=== PATIENT | male | born 1935 | race Caucasian/White ===

== ENCOUNTER 2016-06-25 08:41 | Emergency (ER) | payer MEDICARE, MEDICAID ==
[~2016-06-25 08:41] MED LIST: /ADVA50050 INH; /ALEN70TA OR; /ALEN7SOL; /AMIO20TA; /NITR4TASL SL; /PANT40TA; /PANT40TA OR; /TAMS4CA; /TAMS4CA OR; /WARF25TA; /WARF2TA; /WARF2TA OR; /WARF2TA PO; /WARF3TA; /WARF3TA OR; ACET50TAOT PO; ACETAMIN; ALLO100T; ALLO100T OR; ALLO100T PO; AMBI5TAB; AMBI5TAB OR; ANEXIA; ANEXSIA PO; ANTI25TA; AVOD0.5C; AVOD0.5C OR; BACIOIN20 TOP; BACT800T5 PO; CALC600T53 PO; CALC600T7 PO; CALCCHW12; CALCCHW12 OR; CALCIUM PO; CALCTAB68 PO; CARDIZEM CD; CEFT500T PO; CIAL20TA; COLA100C2; COLA100C2 OR; COLC0.6T; COLC0.6T OR; COLC0.6T34 PO; COLCHICINE PO; COUM1TAB; DIGO0.12 PO; DIGO0.126; DIGO25TA PO; DOCQ100C PO; DRON40TA PO; ELIQ5TAB PO; FISH1000; FISH1000 OR; FISH1000 PO; GLUC500T PO; GUAISYP5 PO; HYDR-3716 PO; HYDR-3719 PO; HYDROCODONE; K-TA10TA OR; K-TA10TA2 PO; KETO2CR TOP; LASI20TA; LASI20TA OR; LASI20TA PO; LASI40TA PO; LEVA250T OR; LEVO125T3 PO; LOPR50TA; LOPR50TA OR; LOVA10TA; LOVA10TA OR; LOVA10TA PO; LOVAZA PO; MAPA325T2 PO; MECL-68 PO; MELA10CA PO; MELA1CAP PO; MELA1CAP2 PO; METF-414 PO; METF500T PO; METO5TAB2; METOPROLOL TARTRATE; METROPROLOL; MILKSUS OR; MILKSUS PO; MIRA33504 PO; MIRALAX; MIRALEX; MIRALEX PO; MORP10SU PO; MORP15TA2 PO; MORP15TASA PO; MULTAG; MULTAQ PO; MULTIVIT PO; NEUR300C PO; NITR3TA SL; NITR4TASL SL; OMEP20CA3 PO; OMEP20TA7 OR; OXYC10TA97; OXYC15TA50; OXYC15TA50 OR; OXYC40TA19; PAIN325T OR; PENNSAID TOP; PERCOCET PO; POLYETHYLENE GLYCOL; POTA10CA2; POTA10CA2 OR; ROBA500T PO; SENN8.6T14; SENO8.6T5; SIMV10TA2 OR; SITA50TAB PO; SPIR25TA2 PO; SYNT100T; SYNT100T OR; THERGRAN; TOPR50TA; TOPR50TA OR; TRAM100T13 PO; TRAM50TA2 OR; TRAM50TA2 PO; TUMS500C PO; TYL; TYL325 PO; VICO5TAB; VICO5TAB OR; VITAMIN D50000 UNT; VITMTA PO; [UNRECOGNIZED DRUG - OTHER] PO; [UNRECOGNIZED DRUG - OTHER] PO; fleet enema PR; pennsaid; qpap PO; voltaren gel EXT
[2016-06-25] MEDS ORDERED: ANEXSIA, NORCO 7.5MG/325MG TABLET(HYDROCODONE/APAP) As Ordered ONE (09:24)
--- NOTE | 2016-06-25 10:35 | REP ---
RIGHT ANKLE, FOUR VIEWS: HISTORY: Trauma. There is no acute fracture or dislocation. The joint space is normal in appearance. The bony structure is osteopenic. IMPRESSION: There is no acute fracture or dislocation. Signed by Suleman Moore MD 06/25/2016 10:37 A
--- NOTE | 2016-06-25 10:37 | REP ---
RIGHT FOOT, FOUR VIEWS: HISTORY: Trauma. COMPARISON: 10/20/2014 There is no acute fracture or dislocation. There are old fractures of the 4th and 5th metatarsals. There is narrowing of the 1st metatarsophalangeal joint space with associated osteophyte formation. The bony structure is osteopenic. An osteophyte is present on the inferior calcaneus. IMPRESSION: There is no acute fracture or dislocation. Signed by Suleman Moore MD 06/25/2016 10:37 A
--- NOTE | 2016-06-25 10:38 | EDDOCDS ---
Physician Documentation [facility] Name: Ari Fish Age: 80 yrs Sex: Male : 1935 Arrival Date: 06/25/2016 Time: 08:41 Bed 11 Private MD: Meenu Bernardo Disposition: 06/25 09:40 I have independently interviewed and examined the patient, and I agree with the sd1 investigation, diagnosis and treatment plan as documented by the Resident. Disposition: 06/25/16 09:49 Discharged to Home/Self Care. Impression: Sprain of ankle. - Condition is Stable. - Discharge Instructions: Ankle Sprain, [id number]. - Medication Reconciliation, Local Pharmacy Hours form. - Follow up: Dr. Meenu Bernardo; When: Call to arrange an appointment; Reason: Recheck today's complaints. - Problem is new. - Symptoms have improved. - Notes: You were evaluated in the emergency department for an ankle sprain. Imaging of your ankle and foot reported no fracture. You were given pain medication while in the ED. Please follow-up with Dr. Bernardo at your soonest convenience. Historical: - Allergies: BETA-ADRENERGIC BLOCKING AGENTS; Coumadin; Indocin; Spironolactone; - Home Meds: 1. allopurinol 100 mg Oral tab 2 tabs once daily (Last dose: 06/25/2016 07:00) 2. Calcarb 600 With Vitamin D 600 mg(1,500mg) -400 unit Oral tab twice a day (Last dose: 06/25/2016 07:00) 3. Colace 100 mg oral cap 1 cap 2 times per day (Last dose: 06/25/2016 07:00) 4. digoxin 125 mcg Oral tab 1 tab once daily (Last dose: 06/25/2016 07:00) 5. Eliquis 5 mg oral tab 1 tab 2 times per day (Last dose: 06/25/2016 07:00) 6. Fish Oil 1,000 mg Oral cap twice a day (Last dose: 06/25/2016 07:00) 7. furosemide 20 mg Oral tab once daily at 1400 (Last dose: 06/24/2016 14:00) 8. furosemide 40 mg Oral tab 1 tab once daily at 0900 (Last dose: 06/25/2016 07:00) 9. Guaifenesin-DM 10-100 mg/5 mL oral liqd every 4 hours (Last dose: 06/25/2016 07:00) 10. hydrocodone-acetaminophen 7.5-325 mg Oral tab 1 tab every 6 hours (Last dose: 06/25/2016 07:00) 11. Januvia 50 mg oral tab 1 tabs once daily (Last dose: 06/25/2016 07:00) 12. levothyroxine 125 mcg Oral cap 1 cap once daily (Last dose: 06/25/2016 07:00) 13. lovastatin 10 mg Oral tab 1 tab once daily (Last dose: 06/25/2016 07:00) 14. melatonin 5 mg Oral tab 2 tab as needed (Last dose: 06/24/2016 20:00) 15. metformin 1,000 mg Oral tab 1 tab 2 times per day (Last dose: 06/25/2016 07:00) 16. morphine 15 mg Oral TbER 1 tab twice a day (Last dose: 06/25/2016 07:00) 17. Multaq 400 mg oral tab 1 tab 2 times per day (Last dose: 06/25/2016 07:00) 18. Multivitamin Oral daily (Last dose: 06/25/2016 07:00) 19. Nitrostat 0.4 mg SL subl 1 tab as needed (Last dose: Unknown) 20. omeprazole 20 mg Oral cpDR 1 cap once daily (Last dose: 06/25/2016 07:00) 21. polyethylene glycol 3350 17 gram oral pwpk 1 packet every other day (Last dose: 06/25/2016 07:00) 22. 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 No barriers to communication noted, Speaks appropriately for age. - Family history: Not pertinent. - : The pt / caregiver states he / she is not on anticoagulants. Home medication list is obtained from the patient. - Exposure Risk Screening:: None identified. Vital Signs: 08:50 BP 144 / 65; Pulse 78; Resp 18; Temp 96.8(O); Pulse Ox 94% on R/A; Weight 86.82 kg / nb2 191.41 lbs (R); Height 6 ft. 2 in. (187.96 cm) (R); Pain 9/10; 08:50 Body Mass Index 24.57 (86.82 kg, 187.96 cm) nb2 MDM: 08:56 Ankle, Complete Ordered. EDMS 08:56 Foot, Complete Ordered. EDMS 09:17 HYDROcodone-acetaminophen 7.5 mg-325 mg 1 tabs PO once; With sips only, please ordered. jo4 09:23 ED course: patient seen and examined foot drop chronic caught foot hyperextension sd1 injury no ankle pain or tenderness neuro vasc intact sluice tender plantar surface plan xray. 09:35 Financial registration complete. mm15 09:36 [facility] Payment Agreement was scanned into [employer] and attached to record. mm15 Administered Medications: 09:29 Drug: HYDROcodone-acetaminophen 1 tabs [hydrocodone 7.5 mg-acetaminophen 325 mg tablet ml6 (1 tabs)] Route: PO; Signatures: Dispatcher [employer] EDPeggy Chang MD MD sd1 Angel Reynolds, RN RN ml6 Gail Ramirez mm15 Jenny Godoy DO DO jo4 The chart was reviewed and I authenticate all verbal orders and agree with the evaluation and treatment provided.Attachments: 09:36 [facility] Payment Agreement mm15 MTDD
--- NOTE | 2016-06-25 10:38 | EDDOCDS ---
Nurse's Notes [facility] Name: Ari Fish Age: 80 yrs Sex: Male : 1935 Arrival Date: 06/25/2016 Time: 08:41 Bed 11 Private MD: Meenu Bernardo Diagnosis: Sprain of ankle Presentation: 06/25 08:50 Presenting complaint: Patient states: states that he tripped and bent right foot back ml6 around 0300, denies fall, c/o pain over dorsum of right foot. Adult Sepsis Screening: The patient does not have new or worsening altered mentation. Patient's respiratory rate is less than 22. Systolic blood pressure is greater than 100. Patient has a qSOFA score of 0- Negative Sepsis Screen. Suicide/Homicide risk assessment- the patient denies having any suicidal and/or homicidal ideations and does not present with any other emotional, behavioral or mental health complaints. Status: Patient is not a client service consultant or dependent. Transition of care: patient was not received from another setting of care. 08:50 Acuity: YAMEL Level 4 ml6 08:50 Method Of Arrival: Ambulance ml6 Triage Assessment: 08:50 General: Appears in no apparent distress, Behavior is appropriate for age, cooperative. ml6 Pain: Location: right lateral malleolus, right medial malleolus and dorsum of right foot Pain currently is 9 out of 10 on a pain scale. Pain does not radiate. Quality of pain is described as aching, Pain began 4 hours ago Is continuous. Neurological: No deficits noted. Level of Consciousness is awake, alert, Oriented to person, place, time. Cardiovascular: No deficits noted. Capillary refill < 3 seconds is brisk in bilateral fingers toes. Respiratory: No deficits noted. Airway is patent Respiratory effort is even, unlabored, Respiratory pattern is regular, symmetrical, Breath sounds are clear bilaterally. GI: No deficits noted. Musculoskeletal: Circulation, motion, and sensation intact Capillary refill < 3 seconds is brisk in bilateral fingers toes Range of motion intact in all extremities. No deformity noted Swelling absent Signs and Symptoms of Compartment Syndrome: no signs of compartment syndrome. Historical: - Allergies: BETA-ADRENERGIC BLOCKING AGENTS; Coumadin; Indocin; Spironolactone; - Home Meds: 1. allopurinol 100 mg Oral tab 2 tabs once daily (Last dose: 06/25/2016 07:00) 2. Calcarb 600 With Vitamin D 600 mg(1,500mg) -400 unit Oral tab twice a day (Last dose: 06/25/2016 07:00) 3. Colace 100 mg oral cap 1 cap 2 times per day (Last dose: 06/25/2016 07:00) 4. digoxin 125 mcg Oral tab 1 tab once daily (Last dose: 06/25/2016 07:00) 5. Eliquis 5 mg oral tab 1 tab 2 times per day (Last dose: 06/25/2016 07:00) 6. Fish Oil 1,000 mg Oral cap twice a day (Last dose: 06/25/2016 07:00) 7. furosemide 20 mg Oral tab once daily at 1400 (Last dose: 06/24/2016 14:00) 8. furosemide 40 mg Oral tab 1 tab once daily at 0900 (Last dose: 06/25/2016 07:00) 9. Guaifenesin-DM 10-100 mg/5 mL oral liqd every 4 hours (Last dose: 06/25/2016 07:00) 10. hydrocodone-acetaminophen 7.5-325 mg Oral tab 1 tab every 6 hours (Last dose: 06/25/2016 07:00) 11. Januvia 50 mg oral tab 1 tabs once daily (Last dose: 06/25/2016 07:00) 12. levothyroxine 125 mcg Oral cap 1 cap once daily (Last dose: 06/25/2016 07:00) 13. lovastatin 10 mg Oral tab 1 tab once daily (Last dose: 06/25/2016 07:00) 14. melatonin 5 mg Oral tab 2 tab as needed (Last dose: 06/24/2016 20:00) 15. metformin 1,000 mg Oral tab 1 tab 2 times per day (Last dose: 06/25/2016 07:00) 16. morphine 15 mg Oral TbER 1 tab twice a day (Last dose: 06/25/2016 07:00) 17. Multaq 400 mg oral tab 1 tab 2 times per day (Last dose: 06/25/2016 07:00) 18. Multivitamin Oral daily (Last dose: 06/25/2016 07:00) 19. Nitrostat 0.4 mg SL subl 1 tab as needed (Last dose: Unknown) 20. omeprazole 20 mg Oral cpDR 1 cap once daily (Last dose: 06/25/2016 07:00) 21. polyethylene glycol 3350 17 gram oral pwpk 1 packet every other day (Last dose: 06/25/2016 07:00) 22. 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 No barriers to communication noted, Speaks appropriately for age. - Family history: Not pertinent. - : The pt / caregiver states he / she is not on anticoagulants. Home medication list is obtained from the patient. - Exposure Risk Screening:: None identified. Screenin:34 Screening information is obtained from the patient. Fall risk: At risk due to age, gait ml6 disturbance. Assistance ADL's: requires no assistance with activities of daily living. Abuse/DV Screen: The patient / caregiver reports he/she is: not in a situation that causes fear, pain or injury. Nutritional screening: No deficits noted. Advance Directives: Currently, there is. home support is adequate. Assessment: 08:50 General: see triage assessment. Musculoskeletal: Circulation, motion, and sensation ml6 intact Capillary refill < 3 seconds is brisk in bilateral fingers toes Range of motion intact in all extremities. No deformity noted Swelling absent Signs and Symptoms of Compartment Syndrome: no signs of compartment syndrome. 09:50 Reassessment: Patient appears in no apparent distress at this time. Patient denies pain ml6 at this time. Patient states feeling better. Patient states symptoms have improved. 10:35 General: Appears in no apparent distress, comfortable. Pain: Location: right foot Pain ml6 currently is 3 out of 10 on a pain scale. Pain does not radiate. Quality of pain is described as aching, Pain began 4 hours ago Is continuous Alleviated by nothing. Aggravated by increased activity. Neurological: No deficits noted. Cardiovascular: No deficits noted. Capillary refill < 3 seconds is brisk in bilateral fingers toes. Respiratory: No deficits noted. GI: No deficits noted. Vital Signs: 08:50 BP 144 / 65; Pulse 78; Resp 18; Temp 96.8(O); Pulse Ox 94% on R/A; Weight 86.82 kg (R); nb2 Height 6 ft. 2 in. (187.96 cm) (R); Pain 9/10; 08:50 Body Mass Index 24.57 (86.82 kg, 187.96 cm) nb2 Vitals: 08:50 Log In Time N/A - ambulance arrival. nb2 ED Course: 08:43 Patient visited by Kelsey Vega, Investigations Manager. lbd 08:43 Meenu Bernardo DO is Private Physician. lbd 08:43 Patient moved to Waiting lbd 08:43 Patient moved to 11 lbd 08:44 [facility] jo4 08:44 Peggy Alvarez MD is Attending Physician. jo4 08:50 Bed in low position. Call light in reach. Side rails up X2. nb2 08:51 Patient visited by Erna Null. nb2 08:51 Triage Initiated ml6 09:00 Patient visited by Jenny Godoy DO. jo4 09:00 Patient visited by Jenny Godoy DO. jo4 09:21 Patient visited by Angel Reynolds RN. ml6 09:36 [facility] Payment Agreement was scanned into [employer] and attached to record. mm15 09:49 Meenu Bernardo DO is Referral Physician. jo4 10:35 The patient / caregiver is instructed regarding the plan of care and ED course. ml6 10:36 No IV's were initiated during this patient's visit. No procedures done that require ml6 assistance. Administered Medications: 09:29 Drug: HYDROcodone-acetaminophen 1 tabs [hydrocodone 7.5 mg-acetaminophen 325 mg tablet ml6 (1 tabs)] Route: PO; Order Results: There are currently no results for this order. Outcome: 09:49 Discharge ordered by Provider. jo4 10:36 Discharge Assessment: patient administered narcotics - yes. Pt provided with safe ml6 discharge. The following High Risk Discharge criteria are identified: None. Discharged to fpc. Report called to [facility]. Condition: stable. Discharge instructions given to patient, Instructed on discharge instructions, follow up and referral plans. medication usage, Demonstrated understanding of instructions, medications, Pt was receptive of discharge instructions/ teaching. No special radiology studies were completed. Property :Personal belongings accompany Pt. 10:36 Patient left the ED. ml6 Signatures: Kelsey Vega, Investigations Manager Unit lbd Angel Reynolds RN RN ml6 Gail Ramirez mm15 Jenny Godoy DO DO jo4 Erna Null nb2 MTDD
--- NOTE | 2016-06-27 11:37 | EDDOCDS ---
Physician Documentation [facility] Name: Ari Fish Age: 80 yrs Sex: Male : 1935 Arrival Date: 06/25/2016 Time: 08:41 Bed 11 Private MD: Meenu Bernardo Disposition: 06/25 09:40 I have independently interviewed and examined the patient, and I agree with the sd1 investigation, diagnosis and treatment plan as documented by the Resident. Disposition: 06/25/16 09:49 Discharged to Home/Self Care. Impression: Sprain of ankle. - Condition is Stable. - Discharge Instructions: Ankle Sprain, [id number]. - Medication Reconciliation, Local Pharmacy Hours form. - Follow up: Dr. Meenu Bernardo; When: Call to arrange an appointment; Reason: Recheck today's complaints. - Problem is new. - Symptoms have improved. - Notes: You were evaluated in the emergency department for an ankle sprain. Imaging of your ankle and foot reported no fracture. You were given pain medication while in the ED. Please follow-up with Dr. Bernardo at your soonest convenience. Historical: - Allergies: BETA-ADRENERGIC BLOCKING AGENTS; Coumadin; Indocin; Spironolactone; - Home Meds: 1. allopurinol 100 mg Oral tab 2 tabs once daily (Last dose: 06/25/2016 07:00) 2. Calcarb 600 With Vitamin D 600 mg(1,500mg) -400 unit Oral tab twice a day (Last dose: 06/25/2016 07:00) 3. Colace 100 mg oral cap 1 cap 2 times per day (Last dose: 06/25/2016 07:00) 4. digoxin 125 mcg Oral tab 1 tab once daily (Last dose: 06/25/2016 07:00) 5. Eliquis 5 mg oral tab 1 tab 2 times per day (Last dose: 06/25/2016 07:00) 6. Fish Oil 1,000 mg Oral cap twice a day (Last dose: 06/25/2016 07:00) 7. furosemide 20 mg Oral tab once daily at 1400 (Last dose: 06/24/2016 14:00) 8. furosemide 40 mg Oral tab 1 tab once daily at 0900 (Last dose: 06/25/2016 07:00) 9. Guaifenesin-DM 10-100 mg/5 mL oral liqd every 4 hours (Last dose: 06/25/2016 07:00) 10. hydrocodone-acetaminophen 7.5-325 mg Oral tab 1 tab every 6 hours (Last dose: 06/25/2016 07:00) 11. Januvia 50 mg oral tab 1 tabs once daily (Last dose: 06/25/2016 07:00) 12. levothyroxine 125 mcg Oral cap 1 cap once daily (Last dose: 06/25/2016 07:00) 13. lovastatin 10 mg Oral tab 1 tab once daily (Last dose: 06/25/2016 07:00) 14. melatonin 5 mg Oral tab 2 tab as needed (Last dose: 06/24/2016 20:00) 15. metformin 1,000 mg Oral tab 1 tab 2 times per day (Last dose: 06/25/2016 07:00) 16. morphine 15 mg Oral TbER 1 tab twice a day (Last dose: 06/25/2016 07:00) 17. Multaq 400 mg oral tab 1 tab 2 times per day (Last dose: 06/25/2016 07:00) 18. Multivitamin Oral daily (Last dose: 06/25/2016 07:00) 19. Nitrostat 0.4 mg SL subl 1 tab as needed (Last dose: Unknown) 20. omeprazole 20 mg Oral cpDR 1 cap once daily (Last dose: 06/25/2016 07:00) 21. polyethylene glycol 3350 17 gram oral pwpk 1 packet every other day (Last dose: 06/25/2016 07:00) 22. 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 No barriers to communication noted, Speaks appropriately for age. - Family history: Not pertinent. - : The pt / caregiver states he / she is not on anticoagulants. Home medication list is obtained from the patient. - Exposure Risk Screening:: None identified. Vital Signs: 08:50 BP 144 / 65; Pulse 78; Resp 18; Temp 96.8(O); Pulse Ox 94% on R/A; Weight 86.82 kg / nb2 191.41 lbs (R); Height 6 ft. 2 in. (187.96 cm) (R); Pain 9/10; 08:50 Body Mass Index 24.57 (86.82 kg, 187.96 cm) nb2 MDM: 08:56 Ankle, Complete Ordered. EDMS 08:56 Foot, Complete Ordered. EDMS 09:17 HYDROcodone-acetaminophen 7.5 mg-325 mg 1 tabs PO once; With sips only, please ordered. jo4 09:23 ED course: patient seen and examined foot drop chronic caught foot hyperextension sd1 injury no ankle pain or tenderness neuro vasc intact picker tender helper plantar surface plan xray. 09:35 Financial registration complete. mm15 09:36 [facility] Payment Agreement was scanned into [employer] and attached to record. mm15 13:23 T-Sheet-- Draft Copy was scanned into [employer] and attached to record. gb 13:24 PCR was scanned into [employer] and attached to record. gb Administered Medications: 09:29 Drug: HYDROcodone-acetaminophen 1 tabs [hydrocodone 7.5 mg-acetaminophen 325 mg tablet ml6 (1 tabs)] Route: PO; Signatures: Dispatcher [employer] EDIA Peggy Alvarez MD MD sd1 Amarilis Degroot, Reg Reg gb Angel Reynolds RN RN ml6 Gail Ramirez mm15 Jenny Godoy DO DO jo4 The chart was reviewed and I authenticate all verbal orders and agree with the evaluation and treatment provided.Attachments: 09:36 [facility] Payment Agreement mm15 13:23 T-Sheet-- Draft Copy Chart Complete MTDD
--- NOTE | 2016-06-27 11:37 | EDDOCDS ---
Physician Documentation [facility] Name: Ari Fish Age: 80 yrs Sex: Male : 1935 Arrival Date: 06/25/2016 Time: 08:41 Bed 11 Private MD: Meenu Bernardo Disposition: 06/25 09:40 I have independently interviewed and examined the patient, and I agree with the sd1 investigation, diagnosis and treatment plan as documented by the Resident. Disposition: 06/25/16 09:49 Discharged to Home/Self Care. Impression: Sprain of ankle. - Condition is Stable. - Discharge Instructions: Ankle Sprain, [id number]. - Medication Reconciliation, Local Pharmacy Hours form. - Follow up: Dr. Meenu Bernardo; When: Call to arrange an appointment; Reason: Recheck today's complaints. - Problem is new. - Symptoms have improved. - Notes: You were evaluated in the emergency department for an ankle sprain. Imaging of your ankle and foot reported no fracture. You were given pain medication while in the ED. Please follow-up with Dr. Bernardo at your soonest convenience. Historical: - Allergies: BETA-ADRENERGIC BLOCKING AGENTS; Coumadin; Indocin; Spironolactone; - Home Meds: 1. allopurinol 100 mg Oral tab 2 tabs once daily (Last dose: 06/25/2016 07:00) 2. Calcarb 600 With Vitamin D 600 mg(1,500mg) -400 unit Oral tab twice a day (Last dose: 06/25/2016 07:00) 3. Colace 100 mg oral cap 1 cap 2 times per day (Last dose: 06/25/2016 07:00) 4. digoxin 125 mcg Oral tab 1 tab once daily (Last dose: 06/25/2016 07:00) 5. Eliquis 5 mg oral tab 1 tab 2 times per day (Last dose: 06/25/2016 07:00) 6. Fish Oil 1,000 mg Oral cap twice a day (Last dose: 06/25/2016 07:00) 7. furosemide 20 mg Oral tab once daily at 1400 (Last dose: 06/24/2016 14:00) 8. furosemide 40 mg Oral tab 1 tab once daily at 0900 (Last dose: 06/25/2016 07:00) 9. Guaifenesin-DM 10-100 mg/5 mL oral liqd every 4 hours (Last dose: 06/25/2016 07:00) 10. hydrocodone-acetaminophen 7.5-325 mg Oral tab 1 tab every 6 hours (Last dose: 06/25/2016 07:00) 11. Januvia 50 mg oral tab 1 tabs once daily (Last dose: 06/25/2016 07:00) 12. levothyroxine 125 mcg Oral cap 1 cap once daily (Last dose: 06/25/2016 07:00) 13. lovastatin 10 mg Oral tab 1 tab once daily (Last dose: 06/25/2016 07:00) 14. melatonin 5 mg Oral tab 2 tab as needed (Last dose: 06/24/2016 20:00) 15. metformin 1,000 mg Oral tab 1 tab 2 times per day (Last dose: 06/25/2016 07:00) 16. morphine 15 mg Oral TbER 1 tab twice a day (Last dose: 06/25/2016 07:00) 17. Multaq 400 mg oral tab 1 tab 2 times per day (Last dose: 06/25/2016 07:00) 18. Multivitamin Oral daily (Last dose: 06/25/2016 07:00) 19. Nitrostat 0.4 mg SL subl 1 tab as needed (Last dose: Unknown) 20. omeprazole 20 mg Oral cpDR 1 cap once daily (Last dose: 06/25/2016 07:00) 21. polyethylene glycol 3350 17 gram oral pwpk 1 packet every other day (Last dose: 06/25/2016 07:00) 22. 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 No barriers to communication noted, Speaks appropriately for age. - Family history: Not pertinent. - : The pt / caregiver states he / she is not on anticoagulants. Home medication list is obtained from the patient. - Exposure Risk Screening:: None identified. Vital Signs: 08:50 BP 144 / 65; Pulse 78; Resp 18; Temp 96.8(O); Pulse Ox 94% on R/A; Weight 86.82 kg / nb2 191.41 lbs (R); Height 6 ft. 2 in. (187.96 cm) (R); Pain 9/10; 08:50 Body Mass Index 24.57 (86.82 kg, 187.96 cm) nb2 MDM: 08:56 Ankle, Complete Ordered. EDMS 08:56 Foot, Complete Ordered. EDMS 09:17 HYDROcodone-acetaminophen 7.5 mg-325 mg 1 tabs PO once; With sips only, please ordered. 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 09:35 Financial registration complete. mm15 09:36 [facility] Payment Agreement was scanned into [employer] and attached to record. mm15 13:23 T-Sheet-- Draft Copy was scanned into [employer] and attached to record. gb 13:24 PCR was scanned into [employer] and attached to record. gb Administered Medications: 09:29 Drug: HYDROcodone-acetaminophen 1 tabs [hydrocodone 7.5 mg-acetaminophen 325 mg tablet ml6 (1 tabs)] Route: PO; Signatures: Dispatcher [employer] EDSD Peggy Alvarez MD MD sd1 Amarilis Degroot, Reg Reg gb Angel Reynolds RN RN ml6 Gail Ramirez mm15 Jenny Godoy DO DO jo4 The chart was reviewed and I authenticate all verbal orders and agree with the evaluation and treatment provided.Attachments: 09:36 [facility] Payment Agreement mm15 13:23 T-Sheet-- Draft Copy Chart Complete MTDD
--- NOTE | 2016-06-27 11:37 | EDDOCDS ---
Nurse's Notes [facility] Name: Ari Fish Age: 80 yrs Sex: Male : 1935 Arrival Date: 06/25/2016 Time: 08:41 Bed 11 Private MD: Meenu Bernardo Diagnosis: Sprain of ankle Presentation: 06/25 08:50 Presenting complaint: Patient states: states that he tripped and bent right foot back ml6 around 0300, denies fall, c/o pain over dorsum of right foot. Adult Sepsis Screening: The patient does not have new or worsening altered mentation. Patient's respiratory rate is less than 22. Systolic blood pressure is greater than 100. Patient has a qSOFA score of 0- Negative Sepsis Screen. Suicide/Homicide risk assessment- the patient denies having any suicidal and/or homicidal ideations and does not present with any other emotional, behavioral or mental health complaints. Status: Patient is not a patient service associate or dependent. Transition of care: patient was not received from another setting of care. 08:50 Acuity: YAMEL Level 4 ml6 08:50 Method Of Arrival: Ambulance ml6 Triage Assessment: 08:50 General: Appears in no apparent distress, Behavior is appropriate for age, cooperative. ml6 Pain: Location: right lateral malleolus, right medial malleolus and dorsum of right foot Pain currently is 9 out of 10 on a pain scale. Pain does not radiate. Quality of pain is described as aching, Pain began 4 hours ago Is continuous. Neurological: No deficits noted. Level of Consciousness is awake, alert, Oriented to person, place, time. Cardiovascular: No deficits noted. Capillary refill < 3 seconds is brisk in bilateral fingers toes. Respiratory: No deficits noted. Airway is patent Respiratory effort is even, unlabored, Respiratory pattern is regular, symmetrical, Breath sounds are clear bilaterally. GI: No deficits noted. Musculoskeletal: Circulation, motion, and sensation intact Capillary refill < 3 seconds is brisk in bilateral fingers toes Range of motion intact in all extremities. No deformity noted Swelling absent Signs and Symptoms of Compartment Syndrome: no signs of compartment syndrome. Historical: - Allergies: BETA-ADRENERGIC BLOCKING AGENTS; Coumadin; Indocin; Spironolactone; - Home Meds: 1. allopurinol 100 mg Oral tab 2 tabs once daily (Last dose: 06/25/2016 07:00) 2. Calcarb 600 With Vitamin D 600 mg(1,500mg) -400 unit Oral tab twice a day (Last dose: 06/25/2016 07:00) 3. Colace 100 mg oral cap 1 cap 2 times per day (Last dose: 06/25/2016 07:00) 4. digoxin 125 mcg Oral tab 1 tab once daily (Last dose: 06/25/2016 07:00) 5. Eliquis 5 mg oral tab 1 tab 2 times per day (Last dose: 06/25/2016 07:00) 6. Fish Oil 1,000 mg Oral cap twice a day (Last dose: 06/25/2016 07:00) 7. furosemide 20 mg Oral tab once daily at 1400 (Last dose: 06/24/2016 14:00) 8. furosemide 40 mg Oral tab 1 tab once daily at 0900 (Last dose: 06/25/2016 07:00) 9. Guaifenesin-DM 10-100 mg/5 mL oral liqd every 4 hours (Last dose: 06/25/2016 07:00) 10. hydrocodone-acetaminophen 7.5-325 mg Oral tab 1 tab every 6 hours (Last dose: 06/25/2016 07:00) 11. Januvia 50 mg oral tab 1 tabs once daily (Last dose: 06/25/2016 07:00) 12. levothyroxine 125 mcg Oral cap 1 cap once daily (Last dose: 06/25/2016 07:00) 13. lovastatin 10 mg Oral tab 1 tab once daily (Last dose: 06/25/2016 07:00) 14. melatonin 5 mg Oral tab 2 tab as needed (Last dose: 06/24/2016 20:00) 15. metformin 1,000 mg Oral tab 1 tab 2 times per day (Last dose: 06/25/2016 07:00) 16. morphine 15 mg Oral TbER 1 tab twice a day (Last dose: 06/25/2016 07:00) 17. Multaq 400 mg oral tab 1 tab 2 times per day (Last dose: 06/25/2016 07:00) 18. Multivitamin Oral daily (Last dose: 06/25/2016 07:00) 19. Nitrostat 0.4 mg SL subl 1 tab as needed (Last dose: Unknown) 20. omeprazole 20 mg Oral cpDR 1 cap once daily (Last dose: 06/25/2016 07:00) 21. polyethylene glycol 3350 17 gram oral pwpk 1 packet every other day (Last dose: 06/25/2016 07:00) 22. 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 No barriers to communication noted, Speaks appropriately for age. - Family history: Not pertinent. - : The pt / caregiver states he / she is not on anticoagulants. Home medication list is obtained from the patient. - Exposure Risk Screening:: None identified. Screenin:34 Screening information is obtained from the patient. Fall risk: At risk due to age, gait ml6 disturbance. Assistance ADL's: requires no assistance with activities of daily living. Abuse/DV Screen: The patient / caregiver reports he/she is: not in a situation that causes fear, pain or injury. Nutritional screening: No deficits noted. Advance Directives: Currently, there is. home support is adequate. Assessment: 08:50 General: see triage assessment. Musculoskeletal: Circulation, motion, and sensation ml6 intact Capillary refill < 3 seconds is brisk in bilateral fingers toes Range of motion intact in all extremities. No deformity noted Swelling absent Signs and Symptoms of Compartment Syndrome: no signs of compartment syndrome. 09:50 Reassessment: Patient appears in no apparent distress at this time. Patient denies pain ml6 at this time. Patient states feeling better. Patient states symptoms have improved. 10:35 General: Appears in no apparent distress, comfortable. Pain: Location: right foot Pain ml6 currently is 3 out of 10 on a pain scale. Pain does not radiate. Quality of pain is described as aching, Pain began 4 hours ago Is continuous Alleviated by nothing. Aggravated by increased activity. Neurological: No deficits noted. Cardiovascular: No deficits noted. Capillary refill < 3 seconds is brisk in bilateral fingers toes. Respiratory: No deficits noted. GI: No deficits noted. Vital Signs: 08:50 BP 144 / 65; Pulse 78; Resp 18; Temp 96.8(O); Pulse Ox 94% on R/A; Weight 86.82 kg (R); nb2 Height 6 ft. 2 in. (187.96 cm) (R); Pain 9/10; 08:50 Body Mass Index 24.57 (86.82 kg, 187.96 cm) nb2 Vitals: 08:50 Log In Time N/A - ambulance arrival. nb2 ED Course: 08:43 Patient visited by Kelsey Vega, Furniture Packer. lbd 08:43 Meenu Bernardo DO is Private Physician. lbd 08:43 Patient moved to Waiting lbd 08:43 Patient moved to 11 lbd 08:44 [facility] jo[facility] 08:44 Peggy Alvarez MD is Attending Physician. jo4 08:50 Bed in low position. Call light in reach. Side rails up X2. nb2 08:51 Patient visited by Erna Null. nb2 08:51 Triage Initiated ml6 09:00 Patient visited by Jenny Godoy DO. jo4 09:00 Patient visited by Jenny Godoy DO. jo4 09:21 Patient visited by Angel Reynolds RN. ml6 09:36 [facility] Payment Agreement was scanned into [employer] and attached to record. mm15 09:49 Meenu Bernardo DO is Referral Physician. jo4 10:35 The patient / caregiver is instructed regarding the plan of care and ED course. ml6 10:36 No IV's were initiated during this patient's visit. No procedures done that require ml6 assistance. 10:46 Ankle, Complete Returned. EDMS 10:46 Foot, Complete Returned. EDMS 13:23 T-Sheet-- Draft Copy was scanned into [employer] and attached to record. gb 13:24 PCR was scanned into [employer] and attached to record. gb Administered Medications: 09:29 Drug: HYDROcodone-acetaminophen 1 tabs [hydrocodone 7.5 mg-acetaminophen 325 mg tablet ml6 (1 tabs)] Route: PO; Order Results: Radiology Order: Ankle, Complete Test: Ankle, Complete REASON FOR EXAMINATION: Trauma; RIGHT ANKLE, FOUR VIEWS:; ; HISTORY: Trauma.; ; There is no acute fracture or dislocation. The joint space is normal in; appearance. The bony structure is osteopenic.; ; IMPRESSION:; ; There is no acute fracture or dislocation.; ; ; Signed by; Suleman Moore MD 06/25/2016 10:37 A; Radiology Order: Foot, Complete Test: Foot, Complete REASON FOR EXAMINATION: Trauma; RIGHT FOOT, FOUR VIEWS:; ; HISTORY: Trauma.; ; COMPARISON: 10/20/2014; ; There is no acute fracture or dislocation. There are old fractures of the 4th; and 5th metatarsals. There is narrowing of the 1st metatarsophalangeal joint; space with associated osteophyte formation. The bony structure is osteopenic.; An osteophyte is present on the inferior calcaneus.; ; IMPRESSION:; ; There is no acute fracture or dislocation.; ; ; Signed by; Suleman Moore MD 06/25/2016 10:37 A; Outcome: 09:49 Discharge ordered by Provider. [email or web address] 10:36 Discharge Assessment: patient administered narcotics - yes. Pt provided with safe ml6 discharge. The following High Risk Discharge criteria are identified: None. Discharged to long-term. Report called to [facility]. Condition: stable. Discharge instructions given to patient, Instructed on discharge instructions, follow up and referral plans. medication usage, Demonstrated understanding of instructions, medications, Pt was receptive of discharge instructions/ teaching. No special radiology studies were completed. Property :Personal belongings accompany Pt. 10:36 Patient left the ED. ml6 Signatures: Dispatcher [employer] EDMS Kelsey Vega, Furniture Packer Unit lbd Amarilis Degroot, Reg Reg Angel Craig, RN RN ml6 Gail Ramirez mm15 Jenny Godoy DO DO jo4 Baart, Nicole nb2 Chart Complete MTDD
== END 2016-06-25 10:36 | disposition home or self-care (01) ==
LOC: M ED 08:41
DX: S93.601A Unspecified sprain of right foot, initial encounter (principal); X58.XXXA Exposure to other specified factors, initial encounter; Y92.129 Unspecified place in nursing home as the place of occurrence of the external cause; Y93.01 Activity, walking, marching and hiking; Y99.9 Unspecified external cause status; M19.90 Unspecified osteoarthritis, unspecified site; I48.91 Unspecified atrial fibrillation; I50.9 Heart failure, unspecified; J44.9 Chronic obstructive pulmonary disease, unspecified; E11.9 Type 2 diabetes mellitus without complications; I10 Essential (primary) hypertension; E03.9 Hypothyroidism, unspecified; M81.0 Age-related osteoporosis without current pathological fracture; G47.30 Sleep apnea, unspecified; Z95.5 Presence of coronary angioplasty implant and graft; Z87.891 Personal history of nicotine dependence; Z79.891 Long term (current) use of opiate analgesic; Z79.899 Other long term (current) drug therapy; Z88.8 Allergy status to other drugs, medicaments and biological substances

== ENCOUNTER → 2016-07-07 | Outpatient (REF) | payer MEDICARE, MEDICAID ==
[2016-07-07 11:20] LABS: MEAN CORPUSCULAR HEMOGLOBIN 26.5 pg (27.0-33.0); MEAN CORPUSCULAR HGB CONC 31.6 g/dl (32.0-36.5); MEAN CORPUSCULAR VOLUME 83.8 fl (80.0-96.0); WHITE BLOOD COUNT 11.9 K/mm3 (4.0-10.0)
[2016-07-07 12:11] LABS: ALBUMIN 3.4 GM/DL (3.2-5.2); ALBUMIN/GLOBULIN RATIO 0.94 (1.00-1.93); ALKALINE PHOSPHATASE 65 U/L (45-117); ALT/SGPT 33 U/L (12-78); ANION GAP 13 MEQ/L (8-16); AST/SGOT 40 U/L (15-37); BILIRUBIN,TOTAL 0.4 MG/DL (0.2-1.0); BLOOD UREA NITROGEN 20 MG/DL (7-18); CALCIUM LEVEL 9.2 MG/DL (8.8-10.2); CARBON DIOXIDE LEVEL 28 MEQ/L (21-32); CHLORIDE LEVEL 97 MEQ/L (98-107); CREATININE FOR GFR 1.09 MG/DL (0.70-1.30); GLOMERULAR FILTRATION RATE > 60.0 (>35); GLUCOSE, FASTING 224 MG/DL (83-110); POTASSIUM SERUM 3.9 MEQ/L (3.5-5.1); SODIUM LEVEL 138 MEQ/L (136-145)
== END | disposition home or self-care (01) ==
PROVIDERS: ATTEND Physician Assistant
DX: I50.32 Chronic diastolic (congestive) heart failure (principal)

== ENCOUNTER → 2016-07-08 | Outpatient (CLI) | payer MEDICARE ==
--- NOTE | 2016-07-22 02:25 | ECWPNPC ---
PATIENT NAME: TY MARIE : 1935 GENDER: MALE VISIT DATE: 07/08/2016 DISCHARGE DATE: 07/08/16 1152 VISIT LOCKED DATE TIME: PHYSICIAN: MARIELOS CHAVEZ RESOURCE: MARIELOS CHAVEZ REASON FOR APPOINTMENT 1. FOLLOWUP HISTORY OF PRESENT ILLNESS HISTORY OF PRESENT ILLNESS: PAIN THE PATIENT DESCRIBES THE PAIN... FALL RISK SCREENING: SCREENING :NO FALLS IN THE PAST YEAR TODAY'S VISIT: NOTES: RATES PAIN TODAY 12/06. PAIN IS CENTERED IN MID AND LOW BACK. PAINMEDS ARE HELPFUL. IS HAVING MORE PROBLEMS WITH FOOT DROP AND HAS BRACES FOR BOTH FEET. 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 . CURRENT MEDICATIONS TAKING ALLOPURINOL 100 MG TABLET 1 TABLET ORALLY TWICE A DAY TAKING CALCIUM 600 MG TABLET 1TAB ORALLY BID TAKING FUROSEMIDE 40 MG TABLET 1 TABLET ORALLY DAILY IN THE AM, NOTES: IN AM TAKING LOVASTATIN 10 MG TABLET 1 TABLET WITH A MEAL ORALLY ONCE A DAY TAKING DOCUSATE SODIUM 100 MG CAPSULE 1 CAPSULE ORALLY BID TAKING MULTIVITAMINS TABLET 1TAB ORALLY DAILY TAKING POTASSIUM CHLORIDE 10 MEQ CAPSULE EXTENDED RELEASE 2 CAPSULE ORALLY TWICE A DAY TAKING ELIQUIS 5MG TABLET 1TAB ORAL TWICE DAILY TAKING DIGOXIN 125 MCG TABLET 1 TABLET ORALLY ONCE A DAY TAKING FISH OIL 1000 MG CAPSULE 1 CAPSULE ORALLY BID TAKING LEVOTHYROXINE SODIUM 125 MCG TABLET 1 TABLET ON AN EMPTY STOMACH IN THE MORNING ORALLY ONCE A DAY TAKING MULTAQ 400 MG TABLET 1 TABLET WITH MEALS ORALLY TWICE A DAY TAKING POLYETHYLENE GLYCOL POWDER 17MG Q OTHER DAY TAKING OMEPRAZOLE 20MG 20MG TABLET 1CAP ORAL DAILY TAKING HYDROCODONE-ACETAMINOPHEN 10-325 MG TABLET 1 TAB ORALLY EVERY 4- 6 HRSMDD4 TAKING COLACE 200 CAPSULE 1 CAPSULE NEEDED ORALLY TWICE DAILY TAKING LASIX 20 MG TABLET 1 TABLET ORALLY ONCE A DAY IN THE AFTERNOON, NOTES: IN AFTERNOON TAKING MELATONIN 10 MG TABLET 1 TAB ORALLY ONCE DAILY TAKING NITROSTAT 0.4 MG TABLET SUBLINGUAL SUBLINGUAL DIRECTED TAKING JANUVIA 50 MG TABLET 1 TAB ORALLY ONCE A DAY TAKING METFORMIN HCL 1000 MG TABLET 1 TABLET WITH MEALS ORALLY TWICE A DAY TAKING ACETAMINOPHEN 500 MG TABLET 1 TABLET NEEDED ORALLY EVERY 6 HRS PRN PAIN OR FEVER MDD=4 TAKE WITH TRAMADOL TAKING NORCO 7.5-325 MG TABLET 1 TABLET ORALLY EVERY 6 HRS PRN PAIN MDD=4 TAKING MORPHINE SULFATE ER 15 MG TABLET EXTENDED RELEASE 1 TABLET ORALLY TAKE 1 TAB Q 12 HOURS MDD=2 NOT-TAKING MECLIZINE HCL 25 MG TABLET CHEWABLE 1 TABLET ORALLY THREE TIMES A DAY PRN NOT-TAKING ZOLPIDEM TARTRATE 12.5 MG TABLET EXTENDED RELEASE 2 TABLET AT BEDTIME NEEDED ORALLY ONCE A DAY NOT-TAKING CHELSEA ALLERGY 180 MG TABLET 1 TABLET ORALLY ONCE A DAY NOT-TAKING TAMSULOSIN HCL 0.4 MG CAPSULE 1 CAPSULE 30 MINUTES AFTER THE SAME MEAL EACH DAY ORALLY ONCE A DAY NOT-TAKING SPIRONOLACTONE 25 MG TABLET 1 TABLET ORALLY ONCE A DAY MEDICATION LIST REVIEWED AND RECONCILED WITH THE PATIENT PAST MEDICAL HISTORY BPH HYPERLIPIDEMIA DVT GOUT KIDNEY STONES PNEUMONIA HYPERTENSION CHF ? TB ALLERGIES INDOCIN: HALLUCINATION: SIDE EFFECTS SOCIAL HISTORY GENERAL: TOBACCO USE ARE YOU A:NONSMOKER LEARNING BARRIERS / SPECIAL NEEDS ORIENTED TO PLAN OF CARE: PATIENT, PAIN MANAGEMENT PATIENT, ORIENTED TO PLAN OF CARE: PATIENT, PAIN MANAGEMENT PATIENT. NEW PATIENT PAIN DIARY TODAY'S VISITNOTES FROM 0-10, WHAT LEVEL IS YOUR PAIN TODAY?0 PAIN CLINIC PFS, CLERGY, PUBLIC HEALTH REFERRALS PFS REFERRAL NEEDED?NO CLERGY REFERRAL NEEDED?NO PUBLIC HEALTH REFERRAL NEEDED?NO WAS THE PROVIDER NOTIFIED OF ANY PERTINENT INFO?NO PFS REFERRAL NEEDED?NO CLERGY REFERRAL NEEDED?NO PUBLIC HEALTH REFERRAL NEEDED?NO WAS THE PROVIDER NOTIFIED OF ANY PERTINENT INFO?NO REVIEW OF SYSTEMS CONSTITUTIONAL: ANY CHANGE IN YOUR MEDICAL CONDITION? NO . CHILLS NO . FEVER NO . INFECTION: DO YOU HAVE NEW INFECTIONS? NO . DO YOU HAVE HISTORY OF MRSA? NO . MUSCULOSKELETAL: ANY NEW PATTERNS OF PAIN OR NUMBNESS? NO . GASTROENTEROLOGY: ANY NEW CHANGE IN BOWEL CONTROL? NO . GENITOURINARY: ANY NEW CHANGE IN BLADDER CONTROL? NO . IS THERE A CHANCE YOU COULD BE ? NO . HEMATOLOGY/LYMPH: DO YOU TAKE ANY BLOOD THINNERS? (FOR EXAMPLE- COUMADIN, PLAVIX, AGGRENOX, PLATEL, PRADAXA, OR XARELTO) NO . WHEN WAS YOUR LAST DOSE? DATE: TIME: . NEUROLOGY: HAVE YOU FALLEN IN THE PAST 6 MONTHS? IN FX PELVIS . ANY NEW EXTREMITY NUMBNESS OR WEAKNESS? NO . CARDIOLOGY: DO YOU HAVE A PACEMAKER OR DEFIBRILLATOR? NO . RESPIRATORY: HAVE YOU BEEN SICK IN THE PAST WEEK? NO . FEVER NO . FLU LIKE SYMPTOMS? NO . COUGH NO . INTEGUMENTARY: DO YOU HAVE ANY RASHES OR OPEN SORES? NO . ALLERGIC/IMMUNO: ARE YOU ALLERGIC TO SHELLFISH OR IV DYE? NO . ANY NEW ALLERGIES? NO . PSYCHIATRIC: DO YOU HAVE THOUGHTS OF HURTING YOURSELF OR SOMEONE ELSE? NO . ARE YOU ABUSED, NEGLECTED, OR IN AN UNSAFE ENVIRONMENT? NO . ENDOCRINOLOGY: ARE YOU DIABETIC? YES - BLOOD SUGARS ABOUT 140 . OTHER: DO YOU NEED ANY PRESCRIPTIONS? NO . IF YES, PLEASE LIST: ____ . ANY NEW PROBLEMS WITH YOUR MEDICATIONS? NO . WHEN DID YOU LAST EAT? ____ . WHEN DID YOU LAST DRINK? ____ . WHAT DID YOU LAST DRINK? ____ . NAME OF PERSON DRIVING YOU HOME? ____ . DO YOU HAVE ANY OTHER QUESTIONS OR CONCERNS NO . REVIEWED BY: PROVIDER: MARIELOS MATTSON . VITAL SIGNS WT 191.8 LBS, HT 74 IN, BMI 24.62 INDEX, BP 133/65 MM HG, REPEAT BP 131/69 MM HG, HR 80 /MIN, RR 18 /MIN, TEMP 99.2 F, OXYGEN SAT % 93%, NA INITIALS SC 10:46. EXAMINATION GENERAL EXAMINATION: GENERAL APPEARANCE:POWER CHAIR USED FOR MOBILITY. PSYCHALERT , ORIENTED X 3 , APPROPRIATE MOOD AND AFFECT . HEENT:HARD OF HEARING. LUNGS:CLEAR TO AUSCULTATION BILATERALLY. HEART:HEART RATE REGULAR, 2/6 MURMUR WITH RADIATION TO BILATERAL CAROTIDS. MUSCULOSKELETAL:PALPATION: POSITIVE FOR PAIN OVER L/S SPINE. POSITIVE FOR PAIN OVER L/S PARSPINALS LEFT SIDE WORSE THAN RIGHT. AFO SPLINT TO BOTH LOWER EXTREMITIES. LEFT UPPER EXTREMITY ATRROPHY. . 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 WALK WITH WALKER ABLE. WILL TALK TO DOUG AT [facility] ABOUT OIC ME4DS AND NEED FOR MEDS. PROCEDURE CODES FA211 ESTABILISHED PATIENT [facility] FACILITY CHARGE G8730 PAIN ASSESS POS TOOL F/U PLAN DOC G8427 DOC MEDS VERIFIED W/PT OR RE DISPOSITION & COMMUNICATION FOLLOW UP 3 MONTHS ELECTRONICALLY SIGNED BY JESUS BARTNO ON 07/21/2016 AT 02:55 PM EST DISCLAIMER : THIS IS A VISIT SUMMARY EXTRACTED FROM THE [employer] CHART. IT IS NOT A COPY OF THE [employer] PROGRESS NOTE. HERNANDO
== END ==
LOC: M PAIN 10:40
PROVIDERS: ATTEND Nurse Practitioner Family
DX: Z09 Encounter for follow-up examination after completed treatment for conditions other than malignant neoplasm (principal); G89.29 Other chronic pain; M46.96 Unspecified inflammatory spondylopathy, lumbar region; M54.6 Pain in thoracic spine; M25.50 Pain in unspecified joint; R76.11 Nonspecific reaction to tuberculin skin test without active tuberculosis; E11.9 Type 2 diabetes mellitus without complications; E03.9 Hypothyroidism, unspecified; E78.5 Hyperlipidemia, unspecified; I10 Essential (primary) hypertension; Z86.79 Personal history of other diseases of the circulatory system; Z86.718 Personal history of other venous thrombosis and embolism; Z87.39 Personal history of other diseases of the musculoskeletal system and connective tissue; Z88.8 Allergy status to other drugs, medicaments and biological substances; Z79.1 Long term (current) use of non-steroidal anti-inflammatories (NSAID); Z79.899 Other long term (current) drug therapy; Z79.01 Long term (current) use of anticoagulants; Z79.891 Long term (current) use of opiate analgesic; Z79.84 Long term (current) use of oral hypoglycemic drugs

== ENCOUNTER → 2016-07-13 | Outpatient (REF) | payer MEDICARE ==
[2016-07-13 10:53] LABS: MEAN CORPUSCULAR HEMOGLOBIN 26.7 pg (27.0-33.0); MEAN CORPUSCULAR HGB CONC 32.1 g/dl (32.0-36.5); MEAN CORPUSCULAR VOLUME 83.1 fl (80.0-96.0); RED CELL DISTRIBUTION WIDTH 14.4 % (11.5-14.5); WHITE BLOOD COUNT 12.8 K/mm3 (4.0-10.0)
[2016-07-13 11:51] LABS: ALBUMIN 3.6 GM/DL (3.2-5.2); ALBUMIN/GLOBULIN RATIO 0.84 (1.00-1.93); ALKALINE PHOSPHATASE 75 U/L (45-117); ALT/SGPT 38 U/L (12-78); ANION GAP 13 MEQ/L (8-16); AST/SGOT 45 U/L (15-37); BILIRUBIN,TOTAL 0.7 MG/DL (0.2-1.0); BLOOD UREA NITROGEN 19 MG/DL (7-18); CALCIUM LEVEL 9.2 MG/DL (8.8-10.2); CARBON DIOXIDE LEVEL 27 MEQ/L (21-32); CHLORIDE LEVEL 97 MEQ/L (98-107); CREATININE FOR GFR 1.08 MG/DL (0.70-1.30); GLOMERULAR FILTRATION RATE > 60.0 (>35); GLUCOSE, FASTING 136 MG/DL (83-110); POTASSIUM SERUM 4.1 MEQ/L (3.5-5.1); SODIUM LEVEL 137 MEQ/L (136-145); TOTAL PROTEIN 7.9 GM/DL (6.4-8.2)
== END ==
PROVIDERS: ATTEND Physician Assistant
DX: I50.32 Chronic diastolic (congestive) heart failure (principal)

== ENCOUNTER → 2016-09-30 | Outpatient (REF) | payer MEDICARE ==
[2016-10-01 14:06] LABS: PERCENT SATURATION 12.2 % (19.7-37.4)
== END ==
LOC: M LAB REF 13:04
PROVIDERS: ATTEND Internal Medicine
DX: D64.9 Anemia, unspecified (principal)

== ENCOUNTER → 2016-10-05 | Outpatient (CLI) | payer MEDICARE ==
--- NOTE | 2016-10-26 00:22 | ECWPNPC ---
PATIENT NAME: TY MARIE : 1935 GENDER: MALE VISIT DATE: 10/05/2016 DISCHARGE DATE: 10/05/16 1145 VISIT LOCKED DATE TIME: PHYSICIAN: MARIELOS CHAVEZ RESOURCE: MARIELOS CHAVEZ REASON FOR APPOINTMENT 1. BACK HISTORY OF PRESENT ILLNESS HISTORY OF PRESENT ILLNESS: PAIN THE PATIENT DESCRIBES THE PAIN... FALL RISK SCREENING: SCREENING :NO FALLS IN THE PAST YEAR TODAY'S VISIT: NOTES: RATES PAIN TODAY 8/10. DESCRIBES PAIN CONSTANT, ACHING AND THROBBING. HAS BEEN NOTING DISCOMFORT IN LOW BACK AND NEW BURNING IN RIGHT GREAT TOE. WALKS DAILY AT [employer] AND HAS PHYSICAL THERAPIST COMING TO WORK WITH HIM. . CURRENT MEDICATIONS TAKING ALLOPURINOL 100 MG TABLET 1 TABLET ORALLY TWICE A DAY TAKING FUROSEMIDE 40 MG TABLET 1 TABLET ORALLY DAILY IN THE AM, NOTES: IN AM TAKING CALCIUM 600 MG TABLET 1TAB ORALLY BID TAKING LOVASTATIN 10 MG TABLET 1 TABLET WITH A MEAL ORALLY ONCE A DAY TAKING MULTIVITAMINS TABLET 1TAB ORALLY DAILY TAKING POTASSIUM CHLORIDE 10 MEQ CAPSULE EXTENDED RELEASE 2 CAPSULE ORALLY TWICE A DAY TAKING ELIQUIS 5MG TABLET 1TAB ORAL TWICE DAILY TAKING DIGOXIN 125 MCG TABLET 1 TABLET ORALLY ONCE A DAY TAKING FISH OIL 1000 MG CAPSULE 1 CAPSULE ORALLY BID TAKING LEVOTHYROXINE SODIUM 125 MCG TABLET 1 TABLET ON AN EMPTY STOMACH IN THE MORNING ORALLY ONCE A DAY TAKING MULTAQ 400 MG TABLET 1 TABLET WITH MEALS ORALLY TWICE A DAY TAKING POLYETHYLENE GLYCOL POWDER 17MG Q OTHER DAY TAKING OMEPRAZOLE 20MG 20MG TABLET 1CAP ORAL DAILY TAKING HYDROCODONE-ACETAMINOPHEN 10-325 MG TABLET 1 TAB ORALLY EVERY 4- 6 HRSMDD4 TAKING COLACE 200 CAPSULE 1 CAPSULE NEEDED ORALLY TWICE DAILY TAKING LASIX 20 MG TABLET 1 TABLET ORALLY ONCE A DAY IN THE AFTERNOON, NOTES: IN AFTERNOON TAKING NITROSTAT 0.4 MG TABLET SUBLINGUAL SUBLINGUAL DIRECTED TAKING JANUVIA 50 MG TABLET 1 TAB ORALLY ONCE A DAY TAKING METFORMIN HCL 1000 MG TABLET 1 TABLET WITH MEALS ORALLY TWICE A DAY TAKING ACETAMINOPHEN 500 MG TABLET 1 TABLET NEEDED ORALLY EVERY 6 HRS PRN PAIN OR FEVER MDD=4 TAKE WITH TRAMADOL TAKING DOCUSATE SODIUM 100 MG CAPSULE 1 CAPSULE ORALLY BID TAKING MORPHINE SULFATE ER 15 MG TABLET EXTENDED RELEASE 1 TABLET ORALLY TAKE 1 TAB TWICE A DAY MDD=2 *RESIDENT MAY REFUSE AM DOSE* TAKING NORCO 10-325 MG TABLET 1 TABLET NEEDED ORALLY EVERY 6 HRS NOT-TAKING NORCO 7.5-325 MG TABLET 1 TABLET ORALLY EVERY 6 HRS PRN PAIN MDD=4 NOT-TAKING MELATONIN 10 MG TABLET 1 TAB ORALLY ONCE DAILY NOT-TAKING MECLIZINE HCL 25 MG TABLET CHEWABLE 1 TABLET ORALLY THREE TIMES A DAY PRN NOT-TAKING ZOLPIDEM TARTRATE 12.5 MG TABLET EXTENDED RELEASE 2 TABLET AT BEDTIME NEEDED ORALLY ONCE A DAY NOT-TAKING CHELSEA ALLERGY 180 MG TABLET 1 TABLET ORALLY ONCE A DAY NOT-TAKING TAMSULOSIN HCL 0.4 MG CAPSULE 1 CAPSULE 30 MINUTES AFTER THE SAME MEAL EACH DAY ORALLY ONCE A DAY NOT-TAKING SPIRONOLACTONE 25 MG TABLET 1 TABLET ORALLY ONCE A DAY MEDICATION LIST REVIEWED AND RECONCILED WITH THE PATIENT PAST MEDICAL HISTORY BPH HYPERLIPIDEMIA DVT GOUT KIDNEY STONES PNEUMONIA HYPERTENSION CHF ? TB ALLERGIES INDOCIN: HALLUCINATION: SIDE EFFECTS SURGICAL HISTORY TURP CATARACT CYSTOSCOPY SEVERAL LEFT ARM SURG AND TONSILLECTOMY DISTANT PAST LITHOTRIPSY HOSPITALIZATION/MAJOR DIAGNOSTIC PROCEDURE SURGERY RELATED REVIEW OF SYSTEMS CONSTITUTIONAL: ANY CHANGE IN YOUR MEDICAL CONDITION? NO . CHILLS NO . FEVER NO . INFECTION: DO YOU HAVE NEW INFECTIONS? NO . DO YOU HAVE HISTORY OF MRSA? NO . MUSCULOSKELETAL: ANY NEW PATTERNS OF PAIN OR NUMBNESS? NO . GASTROENTEROLOGY: ANY NEW CHANGE IN BOWEL CONTROL? NO . GENITOURINARY: ANY NEW CHANGE IN BLADDER CONTROL? NO . IS THERE A CHANCE YOU COULD BE ? NO . HEMATOLOGY/LYMPH: DO YOU TAKE ANY BLOOD THINNERS? (FOR EXAMPLE- COUMADIN, PLAVIX, AGGRENOX, PLATEL, PRADAXA, OR XARELTO) YES . WHEN WAS YOUR LAST DOSE? DATE: TIME: . NEUROLOGY: HAVE YOU FALLEN IN THE PAST 6 MONTHS? NO . ANY NEW EXTREMITY NUMBNESS OR WEAKNESS? NO . CARDIOLOGY: DO YOU HAVE A PACEMAKER OR DEFIBRILLATOR? NO . RESPIRATORY: HAVE YOU BEEN SICK IN THE PAST WEEK? NO . FEVER NO . FLU LIKE SYMPTOMS? NO . COUGH NO . INTEGUMENTARY: DO YOU HAVE ANY RASHES OR OPEN SORES? NO . ALLERGIC/IMMUNO: ARE YOU ALLERGIC TO SHELLFISH OR IV DYE? NO . ANY NEW ALLERGIES? NO . PSYCHIATRIC: DO YOU HAVE THOUGHTS OF HURTING YOURSELF OR SOMEONE ELSE? NO . ARE YOU ABUSED, NEGLECTED, OR IN AN UNSAFE ENVIRONMENT? NO . ENDOCRINOLOGY: ARE YOU DIABETIC? YES . OTHER: DO YOU NEED ANY PRESCRIPTIONS? NO . IF YES, PLEASE LIST: ____ . ANY NEW PROBLEMS WITH YOUR MEDICATIONS? NO . WHEN DID YOU LAST EAT? ____ . WHEN DID YOU LAST DRINK? ____ . WHAT DID YOU LAST DRINK? ____ . NAME OF PERSON DRIVING YOU HOME? ____ . DO YOU HAVE ANY OTHER QUESTIONS OR CONCERNS NO . REVIEWED BY: PROVIDER: MARIELOS MATTSON . VITAL SIGNS WT 193.8 LBS, HT 74", BMI 24.88 INDEX, BP 128/66 MM HG, HR 66 /MIN, RR 16 /MIN, TEMP 97.7 F, OXYGEN SAT % 94%, NA INITIALS TL 1105. EXAMINATION GENERAL EXAMINATION: GENERAL APPEARANCE:POWER CHAIR USED FOR MOBILITY. PSYCHALERT , ORIENTED X 3 , APPROPRIATE MOOD AND AFFECT . HEENT:HARD OF HEARING. LUNGS:CLEAR TO AUSCULTATION BILATERALLY. HEART:HEART RATE REGULAR, 2/6 MURMUR WITH RADIATION TO BILATERAL CAROTIDS. MUSCULOSKELETAL:PALPATION: POSITIVE FOR PAIN OVER L/S SPINE. POSITIVE FOR PAIN OVER L/S PARSPINALS LEFT SIDE WORSE THAN RIGHT. AFO SPLINT TO BOTH LOWER EXTREMITIES. LEFT UPPER EXTREMITY ATRROPHY. . 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 CONTINUE CURRENT MEDS, FALLS CARE PLAN: 1. RECOMMEND REMOVING ALL THROW RUGS. 2. RECOMMEND NIGHT LIGHTS 3. RECOMMEND WEARING RUBBER SOLED SHOES AND TO NOT GO BAREFOOT. 4.. ADVISED TO CHANGE POSITION SLOWLY FROM SUPINE TO STANDING TO AVOID DIZZINESS. 5. ADVISED TO USE ASSISTIVE DEVICE SUCH WALKER OR POWER CHAIR. PROCEDURE CODES FA211 ESTABILISHED PATIENT [facility] FACILITY CHARGE B5977 BP SCR PRFRM RCMDD DEFIND SCR INTVL G7630 PAIN ASSESS POS TOOL F/U PLAN DOC 3016F PT SCRND UNHLTHY [place] USE 1123F ACP DISCUSS/DSCN MKR DOCD 1036F TOBACCO NON-USER 0518F FALL PLAN OF CARE DOCD G8427 DOC MEDS VERIFIED W/PT OR RE G8420 BMI<30 AND >=22 CALC & DOCU 3288F FALL RISK ASSESSMENT DOCD DISPOSITION & COMMUNICATION FOLLOW UP 2 MONTHS ELECTRONICALLY SIGNED BY JESUS BARTON ON 10/25/2016 AT 03:26 PM EDT DISCLAIMER : THIS IS A VISIT SUMMARY EXTRACTED FROM THE [employer] CHART. IT IS NOT A COPY OF THE [employer] PROGRESS NOTE. MTDD
== END ==
LOC: M PAIN 11:00
PROVIDERS: ATTEND Nurse Practitioner Family
DX: G89.29 Other chronic pain (principal); M46.96 Unspecified inflammatory spondylopathy, lumbar region; M54.6 Pain in thoracic spine; E78.5 Hyperlipidemia, unspecified; M10.00 Idiopathic gout, unspecified site; I10 Essential (primary) hypertension; Z88.8 Allergy status to other drugs, medicaments and biological substances; Z79.01 Long term (current) use of anticoagulants; Z79.84 Long term (current) use of oral hypoglycemic drugs; Z79.891 Long term (current) use of opiate analgesic; Z79.899 Other long term (current) drug therapy

== ENCOUNTER → 2016-10-05 | Outpatient (CLI) | payer MEDICARE ==
--- NOTE | 2016-10-05 17:08 | REP ---
LUMBAR SPINE: REASON: Inflammatory spondylopathy. COMPARISON: 02/11/2009. Flexion and extension bending views were obtained There is universal L5-S1 disc space narrowing increased from the prior exam. There is more mild appearing posterior disc space narrowing at all other levels. Vertebral body height and alignment is within normal limits and unchanged. Flexion and bending views show no instability. Degenerative facet joint changes are seen, mildly to moderately at every level particularly L5-S1 increased from the prior exam. The pedicles are again seen to be intact bilaterally. There is no spondylolysis or spondylolisthesis. IMPRESSION: Chronic changes as described above. Signed by Babatunde Bagley DO 10/06/2016 10:20 A
== END ==
LOC: M RAD 12:15
PROVIDERS: ATTEND Nurse Practitioner Family
DX: M46.96 Unspecified inflammatory spondylopathy, lumbar region (principal); M51.37 Other intervertebral disc degeneration, lumbosacral region
CPT/HCPCS: 72114; G0463

== ENCOUNTER → 2016-10-12 | Outpatient (REF) | payer MEDICARE ==
[2016-10-12 11:22] LABS: ALBUMIN 3.1 GM/DL (3.2-5.2); ANION GAP 11 MEQ/L (8-16); BLOOD UREA NITROGEN 19 MG/DL (7-18); CALCIUM LEVEL 8.9 MG/DL (8.8-10.2); CARBON DIOXIDE LEVEL 29 MEQ/L (21-32); CHLORIDE LEVEL 95 MEQ/L (98-107); CREATININE FOR GFR 1.09 MG/DL (0.70-1.30); GLOMERULAR FILTRATION RATE > 60.0 (>35); GLUCOSE, FASTING 267 MG/DL (83-110); MAGNESIUM LEVEL 1.8 MG/DL (1.8-2.4); PHOSPHORUS LEVEL 3.2 MG/DL (2.5-4.9); POTASSIUM SERUM 3.7 MEQ/L (3.5-5.1); SODIUM LEVEL 135 MEQ/L (136-145)
== END ==
PROVIDERS: ATTEND Physician Assistant
DX: I50.32 Chronic diastolic (congestive) heart failure (principal); I48.0 Paroxysmal atrial fibrillation

== ENCOUNTER → 2016-12-03 | Outpatient (CLI) | payer MEDICARE ==
[~2016-12-03] MED LIST changes: +CALC1TAB74 PO; -CALC600T53 PO; -LEVO125T3 PO; +LEVO125T4 PO; +METF500T13 PO
--- NOTE | 2016-12-31 02:03 | ECWPNPC ---
PATIENT NAME: TY MARIE : 1935 GENDER: MALE VISIT DATE: 12/03/2016 DISCHARGE DATE: 12/03/16 1117 VISIT LOCKED DATE TIME: PHYSICIAN: MARIELOS CHAVEZ RESOURCE: MARIELOS CHAVEZ HISTORY OF PRESENT ILLNESS HISTORY OF PRESENT ILLNESS: PAIN THE PATIENT DESCRIBES THE PAIN... FALL RISK SCREENING: SCREENING :NO FALLS IN THE PAST YEAR TODAY'S VISIT: NOTES: RATES PAIN 12/06. STTES HAS BEEN HAVING MORE MUSCLE PAIN IN RIGHT SHOULDER REGION. STATES HAS BEEN WALKING DAILY AND IS USING BRACES OFR FOOT DROP. USES ICYHOT FOR MUSCLES WHICH HELPS. NOTES POOR NIGHTTIME SLEEP BUT IS DROWSY IN DAYTIME. . CURRENT MEDICATIONS TAKING NORCO 10-325 MG TABLET 1 TABLET NEEDED ORALLY EVERY 6 HRS PRN PAIN MDD=4 TAKING ALLOPURINOL 100 MG TABLET 1 TABLET ORALLY TWICE A DAY TAKING FUROSEMIDE 40 MG TABLET 1 TABLET ORALLY DAILY IN THE AM, NOTES: IN AM TAKING CALCIUM 600 MG TABLET 1TAB ORALLY BID TAKING LOVASTATIN 10 MG TABLET 1 TABLET WITH A MEAL ORALLY ONCE A DAY TAKING MULTIVITAMINS TABLET 1TAB ORALLY DAILY TAKING POTASSIUM CHLORIDE 10 MEQ CAPSULE EXTENDED RELEASE 2 CAPSULE ORALLY TWICE A DAY TAKING ELIQUIS 5MG TABLET 1TAB ORAL TWICE DAILY TAKING DIGOXIN 125 MCG TABLET 1 TABLET ORALLY ONCE A DAY TAKING FISH OIL 1000 MG CAPSULE 1 CAPSULE ORALLY BID TAKING LEVOTHYROXINE SODIUM 125 MCG TABLET 1 TABLET ON AN EMPTY STOMACH IN THE MORNING ORALLY ONCE A DAY TAKING MULTAQ 400 MG TABLET 1 TABLET WITH MEALS ORALLY TWICE A DAY TAKING POLYETHYLENE GLYCOL POWDER 17MG Q OTHER DAY TAKING OMEPRAZOLE 20MG 20MG TABLET 1CAP ORAL DAILY TAKING COLACE 200 CAPSULE 1 CAPSULE NEEDED ORALLY TWICE DAILY TAKING NITROSTAT 0.4 MG TABLET SUBLINGUAL SUBLINGUAL DIRECTED TAKING JANUVIA 50 MG TABLET 1 TAB ORALLY ONCE A DAY TAKING METFORMIN HCL 1000 MG TABLET 1 TABLET WITH MEALS ORALLY TWICE A DAY TAKING ACETAMINOPHEN 500 MG TABLET 1 TABLET NEEDED ORALLY EVERY 6 HRS PRN PAIN OR FEVER MDD=4 TAKE WITH TRAMADOL TAKING DOCUSATE SODIUM 100 MG CAPSULE 1 CAPSULE ORALLY BID TAKING MORPHINE SULFATE ER 15 MG TABLET EXTENDED RELEASE 1 TABLET ORALLY TAKE 1 TAB TWICE A DAY MDD=2 *RESIDENT MAY REFUSE AM DOSE* TAKING TRULICITY 0.75 MG/0.5ML SOLUTION PEN-INJECTOR 0.5 ML SUBCUTANEOUS TAKING FERROUS GLUCONATE 324 (38 FE) MG TABLET ORALLY TAKING MELATONIN 10 MG TABLET 1 TAB ORALLY ONCE DAILY NOT-TAKING HYDROCODONE-ACETAMINOPHEN 10-325 MG TABLET 1 TAB ORALLY EVERY 4- 6 HRSMDD4 NOT-TAKING NORCO 10-325 MG TABLET 1 TABLET NEEDED ORALLY EVERY 6 HRS NOT-TAKING LASIX 20 MG TABLET 1 TABLET ORALLY ONCE A DAY IN THE AFTERNOON, NOTES: IN AFTERNOON NOT-TAKING MECLIZINE HCL 25 MG TABLET CHEWABLE 1 TABLET ORALLY THREE TIMES A DAY PRN NOT-TAKING ZOLPIDEM TARTRATE 12.5 MG TABLET EXTENDED RELEASE 2 TABLET AT BEDTIME NEEDED ORALLY ONCE A DAY NOT-TAKING CHELSEA ALLERGY 180 MG TABLET 1 TABLET ORALLY ONCE A DAY NOT-TAKING TAMSULOSIN HCL 0.4 MG CAPSULE 1 CAPSULE 30 MINUTES AFTER THE SAME MEAL EACH DAY ORALLY ONCE A DAY NOT-TAKING SPIRONOLACTONE 25 MG TABLET 1 TABLET ORALLY ONCE A DAY MEDICATION LIST REVIEWED AND RECONCILED WITH THE PATIENT PAST MEDICAL HISTORY BPH HYPERLIPIDEMIA DVT GOUT KIDNEY STONES PNEUMONIA HYPERTENSION CHF ? TB ALLERGIES INDOCIN: HALLUCINATION: SIDE EFFECTS REVIEW OF SYSTEMS REVIEWED BY: PROVIDER: MARIELOS MATTSON . CONSTITUTIONAL: ANY CHANGE IN YOUR MEDICAL CONDITION? NO . CHILLS NO . FEVER NO . INFECTION: DO YOU HAVE NEW INFECTIONS? NO . DO YOU HAVE HISTORY OF MRSA? NO . MUSCULOSKELETAL: ANY NEW PATTERNS OF PAIN OR NUMBNESS? YES, RIGHT SHOULDER AND TWO KNUCKLES . GASTROENTEROLOGY: ANY NEW CHANGE IN BOWEL CONTROL? NO . GENITOURINARY: ANY NEW CHANGE IN BLADDER CONTROL? NO . IS THERE A CHANCE YOU COULD BE ? NO . HEMATOLOGY/LYMPH: DO YOU TAKE ANY BLOOD THINNERS? (FOR EXAMPLE- COUMADIN, PLAVIX, AGGRENOX, PLATEL, PRADAXA, OR XARELTO) ELEQUIS . WHEN WAS YOUR LAST DOSE? DATE: TIME: . NEUROLOGY: HAVE YOU FALLEN IN THE PAST 6 MONTHS? NO . ANY NEW EXTREMITY NUMBNESS OR WEAKNESS? NO . CARDIOLOGY: DO YOU HAVE A PACEMAKER OR DEFIBRILLATOR? NO . RESPIRATORY: HAVE YOU BEEN SICK IN THE PAST WEEK? NO . FEVER NO . FLU LIKE SYMPTOMS? NO . COUGH NO . INTEGUMENTARY: DO YOU HAVE ANY RASHES OR OPEN SORES? NO . ALLERGIC/IMMUNO: ARE YOU ALLERGIC TO SHELLFISH OR IV DYE? NO . ANY NEW ALLERGIES? NO . PSYCHIATRIC: DO YOU HAVE THOUGHTS OF HURTING YOURSELF OR SOMEONE ELSE? NO . ARE YOU ABUSED, NEGLECTED, OR IN AN UNSAFE ENVIRONMENT? NO . ENDOCRINOLOGY: ARE YOU DIABETIC? YES . OTHER: DO YOU NEED ANY PRESCRIPTIONS? UNSURE . IF YES, PLEASE LIST: ____ . ANY NEW PROBLEMS WITH YOUR MEDICATIONS? NO . WHEN DID YOU LAST EAT? ____ . WHEN DID YOU LAST DRINK? ____ . WHAT DID YOU LAST DRINK? ____ . NAME OF PERSON DRIVING YOU HOME? ____ . DO YOU HAVE ANY OTHER QUESTIONS OR CONCERNS NO . VITAL SIGNS WT 188.3 LBS, HT 74", BMI 24.17 INDEX, BP 116/65 MM HG, HR 82 /MIN, RR 18 /MIN, TEMP 98.2 F, OXYGEN SAT % 95%, NA INITIALS SC 10:25, REVIEWED BY: NL. EXAMINATION GENERAL EXAMINATION: PSYCHALERT , ORIENTED X 3 , APPROPRIATE MOOD AND AFFECT , HARD OF HEARING - HEARING AIDS IN PLACE. LUNGS:CLEAR TO AUSCULTATION BILATERALLY. HEART:2/6 MURMUR, HEART RATE IRREGULAR. MUSCULOSKELETAL:TRIGGER POINTS AND TIGHT FIBROUS BANDS OVER RIGHT SHOULDER. TENDER WITH PALPATION OVER LUMBOSACRAL AXIS. POWER CHARIR USED FOR MOBILITY. AFO SPINTS IN PLACE FOR FOOT DROP. 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 CONTINUE WALKING ABLE. CONTINUE CURRENT MEDS. PROCEDURE CODES FA211 ESTABILISHED PATIENT [facility] FACILITY CHARGE G8730 PAIN ASSESS POS TOOL F/U PLAN DOC G8427 DOC MEDS VERIFIED W/PT OR RE DISPOSITION & COMMUNICATION FOLLOW UP 3 MONTHS (REASON: BACK PAIN) ELECTRONICALLY SIGNED BY JESUS BARTON ON 12/30/2016 AT 08:12 AM EDT DISCLAIMER : THIS IS A VISIT SUMMARY EXTRACTED FROM THE [employer] CHART. IT IS NOT A COPY OF THE [employer] PROGRESS NOTE. HERNANDO
== END ==
LOC: M PAIN 10:00
PROVIDERS: ATTEND Nurse Practitioner Family
DX: M46.96 Unspecified inflammatory spondylopathy, lumbar region (principal); M54.6 Pain in thoracic spine; G89.29 Other chronic pain; E11.9 Type 2 diabetes mellitus without complications; E03.9 Hypothyroidism, unspecified; I50.9 Heart failure, unspecified; E78.5 Hyperlipidemia, unspecified; R76.11 Nonspecific reaction to tuberculin skin test without active tuberculosis; Z79.899 Other long term (current) drug therapy; Z79.84 Long term (current) use of oral hypoglycemic drugs; Z88.8 Allergy status to other drugs, medicaments and biological substances

== ENCOUNTER 2016-12-23 22:29 | Emergency (ER) | payer MEDICARE ==
[~2016-12-23] VITALS: Ht 188 cm; Wt 85.0 kg
[2016-12-24 00:18] VITALS: BP 130/62
== END 2016-12-24 00:21 | disposition home or self-care (01) ==
LOC: EDBD 22:29 → M ED 22:29
DX: S91.111A Laceration without foreign body of right great toe without damage to nail, initial encounter (principal); E11.9 Type 2 diabetes mellitus without complications; I10 Essential (primary) hypertension; J44.9 Chronic obstructive pulmonary disease, unspecified; I50.9 Heart failure, unspecified; E03.9 Hypothyroidism, unspecified; Z79.01 Long term (current) use of anticoagulants; W23.1XXA Caught, crushed, jammed, or pinched between stationary objects, initial encounter; Y92.129 Unspecified place in nursing home as the place of occurrence of the external cause; Y93.01 Activity, walking, marching and hiking; Y99.9 Unspecified external cause status

== ENCOUNTER 2017-01-19 11:39 | Emergency (ER) | payer MEDICARE ==
[~2017-01-19] VITALS: Ht 188 cm; Wt 83.3 kg
--- NOTE | 2017-01-19 15:18 | REP ---
PORTABLE CHEST: AP portable view of the chest is performed and compared to a prior study of 04/28/2016. There is interstitial fibrosis which appears stable. There is no acute infiltrate. The cardiomediastinal silhouette is unchanged. IMPRESSION: Stable chronic changes without evidence of acute infiltrate. Signed by Mikhail Pugh MD 01/19/2017 05:25 P
[2017-01-19 15:36] LABS: BASO # 0.1 K/mm3 (0.0-0.2); BASO % 0.6 % (0.0-1.0); EOS # 0.4 K/mm3 (0.0-0.50); EOS % 2.7 % (0.0-3.0); LARGE UNSTAINED CELL # 0.1 K/mm3 (0.0-0.4); LYMPH # 2.7 K/mm3 (1.5-4.5); LYMPH % 19.5 % (24.0-44.0); MEAN CORPUSCULAR HEMOGLOBIN 32.3 pg (27.0-33.0); MEAN CORPUSCULAR HGB CONC 34.3 g/dl (32.0-36.5); MONO # 0.8 K/mm3 (0.0-0.8); NEUTROPHILS # 9.1 K/mm3 (1.8-7.7); NEUTROPHILS % 70.3 % (36.0-66.0); PLATELET COUNT, AUTOMATED 184 k/mm3 (150-450); RED CELL DISTRIBUTION WIDTH 15.2 % (11.5-14.5)
[2017-01-19 15:41] LABS: INR 1.29
[2017-01-19] MEDS ORDERED: MORPHINE 2 MG/ML 1ML SYRINGE IV ONE (15:45)
[2017-01-19] MEDS ORDERED: ONDANSETRON 4MG/2ML VIAL (J2405) IV ONE (15:45)
[2017-01-19 15:47] LABS: ANION GAP 10 MEQ/L (8-16); BLOOD UREA NITROGEN 17 MG/DL (7-18); CALCIUM LEVEL 9.2 MG/DL (8.8-10.2); CARBON DIOXIDE LEVEL 30 MEQ/L (21-32); CHLORIDE LEVEL 99 MEQ/L (98-107); CREATININE FOR GFR 1.07 MG/DL (0.70-1.30); GLOMERULAR FILTRATION RATE > 60.0 (>35); GLUCOSE, FASTING 112 MG/DL (83-110); POTASSIUM SERUM 3.8 MEQ/L (3.5-5.1); SODIUM LEVEL 139 MEQ/L (136-145)
[2017-01-19] MEDS ORDERED: ISOVUE-370 76% 100ML VIAL (Q9967) As Ordered ONE (16:02)
--- NOTE | 2017-01-19 18:39 | ECGEPIP ---
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
--- NOTE | 2017-01-19 19:16 | REP ---
CT abdomen pelvis with IV but without oral contrast: History: Abdominal pain. History of abdominal aortic aneurysm. Comparison CT study 06/11/2013. CT contrast dose: [address] findings: Preliminary digital nurse coordinator radiograph is unremarkable. There is advanced COPD with some interstitial fibrosis in the lung bases bilaterally. The liver and the spleen are normal in size homogeneous in texture. Numerous tiny gallstones are seen in the dependent portion the gallbladder. No adrenal lesion is seen. The kidneys enhance symmetrically. There are multiple small renal cysts bilaterally. There is an intrarenal calculus in each kidney. The largest of these is in the lower pole on the right. This calculus measures 4 mm in greatest diameter. There is a small cyst in the tail of the pancreas measuring 1.6 cm in greatest diameter. This is unchanged from the comparison CT study 06/29/2013. There is an infrarenal abdominal aortic aneurysm again seen measuring 3.1 cm in anteroposterior dimension. This is unchanged from prior study and there is no evidence to suggest rupture or dissection. Urinary bladder is unremarkable. No bony destructive lesion. Impression: 1. 3.1 cm stable infrarenal abdominal aortic aneurysm. No evidence of rupture. 2. Cholelithiasis. 3. There is an intrarenal calculus in each kidney, one on each side. The largest is a 4 mm calculus in the lower pole right kidney. No hydronephrosis. 4. 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 Signed by Barak Perkins MD 01/20/2017 08:53 A
[2017-01-19 23:18] VITALS: BP 135/63
--- NOTE | 2017-01-24 16:38 | REPUSA ---
CLINICAL HISTORY: Back pain. TECHNIQUE: Fast spin echo T2 and spin echo T1 sequences were obtained in axial and sagittal planes. FINDINGS: The visualized osseous elements are intact and in normal alignment with no evidence of fracture or di slocation. The marrow signals are within normal limits. The visualized posterior elements are normal and the thoracic curvature is well maintained. The thoracic cord is of uniform signal intensity witho ut evidence of focal expansion. There is mild multilevel spondylosis. This is demonstrated by disc dehydration and desiccation. Smal l Schmorl's nodes are present at several midthoracic levels. At T1-T2 level, no evidence of significant disk herniation or bulge. Canal and foramina are patent. At T2-T3 level, no evidence of significant disk herniation or bulge. Canal and foramina are patent. At T3-T4 level, no evidence of significant disk herniation or bulge. Canal and foramina are patent. At T4-T5 level, no evidence of significant disk herniation or bulge. Canal and foramina are patent. At T5-T6 level, no evidence of significant disk herniation or bulge. Canal and foramina are patent. At T6-T7 level, no evidence of significant disk herniation or bulge. Canal and foramina are patent. At T7-T8 level, there is evidence of a small central disc protrusion which is in contract with the ve ntral cord. There is no significant mass-effect. Canal and foramina are patent. At T8-T9 level, no evidence of significant disk herniation or bulge. Canal and foramina are patent. At T9-T10 level, no evidence of significant disk herniation or bulge. Canal and foramina are patent. At T10-T11 level, no evidence of significant disk herniation or bulge. Canal and foramina are patent. At T11-T12 level, no evidence of significant disk herniation or bulge. Canal and foramina are patent. Diffuse atherosclerotic changes involving the visualized aorta with mural thrombus. IMPRESSION: 1. Mild multilevel spondylosis. 2. At T7-8 level, small central disc protrusion which is in contract with the ventral cord. There is no significant mass-effect. Canal and foramina are patent. 3. No evidence for central canal or foraminal stenosis at any level. Thank you for your kind referral of this patient.
--- NOTE | 2017-01-24 16:38 | REPUSA ---
CLINICAL HISTORY: Increasing back pain. TECHNIQUE: MRI of the lumbar spine was performed utilizing multiple sequences in axial and sagittal planes without IV contrast material. COMMENTS: The visualized osseous elements are intact with no evidence of fracture or spondylolisthesis. The ma rrow signals are within normal limits. The conus medullaris and cauda equina are within normal limit s. There is straightening of the lumbar lordosis compatible with muscle spasm. There are atheroscleroti c changes seen throughout the aorta. The distal abdominal aorta at the bifurcation is aneurysmal maximo suring up to 2.9 cm in cross section. There are multiple bilateral renal cysts present measuring up to 3 cm. Evaluation of individual levels present the following: L5-S1, diffuse bulge is seen measuring up to 3 mm. Both foramina are narrowed. The canal is patent. Bilateral hypertrophic facet disease is seen. L4-L5, 3 mm bulging is seen. Both foramina are narrowed. The canal is patent. Bilateral hypertroph ic facet disease is seen. L3-L4, there is no disc herniation or bulge. The canal and foramina are patent. L2-L3, there is no disc herniation or bulge. The canal and foramina are patent. L1-L2, there is no disc herniation or bulge. The canal and foramina are patent. IMPRESSION: 1. Straightening of the lumbar lordosis compatible with muscle spasm. 2. Atherosclerotic changes seen throughout the aorta. The distal abdominal aorta at the bifurcation is aneurysmal measuring up to 2.9 cm in cross section. 3. Multiple bilateral renal cysts present measuring up to 3 cm. 4. L5-S1 shows diffuse bulge measuring up to 3 mm. Both foramina are narrowed. The canal is patent . Bilateral hypertrophic facet disease is seen. 5. L4-L5 shows 3 mm bulging. Both foramina are narrowed. The canal is patent. Bilateral hypertrop hic facet disease is seen.
== END 2017-01-20 00:29 | disposition home or self-care (01) ==
LOC: M ED 11:39
DX: M51.26 Other intervertebral disc displacement, lumbar region (principal); E11.9 Type 2 diabetes mellitus without complications; E03.9 Hypothyroidism, unspecified; E78.4 Other hyperlipidemia; Z79.01 Long term (current) use of anticoagulants
CPT/HCPCS: 36415; 71010; 72146; 72148; 74177; 80048; 82550; 82553; 84484; 85025; 85610; 85730; 86850; 86900; 86901; 93005; 93041; 96374; 96375; 99284; J2405; Q9967

== ENCOUNTER → 2017-01-19 | Outpatient (CLI) | payer MEDICARE ==
--- NOTE | 2017-01-30 23:20 | ECWPNPC ---
PATIENT NAME: TY MARIE : 1935 GENDER: MALE VISIT DATE: 01/19/2017 DISCHARGE DATE: 01/19/17 1133 VISIT LOCKED DATE TIME: PHYSICIAN: MARIELOS CHAVEZ RESOURCE: MARIELOS CHAVEZ REASON FOR APPOINTMENT 1. INCREASED LUMBAR PAIN HISTORY OF PRESENT ILLNESS HISTORY OF PRESENT ILLNESS: PAIN THE PATIENT DESCRIBES THE PAIN... FALL RISK SCREENING: SCREENING :NO FALLS IN THE PAST YEAR TODAY'S VISIT: NOTES: RATES PAIN TODAY 9/10. DESCRIBES PAIN CONSTANT AND SHARP AND TENDER, HAS HAD INCREASED PAIN IN LOW BACK WHICH ESCALATED 3 DAYS AGO. RECALLS NO FALL OR OTHER AGGRAVATING FACTOR. NO RADIATION OF PAIN TO LEGS. NO BOWEL CHANGES - HAS NO ISSUES WITH BOWEL OR BLADDER. NO HEMATURIA. STATES HE IS NOT ABLE TO FUNCTION WITH THIS LEVEL OF PAIN. CURRENT MEDICATIONS TAKING ALLOPURINOL 100 MG TABLET 1 TABLET ORALLY TWICE A DAY TAKING FUROSEMIDE 40 MG TABLET 1 TABLET ORALLY DAILY IN THE AM, NOTES: IN AM TAKING CALCIUM 600 MG TABLET 1TAB ORALLY BID TAKING LOVASTATIN 10 MG TABLET 1 TABLET WITH A MEAL ORALLY ONCE A DAY TAKING MULTIVITAMINS TABLET 1TAB ORALLY DAILY TAKING POTASSIUM CHLORIDE 10 MEQ CAPSULE EXTENDED RELEASE 2 CAPSULE ORALLY TWICE A DAY TAKING ELIQUIS 5MG TABLET 1TAB ORAL TWICE DAILY TAKING DIGOXIN 125 MCG TABLET 1 TABLET ORALLY ONCE A DAY TAKING FISH OIL 1000 MG CAPSULE 1 CAPSULE ORALLY BID TAKING LEVOTHYROXINE SODIUM 125 MCG TABLET 1 TABLET ON AN EMPTY STOMACH IN THE MORNING ORALLY ONCE A DAY TAKING MULTAQ 400 MG TABLET 1 TABLET WITH MEALS ORALLY TWICE A DAY TAKING POLYETHYLENE GLYCOL POWDER 17MG Q OTHER DAY TAKING OMEPRAZOLE 20MG 20MG TABLET 1CAP ORAL DAILY TAKING COLACE 200 CAPSULE 1 CAPSULE NEEDED ORALLY TWICE DAILY TAKING NITROSTAT 0.4 MG TABLET SUBLINGUAL SUBLINGUAL DIRECTED TAKING JANUVIA 50 MG TABLET 1 TAB ORALLY ONCE A DAY TAKING METFORMIN HCL 1000 MG TABLET 1 TABLET WITH MEALS ORALLY TWICE A DAY TAKING ACETAMINOPHEN 500 MG TABLET 1 TABLET NEEDED ORALLY EVERY 6 HRS PRN PAIN OR FEVER MDD=4 TAKE WITH TRAMADOL TAKING DOCUSATE SODIUM 100 MG CAPSULE 1 CAPSULE ORALLY BID TAKING TRULICITY 0.75 MG/0.5ML SOLUTION PEN-INJECTOR 0.5 ML SUBCUTANEOUS TAKING FERROUS GLUCONATE 324 (38 FE) MG TABLET ORALLY TAKING MELATONIN 10 MG TABLET 1 TAB ORALLY ONCE DAILY TAKING NORCO 10-325 MG TABLET 1 TABLET NEEDED ORALLY EVERY 6 HRS PRN PAIN MDD=4 TAKING MORPHINE SULFATE ER 15 MG TABLET EXTENDED RELEASE 1 TABLET ORALLY TAKE 1 TAB TWICE A DAY MDD=2 *RESIDENT MAY REFUSE AM DOSE* NOT-TAKING HYDROCODONE-ACETAMINOPHEN 10-325 MG TABLET 1 TAB ORALLY EVERY 4- 6 HRSMDD4 NOT-TAKING NORCO 10-325 MG TABLET 1 TABLET NEEDED ORALLY EVERY 6 HRS NOT-TAKING LASIX 20 MG TABLET 1 TABLET ORALLY ONCE A DAY IN THE AFTERNOON, NOTES: IN AFTERNOON NOT-TAKING MECLIZINE HCL 25 MG TABLET CHEWABLE 1 TABLET ORALLY THREE TIMES A DAY PRN NOT-TAKING ZOLPIDEM TARTRATE 12.5 MG TABLET EXTENDED RELEASE 2 TABLET AT BEDTIME NEEDED ORALLY ONCE A DAY NOT-TAKING CHELSEA ALLERGY 180 MG TABLET 1 TABLET ORALLY ONCE A DAY NOT-TAKING TAMSULOSIN HCL 0.4 MG CAPSULE 1 CAPSULE 30 MINUTES AFTER THE SAME MEAL EACH DAY ORALLY ONCE A DAY NOT-TAKING SPIRONOLACTONE 25 MG TABLET 1 TABLET ORALLY ONCE A DAY MEDICATION LIST REVIEWED AND RECONCILED WITH THE PATIENT PAST MEDICAL HISTORY BPH HYPERLIPIDEMIA DVT GOUT KIDNEY STONES PNEUMONIA HYPERTENSION CHF ? TB COPD HTN AFIB REBEKAH DM TYPE 2 HYPOTHYROID ALLERGIES INDOCIN: HALLUCINATION: SIDE EFFECTS SURGICAL HISTORY TURP CATARACT CYSTOSCOPY SEVERAL LEFT ARM SURG AND TONSILLECTOMY DISTANT PAST LITHOTRIPSY HOSPITALIZATION/MAJOR DIAGNOSTIC PROCEDURE SURGERY RELATED REVIEW OF SYSTEMS REVIEWED BY: PROVIDER: MARIELOS MATTSON . CONSTITUTIONAL: ANY CHANGE IN YOUR MEDICAL CONDITION? NO . CHILLS NO . FEVER NO . INFECTION: DO YOU HAVE NEW INFECTIONS? NO . DO YOU HAVE HISTORY OF MRSA? NO . MUSCULOSKELETAL: ANY NEW PATTERNS OF PAIN OR NUMBNESS? PAIN IS SO MUCH WORSE . GASTROENTEROLOGY: ANY NEW CHANGE IN BOWEL CONTROL? NO . GENITOURINARY: ANY NEW CHANGE IN BLADDER CONTROL? NO . IS THERE A CHANCE YOU COULD BE ? NO . HEMATOLOGY/LYMPH: DO YOU TAKE ANY BLOOD THINNERS? (FOR EXAMPLE- COUMADIN, PLAVIX, AGGRENOX, PLATEL, PRADAXA, OR XARELTO) NO . WHEN WAS YOUR LAST DOSE? DATE: TIME: . NEUROLOGY: HAVE YOU FALLEN IN THE PAST 6 MONTHS? NO . ANY NEW EXTREMITY NUMBNESS OR WEAKNESS? NO . CARDIOLOGY: DO YOU HAVE A PACEMAKER OR DEFIBRILLATOR? NO . RESPIRATORY: HAVE YOU BEEN SICK IN THE PAST WEEK? NO . FEVER NO . FLU LIKE SYMPTOMS? NO . COUGH NO . INTEGUMENTARY: DO YOU HAVE ANY RASHES OR OPEN SORES? NO . ALLERGIC/IMMUNO: ARE YOU ALLERGIC TO SHELLFISH OR IV DYE? NO . ANY NEW ALLERGIES? NO . PSYCHIATRIC: DO YOU HAVE THOUGHTS OF HURTING YOURSELF OR SOMEONE ELSE? NO . ARE YOU ABUSED, NEGLECTED, OR IN AN UNSAFE ENVIRONMENT? NO . ENDOCRINOLOGY: ARE YOU DIABETIC? YES . OTHER: DO YOU NEED ANY PRESCRIPTIONS? UNSURE . IF YES, PLEASE LIST: ____ . ANY NEW PROBLEMS WITH YOUR MEDICATIONS? NO . WHEN DID YOU LAST EAT? ____ . WHEN DID YOU LAST DRINK? ____ . WHAT DID YOU LAST DRINK? ____ . NAME OF PERSON DRIVING YOU HOME? ____ . DO YOU HAVE ANY OTHER QUESTIONS OR CONCERNS NO . VITAL SIGNS WT 183.4 LBS, HT 74", BMI 23.54 INDEX, BP 127/69 MM HG, HR 71 /MIN, RR 18 /MIN, TEMP 97.4 F, OXYGEN SAT % 93%, NA INITIALS SC 10:47. EXAMINATION GENERAL EXAMINATION: PSYCHCOLOR PALE, APPEARS VERY UNCOMFORTABLE. , ALERT , ORIENTED X 3 , APPROPRIATE MOOD AND AFFECT . HEENT:HARD OF HEARING - HEARING AIDES IN PLACE. LUNGS:AUDIBLE WEHEEZING BUT BREATH SOUNDS ARE CLEAR. HEART:HEART RATE REGULAR, INTERMITTANT IRREGULAR BEATS. MUSCULOSKELETAL:EXQUISITE TENDERNESS OVER LOW THORACIC THROUGH LUMBAR PARAVERTEBRAL MUSCULATURE. MUSLES OVER FLANK ARE STIFF AND TENSE. CANNOT TOLERATE EVEL LIGHT TOUCH IN THE AREA, BOTH SIDES OF THE BACK. DIFFICULTY WITH MOVING AND CHANGING POSITIONS. 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 CHRONIC PAIN MDD=3, 30 DAY(S), 90, REFILLS 0 NOTES: INCREASE MORPHINE 15 MG ER TO Q 8 HOURS. WILL SEND TO EMERGENCY ROOM FOR FURTHER EVALUATION OF PAIN AND BACK TIGHTNESS. CLINICAL NOTES: ISTOP REGISTRY REVIEWED AND DEMNOSTRATES COMPLLIANCE. BRINGS IN MEDICATIONS WHICH IS APPROPRIATE FOR WHAT WAS DISPENSED. RECENT URINE TOXICOLOGY REVIEWED. NO UNAUTHORIZED MEDICATIONS. NO ILLICIT SUBSTANCES AND PRESCRIBED MEDICATIONS WERE PRESENT. PROCEDURE CODES FA211 ESTABILISHED PATIENT [facility] FACILITY CHARGE G8730 PAIN ASSESS POS TOOL F/U PLAN DOC G8427 DOC MEDS VERIFIED W/PT OR RE DISPOSITION & COMMUNICATION FOLLOW UP 1 MONTH (REASON: INCREASED BACK PAIN) ELECTRONICALLY SIGNED BY JESUS BARTON ON 01/30/2017 AT 03:58 PM EDT DISCLAIMER : THIS IS A VISIT SUMMARY EXTRACTED FROM THE [employer] CHART. IT IS NOT A COPY OF THE [employer] PROGRESS NOTE. HERNANDO
== END ==
LOC: M PAIN 10:15
PROVIDERS: ATTEND Nurse Practitioner Family
DX: M46.96 Unspecified inflammatory spondylopathy, lumbar region (principal); M54.6 Pain in thoracic spine; G89.29 Other chronic pain; E03.9 Hypothyroidism, unspecified; E11.9 Type 2 diabetes mellitus without complications; Z79.84 Long term (current) use of oral hypoglycemic drugs; Z79.4 Long term (current) use of insulin; Z79.891 Long term (current) use of opiate analgesic; Z79.899 Other long term (current) drug therapy; Z88.8 Allergy status to other drugs, medicaments and biological substances; I50.9 Heart failure, unspecified; Z86.72 Personal history of thrombophlebitis; Z95.9 Presence of cardiac and vascular implant and graft, unspecified
CPT/HCPCS: 36415; 71010; 72146; 72148; 74177; 80048; 82550; 82553; 84484; 85025; 85610; 85730; 86850; 86900; 86901; 93005; 93041; 99284; G0463; J2405; Q9967

== ENCOUNTER → 2017-02-11 | Outpatient (REF) | payer MEDICARE ==
[2017-02-11 13:02] LABS: PERCENT SATURATION 12.3 % (19.7-50.0)
== END ==
LOC: M LAB REF 11:59
PROVIDERS: ATTEND Internal Medicine
DX: D50.9 Iron deficiency anemia, unspecified (principal)

== ENCOUNTER → 2017-02-15 | Outpatient (REF) | payer MEDICARE ==
[2017-02-15 10:48] LABS: ALBUMIN 3.5 GM/DL (3.2-5.2); ANION GAP 12 MEQ/L (8-16); BLOOD UREA NITROGEN 19 MG/DL (7-18); CALCIUM LEVEL 9.5 MG/DL (8.8-10.2); CARBON DIOXIDE LEVEL 30 MEQ/L (21-32); CHLORIDE LEVEL 98 MEQ/L (98-107); CHOLESTEROL LEVEL 133 MG/DL (<200); CREATININE FOR GFR 0.94 MG/DL (0.70-1.30); GLOMERULAR FILTRATION RATE > 60.0 (>35); GLUCOSE, FASTING 144 MG/DL (83-110); PHOSPHORUS LEVEL 3.1 MG/DL (2.5-4.9); POTASSIUM SERUM 3.4 MEQ/L (3.5-5.1); SODIUM LEVEL 140 MEQ/L (136-145); TRIGLYCERIDES LEVEL 163 MG/DL (<150)
== END ==
PROVIDERS: ATTEND Physician Assistant
DX: I50.32 Chronic diastolic (congestive) heart failure (principal); I25.10 Atherosclerotic heart disease of native coronary artery without angina pectoris; E78.00 Pure hypercholesterolemia, unspecified

== ENCOUNTER → 2017-02-16 | Outpatient (CLI) | payer MEDICARE ==
--- NOTE | 2017-03-16 02:07 | ECWPNPC ---
PATIENT NAME: TY MARIE : 1935 GENDER: MALE VISIT DATE: 02/16/2017 DISCHARGE DATE: 02/16/17 1018 VISIT LOCKED DATE TIME: PHYSICIAN: MARIELOS CHAVEZ RESOURCE: MARIELOS CHAVEZ REASON FOR APPOINTMENT 1. INCREASED BACK PAIN HISTORY OF PRESENT ILLNESS HISTORY OF PRESENT ILLNESS: PAIN THE PATIENT DESCRIBES THE PAIN... FALL RISK SCREENING: SCREENING :NO FALLS IN THE PAST YEAR TODAY'S VISIT: NOTES: RATES PAIN LEVEL TODAY 4-5/10. MUCH IMPROVED SINCE LAST VISIT. AT THAT VISIT WAS IN EXTREME PAIN AND WAS SENT TO ER FOR FURTHER EVAL. NO ACUTE PROCESSES FOUND. PAIN MEDS INCREASED AND REPORTS HE IS DOING BETTER. NO RECENT FALLS. STATES HAS BEEN ABLE TO WALK TO THE DINING ROOM. RECENTLY IS NOTING INCREASED PAIN OVER THE TOP TO THE RIGHT FOOT. . CURRENT MEDICATIONS TAKING ALLOPURINOL 100 MG TABLET 1 TABLET ORALLY TWICE A DAY TAKING FUROSEMIDE 40 MG TABLET 1 TABLET ORALLY DAILY IN THE AM, NOTES: IN AM TAKING CALCIUM 600 MG TABLET 1TAB ORALLY BID TAKING LOVASTATIN 10 MG TABLET 1 TABLET WITH A MEAL ORALLY ONCE A DAY TAKING MULTIVITAMINS TABLET 1TAB ORALLY DAILY TAKING POTASSIUM CHLORIDE 10 MEQ CAPSULE EXTENDED RELEASE 2 CAPSULE ORALLY TWICE A DAY TAKING ELIQUIS 5MG TABLET 1TAB ORAL TWICE DAILY TAKING DIGOXIN 125 MCG TABLET 1 TABLET ORALLY ONCE A DAY TAKING FISH OIL 1000 MG CAPSULE 1 CAPSULE ORALLY BID TAKING LEVOTHYROXINE SODIUM 125 MCG TABLET 1 TABLET ON AN EMPTY STOMACH IN THE MORNING ORALLY ONCE A DAY TAKING MULTAQ 400 MG TABLET 1 TABLET WITH MEALS ORALLY TWICE A DAY TAKING POLYETHYLENE GLYCOL POWDER 17MG Q OTHER DAY TAKING OMEPRAZOLE 20MG 20MG TABLET 1CAP ORAL DAILY TAKING COLACE 200 CAPSULE 1 CAPSULE NEEDED ORALLY TWICE DAILY TAKING NITROSTAT 0.4 MG TABLET SUBLINGUAL SUBLINGUAL DIRECTED TAKING JANUVIA 50 MG TABLET 1 TAB ORALLY ONCE A DAY TAKING METFORMIN HCL 1000 MG TABLET 1 TABLET WITH MEALS ORALLY TWICE A DAY TAKING ACETAMINOPHEN 500 MG TABLET 1 TABLET NEEDED ORALLY EVERY 6 HRS PRN PAIN OR FEVER MDD=4 TAKE WITH TRAMADOL TAKING DOCUSATE SODIUM 100 MG CAPSULE 1 CAPSULE ORALLY BID TAKING TRULICITY 0.75 MG/0.5ML SOLUTION PEN-INJECTOR 0.5 ML SUBCUTANEOUS TAKING FERROUS GLUCONATE 324 (38 FE) MG TABLET ORALLY TAKING MELATONIN 10 MG TABLET 1 TAB ORALLY ONCE DAILY TAKING MORPHINE SULFATE ER 15 MG TABLET EXTENDED RELEASE 1 TABLET ORALLY TAKE 1 TAB AT 06 AM, ONE TAB AT 2 PM AND 1 TAB AT HS. CHRONIC PAIN MDD=3 TAKING NORCO 10-325 MG TABLET 1 TABLET NEEDED ORALLY EVERY 6 HRS PRN PAIN MDD=4 TAKING KETOCONAZOLE 2 % CREAM 1 APPLICATION TO AFFECTED AREA EXTERNALLY ONCE A DAY NOT-TAKING HYDROCODONE-ACETAMINOPHEN 10-325 MG TABLET 1 TAB ORALLY EVERY 4- 6 HRSMDD4 NOT-TAKING NORCO 10-325 MG TABLET 1 TABLET NEEDED ORALLY EVERY 6 HRS NOT-TAKING LASIX 20 MG TABLET 1 TABLET ORALLY ONCE A DAY IN THE AFTERNOON, NOTES: IN AFTERNOON NOT-TAKING MECLIZINE HCL 25 MG TABLET CHEWABLE 1 TABLET ORALLY THREE TIMES A DAY PRN NOT-TAKING ZOLPIDEM TARTRATE 12.5 MG TABLET EXTENDED RELEASE 2 TABLET AT BEDTIME NEEDED ORALLY ONCE A DAY NOT-TAKING CHELSEA ALLERGY 180 MG TABLET 1 TABLET ORALLY ONCE A DAY NOT-TAKING TAMSULOSIN HCL 0.4 MG CAPSULE 1 CAPSULE 30 MINUTES AFTER THE SAME MEAL EACH DAY ORALLY ONCE A DAY NOT-TAKING SPIRONOLACTONE 25 MG TABLET 1 TABLET ORALLY ONCE A DAY MEDICATION LIST REVIEWED AND RECONCILED WITH THE PATIENT PAST MEDICAL HISTORY BPH HYPERLIPIDEMIA DVT GOUT KIDNEY STONES PNEUMONIA HYPERTENSION CHF ? TB COPD HTN AFIB REBEKAH DM TYPE 2 HYPOTHYROID ALLERGIES INDOCIN: HALLUCINATION: SIDE EFFECTS REVIEW OF SYSTEMS REVIEWED BY: PROVIDER: MARIELOS MATTSON . CONSTITUTIONAL: ANY CHANGE IN YOUR MEDICAL CONDITION? NO . CHILLS NO . FEVER NO . INFECTION: DO YOU HAVE NEW INFECTIONS? NO . DO YOU HAVE HISTORY OF MRSA? NO . MUSCULOSKELETAL: ANY NEW PATTERNS OF PAIN OR NUMBNESS? NO . GASTROENTEROLOGY: ANY NEW CHANGE IN BOWEL CONTROL? NO . GENITOURINARY: ANY NEW CHANGE IN BLADDER CONTROL? NO . IS THERE A CHANCE YOU COULD BE ? NO . HEMATOLOGY/LYMPH: DO YOU TAKE ANY BLOOD THINNERS? (FOR EXAMPLE- COUMADIN, PLAVIX, AGGRENOX, PLATEL, PRADAXA, OR XARELTO) YES . WHEN WAS YOUR LAST DOSE? DATE: TIME: . NEUROLOGY: HAVE YOU FALLEN IN THE PAST 6 MONTHS? NO . ANY NEW EXTREMITY NUMBNESS OR WEAKNESS? NO . CARDIOLOGY: DO YOU HAVE A PACEMAKER OR DEFIBRILLATOR? NO . RESPIRATORY: HAVE YOU BEEN SICK IN THE PAST WEEK? NO . FEVER NO . FLU LIKE SYMPTOMS? NO . COUGH NO . INTEGUMENTARY: DO YOU HAVE ANY RASHES OR OPEN SORES? NO . ALLERGIC/IMMUNO: ARE YOU ALLERGIC TO SHELLFISH OR IV DYE? NO . ANY NEW ALLERGIES? NO . PSYCHIATRIC: DO YOU HAVE THOUGHTS OF HURTING YOURSELF OR SOMEONE ELSE? NO . ARE YOU ABUSED, NEGLECTED, OR IN AN UNSAFE ENVIRONMENT? NO . ENDOCRINOLOGY: ARE YOU DIABETIC? YES . OTHER: DO YOU NEED ANY PRESCRIPTIONS? UNSURE . IF YES, PLEASE LIST: ____ . ANY NEW PROBLEMS WITH YOUR MEDICATIONS? NO . WHEN DID YOU LAST EAT? ____ . WHEN DID YOU LAST DRINK? ____ . WHAT DID YOU LAST DRINK? ____ . NAME OF PERSON DRIVING YOU HOME? ____ . DO YOU HAVE ANY OTHER QUESTIONS OR CONCERNS NO . VITAL SIGNS WT 185 LBS, HT 74", BMI 23.75 INDEX, BP 124/65 MM HG, HR 68 /MIN, RR 18 /MIN, TEMP 98.1 F, OXYGEN SAT % 93%, NA INITIALS AW 0954, REVIEWED BY: NL. EXAMINATION GENERAL EXAMINATION: PSYCH. , ALERT , ORIENTED X 3 , APPROPRIATE MOOD AND AFFECT , SMILING AND TALKATIVE. HEENT:HARD OF HEARING - HEARING AIDES IN PLACE. LUNGS:BREATH SOUNDS ARE CLEAR, NO WHEEZES, RALES OR RHONCHI. HEART:HEART RATE REGULAR, INTERMITTANT IRREGULAR BEATS. MUSCULOSKELETAL:MILD TENDERNESS OVER LOW THORACIC THROUGH LUMBAR PARAVERTEBRAL MUSCULATURE TODAY CAN FLEX, EXTEND AND RISE TO STANDING POSITION. 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 CHRONIC PAIN MDD=3, 30 DAY(S), 90, REFILLS 0 REFILL NORCO TABLET, 10-325 MG, 1 TABLET NEEDED, ORALLY, EVERY 6 HRS PRN PAIN MDD=4, 30 DAY(S), 120, REFILLS 0 NOTES: CONTINUE CURRENT MEDS. WALK EVERY DAY AND TOLERATED. CLINICAL NOTES: ISTOP REGISTRY REVIEWED AND DEMNOSTRATES COMPLLIANCE. (REFERENCE #[id number]) IS NOT ABLE TO BRING IN MEDICATIONS THESE ARE ALL CONTROLLED BY THE [facility] STAFF.RECENT TOXICOLOGY REVIEWED. NO UNAUTHORIZED MEDICATIONS. NO ILLICIT SUBSTANCES AND PRESCRIBED MEDICATIONS WERE PRESENT. PROCEDURE CODES FA211 ESTABILISHED PATIENT [facility] FACILITY CHARGE G8730 PAIN ASSESS POS TOOL F/U PLAN DOC G8427 DOC MEDS VERIFIED W/PT OR RE DISPOSITION & COMMUNICATION FOLLOW UP CANCEL OCT APPT - SCHED FOR 2 MONTHS (REASON: BACK PAIN) ELECTRONICALLY SIGNED BY JESUS BARTON ON 03/15/2017 AT 01:50 PM EDT DISCLAIMER : THIS IS A VISIT SUMMARY EXTRACTED FROM THE [employer] CHART. IT IS NOT A COPY OF THE [employer] PROGRESS NOTE. MTDD
== END ==
LOC: M PAIN 10:00
PROVIDERS: ATTEND Nurse Practitioner Family
DX: M46.96 Unspecified inflammatory spondylopathy, lumbar region (principal); M54.6 Pain in thoracic spine; G89.29 Other chronic pain; E11.9 Type 2 diabetes mellitus without complications; E03.9 Hypothyroidism, unspecified; Z79.891 Long term (current) use of opiate analgesic; Z79.84 Long term (current) use of oral hypoglycemic drugs; Z79.899 Other long term (current) drug therapy; Z88.8 Allergy status to other drugs, medicaments and biological substances

== ENCOUNTER → 2017-04-06 | Outpatient (CLI) | payer MEDICARE | LOC: M PAIN 10:30 | PROVIDERS: ATTEND Nurse Practitioner Family | DX: M46.96 Unspecified inflammatory spondylopathy, lumbar region (principal); M54.6 Pain in thoracic spine; G89.29 Other chronic pain; I10 Essential (primary) hypertension; I48.91 Unspecified atrial fibrillation; E03.9 Hypothyroidism, unspecified; E78.5 Hyperlipidemia, unspecified; E11.9 Type 2 diabetes mellitus without complications; Z79.01 Long term (current) use of anticoagulants; Z79.891 Long term (current) use of opiate analgesic; Z79.84 Long term (current) use of oral hypoglycemic drugs; Z79.899 Other long term (current) drug therapy; Z88.8 Allergy status to other drugs, medicaments and biological substances ==

== ENCOUNTER → 2017-04-12 | Outpatient (REF) | payer MEDICARE ==
[2017-04-12 18:55] LABS: PERCENT SATURATION 19.6 % (19.7-50.0)
== END ==
LOC: M LAB REF 17:38
PROVIDERS: ATTEND Internal Medicine
DX: D50.9 Iron deficiency anemia, unspecified (principal)

== ENCOUNTER → 2017-06-06 | Outpatient (CLI) | payer MEDICARE | LOC: M PAIN 10:15 | DX: M46.96 Unspecified inflammatory spondylopathy, lumbar region (principal); M54.6 Pain in thoracic spine; G89.29 Other chronic pain; I11.0 Hypertensive heart disease with heart failure; E11.9 Type 2 diabetes mellitus without complications; E78.5 Hyperlipidemia, unspecified; E03.9 Hypothyroidism, unspecified; J44.9 Chronic obstructive pulmonary disease, unspecified; I50.9 Heart failure, unspecified; N40.0 Benign prostatic hyperplasia without lower urinary tract symptoms; Z79.891 Long term (current) use of opiate analgesic; Z79.899 Other long term (current) drug therapy; Z79.84 Long term (current) use of oral hypoglycemic drugs; Z88.8 Allergy status to other drugs, medicaments and biological substances | CPT/HCPCS: G0463 ==

== ENCOUNTER → 2017-06-19 | Outpatient (REF) | payer MEDICARE ==
[2017-06-19 13:44] LABS: APPEARANCE, URINE CLEAR (CLEAR); BACTERIA, URINE AUTO NEGATIVE (NEGATIVE); BILIRUBIN, URINE AUTO NEGATIVE (NEGATIVE); BLOOD, URINE BLOOD NEGATIVE (NEGATIVE); GLUCOSE, URINE (UA) AUTO NEGATIVE (NEGATIVE); KETONE, URINE AUTO NEGATIVE (NEGATIVE); LEUKOCYTE ESTERASE, URINE AUTO NEGATIVE (NEGATIVE); NITRITE, URINE AUTO NEGATIVE (NEGATIVE); PROTEIN, URINE AUTO NEGATIVE (NEGATIVE); RBC, URINE AUTO 0 /HPF (0-3); SPECIFIC GRAVITY URINE AUTO 1.012 (1.002-1.035); SQUAMOUS EPITHELIAL CELL UR AU 0 /HPF (0-6); WBC, URINE AUTO 1 /HPF (0-3)
[2017-06-19 13:46] LABS: COLOR, URINE YELLOW (YELLOW)
== END ==
LOC: M LAB REF 10:08
DX: R10.9 Unspecified abdominal pain (principal)
CPT/HCPCS: 81001

== ENCOUNTER → 2017-06-22 | Outpatient (CLI) | payer MEDICARE | LOC: M RAD 12:59 | DX: R10.9 Unspecified abdominal pain (principal); N28.1 Cyst of kidney, acquired | CPT/HCPCS: 76775 ==

== ENCOUNTER → 2017-06-27 | Outpatient (REF) | payer MEDICARE ==
[2017-06-28 10:03] LABS: APPEARANCE, URINE MANUAL HAZY (CLEAR); COLOR, URINE MANUAL YELLOW (YELLOW)
[2017-06-28 10:04] LABS: BACTERIA, URINE NONE SEEN; BILIRUBIN, URINE MANUAL NEGATIVE (NEGATIVE); BLOOD URINE MANUAL NEGATIVE (NEGATIVE); CALCIUM OXALATE CRYSTALS,URINE MOD AMOUNT /hpf; GLUCOSE, URINE (UA) MANUAL NEGATIVE (NEGATIVE); HYALINE CAST, URINE NONE SEEN /lpf (0-1); KETONE, URINE MANUAL NEGATIVE (NEGATIVE); LEUKOCYTE ESTERASE, URINE MAN NEGATIVE (NEGATIVE); MICROSCOPIC EXAM PERFORMED; MICROSCOPIC INDICATED? MAN YES (NO); NITRITE, URINE MANUAL NEGATIVE (NEGATIVE); PROTEIN, URINE MANUAL NEGATIVE (NEGATIVE); RBC, URINE 0-1 /hpf (0-3); SQUAMOUS EPITHELIAL CELL URINE SMALL AMOUNT /hpf (SMALL AMT); UROBILINOGEN, URINE MANUAL NORMAL (NORMAL); WBC, URINE 0-1 /hpf (0-3)
== END ==
LOC: M LAB REF 09:31
DX: N39.0 Urinary tract infection, site not specified (principal)
CPT/HCPCS: 81000

== ENCOUNTER → 2017-06-28 | Outpatient (REF) | payer MEDICARE ==
[2017-06-28 12:18] LABS: ALBUMIN 3.3 GM/DL (3.2-5.2); ANION GAP 10 MEQ/L (8-16); BLOOD UREA NITROGEN 20 MG/DL (7-18); CALCIUM LEVEL 9.5 MG/DL (8.8-10.2); CARBON DIOXIDE LEVEL 31 MEQ/L (21-32); CHLORIDE LEVEL 96 MEQ/L (98-107); CREATININE FOR GFR 1.11 MG/DL (0.70-1.30); GLOMERULAR FILTRATION RATE > 60.0 (>35); GLUCOSE, FASTING 164 MG/DL (70-100); PHOSPHORUS LEVEL 2.6 MG/DL (2.5-4.9); POTASSIUM SERUM 3.6 MEQ/L (3.5-5.1); SODIUM LEVEL 137 MEQ/L (136-145)
== END ==
DX: I50.32 Chronic diastolic (congestive) heart failure (principal)
CPT/HCPCS: 80069

== ENCOUNTER → 2017-07-27 | Outpatient (REF) | payer MEDICARE | LOC: M LAB REF 13:39 | DX: S91.101A Unspecified open wound of right great toe without damage to nail, initial encounter (principal); X58.XXXA Exposure to other specified factors, initial encounter; Y92.89 Other specified places as the place of occurrence of the external cause | CPT/HCPCS: 87186 ==

== ENCOUNTER → 2017-08-31 | Outpatient (CLI) | payer MEDICARE | LOC: M PAIN 10:00 | DX: M46.96 Unspecified inflammatory spondylopathy, lumbar region (principal); M54.6 Pain in thoracic spine; I10 Essential (primary) hypertension; E11.9 Type 2 diabetes mellitus without complications; E03.9 Hypothyroidism, unspecified; J44.9 Chronic obstructive pulmonary disease, unspecified; E78.5 Hyperlipidemia, unspecified; G47.33 Obstructive sleep apnea (adult) (pediatric); Z79.891 Long term (current) use of opiate analgesic; Z79.01 Long term (current) use of anticoagulants; Z79.84 Long term (current) use of oral hypoglycemic drugs; Z79.899 Other long term (current) drug therapy; Z88.8 Allergy status to other drugs, medicaments and biological substances; Z87.39 Personal history of other diseases of the musculoskeletal system and connective tissue; Z87.891 Personal history of nicotine dependence | CPT/HCPCS: G0463 ==

== ENCOUNTER → 2017-09-06 | Outpatient (REF) | payer MEDICARE ==
[2017-09-06 10:50] LABS: ALBUMIN 3.5 GM/DL (3.2-5.2); ANION GAP 11 MEQ/L (8-16); BLOOD UREA NITROGEN 19 MG/DL (7-18); CALCIUM LEVEL 9.3 MG/DL (8.8-10.2); CARBON DIOXIDE LEVEL 31 MEQ/L (21-32); CHLORIDE LEVEL 99 MEQ/L (98-107); CREATININE FOR GFR 1.23 MG/DL (0.70-1.30); GLUCOSE, FASTING 165 MG/DL (70-100); PHOSPHORUS LEVEL 2.6 MG/DL (2.5-4.9); POTASSIUM SERUM 3.5 MEQ/L (3.5-5.1); SODIUM LEVEL 141 MEQ/L (136-145)
== END ==
DX: I50.32 Chronic diastolic (congestive) heart failure (principal)
CPT/HCPCS: 80069

== ENCOUNTER → 2017-09-23 | Outpatient (REF) | payer MEDICARE ==
[2017-09-23 10:18] LABS: ALBUMIN 3.7 GM/DL (3.2-5.2); ALKALINE PHOSPHATASE 68 U/L (45-117); ALT/SGPT 43 U/L (12-78); ANION GAP 10 MEQ/L (8-16); AST/SGOT 57 U/L (7-37); BILIRUBIN,TOTAL 0.6 MG/DL (0.2-1.0); BLOOD UREA NITROGEN 19 MG/DL (7-18); CALCIUM LEVEL 9.4 MG/DL (8.8-10.2); CARBON DIOXIDE LEVEL 30 MEQ/L (21-32); CHLORIDE LEVEL 98 MEQ/L (98-107); CREATININE FOR GFR 1.22 MG/DL (0.70-1.30); GLOMERULAR FILTRATION RATE > 60.0 (>35); GLUCOSE, FASTING 180 MG/DL (70-100); POTASSIUM SERUM 4.1 MEQ/L (3.5-5.1); SODIUM LEVEL 138 MEQ/L (136-145); TOTAL PROTEIN 7.8 GM/DL (6.4-8.2)
== END ==
DX: Z51.81 Encounter for therapeutic drug level monitoring (principal)
CPT/HCPCS: 80053

== ENCOUNTER → 2017-10-04 | Outpatient (REF) | payer MEDICARE ==
[2017-10-04 17:45] LABS: RHEUMATOID FACTOR QUANT < 10.0 IU/ML (<15.0)
[2017-10-07 00:09] LABS: CYCLIC CITRULLINATED PEPTIDE 7 units (0-19)
== END ==
LOC: M LAB REF 16:42
DX: L89.300 Pressure ulcer of unspecified buttock, unstageable (principal)
CPT/HCPCS: 86200

== ENCOUNTER → 2017-10-11 | Outpatient (REF) | payer MEDICARE ==
[2017-10-11 10:13] LABS: ALBUMIN 3.6 GM/DL (3.2-5.2); ANION GAP 10 MEQ/L (8-16); BLOOD UREA NITROGEN 19 MG/DL (7-18); CARBON DIOXIDE LEVEL 30 MEQ/L (21-32); CHLORIDE LEVEL 98 MEQ/L (98-107); CREATININE FOR GFR 1.18 MG/DL (0.70-1.30); GLOMERULAR FILTRATION RATE > 60.0 (>35); GLUCOSE, FASTING 172 MG/DL (70-100); PHOSPHORUS LEVEL 2.7 MG/DL (2.5-4.9); POTASSIUM SERUM 3.6 MEQ/L (3.5-5.1); SODIUM LEVEL 138 MEQ/L (136-145)
== END ==
DX: I48.0 Paroxysmal atrial fibrillation (principal); I50.32 Chronic diastolic (congestive) heart failure
CPT/HCPCS: 83735

== ENCOUNTER → 2017-10-21 | Outpatient (REF) | payer MEDICARE ==
[2017-10-21 09:53] LABS: ALBUMIN 3.9 GM/DL (3.2-5.2); ALBUMIN/GLOBULIN RATIO 0.95 (1.00-1.93); ALKALINE PHOSPHATASE 72 U/L (45-117); ALT/SGPT 43 U/L (12-78); ANION GAP 11 MEQ/L (8-16); AST/SGOT 50 U/L (7-37); BILIRUBIN,TOTAL 0.8 MG/DL (0.2-1.0); BLOOD UREA NITROGEN 23 MG/DL (7-18); CALCIUM LEVEL 9.4 MG/DL (8.8-10.2); CARBON DIOXIDE LEVEL 30 MEQ/L (21-32); CHLORIDE LEVEL 95 MEQ/L (98-107); CREATININE FOR GFR 1.39 MG/DL (0.70-1.30); GLOMERULAR FILTRATION RATE 52.1 (>35); GLUCOSE, FASTING 199 MG/DL (70-100); POTASSIUM SERUM 3.7 MEQ/L (3.5-5.1); SODIUM LEVEL 136 MEQ/L (136-145)
== END ==
DX: L40.9 Psoriasis, unspecified (principal)
CPT/HCPCS: 80053

== ENCOUNTER → 2017-10-28 | Outpatient (REF) | payer MEDICARE ==
[2017-10-28 11:14] LABS: ANION GAP 12 MEQ/L (8-16); BLOOD UREA NITROGEN 32 MG/DL (7-18); CALCIUM LEVEL 9.3 MG/DL (8.8-10.2); CARBON DIOXIDE LEVEL 31 MEQ/L (21-32); CHLORIDE LEVEL 94 MEQ/L (98-107); CREATININE FOR GFR 1.61 MG/DL (0.70-1.30); GLUCOSE, FASTING 237 MG/DL (70-100); POTASSIUM SERUM 3.4 MEQ/L (3.5-5.1); SODIUM LEVEL 137 MEQ/L (136-145)
== END ==
DX: N39.0 Urinary tract infection, site not specified (principal)
CPT/HCPCS: 80048

== ENCOUNTER → 2017-11-08 | Outpatient (REF) | payer MEDICARE ==
[2017-11-08 10:17] LABS: ANION GAP 12 MEQ/L (8-16); BLOOD UREA NITROGEN 25 MG/DL (7-18); CALCIUM LEVEL 9.2 MG/DL (8.8-10.2); CARBON DIOXIDE LEVEL 28 MEQ/L (21-32); CHLORIDE LEVEL 97 MEQ/L (98-107); GLOMERULAR FILTRATION RATE 47.6 (>35); GLUCOSE, FASTING 235 MG/DL (70-100); POTASSIUM SERUM 3.6 MEQ/L (3.5-5.1); SODIUM LEVEL 137 MEQ/L (136-145)
== END ==
DX: Z79.899 Other long term (current) drug therapy (principal)
CPT/HCPCS: 80048

== ENCOUNTER 2017-11-18 17:18 | Emergency (ER) | payer MEDICARE ==
[2017-11-18] MEDS: ACETAMINOPH W/CODEINE #3 TAB UD PO (19:45)
[2017-11-18 20:02] LABS: BASO % 0.1 % (0.0-1.0); EOS # 0.2 10^3/uL (0.0-0.50); EOS % 2.1 % (0.0-3.0); HEMATOCRIT 26.2 % (42.0-52.0); HEMOGLOBIN 9.1 g/dl (13.5-17.5); IMMATURE GRANULOCYTE % 0.9 % (0-3.0); LYMPH # 1.9 10^3/uL (1.5-4.5); LYMPH % 21.4 % (24.0-44.0); MEAN CORPUSCULAR HEMOGLOBIN 34.5 pg (27.0-33.0); MEAN CORPUSCULAR HGB CONC 34.7 g/dl (32.0-36.5); MEAN CORPUSCULAR VOLUME 99.2 fl (80.0-96.0); MONO # 0.2 10^3/uL (0.0-0.8); MONO % 2.2 % (0.0-5.0); NEUTROPHILS # 6.4 10^3/uL (1.8-7.7); NEUTROPHILS % 73.3 % (36.0-66.0); PLATELET COUNT, AUTOMATED 133 10^3/uL (150-450); RED BLOOD COUNT 2.64 10^6/uL (4.30-6.10); RED CELL DISTRIBUTION WIDTH 16.2 % (11.5-14.5); WHITE BLOOD COUNT 8.7 10^3/uL (4.0-10.0)
[2017-11-18 20:20] LABS: INR 1.22; PROTHROMBIN TIME 15.6 SECONDS (12.4-14.5)
[2017-11-18 20:42] LABS: ANION GAP 11 MEQ/L (8-16); BLOOD UREA NITROGEN 28 MG/DL (7-18); CALCIUM LEVEL 9.3 MG/DL (8.8-10.2); CARBON DIOXIDE LEVEL 29 MEQ/L (21-32); CHLORIDE LEVEL 97 MEQ/L (98-107); CREATININE FOR GFR 1.81 MG/DL (0.70-1.30); DIGOXIN LEVEL 1.4 NG/ML (0.5-2.0); GLOMERULAR FILTRATION RATE 38.3 (>35); GLUCOSE, FASTING 207 MG/DL (70-100); POTASSIUM SERUM 4.2 MEQ/L (3.5-5.1); SODIUM LEVEL 137 MEQ/L (136-145)
== END 2017-11-19 00:53 | disposition home or self-care (01) ==
LOC: M ED 11-19 00:53
DX: S70.01XA Contusion of right hip, initial encounter (principal); W18.11XA Fall from or off toilet without subsequent striking against object, initial encounter; Y92.121 Bathroom in nursing home as the place of occurrence of the external cause; Y93.89 Activity, other specified; Y99.9 Unspecified external cause status; E11.9 Type 2 diabetes mellitus without complications; I10 Essential (primary) hypertension; E03.9 Hypothyroidism, unspecified; Z86.711 Personal history of pulmonary embolism; Z86.718 Personal history of other venous thrombosis and embolism; Z87.442 Personal history of urinary calculi; Z79.84 Long term (current) use of oral hypoglycemic drugs; Z79.899 Other long term (current) drug therapy; Z88.8 Allergy status to other drugs, medicaments and biological substances
CPT/HCPCS: 72072

== ENCOUNTER → 2017-11-18 | Outpatient (REF) | payer MEDICARE ==
[2017-11-18 09:49] LABS: APPEARANCE, URINE CLEAR (CLEAR); BACTERIA, URINE AUTO NEGATIVE (NEGATIVE); BILIRUBIN, URINE AUTO NEGATIVE (NEGATIVE); BLOOD, URINE BLOOD 1+ (NEGATIVE); COLOR, URINE YELLOW (YELLOW); GLUCOSE, URINE (UA) AUTO NEGATIVE (NEGATIVE); KETONE, URINE AUTO NEGATIVE (NEGATIVE); LEUKOCYTE ESTERASE, URINE AUTO NEGATIVE (NEGATIVE); MUCUS, URINE SMALL (NEGATIVE); NITRITE, URINE AUTO NEGATIVE (NEGATIVE); PROTEIN, URINE AUTO NEGATIVE (NEGATIVE); RBC, URINE AUTO 0 /HPF (0-3); SPECIFIC GRAVITY URINE AUTO 1.008 (1.002-1.035); SQUAMOUS EPITHELIAL CELL UR AU 0 /HPF (0-6); UROBILINOGEN, URINE AUTO 0.2 mg/dL (0.0-2.0); WBC, URINE AUTO 0 /HPF (0-3)
[2017-11-18 10:32] LABS: BASO % 0.4 % (0.0-1.0); EOS # 0.2 10^3/uL (0.0-0.50); HEMATOCRIT 28.2 % (42.0-52.0); HEMOGLOBIN 9.4 g/dl (13.5-17.5); IMMATURE GRANULOCYTE % 1.4 % (0-3.0); LYMPH # 1.5 10^3/uL (1.5-4.5); LYMPH % 18.6 % (24.0-44.0); MEAN CORPUSCULAR HEMOGLOBIN 33.6 pg (27.0-33.0); MEAN CORPUSCULAR HGB CONC 33.3 g/dl (32.0-36.5); MEAN CORPUSCULAR VOLUME 100.7 fl (80.0-96.0); MONO # 0.3 10^3/uL (0.0-0.8); MONO % 3.3 % (0.0-5.0); NEUTROPHILS % 74.3 % (36.0-66.0); PLATELET COUNT, AUTOMATED 137 10^3/uL (150-450); RED CELL DISTRIBUTION WIDTH 16.2 % (11.5-14.5)
[2017-11-18 10:54] LABS: ALBUMIN 3.3 GM/DL (3.2-5.2); ALBUMIN/GLOBULIN RATIO 0.83 (1.00-1.93); ALKALINE PHOSPHATASE 90 U/L (45-117); ALT/SGPT 73 U/L (12-78); ANION GAP 13 MEQ/L (8-16); AST/SGOT 76 U/L (7-37); BLOOD UREA NITROGEN 27 MG/DL (7-18); CALCIUM LEVEL 8.6 MG/DL (8.8-10.2); CARBON DIOXIDE LEVEL 29 MEQ/L (21-32); CHLORIDE LEVEL 97 MEQ/L (98-107); CREATININE FOR GFR 1.69 MG/DL (0.70-1.30); GLOMERULAR FILTRATION RATE 41.5 (>35); GLUCOSE, FASTING 236 MG/DL (70-100); POTASSIUM SERUM 3.7 MEQ/L (3.5-5.1); SODIUM LEVEL 139 MEQ/L (136-145); TOTAL PROTEIN 7.3 GM/DL (6.4-8.2)
== END ==
DX: D50.9 Iron deficiency anemia, unspecified (principal); E11.9 Type 2 diabetes mellitus without complications; M54.5 Low back pain; R35.1 Nocturia; N39.0 Urinary tract infection, site not specified
CPT/HCPCS: 80053

== ENCOUNTER → 2017-11-22 | Outpatient (REF) | payer MEDICARE ==
[2017-11-22 12:02] LABS: HEMOGLOBIN 9.2 g/dl (13.5-17.5); MEAN CORPUSCULAR HEMOGLOBIN 34.5 pg (27.0-33.0); MEAN CORPUSCULAR HGB CONC 34.1 g/dl (32.0-36.5); MEAN CORPUSCULAR VOLUME 101.1 fl (80.0-96.0); PLATELET COUNT, AUTOMATED 131 10^3/uL (150-450); RED BLOOD COUNT 2.67 10^6/uL (4.30-6.10); RED CELL DISTRIBUTION WIDTH 16.3 % (11.5-14.5); WHITE BLOOD COUNT 8.4 10^3/uL (4.0-10.0)
== END ==
DX: D64.9 Anemia, unspecified (principal)
CPT/HCPCS: 85027

== ENCOUNTER → 2017-12-02 | Outpatient (REF) | payer MEDICARE ==
[2017-12-02 09:25] LABS: HEMATOCRIT 26.8 % (42.0-52.0); HEMOGLOBIN 9.1 g/dl (13.5-17.5); MEAN CORPUSCULAR HEMOGLOBIN 34.7 pg (27.0-33.0); MEAN CORPUSCULAR VOLUME 102.3 fl (80.0-96.0); PLATELET COUNT, AUTOMATED 129 10^3/uL (150-450); RED BLOOD COUNT 2.62 10^6/uL (4.30-6.10); RED CELL DISTRIBUTION WIDTH 17.1 % (11.5-14.5); WHITE BLOOD COUNT 8.8 10^3/uL (4.0-10.0)
[2017-12-02 10:26] LABS: ALBUMIN 3.3 GM/DL (3.2-5.2); ANION GAP 10 MEQ/L (8-16); BLOOD UREA NITROGEN 22 MG/DL (7-18); CALCIUM LEVEL 9.3 MG/DL (8.8-10.2); CARBON DIOXIDE LEVEL 31 MEQ/L (21-32); CHLORIDE LEVEL 96 MEQ/L (98-107); GLOMERULAR FILTRATION RATE 47.6 (>35); GLUCOSE, FASTING 167 MG/DL (70-100); PHOSPHORUS LEVEL 3.2 MG/DL (2.5-4.9); POTASSIUM SERUM 3.7 MEQ/L (3.5-5.1); SODIUM LEVEL 137 MEQ/L (136-145)
== END ==
DX: I50.32 Chronic diastolic (congestive) heart failure (principal)
CPT/HCPCS: 80069

== ENCOUNTER → 2017-12-05 | Outpatient (CLI) | payer MEDICARE | LOC: M PAIN 11:00 | DX: M46.96 Unspecified inflammatory spondylopathy, lumbar region (principal); M54.6 Pain in thoracic spine; E78.5 Hyperlipidemia, unspecified; I10 Essential (primary) hypertension; E11.9 Type 2 diabetes mellitus without complications; E03.9 Hypothyroidism, unspecified; J44.9 Chronic obstructive pulmonary disease, unspecified; G47.33 Obstructive sleep apnea (adult) (pediatric); Z79.84 Long term (current) use of oral hypoglycemic drugs; Z79.891 Long term (current) use of opiate analgesic; Z79.899 Other long term (current) drug therapy; Z88.8 Allergy status to other drugs, medicaments and biological substances; Z86.718 Personal history of other venous thrombosis and embolism; Z87.39 Personal history of other diseases of the musculoskeletal system and connective tissue; Z86.79 Personal history of other diseases of the circulatory system; Z87.891 Personal history of nicotine dependence | CPT/HCPCS: G0463 ==

== ENCOUNTER → 2017-12-06 | Outpatient (REF) | payer MEDICARE ==
[2017-12-06 10:11] LABS: HEMATOCRIT 27.3 % (42.0-52.0); HEMOGLOBIN 9.2 g/dl (13.5-17.5); MEAN CORPUSCULAR HEMOGLOBIN 34.7 pg (27.0-33.0); MEAN CORPUSCULAR HGB CONC 33.7 g/dl (32.0-36.5); PLATELET COUNT, AUTOMATED 130 10^3/uL (150-450); RED BLOOD COUNT 2.65 10^6/uL (4.30-6.10); WHITE BLOOD COUNT 6.5 10^3/uL (4.0-10.0)
[2017-12-06 10:43] LABS: ALBUMIN 3.4 GM/DL (3.2-5.2); ALBUMIN/GLOBULIN RATIO 0.94 (1.00-1.93); ALKALINE PHOSPHATASE 72 U/L (45-117); ALT/SGPT 30 U/L (12-78); ANION GAP 8 MEQ/L (8-16); AST/SGOT 41 U/L (7-37); BILIRUBIN,TOTAL 1.1 MG/DL (0.2-1.0); BLOOD UREA NITROGEN 19 MG/DL (7-18); CALCIUM LEVEL 8.9 MG/DL (8.8-10.2); CARBON DIOXIDE LEVEL 34 MEQ/L (21-32); CHLORIDE LEVEL 96 MEQ/L (98-107); CREATININE FOR GFR 1.42 MG/DL (0.70-1.30); GLOMERULAR FILTRATION RATE 50.7 (>35); GLUCOSE, FASTING 143 MG/DL (70-100); POTASSIUM SERUM 3.7 MEQ/L (3.5-5.1); SODIUM LEVEL 138 MEQ/L (136-145)
== END ==
DX: I50.9 Heart failure, unspecified (principal)
CPT/HCPCS: 80053

== ENCOUNTER → 2017-12-30 | Outpatient (REF) | payer MEDICARE ==
[2017-12-30 10:36] LABS: ALBUMIN 3.7 GM/DL (3.2-5.2); ALBUMIN/GLOBULIN RATIO 0.95 (1.00-1.93); ALKALINE PHOSPHATASE 74 U/L (45-117); ALT/SGPT 43 U/L (12-78); ANION GAP 15 MEQ/L (8-16); AST/SGOT 57 U/L (7-37); BILIRUBIN,TOTAL 0.9 MG/DL (0.2-1.0); BLOOD UREA NITROGEN 31 MG/DL (7-18); CALCIUM LEVEL 9.7 MG/DL (8.8-10.2); CARBON DIOXIDE LEVEL 26 MEQ/L (21-32); CHLORIDE LEVEL 98 MEQ/L (98-107); CREATININE FOR GFR 1.58 MG/DL (0.70-1.30); GLOMERULAR FILTRATION RATE 44.8 (>35); GLUCOSE, FASTING 205 MG/DL (70-100); POTASSIUM SERUM 3.9 MEQ/L (3.5-5.1); SODIUM LEVEL 139 MEQ/L (136-145); TOTAL PROTEIN 7.6 GM/DL (6.4-8.2)
== END ==
DX: L40.9 Psoriasis, unspecified (principal)
CPT/HCPCS: 80053

== ENCOUNTER → 2018-01-20 | Outpatient (CLI) | payer MEDICARE | LOC: M RAD 11:21 | DX: M79.604 Pain in right leg (principal) | CPT/HCPCS: 93971 ==

== ENCOUNTER → 2018-02-23 | Outpatient (CLI) | payer MEDICARE | LOC: M PAIN 10:30 | DX: M46.96 Unspecified inflammatory spondylopathy, lumbar region (principal); M54.6 Pain in thoracic spine; N40.0 Benign prostatic hyperplasia without lower urinary tract symptoms; E78.5 Hyperlipidemia, unspecified; M10.9 Gout, unspecified; I11.0 Hypertensive heart disease with heart failure; I50.9 Heart failure, unspecified; J44.9 Chronic obstructive pulmonary disease, unspecified; I48.91 Unspecified atrial fibrillation; G47.33 Obstructive sleep apnea (adult) (pediatric); E11.9 Type 2 diabetes mellitus without complications; E03.9 Hypothyroidism, unspecified; Z79.891 Long term (current) use of opiate analgesic; Z87.442 Personal history of urinary calculi; Z86.718 Personal history of other venous thrombosis and embolism; Z79.84 Long term (current) use of oral hypoglycemic drugs; Z79.899 Other long term (current) drug therapy; Z87.891 Personal history of nicotine dependence; Z88.6 Allergy status to analgesic agent | CPT/HCPCS: G0463 ==

== ENCOUNTER → 2018-03-02 | Outpatient (REF) | payer MEDICARE ==
[2018-03-02 18:55] LABS: DIGOXIN LEVEL 1.8 NG/ML (0.5-2.0); FERRITIN 42 NG/ML (26-388); IRON (FE) 65 UG/DL (65-175); PERCENT SATURATION 16.4 % (19.7-50.0); TOTAL IRON BINDING CAPACITY 397 UG/DL (250-450)
== END ==
LOC: M LAB REF 17:05
DX: I48.2 Chronic atrial fibrillation (principal); D50.9 Iron deficiency anemia, unspecified
CPT/HCPCS: 80162

== ENCOUNTER 2018-03-04 09:31 | Emergency (ER) | payer MEDICARE ==
[2018-03-04] MEDS: NORCO, ANEXSIA 5/325MG TABLET (HYDROcodone/ACETAMINOPHEN) PO (10:09)
== END 2018-03-04 10:59 | disposition home or self-care (01) ==
LOC: M ED 09:31
DX: S20.212A Contusion of left front wall of thorax, initial encounter (principal); W18.30XA Fall on same level, unspecified, initial encounter; Y92.128 Other place in nursing home as the place of occurrence of the external cause; I11.0 Hypertensive heart disease with heart failure; J44.9 Chronic obstructive pulmonary disease, unspecified; E11.9 Type 2 diabetes mellitus without complications; I50.9 Heart failure, unspecified; E07.9 Disorder of thyroid, unspecified; G47.33 Obstructive sleep apnea (adult) (pediatric); N40.0 Benign prostatic hyperplasia without lower urinary tract symptoms; I48.91 Unspecified atrial fibrillation; Z79.899 Other long term (current) drug therapy; Z79.84 Long term (current) use of oral hypoglycemic drugs; Z79.890 Hormone replacement therapy; Z79.82 Long term (current) use of aspirin; Z88.8 Allergy status to other drugs, medicaments and biological substances
CPT/HCPCS: 71101

== ENCOUNTER 2018-03-06 17:05 | Emergency (ER) | payer MEDICARE ==
[2018-03-06] MEDS: OXYCODONE/APAP 5MG/325MG(BULK FOR ED) 1 TABLET PO (20:15)
== END 2018-03-06 20:39 | disposition home or self-care (01) ==
LOC: M ED 17:05
DX: S22.42XA Multiple fractures of ribs, left side, initial encounter for closed fracture (principal); W19.XXXA Unspecified fall, initial encounter; Y92.89 Other specified places as the place of occurrence of the external cause; I10 Essential (primary) hypertension; J44.9 Chronic obstructive pulmonary disease, unspecified; E07.9 Disorder of thyroid, unspecified; K21.9 Gastro-esophageal reflux disease without esophagitis; Z87.442 Personal history of urinary calculi; Z87.891 Personal history of nicotine dependence; Z88.8 Allergy status to other drugs, medicaments and biological substances; Z79.899 Other long term (current) drug therapy; Z79.84 Long term (current) use of oral hypoglycemic drugs
CPT/HCPCS: 71101

== ENCOUNTER → 2018-03-07 | Outpatient (REF) | payer MEDICARE ==
[2018-03-07 10:01] LABS: ANION GAP 10 MEQ/L (8-16); BLOOD UREA NITROGEN 22 MG/DL (7-18); CALCIUM LEVEL 9.4 MG/DL (8.8-10.2); CARBON DIOXIDE LEVEL 29 MEQ/L (21-32); CHLORIDE LEVEL 98 MEQ/L (98-107); CREATININE FOR GFR 1.38 MG/DL (0.70-1.30); GLOMERULAR FILTRATION RATE 52.4 (>35); GLUCOSE, FASTING 193 MG/DL (70-100); MAGNESIUM LEVEL 1.8 MG/DL (1.8-2.4); POTASSIUM SERUM 3.9 MEQ/L (3.5-5.1); SODIUM LEVEL 137 MEQ/L (136-145)
== END ==
DX: I50.32 Chronic diastolic (congestive) heart failure (principal); I48.0 Paroxysmal atrial fibrillation
CPT/HCPCS: 83735

== ENCOUNTER → 2018-05-25 | Outpatient (CLI) | payer MEDICARE ==
[~2018-05-25] MED LIST changes: +ACET1TAB16 PO; +ACET300T52 PO; +ACET30TAB PO; +ACET500T15 PO; -ACET50TAOT PO; +ALLE180T33 PO; +ASPI81TA24 PO; -DOCQ100C PO; +DOCQ100C5 PO; +FERR32TA PO; +FISH7.5C PO; +FOLI1TAB11 PO; -LASI20TA PO; +LASI20TA3 PO; -LASI40TA PO; +LASI40TA9 PO; +METF500T4 PO; +METH2.5T48 PO; +MILK120011 PO; -MILKSUS PO; +NITR0.3S SL; -NITR3TA SL; +NYST10CR TOP; +ONDA4TAB6 PO; +PERC5TAB12 PO; +SYST1SOL OU; +TORS20TA2 PO; +TRIA1OI TOP; +TRUL10IN SC; +ZOFR4TAB14 PO
--- NOTE | 2018-06-19 00:27 | ECWPNPC ---
PATIENT NAME: TY MARIE : 1935 GENDER: MALE VISIT DATE: 05/25/2018 DISCHARGE DATE: 05/25/18 1205 VISIT LOCKED DATE TIME: PHYSICIAN: ALCON KAUR RESOURCE: ALCON KAUR REASON FOR APPOINTMENT 1. BACK PAIN HISTORY OF PRESENT ILLNESS HISTORY OF PRESENT ILLNESS: HERE FOR F/U OF CHRONIC LOW BACK PAIN.RATING PAIN VAS 7/10.DESCRIBES PAIN CONSTANT ACHING PAIN.FINDS CURRENT CHRONIC PAIN MEDICATION EFFECTIVE AT REDUCING PAIN AND KEEPING HIM FUNCTIONAL.HE IS A RESIDENT AT [employer] HERE IN [place].HE IS MAINLY WHEELCHAIR DEPENDENT. PAIN THE PATIENT DESCRIBES THE PAIN... FALL RISK SCREENING: SCREENING :NO FALLS IN THE PAST YEAR CURRENT MEDICATIONS TAKING ALLOPURINOL 100 MG TABLET 1 TABLET ORALLY TWICE A DAY TAKING CALCIUM 600 MG TABLET 1TAB ORALLY BID TAKING LOVASTATIN 10 MG TABLET 1 TABLET WITH A MEAL ORALLY ONCE A DAY TAKING MULTIVITAMINS TABLET 1TAB ORALLY DAILY TAKING POTASSIUM CHLORIDE 10 MEQ CAPSULE EXTENDED RELEASE 2 CAPSULE ORALLY TWICE A DAY TAKING DIGOXIN 125 MCG TABLET 1 TABLET ORALLY ONCE A DAY TAKING FISH OIL 1000 MG CAPSULE 1 CAPSULE ORALLY BID TAKING LEVOTHYROXINE SODIUM 125 MCG TABLET 1 TABLET ON AN EMPTY STOMACH IN THE MORNING ORALLY ONCE A DAY TAKING MULTAQ 400 MG TABLET 1 TABLET WITH MEALS ORALLY TWICE A DAY TAKING POLYETHYLENE GLYCOL POWDER 17MG Q OTHER DAY TAKING OMEPRAZOLE 20MG 20MG TABLET 1CAP ORAL DAILY TAKING NITROSTAT 0.4 MG TABLET SUBLINGUAL SUBLINGUAL DIRECTED TAKING JANUVIA 50 MG TABLET 1 TAB ORALLY ONCE A DAY TAKING METFORMIN HCL 1000 MG TABLET 1 TABLET WITH MEALS ORALLY TWICE A DAY TAKING ACETAMINOPHEN 500 MG TABLET 1 TABLET NEEDED ORALLY EVERY 6 HRS PRN PAIN OR FEVER MDD=4 TAKE WITH TRAMADOL TAKING TRULICITY 0.75 MG/0.5ML SOLUTION PEN-INJECTOR 0.5 ML SUBCUTANEOUS WEEKLY TAKING FERROUS GLUCONATE 324 (38 FE) MG TABLET ORALLY TAKING MELATONIN 10 MG TABLET 1 TAB ORALLY ONCE DAILY TAKING CHELSEA ALLERGY 180 MG TABLET 1 TABLET ORALLY ONCE A DAY TAKING METHOTREXATE 2.5 MG TABLET 7 TABS ORALLY EVERY TUE TAKING FOLIC ACID 1 MG TABLET 1 TABLET ORALLY ONCE A DAY TAKING SYSTANE 0.4-0.3 % SOLUTION 1 DROP INTO AFFECTED EYE NEEDED OPHTHALMIC 24 TIME(S) A DAY TAKING ONDANSETRON 4 MGS 1 TAB ORAL NEEDED FOR NAUSEA TAKING MILK OF MAGNESIA 400 MG/5ML SUSPENSION 5 ML NEEDED ORALLY FOUR TIMES A DAY TAKING TORSEMIDE 20 MG TABLET 2 TABS ORALLY DAILY TAKING TORSEMIDE 20 MG TABLET 1 ORALLY AT 1400 DAILY TAKING TRIAMCINOLONE ACETONIDE 0.025 % CREAM 1 APPLICATION TO AFFECTED AREA EXTERNALLY NEEDED TAKING NYSTATIN 434406 UNIT/GM CREAM 1 APPLICATION TO AFFECTED AREA EXTERNALLY TWICE A DAY TAKING GUAIFENESIN-DM 100-10 MG/5ML SYRUP 10 ML NEEDED ORALLY EVERY 4 HRS TAKING MORPHINE SULFATE ER 15 MG TABLET EXTENDED RELEASE 1 TABLET ORALLY TAKE 1 TAB AT 06 AM, AND 1 TAB AT HS. CHRONIC PAIN MDD=2 TAKING ASPIRIN EC 81 MG TABLET DELAYED RELEASE 1 TABLET ORALLY ONCE A DAY TAKING ACETAMINOPHEN-CODEINE #4 300-60 MG TABLET 1 TABLET NEEDED ORALLY EVERY 6 HRS NOT-TAKING DOCUSATE SODIUM 100 MG CAPSULE 1 CAPSULE ORALLY BID NOT-TAKING CALCIPOTRIENE 0.005 % OINTMENT 1 APPLICATION TO AFFECTED AREA EXTERNALLY BID FOR PSORASIS NOT-TAKING OXYCODONE-ACETAMINOPHEN 5-325 MG TABLET 1 TABLET NEEDED ORALLY EVERY 6 HRS PRN PAIN MDD=4 NOT-TAKING COLACE 200 CAPSULE 1 CAPSULE NEEDED ORALLY TWICE DAILY, NOTES: DUPLICATE NOT-TAKING KETOCONAZOLE 2 % CREAM 1 APPLICATION TO AFFECTED AREA EXTERNALLY ONCE A DAY NOT-TAKING NORCO 10-325 MG TABLET 1 TABLET NEEDED ORALLY EVERY 6 HRS PRN PAIN MDD=4 NOT-TAKING FUROSEMIDE 40 MG TABLET 1 TABLET ORALLY DAILY IN THE AM, NOTES: IN AM NOT-TAKING ELIQUIS 5MG TABLET 1TAB ORAL TWICE DAILY NOT-TAKING HYDROCODONE-ACETAMINOPHEN 10-325 MG TABLET 1 TAB ORALLY EVERY 4- 6 HRSMDD4 NOT-TAKING LASIX 20 MG TABLET 1 TABLET ORALLY ONCE A DAY IN THE AFTERNOON, NOTES: IN AFTERNOON NOT-TAKING MECLIZINE HCL 25 MG TABLET CHEWABLE 1 TABLET ORALLY THREE TIMES A DAY PRN NOT-TAKING ZOLPIDEM TARTRATE 12.5 MG TABLET EXTENDED RELEASE 2 TABLET AT BEDTIME NEEDED ORALLY ONCE A DAY NOT-TAKING TAMSULOSIN HCL 0.4 MG CAPSULE 1 CAPSULE 30 MINUTES AFTER THE SAME MEAL EACH DAY ORALLY ONCE A DAY NOT-TAKING SPIRONOLACTONE 25 MG TABLET 1 TABLET ORALLY ONCE A DAY MEDICATION LIST REVIEWED AND RECONCILED WITH THE PATIENT PAST MEDICAL HISTORY BPH HYPERLIPIDEMIA DVT GOUT KIDNEY STONES PNEUMONIA HYPERTENSION CHF ? TB COPD HTN AFIB DM TYPE 2 HYPOTHYROID DRY EYES PSORIASIS INSOMNIA CHRONIC PAIN SYNDROME CONSTIPATION REBEKAH HEART FAILURE UNSPECIFIED ALLERGIES INDOCIN: HALLUCINATION: SIDE EFFECTS SURGICAL HISTORY TURP CATARACT CYSTOSCOPY SEVERAL LEFT ARM SURG AND TONSILLECTOMY DISTANT PAST LITHOTRIPSY FAMILY HISTORY FATHER: MOTHER: 2 BROTHER(S) , 2 SISTER(S) . 2 SON(S) , 4 DAUGHTER(S) . SOCIAL HISTORY GENERAL: TOBACCO USE ARE YOU A:FORMER SMOKER HOW LONG HAS IT BEEN SINCE YOU LAST SMOKED?> 10 YEARS BMI CARE GOAL FOLLOW-UP BELOW NORMAL BMI FOLLOW-UPDIETARY EDUCATION FOR WEIGHT GAIN ALCOHOL SCREENING DID YOU HAVE A DRINK CONTAINING ALCOHOL IN THE PAST YEAR?NO POINTS0 INTERPRETATIONNEGATIVE RECREATIONAL DRUG USE DRUG USE?NO PATIENT DENIES ABUSE OR MISSUSED OF ANY MEDICATION. PATIENT DENIES USE OF ANY ILLEGAL SUBSTANCE INCLUDING MARIJUANA OR COCAINE. YARSANI [id number] DRUZE NO DENOMINATIONAL BELIEFS THAT WOULD IMPACT HEALTH CARE. LANGUAGE LANGUAGES SPOKEN:WELSH LEARNING BARRIERS / SPECIAL NEEDS HEARING IMPAIRED?YES :HEARING AIDES VISION IMPAIRED?YES :CORRECTIVE LENSES COGNITIVELY IMPAIRED?NO SPECIAL DEVICES?YES :WHEELCHAIR OTHERS AT HOME: LIVES [facility]. NEW PATIENT PAIN DIARY FROM 0-10, WHAT LEVEL IS YOUR PAIN TODAY?7 PAIN CLINIC PFS, CLERGY, PUBLIC HEALTH REFERRALS PFS REFERRAL NEEDED?NO CLERGY REFERRAL NEEDED?NO PUBLIC HEALTH REFERRAL NEEDED?NO HAS THE PATIENT BEEN EDUCATED REGARDING HIS/HER PLAN OF CARE?YES HAS THE PATIENT BEEN EDUCATED REGARDING PAIN, THE RISK FOR PAIN, THE IMPORTANCE OF EFFECTIVE PAIN MANAGEMENT, AND THE PAIN ASSESSMENT PROCESS?YES ADVANCE DIRECTIVE ADVANCE DIRECTIVE DISCUSSED WITH PATIENT:YES HCP - MARITZA MARIE (DAUGHTER) [phone] PATIENT IS NOT A CURRENT SMOKER OR DOES NOT ABUSE ALCOHOL.REVIEWED WITH PATIENT 02/23/18 1118 JS05/25/18 REVIEWED WITH PT. AD. HOSPITALIZATION/MAJOR DIAGNOSTIC PROCEDURE SURGERY RELATED REVIEW OF SYSTEMS REVIEWED BY: PROVIDER: ALCON MATTSON . CONSTITUTIONAL: ANY CHANGE IN YOUR MEDICAL CONDITION? NO . CHILLS NO . FEVER NO . INFECTION: DO YOU HAVE NEW INFECTIONS? NO . DO YOU HAVE HISTORY OF MRSA? NO . MUSCULOSKELETAL: ANY NEW PATTERNS OF PAIN OR NUMBNESS? NO . GASTROENTEROLOGY: ANY NEW CHANGE IN BOWEL CONTROL? NO . GENITOURINARY: ANY NEW CHANGE IN BLADDER CONTROL? NO . IS THERE A CHANCE YOU COULD BE ? NO . HEMATOLOGY/LYMPH: DO YOU TAKE ANY BLOOD THINNERS? (FOR EXAMPLE- COUMADIN, PLAVIX, AGGRENOX, PLATEL, PRADAXA, OR XARELTO) YES . WHEN WAS YOUR LAST DOSE? DATE: TIME: 05/25/18 0830 . NEUROLOGY: HAVE YOU FALLEN IN THE PAST 6 MONTHS? NO . ANY NEW EXTREMITY NUMBNESS OR WEAKNESS? NO . CARDIOLOGY: DO YOU HAVE A PACEMAKER OR DEFIBRILLATOR? NO . RESPIRATORY: HAVE YOU BEEN SICK IN THE PAST WEEK? NO . FEVER NO . FLU LIKE SYMPTOMS? NO . COUGH NO . INTEGUMENTARY: DO YOU HAVE ANY RASHES OR OPEN SORES? YES OPEN SORE RIGHT 2ND AND 3RD TOE . ALLERGIC/IMMUNO: ARE YOU ALLERGIC TO SHELLFISH OR IV DYE? NO . ANY NEW ALLERGIES? NO . PSYCHIATRIC: DO YOU HAVE THOUGHTS OF HURTING YOURSELF OR SOMEONE ELSE? NO . ARE YOU ABUSED, NEGLECTED, OR IN AN UNSAFE ENVIRONMENT? NO . ENDOCRINOLOGY: ARE YOU DIABETIC? YES, NO FSBS THIS A.M. 175 . OTHER: DO YOU NEED ANY PRESCRIPTIONS? NO . IF YES, PLEASE LIST: ____ . ANY NEW PROBLEMS WITH YOUR MEDICATIONS? NO . WHEN DID YOU LAST EAT? ____ . WHEN DID YOU LAST DRINK? ____ . WHAT DID YOU LAST DRINK? ____ . NAME OF PERSON DRIVING YOU HOME? ____ . DO YOU HAVE ANY OTHER QUESTIONS OR CONCERNS NO . VITAL SIGNS WT 186 LBS, HT 74", BMI 23.88 INDEX, BP 122/63 MM HG, HR 82 /MIN, RR 16 /MIN, TEMP 98.6 F, OXYGEN SAT % 96%, SAFE IN ENV? (Y/N) Y, NA INITIALS OR, REVIEWED BY: SUE. EXAMINATION GENERAL EXAMINATION: PSYCHALERT , ORIENTED X 3 , APPROPRIATE MOOD AND AFFECT . LUNGS:CLEAR TO AUSCULTATION BILATERALLY. HEART:II/ SYSTOLIC MURMUR. MUSCULOSKELETAL:ABLE TO RISE SLOWLY TO STANDING POSITION WITH ASSISTANCE. AFO SPLINTS IN PLACE TO LOWER EXTREMITIES. TENDER WITH PALPATION OVER THORACIC AND LUMBAR SPINOUS PROCESSES. EXTREMITIES:TRACE EDEMA LOWER EXTREMITIES. SKIN:2 CM IN DIAMETER OPEN LESION NOTED OVER THE BASE OF THE SACRUM AT THE TOP OF THE GLUTEAL FOLD. NO EXUDATE. NO OPEN AREA NOTED OVER THE ISHIUM BILATERALLY. . 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 CHRONIC PAIN MDD=2 CONTINUE ACETAMINOPHEN-CODEINE #4 TABLET, 300-60 MG, 1 TABLET NEEDED, ORALLY, EVERY 6 HRS NOTES: ISTOP REGISTRY REVIEWED AND DEMONSTRATES COMPLLIANCE. (REF # [id number] ) BRINGS IN MEDICATIONS WHICH IS APPROPRIATE FOR WHAT WAS DISPENSED. RECENT URINE TOXICOLOGY REVIEWED. NO UNAUTHORIZED MEDICATIONS. NO ILLICIT SUBSTANCES AND PRESCRIBED MEDICATIONS WERE PRESENT. URINE TOX TODAY. PROCEDURE CODES FA211 ESTABILISHED PATIENT [facility] CHARGE DISPOSITION & COMMUNICATION FOLLOW UP 3 MONTHS ELECTRONICALLY SIGNED BY SRINIVASAN PILLAI ON 06/18/2018 AT 05:47 PM EST DISCLAIMER : THIS IS A VISIT SUMMARY EXTRACTED FROM THE [employer] CHART. IT IS NOT A COPY OF THE [employer] PROGRESS NOTE. HERNANDO
== END ==
LOC: M PAIN 11:00
PROVIDERS: ATTEND Nurse Practitioner Family
DX: M46.96 Unspecified inflammatory spondylopathy, lumbar region (principal); G89.29 Other chronic pain; E78.5 Hyperlipidemia, unspecified; E11.9 Type 2 diabetes mellitus without complications; I11.0 Hypertensive heart disease with heart failure; I50.9 Heart failure, unspecified; E03.9 Hypothyroidism, unspecified; J44.9 Chronic obstructive pulmonary disease, unspecified; G47.33 Obstructive sleep apnea (adult) (pediatric); Z79.01 Long term (current) use of anticoagulants; Z79.84 Long term (current) use of oral hypoglycemic drugs; Z79.82 Long term (current) use of aspirin; Z79.891 Long term (current) use of opiate analgesic; Z79.899 Other long term (current) drug therapy; Z88.8 Allergy status to other drugs, medicaments and biological substances; Z87.891 Personal history of nicotine dependence; Z87.39 Personal history of other diseases of the musculoskeletal system and connective tissue; Z86.79 Personal history of other diseases of the circulatory system

== ENCOUNTER 2018-05-28 17:49 | Emergency (ER) | payer MEDICARE ==
[~2018-05-28] VITALS: Ht 188 cm; Wt 81.4 kg
[~2018-05-28 17:49] MED LIST changes: -ACET300T52 PO; -ZOFR4TAB14 PO
[2018-05-28] MEDS ORDERED: ZOFR4TAB14 PO (18:27)
[2018-05-28] MEDS ORDERED: ACET300T52 PO (18:27)
--- NOTE | 2018-05-28 18:52 | REP ---
Clinical: Pain with recent fall. Technique: AP and frog lateral views of the right femur. Findings: In conjunction with right hip series, the femur is intact and there is no evidence for acute fracture or dislocation. Impression: No acute femur fracture identified. Electronically Signed by Thomas Landaverde MD 05/28/2018 06:44 P
--- NOTE | 2018-05-28 18:53 | REP ---
Clinical: Pain with recent fall. Technique: AP view of the pelvis with neutral and frog lateral views of the right hip. Findings: Generalized age-related degenerative changes are appreciated. The bilateral hip joints are symmetric on frontal pelvic radiograph. No acute fracture or dislocation identified. Impression: No obvious acute fracture or dislocation identified. Electronically Signed by Thomas Landaverde MD 05/28/2018 06:45 P
[2018-05-28 19:15] LABS: HEMOGLOBIN 9.6 g/dl (13.5-17.5); MEAN CORPUSCULAR HEMOGLOBIN 33.7 pg (27.0-33.0); MEAN CORPUSCULAR HGB CONC 33.1 g/dl (32.0-36.5); MEAN CORPUSCULAR VOLUME 101.8 fl (80.0-96.0); PLATELET COUNT, AUTOMATED 171 10^3/uL (150-450); RED BLOOD COUNT 2.85 10^6/uL (4.30-6.10); WHITE BLOOD COUNT 8.4 10^3/uL (4.0-10.0)
[2018-05-28] MEDS ORDERED: ACETAMINOPHEN TAB 650MG DOSE (2X325MG) PO ONE (19:30)
[2018-05-28 19:33] LABS: INR 1.02; PROTHROMBIN TIME 13.5 SECONDS (12.1-14.4)
[2018-05-28 19:36] LABS: CALCIUM LEVEL 9.2 MG/DL (8.8-10.2); CREATININE FOR GFR 1.53 MG/DL (0.70-1.30); GLOMERULAR FILTRATION RATE 46.5 (>35); POTASSIUM SERUM 4.1 MEQ/L (3.5-5.1)
[2018-05-28 20:15] VITALS: BP 114/56
== END 2018-05-28 21:43 | disposition home or self-care (01) ==
LOC: M ED 17:49 → EDBD 17:49 → M ED 21:43
DX: S70.11XA Contusion of right thigh, initial encounter (principal); W19.XXXA Unspecified fall, initial encounter; Y92.129 Unspecified place in nursing home as the place of occurrence of the external cause; M21.371 Foot drop, right foot; M21.372 Foot drop, left foot; I48.91 Unspecified atrial fibrillation; I50.9 Heart failure, unspecified; I11.0 Hypertensive heart disease with heart failure; E11.9 Type 2 diabetes mellitus without complications; J44.9 Chronic obstructive pulmonary disease, unspecified; G47.33 Obstructive sleep apnea (adult) (pediatric); N40.0 Benign prostatic hyperplasia without lower urinary tract symptoms; K21.9 Gastro-esophageal reflux disease without esophagitis; Z87.891 Personal history of nicotine dependence; Z87.81 Personal history of (healed) traumatic fracture; Z88.8 Allergy status to other drugs, medicaments and biological substances; Z79.899 Other long term (current) drug therapy; Z79.84 Long term (current) use of oral hypoglycemic drugs; Z79.891 Long term (current) use of opiate analgesic; Z79.82 Long term (current) use of aspirin

== ENCOUNTER → 2018-06-07 | Outpatient (REF) | payer MEDICARE ==
[~2018-06-07] MED LIST changes: +ACET300T52 PO; +CIPR-249 PO; +FLOM0.4C39 PO; +ZOFR4TAB14 PO
[2018-06-07 11:50] LABS: HEMOGLOBIN 9.9 g/dl (13.5-17.5); MEAN CORPUSCULAR HEMOGLOBIN 34.5 pg (27.0-33.0); MEAN CORPUSCULAR VOLUME 104.5 fl (80.0-96.0); PLATELET COUNT, AUTOMATED 171 10^3/uL (150-450); RED BLOOD COUNT 2.87 10^6/uL (4.30-6.10); WHITE BLOOD COUNT 9.6 10^3/uL (4.0-10.0)
[2018-06-07 12:10] LABS: ALBUMIN 3.2 GM/DL (3.2-5.2); BILIRUBIN,TOTAL 0.7 MG/DL (0.2-1.0); CALCIUM LEVEL 9.4 MG/DL (8.8-10.2); CHOLESTEROL RISK RATIO 3.657 (<5); CREATININE FOR GFR 1.36 MG/DL (0.70-1.30); GLOMERULAR FILTRATION RATE 53.3 (>35); MAGNESIUM LEVEL 1.8 MG/DL (1.8-2.4); TOTAL PROTEIN 6.8 GM/DL (6.4-8.2)
== END ==
PROVIDERS: ATTEND Physician Assistant
DX: I50.9 Heart failure, unspecified (principal); E78.5 Hyperlipidemia, unspecified; I48.91 Unspecified atrial fibrillation

== ENCOUNTER 2018-06-17 21:16 | Inpatient (IN) | payer MEDICARE ==
[~2018-06-17] VITALS: Ht 188 cm; Wt 78.0 kg
[~2018-06-17 21:16] MED LIST changes: -CIPR-249 PO; -FLOM0.4C39 PO
[2018-06-17] MEDS ORDERED: ACETAMINOPHEN 325 MG TAB PO ONE (21:45)
[2018-06-17] MEDS ORDERED: NS 1,000 ML IV ONE (21:45)
[2018-06-17 22:10] LABS: BASO # 0.1 10^3/uL (0.0-0.2); BASO % 0.5 % (0.0-1.0); HEMATOCRIT 34.1 % (42.0-52.0); HEMOGLOBIN 11.3 g/dl (13.5-17.5); LYMPH # 0.7 10^3/uL (1.5-4.5); LYMPH % 5.6 % (24.0-44.0); MEAN CORPUSCULAR HEMOGLOBIN 33.9 pg (27.0-33.0); MEAN CORPUSCULAR HGB CONC 33.1 g/dl (32.0-36.5); MEAN CORPUSCULAR VOLUME 102.4 fl (80.0-96.0); MONO # 0.3 10^3/uL (0.0-0.8); NEUTROPHILS # 11.9 10^3/uL (1.8-7.7); NEUTROPHILS % 91.1 % (36.0-66.0); PLATELET COUNT, AUTOMATED 164 10^3/uL (150-450); RED BLOOD COUNT 3.33 10^6/uL (4.30-6.10); WHITE BLOOD COUNT 13.1 10^3/uL (4.0-10.0)
[2018-06-17 22:19] LABS: INFLUENZA A AMPLIFICATION NEGATIVE (NEGATIVE); INFLUENZA B AMPLIFICATION NEGATIVE (NEGATIVE)
[2018-06-17 22:28] LABS: CALCIUM LEVEL 9.3 MG/DL (8.8-10.2); CREATININE FOR GFR 1.64 MG/DL (0.70-1.30); GLOMERULAR FILTRATION RATE 42.9 (>35); POTASSIUM SERUM 4.1 MEQ/L (3.5-5.1)
[2018-06-17] MEDS ORDERED: ONDA4TAB6 PO (23:03)
[2018-06-17] MEDS ORDERED: PIPERACILLIN/TAZOBACTAM SOD 3.375 GM in D5W MINI-BAG PLUS 50 ML IV ONE (23:15)
[2018-06-17] MEDS ORDERED: VANCOMYCIN HCL 750 MG, VIAL MATE ADAPTER 1 EACH in D5W 250 ML IV ONE (23:15)
[2018-06-18] MEDS ORDERED: guaiFENesin DM LIQ 10ML UD PO PRN (00:45)
[2018-06-18] MEDS ORDERED: ONDANSETRON 4 MG ORAL DISINTEGRATING TAB (Q0162 PER 1MG) PO PRN (00:45)
[2018-06-18] MEDS ORDERED: POLYVINYL ALCOHOL OPHTH SOLN 15 ML(LIQUITEARS) OU PRN (00:45)
[2018-06-18] MEDS ORDERED: GLUCAGON FOR INJ 1 MG VIAL (J1610) SC PRN (01:00)
[2018-06-18] MEDS ORDERED: NITROGLYCERIN 0.4 MG SUBL TABLET SL PRN (01:00)
[2018-06-18] MEDS ORDERED: GLUCOSE 4 GM CHEW TABLET PO PRN (01:00)
[2018-06-18] MEDS ORDERED: DEXTROSE 50% 50 ML SYRINGE IV PRN (01:00)
[2018-06-18 01:33] LABS: ERYTHROCYTE SEDIMENTATION RATE 86 mm/hr (0-20)
[2018-06-18 01:35] LABS: APPEARANCE, URINE CLEAR (CLEAR); BACTERIA, URINE AUTO NEGATIVE (NEGATIVE); BILIRUBIN, URINE AUTO NEGATIVE (NEGATIVE); BLOOD, URINE BLOOD NEGATIVE (NEGATIVE); COLOR, URINE YELLOW (YELLOW); GLUCOSE, URINE (UA) AUTO NEGATIVE (NEGATIVE); KETONE, URINE AUTO NEGATIVE (NEGATIVE); LEUKOCYTE ESTERASE, URINE AUTO NEGATIVE (NEGATIVE); MUCUS, URINE SMALL (NEGATIVE); NITRITE, URINE AUTO NEGATIVE (NEGATIVE); PROTEIN, URINE AUTO NEGATIVE (NEGATIVE); RBC, URINE AUTO 1 /HPF (0-3); SPECIFIC GRAVITY URINE AUTO 1.009 (1.002-1.035); SQUAMOUS EPITHELIAL CELL UR AU 0 /HPF (0-6); UROBILINOGEN, URINE AUTO 0.2 mg/dL (0.0-2.0); WBC, URINE AUTO 0 /HPF (0-3)
--- NOTE | 2018-06-18 01:44 | REPVR ---
EXAM: CT Chest Without Contrast EXAM DATE/TIME: 06/18/18 (1:15am) CLINICAL HISTORY: 82 year old male with SOB. Assess for pneumonia. TECHNIQUE: Axial computed tomography images of the chest without intravenous contrast. All CT scans at this facility use at least one of these dose optimization techniques: automated exposure control; mA and/or kV adjustment per patient size (includes targeted exams where dose is matched to clinical indication); or iterative reconstruction. Coronal and sagittal reformatted images were created and reviewed. MIP reconstructed images were created and reviewed. COMPARISON: Frontal CXR of 06/17/18 FINDINGS: Lungs: Extensive diffuse bilateral coarse interstitial disease, most prominently seen at the lung bases. No focal infiltrates. Pleural space: Normal. No pneumothorax. No pleural effusions. Heart: Cardiomegaly. No pericardial effusion. Aorta: Normal. No aortic aneurysm. Lymph nodes: Unremarkable. No enlarged lymph nodes. Bones/joints: Unremarkable. No acute fracture. Soft tissues: Unremarkable. Vasculature: Dilated main pulmonary artery segments. Upper abdomen: Distended gallbladder (partially imaged), containing calcified stones. Small cyst (11 mm size) posterolaterally at the midpole of the left kidney (the kidneys are partially imaged). IMPRESSION: Diffuse coarse interstitial lung disease, most likely chronic in nature. However, it is difficult to exclude an acute pneumonitis. Clinical correlation is needed. No consolidation. No significant pleural effusions. Cardiomegaly. Dilated pulmonary artery segments, which may indicate pulmonary arterial hypertension. Electronically signed by: Nora Brito On 06/18/2018 01:43:42 AM
[2018-06-18 02:02] LABS: C REACTIVE PROTEIN QUANTITATIV 5.89 MG/DL (0.00-0.30); THYROID STIMULATING HORMONE 1.16 uIU/ML (0.358-3.740); TROPONIN I 0.03 NG/ML (< 0.10)
[2018-06-18 02:15] VITALS: BP 104/55
[2018-06-18] MEDS: OMEGA-3 1000MG CAPSULE PO SCH ×3 (02:44→20:21)
[2018-06-18] MEDS: DOCUSATE SODIUM 100 MG CAP PO SCH ×3 (02:45→20:19)
[2018-06-18] MEDS: DRONEDARONE 400 MG TAB (MULTAQ) PO SCH ×3 (02:45→20:20)
[2018-06-18] MEDS: POTASSIUM CHLORIDE 10 MEQ SR TABLET PO SCH ×3 (02:46→20:21)
[2018-06-18] MEDS: SIMVASTATIN 10 MG TAB PO SCH ×2 (02:46→20:22)
[2018-06-18] MEDS: AZITHROMYCIN INJ 500 MG, VIAL MATE ADAPTER 1 EACH in D5W 250 ML IV SCH (02:50)
[2018-06-18 04:00] VITALS: BP 102/59
[2018-06-18] MEDS: cefTRIAXone SOD 1 GM in D5W MINI-BAG PLUS 50 ML IV SCH (05:32)
[2018-06-18] MEDS: MORPHINE 15 MG SA TAB PO SCH ×2 (05:38→20:22)
[2018-06-18] MEDS: LEVOTHYROXINE 125MCG TABLET (0.125MG) PO SCH (05:38)
[2018-06-18] MEDS: HEPARIN SOD (PORCINE) 5000 UNITS/ML VIAL SC SCH ×3 (05:42→22:00)
[2018-06-18] MEDS ORDERED: CEFEPIME HCL 1 GM in D5W MINI-BAG PLUS 50 ML IV SCH (06:00)
[2018-06-18 08:00] VITALS: BP 105/53
[2018-06-18] MEDS: HumaLOG INSULIN (NovoLOG) PER UNIT SC SCH ×3 (08:49→17:05)
[2018-06-18] MEDS: TORSEMIDE 20 MG TAB PO SCH ×2 (08:49→13:51)
[2018-06-18] MEDS: ALLOPURINOL 100 MG TAB PO SCH (08:50)
[2018-06-18] MEDS: FOLIC ACID 1 MG TAB PO SCH (08:50)
[2018-06-18] MEDS: OMEPRAZOLE 20 MG CAP PO SCH (08:50)
[2018-06-18] MEDS: DIGOXIN 0.125 MG TAB PO SCH (08:50)
[2018-06-18] MEDS: ASPIRIN 81 MG ENTERIC TAB PO SCH (08:50)
[2018-06-18] MEDS: MULTIVITAMINS/MINERALS THERAP 1 TAB PO SCH (08:50)
[2018-06-18 09:06] LABS: BASO % 0.3 % (0.0-1.0); EOS % 0.2 % (0.0-3.0); HEMATOCRIT 28.3 % (42.0-52.0); HEMOGLOBIN 9.4 g/dl (13.5-17.5); LYMPH # 1.2 10^3/uL (1.5-4.5); LYMPH % 10.5 % (24.0-44.0); MEAN CORPUSCULAR HEMOGLOBIN 34.1 pg (27.0-33.0); MEAN CORPUSCULAR HGB CONC 33.2 g/dl (32.0-36.5); MEAN CORPUSCULAR VOLUME 102.5 fl (80.0-96.0); MONO # 0.4 10^3/uL (0.0-0.8); MONO % 3.4 % (0.0-5.0); NEUTROPHILS # 9.5 10^3/uL (1.8-7.7); NEUTROPHILS % 84.7 % (36.0-66.0); PLATELET COUNT, AUTOMATED 132 10^3/uL (150-450); RED BLOOD COUNT 2.76 10^6/uL (4.30-6.10); WHITE BLOOD COUNT 11.2 10^3/uL (4.0-10.0)
--- NOTE | 2018-06-18 09:29 | ECGEPIP ---
Stationary ECG Study [facility] - ED Test Date: 2018-06-18 Pat Name: TY MARIE Department: Room: [place] [address] Gender: M [employer]: gay : 1935 Requested By: RAJAT SANDERSON Order Number: [id number] Reading MD: Campbell Rothman Measurements Intervals [place] Rate: 91 P: 82 WY: 195 QRS: -29 QRSD: 105 T: 88 QT: 370 QTc: 457 Interpretive Statements SINUS RHYTHM BORDERLINE LEFT AXIS DEVIATION NONSPECIFIC ST & T-WAVE ABNORMALITY IVCD DELAYED R WAVE PROGRESSION CW 01/19/[address] T WAVE CHANGES LATERAL LEADS VS ISCHEMIA CLINICALLY CORRELATE Electronically Signed On 06-18-2018 9:29:00 EST by Campbell Rothman
[2018-06-18 09:33] LABS: ALBUMIN 2.3 GM/DL (3.2-5.2); BILIRUBIN,TOTAL 0.6 MG/DL (0.2-1.0); CALCIUM LEVEL 7.1 MG/DL (8.8-10.2); CREATININE FOR GFR 1.33 MG/DL (0.70-1.30); GLOMERULAR FILTRATION RATE 54.7 (>35); MAGNESIUM LEVEL 1.6 MG/DL (1.8-2.4); POTASSIUM SERUM 2.9 MEQ/L (3.5-5.1); TOTAL PROTEIN 6.9 GM/DL (6.4-8.2)
[2018-06-18] MEDS ORDERED: POTASSIUM CHLORIDE 10 MEQ SR TABLET PO ONE (10:00)
[2018-06-18] MEDS: KCL 40MEQ in NS 1000ML 1,000 ML IV SCH ×2 (10:31→20:19)
--- NOTE | 2018-06-18 10:32 | REP ---
AP PORTABLE CHEST: 06/17/2018. Comparison: PA chest 03/06/2018, portable chest 01/19/2017. Clinical history: Dyspnea. Findings: Lungs are hyperinflated with flattened diaphragms. There is diffuse coarsening of interstitial markings representing significant fibrosis. Apical scarring noted and heavier fibrotic changes in the bases. Heart has left ventricular configuration with some left atrial enlargement. There is some venous engorgement suggesting pulmonary venous hypertension and the pulmonary arteries are prominent centrally suggesting pulmonary artery hypertension. I see no lynda edema or gross pleural effusion. Heavier fibrotic changes at the bases. Difficult to exclude superimposed atelectasis or infiltrate on the left but it may all be heavier fibrotic change there. Calcified tortuous aorta unchanged. No gross aneurysm. Impression: 1. Advanced COPD with interstitial fibrotic changes, pulmonary artery hypertension and heavier fibrosis in the bases. 2. Bones with some degenerative changes in the spine and demineralization. Minor degenerative changes in the shoulders. Electronically Signed by Dwight Louis MD 06/18/2018 02:23 P
[2018-06-18 16:57] LABS: CALCIUM LEVEL 8.4 MG/DL (8.8-10.2); CREATININE FOR GFR 1.43 MG/DL (0.70-1.30); GLOMERULAR FILTRATION RATE 50.3 (>35); MAGNESIUM LEVEL 1.7 MG/DL (1.8-2.4)
[2018-06-18] MEDS: FERROUS GLUCONATE 324 MG TAB PO SCH (17:05)
[2018-06-18 17:25] VITALS: BP 110/58
[2018-06-18] MEDS: ACETAMINOPHEN TAB 650MG DOSE (2X325MG) PO PRN (17:36)
[2018-06-18] MEDS ORDERED: MAG SULF 1GM/100ML (MAG RUN) 1 GM in APPROPRIATE DILUENT 1 EA IV ONE (20:45)
[2018-06-18 22:00] VITALS: BP 104/53
[2018-06-19] MEDS: AZITHROMYCIN INJ 500 MG, VIAL MATE ADAPTER 1 EACH in D5W 250 ML IV SCH (02:07)
[2018-06-19] MEDS: LEVOTHYROXINE 125MCG TABLET (0.125MG) PO SCH (05:23)
[2018-06-19] MEDS: HEPARIN SOD (PORCINE) 5000 UNITS/ML VIAL SC SCH ×3 (05:24→20:18)
[2018-06-19] MEDS: MORPHINE 15 MG SA TAB PO SCH ×2 (05:24→22:39)
[2018-06-19] MEDS: cefTRIAXone SOD 1 GM in D5W MINI-BAG PLUS 50 ML IV SCH (05:25)
[2018-06-19 06:00] VITALS: BP 101/52
--- NOTE | 2018-06-19 06:00 | HPE ---
DATE OF ADMISSION: CHIEF COMPLAINT: Cough, mechanical fall.. HISTORY OF PRESENT ILLNESS (HPI). The patient is an 82-year-old male who resides at the assisted living facility at [facility]. He presents to the emergency room with complaints of nonproductive cough for the past three days. He also states that he was trying to use the bathroom when he slipped and fell. He denies any trauma to the head, says he fell on his buttocks area. He denies any fever or chills though his fever went up to 101.2 in the emergency room, as well as tachycardic up to the 120s. He denies any chest pain. He denies any shortness of breath, denies any orthopnea. He is febrile and tachycardic also, noted to have a lactate of 4.3 in the emergency room. He denies any abdominal pain, constipation. He states had a loose stool this morning. He denies any burning on urination or frequency. PAST MEDICAL HISTORY: See HPI. 1. Benign prostatic hypertrophy (BPH). 2. Gout. 3. Gastroesophageal reflux disease (GERD). 4. Congestive heart failure (CHF). 5. Congestive heart failure (CHF). 6. Paroxysmal atrial fibrillation (A-fib), he is on Multaq and digoxin. 7. Hyperlipidemia. 8. Diabetes. 9. Hypothyroidism. 10. Chronic pulmonary obstructive disease (COPD), not on oxygen. 11. Obstructive sleep apnea on C-PAP. 12. Psoriasis. HOME MEDICATIONS: - aspirin - Multaq - digoxin - torsemide - levothyroxine - folic acid - ferrous sulfate - Colace - allopurinol - metformin - methotrexate weekly - nitroglycerin - Januvia - Trulicity ALLERGIES: BETA-BLOCKERS, COUMADIN, INDOMETHACIN, SPIRONOLACTONE, REACTIONS ARE UNKNOWN. SOCIAL HISTORY: He resides at the assisted living facility at [facility]. He is a former smoker. FAMILY HISTORY: Noncontributory. REVIEW OF SYSTEMS: A 12-point review of systems was completed, all of which were negative except those listed in the HPI. VITAL SIGNS ON ADMISSION: T max 101.2, pulse 110, respirations 18, blood pressure 136/77, satting at 97% on room air. PHYSICAL EXAMINATION: GENERAL: This is an elderly male in no apparent distress. HEAD: Normocephalic atraumatic. EYES: Extraocular muscles intact, pupils equal, round, and reactive to light. NECK: Supple, no jugular venous pulse (JVP). LUNGS: He has diffuse crackles primarily at the bases with bronchial breath sounds, no wheezing. CARDIOVASCULAR: Regular rate and rhythm. He has a 2-3/6 murmur best heard at the lower left sternal border. ABDOMEN: Soft, nontender, nondistended. Positive bowel sounds, no rebound or guarding. EXTREMITIES: No pitting edema or calf tendernes.s SKIN: Appears to be intact. No rashes, lesions, or breakdowns. NEUROLOGIC: He is awake, alert and oriented times three, no focal deficits appreciated on the exam. LABORATORY DATA AND IMAGING COMPLETED IN THE EMERGENCY ROOM: White count of 13, hemoglobin 11, hematocrit 34, platelet count 164. Chemistries show BUN of 21, creatinine 1.64. Baseline creatinine of 1.3-1.4. Sodium 135, chloride 94, lactate 4.3. IMAGING: Chest x-ray was reviewed. He has diffuse interstitial markings/ the same when compared to previous, possible small left pleural effusion, possible blooming infiltrate in the left middle to left lower lobe. ASSESSMENT AND PLAN: 1. Sepsis likely secondary to pneumonia. Will get a CT of the chest to assess. Will place this patient on cefepime and azithromycin. Urine legionella, urine pneumococcal antigen. Sputum culture. Oxygen as needed to keep oxygen saturation greater than 94%, Tylenol as needed fevers. Given a small fluid challenge in the emergency room, will trend lactate until it normalizes. 2. Congestive heart failure. Systolic congestive heart failure. Possible mild exacerbation secondary to what appears to be a pneumonia. Will restrict in and out (I and O), daily weights, elevated the head of the bed, will send a basic metabolic profile (BMP). Will do two sets of troponins and two EKGs. Will keep the patient on telemetry. Will continue his home dose of Demadex 20 and 40. 3. Psoriasis. The patient is on methotrexate every weekly. This medication will be held for now. I am not certain of the last dates he received methotrexate. 4. Chronic pulmonary obstructive disease (COPD). Appears to be stable. DuoNebs as needed. Oxygen as needed. 5. Paroxysmal atrial fibrillation. Appears to be in sinus. The patient is not on anticoagulation, the reason is unclear. Will continue his Multaq and digoxin. 6. Diabetes. Will hold Trulicity, as well as metformin and Januvia. Will place the patient on insulin sliding scale in the morning and in the evening. 7. Hypothyroidism. Will continue his Synthroid. Will also check TSH. 8. For obstructive sleep apnea on C-PAP. Will continue C-PAP, settings are 9 mL of water. 9. History of coronary artery disease status post percutaneous coronary insertion. The patient is apparently allergic to beta-blockers. Continue aspirin, nitroglycerin as needed . 10. Hyperlipidemia. Continue statin. 11. Benign prostatic hypertrophy. The patient is not on any medication. 12. Gout. Continue allopurinol. 13. Deep venous thrombosis prophylaxis (DVT). Heparin subcutaneous. 14. Gastrointestinal (GI) prophylaxis. Not indicated. 15. Diet. Cardiac diabetic fluid restriction to less than 2 liters per day. The patient is to be admitted to the floor with telemetry. The patient is DO NOT RESUSCITATE, DO NOT INTUBATE, (DNR/DNI) limited medical intervention. Trial of antibiotics. PAST SURGICAL HISTORY: 1. 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 2. Cataract surgery. 3. He has also had Percutaneous coronary intervention (PCI). 4. Transurethral resection of prostate (TURP).
[2018-06-19 06:14] LABS: HEMATOCRIT 26.6 % (42.0-52.0); HEMOGLOBIN 8.7 g/dl (13.5-17.5); MEAN CORPUSCULAR HEMOGLOBIN 33.6 pg (27.0-33.0); MEAN CORPUSCULAR HGB CONC 32.7 g/dl (32.0-36.5); MEAN CORPUSCULAR VOLUME 102.7 fl (80.0-96.0); PLATELET COUNT, AUTOMATED 108 10^3/uL (150-450); RED BLOOD COUNT 2.59 10^6/uL (4.30-6.10); WHITE BLOOD COUNT 9.2 10^3/uL (4.0-10.0)
[2018-06-19 06:47] LABS: CALCIUM LEVEL 8.1 MG/DL (8.8-10.2); CREATININE FOR GFR 1.37 MG/DL (0.70-1.30); GLOMERULAR FILTRATION RATE 52.8 (>35); POTASSIUM SERUM 4.5 MEQ/L (3.5-5.1)
[2018-06-19] MEDS: FOLIC ACID 1 MG TAB PO SCH (08:48)
[2018-06-19] MEDS: OMEPRAZOLE 20 MG CAP PO SCH (08:48)
[2018-06-19] MEDS: POTASSIUM CHLORIDE 10 MEQ SR TABLET PO SCH ×2 (08:49→20:18)
[2018-06-19] MEDS: TORSEMIDE 20 MG TAB PO SCH ×2 (08:50→13:16)
[2018-06-19] MEDS: DOCUSATE SODIUM 100 MG CAP PO SCH ×2 (08:51→20:17)
[2018-06-19] MEDS: ALLOPURINOL 100 MG TAB PO SCH (08:51)
[2018-06-19] MEDS: DIGOXIN 0.125 MG TAB PO SCH (08:51)
[2018-06-19] MEDS: DRONEDARONE 400 MG TAB (MULTAQ) PO SCH ×2 (08:52→20:18)
[2018-06-19] MEDS: OMEGA-3 1000MG CAPSULE PO SCH ×2 (08:52→20:17)
[2018-06-19] MEDS: MULTIVITAMINS/MINERALS THERAP 1 TAB PO SCH (08:52)
[2018-06-19] MEDS: ASPIRIN 81 MG ENTERIC TAB PO SCH (08:52)
[2018-06-19] MEDS: HumaLOG INSULIN (NovoLOG) PER UNIT SC SCH ×4 (08:57→21:22)
[2018-06-19 10:45] VITALS: BP 107/55
[2018-06-19] MEDS: ACETAMINOPHEN TAB 650MG DOSE (2X325MG) PO PRN ×2 (10:45→22:38)
[2018-06-19] MEDS: IPRATROPIUM 0.5MG/ALBUTEROL 2.5MG INH SOL UD 3ML (DUONEB)(J7620) NEB PRN ×2 (11:24→20:33)
[2018-06-19 14:00] VITALS: BP 98/42
--- NOTE | 2018-06-19 14:15 | REP ---
PORTABLE CHEST, ONE VIEW: HISTORY: Shortness of breath. COMPARISON: 06/17/2018 A diffuse increase in interstitial markings is present in the lungs consistent with chronic interstitial fibrosis. Patchy density is present in the left lower lobe consistent with an infiltrate. The heart is normal in size. The pulmonary vasculature is normal in appearance. IMPRESSION: 1. Chronic interstitial fibrosis. 2. Left lower lobe infiltrate. Electronically Signed by Suleman Moore MD 06/19/2018 02:20 P
--- NOTE | 2018-06-19 15:53 | IPNPDOC ---
Text Note Date of Service The patient was seen on 06/19/18. NOTE Subjective: Patient is an 82-year-old male with a PMHx of Systolic CHF (EF: 45%), Paroxysmal A. fib (on Digoxin), COPD, REBEKAH on CPAP, DLP, DM2, Hypothyroidism, BPH, Gout, Psoriasis, GERD who presented to the ER with complaints of shortness of breath and cough. In the emergency room, patient was found to have a pneumonia and was admitted to hospitalist service for further evaluation and treatment. Patient was seen and examined at the bedside. Patient notes that they're feeling relatively fine this morning. They deny any chest pain or palpitations. They note that her breathing is doing better. He reported significant cough. He denies any nausea, vomiting, abdominal pain, constipation, diarrhea or discomfort with urination. Objective: Vitals (See below) General: Lying in bed, no acute distress, comfortable, Awake / Alert HEENT: NC, AT CVS: RRR, +S1S2 Lungs: Fair air entry b/l, left lower lobe rhonchi appreciated, mild crackles at right lung base. No appreciable wheezing Abdomen: Soft, ND, NT Extremities: - Edema, - Calf tenderness Assessment and plan: Sepsis - likely 2/2 CAP - Presented to the ER with complaint of short of breath and productive cough - Auscultation. Does appear to have rhonchi at left lung base - s/p Leukocytosis; s/p Lactic acidosis - Blood cultures 06/17: No growth at 24 hours - CT chest 06/18: Diffuse coarse interstitial lung disease, most likely chronic in nature. However, it is difficult to exclude an acute pneumonitis. Clinical correlation is needed. No consolidation. No significant pleural effusions. Cardiomegaly. Dilated pulmonary artery segments, which may indicate pulmonary arterial hypertension. - CXR 06/19: 1. Chronic interstitial fibrosis. 2. Left lower lobe infiltrate. - c/w Ceftriaxone and Azithromycin (Day #2) Shortness of breath - possibly 2/2 above; possibly 2/2 fluid overload - possibly 2/2 CHF - s/p IV fluid hydration - Imaging does show increasing interstitial infiltrates - possibly could be from fluids - s/p IV fluid hydration - Will get ECHO - Diuretics have been restarted at home dose; c/w Torsemide Psoriasis - Hold Methotrexate Paroxysmal A. fib - c/w rate / rhythm control with Digoxin - Currently not on full anticoagulation - c/w ASA COPD - no evidence of exacerbation - c/w inhaled therapy as ordered REBEKAH on CPAP - may use own CPAP DLP - c/w Simvastatin DM2 - c/w ISS Hypothyroidism - c/w Levothyroxine BPH - Currently not on medications Gout / Psoriasis - Methotrexate on hold GERD - c/w Omeprazole DVT prophylaxis - c/w Heparin Code status: - DNR / DNI VS,Fishbone, I+O VS, Fishbone, I+O Laboratory Tests 06/18/18 16:14 Calcium Level 8.4 #L 06/19/18 05:27 Calcium Level 8.1 L, Red Blood Count 2.59 L, Mean Corpuscular Volume 102.7 H, Mean Corpuscular Hemoglobin 33.6 H, Mean Corpuscular Hemoglobin Concent 32.7, Red Cell Distribution Width 15.7 H Vital Signs Date Time Temp Pulse Resp B/P (MAP) Pulse Ox O2 Delivery O2 Flow Rate FiO2 06/19/18 14:00 98.6 72 18 98/42 (60) 91 Nasal Cannula 3.0 I&O- Last 24 Hours up to 6 AM 06/19/18 06:00 Intake Total 2265 ml Output Total 1400 ml Balance 865 ml MAYRA MUSA MD Jun 19, 2018 15:53
[2018-06-19] MEDS: FERROUS GLUCONATE 324 MG TAB PO SCH (18:25)
[2018-06-19] MEDS: SIMVASTATIN 10 MG TAB PO SCH (20:18)
[2018-06-19 21:27] VITALS: BP 106/52
[2018-06-19 22:00] VITALS: BP 116/58
[2018-06-19 23:20] VITALS: BP 96/54
[2018-06-19] MEDS ORDERED: NS 500 ML IV ONE (23:45)
--- NOTE | 2018-06-19 23:47 | IPNPDOC ---
Text Note Date of Service The patient was seen on 06/19/18. NOTE Paged by nurse at 11:40 pm on 06/19/18. Pt had 1 episode of hemoptysis, fever spike trending up. pt seen and examined at bedside on his CPAP with 4 L of oxygen bled in. will broaden coverage after 48 hrs of atbx, fever spikes going up, also now w/ hemoptysis and increase oxygen demands, will assess for PE 1. acute hypoxic resp failure: possibly 2/2 worsening sepsis from PNA ( already 48 hrs atbx), r/o PE: CTA chest, ceftriaxone and azithromycin d/c. will start Cefepime and doxy ( [facility] coverage) VS,Fishbone, I+O VS, Fishbone, I+O Laboratory Tests 06/19/18 05:27 Red Blood Count 2.59 L, Mean Corpuscular Volume 102.7 H, Mean Corpuscular Hemoglobin 33.6 H, Mean Corpuscular Hemoglobin Concent 32.7, Red Cell Distribution Width 15.7 H, Calcium Level 8.1 L Vital Signs Date Time Temp Pulse Resp B/P (MAP) Pulse Ox O2 Delivery O2 Flow Rate FiO2 06/19/18 23:28 101.3 06/19/18 22:39 19 Nasal Cannula 4.0 06/19/18 22:00 81 116/58 (97) 90 I&O- Last 24 Hours up to 6 AM 06/19/18 06:00 Intake Total 2265 ml Output Total 1400 ml Balance 865 ml TUESDAY,DAVID DELUNA Jun 19, 2018 23:47
[2018-06-20] MEDS ORDERED: DOXYCYCLINE HYCLATE 100 MG in D5W MINI-BAG PLUS 100 ML IV SCH ×2
[2018-06-20] MEDS ORDERED: ISOVUE-370 76% 100ML VIAL (Q9967) As Ordered ONE (00:04)
[2018-06-20 01:11] VITALS: BP 96/54
--- NOTE | 2018-06-20 01:16 | REPVR ---
EXAM: CT Angiography Chest With Contrast EXAM DATE/TIME: 06/19/2018 11:42 PM CLINICAL HISTORY: 82 years old, male; Pain; Chest pain; Additional info: Assess for pe TECHNIQUE: Axial computed tomographic angiography images of the chest with intravenous contrast using CT angiography protocol. All CT scans at this facility use at least one of these dose optimization techniques: automated exposure control; mA and/or kV adjustment per patient size (includes targeted exams where dose is matched to clinical indication); or iterative reconstruction. Coronal and sagittal reformatted images were created and reviewed. MIP reconstructed images were created and reviewed. CONTRAST: 75 ml of iso administered intravenously. COMPARISON: CT Chest without contrast 06/18/2018 12:58 AM FINDINGS: Pulmonary arteries: The main pulmonary artery measures 33 mm. No pulmonary embolism is identified. Aorta: The ascending thoracic aorta measures 39 mm. Lungs: Bilateral pulmonary infiltrates with interstitial prominence and cystic changes. Pleural space: Trace right pleural effusion and minimal left pleural effusion. Heart: Coronary artery calcifications are present. Lymph nodes: Small mediastinal nodes which are upper normal. Bones/joints: Unremarkable. No acute fracture. Soft tissues: Unremarkable. IMPRESSION: 1. Bilateral pulmonary infiltrates which are increased since 06/18/2018 with some interstitial prominence and bilateral cystic changes which may reflect pulmonary fibrosis. Findings may reflect overlying fluid overload or congestive failure. 2. Minimal left and trace right pleural effusions which are increased. 3. Otherwise negative CTA chest. No pulmonary embolism is identified. Electronically signed by: Dayo Spencer On 06/20/2018 01:15:19 AM
[2018-06-20] MEDS: CEFEPIME HCL 1 GM in D5W MINI-BAG PLUS 50 ML IV SCH ×3 (01:18→23:05)
--- NOTE | 2018-06-20 01:40 | IPNPDOC ---
Text Note Date of Service The patient was seen on 06/20/18. NOTE CTA: no PE, worsening PNA with some fluid overload. will give 1 X dose of lasix for now. will change from doxy/cefepime to Vanco/cefepime. VS,Fishbone, I+O VS, Fishbone, I+O Laboratory Tests 06/19/18 05:27 Red Blood Count 2.59 L, Mean Corpuscular Volume 102.7 H, Mean Corpuscular Hemoglobin 33.6 H, Mean Corpuscular Hemoglobin Concent 32.7, Red Cell Distribution Width 15.7 H, Calcium Level 8.1 L Vital Signs Date Time Temp Pulse Resp B/P (MAP) Pulse Ox O2 Delivery O2 Flow Rate FiO2 06/20/18 01:11 100.0 83 16 96/54 (68) 90 NIPPV (BIPAP/CPAP) 4.0 I&O- Last 24 Hours up to 6 AM 06/20/18 06:00 Intake Total 1550 ml Output Total 2475 ml Balance -925 ml TUESDAY,DAVID DELUNA Jun 20, 2018 01:40
[2018-06-20] MEDS ORDERED: FUROSEMIDE 40 MG/4 ML VIAL (J1940) IV ONE (01:45)
[2018-06-20 02:00] VITALS: BP_SYST 81; BP_SYST 91; BP_DIAS 54
[2018-06-20] MEDS ORDERED: VANCOMYCIN HCL 1,000 MG, VIAL MATE ADAPTER 1 EACH in D5W 250 ML IV ONE (02:00)
[2018-06-20 02:23] VITALS: BP 91/54
--- NOTE | 2018-06-20 05:29 | PHACANCOPD ---
PHARMACY VANCOMYCIN DOSING Pt Demographics Demographics Patient Age:82 , Weight:80.000 , Gender: male Adjusted Body Weight Date: 06/20/18, Adjusted Body Weight: [80] KG.ACTUAL WT Vancomycin Vancomycin indication: PNEUMONIA Vancomycin Target Ranges: 15-20 mcg/ml Vancomycin Load Y/N: No Load Dose Date Time Vancomycin Load Dose: Date: Time: Vancomycin Dose Date: 06/20/18. Current Vancomycin Dose: [1 GM q24h] Intermittent Dosing?: No Labs Labs Laboratory Tests 06/19/18 05:27 Red Blood Count 2.59 L, Mean Corpuscular Volume 102.7 H, Mean Corpuscular Hemoglobin 33.6 H, Mean Corpuscular Hemoglobin Concent 32.7, Red Cell Distribution Width 15.7 H, Calcium Level 8.1 L Micro Microbiology 06/17/18 Blood Culture - Preliminary, Resulted No Growth after 48 hours. All Specime... 06/18/18 Urine Culture, Received Pending Creatinine Clearance Date:06/20/18. Creatinine Clearance: [46.2]. Pending Labs Vancomycin trough due 06/21@1300 Assessment and Plan Maintaining Current Dose?: Yes Reason for dose change: No Dose Change Pharmacist Note Pharmacist Note Date: 06/20/18. Pharmacist note:Worsening pneumonia SX-Prescriber d/c azithromycin/ceftriaxone and ordered cefepime 1 gm Q12h and Vancomycin per Pharmacy consult. Patient SCR= 1,37, Calculated CRCl=46.2.Vancomycin 1 gm given 06/20@0200, then will continue with a D74dlrg regimen(d/t patient age)to begin 06/20@1400.First trough is scheduled for 06/21@1300-prior to the third dose-will continue to follow labs and will make Vancomycin adjustments as needed RADHA [facility]EE[facility]ES [facility] Jun 20, 2018 05:28
[2018-06-20 06:00] VITALS: BP 95/53
[2018-06-20 06:33] LABS: HEMATOCRIT 26.5 % (42.0-52.0); HEMOGLOBIN 8.6 g/dl (13.5-17.5); MEAN CORPUSCULAR HEMOGLOBIN 33.3 pg (27.0-33.0); MEAN CORPUSCULAR HGB CONC 32.5 g/dl (32.0-36.5); MEAN CORPUSCULAR VOLUME 102.7 fl (80.0-96.0); RED BLOOD COUNT 2.58 10^6/uL (4.30-6.10); WHITE BLOOD COUNT 7.4 10^3/uL (4.0-10.0)
[2018-06-20 06:38] LABS: PLATELET COUNT, AUTOMATED 94 10^3/uL (150-450)
[2018-06-20] MEDS: LEVOTHYROXINE 125MCG TABLET (0.125MG) PO SCH (06:42)
[2018-06-20] MEDS: MORPHINE 15 MG SA TAB PO SCH ×2 (06:43→21:44)
[2018-06-20 06:49] LABS: CALCIUM LEVEL 8.3 MG/DL (8.8-10.2); CREATININE FOR GFR 1.49 MG/DL (0.70-1.30); GLOMERULAR FILTRATION RATE 47.9 (>35); POTASSIUM SERUM 3.9 MEQ/L (3.5-5.1)
[2018-06-20 08:09] LABS: ABG BASE EXCESS 4.1 (-2.0-2.0); ABG HCO3 27.3 MEQ/L (22.0-26.0); ABG O2 SATURATION 96.4 % (95.0-99.0); ABG PARTIAL PRESSURE CO2 35.7 mmHg (35.0-45.0); ABG PARTIAL PRESSURE O2 84.6 mmHg (75.0-100.0); ABG STANDARD HCO3 28.2 MEQ/L (22.0-26.0); ABG TOTAL CO2 28.4 MEQ/L (23.0-31.0); ABG pH (ARTERIAL) 7.502 UNITS (7.350-7.450)
[2018-06-20] MEDS: HumaLOG INSULIN (NovoLOG) PER UNIT SC SCH ×4 (08:17→21:45)
[2018-06-20] MEDS: TORSEMIDE 20 MG TAB PO SCH ×2 (08:18→13:44)
[2018-06-20] MEDS: OMEGA-3 1000MG CAPSULE PO SCH ×2 (08:18→21:44)
[2018-06-20] MEDS: POTASSIUM CHLORIDE 10 MEQ SR TABLET PO SCH ×2 (08:18→21:44)
[2018-06-20] MEDS: FOLIC ACID 1 MG TAB PO SCH (08:18)
[2018-06-20] MEDS: ALLOPURINOL 100 MG TAB PO SCH (08:18)
[2018-06-20] MEDS: ASPIRIN 81 MG ENTERIC TAB PO SCH (08:18)
[2018-06-20] MEDS: MULTIVITAMINS/MINERALS THERAP 1 TAB PO SCH (08:19)
[2018-06-20] MEDS: DRONEDARONE 400 MG TAB (MULTAQ) PO SCH ×2 (08:19→21:44)
[2018-06-20] MEDS: DIGOXIN 0.125 MG TAB PO SCH (08:19)
[2018-06-20] MEDS: DOCUSATE SODIUM 100 MG CAP PO SCH ×2 (08:19→21:44)
[2018-06-20] MEDS: OMEPRAZOLE 20 MG CAP PO SCH (08:19)
--- NOTE | 2018-06-20 10:58 | IPNPDOC ---
Text Note Date of Service The patient was seen on 06/20/18. NOTE Subjective: Patient seen and examined at bedside. Overnight events significant for worsening SOB with hemoptysis. CTA obtained, ABx escalated. This morning patient endorses productive cough, no other medical complaints. Objective: Vitals (See below) General: Lying in bed, no acute distress, comfortable, Awake / Alert HEENT: NC, AT, edentulous CVS: irregular, +S1S2, systolic murmur Lungs: Fair air entry b/l, left lower lobe rhonchi appreciated, b/l crackles Abdomen: Soft, ND, NT Extremities: - Edema, - Calf tenderness A/P: Patient is an 82-year-old male with a PMHx of Systolic CHF (EF: 45%), Paroxysmal A. fib (on Digoxin), COPD, REBEKAH on CPAP, DLP, DM2, Hypothyroidism, BPH, Gout, Psoriasis, GERD who presented to the ER with complaints of shortness of breath and cough. In the emergency room, patient was found to have a pneumonia and was admitted to hospitalist service for further evaluation and treatment. #Sepsis - likely 2/2 CAP - antibiotics escalated to vanc/cefepime - MRSA screen pending - SCx pending #Shortness of breath - possibly 2/2 above; possibly 2/2 fluid overload - possibly 2/2 CHF - Imaging does show increasing interstitial infiltrates - possibly could be from fluids - s/p IV fluid hydration - TTE pending - Diuretics have been restarted at home dose; c/w Torsemide - received one dose IV lasix overnight #Psoriasis - MTX on hold #Paroxysmal A. fib - c/w rate / rhythm control with Digoxin - check dig level - Currently not on full anticoagulation - c/w ASA #COPD - no evidence of exacerbation - c/w inhaled therapy as ordered #REBEKAH on CPAP - may use own CPAP #DLP - c/w Simvastatin #DM2 - c/w ISS #Hypothyroidism - c/w Levothyroxine #BPH - Currently not on medications #Gout / Psoriasis - Methotrexate on hold #GERD - c/w Omeprazole #DVT prophylaxis - c/w Heparin Code status: - DNR / DNI VS,Fishbone, I+O VS, Fishbone, I+O Laboratory Tests 06/20/18 05:44 Red Blood Count 2.58 L, Mean Corpuscular Volume 102.7 H, Mean Corpuscular Hemoglobin 33.3 H, Mean Corpuscular Hemoglobin Concent 32.5, Red Cell Distribution Width 15.9 H, Calcium Level 8.3 L Vital Signs Date Time Temp Pulse Resp B/P (MAP) Pulse Ox O2 Delivery O2 Flow Rate FiO2 06/20/18 08:19 95 06/20/18 06:43 12 93 Nasal Cannula 4.0 06/20/18 06:00 96.6 95/53 (67) I&O- Last 24 Hours up to 6 AM 06/20/18 06:00 Intake Total 2120 ml Output Total 2600 ml Balance -480 ml ALEX HENDRICKS MD Jun 20, 2018 10:58
[2018-06-20 11:26] LABS: DIGOXIN LEVEL 1.4 NG/ML (0.5-2.0); MAGNESIUM LEVEL 2.1 MG/DL (1.8-2.4)
[2018-06-20] MEDS: VANCOMYCIN HCL 1,000 MG, VIAL MATE ADAPTER 1 EACH in D5W 250 ML IV SCH (13:45)
[2018-06-20 14:00] VITALS: BP 115/55
[2018-06-20] MEDS: FERROUS GLUCONATE 324 MG TAB PO SCH (18:15)
--- NOTE | 2018-06-20 19:21 | ECHO ---
DATE OF PROCEDURE: 06/20/2018 REFERRING PHYSICIAN: Dr. Terrence Castillo INDICATION: Dyspnea. Height 188 cm, weight 80 kg. DIMENSIONS: IVS: 1.1 LV: 5.4 LVPW: 1.0 LA: 3.5 Aorta: 3.5 IVC: 2.3 Ascending aorta: 3.9 FINDINGS: The study is of acceptable technical quality. There are good parasternal views but very limited apical views and decent subcostal views. The patient is in atrial fibrillation with controlled rate. Left ventricle is normal size and normal systolic function with estimated left ventricular ejection fraction (LVEF) 60-65%. Based on limitation of the study, subtle wall motion abnormalities can easily be missed. Right ventricle also appears to be of grossly normal size and systolic function. Left atrium is severely enlarged. Right atrium was poorly seen but probably is at least mildly enlarged. Aortic valve has three leaflets. It is heavily calcified, and there is restriction of leaflet mobility. By 2D imaging, I estimate approximately moderate aortic stenosis. There are also degenerative abnormalities of mitral valve with mitral annular calcifications but mobility of leaflets is preserved. Tricuspid valve appears normal. Pulmonic valve also appears normal. No pericardial effusion is noted. Inferior vena cava is dilated, and there is only minimal collapse with respiration indicative of high central venous pressure. Aortic root is normal. Visualized segment of ascending aorta measures 3.9 cm, which is mildly enlarged. Aortic arch was not well seen. Abdominal aorta appears normal. Doppler interrogation of aortic valve reveals no insufficiency and approximately moderate stenosis. Peak gradient across the valve was 47 and mean gradient 24. Calculated aortic valve area is 0.7 which is certainly inaccurate. Overall I do estimate approximately moderate aortic stenosis. There is mild mitral insufficiency and mild tricuspid insufficiency. Calculated pulmonary artery pressure is probably in 40s corresponding to moderate pulmonary hypertension. Pulmonic valve is functionally competent. Evaluation of diastolic function is inconclusive due to underlying atrial fibrillation. CONCLUSIONS: 1. Study is of acceptable technical quality. 2. Normal left ventricular (LV) size with grossly preserved LV systolic function. 3. Moderate aortic stenosis (mean gradient 24). 4. Mild mitral and tricuspid insufficiency. 5. Elevated central venous pressure and likely moderate pulmonary hypertension. COMMENT: Subacute bacterial endocarditis (SBE) prophylaxis is not recommended.
[2018-06-20] MEDS: SIMVASTATIN 10 MG TAB PO SCH (21:44)
[2018-06-20 22:00] VITALS: BP 115/59
[2018-06-20] MEDS: ACETAMINOPHEN TAB 650MG DOSE (2X325MG) PO PRN (22:02)
[2018-06-21] MEDS: LEVOTHYROXINE 125MCG TABLET (0.125MG) PO SCH (05:58)
[2018-06-21] MEDS: MORPHINE 15 MG SA TAB PO SCH ×2 (05:59→21:04)
[2018-06-21 06:00] VITALS: BP 107/62
[2018-06-21 06:34] LABS: HEMATOCRIT 28.6 % (42.0-52.0); HEMOGLOBIN 9.5 g/dl (13.5-17.5); MEAN CORPUSCULAR HEMOGLOBIN 34.1 pg (27.0-33.0); MEAN CORPUSCULAR HGB CONC 33.2 g/dl (32.0-36.5); MEAN CORPUSCULAR VOLUME 102.5 fl (80.0-96.0); RED BLOOD COUNT 2.79 10^6/uL (4.30-6.10); WHITE BLOOD COUNT 10.3 10^3/uL (4.0-10.0)
[2018-06-21 06:36] LABS: PLATELET COUNT, AUTOMATED 96 10^3/uL (150-450)
[2018-06-21 06:42] LABS: CALCIUM LEVEL 8.6 MG/DL (8.8-10.2); CREATININE FOR GFR 1.54 MG/DL (0.70-1.30); GLOMERULAR FILTRATION RATE 46.2 (>35); POTASSIUM SERUM 3.8 MEQ/L (3.5-5.1)
[2018-06-21] MEDS: HumaLOG INSULIN (NovoLOG) PER UNIT SC SCH ×4 (08:09→20:37)
[2018-06-21] MEDS: TORSEMIDE 20 MG TAB PO SCH (08:10)
[2018-06-21] MEDS: DOCUSATE SODIUM 100 MG CAP PO SCH ×2 (08:10→21:02)
[2018-06-21] MEDS: TAMSULOSIN 0.4 MG CAP PO SCH (08:10)
[2018-06-21] MEDS: ALLOPURINOL 100 MG TAB PO SCH (08:10)
[2018-06-21] MEDS: FOLIC ACID 1 MG TAB PO SCH (08:10)
[2018-06-21] MEDS: OMEPRAZOLE 20 MG CAP PO SCH (08:10)
[2018-06-21] MEDS: POTASSIUM CHLORIDE 10 MEQ SR TABLET PO SCH ×2 (08:10→21:02)
[2018-06-21] MEDS: ASPIRIN 81 MG ENTERIC TAB PO SCH (08:10)
[2018-06-21] MEDS: MULTIVITAMINS/MINERALS THERAP 1 TAB PO SCH (08:10)
[2018-06-21] MEDS: DRONEDARONE 400 MG TAB (MULTAQ) PO SCH ×2 (08:11→21:03)
[2018-06-21] MEDS: DIGOXIN 0.125 MG TAB PO SCH (08:11)
[2018-06-21] MEDS: OMEGA-3 1000MG CAPSULE PO SCH ×2 (08:11→21:02)
--- NOTE | 2018-06-21 10:20 | IPNPDOC ---
Text Note Date of Service The patient was seen on 06/21/18. NOTE Subjective: Patient seen and examined at bedside. No new medical complaints. Still complains of cough, occasionally productive of clear sputum Objective: Vitals (See below) General: Lying in bed, no acute distress, comfortable, Awake / Alert HEENT: NC, AT, edentulous CVS: irregular, +S1S2, systolic murmur Lungs: Fair air entry b/l, left lower lobe rhonchi appreciated, b/l crackles Abdomen: Soft, ND, NT Extremities: - Edema, - Calf tenderness A/P: Patient is an 82-year-old male with a PMHx of Systolic CHF (EF: 45%), Paroxysmal A. fib (on Digoxin), COPD, REBEKAH on CPAP, DLP, DM2, Hypothyroidism, BPH, Gout, Psoriasis, GERD who presented to the ER with complaints of shortness of breath and cough. In the emergency room, patient was found to have a pneumonia and was admitted to hospitalist service for further evaluation and treatment. #Sepsis - antibiotics escalated to vanc/cefepime - MRSA screen pending - SCx pending #Shortness of breath - possibly 2/2 above; possibly 2/2 fluid overload - possibly 2/2 CHF - Imaging does show increasing interstitial infiltrates - possibly could be from fluids - s/p IV fluid hydration - TTE noted - started on IV lasix - alegria catheter to monitor I/O's, daily weights, transfer to PCU #Mod - d/w cardiology - not candidate for valve replacement at this time, unlikely etiology for his SOB #Psoriasis - MTX on hold #Paroxysmal A. fib - c/w rate / rhythm control with Digoxin - check dig level - Currently not on full anticoagulation - c/w ASA #COPD - no evidence of exacerbation - c/w inhaled therapy as ordered #REBEKAH on CPAP - may use own CPAP #DLP - c/w Simvastatin #DM2 - c/w ISS #Hypothyroidism - c/w Levothyroxine #BPH - Currently not on medications #Gout / Psoriasis - MTX on hold #GERD - c/w Omeprazole #DVT prophylaxis - c/w Heparin #Code Status - DNR / DNI Dispo: transfer to PCU, IV lasix, I/O's, daily weight, repeat CXR pending, guarded prognosis VS,Fishbone, I+O VS, Fishbone, I+O Laboratory Tests 06/20/18 16:02 06/21/18 06:06 Red Blood Count 2.79 L, Mean Corpuscular Volume 102.5 H, Mean Corpuscular Hemoglobin 34.1 H, Mean Corpuscular Hemoglobin Concent 33.2, Red Cell Distribution Width 15.9 H, Calcium Level 8.6 L Vital Signs Date Time Temp Pulse Resp B/P (MAP) Pulse Ox O2 Delivery O2 Flow Rate FiO2 06/21/18 08:11 92 06/21/18 06:00 98.0 15 107/62 (77) 96 Nasal Cannula 4.0 I&O- Last 24 Hours up to 6 AM 06/21/18 06:00 Intake Total 1750 ml Output Total 3055 ml Balance -1305 ml ALEX HENDRICKS MD Jun 21, 2018 10:20
--- NOTE | 2018-06-21 11:08 | REP ---
Chest two views HISTORY: Shortness of breath Comparison: 06/19/2018 A diffuse increase in interstitial markings is present in the lungs consistent with chronic interstitial fibrosis. Patchy density is present in the lower lobes consistent with infiltrates that are new on the right and unchanged on the left. The heart is normal in size. The pulmonary vasculature is normal in appearance. The bony structure is intact. IMPRESSION: 1. Chronic interstitial fibrosis. 2. Bilateral lower lobe infiltrates new on the right and unchanged on the left. Electronically Signed by Suleman Moore MD 06/21/2018 10:59 A
[2018-06-21 12:00] VITALS: BP 125/67
[2018-06-21] MEDS: FUROSEMIDE 20 MG/2 ML VIAL (J1940) IV SCH ×2 (12:34→18:44)
[2018-06-21] MEDS: ACETAMINOPHEN TAB 650MG DOSE (2X325MG) PO PRN ×2 (12:38→19:39)
[2018-06-21] MEDS: CEFEPIME HCL 1 GM in D5W MINI-BAG PLUS 50 ML IV SCH ×2 (12:55→23:54)
--- NOTE | 2018-06-21 15:01 | PHACANCOPD ---
PHARMACY VANCOMYCIN DOSING Pt Demographics Demographics Patient Age:82 , Weight:79.800 , Gender: male Adjusted Body Weight Date: 06/20/18, Adjusted Body Weight: [80] KG.ACTUAL WT Vancomycin Vancomycin indication: PNEUMONIA Vancomycin Target Ranges: 15-20 mcg/ml Vancomycin Load Y/N: No Load Dose Date Time Vancomycin Load Dose: Date: Time: Vancomycin Dose Date: 06/20/18. Current Vancomycin Dose: [1 GM q24h] Intermittent Dosing?: No Labs Micro Microbiology 06/20/18 Blood Culture - Preliminary, Resulted No growth after 24 hours . All specim... 06/20/18 Blood Culture - Preliminary, Resulted No growth after 24 hours . All specim... 06/17/18 Blood Culture - Preliminary, Resulted No Growth after 72 hours. All specime... 06/20/18 Gram Stain - Final, Resulted 06/20/18 Sputum Culture, Resulted Pending 06/20/18 MRSA Screen - Final, Complete 06/18/18 Urine Culture - Final, Complete Creatinine Clearance Date:06/20/18. Creatinine Clearance: [46.2]. Pending Labs Vancomycin trough due 06/21@1300 Assessment and Plan Maintaining Current Dose?: No Reason for dose change: No Dose Change Pharmacist Note Pharmacist Note 06/21/18: Day #2 IV vancomycin therapy for the treatment of pneumonia. Trough level today resulted at 10.4mcg/ml. We will increase the frequency of the patients' regimen from 1g IV Q24H to 1g IV Q18H, and draw a follow-up trough level 06/23/18 @1900. Scr remains stable at 1.54 today from 1.49 yesterday, and it is noted that the patient is on diuretics. We will continue to monitor the patients' renal function and adjust dosing further if needed. Date: 06/20/18. Pharmacist note:Worsening pneumonia SX-Prescriber d/c azithromycin/ceftriaxone and ordered cefepime 1 gm Q12h and Vancomycin per Pharmacy consult. Patient SCR= 1,37, Calculated CRCl=46.2.Vancomycin 1 gm given 06/20@0200, then will continue with a [id number] regimen(d/t patient age)to begin 06/20@1400.First trough is scheduled for 06/21@1300-prior to the third dose-will continue to follow labs and will make Vancomycin adjustments as needed [facility] Jun 21, 2018 15:01
[2018-06-21] MEDS: VANCOMYCIN HCL 1,000 MG, VIAL MATE ADAPTER 1 EACH in D5W 250 ML IV SCH (15:06)
[2018-06-21 15:56] VITALS: BP 101/56
[2018-06-21] MEDS: FERROUS GLUCONATE 324 MG TAB PO SCH (17:27)
[2018-06-21 20:00] VITALS: BP 122/50
[2018-06-21] MEDS: SIMVASTATIN 10 MG TAB PO SCH (21:03)
[2018-06-22] VITALS: BP 130/70
[2018-06-22 00:07] LABS: BODY FLUID CULTURE Not Indicated (.); LEGIONELLA ANTIGEN URINE Negative (Negative); ORGANISM ID Not indicated. (.); SPECIMEN SOURCE Urine (.); URINE STREP PNEUMONIAE ANTIGEN Negative (Negative)
[2018-06-22] MEDS: FUROSEMIDE 20 MG/2 ML VIAL (J1940) IV SCH ×3 (03:46→18:11)
[2018-06-22] MEDS: ACETAMINOPHEN TAB 650MG DOSE (2X325MG) PO PRN ×2 (03:53→13:08)
[2018-06-22 04:00] VITALS: BP 124/70
[2018-06-22 05:54] LABS: HEMATOCRIT 27.1 % (42.0-52.0); HEMOGLOBIN 9.2 g/dl (13.5-17.5); MEAN CORPUSCULAR HEMOGLOBIN 33.6 pg (27.0-33.0); MEAN CORPUSCULAR HGB CONC 33.9 g/dl (32.0-36.5); MEAN CORPUSCULAR VOLUME 98.9 fl (80.0-96.0); PLATELET COUNT, AUTOMATED 108 10^3/uL (150-450); RED BLOOD COUNT 2.74 10^6/uL (4.30-6.10); WHITE BLOOD COUNT 11.9 10^3/uL (4.0-10.0)
[2018-06-22] MEDS: LEVOTHYROXINE 125MCG TABLET (0.125MG) PO SCH (05:58)
[2018-06-22] MEDS: MORPHINE 15 MG SA TAB PO SCH ×2 (06:00→21:09)
[2018-06-22 06:20] LABS: CALCIUM LEVEL 8.6 MG/DL (8.8-10.2); CREATININE FOR GFR 1.33 MG/DL (0.70-1.30); GLOMERULAR FILTRATION RATE 54.7 (>35); POTASSIUM SERUM 3.6 MEQ/L (3.5-5.1)
--- NOTE | 2018-06-22 07:56 | IPNPDOC ---
Text Note Date of Service The patient was seen on 06/22/18. NOTE Subjective: Patient seen and examined at bedside. No new medical complaints. No acute overnight events reported Objective: Vitals (See below) General: Lying in bed, no acute distress, comfortable, elderly, frail HEENT: NC, AT, edentulous CVS: irregular, +S1S2, systolic murmur Lungs: b/l basilar crackles Abdomen: Soft, ND, NT Extremities: no edema A/P: Patient is an 82-year-old male with a PMHx of Systolic CHF (EF: 45%), Paroxysmal A. fib (on Digoxin), COPD, REBEKAH on CPAP, DLP, DM2, Hypothyroidism, BPH, Gout, Psoriasis, GERD who presented to the ER with complaints of shortness of breath and cough. In the emergency room, patient was found to have a pneumonia and was admitted to hospitalist service for further evaluation and treatment. #Sepsis - resolved #lactic acidosis/hypotension - secondary to sepsis - resolved #Shortness of breath - likely secondary to fluid overload complicated with pneumonia - continue with cefepime - vanco discontinued given negative MRSA screen - SCx pending, respiratory panel pending - repeat CXR bilateral pleural effusion - right sided is new - TTE noted - moderate - discussed with cardiology - not due to valvulopathy - I/O's, daily weights #acute congestive heart failure with preserved ejection fraction - continue with IV lasix as above - daily i/o's, daily weights #Moderate - d/w cardiology - not candidate for valve replacement at this time, unlikely etiology for his SOB #Psoriasis - MTX on hold #Paroxysmal A. fib - c/w rate / rhythm control with Digoxin - currently not on full anticoagulation - c/w ASA #COPD - no evidence of exacerbation - c/w inhaled therapy as ordered #REBEKAH on CPAP - may use own CPAP #DLP - c/w Simvastatin #DM2 - c/w ISS #Hypothyroidism - c/w Levothyroxine #BPH - Currently not on medications #Gout / Psoriasis - MTX on hold #GERD - c/w Omeprazole #DVT prophylaxis - c/w Heparin #Code Status - DNR / DNI Dispo: IV lasix, I/O's, daily weights, guarded prognosis VS,Fishbone, I+O VS, Fishbone, I+O Laboratory Tests 06/22/18 05:43 Red Blood Count 2.74 L, Mean Corpuscular Volume 98.9 H, Mean Corpuscular Hemoglobin 33.6 H, Mean Corpuscular Hemoglobin Concent 33.9, Red Cell Distribution Width 15.4 H, Calcium Level 8.6 L Vital Signs Date Time Temp Pulse Resp B/P (MAP) Pulse Ox O2 Delivery O2 Flow Rate FiO2 06/22/18 06:00 18 06/22/18 04:00 97.6 83 124/70 (88) 93 NIPPV (BIPAP/CPAP) 06/21/18 20:00 4.0 I&O- Last 24 Hours up to 6 AM 06/22/18 06:00 Intake Total 1410 ml Output Total 2600 ml Balance -1190 ml ALEX HENDRICKS MD Jun 22, 2018 07:56
[2018-06-22 08:00] VITALS: BP 98/55
[2018-06-22] MEDS ORDERED: VANCOMYCIN HCL 1,000 MG, VIAL MATE ADAPTER 1 EACH in D5W 250 ML IV SCH (08:00)
[2018-06-22] MEDS: DOCUSATE SODIUM 100 MG CAP PO SCH ×2 (08:48→21:09)
[2018-06-22] MEDS: TAMSULOSIN 0.4 MG CAP PO SCH (08:48)
[2018-06-22] MEDS: HumaLOG INSULIN (NovoLOG) PER UNIT SC SCH ×4 (08:48→21:00)
[2018-06-22] MEDS: MULTIVITAMINS/MINERALS THERAP 1 TAB PO SCH (08:48)
[2018-06-22] MEDS: DIGOXIN 0.125 MG TAB PO SCH (08:49)
[2018-06-22] MEDS: ALLOPURINOL 100 MG TAB PO SCH (08:49)
[2018-06-22] MEDS: OMEGA-3 1000MG CAPSULE PO SCH ×2 (08:49→21:08)
[2018-06-22] MEDS: DRONEDARONE 400 MG TAB (MULTAQ) PO SCH ×2 (08:49→21:00)
[2018-06-22] MEDS: POTASSIUM CHLORIDE 10 MEQ SR TABLET PO SCH ×2 (08:49→21:08)
[2018-06-22] MEDS: OMEPRAZOLE 20 MG CAP PO SCH (08:50)
[2018-06-22] MEDS: ASPIRIN 81 MG ENTERIC TAB PO SCH (08:50)
[2018-06-22] MEDS: FOLIC ACID 1 MG TAB PO SCH (08:50)
[2018-06-22 11:45] VITALS: BP 113/61
[2018-06-22] MEDS: CEFEPIME HCL 1 GM in D5W MINI-BAG PLUS 50 ML IV SCH ×2 (12:02→22:07)
[2018-06-22 15:47] VITALS: BP 105/57
[2018-06-22] MEDS: FERROUS GLUCONATE 324 MG TAB PO SCH (18:11)
[2018-06-22 19:36] VITALS: BP 112/65
[2018-06-22] MEDS: SIMVASTATIN 10 MG TAB PO SCH (21:09)
[2018-06-23] VITALS (8 sets, daily range): BP systolic 77–118; BP diastolic 52–69
[2018-06-23] MEDS: FUROSEMIDE 20 MG/2 ML VIAL (J1940) IV SCH ×3 (02:40→18:31)
[2018-06-23] MEDS: LEVOTHYROXINE 125MCG TABLET (0.125MG) PO SCH (05:07)
[2018-06-23] MEDS: MORPHINE 15 MG SA TAB PO SCH ×2 (05:08→22:07)
[2018-06-23 05:15] LABS: HEMOGLOBIN 9.1 g/dl (13.5-17.5); MEAN CORPUSCULAR HEMOGLOBIN 33.2 pg (27.0-33.0); MEAN CORPUSCULAR HGB CONC 32.5 g/dl (32.0-36.5); MEAN CORPUSCULAR VOLUME 102.2 fl (80.0-96.0); PLATELET COUNT, AUTOMATED 131 10^3/uL (150-450); RED BLOOD COUNT 2.74 10^6/uL (4.30-6.10)
[2018-06-23 05:30] LABS: CALCIUM LEVEL 8.5 MG/DL (8.8-10.2); CREATININE FOR GFR 1.38 MG/DL (0.70-1.30); GLOMERULAR FILTRATION RATE 52.4 (>35); POTASSIUM SERUM 3.8 MEQ/L (3.5-5.1)
--- NOTE | 2018-06-23 08:58 | IPNPDOC ---
Text Note Date of Service The patient was seen on 06/23/18. NOTE Subjective: Patient seen and examined at bedside. No new medical complaints. No acute overnight events reported Objective: Vitals (See below) General: Lying in bed, no acute distress, comfortable, elderly, frail HEENT: NC, AT, edentulous CVS: irregular, +S1S2, systolic murmur Lungs: b/l basilar crackles Abdomen: Soft, ND, mild tenderness Extremities: no edema A/P: Patient is an 82-year-old male with a PMHx of Systolic CHF (EF: 45%), Paroxysmal A. fib (on Digoxin), COPD, REBEKAH on CPAP, DLP, DM2, Hypothyroidism, BPH, Gout, Psoriasis, GERD who presented to the ER with complaints of shortness of breath and cough. In the emergency room, patient was found to have a pneumonia and was admitted to hospitalist service for further evaluation and treatment. #Sepsis - resolved #lactic acidosis/hypotension - secondary to sepsis - resolved #Shortness of breath - likely secondary to fluid overload complicated with pseudomonas pneumonia - continue with cefepime - vanco discontinued given negative MRSA screen - SCx = pseudo, sensitivities pending - repeat CXR bilateral pleural effusion - right sided is new - TTE noted - moderate - discussed with cardiology - not due to valvulopathy - I/O's, daily weights #acute congestive heart failure with preserved ejection fraction - continue with IV lasix as above - daily i/o's, daily weights #RSV infection - further complicating factor to respiratory symptoms #Moderate - d/w cardiology - not candidate for valve replacement at this time, unlikely etiology for his SOB #Psoriasis - MTX on hold #Paroxysmal A. fib - c/w rate / rhythm control with Digoxin - currently not on full anticoagulation - c/w ASA #COPD - no evidence of exacerbation - c/w inhaled therapy as ordered #REBEKAH on CPAP - may use own CPAP #DLP - c/w Simvastatin #DM2 - c/w ISS #Hypothyroidism - c/w Levothyroxine #BPH - Currently not on medications #Gout / Psoriasis - MTX on hold #GERD - c/w Omeprazole #DVT prophylaxis - c/w Heparin #Code Status - DNR / DNI Dispo: IV lasix, IV Abx, wean O2, I/O's, daily weights, guarded prognosis VS,Fishbone, I+O VS, Fishbone, I+O Laboratory Tests 06/23/18 04:31 Red Blood Count 2.74 L, Mean Corpuscular Volume 102.2 H, Mean Corpuscular Hemoglobin 33.2 H, Mean Corpuscular Hemoglobin Concent 32.5, Red Cell Distribut ion Width 15.4 H, Calcium Level 8.5 L Vital Signs Date Time Temp Pulse Resp B/P (MAP) Pulse Ox O2 Delivery O2 Flow Rate FiO2 06/23/18 05:08 18 06/23/18 04:00 98.7 87 118/60 (79) 94 Nasal Cannula 2.0 I&O- Last 24 Hours up to 6 AM 06/23/18 06:00 Intake Total 1060 ml Output Total 1850 ml Balance -790 ml ALEX HENDRICKS MD Jun 23, 2018 08:58
[2018-06-23] MEDS: OMEPRAZOLE 20 MG CAP PO SCH (09:34)
[2018-06-23] MEDS: TAMSULOSIN 0.4 MG CAP PO SCH (09:34)
[2018-06-23] MEDS: HumaLOG INSULIN (NovoLOG) PER UNIT SC SCH ×4 (09:34→20:25)
[2018-06-23] MEDS: MULTIVITAMINS/MINERALS THERAP 1 TAB PO SCH (09:34)
[2018-06-23] MEDS: POTASSIUM CHLORIDE 10 MEQ SR TABLET PO SCH ×2 (09:35→20:32)
[2018-06-23] MEDS: FOLIC ACID 1 MG TAB PO SCH (09:35)
[2018-06-23] MEDS: DOCUSATE SODIUM 100 MG CAP PO SCH ×2 (09:35→20:35)
[2018-06-23] MEDS: ALLOPURINOL 100 MG TAB PO SCH (09:36)
[2018-06-23] MEDS: ASPIRIN 81 MG ENTERIC TAB PO SCH (09:36)
[2018-06-23] MEDS: DRONEDARONE 400 MG TAB (MULTAQ) PO SCH ×2 (09:36→20:34)
[2018-06-23] MEDS: DIGOXIN 0.125 MG TAB PO SCH (09:36)
[2018-06-23] MEDS: OMEGA-3 1000MG CAPSULE PO SCH ×2 (09:36→20:31)
[2018-06-23] MEDS: CEFEPIME HCL 1 GM in D5W MINI-BAG PLUS 50 ML IV SCH ×2 (11:37→22:07)
[2018-06-23] MEDS: IPRATROPIUM 0.5MG/ALBUTEROL 2.5MG INH SOL UD 3ML (DUONEB)(J7620) NEB PRN (11:43)
--- NOTE | 2018-06-23 13:33 | REP ---
CT abdomen and pelvis without IV or oral contrast: History: Abdomen pain and tenderness. Comparison CT study is from January 19, 2017. 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 The lung base images show fairly advanced pulmonary fibrosis with honeycombing in the lower lobes bilaterally, left more so than right. No pleural effusion is seen. Vascular calcification is noted. No focal hepatic or splenic lesion is seen. Cholelithiasis is noted. No adrenal lesion is observed. There are to pancreatic cysts including a 2.2 cm cyst in the pancreatic body and to a 2.0 cm cyst along the posterior aspect of the head of the pancreas. These are slightly larger when compared to the January 19, 2017 prior study but not new. There is subtle streakiness in the fat around the pancreas consistent with pancreatitis or previous pancreatitis. Some streakiness is seen in the small bowel mesenteric fat as well. There is minimal ascitic fluid in the pelvic reflections on today's CT study. A Brantley catheter is seen in the urinary bladder. Urinary bladder edouard are markedly thickened diffusely. There is no evidence of hydronephrosis. There are bilateral intrarenal calculi. There are cysts at the lower pole of the left kidney unchanged. No ureteral calculus is seen. There is an infrarenal abdominal aortic aneurysm which measures 3.3 cm in greatest anteroposterior dimension. Previously this measured 3.1 cm. No bony destructive lesion is seen. Impression: Cholelithiasis. Two small pancreatic cysts. Peripancreatic and small bowel mesenteric fat streakiness question pancreatitis. Minimal ascitic fluid in the pelvic reflections. Diffuse marked urinary bladder wall thickening consistent with cystitis. Bilateral intrarenal calculi no hydronephrosis. Left renal cysts. Advanced COPD. Electronically Signed by Barak Perkins MD 06/23/2018 04:41 P
[2018-06-23] MEDS: ACETAMINOPHEN TAB 650MG DOSE (2X325MG) PO PRN (17:02)
[2018-06-23] MEDS: FERROUS GLUCONATE 324 MG TAB PO SCH (18:30)
[2018-06-23] MEDS: SIMVASTATIN 10 MG TAB PO SCH (20:33)
[2018-06-24] MEDS: FUROSEMIDE 20 MG/2 ML VIAL (J1940) IV SCH (03:00)
[2018-06-24 04:00] VITALS: BP 105/57
[2018-06-24 05:25] LABS: HEMATOCRIT 28.6 % (42.0-52.0); HEMOGLOBIN 9.3 g/dl (13.5-17.5); MEAN CORPUSCULAR HEMOGLOBIN 33.2 pg (27.0-33.0); MEAN CORPUSCULAR HGB CONC 32.5 g/dl (32.0-36.5); MEAN CORPUSCULAR VOLUME 102.1 fl (80.0-96.0); PLATELET COUNT, AUTOMATED 161 10^3/uL (150-450); WHITE BLOOD COUNT 10.3 10^3/uL (4.0-10.0)
[2018-06-24 05:47] LABS: CALCIUM LEVEL 8.8 MG/DL (8.8-10.2); CREATININE FOR GFR 1.42 MG/DL (0.70-1.30); GLOMERULAR FILTRATION RATE 50.7 (>35); POTASSIUM SERUM 3.8 MEQ/L (3.5-5.1)
[2018-06-24] MEDS: LEVOTHYROXINE 125MCG TABLET (0.125MG) PO SCH (06:13)
[2018-06-24] MEDS: MORPHINE 15 MG SA TAB PO SCH ×2 (06:14→22:12)
[2018-06-24] MEDS: HumaLOG INSULIN (NovoLOG) PER UNIT SC SCH ×4 (07:49→21:00)
[2018-06-24 08:00] VITALS: BP 124/70
--- NOTE | 2018-06-24 08:41 | IPNPDOC ---
Text Note Date of Service The patient was seen on 06/24/18. NOTE Subjective: Patient seen and examined at bedside. No new medical complaints. No acute overnight events reported Objective: Vitals (See below) General: Lying in bed, no acute distress, comfortable, elderly, frail HEENT: NC, AT, edentulous, hard of hearing CVS: irregular, +S1S2, systolic murmur Lungs: b/l crackles L>R Abdomen: Soft, ND, mild tenderness Extremities: pedal edema A/P: Patient is an 82-year-old male with a PMHx of CHF, A. fib (on Digoxin), moderate , COPD, REBEKAH on CPAP, DLP, DM2, Hypothyroidism, BPH, Gout, Psoriasis, GERD who presented to the ER with complaints of shortness of breath and cough. In the emergency room, patient was found to have a pneumonia and was admitted to hospitalist service for further evaluation and treatment. #Sepsis - resolved #lactic acidosis/hypotension - secondary to sepsis - resolved #pseudomonas pneumonia - day #5 cefepime - sputum + pseudo #RSV infection #decompensated heart failure - diastolic dysfunction - lasix on hold - creatinine increasing - repeat CXR for interim eval - I/O's, daily weights #moderate aortic stenosis - d/w cardiology - not candidate for repair/replacement #Shortness of breath - multifactorial as above #Psoriasis - MTX on hold #Paroxysmal A. fib - c/w rate / rhythm control with Digoxin - currently not on full anticoagulation - c/w ASA #COPD - no evidence of exacerbation - c/w inhaled therapy as ordered - respiratory treatments #REBEKAH on CPAP - may use own CPAP #DLP - c/w Simvastatin #DM2 - c/w ISS #Hypothyroidism - c/w Levothyroxine #BPH - Currently not on medications #Gout / Psoriasis - MTX on hold #GERD - c/w Omeprazole #DVT prophylaxis - c/w Heparin #Code Status - DNR / DNI Dispo: IV lasix, IV Abx, wean O2, I/O's, daily weights, repeat CXR, PT/OT VS,Fishbone, I+O VS, Fishbone, I+O Laboratory Tests 06/24/18 04:56 Red Blood Count 2.80 L, Mean Corpuscular Volume 102.1 H, Mean Corpuscular Hemoglobin 33.2 H, Mean Corpuscular Hemoglobin Concent 32.5, Red Cell Distribution Width 15.1 H, Calcium Level 8.8 Vital Signs Date Time Temp Pulse Resp B/P (MAP) Pulse Ox O2 Delivery O2 Flow Rate FiO2 06/24/18 06:14 18 NIPPV (BIPAP/CPAP) 06/24/18 04:00 98.2 84 105/57 (73) 06/24/18 00:00 06/23/18 23:59 97 I&O- Last 24 Hours up to 6 AM 06/24/18 06:00 Intake Total 460 ml Output Total 1550 ml Balance -1090 ml ALEX HENDRICKS MD Jun 24, 2018 08:41
--- NOTE | 2018-06-24 09:37 | REP ---
Clinical: Shortness of breath. Technique: AP and lateral. Comparison: 06/21/2018. Findings: Diffuse chronic interstitial changes and fibrosis noted bilaterally. Previously suggested areas of bibasilar atelectasis (left greater than right) have improved. No obvious acute consolidation, effusion, or pneumothorax. Mediastinum and cardiac silhouette stable. Skeletal structures demonstrate age-related osteopenia and degenerative change. Impression: Diffuse fibrosis and chronic interstitial changes similar to prior examination. Decreased basilar atelectasis. Electronically Signed by Thomas Landaverde MD 06/24/2018 09:28 A
[2018-06-24] MEDS: DIGOXIN 0.125 MG TAB PO SCH (10:07)
[2018-06-24] MEDS: POTASSIUM CHLORIDE 10 MEQ SR TABLET PO SCH ×2 (10:07→21:00)
[2018-06-24] MEDS: OMEGA-3 1000MG CAPSULE PO SCH ×2 (10:07→21:00)
[2018-06-24] MEDS: MULTIVITAMINS/MINERALS THERAP 1 TAB PO SCH (10:07)
[2018-06-24] MEDS: DOCUSATE SODIUM 100 MG CAP PO SCH ×2 (10:08→21:02)
[2018-06-24] MEDS: ASPIRIN 81 MG ENTERIC TAB PO SCH (10:08)
[2018-06-24] MEDS: FOLIC ACID 1 MG TAB PO SCH (10:08)
[2018-06-24] MEDS: OMEPRAZOLE 20 MG CAP PO SCH (10:08)
[2018-06-24] MEDS: ALLOPURINOL 100 MG TAB PO SCH (10:08)
[2018-06-24] MEDS: TAMSULOSIN 0.4 MG CAP PO SCH (10:08)
[2018-06-24] MEDS: DRONEDARONE 400 MG TAB (MULTAQ) PO SCH ×2 (10:09→21:02)
[2018-06-24] MEDS: ACETAMINOPHEN TAB 650MG DOSE (2X325MG) PO PRN (10:40)
[2018-06-24] MEDS: CEFEPIME HCL 1 GM in D5W MINI-BAG PLUS 50 ML IV SCH ×2 (10:40→22:11)
[2018-06-24 12:00] VITALS: BP 95/51
[2018-06-24 16:00] VITALS: BP 108/70
[2018-06-24] MEDS: FERROUS GLUCONATE 324 MG TAB PO SCH (19:06)
[2018-06-24 20:00] VITALS: BP 101/52
[2018-06-24] MEDS: SIMVASTATIN 10 MG TAB PO SCH (21:01)
[2018-06-24 23:59] VITALS: BP 106/55
[2018-06-25 04:00] VITALS: BP 96/54
[2018-06-25 05:46] LABS: HEMATOCRIT 28.8 % (42.0-52.0); HEMOGLOBIN 9.3 g/dl (13.5-17.5); MEAN CORPUSCULAR HEMOGLOBIN 33.1 pg (27.0-33.0); MEAN CORPUSCULAR HGB CONC 32.3 g/dl (32.0-36.5); MEAN CORPUSCULAR VOLUME 102.5 fl (80.0-96.0); PLATELET COUNT, AUTOMATED 181 10^3/uL (150-450); RED BLOOD COUNT 2.81 10^6/uL (4.30-6.10); WHITE BLOOD COUNT 11.3 10^3/uL (4.0-10.0)
[2018-06-25] MEDS: LEVOTHYROXINE 125MCG TABLET (0.125MG) PO SCH (05:51)
[2018-06-25] MEDS: MORPHINE 15 MG SA TAB PO SCH ×2 (05:52→21:06)
[2018-06-25 06:00] LABS: CALCIUM LEVEL 8.8 MG/DL (8.8-10.2); CREATININE FOR GFR 1.36 MG/DL (0.70-1.30); GLOMERULAR FILTRATION RATE 53.3 (>35); POTASSIUM SERUM 4.2 MEQ/L (3.5-5.1)
[2018-06-25 08:00] VITALS: BP 116/58
[2018-06-25] MEDS: MULTIVITAMINS/MINERALS THERAP 1 TAB PO SCH (09:36)
[2018-06-25] MEDS: HumaLOG INSULIN (NovoLOG) PER UNIT SC SCH ×4 (09:36→21:00)
[2018-06-25] MEDS: OMEGA-3 1000MG CAPSULE PO SCH ×2 (09:37→21:04)
[2018-06-25] MEDS: DOCUSATE SODIUM 100 MG CAP PO SCH ×2 (09:37→21:04)
[2018-06-25] MEDS: TAMSULOSIN 0.4 MG CAP PO SCH (09:37)
[2018-06-25] MEDS: OMEPRAZOLE 20 MG CAP PO SCH (09:37)
[2018-06-25] MEDS: DIGOXIN 0.125 MG TAB PO SCH (09:37)
[2018-06-25] MEDS: FOLIC ACID 1 MG TAB PO SCH (09:38)
[2018-06-25] MEDS: ASPIRIN 81 MG ENTERIC TAB PO SCH (09:38)
[2018-06-25] MEDS: ALLOPURINOL 100 MG TAB PO SCH (09:38)
[2018-06-25] MEDS: DRONEDARONE 400 MG TAB (MULTAQ) PO SCH ×2 (09:38→21:00)
[2018-06-25] MEDS: POTASSIUM CHLORIDE 10 MEQ SR TABLET PO SCH ×2 (09:38→21:05)
--- NOTE | 2018-06-25 10:46 | IPNPDOC ---
Text Note Date of Service The patient was seen on 06/25/18. NOTE Subjective: Patient seen and examined at bedside. No new medical complaints. He is anxious to get out of bed. No acute overnight events reported Objective: Vitals (See below) General: Lying in bed, no acute distress, comfortable, elderly, frail HEENT: NC, AT, edentulous, hard of hearing CVS: irregular, +S1S2, systolic murmur Lungs: b/l crackles L>R Abdomen: Soft, ND, mild tenderness Extremities: pedal edema A/P: Patient is an 82-year-old male with a PMHx of CHF, A. fib (on Digoxin), moderate , COPD, REBEKAH on CPAP, DLP, DM2, Hypothyroidism, BPH, Gout, Psoriasis, GERD who presented to the ER with complaints of shortness of breath and cough. In the emergency room, patient was found to have a pneumonia and was admitted to hospitalist service for further evaluation and treatment. #Sepsis - resolved #lactic acidosis/hypotension - secondary to sepsis - resolved #pseudomonas pneumonia - day #6 cefepime - sputum + pseudo; will d/c cefepime today - transition to oral cipro #RSV infection - further complicating factor to his respiratory distress #decompensated heart failure - diastolic dysfunction - lasix on hold - creatinine increasing - repeat CXR for interim eval - I/O's, daily weights - resume demadex today #moderate aortic stenosis - d/w cardiology - not candidate for repair/replacement #Shortness of breath - multifactorial as above #Psoriasis - MTX on hold #Paroxysmal A. fib - c/w rate / rhythm control with Digoxin - currently not on full anticoagulation - c/w ASA #COPD - no evidence of exacerbation - c/w inhaled therapy as ordered - respiratory treatments #REBEKAH on CPAP - may use own CPAP #DLP - c/w Simvastatin #DM2 - c/w ISS #Hypothyroidism - c/w Levothyroxine #BPH - Currently not on medications #Gout / Psoriasis - MTX on hold #GERD - c/w Omeprazole #DVT prophylaxis - c/w Heparin #Code Status - DNR / DNI Dispo: wean O2, I/O's, daily weights, PT/OT VS,Fishbone, I+O VS, Fishbone, I+O Laboratory Tests 06/25/18 04:59 Red Blood Count 2.81 L, Mean Corpuscular Volume 102.5 H, Mean Corpuscular Hemoglobin 33.1 H, Mean Corpuscular Hemoglobin Concent 32.3, Red Cell Distribution Width 15.0 H, Calcium Level 8.8 Vital Signs Date Time Temp Pulse Resp B/P (MAP) Pulse Ox O2 Delivery O2 Flow Rate FiO2 06/25/18 09:37 77 06/25/18 08:00 97.4 20 116/58 (77) 100 Nasal Cannula 2.0 I&O- Last 24 Hours up to 6 AM 06/25/18 06:00 Intake Total 760 ml Output Total 875 ml Balance -115 ml ALEX HENDRICKS MD Jun 25, 2018 10:46
[2018-06-25] MEDS: ACETAMINOPHEN TAB 650MG DOSE (2X325MG) PO PRN ×2 (10:49→20:03)
[2018-06-25 12:00] VITALS: BP 118/76
[2018-06-25 16:00] VITALS: BP 108/56
[2018-06-25] MEDS: FERROUS GLUCONATE 324 MG TAB PO SCH (18:20)
[2018-06-25 20:00] VITALS: BP_SYST 106; BP_SYST 117; BP_DIAS 57; BP_DIAS 65
[2018-06-25] MEDS: SIMVASTATIN 10 MG TAB PO SCH (21:04)
[2018-06-26] VITALS: BP 108/54
[2018-06-26 04:00] VITALS: BP 126/59
[2018-06-26] MEDS: ACETAMINOPHEN TAB 650MG DOSE (2X325MG) PO PRN ×2 (04:26→15:07)
[2018-06-26] MEDS: MORPHINE 15 MG SA TAB PO SCH ×2 (06:45→21:22)
[2018-06-26] MEDS: LEVOTHYROXINE 125MCG TABLET (0.125MG) PO SCH (06:45)
[2018-06-26 08:00] VITALS: BP 106/58
[2018-06-26] MEDS: HumaLOG INSULIN (NovoLOG) PER UNIT SC SCH ×4 (08:46→21:00)
[2018-06-26] MEDS: OMEGA-3 1000MG CAPSULE PO SCH ×2 (08:47→21:23)
[2018-06-26] MEDS: FOLIC ACID 1 MG TAB PO SCH (08:47)
[2018-06-26] MEDS: POTASSIUM CHLORIDE 10 MEQ SR TABLET PO SCH ×2 (08:47→21:21)
[2018-06-26] MEDS: TAMSULOSIN 0.4 MG CAP PO SCH (08:47)
[2018-06-26] MEDS: ALLOPURINOL 100 MG TAB PO SCH (08:47)
[2018-06-26] MEDS: TORSEMIDE 20 MG TAB PO SCH (08:48)
[2018-06-26] MEDS: DIGOXIN 0.125 MG TAB PO SCH (08:48)
[2018-06-26] MEDS: DRONEDARONE 400 MG TAB (MULTAQ) PO SCH ×2 (08:49→21:22)
[2018-06-26] MEDS: DOCUSATE SODIUM 100 MG CAP PO SCH ×2 (08:49→21:22)
[2018-06-26] MEDS: OMEPRAZOLE 20 MG CAP PO SCH (08:49)
[2018-06-26] MEDS: MULTIVITAMINS/MINERALS THERAP 1 TAB PO SCH (08:49)
[2018-06-26] MEDS: ASPIRIN 81 MG ENTERIC TAB PO SCH (08:49)
[2018-06-26 09:08] LABS: BASO # 0.1 10^3/uL (0.0-0.2); BASO % 0.8 % (0.0-1.0); EOS # 0.4 10^3/uL (0.0-0.50); EOS % 3.8 % (0.0-3.0); HEMATOCRIT 30.8 % (42.0-52.0); LYMPH # 2.1 10^3/uL (1.5-4.5); LYMPH % 19.6 % (24.0-44.0); MEAN CORPUSCULAR HEMOGLOBIN 33.2 pg (27.0-33.0); MEAN CORPUSCULAR HGB CONC 32.5 g/dl (32.0-36.5); MEAN CORPUSCULAR VOLUME 102.3 fl (80.0-96.0); MONO # 0.9 10^3/uL (0.0-0.8); MONO % 8.5 % (0.0-5.0); NEUTROPHILS # 6.9 10^3/uL (1.8-7.7); NEUTROPHILS % 63.6 % (36.0-66.0); PLATELET COUNT, AUTOMATED 215 10^3/uL (150-450); RED BLOOD COUNT 3.01 10^6/uL (4.30-6.10); WHITE BLOOD COUNT 10.9 10^3/uL (4.0-10.0)
[2018-06-26 09:26] LABS: FOLATE 23.2 NG/ML
[2018-06-26 09:31] LABS: CREATININE FOR GFR 1.33 MG/DL (0.70-1.30); GLOMERULAR FILTRATION RATE 54.7 (>35); POTASSIUM SERUM 4.4 MEQ/L (3.5-5.1)
--- NOTE | 2018-06-26 11:15 | IPNPDOC ---
Text Note Date of Service The patient was seen on 06/26/18. NOTE Subjective: Patient seen and examined at bedside. No new medical complaints. No acute overnight events reported. Oxygen removed this morning. Denies shortness of breath. Objective: Vitals (See below) General: Lying in bed, no acute distress, comfortable, elderly, frail HEENT: NC, AT, edentulous, hard of hearing CVS: irregular, +S1S2, systolic murmur Lungs: b/l basilar crackles L>R Abdomen: Soft, ND, mild tenderness Extremities: pedal edema A/P: Patient is an 82-year-old male with a PMHx of CHF, A. fib (on Digoxin), moderate , COPD, REBEKAH on CPAP, DLP, DM2, Hypothyroidism, BPH, Gout, Psoriasis, GERD who presented to the ER with complaints of shortness of breath and cough. In the emergency room, patient was found to have a pneumonia and was admitted to hospitalist service for further evaluation and treatment. #Sepsis - resolved #lactic acidosis/hypotension - secondary to sepsis - resolved #pseudomonas pneumonia - day #7 cefepime - sputum + pseudo; will d/c cefepime today #RSV infection - further complicating factor to his respiratory distress #decompensated heart failure - diastolic dysfunction - repeat CXR for interim eval - I/O's, daily weights - resumed demadex today - BID dosing at home, will resume only am dose for now #moderate aortic stenosis - d/w cardiology - not candidate for repair/replacement #Shortness of breath - multifactorial as above #Psoriasis - MTX on hold #Paroxysmal A. fib - c/w rate / rhythm control with Digoxin - currently not on full anticoagulation - c/w ASA #COPD - no evidence of exacerbation - c/w inhaled therapy as ordered - respiratory treatments #REBEKAH on CPAP - may use own CPAP #DLP - c/w Simvastatin #DM2 - c/w ISS #Hypothyroidism - c/w Levothyroxine #BPH - Currently not on medications #Gout / Psoriasis - MTX on hold #GERD - c/w Omeprazole #DVT prophylaxis - c/w Heparin #Code Status - DNR / DNI Dispo: wean O2, I/O's, daily weights, PT/OT; likely rehab on d/c VS,Fishbone, I+O VS, Fishbone, I+O Laboratory Tests 06/26/18 08:51 Red Blood Count 3.01 L, Mean Corpuscular Volume 102.3 H, Mean Corpuscular Hemoglobin 33.2 H, Mean Corpuscular Hemoglobin Concent 32.5, Red Cell Distribution Width 15.0 H, Neutrophils (%) (Auto) 63.6, Lymphocytes (%) (Auto) 19.6 L, Monocytes (%) (Auto) 8.5 H, Eosinophils (%) (Auto) 3.8 H, Basophils (%) (Auto) 0.8, Neutrophils # (Auto) 6.9, Lymphocytes # (Auto) 2.1, Monocytes # (A uto) 0.9 H, Eosinophils # (Auto) 0.4, Basophils # (Auto) 0.1, Calcium Level 10.0 Vital Signs Date Time Temp Pulse Resp B/P (MAP) Pulse Ox O2 Delivery O2 Flow Rate FiO2 06/26/18 08:48 112 06/26/18 08:00 96.6 16 106/58 (74) 92 Room Air 06/26/18 04:00 2.0 I&O- Last 24 Hours up to 6 AM 06/26/18 06:00 Intake Total 800 ml Output Total 500 ml Balance 300 ml ALEX HENDRICKS MD Jun 26, 2018 11:14
[2018-06-26 12:00] VITALS: BP 118/62
[2018-06-26 16:00] VITALS: BP 118/52
[2018-06-26] MEDS: FERROUS GLUCONATE 324 MG TAB PO SCH (18:56)
[2018-06-26] MEDS: CIPROFLOXACIN 500 MG TAB PO SCH (18:56)
[2018-06-26 20:00] VITALS: BP 127/60
[2018-06-26] MEDS: SIMVASTATIN 10 MG TAB PO SCH (21:22)
[2018-06-27 00:16] VITALS: BP 109/57
[2018-06-27 04:13] VITALS: BP 102/63
[2018-06-27 05:36] LABS: HEMATOCRIT 28.8 % (42.0-52.0); HEMOGLOBIN 9.3 g/dl (13.5-17.5); MEAN CORPUSCULAR HEMOGLOBIN 32.7 pg (27.0-33.0); MEAN CORPUSCULAR HGB CONC 32.3 g/dl (32.0-36.5); MEAN CORPUSCULAR VOLUME 101.4 fl (80.0-96.0); PLATELET COUNT, AUTOMATED 215 10^3/uL (150-450); RED BLOOD COUNT 2.84 10^6/uL (4.30-6.10); WHITE BLOOD COUNT 9.3 10^3/uL (4.0-10.0)
[2018-06-27] MEDS: LEVOTHYROXINE 125MCG TABLET (0.125MG) PO SCH (05:44)
[2018-06-27] MEDS: CIPROFLOXACIN 500 MG TAB PO SCH ×2 (05:44→18:27)
[2018-06-27] MEDS: MORPHINE 15 MG SA TAB PO SCH ×2 (05:44→21:39)
[2018-06-27 05:58] LABS: CALCIUM LEVEL 8.8 MG/DL (8.8-10.2); CREATININE FOR GFR 1.48 MG/DL (0.70-1.30); GLOMERULAR FILTRATION RATE 48.3 (>35); POTASSIUM SERUM 4.5 MEQ/L (3.5-5.1)
[2018-06-27 08:00] VITALS: BP 106/52
[2018-06-27] MEDS: HumaLOG INSULIN (NovoLOG) PER UNIT SC SCH ×4 (09:18→21:00)
[2018-06-27] MEDS: TORSEMIDE 20 MG TAB PO SCH (09:19)
[2018-06-27] MEDS: OMEGA-3 1000MG CAPSULE PO SCH ×2 (09:20→21:38)
[2018-06-27] MEDS: FOLIC ACID 1 MG TAB PO SCH (09:20)
[2018-06-27] MEDS: POTASSIUM CHLORIDE 10 MEQ SR TABLET PO SCH ×2 (09:20→21:38)
[2018-06-27] MEDS: ALLOPURINOL 100 MG TAB PO SCH (09:20)
[2018-06-27] MEDS: ASPIRIN 81 MG ENTERIC TAB PO SCH (09:20)
[2018-06-27] MEDS: MULTIVITAMINS/MINERALS THERAP 1 TAB PO SCH (09:20)
[2018-06-27] MEDS: OMEPRAZOLE 20 MG CAP PO SCH (09:20)
[2018-06-27] MEDS: TAMSULOSIN 0.4 MG CAP PO SCH (09:20)
[2018-06-27] MEDS: DOCUSATE SODIUM 100 MG CAP PO SCH ×2 (09:21→21:40)
[2018-06-27] MEDS: DIGOXIN 0.125 MG TAB PO SCH (09:22)
[2018-06-27] MEDS: ACETAMINOPHEN TAB 650MG DOSE (2X325MG) PO PRN ×2 (09:22→18:28)
[2018-06-27] MEDS: DRONEDARONE 400 MG TAB (MULTAQ) PO SCH ×2 (09:23→21:00)
[2018-06-27 12:00] VITALS: BP 100/62
--- NOTE | 2018-06-27 14:18 | IPNPDOC ---
Text Note Date of Service The patient was seen on 06/27/18. NOTE Subjective: Patient is an 82-year-old male with a PMHx of Systolic CHF (EF: 45%), Paroxysmal A. fib (on Digoxin), COPD, REBEKAH on CPAP, DLP, DM2, Hypothyroidism, BPH, Gout, Psoriasis, GERD who presented to the ER with complaints of shortness of breath and cough. In the emergency room, patient was found to have a pneumonia and was admitted to hospitalist service for further evaluation and treatment. Patient was seen and examined at the bedside. Patient has no new complaints this morning. Denies any chest pain, shortness of breath or palpitations. Denies nausea, vomiting, abdominal pain, constipation, diarrhea or discomfort with urination. Objective: Vitals (See below) General: Lying in bed, no acute distress, comfortable, Awake / Alert HEENT: NC, AT CVS: RRR, +S1S2 Lungs: Fair air entry b/l, appears to have bilateral crackles at lung bases. No appreciable wheezing or rhonchi Abdomen: Soft, nondistended, without any tenderness Extremities: - Edema bilaterally, - Calf tenderness Assessment and plan: Sepsis - likely 2/2 CAP - Presented to the ER with complaint of short of breath and productive cough - Auscultation. Does appear to have rhonchi at left lung base - s/p Leukocytosis; s/p Lactic acidosis - Blood cultures 06/17: No growth at 5 days; Sputum culture 06/20: Pseudomonas Aeruginosa; Respiratory panel 06/22: RSV - CT chest 06/18: Diffuse coarse interstitial lung disease, most likely chronic in nature. However, it is difficult to exclude an acute pneumonitis. Clinical correlation is needed. No consolidation. No significant pleural effusions. Cardiomegaly. Dilated pulmonary artery segments, which may indicate pulmonary arterial hypertension. - CXR 06/19: 1. Chronic interstitial fibrosis. 2. Left lower lobe infiltrate. - CXR 06/26: Diffuse fibrosis and chronic interstitial changes similar to prior examination. Decreased basilar atelectasis. - c/w Ciprofloxacin (Antibiotic day #8) Shortness of breath - possibly 2/2 above; possibly 2/2 fluid overload - possibly 2/2 CHF - s/p IV fluid hydration - Imaging does show increasing interstitial infiltrates - possibly could be from fluids - s/p IV fluid hydration - ECHO 06/20: Moderate , Mild MR, Mild TR, Moderate pulmonary HTN - c/w Torsemide Moderate - Case was discussed between Dr. Lehman and Dr. Mcmahon; not candidate for repair/replacement Psoriasis - Hold Methotrexate Paroxysmal A. fib - c/w rate / rhythm control with Digoxin - Currently not on full anticoagulation - c/w ASA COPD - no evidence of exacerbation - c/w inhaled therapy as ordered REBEKAH on CPAP - may use own CPAP DLP - c/w Simvastatin DM2 - c/w ISS Hypothyroidism - c/w Levothyroxine BPH - Currently not on medications Gout / Psoriasis - Methotrexate on hold GERD - c/w Omeprazole DVT prophylaxis - c/w Heparin Code status: - DNR / DNI Disposition: - c/w PT; transition to SSV tomorrow VS,Tish, I+O VS, Tish, I+O Laboratory Tests 06/27/18 05:24 Red Blood Count 2.84 L, Mean Corpuscular Volume 101.4 H, Mean Corpuscular Hemoglobin 32.7, Mean Corpuscular Hemoglobin Concent 32.3, Red Cell Distribution Width 15.0 H, Calcium Level 8.8 Vital Signs Date Time Temp Pulse Resp B/P (MAP) Pulse Ox O2 Delivery O2 Flow Rate FiO2 06/27/18 09:22 90 06/27/18 08:00 99.2 22 106/52 (70) 91 Room Air 06/26/18 04:00 2.0 I&O- Last 24 Hours up to 6 AM 06/27/18 06:00 Intake Total 1215 ml Output Total 1725 ml Balance -510 ml MAYRA MUSA MD Jun 27, 2018 14:18
[2018-06-27] MEDS: FERROUS GLUCONATE 324 MG TAB PO SCH (18:27)
[2018-06-27 20:00] VITALS: BP 98/59
[2018-06-27] MEDS: SIMVASTATIN 10 MG TAB PO SCH (21:40)
[2018-06-28 06:00] VITALS: BP 125/58
[2018-06-28] MEDS: MORPHINE 15 MG SA TAB PO SCH (06:44)
[2018-06-28] MEDS: LEVOTHYROXINE 125MCG TABLET (0.125MG) PO SCH (06:44)
[2018-06-28] MEDS: CIPROFLOXACIN 500 MG TAB PO SCH (06:44)
[2018-06-28 07:45] LABS: BASO # 0.1 10^3/uL (0.0-0.2); BASO % 0.7 % (0.0-1.0); EOS # 0.3 10^3/uL (0.0-0.50); EOS % 3.1 % (0.0-3.0); HEMATOCRIT 31.2 % (42.0-52.0); HEMOGLOBIN 10.2 g/dl (13.5-17.5); LYMPH # 2.3 10^3/uL (1.5-4.5); LYMPH % 22.8 % (24.0-44.0); MEAN CORPUSCULAR HEMOGLOBIN 33.3 pg (27.0-33.0); MEAN CORPUSCULAR HGB CONC 32.7 g/dl (32.0-36.5); MONO # 1.1 10^3/uL (0.0-0.8); MONO % 10.2 % (0.0-5.0); NEUTROPHILS # 6.2 10^3/uL (1.8-7.7); NEUTROPHILS % 60.4 % (36.0-66.0); PLATELET COUNT, AUTOMATED 208 10^3/uL (150-450); RED BLOOD COUNT 3.06 10^6/uL (4.30-6.10); WHITE BLOOD COUNT 10.3 10^3/uL (4.0-10.0)
[2018-06-28 08:00] VITALS: BP 118/60
[2018-06-28 08:12] LABS: CALCIUM LEVEL 9.1 MG/DL (8.8-10.2); CREATININE FOR GFR 1.41 MG/DL (0.70-1.30); GLOMERULAR FILTRATION RATE 51.1 (>35); POTASSIUM SERUM 4.1 MEQ/L (3.5-5.1)
[2018-06-28] MEDS ORDERED: CIPR-249 PO (08:55)
[2018-06-28] MEDS ORDERED: FLOM0.4C39 PO (08:55)
[2018-06-28] MEDS: ALLOPURINOL 100 MG TAB PO SCH (08:56)
[2018-06-28] MEDS: HumaLOG INSULIN (NovoLOG) PER UNIT SC SCH (08:56)
[2018-06-28] MEDS: POTASSIUM CHLORIDE 10 MEQ SR TABLET PO SCH (08:57)
[2018-06-28] MEDS: FOLIC ACID 1 MG TAB PO SCH (08:57)
[2018-06-28] MEDS: TORSEMIDE 20 MG TAB PO SCH (08:57)
[2018-06-28] MEDS: DOCUSATE SODIUM 100 MG CAP PO SCH (08:58)
[2018-06-28] MEDS: OMEPRAZOLE 20 MG CAP PO SCH (08:58)
[2018-06-28] MEDS: OMEGA-3 1000MG CAPSULE PO SCH (08:58)
[2018-06-28] MEDS: ASPIRIN 81 MG ENTERIC TAB PO SCH (08:58)
[2018-06-28] MEDS: TAMSULOSIN 0.4 MG CAP PO SCH (08:58)
[2018-06-28] MEDS: MULTIVITAMINS/MINERALS THERAP 1 TAB PO SCH (08:58)
[2018-06-28] MEDS: DRONEDARONE 400 MG TAB (MULTAQ) PO SCH (08:58)
[2018-06-28] MEDS: DIGOXIN 0.125 MG TAB PO SCH (09:00)
--- NOTE | 2018-06-28 13:15 | DS.PDOC ---
Discharge Summary General Date of Admission Jun 18, 2018 at 00:36 Date of Discharge 06/28/2018 Discharge Summary PROCEDURES PERFORMED DURING STAY: [None]. ADMITTING DIAGNOSES / DISCHARGE DIAGNOSES: Sepsis - likely 2/2 CAP Shortness of breath - possibly 2/2 above; possibly 2/2 fluid overload - possibly 2/2 CHF Moderate Psoriasis Paroxysmal A. fib COPD REBEKAH on CPAP DLP DM2 Hypothyroidism BPH Gout / Psoriasis GERD DVT prophylaxis COMPLICATIONS/CHIEF COMPLAINT: Shortness of breath / Cough HISTORY OF PRESENT ILLNESS: Patient is an 82-year-old male with a PMHx of Systolic CHF (EF: 45%), Paroxysmal A. fib (on Digoxin), COPD, REBEKAH on CPAP, DLP, DM2, Hypothyroidism, BPH, Gout, Psoriasis, GERD who presented to the ER with complaints of shortness of breath and cough. In the emergency room, patient was found to have a pneumonia and was admitted to hospitalist service for further evaluation and treatment. HOSPITAL COURSE: Sepsis - likely 2/2 CAP - Presented to the ER with complaint of short of breath and productive cough; clinically has had significant improvement - s/p Leukocytosis; s/p Lactic acidosis - Blood cultures 06/17: No growth at 5 days; Sputum culture 06/20: Pseudomonas Ae ruginosa; Respiratory panel 06/22: RSV - CT chest 06/18: Diffuse coarse interstitial lung disease, most likely chronic in nature. However, it is difficult to exclude an acute pneumonitis. Clinical correlation is needed. No consolidation. No significant pleural effusions. Cardiomegaly. Dilated pulmonary artery segments, which may indicate pulmonary arterial hypertension. - CXR 06/19: 1. Chronic interstitial fibrosis. 2. Left lower lobe infiltrate. - CXR 06/26: Diffuse fibrosis and chronic interstitial changes similar to prior examination. Decreased basilar atelectasis. - c/w Ciprofloxacin (Antibiotic day #9); will complete course of intravenous the patient Shortness of breath - possibly 2/2 above; possibly 2/2 fluid overload - possibly 2/2 CHF - s/p IV fluid hydration - Imaging does show increasing interstitial infiltrates - possibly could be from fluids - s/p IV fluid hydration - ECHO 06/20: Moderate , Mild MR, Mild TR, Moderate pulmonary HTN - c/w Torsemide at outpatient dose Moderate - Case was discussed between Dr. Lehman and Dr. Mcmahon; not candidate for repair/replacement Psoriasis - Hold Methotrexate Paroxysmal A. fib - c/w rate / rhythm control with Digoxin - Currently not on full anticoagulation - c/w ASA COPD - no evidence of exacerbation - c/w inhaled therapy as ordered REBEKAH on CPAP - may use own CPAP DLP - c/w Simvastatin DM2 - c/w ISS Hypothyroidism - c/w Levothyroxine BPH - Currently not on medications Gout / Psoriasis - Methotrexate on hold GERD - c/w Omeprazole DVT prophylaxis - c/w Heparin DISCHARGE MEDICATIONS: Please see below. ALLERGIES: Please see below. PHYSICAL EXAMINATION ON DISCHARGE: Vitals (See below) General: Lying in bed, no acute distress, comfortable, Awake / Alert HEENT: NC, AT CVS: RRR, +S1S2 Lungs: Fair air entry b/l, mild crackles appreciated bilaterally. No evidence of rhonchi or wheezing Abdomen: Soft, nondistended, without any tenderness Extremities: No evidence of lower extremity edema, - Calf tenderness LABORATORY DATA: Please see below. ACTIVITY: [As tolerated]. DISCHARGE PLAN: Follow up with Dr. Bernardo within 7 days Remain compliant with treatment plan and medications Return to the ER if you experience any problems. DISPOSITION: [facility]; Skilled DISCHARGE CONDITION: [Stable]. TIME SPENT ON DISCHARGE: Greater than [35] minutes. Vital Signs/I&Os Vital Signs Date Time Temp Pulse Resp B/P (MAP) Pulse Ox O2 Delivery O2 Flow Rate FiO2 06/28/18 09:00 80 06/28/18 08:00 98.6 18 118/60 (79) 95 Nasal Cannula 2.0 I&O- Last 24 Hours up to 6 AM 06/28/18 06:00 Intake Total 720 ml Output Total 925 ml Balance -205 ml Laboratory Data Labs 24H Laboratory Tests 2 06/27/18 16:52: Bedside Glucose (Misc Panel) 173H 06/27/18 21:44: Bedside Glucose (Misc Panel) 177H 06/28/18 06:49: Bedside Glucose (Misc Panel) 151H 06/28/18 07:35: Immature Granulocyte % (Auto) 2.8, White Blood Count 10.3H, Red Blood Count 3.06L, Hemoglobin 10.2L, Hematocrit 31.2L, Mean Corpuscular Volume 102.0H, Mean Corpuscular Hemoglobin 33.3H, Mean Corpuscular Hemoglobin Concent 32.7, Red Cell Distribution Width 15.3H, Platelet Count 208, Neutrophils (%) (Auto) 60.4, Lymphocytes (%) (Auto) 22.8L, Monocytes (%) (Auto) 10.2H, Eosinophils (%) (Auto) 3.1H, Basophils (%) (Auto) 0.7, Neutrophils # (Auto) 6.2, Lymphocytes # (Auto) 2.3, Monocytes # (Auto) 1.1H, Eosinophils # (Auto) 0.3, Basophils # (Auto) 0.1, Nucleated Red Blood Cells % (auto) 0.0, Anion Gap 8, Glomerular Filtration Rate 51.1, Blood Urea Nitrogen 17, Creatinine 1.41H, Sodium Level 133L, Potassium Level 4.1, Chloride Level 101, Carbon Dioxide Level 24, Calcium Level 9.1, Magnesium Level 2.0 CBC/BMP Laboratory Tests 06/28/18 07:35 Red Blood Count 3.06 L, Mean Corpuscular Volume 102.0 H, Mean Corpuscular Hemoglobin 33.3 H, Mean Corpuscular Hemoglobin Concent 32.7, Red Cell Distribution Width 15.3 H, Neutrophils (%) (Auto) 60.4, Lymphocytes (%) (Auto) 22.8 L, Monocytes (%) (Auto) 10.2 H, Eosinophils (%) (Auto) 3.1 H, Basophils (%) (Auto) 0.7, Neutrophils # (Auto) 6.2, Lymphocytes # (Auto) 2.3, Monocytes # (Auto) 1.1 H, Eosinophils # (Auto) 0.3, Basophils # (Auto) 0.1, Calcium Level 9.1 FSBS Laboratory Tests Test 06/27/18 16:52 06/27/18 21:44 06/28/18 06:49 Range/Units Bedside Glucose (Misc Panel) 173 177 151 83-110 MG/DL Microbiology Microbiology 06/20/18 Blood Culture - Final, Complete NO GROWTH AFTER 5 DAYS 06/20/18 Blood Culture - Final, Complete NO GROWTH AFTER 5 DAYS 06/22/18 Respiratory Virus Panel (PCR) ([facility]) - Final, Complete Respiratory Syncytial Virus 06/20/18 Gram Stain - Final, Complete 06/20/18 Sputum Culture - Final, Complete Pseudomonas Aeruginosa 06/20/18 MRSA Screen - Final, Complete 06/18/18 Urine Culture - Final, Complete Discharge Medications Scheduled (Docqlace) 100 Mg Cap, 200 MG PO TID, (Reported) (Trulicity) 0.75 Mg/0.5 Ml Inj, 0.75 MG SC QWEEK, (Reported) WEDNESDAYS @ 1999 (Digoxin) 125 Mcg Tab, 125 MCG PO DAILY, (Reported) Allopurinol (Allopurinol) 100 Mg Tab, 200 MG PO DAILY, (Reported) Aspirin (Aspirin EC) 81 Mg Tab, 81 MG PO DAILY, (Reported) Calcium/Vitamin D (Calcium/Vitamin D 600-400 mg-Unit) 1 Tab Tab, 1 TAB PO BID, (Reported) Ciprofloxacin HCl (Cipro) 500 Mg Tab, 500 MG PO BID@ Dronedarone (Multaq) 400 Mg Tab, 400 MG PO BID, (Reported) Ferrous Gluconate (Ferrous Gluconate) 324 Mg Tab, 324 MG PO QPM, (Reported) TAKES AT 1700 Fexofenadine Hydrochloride (Melinda Allergy) 180 Mg Tab, 180 MG PO DAILY, (Reported) Folic Acid (Folic Acid) 1 Mg Tab, 1 MG PO DAILY, (Reported) Levothyroxine Sodium (Synthroid) 125 Mcg Tab, 125 MCG PO DAILY, (Reported) Lovastatin (Lovastatin) 10 Mg Tab, 10 MG PO QHS, (Reported) Morphine Sulfate (Morphine Sulfate ER) 15 Mg Tabcr, 15 MG PO BID, (Reported) TAKES AT 0600 and 2200 Multivitamins *[facility] STOCKED* (Thera M Plus *[facility] STOCKED*) 1 Tab Tab, 1 TAB PO DAILY, (Reported) [place] 3 Polyunsat Fatty Acids (Fish Oil 1000 mg) 1 Cap Cap, 1 CAP PO BID, (Reported) Omeprazole (Omeprazole) 20 Mg Cap, 20 MG PO DAILY, (Reported) Potassium Chloride (K-Tab) 10 Meq Tab, 20 MEQ PO BID, (Reported) Sitagliptin (Januvia) 50 Mg Tab, 50 MG PO DAILY, (Reported) Tamsulosin Hydrochloride (Flomax) 0.4 Mg Cap, 0.4 MG PO DAILY Torsemide (Torsemide) 20 Mg Tab, 40 MG PO DAILY, (Reported) Scheduled PRN (Acetaminophen/Codeine #4 300-60 mg) 1 Tab Tab, 1 TAB PO Q6H PRN for PAIN, (Reported) Acetaminophen (Acetaminophen) 500 Mg Tab, 500 MG PO Q6H PRN for PAIN / FEVER, (Reported) Guaifenesin/Dextromethorphan (Guaifenesin Dm 100-10 mg/5Ml) 1 Syp Syp, 10 ML PO Q4H PRN for COUGH, (Reported) Melatonin (Melatonin) 10 Mg Cap, 10 MG PO QHS PRN for INSOMNIA, (Reported) Milk Of Magnesia (Milk of Magnesia) 1,200 Mg/15 Ml Heather, 30 ML PO DAILY PRN for CONSTIPATION, (Reported) Nitroglycerin (Nitrostat) 0.4 Mg Subl, 0.4 MG SL NITRO PRN for CHEST PAIN, (R eported) Nystatin (Nystatin) 100,000 Unit/Gm Cre, 1 APLCT TOP BID PRN for RASH, (Reported) APPLY TO BUTTOCKS Ondansetron (Ondansetron Odt) 4 Mg Tab, 4 MG PO Q8H PRN for NAUSEA, (Reported) Polyethylene Glycol (Miralax) 1 Pow Pow, 17 GM PO DAILY PRN for CONSTIPATION, (Reported) Polyethylene Glycol (Systane 0.4-0.3 %) 15 Ml Maria Teresa, 1 DROP OU BID PRN for DRY EYES, (Reported) Triamcinolone Acet (Triamcinolone Acetonide 0.1% Oint) 1 Dose/15 Gm Oint, 1 APLCT TOP PRN PRN for PSORIASIS, (Reported) Allergies Coded Allergies: Beta Adrenergic Blockers (Verified Allergy, Unknown, 06/19/18) Coumarin (Verified Allergy, Unknown, 05/28/18) Spironolactone (Verified Allergy, Unknown, 05/28/18) Indomethacin (Verified Adverse Reaction, Mild, HALLUCINATION, 08/30/12) MAYRA MUSA MD Jun 28, 2018 13:15
== END 2018-06-28 11:40 | DRG 871 ==
LOC: M ED 21:16 → M ED INP 06-18 00:36 → M PCU 06-18 02:17 → M MSPAV 06-18 17:24 → M PCU 06-21 11:51
PROVIDERS: ADMIT Internal Medicine; ATTEND Internal Medicine
DX: A41.9 Sepsis, unspecified organism (principal); J15.1 Pneumonia due to Pseudomonas; I50.23 Acute on chronic systolic (congestive) heart failure; E87.2 Acidosis; R04.2 Hemoptysis; J44.9 Chronic obstructive pulmonary disease, unspecified; I48.0 Paroxysmal atrial fibrillation; E11.9 Type 2 diabetes mellitus without complications; E03.9 Hypothyroidism, unspecified; I35.0 Nonrheumatic aortic (valve) stenosis; Z66 Do not resuscitate; K21.9 Gastro-esophageal reflux disease without esophagitis; B97.4 Respiratory syncytial virus as the cause of diseases classified elsewhere; G47.33 Obstructive sleep apnea (adult) (pediatric); I25.10 Atherosclerotic heart disease of native coronary artery without angina pectoris; E78.5 Hyperlipidemia, unspecified; N40.0 Benign prostatic hyperplasia without lower urinary tract symptoms; M10.9 Gout, unspecified; Z79.82 Long term (current) use of aspirin; Z79.84 Long term (current) use of oral hypoglycemic drugs; Z79.899 Other long term (current) drug therapy; Z87.891 Personal history of nicotine dependence; Z88.8 Allergy status to other drugs, medicaments and biological substances

== ENCOUNTER → 2018-06-29 | Outpatient (REF) ==
[~2018-06-29] MED LIST changes: +CIPR-249 PO; +FLOM0.4C39 PO
[2018-06-29 13:27] LABS: HEMOGLOBIN A1c 7.1 %
[2018-06-29 14:25] LABS: CREATININE, URINE 75.3 MG/DL; MALB URINE SIEMENS 93.3 MG/L; MAU/CREAT RATIO 123.9 MCG/MG (0.0-30.0)
== END ==
LOC: SKLAB5 11:01
PROVIDERS: ATTEND Internal Medicine
DX: E11.9 Type 2 diabetes mellitus without complications (principal)

== ENCOUNTER → 2018-07-04 | Outpatient (REF) | LOC: SKLAB5 13:11 | PROVIDERS: ATTEND Internal Medicine | DX: Z22.322 Carrier or suspected carrier of Methicillin resistant Staphylococcus aureus (principal) ==

== ENCOUNTER → 2018-07-06 | Outpatient (REF) ==
[2018-07-04 08:12] LABS: HEMATOCRIT 30.7 % (42.0-52.0); MEAN CORPUSCULAR HEMOGLOBIN 32.5 pg (27.0-33.0); MEAN CORPUSCULAR HGB CONC 32.6 g/dl (32.0-36.5); MEAN CORPUSCULAR VOLUME 99.7 fl (80.0-96.0); PLATELET COUNT, AUTOMATED 182 10^3/uL (150-450); RED BLOOD COUNT 3.08 10^6/uL (4.30-6.10); WHITE BLOOD COUNT 9.3 10^3/uL (4.0-10.0)
[2018-07-04 08:40] LABS: HEMOGLOBIN A1c 6.9 %
[2018-07-04 08:49] LABS: CALCIUM LEVEL 9.5 MG/DL (8.8-10.2); CREATININE FOR GFR 1.51 MG/DL (0.70-1.30); GLOMERULAR FILTRATION RATE 47.2 (>35); POTASSIUM SERUM 4.2 MEQ/L (3.5-5.1)
== END ==
LOC: SKLAB5 09:13
PROVIDERS: ATTEND Internal Medicine
DX: I50.9 Heart failure, unspecified (principal); E11.9 Type 2 diabetes mellitus without complications; I48.91 Unspecified atrial fibrillation

== ENCOUNTER → 2018-07-11 | Outpatient (REF) | LOC: SKLAB5 12:49 | PROVIDERS: ATTEND Internal Medicine | DX: Z22.322 Carrier or suspected carrier of Methicillin resistant Staphylococcus aureus (principal) ==

== ENCOUNTER → 2018-07-13 | Outpatient (REF) ==
[2018-07-13 08:28] LABS: HEMOGLOBIN 9.5 g/dl (13.5-17.5); MEAN CORPUSCULAR HEMOGLOBIN 32.6 pg (27.0-33.0); MEAN CORPUSCULAR HGB CONC 32.8 g/dl (32.0-36.5); MEAN CORPUSCULAR VOLUME 99.7 fl (80.0-96.0); PLATELET COUNT, AUTOMATED 145 10^3/uL (150-450); RED BLOOD COUNT 2.91 10^6/uL (4.30-6.10); WHITE BLOOD COUNT 10.1 10^3/uL (4.0-10.0)
== END ==
LOC: SKLAB5 08:04
PROVIDERS: ATTEND Internal Medicine
DX: D64.9 Anemia, unspecified (principal)

== ENCOUNTER → 2018-07-20 | Outpatient (REF) ==
[2018-07-20 09:59] LABS: CREATININE FOR GFR 1.37 MG/DL (0.70-1.30); GLOMERULAR FILTRATION RATE 52.8 (>35); POTASSIUM SERUM 4.2 MEQ/L (3.5-5.1)
== END ==
LOC: SKLAB5 08:20
PROVIDERS: ATTEND Internal Medicine
DX: I50.9 Heart failure, unspecified (principal)

== ENCOUNTER → 2018-07-30 | Outpatient (REF) | payer MEDICARE, MEDICAID ==
[2018-07-30 11:49] LABS: HEMATOCRIT 29.5 % (42.0-52.0); HEMOGLOBIN 9.7 g/dl (13.5-17.5); MEAN CORPUSCULAR HEMOGLOBIN 32.3 pg (27.0-33.0); MEAN CORPUSCULAR HGB CONC 32.9 g/dl (32.0-36.5); MEAN CORPUSCULAR VOLUME 98.3 fl (80.0-96.0); PLATELET COUNT, AUTOMATED 125 10^3/uL (150-450); WHITE BLOOD COUNT 11.1 10^3/uL (4.0-10.0)
[2018-07-30 12:25] LABS: CALCIUM LEVEL 8.5 MG/DL (8.8-10.2); CREATININE FOR GFR 1.44 MG/DL (0.70-1.30); GLOMERULAR FILTRATION RATE 49.9 (>35); PERCENT SATURATION 4.9 % (19.7-50.0); POTASSIUM SERUM 3.6 MEQ/L (3.5-5.1)
[2018-07-30 22:32] LABS: APPEARANCE, URINE CLEAR (CLEAR); BACTERIA, URINE AUTO NEGATIVE (NEGATIVE); BILIRUBIN, URINE AUTO NEGATIVE (NEGATIVE); BLOOD, URINE BLOOD NEGATIVE (NEGATIVE); COLOR, URINE YELLOW (YELLOW); GLUCOSE, URINE (UA) AUTO NEGATIVE (NEGATIVE); KETONE, URINE AUTO NEGATIVE (NEGATIVE); LEUKOCYTE ESTERASE, URINE AUTO TRACE (NEGATIVE); MUCUS, URINE SMALL (NEGATIVE); NITRITE, URINE AUTO NEGATIVE (NEGATIVE); PROTEIN, URINE AUTO NEGATIVE (NEGATIVE); RBC, URINE AUTO 2 /HPF (0-3); SPECIFIC GRAVITY URINE AUTO 1.011 (1.002-1.035); SQUAMOUS EPITHELIAL CELL UR AU 0 /HPF (0-6); TRANSITIONAL EPITHELIAL AUTO <1 /HPF; UROBILINOGEN, URINE AUTO 0.2 mg/dL (0.0-2.0); WBC, URINE AUTO 4 /HPF (0-3)
== END ==
LOC: SKLAB5 11:18
PROVIDERS: ATTEND Internal Medicine
DX: D64.9 Anemia, unspecified (principal); Z79.899 Other long term (current) drug therapy

== ENCOUNTER → 2018-07-31 | Outpatient (REF) | payer MEDICARE, MEDICAID ==
[2018-07-31 15:21] LABS: HEMATOCRIT 29.6 % (42.0-52.0); HEMOGLOBIN 9.7 g/dl (13.5-17.5); MEAN CORPUSCULAR HEMOGLOBIN 32.3 pg (27.0-33.0); MEAN CORPUSCULAR HGB CONC 32.8 g/dl (32.0-36.5); MEAN CORPUSCULAR VOLUME 98.7 fl (80.0-96.0); PLATELET COUNT, AUTOMATED 133 10^3/uL (150-450); WHITE BLOOD COUNT 13.4 10^3/uL (4.0-10.0)
--- NOTE | 2018-07-31 16:48 | REP ---
Portable chest x-ray: Sitting two views: History: Shortness of breath. Comparison study June 24, 2018. Findings: There is a diffuse interstitial fibrosis pattern again noted in the lung wilson. No acute infiltrate is seen. Heart is not enlarged. Oxygen delivery tubing is seen. There is an intramedullary naomi in the left humerus. Diffuse osteopenia. There are two or three left lower lateral rib fractures noted incidentally. These are just visible at the edge of the field of view of the chest CT from June 20, 2018. Impression: Diffuse interstitial fibrosis pattern in the lung wislon. No acute infiltrate is seen. Electronically Signed by Barak Perkins MD 07/31/2018 04:52 P
--- NOTE | 2018-08-01 07:30 | ECGEPIP ---
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
== END ==
LOC: SKLAB5 14:18
PROVIDERS: ATTEND Internal Medicine
DX: R06.02 Shortness of breath (principal); R29.6 Repeated falls; R50.9 Fever, unspecified; D72.829 Elevated white blood cell count, unspecified; Z79.899 Other long term (current) drug therapy

== ENCOUNTER → 2018-07-31 | Outpatient (REF) | payer MEDICARE, MEDICAID | LOC: SKLAB5 18:40 | PROVIDERS: ATTEND Internal Medicine | DX: R06.02 Shortness of breath (principal); R50.9 Fever, unspecified; D72.829 Elevated white blood cell count, unspecified ==

== ENCOUNTER → 2018-08-01 | Outpatient (REF) | payer MEDICARE, MEDICAID ==
[2018-08-01 08:05] LABS: HEMATOCRIT 27.7 % (42.0-52.0); MEAN CORPUSCULAR HGB CONC 32.5 g/dl (32.0-36.5); MEAN CORPUSCULAR VOLUME 98.6 fl (80.0-96.0); PLATELET COUNT, AUTOMATED 117 10^3/uL (150-450); RED BLOOD COUNT 2.81 10^6/uL (4.30-6.10); WHITE BLOOD COUNT 9.6 10^3/uL (4.0-10.0)
[2018-08-01 10:27] LABS: CALCIUM LEVEL 8.3 MG/DL (8.8-10.2); CREATININE FOR GFR 1.24 MG/DL (0.70-1.30); GLOMERULAR FILTRATION RATE 59.3 (>35)
== END ==
LOC: SKLAB5 07:10
PROVIDERS: ATTEND Internal Medicine
DX: A41.9 Sepsis, unspecified organism (principal)

== ENCOUNTER → 2018-08-02 | Outpatient (REF) | payer MEDICARE, MEDICAID ==
[2018-08-02 08:00] LABS: HEMATOCRIT 26.8 % (42.0-52.0); HEMOGLOBIN 8.6 g/dl (13.5-17.5); MEAN CORPUSCULAR HEMOGLOBIN 31.7 pg (27.0-33.0); MEAN CORPUSCULAR HGB CONC 32.1 g/dl (32.0-36.5); MEAN CORPUSCULAR VOLUME 98.9 fl (80.0-96.0); PLATELET COUNT, AUTOMATED 113 10^3/uL (150-450); RED BLOOD COUNT 2.71 10^6/uL (4.30-6.10); WHITE BLOOD COUNT 7.3 10^3/uL (4.0-10.0)
[2018-08-02 08:28] LABS: CALCIUM LEVEL 8.6 MG/DL (8.8-10.2); CREATININE FOR GFR 1.27 MG/DL (0.70-1.30); GLOMERULAR FILTRATION RATE 57.7 (>35)
== END ==
LOC: SKLAB5 07:43
PROVIDERS: ATTEND Internal Medicine
DX: A41.9 Sepsis, unspecified organism (principal); I95.9 Hypotension, unspecified

== ENCOUNTER → 2018-08-04 | Outpatient (REF) ==
[2018-08-04 14:49] LABS: CALCIUM LEVEL 9.6 MG/DL (8.8-10.2); CREATININE FOR GFR 1.35 MG/DL (0.70-1.30); GLOMERULAR FILTRATION RATE 53.7 (>35); POTASSIUM SERUM 4.1 MEQ/L (3.5-5.1)
== END ==
LOC: SKLAB5 11:59
PROVIDERS: ATTEND Internal Medicine
DX: J18.9 Pneumonia, unspecified organism (principal)

== ENCOUNTER → 2018-08-17 | Outpatient (REF) ==
[2018-08-17 11:33] LABS: CALCIUM LEVEL 9.5 MG/DL (8.8-10.2); CREATININE FOR GFR 1.34 MG/DL (0.70-1.30); GLOMERULAR FILTRATION RATE 54.2 (>35); POTASSIUM SERUM 4.1 MEQ/L (3.5-5.1)
== END ==
LOC: SKLAB5 08:48
PROVIDERS: ATTEND Internal Medicine
DX: I50.9 Heart failure, unspecified (principal)

== ENCOUNTER → 2018-08-25 | Outpatient (REF) | LOC: SKLAB5 18:22 | PROVIDERS: ATTEND Internal Medicine | DX: R73.01 Impaired fasting glucose (principal) ==

== ENCOUNTER → 2018-08-27 | Outpatient (REF) | payer MEDICARE, MEDICAID | LOC: SKLAB5 16:40 | PROVIDERS: ATTEND Internal Medicine | DX: R73.01 Impaired fasting glucose (principal) ==

== ENCOUNTER → 2018-08-29 | Outpatient (REF) ==
[2018-08-29 13:45] LABS: HEMATOCRIT 31.3 % (42.0-52.0); HEMOGLOBIN 10.5 g/dl (13.5-17.5); MEAN CORPUSCULAR HEMOGLOBIN 31.3 pg (27.0-33.0); MEAN CORPUSCULAR HGB CONC 33.5 g/dl (32.0-36.5); MEAN CORPUSCULAR VOLUME 93.4 fl (80.0-96.0); PLATELET COUNT, AUTOMATED 157 10^3/uL (150-450); RED BLOOD COUNT 3.35 10^6/uL (4.30-6.10); WHITE BLOOD COUNT 12.3 10^3/uL (4.0-10.0)
--- NOTE | 2018-08-29 15:00 | REP ---
Clinical: Right foot wound. Evaluate for possible osteomyelitis. Technique: AP, lateral, bilateral oblique views of the right foot. Findings: Osseous structures demonstrate advanced osteopenia and generalized age-related arthritic changes. No acute fracture dislocation. No significant periosteal reaction or osseous abnormalities appreciated to suspect osteomyelitis by radiographic evaluation. Overlying soft tissues are grossly unremarkable and without obvious subcutaneous emphysema or radiodense foreign body. Lateral view demonstrates small calcaneal heal spur. Evidence for peripheral vascular disease. Impression: Osteopenia and generalized degenerative changes. No obvious radiographic evidence to suggest osteomyelitis. Electronically Signed by Thomas Landaverde MD 08/29/2018 02:51 P
[2018-08-29 15:12] LABS: ERYTHROCYTE SEDIMENTATION RATE 107 mm/hr (0-20)
== END ==
LOC: SKLAB5 11:59
PROVIDERS: ATTEND Internal Medicine
DX: E11.9 Type 2 diabetes mellitus without complications (principal); M86.9 Osteomyelitis, unspecified

== ENCOUNTER → 2018-08-31 | Outpatient (REF) ==
[~2018-08-31] MED LIST changes: -/ADVA50050 INH; -/AMIO20TA; -/NITR4TASL SL; -/PANT40TA; -/PANT40TA OR; -/TAMS4CA; -/TAMS4CA OR; -/WARF25TA; -/WARF2TA; -/WARF2TA OR; -/WARF2TA PO; -/WARF3TA; -/WARF3TA OR; +ACET-716 PO; -ACET30TAB PO; +ADVA1AER2 INH; +AMIO1TAB; +COUM1TAB16; +COUM1TAB16 OR; +COUM1TAB16 PO; +COUM1TAB18; +COUM1TAB19; +COUM1TAB19 OR; +FLOM0.4C39; +FLOM0.4C39 OR; +METO-743; +METO-743 OR; +NITR0.4S SL; +PROT1TAB2; +PROT1TAB2 OR; -TOPR50TA; -TOPR50TA OR
[2018-08-31 09:02] LABS: HEMATOCRIT 31.8 % (42.0-52.0); HEMOGLOBIN 10.6 g/dl (13.5-17.5); MEAN CORPUSCULAR HEMOGLOBIN 31.5 pg (27.0-33.0); MEAN CORPUSCULAR HGB CONC 33.3 g/dl (32.0-36.5); MEAN CORPUSCULAR VOLUME 94.4 fl (80.0-96.0); PLATELET COUNT, AUTOMATED 175 10^3/uL (150-450); RED BLOOD COUNT 3.37 10^6/uL (4.30-6.10); WHITE BLOOD COUNT 10.6 10^3/uL (4.0-10.0)
[2018-08-31 10:39] LABS: DIGOXIN LEVEL 1.4 NG/ML (0.5-2.0)
== END ==
LOC: SKLAB5 08:06
PROVIDERS: ATTEND Internal Medicine
DX: N18.9 Chronic kidney disease, unspecified (principal); I48.91 Unspecified atrial fibrillation

== ENCOUNTER 2018-09-13 13:13 | Emergency (ER) | payer MEDICARE, MEDICAID ==
[2018-09-13] MEDS ORDERED: CALCCHW4 PO (14:30)
[2018-09-13] MEDS ORDERED: DOCU100C17 PO (14:30)
[2018-09-13] MEDS ORDERED: ELIQ2.5T PO (14:30)
[2018-09-13] MEDS ORDERED: ASPI81CH48 PO (14:30)
[2018-09-13] MEDS ORDERED: TRAD5TAB PO (14:30)
[2018-09-13] MEDS ORDERED: MIRA3350 PO (14:30)
[2018-09-13] MEDS ORDERED: SENN1TAB36 PO (14:30)
[2018-09-13] MEDS ORDERED: ENSU1LIQ36 PO (14:30)
[2018-09-13] MEDS ORDERED: BASA100I SC (14:30)
[2018-09-13] MEDS ORDERED: ACET-716 PO (14:50)
[2018-09-13] MEDS ORDERED: ACET1TAB55 PO (14:50)
[2018-09-13] MEDS ORDERED: MOM30SS PO (14:50)
--- NOTE | 2018-09-13 15:18 | REP ---
CT Head without contrast HISTORY: Fall COMPARISON: 01/03/2013 Areas of decreased attenuation are present in the periventricular white matter. This represents small-vessel ischemic disease. There is no intraparenchymal hemorrhage, acute infarct, mass or midline shift. The ventricular system and cortical sulci as well as subarachnoid space in the posterior fossa are dilated consistent with mild volume loss. There is no extra cerebral collection. There is no fracture. Mucosal thickening is present in the left sphenoid sinus. IMPRESSION: 1. Small-vessel ischemic disease. 2. Mild volume loss. Electronically Signed by Suleman Moore MD 09/13/2018 03:10 P
--- NOTE | 2018-09-13 15:24 | REP ---
CT cervical spine without contrast HISTORY: Fall COMPARISON: None There is no acute fracture or subluxation. Disc bulges with associated osteophyte formation are present at the C2-3 and C4-5 levels. Disc bulges are present at the C3-4, C5-6 and C6-7 levels. There is minimal narrowing of the spinal canal. Uncinate process and/or facet hypertrophy are present at the C3-4 through C7-T1 levels. These findings produce minimal to mild narrowing of the neural foramina. The C4-5 through C7-T1 intervertebral discs are decreased in height consistent with disc degeneration. There are 2 mm of anterior subluxation of C7 on T1. IMPRESSION: 1. There is no acute fracture or subluxation. 2. There is cervical spondylosis at the C2-3 through C7-T1 levels. Electronically Signed by Suleman Moore MD 09/13/2018 03:16 P
[2018-09-13] MEDS ORDERED: LIDOCAINE 1% MDV 20ML VIAL SC ONE (17:00)
[2018-09-13] MEDS ORDERED: ADACEL/BOOSTRIX VACCINE (DIPHTH/PERTUSS/ACELL/TETANUS)0.5ML SYR (90715) IM ONE (17:30)
[2018-09-13 17:47] VITALS: BP 113/58
== END 2018-09-13 18:35 | disposition home or self-care (01) ==
LOC: M ED 13:13 → EDBD 13:13 → M ED 18:35
DX: S01.81XA Laceration without foreign body of other part of head, initial encounter (principal); W22.8XXA Striking against or struck by other objects, initial encounter; Y92.122 Bedroom in nursing home as the place of occurrence of the external cause; Y93.89 Activity, other specified; Y99.9 Unspecified external cause status; E11.9 Type 2 diabetes mellitus without complications; I50.9 Heart failure, unspecified; G47.30 Sleep apnea, unspecified; N40.0 Benign prostatic hyperplasia without lower urinary tract symptoms; M10.9 Gout, unspecified; K21.9 Gastro-esophageal reflux disease without esophagitis; J44.9 Chronic obstructive pulmonary disease, unspecified; L40.9 Psoriasis, unspecified; M47.812 Spondylosis without myelopathy or radiculopathy, cervical region; M47.813 Spondylosis without myelopathy or radiculopathy, cervicothoracic region; Z79.82 Long term (current) use of aspirin; Z79.4 Long term (current) use of insulin; Z79.899 Other long term (current) drug therapy; Z88.8 Allergy status to other drugs, medicaments and biological substances

== ENCOUNTER → 2018-09-21 | Outpatient (REF) | payer MEDICARE, MEDICAID ==
[~2018-09-21] MED LIST changes: +ACET1TAB55 PO; +ASPI81CH48 PO; +BASA100I SC; +CALCCHW4 PO; +DOCU100C17 PO; +ELIQ2.5T PO; +ENSU1LIQ36 PO; +MIRA3350 PO; +MOM30SS PO; +SENN1TAB36 PO; +TRAD5TAB PO
[2018-09-21 18:49] LABS: PERCENT SATURATION 14.7 % (19.7-50.0)
== END ==
LOC: M LAB REF 17:36
PROVIDERS: ATTEND Internal Medicine
DX: D50.9 Iron deficiency anemia, unspecified (principal)

== ENCOUNTER → 2018-09-29 | Outpatient (CLI) | payer MEDICARE, MEDICAID ==
--- NOTE | 2018-09-29 23:50 | ECWPNPC ---
PATIENT NAME: TY MARIE : 1935 GENDER: MALE VISIT DATE: 09/29/2018 DISCHARGE DATE: 09/29/18 1232 VISIT LOCKED DATE TIME: PHYSICIAN: ALCON KAUR RESOURCE: ALCON KAUR REASON FOR APPOINTMENT 1. BACK PAIN HISTORY OF PRESENT ILLNESS HISTORY OF PRESENT ILLNESS: PAIN THE PATIENT DESCRIBES THE PAIN... FALL RISK SCREENING: SCREENING :NO FALLS REPORTED IN THE LAST YEAR CURRENT MEDICATIONS TAKING ALLOPURINOL 100 MG TABLET 1 TABLET ORALLY TWICE A DAY TAKING CALCIUM 600 MG TABLET 1TAB ORALLY BID TAKING LOVASTATIN 10 MG TABLET 1 TABLET WITH A MEAL ORALLY ONCE A DAY TAKING MULTIVITAMINS TABLET 1TAB ORALLY DAILY TAKING POTASSIUM CHLORIDE 10 MEQ CAPSULE EXTENDED RELEASE 2 CAPSULE ORALLY TWICE A DAY TAKING DIGOXIN 125 MCG TABLET 1 TABLET ORALLY ONCE A DAY TAKING FISH OIL 1000 MG CAPSULE 1 CAPSULE ORALLY BID TAKING LEVOTHYROXINE SODIUM 125 MCG TABLET 1 TABLET ON AN EMPTY STOMACH IN THE MORNING ORALLY ONCE A DAY TAKING MULTAQ 400 MG TABLET 1 TABLET WITH MEALS ORALLY TWICE A DAY TAKING POLYETHYLENE GLYCOL POWDER 17MG Q OTHER DAY TAKING OMEPRAZOLE 20MG 20MG TABLET 1CAP ORAL DAILY TAKING NITROSTAT 0.4 MG TABLET SUBLINGUAL SUBLINGUAL DIRECTED TAKING JANUVIA 50 MG TABLET 1 TAB ORALLY ONCE A DAY TAKING METFORMIN HCL 1000 MG TABLET 1 TABLET WITH MEALS ORALLY TWICE A DAY TAKING ACETAMINOPHEN 500 MG TABLET 1 TABLET NEEDED ORALLY EVERY 6 HRS PRN PAIN OR FEVER MDD=4 TAKE WITH TRAMADOL TAKING TRULICITY 0.75 MG/0.5ML SOLUTION PEN-INJECTOR 0.5 ML SUBCUTANEOUS WEEKLY TAKING FERROUS GLUCONATE 324 (38 FE) MG TABLET ORALLY TAKING MELATONIN 10 MG TABLET 1 TAB ORALLY ONCE DAILY TAKING CHELSEA ALLERGY 180 MG TABLET 1 TABLET ORALLY ONCE A DAY TAKING METHOTREXATE 2.5 MG TABLET 7 TABS ORALLY EVERY TUE TAKING FOLIC ACID 1 MG TABLET 1 TABLET ORALLY ONCE A DAY TAKING SYSTANE 0.4-0.3 % SOLUTION 1 DROP INTO AFFECTED EYE NEEDED OPHTHALMIC 24 TIME(S) A DAY TAKING ONDANSETRON 4 MGS 1 TAB ORAL NEEDED FOR NAUSEA TAKING MILK OF MAGNESIA 400 MG/5ML SUSPENSION 5 ML NEEDED ORALLY FOUR TIMES A DAY TAKING TORSEMIDE 20 MG TABLET 2 TABS ORALLY DAILY TAKING TORSEMIDE 20 MG TABLET 1 ORALLY AT 1400 DAILY TAKING TRIAMCINOLONE ACETONIDE 0.025 % CREAM 1 APPLICATION TO AFFECTED AREA EXTERNALLY NEEDED TAKING NYSTATIN 083202 UNIT/GM CREAM 1 APPLICATION TO AFFECTED AREA EXTERNALLY TWICE A DAY TAKING GUAIFENESIN-DM 100-10 MG/5ML SYRUP 10 ML NEEDED ORALLY EVERY 4 HRS TAKING ASPIRIN EC 81 MG TABLET DELAYED RELEASE 1 TABLET ORALLY ONCE A DAY TAKING MORPHINE SULFATE ER 15 MG TABLET EXTENDED RELEASE 1 TABLET ORALLY TAKE 1 TAB AT 06 AM, AND 1 TAB AT HS. CHRONIC PAIN MDD=2 TAKING TYLENOL WITH CODEINE #3 300-30 MG TABLET 1 TABLET NEEDED ORALLY EVERY 6 HRS NOT-TAKING ACETAMINOPHEN-CODEINE #4 300-60 MG TABLET 1 TABLET NEEDED ORALLY Q8H PRN MDD3 NOT-TAKING DOCUSATE SODIUM 100 MG CAPSULE 1 CAPSULE ORALLY BID NOT-TAKING CALCIPOTRIENE 0.005 % OINTMENT 1 APPLICATION TO AFFECTED AREA EXTERNALLY BID FOR PSORASIS NOT-TAKING OXYCODONE-ACETAMINOPHEN 5-325 MG TABLET 1 TABLET NEEDED ORALLY EVERY 6 HRS PRN PAIN MDD=4 NOT-TAKING COLACE 200 CAPSULE 1 CAPSULE NEEDED ORALLY TWICE DAILY, NOTES: DUPLICATE NOT-TAKING KETOCONAZOLE 2 % CREAM 1 APPLICATION TO AFFECTED AREA EXTERNALLY ONCE A DAY NOT-TAKING NORCO 10-325 MG TABLET 1 TABLET NEEDED ORALLY EVERY 6 HRS PRN PAIN MDD=4 NOT-TAKING FUROSEMIDE 40 MG TABLET 1 TABLET ORALLY DAILY IN THE AM, NOTES: IN AM NOT-TAKING ELIQUIS 5MG TABLET 1TAB ORAL TWICE DAILY NOT-TAKING HYDROCODONE-ACETAMINOPHEN 10-325 MG TABLET 1 TAB ORALLY EVERY 4- 6 HRSMDD4 NOT-TAKING LASIX 20 MG TABLET 1 TABLET ORALLY ONCE A DAY IN THE AFTERNOON, NOTES: IN AFTERNOON NOT-TAKING MECLIZINE HCL 25 MG TABLET CHEWABLE 1 TABLET ORALLY THREE TIMES A DAY PRN NOT-TAKING ZOLPIDEM TARTRATE 12.5 MG TABLET EXTENDED RELEASE 2 TABLET AT BEDTIME NEEDED ORALLY ONCE A DAY NOT-TAKING TAMSULOSIN HCL 0.4 MG CAPSULE 1 CAPSULE 30 MINUTES AFTER THE SAME MEAL EACH DAY ORALLY ONCE A DAY NOT-TAKING SPIRONOLACTONE 25 MG TABLET 1 TABLET ORALLY ONCE A DAY MEDICATION LIST REVIEWED AND RECONCILED WITH THE PATIENT PAST MEDICAL HISTORY BPH HYPERLIPIDEMIA DVT GOUT KIDNEY STONES PNEUMONIA HYPERTENSION CHF ? TB COPD HTN AFIB DM TYPE 2 HYPOTHYROID DRY EYES PSORIASIS INSOMNIA CHRONIC PAIN SYNDROME CONSTIPATION REBEKAH HEART FAILURE UNSPECIFIED ALLERGIES INDOCIN: HALLUCINATION - SIDE EFFECTS SURGICAL HISTORY TURP CATARACT CYSTOSCOPY SEVERAL LEFT ARM SURG AND TONSILLECTOMY DISTANT PAST LITHOTRIPSY FAMILY HISTORY FATHER: MOTHER: 2 BROTHER(S) , 2 SISTER(S) . 2 SON(S) , 4 DAUGHTER(S) . SOCIAL HISTORY GENERAL: TOBACCO USE ARE YOU A:FORMER SMOKER HOW LONG HAS IT BEEN SINCE YOU LAST SMOKED?> 10 YEARS LATEX QUESTIONNAIRE LATEX ALLERGY : HAVE YOU EVER DEVELOPED ANY TYPE OF REACTION AFTER HANDLING LATEX PRODUCTS SUCH RUBBER GLOVES, CONDOMS, DIAPHRAGMS, BALLOONS, SOCKS, OR UNDERWEAR?NO LATEX ALLERGY : HAVE YOU EVER DEVELOPED ANY TYPE OF REACTION DURING OR AFTER DENTAL APPOINTMENT, VAGINAL/RECTAL EXAMINATION, SURGICAL PROCEDURE, OR ANY OTHER EXPOSURE?NO LATEX RISK : HAVE YOU EVER HAD ANY DIFFICULTY BREATHING OR HIVES AFTER EATING OR HANDLING ANY FRUITS, OR VEGETABLES; SUCH KIWI, BANANAS, STONE FRUITS, OR CHESTNUTSNO LATEX RISK : DO YOU HAVE A PREVIOUS PERSONAL HISTORY OF MORE THAN NINE SURGERIES, SPINA BIFIDA, OR REPEATED CATHERTIZATIONS? NO LATEX RISK : ARE YOU FREQUENTLY EXPOSED TO LATEX PRODUCTS IN YOUR OCCUPATION?NO DATE ASKED : 09/29/2018 BMI CARE GOAL FOLLOW-UP BELOW NORMAL BMI FOLLOW-UPDIETARY EDUCATION FOR WEIGHT GAIN ALCOHOL SCREENING DID YOU HAVE A DRINK CONTAINING ALCOHOL IN THE PAST YEAR?NO POINTS0 INTERPRETATIONNEGATIVE RECREATIONAL DRUG USE DRUG USE?NO PATIENT DENIES ABUSE OR MISSUSED OF ANY MEDICATION. PATIENT DENIES USE OF ANY ILLEGAL SUBSTANCE INCLUDING MARIJUANA OR COCAINE. TAOIST [id number] [place] NO SPIRITISM BELIEFS THAT WOULD IMPACT HEALTH CARE. LANGUAGE LANGUAGES SPOKEN:[place] ISLANDER LEARNING BARRIERS / SPECIAL NEEDS HEARING IMPAIRED?YES :HEARING AIDES VISION IMPAIRED?YES :CORRECTIVE LENSES COGNITIVELY IMPAIRED?NO SPECIAL DEVICES?YES :WHEELCHAIR OTHERS AT HOME: LIVES AT THE [place]. NEW PATIENT PAIN DIARY FROM 0-10, WHAT LEVEL IS YOUR PAIN TODAY?7 PAIN CLINIC PFS, CLERGY, PUBLIC HEALTH REFERRALS PFS REFERRAL NEEDED?NO CLERGY REFERRAL NEEDED?NO PUBLIC HEALTH REFERRAL NEEDED?NO WAS THE PROVIDER NOTIFIED OF ANY PERTINENT INFO?YES HAS THE PATIENT BEEN EDUCATED REGARDING HIS/HER PLAN OF CARE?YES HAS THE PATIENT BEEN EDUCATED REGARDING PAIN, THE RISK FOR PAIN, THE IMPORTANCE OF EFFECTIVE PAIN MANAGEMENT, AND THE PAIN ASSESSMENT PROCESS?YES ADVANCE DIRECTIVE ADVANCE DIRECTIVE DISCUSSED WITH PATIENT:YES HCP - MARITZA MARIE (DAUGHTER) [phone] PATIENT IS NOT A CURRENT SMOKER OR DOES NOT ABUSE ALCOHOL.REVIEWED WITH PATIENT 02/23/18 1118 05/25/18 REVIEWED WITH PT. AD. HOSPITALIZATION/MAJOR DIAGNOSTIC PROCEDURE SURGERY RELATED REVIEW OF SYSTEMS REVIEWED BY: PROVIDER: ALCON MATTSON . CONSTITUTIONAL: ANY CHANGE IN YOUR MEDICAL CONDITION? NO . CHILLS NO . FEVER NO . INFECTION: DO YOU HAVE NEW INFECTIONS? NO . DO YOU HAVE HISTORY OF MRSA? NO . MUSCULOSKELETAL: ANY NEW PATTERNS OF PAIN OR NUMBNESS? NO . GASTROENTEROLOGY: ANY NEW CHANGE IN BOWEL CONTROL? YES, PT STATES THAT HE IS LACKING CONTROL . GENITOURINARY: ANY NEW CHANGE IN BLADDER CONTROL? YES, PT STATES THAT HE IS INCONTINENT . IS THERE A CHANCE YOU COULD BE ? NO . HEMATOLOGY/LYMPH: DO YOU TAKE ANY BLOOD THINNERS? (FOR EXAMPLE- COUMADIN, PLAVIX, AGGRENOX, PLATEL, PRADAXA, OR XARELTO) YES . WHEN WAS YOUR LAST DOSE? DATE: TIME: . NEUROLOGY: HAVE YOU FALLEN IN THE PAST 12 MONTHS? NO . ANY NEW EXTREMITY NUMBNESS OR WEAKNESS? NO . CARDIOLOGY: DO YOU HAVE A PACEMAKER OR DEFIBRILLATOR? NO . RESPIRATORY: HAVE YOU BEEN SICK IN THE PAST WEEK? NO . FEVER NO . FLU LIKE SYMPTOMS? NO . COUGH NO . INTEGUMENTARY: DO YOU HAVE ANY RASHES OR OPEN SORES? YES, MULTIPLE SORES ON UPPER EXTREMITIES, IN VARIOUS STAGES OF HEALING. . ALLERGIC/IMMUNO: ARE YOU ALLERGIC TO IV DYE? NO . ANY NEW ALLERGIES? NO . PSYCHIATRIC: DO YOU HAVE THOUGHTS OF HURTING YOURSELF OR SOMEONE ELSE? NO . ARE YOU ABUSED, NEGLECTED, OR IN AN UNSAFE ENVIRONMENT? NO . ENDOCRINOLOGY: ARE YOU DIABETIC? YES, MANAGED WITH DIET AND INSULIN . OTHER: DO YOU NEED ANY PRESCRIPTIONS? NO . IF YES, PLEASE LIST: ____ . ANY NEW PROBLEMS WITH YOUR MEDICATIONS? YES . WHEN DID YOU LAST EAT? ____ . WHEN DID YOU LAST DRINK? ____ . WHAT DID YOU LAST DRINK? ____ . NAME OF PERSON DRIVING YOU HOME? ____ . DO YOU HAVE ANY OTHER QUESTIONS OR CONCERNS PT STATES THAT HE IS HAVING INCREASED PAIN IN LOWER BACK AND BUTTOCKS . VITAL SIGNS WT 186 LBS, HT 74", BMI 23.88 INDEX, BP 133/65 MM HG, HR 80 /MIN, RR 18 /MIN, TEMP 98.0 F, OXYGEN SAT % 98%, SAFE IN ENV? (Y/N) Y, NA INITIALS MS 11:38, REVIEWED BY: MARIO. EXAMINATION GENERAL EXAMINATION: GENERAL APPEARANCE: AWAKE,ALERT ,PLEAASANT . PSYCH AFFECT NORMAL . LUNGS: LUNG RAE ARE CLEAR TO AUSCULTATION BILATERALLY. GOOD MOVEMENT OF AIR . HEART:GR 2/6 SYSTOLIC MURMUR.REGULAR RATE/RHYTHM. 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 CHRONIC PAIN MDD=2 CONTINUE TYLENOL WITH CODEINE #3 TABLET, 300-30 MG, 1 TABLET NEEDED, ORALLY, EVERY 6 HRS START MOVANTIK TABLET, 25 MG, 1 TABLET IN THE MORNING, ORALLY, ONCE A DAY, 30 DAY(S), 30, REFILLS 5 PROCEDURE CODES FA211 ESTABILISHED PATIENT [facility] CHARGE DISPOSITION & COMMUNICATION FOLLOW UP 2 MONTHS ELECTRONICALLY SIGNED BY SRINIVASAN PILLAI ON 09/29/2018 AT 01:53 PM EDT DISCLAIMER : THIS IS A VISIT SUMMARY EXTRACTED FROM THE [email or web address] CHART. IT IS NOT A COPY OF THE [employer] PROGRESS NOTE. JADED
== END ==
LOC: M PAIN 11:15
PROVIDERS: ATTEND Nurse Practitioner Family
DX: M46.96 Unspecified inflammatory spondylopathy, lumbar region (principal); E11.9 Type 2 diabetes mellitus without complications; E03.9 Hypothyroidism, unspecified; E78.5 Hyperlipidemia, unspecified; I11.0 Hypertensive heart disease with heart failure; L40.9 Psoriasis, unspecified; I50.9 Heart failure, unspecified; J44.9 Chronic obstructive pulmonary disease, unspecified; G47.33 Obstructive sleep apnea (adult) (pediatric); Z79.01 Long term (current) use of anticoagulants; Z79.4 Long term (current) use of insulin; Z79.899 Other long term (current) drug therapy; Z88.8 Allergy status to other drugs, medicaments and biological substances; Z87.891 Personal history of nicotine dependence; Z86.79 Personal history of other diseases of the circulatory system; Z87.39 Personal history of other diseases of the musculoskeletal system and connective tissue

== ENCOUNTER → 2018-10-02 | Outpatient (CLI) | payer MEDICARE, MEDICAID ==
--- NOTE | 2018-10-02 16:17 | REP ---
Left ankle series: Four views: History: Contusion. Comparison ankle radiographs are from September 24, 2011. Findings: There is diffuse osteopenia. Ankle mortise is intact. Mild medial and anterior soft tissue swelling is seen. There is mild plantar calcaneal spurring. Vascular calcification is noted. There is an old benign appearing periosteal reaction in the distal fibula unchanged from the 2012 study. Mild old is post traumatic deformity is seen in the proximal end of the fifth metatarsal consistent with a healed fracture in this location. Impression: No acute fracture noted. Chronic changes as above. Medial and anterior soft tissue swelling. Electronically Signed by Barak Perkins MD 10/02/2018 05:12 P
== END ==
LOC: M WUC 14:44
PROVIDERS: ATTEND Physician Assistant
DX: S90.02XA Contusion of left ankle, initial encounter (principal); X58.XXXA Exposure to other specified factors, initial encounter; Y92.89 Other specified places as the place of occurrence of the external cause; M85.89 Other specified disorders of bone density and structure, multiple sites

== ENCOUNTER → 2018-10-11 | Outpatient (CLI) | payer MEDICARE, MEDICAID ==
[~2018-10-11] MED LIST changes: +MORP30TASA PO; +MOVA1TAB2 PO
--- NOTE | 2018-10-11 14:50 | REP ---
Right lower extremity arterial Doppler ultrasound: Brachial artery peak systole: 140 mmHg. Dorsalis pedis peak systole: 120 mmHg FARM [employer]ER peak systole: 150 mmHg. DIPAK: 1.1 Peak Systolic Phasicity Velocity NIGHT ORDER SELECTOR 111 biphasic Profunda 108 biphasic SFA prox 112 biphasic SFA mid 190 biphasic SFA dist 105 biphasic Pop 64 biphasic CARLOTA prox 48 biphasic Tib/P tr 78 biphasic FARM [employer]ER pr 80 biphasic FARM [employer]ER dst 120 biphasic CARLOTA dst 125 biphasic There is minimal atheromatous plaque, especially for patient age. No stenoses are identified. Electronically Signed by Mikhail Figueroa MD 10/11/2018 02:42 P
== END ==
LOC: M RAD 12:47
PROVIDERS: ATTEND Surgery
DX: L89.619 Pressure ulcer of right heel, unspecified stage (principal)

== ENCOUNTER 2018-10-13 09:48 | Inpatient (IN) | payer MEDICARE, MEDICAID ==
[2018-10-13] VITALS (7 sets, daily range): BP systolic 100–118; BP diastolic 50–60
[~2018-10-13] VITALS: Ht 188 cm; Wt 81.7 kg
[2018-10-13] MEDS: NS 1,000 ML IV SCH ×2 (09:45→11:35)
[~2018-10-13 09:48] MED LIST changes: -MORP30TASA PO; -MOVA1TAB2 PO
[2018-10-13] MEDS ORDERED: MORP30TASA PO (10:17)
[2018-10-13] MEDS ORDERED: MOVA1TAB2 PO (10:17)
[2018-10-13 11:08] LABS: BASO # 0.1 10^3/uL (0.0-0.2); BASO % 0.3 % (0.0-1.0); EOS # 0.1 10^3/uL (0.0-0.50); EOS % 0.5 % (0.0-3.0); HEMATOCRIT 18.2 % (42.0-52.0); LYMPH # 1.9 10^3/uL (1.5-4.5); LYMPH % 10.7 % (24.0-44.0); MEAN CORPUSCULAR HGB CONC 31.9 g/dl (32.0-36.5); MEAN CORPUSCULAR VOLUME 97.3 fl (80.0-96.0); MONO % 5.3 % (0.0-5.0); NEUTROPHILS # 14.3 10^3/uL (1.8-7.7); NEUTROPHILS % 79.2 % (36.0-66.0); PLATELET COUNT, AUTOMATED 199 10^3/uL (150-450); RED BLOOD COUNT 1.87 10^6/uL (4.30-6.10); WHITE BLOOD COUNT 18.1 10^3/uL (4.0-10.0)
[2018-10-13 11:11] LABS: HEMOGLOBIN 5.8 g/dl (13.5-17.5)
[2018-10-13 11:17] LABS: INR 1.45; PROTHROMBIN TIME 17.9 SECONDS (12.1-14.4)
[2018-10-13 11:33] LABS: ALBUMIN 2.7 GM/DL (3.2-5.2); BILIRUBIN,DIRECT 0.2 MG/DL (0.0-0.2); BILIRUBIN,TOTAL 0.4 MG/DL (0.2-1.0); CALCIUM LEVEL 8.7 MG/DL (8.8-10.2); CREATININE FOR GFR 1.77 MG/DL (0.70-1.30); GLOMERULAR FILTRATION RATE 39.3 (>35); POTASSIUM SERUM 4.3 MEQ/L (3.5-5.1); TOTAL PROTEIN 7.4 GM/DL (6.4-8.2)
[2018-10-13] MEDS ORDERED: NS 500 ML IV ONE (11:45)
[2018-10-13] MEDS: GASTROGRAFIN SOLUTION 30ML PO SCH (12:13)
--- NOTE | 2018-10-13 13:09 | REP ---
AP PORTABLE CHEST: 10/13/2018. Comparison: 07/31/2018, 06/17/2018. Clinical history: GI bleeding. Interstitial fibrosis noted throughout, heaviest in the bases and periphery with apical pleuroparenchymal scarring. No gross effusion, dense consolidation or parenchymal mass. The heart size unchanged. Aorta is calcified at the arch but unchanged. Airway intact. No gross aneurysm. No widening of the mediastinum. No lynda edema. Bones demineralized. Impression: 1. Diffuse interstitial fibrotic changes in the lung wilson, heaviest in the bases and periphery left slightly greater than right. All of this stable. No dense consolidation, effusion, gross cardiomegaly or edema. Electronically Signed by Dwight Louis MD 10/13/2018 05:11 P
[2018-10-13] MEDS ORDERED: GLUCOSE 4 GM CHEW TABLET PO PRN (14:15)
[2018-10-13] MEDS ORDERED: GLUCAGON FOR INJ 1 MG VIAL (J1610) SC PRN (14:15)
[2018-10-13] MEDS ORDERED: DEXTROSE 50% 50 ML SYRINGE IV PRN (14:15)
[2018-10-13 15:15] LABS: DIGOXIN LEVEL 1.7 NG/ML (0.5-2.0)
--- NOTE | 2018-10-13 16:44 | REP ---
CT ABDOMEN AND PELVIS WITH ORAL CONTRAST ONLY: 10/13/2018. Comparison 06/23/2018. Clinical history: Abdominal pain, GI bleed. Technique: Oral Gastrografin mixture per protocol. Scanning through the abdomen pelvis without IV contrast with coronal and sagittal reconstructions provided. Findings: CT abdomen: Fibrotic changes in the bases with peripheral basilar honeycombing as on previous CT. Heart enlarged with left atrial and ventricular enlargement. There is some calcifications in the aortic and mitral valve plane and some coronary calcifications visible. No hiatal hernia. Oral contrast in the stomach and small bowel loops. Liver not enlarged but does show some lobulated margins. No splenomegaly, focal hepatic or splenic lesion nor biliary dilatation. Gallbladder shows numerous calcified small stones with largest up to 7 mm in short axis. These are layering in the dependent portion of the gallbladder. No common duct stone or dilatation suggested. Pancreas without ductal dilatation, stone or mass. There is some mild pancreatic atrophy. No stone or adenopathy. There is a cyst abutting the tail of the pancreas lesser sac unchanged from May and about 2 cm, this is the same as seen on a CT in 2013 with contrast just a few millimeters larger. Small bowel loops are grossly intact. The colon likewise shows stool and gas scattered without dilatation and no inflammatory changes of the abdominal portion of the colon or small bowel loops. No mesenteric infiltration or edema nor adenopathy. Aorta has atherosclerotic calcifications. There is mild aneurysmal dilatation of the distal abdominal aorta about 3.2 cm, unchanged from May. No periaortic or retroperitoneal pathologic adenopathy left renal cyst. Right lower pole renal stone about 7 mm, unchanged. No hydronephrosis, hydroureter or ureteral stone on either side. Review of all CT slices shows no perforation, abscess or free air. Bone windows show spondylosis and vacuum phenomena at L5-S1 without compression deformity or destructive lesion. There is no spondylolysis. Visualized ribs unremarkable. CT pelvis: The lower lumbar facets, sacrum, iliac bones and hip show some degenerative changes. There is no fracture, destructive lesion. Distal ureters without dilatation or stone. The bladder is distended and has a vertical length of up to 20 cm, extending upward above the umbilicus. The maximum transverse diameter is 12.4 cm and AP diameter 10.9 cm. Distal left colon and sigmoid and rectum show no sign of colitis, diverticulitis, stricture or mass. Small bowel loops in the pelvis are unremarkable. There are no inflammatory changes about the cecum. No ventral or inguinal hernia nor pathologic inguinal adenopathy or pelvic adenopathy. Impression: 1. Cholelithiasis with multiple layering calcified stones in the gallbladder 7 mm. 2. Approximate 2 cm cyst abutting the pancreas at the pancreatic tail near the body within in the lesser sac region unchanged and only a few millimeters larger than the prior CT in 2014. This previously been evaluated and shown to be cyst by MRI at that time. No sign of colitis, diverticulitis, stricture, mass or inflammatory changes and small bowel. 7 mm lower pole stone of the right kidney. No hydronephrosis or hydroureter. Lower pole cyst left kidney. All of this stable. 3. Evidence for bladder outlet obstruction with an enlarged bladder 20 x 10.9 x 12.4 cm with the bladder extending at least 4 cm above the level of the umbilicus. I do not see abnormal wall thickening, stone or mass. 4. Mild aneurysmal dilatation distal abdominal aorta 3.1 cm AP diameter, unchanged. 5. Degenerative changes spine and pelvis. No fracture, destructive lesion. Electronically Signed by Dwight Louis MD 10/13/2018 05:18 P
[2018-10-13] MEDS ORDERED: HumaLOG INSULIN (NovoLOG) PER UNIT SC SCH ×2 (17:30→21:00)
[2018-10-13] MEDS: DRONEDARONE 400 MG TAB (MULTAQ) PO SCH (17:58)
--- NOTE | 2018-10-13 17:58 | HPEPDOC ---
[facility] Medical History & Physical Date of Admission October 13, 2018 Attending Physician: BRIAN VALENTE MD History and Physical CHIEF COMPLAINT: Bloody stool HISTORY OF PRESENT ILLNESS: Patient is an 82 year old white male resident of [facility] with a past medical history significant for HFpEF (Echo in 05/2018 w/ LVEF 60-65%), paroxysmal atrial fibrillation, IDDM, COPD, REBEKAH on CPAP, and gout who presented to the [facility] Emergency Department with complaint of numerous episodes of bloody stool. The patient states that yesterday he had noticed a significant amount of blood in his stool. He denied any abdominal pain at the time. He stated that since yesterday he has had multiple episodes of bright red blood. He is unable to quantify how many bowel movements or amount of blood but states "a lot of blood". He currently denied any shortness of breath or chest pain. He denies any lightheadedness. He denies any recent or long term care pharmacist NSAID use. The patient states that he is in the ER because he has blood in his stool. He otherwise denies any other symptoms. In the ER the patients laboratory studies demonstrated a Hbg of 5.8. Additionally, he was found to have a BUN of 44 and Cr of 1.77. He received an CT abdomen and pelvis which demonstrated no sign of colitis, diverticulitis, stricture, mass, or inflammatory changes. Given the patients acute blood loss anemia, he was admitted to hospitalist service for further evaluation and management PAST MEDICAL HISTORY: 1. HFpEF (LVEF 60-65%) 05/2018 2. COPD 3. REBEKAH on CPAP 4. GERD 5. Gout 6. Paroxysmal Atrial Fibrillation PAST SURGICAL HISTORY: NONE SOCIAL HISTORY: Patient is a current resident of the [facility]. He is a former smoker. He denies any other tobacco use. He denies alcohol use. He denies illicit drug use FAMILY HISTORY: Noncontributory ALLERGIES: Please see below. REVIEW OF SYSTEMS: CONSTITUTIONAL: Denies fevers, chills, nightsweats, unintentional weightloss or weightgain HEENT: Denies changes in vision. Denies dysphagia. Denies hematemesis. CARDIOVASCULAR: Denies chest pain or pressure. Denies palpitations or feelings of the heart racing RESPIRATORY: Denies shortness of breath. Denies cough. Denies hemoptysis. GASTROINTESTINAL: Denies abdominal pain. Admits to bright red blood in his stool for 2 days duration GENITOURINARY: Denies increased frequency. Denies dysuria SKIN: Denies any rashes or lesions MUSCULOSKELETAL: Admits to chronic low back pain NEUROLOGICAL: Denies changes in gait or speech. PSYCHIATRIC: Denies depression or anxiety ENDOCRINE: Denies heat intolerance or cold intolerance HEMATOLOGIC/LYMPHATIC: Denies easy bruising or bleeding. Denies history of blood clots in legs or lungs HOME MEDICATIONS: Please see below. PHYSICAL EXAMINATION: VITAL SIGNS: Temperature 97.3, pulse 100, respiratory rate 18 , blood pressure 94/50, pulse oximetry 100% on 2L NC GENERAL APPEARANCE: Patient is awake, alert and oriented. He does not appear to be in acute distress. He is lying comfortably in bed. He appears well nourished and well kept. HEENT: Atrumatic, normocephalic. Eyes are nonicteric. Trachea is midline. Dentition is fair. Mucous membranes are slightly dry. CARDIOVASCULAR: Irregularly irregular rhythm. Tachycardic rate. 2/6 systolic ejection murmur. No clicks or rubs. LUNGS: Fine crackles in the bases bilaterally. Good respiratory effort with prolonged expiratory phase. No wheezing. No rhonci ABDOMEN: Soft, slightly distended. Nontender to palpation. No rebound tenderness or guarding. Positive bowel sounds throughout. EXTREMITIES: 5 mm x 5 mm ulcer with an erythematous base present on the right great toe. No signs of cellulitis. No edema in lower extremities bilaterally. 2+ posterior tibial pulses bilaterally. 2+ radial pulses bilaterally NEUROLOGICAL: No focal neurological deficits PSYCHIATRIC: Mood and affect appear appropriate LABORATORY DATA: See below. IMAGING: AP PORTABLE CHEST: 10/13/2018. Comparison: 07/31/2018, 06/17/2018. Clinical history: GI bleeding. Interstitial fibrosis noted throughout, heaviest in the bases and periphery with apical pleuroparenchymal scarring. No gross effusion, dense consolidation or parenchymal mass. The heart size unchanged. Aorta is calcified at the arch but unchanged. Airway intact. No gross aneurysm. No widening of the mediastinum. No lynda edema. Bones demineralized. Impression: 1. Diffuse interstitial fibrotic changes in the lung wilson, heaviest in the bases and periphery left slightly greater than right. All of this stable. No dense consolidation, effusion, gross cardiomegaly or edema. Unreviewed DD: Dwight Louis MD 10/13/18 1208 DT: GILMA 10/13/18 1307 DS: CT ABDOMEN AND PELVIS WITH ORAL CONTRAST ONLY: 10/13/2018. Comparison 06/23/2018. Clinical history: Abdominal pain, GI bleed. Technique: Oral Gastrografin mixture per protocol. Scanning through the abdomen pelvis without IV contrast with coronal and sagittal reconstructions provided. Findings: CT abdomen: Fibrotic changes in the bases with peripheral basilar honeycombing as on previous CT. Heart enlarged with left atrial and ventricular enlargement. There is some calcifications in the aortic and mitral valve plane and some coronary calcifications visible. No hiatal hernia. Oral contrast in the stomach and small bowel loops. Liver not enlarged but does show some lobulated margins. No splenomegaly, focal hepatic or splenic lesion nor biliary dilatation. Gallbladder shows numerous calcified small stones with largest up to 7 mm in short axis. These are layering in the dependent portion of the gallbladder. No common duct stone or dilatation suggested. Pancreas without ductal dilatation, stone or mass. There is some mild pancreatic atrophy. No stone or adenopathy. There is a cyst abutting the tail of the pancreas lesser sac unchanged from May and about 2 cm, this is the same as seen on a CT in 2013 with contrast just a few millimeters larger. Small bowel loops are grossly intact. The colon likewise shows stool and gas scattered without dilatation and no inflammatory changes of the abdominal portion of the colon or small bowel loops. No mesenteric infiltration or edema nor adenopathy. Aorta has atherosclerotic calcifications. There is mild aneurysmal dilatation of the distal abdominal aorta about 3.2 cm, unchanged from May. No periaortic or retroperitoneal pathologic adenopathy left renal cyst. Right lower pole renal stone about 7 mm, unchanged. No hydronephrosis, hydroureter or ureteral stone on either side. Review of all CT slices shows no perforation, abscess or free air. Bone windows show spondylosis and vacuum phenomena at L5-S1 without compression deformity or destructive lesion. There is no spondylolysis. Visualized ribs unremarkable. CT pelvis: The lower lumbar facets, sacrum, iliac bones and hip show some degenerative changes. There is no fracture, destructive lesion. Distal ureters without dilatation or stone. The bladder is distended and has a vertical length of up to 20 cm, extending upward above the umbilicus. The maximum transverse diameter is 12.4 cm and AP diameter 10.9 cm. Distal left colon and sigmoid and rectum show no sign of colitis, diverticulitis, stricture or mass. Small bowel loops in the pelvis are unremarkable. There are no inflammatory changes about the cecum. No ventral or inguinal hernia nor pathologic inguinal adenopathy or pelvic adenopathy. Impression: 1. Cholelithiasis with multiple layering calcified stones in the gallbladder 7 mm. 2. Approximate 2 cm cyst abutting the pancreas at the pancreatic tail near the body within in the lesser sac region unchanged and only a few millimeters larger than the prior CT in 2014. This previously been evaluated and shown to be cyst by MRI at that time. No sign of colitis, diverticulitis, stricture, mass or inflammatory changes and small bowel. 7 mm lower pole stone of the right ki dney. No hydronephrosis or hydroureter. Lower pole cyst left kidney. All of this stable. 3. Evidence for bladder outlet obstruction with an enlarged bladder 20 x 10.9 x 12.4 cm with the bladder extending at least 4 cm above the level of the umbilicus. I do not see abnormal wall thickening, stone or mass. 4. Mild aneurysmal dilatation distal abdominal aorta 3.1 cm AP diameter, unchanged. 5. Degenerative changes spine and pelvis. No fracture, destructive lesion. Unreviewed DD: Dwight Louis MD 10/13/18 1356 DT: KELLEY 10/13/18 1639 DS: MICROBIOLOGY: Please see below. ASSESSMENT: Patient is an 82 year old male with a past medical history significa nt for HFpEF, COPD, REBEKAH, and atrial fibrillation who presented to the [facility] ER after 2 days of hematochezia. Patient was found to be rather asymptomatic however was hypotensive with a hemoglobin of 5.8. Patient was admitted to hospitalist service for suspected acute blood loss anemia secondary to a GI bleed. . PLAN: 1. Acute Blood Loss Anemia 2/2 Upper vs lower GI bleed -Patient has presented with a history of numerous episodes of bright red blood per rectum. He has been found to be hypotensive and with a hemoglobin of 5.8. The patient has denied any symptoms of lightheadedness, shortness of breath, or chest pain. His BUN is elevated which may suggest a possible upper GI etiology for his bleed however, he complaining of bright red blood which would suggest a lower GI source. Since arriving in the ER he has not had any additional bloody bowel movements. Will continue to monitor. -Patient was on Eliquis as an outpatient for his atrial fibrillation. This has been discontinued due to his acute blood loss. -Transfused 1 unit. Patient will be transfused an additional unit. Will trend H&H and transfuse as necessary. Goal of Hgb >7.0. -Patient has been fairly hypotensive despite his transfusion. If he continues to bleed and drop in Hgb and remain hypotensive we can consider Kcentra as a possible use to provide some reversal to his Eliquis. If patient does become unstable consider Emergent Upper endoscopy -NPO w/ exception to medication -Protonix 40mg IV BID -Case has been discussed with Screw Machine Operator jojo who will see the patient. Recommendations and assistance is greatly appreciated 2. Atrial Fibrillation -Patient has a history of atrial fibrillation. -Continue Digoxin and Multaq. He remains rate controlled -Holding Eliquis due to current acute blood loss anemia 3. IDDM -Patient is currently NPO. -Sliding Scale insulin Q6H fingersticks -Will resume home basal coverage 35 units of levemir once patient begins diet 4. Chronic Lower Back Pain -MS Cotin 30mg daily PO and 15mg QHS 5. Hypothyroidism -Continue Synthroid 6. Seasonal Allergies -Continue Melinda 7. DVT prophylaxis -Mechanical prophylaxis with TEDs and Sequentials Vital Signs Vital Signs Date Time Temp Pulse Resp B/P (MAP) Pulse Ox O2 Delivery O2 Flow Rate FiO2 10/13/18 15:40 99.1 95 14 118/60 (79) 99 2.0 10/13/18 15:23 Nasal Cannula Laboratory Data Labs 24H Laboratory Tests 2 10/13/18 10:43: Immature Granulocyte % (Auto) 4.0H, White Blood Count 18.1H, Red Blood Count 1.87L, Hemoglobin 5.8*L, Hematocrit 18.2L, Mean Corpuscular Volume 97.3H, Mean Corpuscular Hemoglobin 31.0, Mean Corpuscular Hemoglobin Concent 31.9L, Red Cell Distribution Width 15.1H, Platelet Count 199, Neutrophils (%) (Auto) 79.2H, Lymphocytes (%) (Auto) 10.7L, Monocytes (%) (Auto) 5.3H, Eosinophils (%) (Auto) 0.5, Basophils (%) (Auto) 0.3, Neutrophils # (Auto) 14.3H, Lymphocytes # (Auto) 1.9, Monocytes # (Auto) 1.0H, Eosinophils # (Auto) 0.1, Basophils # (Auto) 0.1, Nucleated Red Blood Cells % (auto) 0.2H, Prothrombin Time 17.9H, Prothromb Time International Ratio 1.45, Anion Gap 9, Glomerular Filtration Rate 39.3, Calcium Level 8.7L, Aspartate Amino Transf (AST/SGOT) 18, Alanine Aminotransferase (ALT/SGPT) 19, Alkaline Phosphatase 71, Total Bilirubin 0.4, Direct Bilirubin 0.2, Total Protein 7.4, Albumin 2.7L, Albumin/Globulin Ratio 0.57L, Lipase 89, Digoxin Level 1.7 CBC/BMP Laboratory Tests 10/13/18 10:43 Red Blood Count 1.87 L, Mean Corpuscular Volume 97.3 H, Mean Corpuscular Hemoglobin 31.0, Mean Corpuscular Hemoglobin Concent 31.9 L, Red Cell Distribution Width 15.1 H, Neutrophils (%) (Auto) 79.2 H, Lymphocytes (%) (Auto) 10.7 L, Monocytes (%) (Auto) 5.3 H, Eosinophils (%) (Auto) 0.5, Basophils (%) (Auto) 0.3, Neutrophils # (Auto) 14.3 H, Lymphocytes # (Auto) 1.9, Monocytes # (Auto) 1.0 H, Eosinophils # (Auto) 0.1, Basophils # (Auto) 0.1 Home Medications Scheduled Allopurinol (Allopurinol) 100 Mg Tab, 200 MG PO DAILY Apixaban (Eliquis) 2.5 Mg Tablet, 2.5 MG PO BID Aspirin (Aspirin) 81 Mg Tab.chew, 81 MG PO DAILY Calcium Carbonate/Vitamin D3 (Calcium 600 with Vit D Chew Tb) 1 Each Tab.chew, 1 CHW PO BID Digoxin (Digoxin) 125 Mcg Tab, 125 MCG PO DAILY Docusate Sodium (Docusate Sodium) 100 Mg Capsule, 200 MG PO QHS Dronedarone (Multaq) 400 Mg Tab, 400 MG PO BID Ferrous Gluconate (Ferrous Gluconate) 324 Mg Tab, 324 MG PO BID Fexofenadine HCl (Melinda Allergy) 180 Mg Tab, 180 MG PO DAILY Folic Acid (Folic Acid) 1 Mg Tab, 1 MG PO DAILY Insulin Glargine,Hum.rec.anlog (Basaglar Kwikpen U-100) 100 Unit/1 Ml Insuln.pen, 36 UNIT SC DAILY AT 0600 Levothyroxine Sodium (Levothyroxine Sodium) 125 Mcg Tab, 125 MCG PO DAILY AT 0600 Linagliptin (Tradjenta) 5 Mg Tablet, 5 MG PO DAILY Lovastatin (Lovastatin) 10 Mg Tab, 10 MG PO QHS Morphine Sulfate (Morphine Sulfate ER) 15 Mg Tabcr, 15 MG PO QHS Morphine Sulfate (Morphine Sulfate ER) 30 Mg Tablet.er, 30 MG PO DAILY Naloxegol Oxalate (Movantik) 25 Mg Tablet, 25 MG PO DAILY Dorothy-3/Dha/Epa/Fish Oil (Fish Oil EC 1,000 mg Softgel) 1 Cap Cap, 1 CAP PO BID Omeprazole (Omeprazole) 20 Mg Cap, 20 MG PO DAILY Potassium Chloride (K-Tab ER) 10 Meq Tab, 20 MEQ PO BID Sennosides/Docusate Sodium (Docusate Sodium-Senna Tablet) 1 Each Tablet, 2 TAB PO DAILY Torsemide (Torsemide) 20 Mg Tab, 40 MG PO DAILY Scheduled PRN Acetaminophen (Acetaminophen) 325 Mg Tablet, 650 MG PO Q4H PRN for PAIN Acetaminophen with Codeine (Acetaminophen-Cod #3 Tablet) 1 Each Tablet, 1 TAB PO QID PRN for PAIN Melatonin (Melatonin) 10 Mg Cap, 10 MG PO QHS PRN for INSOMNIA Milk Of Magnesia (Milk of Magnesia) 2,400 Mg/10 Ml Oral.susp, 30 ML PO DAILY PRN for CONSTIPATION Nitroglycerin (Nitrostat) 0.4 Mg Subl, 0.4 MG SL NITRO PRN for CHEST PAIN Polyethylene Glycol 3350 (Miralax) 119 Gm Powder, 17 GM PO DAILY PRN for CONSTIPATION Allergies Coded Allergies: Beta-Blockers (Beta-Adrenergic Bloc (Verified Allergy, Unknown, 09/13/18) spironolactone (Verified Allergy, Unknown, 09/13/18) warfarin (Verified Allergy, Unknown, 09/13/18) indomethacin (Verified Adverse Reaction, Intermediate, HALLUCINATIONS, 09/13/18) A-FIB/CHADSVASC A-FIB History Current/History of A-Fib/PAF?: Yes Current Oral Anticoagulant The: No Age/Risk Factor Scoring CHADSVASC: CHADSVASC Response (Comments) Value Age Risk Factor Age >/= 75 years old 2 Total 2 Treatment Treatment ordered: NONE Reason Anticoagulant not given: Current bleeding GME ATTESTATION GME ATTESTATION My faculty preceptor for this patient encounter was physically present during the encounter and was fully available. All aspects of the patient interview, examination, medical decision making process, and medical care plan development were reviewed and approved by the faculty preceptor. The faculty preceptor is aware and concurs with the plan as stated in the body of this note and will attest to such by his/her cosignature. ATTENDING NOTE I performed a history and physical examination of the patient and discussed their management with the resident. I reviewed the resident's note and agree with the documented findings and plan of care. MONIK AMBROSE DO October 13, 2018 17:57 BRIAN VALENTE MD October 15, 2018 09:11
[2018-10-13] MEDS: HumaLOG INSULIN (NovoLOG) PER UNIT SC SCH (18:01)
[2018-10-13] MEDS: PANTOPRAZOLE 40MG INJ (PROTONIX) (C9113) IV SCH (20:32)
[2018-10-13] MEDS: SIMVASTATIN 10 MG TAB PO SCH (20:32)
[2018-10-13] MEDS: MORPHINE 15 MG SA TAB PO SCH (20:56)
[2018-10-13] MEDS ORDERED: FERROUS GLUCONATE 324 MG TAB PO SCH (21:00)
[2018-10-13 21:07] LABS: HEMATOCRIT 19.6 % (42.0-52.0)
[2018-10-13 21:10] LABS: HEMOGLOBIN 6.6 g/dl (13.5-17.5)
[2018-10-14] VITALS (9 sets, daily range): BP systolic 96–115; BP diastolic 46–64
[2018-10-14] MEDS: HumaLOG INSULIN (NovoLOG) PER UNIT SC SCH ×4 (00:11→17:15)
[2018-10-14 03:09] LABS: HEMATOCRIT 20.6 % (42.0-52.0)
[2018-10-14 03:11] LABS: HEMOGLOBIN 6.8 g/dl (13.5-17.5)
[2018-10-14] MEDS: LEVOTHYROXINE 125MCG TABLET (0.125MG) PO SCH (05:39)
[2018-10-14] MEDS ORDERED: LEVEMIR (INSULIN DETEMIR) 1 UNITS/0.01ML SC SCH (09:00)
[2018-10-14] MEDS ORDERED: MAGNESIUM CITRATE 300 ML BTL PO ONE (09:00)
[2018-10-14] MEDS ORDERED: GOLYTELY SOLN 4000 ML BTL PO ONE (09:00)
[2018-10-14] MEDS ORDERED: LR 1,000 ML IV SCH (09:15)
[2018-10-14] MEDS ORDERED: ONDANSETRON 4MG/2ML VIAL (J2405) IV PRN (09:15)
--- NOTE | 2018-10-14 09:26 | ROOR ---
Patient Name: Ari Fish Procedure Date: 10/14/2018 9:19 AM Date of : 1935 Age: 82 Gender: Male Note Status: Finalized Procedure: Upper GI endoscopy Indications: Acute post hemorrhagic anemia, Active gastrointestinal bleeding, Recent gastrointestinal bleeding, Gastrointestinal bleeding of unknown origin Providers: Ryan VALLECILLO MD Referring MD: 2. Inpatient 2. Inpatient Requesting Provider: Medicines: Monitored Anesthesia Care Complications: No immediate complications. Procedure: Pre-Anesthesia Assessment: - The heart rate, respiratory rate, oxygen saturations, blood pressure, adequacy of pulmonary ventilation, and response to care were monitored throughout the procedure. The Endoscope was introduced through the mouth, and advanced to the third part of duodenum. The upper GI endoscopy was accomplished without difficulty. The patient tolerated the procedure well. Findings: The esophagus was normal. The stomach was normal. The examined duodenum was normal. Clear fluid was found in the esophagus, stomach and duodenum. Impression: - Normal esophagus. - Normal stomach. - Normal examined duodenum. (- No blood seen, only clear fluid throughout-no source for bleeding in upper gi tract) - No specimens collected. Recommendation: - Perform a colonoscopy later today after rapid prep today. - Mag citrate/golytely now--colonoscopy this afternoon/evening Ryan Vallecillo MD Ryan VALLECILLO MD 10/14/2018 9:25:57 AM Electronically signed by Ryan VALLECILLO MD Number of Addenda: 0 Note Initiated On: 10/14/2018 9:19 AM Estimated Blood Loss: Estimated blood loss: none.
--- NOTE | 2018-10-14 10:24 | IPNPDOC ---
Date Seen The patient was seen on 10/14/18. Progress Note SUBJECTIVE: Patient was seen and examined this morning. He currently has no new complaints. He denies any shortness of breath. He denies chest pain. Patient has received 4 units of blood since admission. His Hbg has mildly improved. There have been no adverse events reported overnight. He has not had any additional bloody bowel movements since admission. OBJECTIVE PHYSICAL EXAMINATION: VITAL SIGNS: Please see below. GENERAL: Awake, alert, and oriented. He is frail appearing. He is in no acute distress. Lying comfortably in bed. HEENT: Atrumatic normocephalic. Eyes are nonicteric. Trachea is midline. Mucous membranes are pink and moist. Dentition is fair CARDIOVASCULAR: Normal S1, S2. Regular and rhythm. 2/6 systolic ejection murmur. No clicks or rubs RESPIRATORY: Bibasilar crackles bilaterally. No wheezes or rhonci. Good respiratory effort . ABDOMINAL: Soft, nondistended. Nontender to palpation throughout. Positive bowel sounds EXTREMITIES: No edema. Full and equal pulses in bilateral upper and lower extremities. 5 mm x 5mm ulcer with erythematous base on right great toe NEUROLOGICAL: No focal neurological deficits PSYCHOLOGICAL: Mood and affect appear appropriate LABORATORY DATA, IMAGING STUDIES, MICROBIOLOGY: Please see below. DVT prophylaxis ordered?: Mechanical Prophylaxis ASSESSMENT AND PLAN: Patient is an 82 year old male with a past medical history significant for HFpEF, COPD, REBEKAH, and atrial fibrillation who presented to the [facility] ER after 2 days of hematochezia. Patient was found to be rather asymptomatic however was hypotensive with a hemoglobin of 5.8. Patient was admitted to hospitalist service for suspected acute blood loss anemia secondary to a GI bleed. PROBLEMS: 1.Acute Blood Loss Anemia 2/2 Upper vs lower GI bleed -Patient has received a total of 4 units of blood since admission. He has remained vitally stable although his blood pressure has been on the soft side. His Hgb has only mildly improved to 6.8 today. He will likely need at least an additional 2 units of blood today. -Patient has received an upper endoscopy which demonstrated a normal esophagus, stomach, and duodenum. Plan is set for him to receive a lower endoscopy today. -GI consultation is greatly appreciated 2. Atrial Fibrillation -Patient has a history of atrial fibrillation. -Continue Digoxin and Multaq. He remains rate controlled -Holding Eliquis due to current acute blood loss anemia 3. IDDM -Patient is currently NPO. -Sliding Scale insulin Q6H fingersticks -Will resume home basal coverage 35 units of levemir once patient begins diet 4. Chronic Lower Back Pain -MS Cotin 30mg daily PO and 15mg QHS 5. Hypothyroidism -Continue Synthroid 6. Seasonal Allergies -Continue Melinda 7. DVT prophylaxis -Mechanical prophylaxis with TEDs and Sequentials Attending Note I saw and evaluated the patient. I agree with the findings and plan of care as documented in the resident's note A-FIB/CHADSVASC A-FIB History Current/History of A-Fib/PAF?: Yes Current Oral Anticoagulant The: No Age/Risk Factor Scoring CHADSVASC: CHADSVASC Response (Comments) Value Age Risk Factor Age >/= 75 years old 2 Total 2 Treatment Treatment ordered: NONE Reason Anticoagulant not given: Current bleeding VS, I&O, 24H, Fishbone Vital Signs/I&O Vital Signs Date Time Temp Pulse Resp B/P (MAP) Pulse Ox O2 Delivery O2 Flow Rate FiO2 10/14/18 09:15 97.2 80 14 93/49 (64) 92 10/14/18 08:00 2.0 10/13/18 15:23 Nasal Cannula I&O- Last 24 Hours up to 6 AM 10/14/18 05:59 Intake Total 1465 ml Output Total 1100 ml Balance 365 ml Laboratory Data 24H LABS Laboratory Tests 2 10/13/18 10:43: Immature Granulocyte % (Auto) 4.0H, White Blood Count 18.1H, Red Blood Count 1.87L, Hemoglobin 5.8*L, Hematocrit 18.2L, Mean Corpuscular Volume 97.3H, Mean Corpuscular Hemoglobin 31.0, Mean Corpuscular Hemoglobin Concent 31.9L, Red Cell Distribution Width 15.1H, Platelet Count 199, Neutrophils (%) (Auto) 79.2H, Lymphocytes (%) (Auto) 10.7L, Monocytes (%) (Auto) 5.3H, Eosinophils (%) (Auto) 0.5, Basophils (%) (Auto) 0.3, Neutrophils # (Auto) 14.3H, Lymphocytes # (Auto) 1.9, Monocytes # (Auto) 1.0H, Eosinophils # (Auto) 0.1, Basophils # (Auto) 0.1, Nucleated Red Blood Cells % (auto) 0.2H, Prothrombin Time 17.9H, Prothromb Time International Ratio 1.45, Anion Gap 9, Glomerular Filtration Rate 39.3, Calcium Level 8.7L, Aspartate Amino Transf (AST/SGOT) 18, Alanine Aminotransferase (ALT/SGPT) 19, Alkaline Phosphatase 71, Total Bilirubin 0.4, Direct Bilirubin 0.2, Total Protein 7.4, Albumin 2.7L, Albumin/Globulin Ratio 0.57L, Lipase 89, Digoxin Level 1.7 10/13/18 17:57: Bedside Glucose (Misc Panel) 202H 10/13/18 23:58: Bedside Glucose (Misc Panel) 155H 10/14/18 05:33: Bedside Glucose (Misc Panel) 143H CBC/BMP Laboratory Tests 10/13/18 10:43 Red Blood Count 1.87 L, Mean Corpuscular Volume 97.3 H, Mean Corpuscular Hemoglobin 31.0, Mean Corpuscular Hemoglobin Concent 31.9 L, Red Cell Distri bution Width 15.1 H, Neutrophils (%) (Auto) 79.2 H, Lymphocytes (%) (Auto) 10.7 L, Monocytes (%) (Auto) 5.3 H, Eosinophils (%) (Auto) 0.5, Basophils (%) (Auto) 0.3, Neutrophils # (Auto) 14.3 H, Lymphocytes # (Auto) 1.9, Monocytes # (Auto) 1.0 H, Eosinophils # (Auto) 0.1, Basophils # (Auto) 0.1 10/13/18 20:56 10/14/18 03:03 MONIK AMBROSE DO October 14, 2018 10:00 BRIAN VALENTE MD October 15, 2018 09:12
[2018-10-14] MEDS: PANTOPRAZOLE 40MG INJ (PROTONIX) (C9113) IV SCH ×2 (10:25→20:29)
[2018-10-14] MEDS: FEXOFENADINE 60 MG TAB PO SCH (10:26)
[2018-10-14] MEDS: FOLIC ACID 1 MG TAB PO SCH (10:26)
[2018-10-14] MEDS: DIGOXIN 0.125 MG TAB PO SCH (10:26)
[2018-10-14 10:27] LABS: HEMATOCRIT 23.1 % (42.0-52.0); HEMOGLOBIN 7.7 g/dl (13.5-17.5); MEAN CORPUSCULAR HEMOGLOBIN 30.8 pg (27.0-33.0); MEAN CORPUSCULAR HGB CONC 33.3 g/dl (32.0-36.5); MEAN CORPUSCULAR VOLUME 92.4 fl (80.0-96.0); PLATELET COUNT, AUTOMATED 154 10^3/uL (150-450); WHITE BLOOD COUNT 13.9 10^3/uL (4.0-10.0)
[2018-10-14] MEDS: MORPHINE 30 MG SA TAB PO SCH (10:28)
[2018-10-14 10:59] LABS: CALCIUM LEVEL 7.6 MG/DL (8.8-10.2); CREATININE FOR GFR 1.36 MG/DL (0.70-1.30); GLOMERULAR FILTRATION RATE 53.3 (>35); POTASSIUM SERUM 3.8 MEQ/L (3.5-5.1)
[2018-10-14] MEDS: DRONEDARONE 400 MG TAB (MULTAQ) PO SCH ×2 (11:16→17:15)
[2018-10-14] MEDS: NS 1,000 ML IV SCH ×2 (15:55→20:28)
--- NOTE | 2018-10-14 17:34 | ECGEPIP ---
Stationary ECG Study [facility] - ED Test Date: 2018-10-13 Pat Name: TY MARIE Department: Room: - Gender: M [employer]: ROWAN : 1935 Requested By: Peggy Alvarez Order Number: [id number] Reading MD: Peggy Alvarez Measurements Intervals [place] Rate: 96 P: NE: 0 QRS: -23 QRSD: 103 T: 151 QT: 392 QTc: 496 Interpretive Statements ATRIAL FIBRILLATION BORDERLINE LEFT AXIS DEVIATION ST DEVIATION AND MODERATE T-WAVE ABNORMALITY, CONSIDER ANTEROLATERAL ISCHEMIA, CLINICAL CORRELATION, NEW 07/31/18 07/31/18 SINUS RHYTHM Electronically Signed On 10-14-2018 17:34:37 EDT by Peggy Alvarez
[2018-10-14] MEDS: ACETAMINOPHEN TAB 650MG DOSE (2X325MG) PO PRN (18:02)
[2018-10-14] MEDS: SIMVASTATIN 10 MG TAB PO SCH (20:28)
[2018-10-14] MEDS: MORPHINE 15 MG SA TAB PO SCH (20:29)
[2018-10-14 21:05] LABS: HEMATOCRIT 24.9 % (42.0-52.0); HEMOGLOBIN 8.4 g/dl (13.5-17.5)
[2018-10-15] VITALS (8 sets, daily range): BP systolic 97–118; BP diastolic 54–93
[2018-10-15 00:59] LABS: HEMATOCRIT 24.2 % (42.0-52.0); HEMOGLOBIN 8.1 g/dl (13.5-17.5)
[2018-10-15] MEDS: NS 1,000 ML IV SCH ×2 (01:55→12:47)
[2018-10-15] MEDS: HumaLOG INSULIN (NovoLOG) PER UNIT SC SCH ×5 (06:00→23:57)
[2018-10-15] MEDS: LEVOTHYROXINE 125MCG TABLET (0.125MG) PO SCH (06:52)
[2018-10-15 07:10] LABS: HEMATOCRIT 26.2 % (42.0-52.0); HEMOGLOBIN 8.7 g/dl (13.5-17.5); MEAN CORPUSCULAR HGB CONC 33.2 g/dl (32.0-36.5); MEAN CORPUSCULAR VOLUME 93.2 fl (80.0-96.0); PLATELET COUNT, AUTOMATED 140 10^3/uL (150-450); RED BLOOD COUNT 2.81 10^6/uL (4.30-6.10); WHITE BLOOD COUNT 10.4 10^3/uL (4.0-10.0)
[2018-10-15 07:32] LABS: BLOOD UREA NITROGEN 19 MG/DL (7-18); CALCIUM LEVEL 7.5 MG/DL (8.8-10.2); CARBON DIOXIDE LEVEL 30 MEQ/L (21-32); CHLORIDE LEVEL 107 MEQ/L (98-107); CREATININE FOR GFR 1.13 MG/DL (0.70-1.30); GLOMERULAR FILTRATION RATE > 60.0 (>35); GLUCOSE, FASTING 148 MG/DL (70-100); POTASSIUM SERUM 3.8 MEQ/L (3.5-5.1); SODIUM LEVEL 141 MEQ/L (136-145)
[2018-10-15] MEDS ORDERED: LIDOCAINE 2% INJ 100 MG/5 ML SDV (FOR ANES.) As Ordered ONE (08:44)
[2018-10-15] MEDS ORDERED: PROPOFOL 200 MG/20 ML VIAL As Ordered ONE ×3 (08:44→10:18)
[2018-10-15] MEDS ORDERED: ePHEDrine SULFATE 25 MG/5 ML(5MG/ML) SYRINGE As Ordered ONE (08:45)
[2018-10-15] MEDS ORDERED: PHENYLephrine HCL 500 MCG/5 ML (100MCG/ML) SYRINGE (J2370) As Ordered ONE (08:45)
[2018-10-15] MEDS ORDERED: ONDANSETRON 4MG/2ML VIAL (J2405) IV PRN (10:30)
[2018-10-15] MEDS ORDERED: LR 1,000 ML IV SCH (10:30)
--- NOTE | 2018-10-15 10:32 | ROOR ---
Patient Name: Ari Fish Procedure Date: 10/15/2018 10:01 AM Date of : 1935 Age: 82 Gender: Male Note Status: Finalized Procedure: Colonoscopy Indications: Hematochezia, Gastrointestinal bleeding Providers: Ryan VALLECILLO MD Referring MD: 2. Inpatient 2. Inpatient Requesting Provider: Medicines: Monitored Anesthesia Care Complications: No immediate complications. Procedure: Pre-Anesthesia Assessment: - The heart rate, respiratory rate, oxygen saturations, blood pressure, adequacy of pulmonary ventilation, and response to care were monitored throughout the procedure. The Colonoscope was introduced through the anus and advanced to 5 cm into the ileum. The colonoscopy was somewhat difficult due to excessive bleeding. Successful completion of the procedure was aided by lavage. Findings: The perianal and digital rectal examinations were normal. Red blood was found in the entire colon. The terminal ileum appeared normal. A few medium-mouthed diverticula were found in the sigmoid colon. Internal hemorrhoids were found during retroflexion. The hemorrhoids were medium-sized. A localized area of erythematous mucosa was found at the splenic flexure. For hemostasis, two hemostatic clips were successfully placed. Impression: - The examined portion of the ileum was normal with yellow/bilious fluid - Blood fresh and clots from rectum to cecum. This was extensively washed- vis is suboptimal - 5 mm mucosal red spot (dubious significance) at the splenic flexure. Clips were placed. - Long redundant colon. - Mild diverticulosis in the sigmoid colon. - Moderate Internal hemorrhoids. - (This exam was done emergently to localize, find and treat active hemorrhage. It cannot substitute for a routine surveillance colonoscopy). - (This exam likely localizes the site of very recent bleeding to somewhere in the right colon, as the TI is free of blood.) Recommendation: - Clear liquid diet. - I think the most recent rebleeding has stopped for now, but he will need continued observation for another 1-2 days for recurrent bleeding. - For recurrent bleeding would recommend consultation with Dr Morales/Vascular surgery. Ryan Vallecillo MD Ryan VALLECILLO MD 10/15/2018 10:32:45 AM Electronically signed by Ryan VALLECILLO MD Number of Addenda: 0 Note Initiated On: 10/15/2018 10:01 AM Estimated Blood Loss: Estimated blood loss: none.
[2018-10-15] MEDS: FEXOFENADINE 60 MG TAB PO SCH (11:04)
[2018-10-15] MEDS: DIGOXIN 0.125 MG TAB PO SCH (11:05)
[2018-10-15] MEDS: FOLIC ACID 1 MG TAB PO SCH (11:05)
[2018-10-15] MEDS: DRONEDARONE 400 MG TAB (MULTAQ) PO SCH ×2 (11:05→18:16)
[2018-10-15] MEDS: MORPHINE 30 MG SA TAB PO SCH (11:07)
[2018-10-15 12:59] LABS: HEMATOCRIT 24.2 % (42.0-52.0); HEMOGLOBIN 7.9 g/dl (13.5-17.5)
--- NOTE | 2018-10-15 15:05 | IPNPDOC ---
Date Seen The patient was seen on 10/15/18. Progress Note SUBJECTIVE: Patient reports feeling well, he tells me he did not have any bowel movements this morning. He denies chest pressure shortness of breath lightheadedness dizziness palpitations nausea or vomiting. He denies any abdominal pain or discomfort OBJECTIVE PHYSICAL EXAMINATION: VITAL SIGNS: Please see below. GENERAL: Awake, alert, and oriented. He is frail appearing. Very hard of hearing HEENT: normocephalic. Eyes are nonicteric. Trachea is midline. Bitemporal wasting CARDIOVASCULAR: Normal S1, S2. Regular and rhythm. 2/6 systolic ejection murmur. No clicks or rubs RESPIRATORY: Bibasilar crackles bilaterally. No wheezes or rhonci. Good respiratory effort . ABDOMINAL: Soft, nondistended. Nontender to palpation throughout. Positive bowel sounds EXTREMITIES: No edema. Full and equal pulses in bilateral upper and lower extremities. Lower extremity dressing clean dry and intact NEUROLOGICAL: No focal neurological deficits PSYCHOLOGICAL: Mood and affect appear appropriate LABORATORY DATA, IMAGING STUDIES, MICROBIOLOGY: Please see below. DVT prophylaxis ordered?: Mechanical Prophylaxis no pharmacological agents in the setting of recent bleeding ASSESSMENT AND PLAN: Patient is an 82 year old male with acute blood loss anemia secondary to lower GI bleed PROBLEMS: 1.Acute Blood Loss Anemia secondary to lower GI bleed : Hemoglobin appears relatively stable at this time no further episodes of bloody bowel movements since yesterday afternoon her noon undergoing his bowel prep for colonoscopy today. GI help greatly appreciated will follow-up colonoscopy results today we'll continue to monitor him for another 24-48 hours to ensure stabilization of hemoglobin. His antiplatelet medication has been held at time of admission strongly has decreased restarting it at least in the near future. Diet as per GI following colonoscopy 2. Atrial Fibrillation : Anticoagulation held as outlined above he is rate controlled with digoxin and multaq 3. IDDM: Currently nothing by mouth sliding scale every 6 fingersticks well controlled 4. Chronic Lower Back Pain : Continue with his home MS Cotin 30mg daily PO and 15mg QHS 5. Hypothyroidism : Continue with Synthroid 6. Seasonal Allergies :Continue Melinda 7. Acute kidney injury: Improving with blood transfusions likely was prerenal, will discontinue IV fluids today 8. Gastroesophageal reflux disease: Continue with omeprazole 9. Gout resume home allopurinol Disposition: Pending resolution of bleeding and stabilization of hemoglobin VS, I&O, 24H, Fishbone Vital Signs/I&O Vital Signs Date Time Temp Pulse Resp B/P (MAP) Pulse Ox O2 Delivery O2 Flow Rate FiO2 10/15/18 13:17 95 10/15/18 12:30 97.9 79 18 117/93 (101) 10/15/18 11:07 2.0 10/13/18 15:23 Nasal Cannula I&O- Last 24 Hours up to 6 AM 10/15/18 06:00 Intake Total 3330 ml Output Total 450 ml Balance 2880 ml Laboratory Data 24H LABS Laboratory Tests 2 10/14/18 16:38: Bedside Glucose (Misc Panel) 185H 10/15/18 00:53: Bedside Glucose (Misc Panel) 141H 10/15/18 06:19: Bedside Glucose (Misc Panel) 145H 10/15/18 06:52: Nucleated Red Blood Cells % (auto) 0.0, Anion Gap 4L, Glomerular Filtration Rate > 60.0, Blood Urea Nitrogen 19H, Creatinine 1.13, Sodium Level 141, Potassium Level 3.8, Chloride Level 107, Carbon Dioxide Level 30, Calcium Level 7.5L 10/15/18 12:01: Bedside Glucose (Misc Panel) 165H CBC/BMP Laboratory Tests 10/14/18 20:58 10/15/18 00:54 10/15/18 06:52 Red Blood Count 2.81 L, Mean Corpuscular Volume 93.2, Mean Corpuscular Hemoglobin 31.0, Mean Corpuscular Hemoglobin Concent 33.2, Red Cell Distribution Width 16.4 H, Calcium Level 7.5 L 10/15/18 12:52 BRIAN VALENTE MD October 15, 2018 15:05
[2018-10-15 19:32] LABS: HEMATOCRIT 22.8 % (42.0-52.0); HEMOGLOBIN 7.3 g/dl (13.5-17.5)
[2018-10-15] MEDS: SIMVASTATIN 10 MG TAB PO SCH (20:49)
[2018-10-15] MEDS: MORPHINE 15 MG SA TAB PO SCH (20:51)
[2018-10-16 04:00] VITALS: BP 108/59
[2018-10-16 04:56] LABS: HEMATOCRIT 21.7 % (42.0-52.0); MEAN CORPUSCULAR HEMOGLOBIN 30.2 pg (27.0-33.0); MEAN CORPUSCULAR HGB CONC 32.3 g/dl (32.0-36.5); MEAN CORPUSCULAR VOLUME 93.5 fl (80.0-96.0); PLATELET COUNT, AUTOMATED 137 10^3/uL (150-450); RED BLOOD COUNT 2.32 10^6/uL (4.30-6.10); WHITE BLOOD COUNT 11.4 10^3/uL (4.0-10.0)
[2018-10-16 05:12] LABS: BLOOD UREA NITROGEN 12 MG/DL (7-18); CALCIUM LEVEL 7.3 MG/DL (8.8-10.2); CARBON DIOXIDE LEVEL 25 MEQ/L (21-32); CHLORIDE LEVEL 110 MEQ/L (98-107); CREATININE FOR GFR 1.03 MG/DL (0.70-1.30); GLOMERULAR FILTRATION RATE > 60.0 (>35); GLUCOSE, FASTING 107 MG/DL (70-100); SODIUM LEVEL 140 MEQ/L (136-145)
[2018-10-16] MEDS: LEVOTHYROXINE 125MCG TABLET (0.125MG) PO SCH (06:19)
[2018-10-16] MEDS: HumaLOG INSULIN (NovoLOG) PER UNIT SC SCH ×4 (06:24→23:39)
[2018-10-16] MEDS: DIGOXIN 0.125 MG TAB PO SCH (07:30)
[2018-10-16] MEDS: DRONEDARONE 400 MG TAB (MULTAQ) PO SCH ×2 (07:30→17:51)
[2018-10-16] MEDS: OMEPRAZOLE 20 MG CAP PO SCH (07:30)
[2018-10-16] MEDS: FEXOFENADINE 60 MG TAB PO SCH (07:30)
[2018-10-16 07:31] VITALS: BP 117/62
[2018-10-16] MEDS: MORPHINE 30 MG SA TAB PO SCH (07:31)
[2018-10-16] MEDS: FOLIC ACID 1 MG TAB PO SCH (07:32)
[2018-10-16] MEDS ORDERED: SLF 3 ML SYR IV PRN (08:45)
[2018-10-16 11:45] VITALS: BP 103/58
[2018-10-16] MEDS: SLF 3 ML SYR IV SCH ×2 (12:48→21:24)
--- NOTE | 2018-10-16 13:15 | IPNPDOC ---
Date Seen The patient was seen on 10/16/18. Progress Note SUBJECTIVE: Patient was seen and examined this morning. He currently has no complaints. He received his colonoscopy yesterday. There were no adverse events reported. He had one bowel movement with what appeared to be more melanotic stool. However, he has had no overt bleeding reported. He currently denies any symptoms and states that he would just like a diet OBJECTIVE PHYSICAL EXAMINATION: VITAL SIGNS: Please see below. GENERAL: Awake, alert, and oriented. He is frail appearing. He is in no acute distress, lying comfortably in bed. HEENT: Atrumatic normocephalic. Eyes are nonicteric. Trachea is midline. Mucous membranes are pink and moist. Dentition is fair CARDIOVASCULAR: Normal S1, S2. Regular rate and rhythm. 2/6 systolic ejection murmur. No clicks or rubs RESPIRATORY: Diminished breath sounds bilaterally. Crackles in the bases bilaterally. No wheezes or rhonchi. Good respiratory effort ABDOMINAL: Soft, nondistended. Nontender to palpation throughout. Positive bowel sounds EXTREMITIES: No edema. Full and equal pulses in bilateral upper and lower extremities. Continued chronic nonhealing ulcer on patients right great toe currently bandaged NEUROLOGICAL: No focal neurological deficits PSYCHOLOGICAL: Mood and affect appear appropriate LABORATORY DATA, IMAGING STUDIES, MICROBIOLOGY: Please see below. DVT prophylaxis ordered?: Mechanical 2/2 GI bleeding ASSESSMENT AND PLAN: Patient is an 82 year old male with a past medical history significant for HFpEF, COPD, REBEKAH, and atrial fibrillation who presented to the [facility] ER after 2 days of hematochezia. Patient was found to be rather asymptomatic however was hypotensive with a hemoglobin of 5.8. Patient was admitted to hospitalist service for suspected acute blood loss anemia secondary to a GI bleed. PROBLEMS: PROBLEMS: 1.Acute Blood Loss Anemia 2/2 Upper vs lower GI bleed -Patient was seen by Gastroenterology, their help is greatly appreciated --Patient received an upper and lower endoscopy. His upper endoscopy was negative for any upper GI source of bleeding. The patients lower endoscopy revealed fresh blood and lots in the rectum to cecum. He had a 5 mm mucosal red spot at the splenic flexure. Clips were placed here. -Patients Hbg was 7.0 this morning. Will transfuse another 2 units and monit or Hgb. If he remains stable patient could possibly be discharged in 24-48 hours. In total he will have received 8 units since admission. -Will continue to monitor for bleeding. If he rebleeds will consider possible consultation with vascular surgery for additional management of bleed given findings at the splenic flexure on colonoscopy 2. Atrial Fibrillation -Patient has a history of atrial fibrillation. -Continue Digoxin and Multaq. He remains rate controlled -Currently holding Eliquis due to GI bleed. Will likely not resume anticoagulation upon discharge as patient has a significant GI bleed with ongoing blood loss. 3. IDDM -Patient is currently NPO. -Sliding Scale insulin Q6H fingersticks -Will resume home basal coverage 35 units of levemir once patient begins diet 4. Chronic Lower Back Pain -MS Cotin 30mg daily PO and 15mg QHS 5. Hypothyroidism -Continue Synthroid 6. Seasonal Allergies -Continue Melinda 7. DVT prophylaxis -Mechanical prophylaxis with TEDs and Sequentials DISPOSITION: Likely discharge in 24-48 hours pending patient does not develop any further bleeding A-FIB/CHADSVASC A-FIB History Current/History of A-Fib/PAF?: Yes Current Oral Anticoagulant The: No Age/Risk Factor Scoring CHADSVASC: CHADSVASC Response (Comments) Value Age Risk Factor Age >/= 75 years old 2 Total 2 Treatment Treatment ordered: NONE Reason Anticoagulant not given: Current bleeding VS, I&O, 24H, Fishbone Vital Signs/I&O Vital Signs Date Time Temp Pulse Resp B/P (MAP) Pulse Ox O2 Delivery O2 Flow Rate FiO2 10/16/18 11:45 97.3 74 18 103/58 (73) 98 10/16/18 07:31 1.0 10/13/18 15:23 Nasal Cannula I&O- Last 24 Hours up to 6 AM 10/16/18 06:00 Intake Total 2500 ml Output Total 300 ml Balance 2200 ml Laboratory Data 24H LABS Laboratory Tests 2 10/15/18 16:40: Bedside Glucose (Misc Panel) 156H 10/15/18 23:51: Bedside Glucose (Misc Panel) 206H 10/16/18 04:26: Nucleated Red Blood Cells % (auto) 0.2H, Anion Gap 5L, Glomerular Filtration Rate > 60.0, Blood Urea Nitrogen 12, Creatinine 1.03, Sodium Level 140, Potassium Level 4.0, Chloride Level 110H, Carbon Dioxide Level 25, Calcium Level 7.3L 10/16/18 06:13: Bedside Glucose (Misc Panel) 476H 10/16/18 06:22: Bedside Glucose (Misc Panel) 128H 10/16/18 11:25: Bedside Glucose (Misc Panel) 147H CBC/BMP Laboratory Tests 10/15/18 12:52 10/15/18 19:10 10/16/18 04:26 Red Blood Count 2.32 L, Mean Corpuscular Volume 93.5, Mean Corpuscular Hemoglobin 30.2, Mean Corpuscular Hemoglobin Concent 32.3, Red Cell Distribution Width 16.8 H, Calcium Level 7.3 L GME ATTESTATION GME ATTESTATION My faculty preceptor for this patient encounter was physically present during the encounter and was fully available. All aspects of the patient interview, examination, medical decision making process, and medical care plan development were reviewed and approved by the faculty preceptor. The faculty preceptor is aware and concurs with the plan as stated in the body of this note and will attest to such by his/her cosignature. ATTENDING NOTE I saw and evaluated the patient. I agree with the findings and plan of care as documented in the resident's note MONIK AMBROSE DO October 16, 2018 13:15 ELDON ELMORE MD October 17, 2018 11:29 BRIAN VALENTE MD October 21, 2018 17:09
[2018-10-16 15:50] VITALS: BP 109/58
[2018-10-16 20:00] VITALS: BP 108/68
[2018-10-16] MEDS: SIMVASTATIN 10 MG TAB PO SCH (21:23)
[2018-10-16] MEDS: MORPHINE 15 MG SA TAB PO SCH (21:23)
[2018-10-16 23:59] VITALS: BP 104/52
[2018-10-17 04:00] VITALS: BP 111/55
[2018-10-17] MEDS: LEVOTHYROXINE 125MCG TABLET (0.125MG) PO SCH (05:54)
[2018-10-17] MEDS: HumaLOG INSULIN (NovoLOG) PER UNIT SC SCH ×3 (05:54→17:16)
[2018-10-17] MEDS: SLF 3 ML SYR IV SCH ×3 (05:56→20:32)
[2018-10-17 06:08] LABS: HEMATOCRIT 21.3 % (42.0-52.0); HEMOGLOBIN 7.1 g/dl (13.5-17.5); MEAN CORPUSCULAR HEMOGLOBIN 30.6 pg (27.0-33.0); MEAN CORPUSCULAR HGB CONC 33.3 g/dl (32.0-36.5); MEAN CORPUSCULAR VOLUME 91.8 fl (80.0-96.0); PLATELET COUNT, AUTOMATED 131 10^3/uL (150-450); RED BLOOD COUNT 2.32 10^6/uL (4.30-6.10); WHITE BLOOD COUNT 11.5 10^3/uL (4.0-10.0)
[2018-10-17 06:34] LABS: BLOOD UREA NITROGEN 10 MG/DL (7-18); CALCIUM LEVEL 7.5 MG/DL (8.8-10.2); CARBON DIOXIDE LEVEL 26 MEQ/L (21-32); CHLORIDE LEVEL 106 MEQ/L (98-107); GLOMERULAR FILTRATION RATE > 60.0 (>35); GLUCOSE, FASTING 134 MG/DL (70-100); POTASSIUM SERUM 4.3 MEQ/L (3.5-5.1); SODIUM LEVEL 139 MEQ/L (136-145)
[2018-10-17 08:00] VITALS: BP 113/62
[2018-10-17] MEDS: FEXOFENADINE 60 MG TAB PO SCH (08:03)
[2018-10-17] MEDS: DRONEDARONE 400 MG TAB (MULTAQ) PO SCH ×2 (08:03→17:16)
[2018-10-17] MEDS: OMEPRAZOLE 20 MG CAP PO SCH (08:04)
[2018-10-17] MEDS: DIGOXIN 0.125 MG TAB PO SCH (08:05)
[2018-10-17] MEDS: FOLIC ACID 1 MG TAB PO SCH (08:05)
[2018-10-17] MEDS: MORPHINE 30 MG SA TAB PO SCH (08:06)
[2018-10-17 11:55] VITALS: BP 116/58
[2018-10-17 16:00] VITALS: BP 100/56
[2018-10-17 19:16] LABS: HEMATOCRIT 24.4 % (42.0-52.0); HEMOGLOBIN 8.1 g/dl (13.5-17.5); MEAN CORPUSCULAR HEMOGLOBIN 30.8 pg (27.0-33.0); MEAN CORPUSCULAR HGB CONC 33.2 g/dl (32.0-36.5); MEAN CORPUSCULAR VOLUME 92.8 fl (80.0-96.0); PLATELET COUNT, AUTOMATED 120 10^3/uL (150-450); RED BLOOD COUNT 2.63 10^6/uL (4.30-6.10); WHITE BLOOD COUNT 12.3 10^3/uL (4.0-10.0)
[2018-10-17 20:00] VITALS: BP 105/51
[2018-10-17] MEDS: SIMVASTATIN 10 MG TAB PO SCH (20:28)
[2018-10-17] MEDS: MORPHINE 15 MG SA TAB PO SCH (20:31)
[2018-10-17 23:59] VITALS: BP 98/52
[2018-10-18] VITALS (10 sets, daily range): BP systolic 85–126; BP diastolic 48–56
[2018-10-18] MEDS: HumaLOG INSULIN (NovoLOG) PER UNIT SC SCH ×4 (00:22→18:22)
[2018-10-18 05:42] LABS: HEMATOCRIT 20.9 % (42.0-52.0); MEAN CORPUSCULAR HEMOGLOBIN 29.9 pg (27.0-33.0); MEAN CORPUSCULAR VOLUME 90.5 fl (80.0-96.0); PLATELET COUNT, AUTOMATED 122 10^3/uL (150-450); RED BLOOD COUNT 2.31 10^6/uL (4.30-6.10); WHITE BLOOD COUNT 11.2 10^3/uL (4.0-10.0)
[2018-10-18 05:43] LABS: HEMOGLOBIN 6.9 g/dl (13.5-17.5)
[2018-10-18] MEDS: LEVOTHYROXINE 125MCG TABLET (0.125MG) PO SCH (05:45)
[2018-10-18] MEDS: SLF 3 ML SYR IV SCH ×3 (05:54→21:57)
[2018-10-18 05:59] LABS: BLOOD UREA NITROGEN 11 MG/DL (7-18); CALCIUM LEVEL 7.3 MG/DL (8.8-10.2); CARBON DIOXIDE LEVEL 28 MEQ/L (21-32); CHLORIDE LEVEL 106 MEQ/L (98-107); GLOMERULAR FILTRATION RATE > 60.0 (>35); GLUCOSE, FASTING 138 MG/DL (70-100); POTASSIUM SERUM 4.3 MEQ/L (3.5-5.1); SODIUM LEVEL 138 MEQ/L (136-145)
[2018-10-18] MEDS: FEXOFENADINE 60 MG TAB PO SCH (08:37)
[2018-10-18] MEDS: DIGOXIN 0.125 MG TAB PO SCH (08:38)
[2018-10-18] MEDS: FOLIC ACID 1 MG TAB PO SCH (08:38)
[2018-10-18] MEDS: DRONEDARONE 400 MG TAB (MULTAQ) PO SCH ×2 (08:38→17:31)
[2018-10-18] MEDS: MORPHINE 30 MG SA TAB PO SCH (08:38)
[2018-10-18] MEDS: OMEPRAZOLE 20 MG CAP PO SCH (08:38)
--- NOTE | 2018-10-18 13:57 | CR.PDOC ---
General Date of Consultation: October 18, 2018 Consultation CONSULTATION REPORT REASON FOR CONSULTATION: GI Bleeding Vascular Surgery: Dr. Morales HPI: 82year oldM who presented to the [facility] Emergency Department with complaint of numerous episodes of bloody stool. This AM Hgb noted to be 6.9. Vascular surgery is consulted regarding GI Bleeding. Denies any fevers, chills, weakness, fatigue, Headache, Chest Pain, Shortness of breath, cough, palpitations, abdominal pain, N/V/D or changes in bowel or bladder habits. PAST MEDICAL HISTORY: HFpEF (LVEF 60-65%) 05/2018 COPD REBEKAH on CPAP GERD Gout Paroxysmal Atrial Fibrillation BPH PAST SURGICAL HISTORY: TURP ESWL left arm SOCIAL HISTORY: current resident of the [facility]. He is a former smoker. He denies any other tobacco use. He denies alcohol use. FAMILY HISTORY: Noncontributory ROS: As noted in HPI, otherwise 11pt ROS of systems reviewed and unremarkable. PE: GEN: 82yoM, appears pale. Alert and oriented x 3. HEENT: Normocephalic, atraumatic.Sclera are nonicteric. Conjunctiva without injection. No facial asymmetry. Moist mucous membranes. CHEST: Regular rate and rhythm, +S1, +S2 LUNGS: Clear to auscultation bilaterally. ABD: Round, soft, non-tender, non-distended. +Bowel sounds throughout. No rebound or guarding. No costovertebral angle tenderness. EXT: Pulses palpable bilaterally LEs. No lower extremity edema appreciated. SKIN: [place], dry, warm. No rashes. NEURO: Alert and oriented x 3. Cranial nerves III-XII are intact. No focal deficits appreciated. A&P: 82year oldM who presented to the [facility] Emergency Department with complaint of numerous episodes of bloody stool. This AM Hgb noted to be 6.9. Vascular surgery is consulted regarding GI Bleeding. 1. Acute Blood Loss Anemia 2/2 Upper vs lower GI bleed Patient was seen by Gastroenterology S/P upper and lower endoscopy. His upper endoscopy was negative for any upper GI source of bleeding. The patients lower endoscopy revealed fresh blood and lots in the rectum to cecum. He had a 5 mm mucosal red spot at the splenic flexure. Clips were placed. Hgb was 6.9 this morning. 10 units PRBC since admission. Hgb 1335 hrs pending. D/W Dr Morales, Possibly consider mesenteric angiogram. Pt is NPO. ASA/Eliquis on Hold. 2. PAF. Eliquis/ASA 81mg on Hold DVT prophylaxis. Eliquis on hold. SCD/TEDS. Thank you for your consultation. We will continue to follow along with you. Vital Signs/I&O Vital Signs Date Time Temp Pulse Resp B/P (MAP) Pulse Ox O2 Delivery O2 Flow Rate FiO2 10/18/18 12:00 98.6 72 20 106/52 (70) 95 10/16/18 07:31 1.0 10/13/18 15:23 Nasal Cannula I&O- Last 24 Hours up to 6 AM 10/18/18 06:00 Intake Total 2150 ml Output Total 2600 ml Balance -450 ml Laboratory Data Labs 24H Laboratory Tests 2 10/17/18 16:30: Bedside Glucose (Misc Panel) 147H 10/17/18 19:05: Nucleated Red Blood Cells % (auto) 0.0 10/18/18 00:13: Bedside Glucose (Misc Panel) 162H 10/18/18 05:20: Nucleated Red Blood Cells % (auto) 0.0, Anion Gap 4L, Glomerular Filtration Rate > 60.0, Blood Urea Nitrogen 11, Creatinine 1.00, Sodium Level 138, Potassium Level 4.3, Chloride Level 106, Carbon Dioxide Level 28, Calcium Level 7.3L 10/18/18 05:47: Bedside Glucose (Misc Panel) 146H 10/18/18 11:48: Bedside Glucose (Misc Panel) 163H CBC/BMP Laboratory Tests 10/17/18 19:05 Red Blood Count 2.63 L, Mean Corpuscular Volume 92.8, Mean Corpuscular Hemoglobin 30.8, Mean Corpuscular Hemoglobin Concent 33.2, Red Cell Distribution Width 16.2 H 10/18/18 05:20 Red Blood Count 2.31 L, Mean Corpuscular Volume 90.5, Mean Corpuscular Hemoglobin 29.9, Mean Corpuscular Hemoglobin Concent 33.0, Red Cell Distribution Width 16.3 H, Calcium Level 7.3 L Allergies Coded Allergies: Beta-Blockers (Beta-Adrenergic Bloc (Verified Allergy, Unknown, 09/13/18) spironolactone (Verified Allergy, Unknown, 09/13/18) warfarin (Verified Allergy, Unknown, 09/13/18) indomethacin (Verified Adverse Reaction, Intermediate, HALLUCINATIONS, 09/13/18) Home Medications Scheduled Allopurinol (Allopurinol) 100 Mg Tab, 200 MG PO DAILY, (Reported) Apixaban (Eliquis) 2.5 Mg Tablet, 2.5 MG PO BID, (Reported) Aspirin (Aspirin) 81 Mg Tab.chew, 81 MG PO DAILY, (Reported) Calcium Carbonate/Vitamin D3 (Calcium 600 with Vit D Chew Tb) 1 Each Tab.chew, 1 CHW PO BID, (Reported) Digoxin (Digoxin) 125 Mcg Tab, 125 MCG PO DAILY, (Reported) Docusate Sodium (Docusate Sodium) 100 Mg Capsule, 200 MG PO QHS, (Reported) Dronedarone (Multaq) 400 Mg Tab, 400 MG PO BID, (Reported) Ferrous Gluconate (Ferrous Gluconate) 324 Mg Tab, 324 MG PO BID, (Reported) Fexofenadine HCl (Melinda Allergy) 180 Mg Tab, 180 MG PO DAILY, (Reported) Folic Acid (Folic Acid) 1 Mg Tab, 1 MG PO DAILY, (Reported) Insulin Glargine,Hum.rec.anlog (Basaglar Kwikpen U-100) 100 Unit/1 Ml Insuln.pen, 36 UNIT SC DAILY, (Reported) AT 0600 Levothyroxine Sodium (Levothyroxine Sodium) 125 Mcg Tab, 125 MCG PO DAILY, (Reported) AT 0600 Linagliptin (Tradjenta) 5 Mg Tablet, 5 MG PO DAILY, (Reported) Lovastatin (Lovastatin) 10 Mg Tab, 10 MG PO QHS, (Reported) Morphine Sulfate (Morphine Sulfate ER) 15 Mg Tabcr, 15 MG PO QHS, (Reported) Morphine Sulfate (Morphine Sulfate ER) 30 Mg Tablet.er, 30 MG PO DAILY, (Reported) Naloxegol Oxalate (Movantik) 25 Mg Tablet, 25 MG PO DAILY, (Reported) Hendrix-3/Dha/Epa/Fish Oil (Fish Oil EC 1,000 mg Softgel) 1 Cap Cap, 1 CAP PO BID, (Reported) Omeprazole (Omeprazole) 20 Mg Cap, 20 MG PO DAILY, (Reported) Potassium Chloride (K-Tab ER) 10 Meq Tab, 20 MEQ PO BID, (Reported) Sennosides/Docusate Sodium (Docusate Sodium-Senna Tablet) 1 Each Tablet, 2 TAB PO DAILY, (Reported) Torsemide (Torsemide) 20 Mg Tab, 40 MG PO DAILY, (Reported) Scheduled PRN Acetaminophen (Acetaminophen) 325 Mg Tablet, 650 MG PO Q4H PRN for PAIN, (Report ed) Acetaminophen with Codeine (Acetaminophen-Cod #3 Tablet) 1 Each Tablet, 1 TAB PO QID PRN for PAIN, (Reported) Melatonin (Melatonin) 10 Mg Cap, 10 MG PO QHS PRN for INSOMNIA, (Reported) Milk Of Magnesia (Milk of Magnesia) 2,400 Mg/10 Ml Oral.susp, 30 ML PO DAILY PRN for CONSTIPATION, (Reported) Nitroglycerin (Nitrostat) 0.4 Mg Subl, 0.4 MG SL NITRO PRN for CHEST PAIN, (Reported) Polyethylene Glycol 3350 (Miralax) 119 Gm Powder, 17 GM PO DAILY PRN for CONSTIPATION, (Reported) Giovanna Batista October 18, 2018 13:57
[2018-10-18] MEDS ORDERED: MIDAZOLAM INJ 2 MG/2 ML VIAL (J2250) As Ordered ONE (14:48)
[2018-10-18] MEDS ORDERED: BUPIVACAINE HCL 0.5% 10 ML VIAL As Ordered ONE (14:48)
[2018-10-18] MEDS ORDERED: fentaNYL 100 MCG/2 ML INJECTION (J3010) As Ordered ONE (14:48)
[2018-10-18] MEDS ORDERED: ISOVUE-300 61% 100ML VIAL (Q9967) As Ordered ONE (14:49)
[2018-10-18] MEDS ORDERED: LIDOCAINE 2% MDV 20 ML VIAL As Ordered ONE (14:49)
--- NOTE | 2018-10-18 15:24 | IPNPDOC ---
Date Seen The patient was seen on 10/18/18. Progress Note SUBJECTIVE: Patient was seen and examined this morning. He continues to have bloody bowel movements despite his colonoscopy. This morning his hemoglobin was 6.9 despite 2 units that he was transfused last night. The patient currently makes no complaints. He denies any abdominal pain or cramping. He denies shortness of breath, chest pain, or lightheadedness. OBJECTIVE PHYSICAL EXAMINATION: VITAL SIGNS: Please see below. GENERAL: Awake, alert, and oriented. Appears in no acute distress. Sitting comfortably on edge of bed. HEENT: Atruamatic normocephalic. Trachea is midline. Dentition is fair. CARDIOVASCULAR: Regular rate and rhythm. 2/6 pansystolic murmur present. No clicks or rubs RESPIRATORY: Diminished breath sounds bilaterally. Good respiratory effort. No wheezes, rhonchi, or rales ABDOMINAL: Soft. Nondistended. Nontender to palpation throughout. No rebound tenderness or guarding EXTREMITIES: No edema. Full and equal pulses in upper and lower extremities bilaterally. Continued chronic nonhealing ulcer on patients right great toe currently bandaged NEUROLOGICAL: No focal neurological deficits PSYCHOLOGICAL: Mood and affect appear appropriate LABORATORY DATA, IMAGING STUDIES, MICROBIOLOGY: Please see below. DVT prophylaxis ordered?: Mechanical 2/2 GI bleed ASSESSMENT AND PLAN: Patient is an 82 year old male with a past medical history significant for HFpEF, COPD, REBEKAH, and atrial fibrillation who presented to the [facility] ER after 2 days of hematochezia. Patient was found to be rather asymptomatic however was hypotensive with a hemoglobin of 5.8. Patient was admitted to hospitalist service for suspected acute blood loss anemia secondary to a GI bleed. PROBLEMS: 1.Acute Blood Loss Anemia 2/2 Upper vs lower GI bleed -Patient was seen by Gastroenterology, their help is greatly appreciated --Patient received an upper and lower endoscopy. His upper endoscopy was negative for any upper GI source of bleeding. The patients lower endoscopy revealed fresh blood and lots in the rectum to cecum. He had a 5 mm mucosal red spot at the splenic flexure. Clips were placed here. -Patients Hgb this morning was 6.9. He had received 2 units yesterday. He is to received an additional 2 units today. He will receive a total of 11 units since admission. -Patient is continuing to bleed. Vascular surgery has been consulted for possible angiogram as a source of bleeding has yet to be identified. Their assistance is much appreciated. -Will continue to monitor H&H q8h and transfuse PRN. If patient continues to bleed despite angiography he may need a colectomy. -NPO 2. Atrial Fibrillation -Patient has a history of atrial fibrillation. -Continue Digoxin and Multaq. He remains rate controlled -Currently holding Eliquis due to GI bleed. Will likely not resume anticoagulation upon discharge as patient has a significant GI bleed with ongoing blood loss. 3. IDDM -Patient is currently NPO. -Sliding Scale insulin Q6H fingersticks -Will resume home basal coverage 35 units of levemir once patient begins diet 4. Chronic Lower Back Pain -MS Cotin 30mg daily PO and 15mg QHS 5. Hypothyroidism -Continue Synthroid 6. Seasonal Allergies -Continue Melinda 7. DVT prophylaxis -Mechanical prophylaxis with TEDs and Sequentials A-FIB/CHADSVASC A-FIB History Current/History of A-Fib/PAF?: Yes Current PO Anticoag Therapy: No Age/Risk Factor Scoring CHADSVASC: CHADSVASC Response (Comments) Value Age Risk Factor Age >/= 75 years old 2 Total 2 Treatment Treatment ordered: NONE Reason Anticoagulant not given: Current bleeding VS, I&O, 24H, Fishbone Vital Signs/I&O Vital Signs Date Time Temp Pulse Resp B/P (MAP) Pulse Ox O2 Delivery O2 Flow Rate FiO2 10/18/18 12:00 98.6 72 20 106/52 (70) 95 10/16/18 07:31 1.0 10/13/18 15:23 Nasal Cannula I&O- Last 24 Hours up to 6 AM 10/18/18 06:00 Intake Total 2150 ml Output Total 2600 ml Balance -450 ml Laboratory Data 24H LABS Laboratory Tests 2 10/17/18 16:30: Bedside Glucose (Misc Panel) 147H 10/17/18 19:05: Nucleated Red Blood Cells % (auto) 0.0 10/18/18 00:13: Bedside Glucose (Misc Panel) 162H 10/18/18 05:20: Nucleated Red Blood Cells % (auto) 0.0, Anion Gap 4L, Glomerular Filtration Rate > 60.0, Blood Urea Nitrogen 11, Creatinine 1.00, Sodium Level 138, Potassium Level 4.3, Chloride Level 106, Carbon Dioxide Level 28, Calcium Level 7.3L 10/18/18 05:47: Bedside Glucose (Misc Panel) 146H 10/18/18 11:48: Bedside Glucose (Misc Panel) 163H CBC/BMP Laboratory Tests 10/17/18 19:05 Red Blood Count 2.63 L, Mean Corpuscular Volume 92.8, Mean Corpuscular Hemoglobin 30.8, Mean Corpuscular Hemoglobin Concent 33.2, Red Cell Distribution Width 16.2 H 10/18/18 05:20 Red Blood Count 2.31 L, Mean Corpuscular Volume 90.5, Mean Corpuscular Hemoglobin 29.9, Mean Corpuscular Hemoglobin Concent 33.0, Red Cell Distribution Width 16.3 H, Calcium Level 7.3 L MONIK AMBROSE DO October 18, 2018 15:24
[2018-10-18] MEDS: ACETAMINOPHEN TAB 650MG DOSE (2X325MG) PO PRN (17:31)
[2018-10-18 19:02] LABS: HEMATOCRIT 27.8 % (42.0-52.0)
[2018-10-18 19:08] LABS: HEMOGLOBIN 9.4 g/dl (13.5-17.5)
[2018-10-18] MEDS: MORPHINE 15 MG SA TAB PO SCH (21:57)
[2018-10-18] MEDS: SIMVASTATIN 10 MG TAB PO SCH (21:57)
[2018-10-18 23:32] LABS: HEMATOCRIT 24.3 % (42.0-52.0); HEMOGLOBIN 8.2 g/dl (13.5-17.5)
[2018-10-19] MEDS: HumaLOG INSULIN (NovoLOG) PER UNIT SC SCH ×4 (01:01→18:48)
[2018-10-19 04:00] VITALS: BP 108/56
[2018-10-19] MEDS: SLF 3 ML SYR IV SCH ×3 (05:03→21:37)
[2018-10-19 05:19] LABS: HEMATOCRIT 23.7 % (42.0-52.0); HEMOGLOBIN 7.8 g/dl (13.5-17.5); MEAN CORPUSCULAR HGB CONC 32.9 g/dl (32.0-36.5); MEAN CORPUSCULAR VOLUME 91.2 fl (80.0-96.0); PLATELET COUNT, AUTOMATED 129 10^3/uL (150-450)
[2018-10-19] MEDS: LEVOTHYROXINE 125MCG TABLET (0.125MG) PO SCH (05:30)
[2018-10-19 05:38] LABS: BLOOD UREA NITROGEN 14 MG/DL (7-18); CALCIUM LEVEL 7.4 MG/DL (8.8-10.2); CARBON DIOXIDE LEVEL 25 MEQ/L (21-32); CHLORIDE LEVEL 108 MEQ/L (98-107); CREATININE FOR GFR 1.03 MG/DL (0.70-1.30); GLOMERULAR FILTRATION RATE > 60.0 (>35); GLUCOSE, FASTING 107 MG/DL (70-100); POTASSIUM SERUM 4.1 MEQ/L (3.5-5.1); SODIUM LEVEL 138 MEQ/L (136-145)
[2018-10-19 08:00] VITALS: BP 120/58
[2018-10-19] MEDS: DRONEDARONE 400 MG TAB (MULTAQ) PO SCH ×2 (08:59→18:48)
[2018-10-19] MEDS: OMEPRAZOLE 20 MG CAP PO SCH (08:59)
[2018-10-19] MEDS: FOLIC ACID 1 MG TAB PO SCH (08:59)
[2018-10-19] MEDS: DIGOXIN 0.125 MG TAB PO SCH (09:00)
[2018-10-19] MEDS: FEXOFENADINE 60 MG TAB PO SCH (09:00)
[2018-10-19] MEDS: MORPHINE 30 MG SA TAB PO SCH (09:01)
--- NOTE | 2018-10-19 09:40 | IPNPDOC ---
Date Seen The patient was seen on 10/19/18. Progress Note Vascular Surgery: Dr. Morales HPI: 82year oldM who presented to the [facility] Emergency Department with complaint of numerous episodes of bloody stool. 10/18/18 AM Hgb noted to be 6.9. Vascular surgery was consulted regarding GI Bleeding. PAST MEDICAL HISTORY: HFpEF (LVEF 60-65%) 05/2018 COPD REBEKAH on CPAP GERD Gout Paroxysmal Atrial Fibrillation BPH PAST SURGICAL HISTORY: TURP ESWL left arm PE: GEN: 82yoM, appears pale. Alert and oriented x 3. HEENT: Normocephalic, atraumatic. Moist mucous membranes. CHEST: Regular rate and rhythm, +S1, +S2 LUNGS: Clear to auscultation bilaterally. ABD: Round, soft, non-tender, non-distended. +Bowel sounds throughout. EXT: No lower extremity edema appreciated. SKIN:No rashes. NEURO: Alert and oriented x 3. No focal deficits appreciated. A&P: 82year oldM who presented to the [facility] Emergency Department with complaint of numerous episodes of bloody stool. 10/18/18 Hgb noted to be 6.9. Vascular surgery was consulted regarding GI Bleeding. 1. Acute Blood Loss Anemia 2/2 Upper vs lower GI bleed Patient was seen by Gastroenterology S/P upper and lower endoscopy. His upper endoscopy was negative for any upper GI source of bleeding. The patients lower endoscopy revealed fresh blood and lots in the rectum to cecum. He had a 5 mm mucosal red spot at the splenic flexure. Clips were placed. Hgb was 7.8 this morning. 11 units PRBC since admission. D/W Dr Morales, mesenteric angiogram 10/18/18 with no source of bleeding identified. ASA/Eliquis on Hold. 2. PAF. Eliquis/ASA 81mg on Hold DVT prophylaxis. Eliquis on hold. SCD/TEDS. A-FIB/CHADSVASC A-FIB History Current/History of A-Fib/PAF?: Yes Current PO Anticoag Therapy: Yes Age/Risk Factor Scoring CHADSVASC: CHADSVASC Response (Comments) Value Age Risk Factor Age >/= 75 years old 2 Total 2 VS, I&O, 24H, Fishbone Vital Signs/I&O Vital Signs Date Time Temp Pulse Resp B/P (MAP) Pulse Ox O2 Delivery O2 Flow Rate FiO2 10/19/18 09:01 16 10/19/18 09:00 85 10/19/18 08:00 98.1 120/58 (78) 96 10/16/18 07:31 1.0 10/13/18 15:23 Nasal Cannula I&O- Last 24 Hours up to 6 AM 10/19/18 06:00 Intake Total 1120 ml Output Total 1100 ml Balance 20 ml Laboratory Data 24H LABS Laboratory Tests 2 10/18/18 11:48: Bedside Glucose (Misc Panel) 163H 10/18/18 18:09: Bedside Glucose (Misc Panel) 131H 10/19/18 00:44: Bedside Glucose (Misc Panel) 165H 10/19/18 04:57: Nucleated Red Blood Cells % (auto) 0.0, Anion Gap 5L, Glomerular Filtration Rate > 60.0, Blood Urea Nitrogen 14, Creatinine 1.03, Sodium Level 138, Potassium Level 4.1, Chloride Level 108H, Carbon Dioxide Level 25, Calcium Level 7.4L 10/19/18 05:29: Bedside Glucose (Misc Panel) 121H CBC/BMP Laboratory Tests 10/18/18 18:45 10/18/18 23:19 10/19/18 04:57 Red Blood Count 2.60 L, Mean Corpuscular Volume 91.2, Mean Corpuscular Hemoglobin 30.0, Mean Corpuscular Hemoglobin Concent 32.9, Red Cell Distribution Width 15.5 H, Calcium Level 7.4 L Giovanna Batista October 19, 2018 09:40
--- NOTE | 2018-10-19 11:25 | IPNPDOC ---
Date Seen The patient was seen on 10/19/18. Progress Note SUBJECTIVE: Patient was seen and examined this morning. He had received a mesenteric angiogram per Dr. Morales yesterday. Unfortunately no source of bleeding was identified. The patient continues to have bloodt bowel movements and has had at least 2 overnight. His hemoglobin appears to be dropping 1.5-2 per day. He denies any shortness of breath or chest pain. He does get lightheaded with ambulation however, his baseline is fairly sedentary. OBJECTIVE PHYSICAL EXAMINATION: VITAL SIGNS: Please see below. GENERAL: Awake, alert, and oriented. He appears in no acute distress. lying comfortably in bed HEENT: Atraumatic, normocephalic. Eyes are nonicteric. trachea is midline. Mucous membranes are pink and moist CARDIOVASCULAR: Regular rate and rhythm. 2/6 pansystolic murmur present. No cli cks or rubs RESPIRATORY: Diminished breath sounds bilaterally. Good respiratory effort. No wheezes, rhonchi, or rales ABDOMINAL: Soft, nondistended. Nontender to palpation throughout entire abdomen. No rebound tenderness or guarding. Positive bowel sounds EXTREMITIES: No edema. Full and equal pulses in bilateral upper and lower extremities. Continued chronic nonhealing ulcer on patients right great toe currently bandaged NEUROLOGICAL: No focal neurological deficits PSYCHOLOGICAL: Mood and affect appear appropriate LABORATORY DATA, IMAGING STUDIES, MICROBIOLOGY: Please see below. DVT prophylaxis ordered?: Mechanical 2/2 GI bleed ASSESSMENT AND PLAN: Patient is an 82 year old male with a past medical history significant for HFpEF, COPD, REBEKAH, and atrial fibrillation who presented to the [facility] ER after 2 days of hematochezia. Patient was found to be rather asymptomatic however was hypotensive with a hemoglobin of 5.8. Patient was admitted to hospitalist service for suspected acute blood loss anemia secondary to a GI bleed. PROBLEMS: 1.Acute Blood Loss Anemia 2/2 Upper vs lower GI bleed -Patient was seen by Gastroenterology, their help is greatly appreciated -Patient received an upper and lower endoscopy. His upper endoscopy was negative for any upper GI source of bleeding. The patients lower endoscopy revealed fresh blood and lots in the rectum to cecum. He had a 5 mm mucosal red spot at the splenic flexure. Clips were placed here. -Patient was seen by Vascular Surgery. Their help is greatly appreciated. Dr. Morales had taken the patient for a mesenteric angiogram yesterday. Unfortunately he was unable to locate a source of bleeding. The patient has continued to bleed overnight night and has received a total of 11 units since admission. General surgery has been consulted as the patient may need a partial or subtotal colectomy given his continuous bleed. Patient may benefit from a second colonoscopy. -General Surgery Consultation placed. Help greatly appreciated -Vascular Surgery consult placed and following. Help greatly appreciated. -Gastroenterology Consult has been placed. Help greatly appreciated -Will continue to monitor H&H q8h and transfuse PRN. 2. Atrial Fibrillation -Patient has a history of atrial fibrillation. -Continue Digoxin and Multaq. He remains rate controlled -Currently holding Eliquis due to GI bleed. Will likely not resume anticoagulation upon discharge as patient has a significant GI bleed with ongoing blood loss. 3. IDDM -Patient is currently NPO. -Sliding Scale insulin Q6H fingersticks -Will resume home basal coverage 35 units of levemir once patient begins diet 4. Chronic Lower Back Pain -MS Cotin 30mg daily PO and 15mg QHS 5. Hypothyroidism -Continue Synthroid 6. Seasonal Allergies -Continue Melinda 7. DVT prophylaxis -Mechanical prophylaxis with TEDs and Sequentials A-FIB/CHADSVASC A-FIB History Current/History of A-Fib/PAF?: Yes Current PO Anticoag Therapy: No Age/Risk Factor Scoring CHADSVASC: CHADSVASC Response (Comments) Value Age Risk Factor Age >/= 75 years old 2 Total 2 Treatment Treatment ordered: NONE Reason Anticoagulant not given: Current bleeding VS, I&O, 24H, Fishbone Vital Signs/I&O Vital Signs Date Time Temp Pulse Resp B/P (MAP) Pulse Ox O2 Delivery O2 Flow Rate FiO2 10/19/18 09:01 16 10/19/18 09:00 85 10/19/18 08:00 98.1 120/58 (78) 96 10/16/18 07:31 1.0 10/13/18 15:23 Nasal Cannula I&O- Last 24 Hours up to 6 AM 10/19/18 06:00 Intake Total 1120 ml Output Total 1100 ml Balance 20 ml Laboratory Data 24H LABS Laboratory Tests 2 10/18/18 11:48: Bedside Glucose (Misc Panel) 163H 10/18/18 18:09: Bedside Glucose (Misc Panel) 131H 10/19/18 00:44: Bedside Glucose (Misc Panel) 165H 10/19/18 04:57: Nucleated Red Blood Cells % (auto) 0.0, Anion Gap 5L, Glomerular Filtration Rate > 60.0, Blood Urea Nitrogen 14, Creatinine 1.03, Sodium Level 138, Potassium Level 4.1, Chloride Level 108H, Carbon Dioxide Level 25, Calcium Level 7.4L 10/19/18 05:29: Bedside Glucose (Misc Panel) 121H CBC/BMP Laboratory Tests 10/18/18 18:45 10/18/18 23:19 10/19/18 04:57 Red Blood Count 2.60 L, Mean Corpuscular Volume 91.2, Mean Corpuscular Hemoglobin 30.0, Mean Corpuscular Hemoglobin Concent 32.9, Red Cell Distribution Width 15.5 H, Calcium Level 7.4 L GME ATTESTATION GME ATTESTATION My faculty preceptor for this patient encounter was physically present during the encounter and was fully available. All aspects of the patient interview, examination, medical decision making process, and medical care plan development were reviewed and approved by the faculty preceptor. The faculty preceptor is aware and concurs with the plan as stated in the body of this note and will attest to such by his/her cosignature. ATTENDING NOTE Patient was seen and examined at bedside. Discussed discussed with resident physician Case also discussed with And he advised to call GI for repeat colonoscopy GI will be called today and depending on the recommendation would involve surgery as well MONIK AMBROSE DO October 19, 2018 11:25 ELDON ELMORE MD October 19, 2018 13:58
[2018-10-19 12:00] VITALS: BP 110/56
[2018-10-19] MEDS ORDERED: POLYETHYLENE GLYCOL (MIRALAX) 238GM BOTTLE PO ONE ×2 (13:00→17:00)
[2018-10-19 13:53] LABS: HEMATOCRIT 26.8 % (42.0-52.0)
[2018-10-19 16:00] VITALS: BP 121/65
[2018-10-19 20:00] VITALS: BP 109/55
[2018-10-19] MEDS: SIMVASTATIN 10 MG TAB PO SCH (21:35)
[2018-10-19] MEDS: MORPHINE 15 MG SA TAB PO SCH (21:36)
[2018-10-19 21:45] LABS: HEMATOCRIT 23.3 % (42.0-52.0); HEMOGLOBIN 7.8 g/dl (13.5-17.5)
[2018-10-19 23:59] VITALS: BP 109/50
[2018-10-20] VITALS (7 sets, daily range): BP systolic 106–148; BP diastolic 49–87
[2018-10-20] MEDS ORDERED: MIRALAX *UNIT DOSE* 17GM PACKET PO ONE (05:00)
[2018-10-20 05:46] LABS: HEMATOCRIT 22.7 % (42.0-52.0); HEMOGLOBIN 7.6 g/dl (13.5-17.5); MEAN CORPUSCULAR HEMOGLOBIN 30.5 pg (27.0-33.0); MEAN CORPUSCULAR HGB CONC 33.5 g/dl (32.0-36.5); MEAN CORPUSCULAR VOLUME 91.2 fl (80.0-96.0); PLATELET COUNT, AUTOMATED 129 10^3/uL (150-450); RED BLOOD COUNT 2.49 10^6/uL (4.30-6.10)
[2018-10-20] MEDS: HumaLOG INSULIN (NovoLOG) PER UNIT SC SCH ×4 (06:00→18:00)
[2018-10-20 06:15] LABS: BLOOD UREA NITROGEN 13 MG/DL (7-18); CALCIUM LEVEL 7.6 MG/DL (8.8-10.2); CARBON DIOXIDE LEVEL 25 MEQ/L (21-32); CHLORIDE LEVEL 108 MEQ/L (98-107); CREATININE FOR GFR 1.05 MG/DL (0.70-1.30); GLOMERULAR FILTRATION RATE > 60.0 (>35); GLUCOSE, FASTING 151 MG/DL (70-100); POTASSIUM SERUM 4.2 MEQ/L (3.5-5.1); SODIUM LEVEL 138 MEQ/L (136-145)
[2018-10-20] MEDS: LEVOTHYROXINE 125MCG TABLET (0.125MG) PO SCH (06:43)
[2018-10-20] MEDS: SLF 3 ML SYR IV SCH ×3 (06:43→22:04)
[2018-10-20] MEDS: DIGOXIN 0.125 MG TAB PO SCH (08:30)
[2018-10-20] MEDS: OMEPRAZOLE 20 MG CAP PO SCH (08:30)
[2018-10-20] MEDS: FOLIC ACID 1 MG TAB PO SCH (08:30)
[2018-10-20] MEDS: FEXOFENADINE 60 MG TAB PO SCH (08:30)
[2018-10-20] MEDS: DRONEDARONE 400 MG TAB (MULTAQ) PO SCH ×2 (08:30→20:40)
[2018-10-20] MEDS: MORPHINE 30 MG SA TAB PO SCH (09:00)
--- NOTE | 2018-10-20 10:08 | IPNPDOC ---
Date Seen The patient was seen on 10/20/18. Progress Note SUBJECTIVE: Patient was seen and examined this morning. He continues to have bloody bowel movements which are bright red. He denies shortness of breath or chest pain. He denies lightheadedness. Although when he sits up he does experience lightheadedness. His blood pressure has remained adequate. He is planned for a colonoscopy this afternoon. OBJECTIVE PHYSICAL EXAMINATION: VITAL SIGNS: Please see below. GENERAL: Awake, alert, and oriented. He appears in no acute distress. lying comfortably in bed HEENT: Atraumatic, normocephalic. Eyes are nonicteric. trachea is midline. Mucous membranes are pink and moist CARDIOVASCULAR: Regular rate and rhythm. 2/6 pansystolic murmur present. No cl icks or rubs RESPIRATORY: Diminished breath sounds bilaterally. Good respiratory effort. No wheezes, rhonchi, or rales ABDOMINAL: Soft, nondistended. Nontender to palpation throughout entire abdomen. No rebound tenderness or guarding. Positive bowel sounds EXTREMITIES: No edema. Full and equal pulses in bilateral upper and lower extremities. Continued chronic nonhealing ulcer on patients right great toe currently bandaged NEUROLOGICAL: No focal neurological deficits PSYCHOLOGICAL: Mood and affect appear appropriate LABORATORY DATA, IMAGING STUDIES, MICROBIOLOGY: Please see below. DVT prophylaxis ordered?: Mechanical 2/2 GI bleed ASSESSMENT AND PLAN: This is a -year-old [RACE] [GENDER] with . PROBLEMS: 1.Acute Blood Loss Anemia 2/2 Upper vs lower GI bleed -Patient was seen by Gastroenterology, their help is greatly appreciated -Patient received an upper and lower endoscopy. His upper endoscopy was negative for any upper GI source of bleeding. The patients lower endoscopy re vealed fresh blood and lots in the rectum to cecum. He had a 5 mm mucosal red spot at the splenic flexure. Clips were placed here. -Patient was seen by Vascular Surgery. Their help is greatly appreciated. Dr. Morales had taken the patient for a mesenteric angiogram. Unfortunately he was unable to locate a source of bleeding. General surgery has been consulted as the patient may need a partial or subtotal colectomy given his continuous bleed. -General Surgery Consultation placed. Help greatly appreciated -Vascular Surgery consult placed and following. Help greatly appreciated. -Gastroenterology Consult has been placed. Help greatly appreciated -Patient has bleed more overnight and received addition units of blood. We will check a PT/PTT/INR. Having received a large quantity of RBC transfusions, he may need FFP as his clotting factors may have been diluted. -Patient is planned to receive a colonoscopy this afternoon. At which point a source of bleeding may be identified. Given the patients continuous bleed it is likely that he will need surgical intervention at some point. 2. Atrial Fibrillation -Patient has a history of atrial fibrillation. -Continue Digoxin and Multaq. He remains rate controlled -Currently holding Eliquis due to GI bleed. Will likely not resume anticoagulation upon discharge as patient has a significant GI bleed with ongoing blood loss. 3. IDDM -Patient is currently NPO. -Sliding Scale insulin Q6H fingersticks -Will resume home basal coverage 35 units of levemir once patient begins diet 4. Chronic Lower Back Pain -MS Cotin 30mg daily PO and 15mg QHS 5. Hypothyroidism -Continue Synthroid 6. Seasonal Allergies -Continue Melinda 7. DVT prophylaxis -Mechanical prophylaxis with TEDs and Sequentials DISPOSITION: Patient has received 13 units of blood in total. He has a continuous bleed with no identifiable source. Plan is for repeat colonoscopy in hopes to localize the bleed. If hemostasis can be achieved in best case scenario, however, it is likely that patient will need surgical intervention once an area is localized. A-FIB/CHADSVASC A-FIB History Current/History of A-Fib/PAF?: Yes Current PO Anticoag Therapy: No Age/Risk Factor Scoring CHADSVASC: CHADSVASC Response (Comments) Value Age Risk Factor Age >/= 75 years old 2 Total 2 Treatment Treatment ordered: NONE Reason Anticoagulant not given: Current bleeding VS, I&O, 24H, Fishbone Vital Signs/I&O Vital Signs Date Time Temp Pulse Resp B/P (MAP) Pulse Ox O2 Delivery O2 Flow Rate FiO2 10/20/18 08:00 98.4 73 18 112/72 (85) 95 10/16/18 07:31 1.0 I&O- Last 24 Hours up to 6 AM 10/20/18 06:00 Intake Total 2980 ml Output Total 1145 ml Balance 1835 ml Laboratory Data 24H LABS Laboratory Tests 2 10/19/18 12:23: Bedside Glucose (Misc Panel) 187H 10/19/18 18:42: Bedside Glucose (Misc Panel) 170H 10/20/18 00:04: Bedside Glucose (Misc Panel) 165H 10/20/18 05:16: Nucleated Red Blood Cells % (auto) 0.0, Anion Gap 5L, Glomerular Filtration Rate > 60.0, Blood Urea Nitrogen 13, Creatinine 1.05, Sodium Level 138, Potassium Level 4.2, Chloride Level 108H, Carbon Dioxide Level 25, Calcium Level 7.6L CBC/BMP Laboratory Tests 10/19/18 13:42 10/19/18 21:41 10/20/18 05:16 Red Blood Count 2.49 L, Mean Corpuscular Volume 91.2, Mean Corpuscular Hemoglobin 30.5, Mean Corpuscular Hemoglobin Concent 33.5, Red Cell Distribution Width 15.9 H, Calcium Level 7.6 L GME ATTESTATION GME ATTESTATION My faculty preceptor for this patient encounter was physically present during the encounter and was fully available. All aspects of the patient interview, examination, medical decision making process, and medical care plan development were reviewed and approved by the faculty preceptor. The faculty preceptor is aware and concurs with the plan as stated in the body of this note and will atte st to such by his/her cosignature. ATTENDING NOTE Patient seen and examined at the bedside Guest discussed with resident physician Scheduled for repeat colonoscopy today to localize source of bleeding Possible surgical intervention was a localization is done Dr. walls on the case already , Transfuse as needed to keep hemoglobin more than 7 Received 2 units of PRBC last night. H&H is stable, H&H every 8 hours MONIK AMBROSE DO October 20, 2018 10:07 ELDON ELMORE MD October 20, 2018 12:44
--- NOTE | 2018-10-20 12:13 | CR.PDOC ---
General Surgery Consultation Date of Consultation 10/19/18 History and Physical CONSULT REPORT FOR: Dr. Castle (hospitalist service) REASON FOR CONSULTATION: persistent/recurrent gastrointestinal bleeding HISTORY OF PRESENT ILLNESS: Patient is currently admitted in the hospital for lower gastrointestinal bleeding., Which seems to be either persistent or recurrent bloody bowel movements. He was admitted 10/13/2018 with reports of bloody-appearing stools. His hemoglobin at that time was found to be markedly low at 5.8. He subsequently received blood transfusion of 3 units packed red cells. He also underwent upper endoscopy and colonoscopy. Upper endoscopy was negative for any evidence of bleeding. Colonoscopy shows presence of blood throughout the whole colon but the exact site of bleeding was not found. This was determined most likely to be in the right colon given presence of blood throughout the whole colon and absence of it and the small intestine. Throughout his stay he continues to need blood transfusion as well as having intermittent passage of bloody bowel movements. So far it seems he has received 11 units of packed RBCs. He is a mesenteric angiogram performed by Dr. Morales which also failed to localize sites of bleeding. I was subsequently asked to evaluate the patient with regards to his persistent bleeding and need for blood transfusion. PAST MEDICAL HISTORY: PAST MEDICAL HISTORY: 1. HFpEF (LVEF 60-65%) 05/2018 2. COPD 3. REBEKAH on CPAP 4. GERD 5. Gout 6. Paroxysmal Atrial Fibrillation PAST SURGICAL HISTORY: NONE SOCIAL HISTORY: Patient is a current resident of the [facility]. He is a former smoker. He denies any other tobacco use. He denies alcohol use. He denies illicit drug use FAMILY HISTORY: Noncontributory ALLERGIES: Please see below. REVIEW OF SYSTEMS: CONSTITUTIONAL: Denies fevers, chills, nightsweats, unintentional weightloss or weight gain. He ambulates with a walker with need some assistance. He is on the custody assistant's side of [facility] HEENT: Denies changes in vision. Denies dysphagia. Denies hematemesis. CARDIOVASCULAR: Denies chest pain or pressure. Denies palpitations or feelings of the heart racing RESPIRATORY: Denies shortness of breath. Denies cough. Denies hemoptysis. GASTROINTESTINAL: Denies abdominal pain. Admits to bright red blood in his stool for 10 days duration GENITOURINARY: Denies increased frequency. Denies dysuria SKIN: Denies any rashes or lesions MUSCULOSKELETAL: Admits to chronic low back pain NEUROLOGICAL: Denies changes in gait or speech. PSYCHIATRIC: Denies depression or anxiety ENDOCRINE: Denies heat intolerance or cold intolerance HEMATOLOGIC/LYMPHATIC: Denies easy bruising or bleeding. Denies history of blood clots in legs or lungs ALLERGIES: Please see below. FAMILY HISTORY: Noncontributory. HOME MEDICATIONS: Please see below. ANCILLARIES: . LABORATORY DATA: Please see below. IMAGING STUDIES: [ He had a A CT scan of the abdomen and pelvis on 10/13/2018 Had a mesenteric angiogram performed by Dr. Morales on 10/18/2018 which was negative for any active bleeding IMPRESSION AND PLAN: Persistent/Recurrent Lower GI bleeding with multiple transfusions (12 so far) I have spoken to Dr. Vallecillo with regards the patient. He will schedule him for a repeat colonoscopy on Tuesday.. Performed a colonoscopy in his presentation and those the exact site or cause of the bleeding was not identified he suspects this is from the right colon as he found clear areas of the small bowel without any blood a few centimeters past the terminal ileum. He continues to bleed intermittently and required blood transfusion. So far the time I saw the patient he has had 12 units of packed RBCs. He has undergone mesenteric angiogram by Dr. Souza per reports did not find any bleeding. Hopefully this gives as a better idea on the location of the bleeding likewise the nature of it. Other options will be a bleeding scan at the time that he is actively bleeding though logistics porras, this is difficult to set up (especially if and when this happens in the middle of the night). Will await the result of the colonoscopy, possibly may need subtotal colectomy if bleeding does not stop by itself or not fully localized. Vital Signs Vital Signs Date Time Temp Pulse Resp B/P (MAP) Pulse Ox O2 Delivery O2 Flow Rate FiO2 10/19/18 12:00 98.2 70 16 110/56 (74) 96 10/16/18 07:31 1.0 10/13/18 15:23 Nasal Cannula I&Os I&O- Last 24 Hours up to 6 AM 10/19/18 06:00 Intake Total 1120 ml Output Total 1100 ml Balance 20 ml Laboratory Data Labs 24H Laboratory Tests 2 10/18/18 18:09: Bedside Glucose (Misc Panel) 131H 10/19/18 00:44: Bedside Glucose (Misc Panel) 165H 10/19/18 04:57: Nucleated Red Blood Cells % (auto) 0.0, Anion Gap 5L, Glomerular Filtration Rate > 60.0, Blood Urea Nitrogen 14, Creatinine 1.03, Sodium Level 138, Potassium Level 4.1, Chloride Level 108H, Carbon Dioxide Level 25, Calcium Level 7.4L 10/19/18 05:29: Bedside Glucose (Misc Panel) 121H CBC/BMP Laboratory Tests 10/18/18 18:45 10/18/18 23:19 10/19/18 04:57 Red Blood Count 2.60 L, Mean Corpuscular Volume 91.2, Mean Corpuscular Hemoglobin 30.0, Mean Corpuscular Hemoglobin Concent 32.9, Red Cell Distribution Width 15.5 H, Calcium Level 7.4 L Home Medications Scheduled Allopurinol (Allopurinol) 100 Mg Tab, 200 MG PO DAILY, (Reported) Apixaban (Eliquis) 2.5 Mg Tablet, 2.5 MG PO BID, (Reported) Aspirin (Aspirin) 81 Mg Tab.chew, 81 MG PO DAILY, (Reported) Calcium Carbonate/Vitamin D3 (Calcium 600 with Vit D Chew Tb) 1 Each Tab.chew, 1 CHW PO BID, (Reported) Digoxin (Digoxin) 125 Mcg Tab, 125 MCG PO DAILY, (Reported) Docusate Sodium (Docusate Sodium) 100 Mg Capsule, 200 MG PO QHS, (Reported) Dronedarone (Multaq) 400 Mg Tab, 400 MG PO BID, (Reported) Ferrous Gluconate (Ferrous Gluconate) 324 Mg Tab, 324 MG PO BID, (Reported) Fexofenadine HCl (Melinda Allergy) 180 Mg Tab, 180 MG PO DAILY, (Reported) Folic Acid (Folic Acid) 1 Mg Tab, 1 MG PO DAILY, (Reported) Insulin Glargine,Hum.rec.anlog (Basaglar Kwikpen U-100) 100 Unit/1 Ml Insuln.pen, 36 UNIT SC DAILY, (Reported) AT 0600 Levothyroxine Sodium (Levothyroxine Sodium) 125 Mcg Tab, 125 MCG PO DAILY, (Reported) AT 0600 Linagliptin (Tradjenta) 5 Mg Tablet, 5 MG PO DAILY, (Reported) Lovastatin (Lovastatin) 10 Mg Tab, 10 MG PO QHS, (Reported) Morphine Sulfate (Morphine Sulfate ER) 15 Mg Tabcr, 15 MG PO QHS, (Reported) Morphine Sulfate (Morphine Sulfate ER) 30 Mg Tablet.er, 30 MG PO DAILY, (Reported) Naloxegol Oxalate (Movantik) 25 Mg Tablet, 25 MG PO DAILY, (Reported) Buffalo-3/Dha/Epa/Fish Oil (Fish Oil EC 1,000 mg Softgel) 1 Cap Cap, 1 CAP PO BID, (Reported) Omeprazole (Omeprazole) 20 Mg Cap, 20 MG PO DAILY, (Reported) Potassium Chloride (K-Tab ER) 10 Meq Tab, 20 MEQ PO BID, (Reported) Sennosides/Docusate Sodium (Docusate Sodium-Senna Tablet) 1 Each Tablet, 2 TAB PO DAILY, (Reported) Torsemide (Torsemide) 20 Mg Tab, 40 MG PO DAILY, (Reported) Scheduled PRN Acetaminophen (Acetaminophen) 325 Mg Tablet, 650 MG PO Q4H PRN for PAIN, (Reported) Acetaminophen with Codeine (Acetaminophen-Cod #3 Tablet) 1 Each Tablet, 1 TAB PO QID PRN for PAIN, (Reported) Melatonin (Melatonin) 10 Mg Cap, 10 MG PO QHS PRN for INSOMNIA, (Reported) Milk Of Magnesia (Milk of Magnesia) 2,400 Mg/10 Ml Oral.susp, 30 ML PO DAILY PRN for CONSTIPATION, (Reported) Nitroglycerin (Nitrostat) 0.4 Mg Subl, 0.4 MG SL NITRO PRN for CHEST PAIN, (Reported) Polyethylene Glycol 3350 (Miralax) 119 Gm Powder, 17 GM PO DAILY PRN for CONSTIPATION, (Reported) Allergies Coded Allergies: Beta-Blockers (Beta-Adrenergic Bloc (Verified Allergy, Unknown, 09/13/18) spironolactone (Verified Allergy, Unknown, 09/13/18) warfarin (Verified Allergy, Unknown, 09/13/18) indomethacin (Verified Adverse Reaction, Intermediate, HALLUCINATIONS, 09/13/18) DENI NAILS MD October 19, 2018 13:00
[2018-10-20 13:24] LABS: HEMATOCRIT 27.3 % (42.0-52.0); HEMOGLOBIN 9.2 g/dl (13.5-17.5)
[2018-10-20 13:33] LABS: INR 1.11; PROTHROMBIN TIME 14.4 SECONDS (12.1-14.4)
[2018-10-20 13:34] LABS: PARTIAL THROMBOPLASTIN TIME 31.8 SECONDS (25.4-37.6)
[2018-10-20] MEDS ORDERED: PROPOFOL 200 MG/20 ML VIAL As Ordered ONE ×2 (17:12→19:08)
[2018-10-20] MEDS ORDERED: LIDOCAINE 2% INJ 100 MG/5 ML SDV (FOR ANES.) As Ordered ONE (17:12)
[2018-10-20] MEDS ORDERED: PHENYLephrine HCL 500 MCG/5 ML (100MCG/ML) SYRINGE (J2370) As Ordered ONE (17:56)
[2018-10-20] MEDS ORDERED: LR 1,000 ML IV SCH (19:45)
--- NOTE | 2018-10-20 20:08 | ROOR ---
Patient Name: Ari Fish Procedure Date: 10/20/2018 5:28 PM Date of : 1935 Age: 82 Room: Main OR Gender: Male Note Status: Finalized Procedure: Colonoscopy Indications: Hematochezia Providers: Ryan VALLECILLO MD Referring MD: 1. No Referring Physician 1. No Referring Physician, Admin. Requesting Provider: Medicines: Monitored Anesthesia Care Complications: No immediate complications. Procedure: Pre-Anesthesia Assessment: - The heart rate, respiratory rate, oxygen saturations, blood pressure, adequacy of pulmonary ventilation, and response to care were monitored throughout the procedure. The Colonoscope was introduced through the anus and advanced to 5 cm into the ileum. The colonoscopy was performed without difficulty. The patient tolerated the procedure well. The quality of the bowel preparation was adequate. Findings: Clotted blood was found from anus to cecum. Lavage of the area was performed using copious amounts, resulting in clearance with adequate visualization. Red blood was found from anus to cecum. Lavage of the area was performed using copious amounts, resulting in clearance with adequate visualization. The terminal ileum appeared normal. There is no endoscopic evidence of active bleeding in the entire colon. - Endoclips remain attached ~ hepatic fx. from previous procedure. Mild sigmoid diverticulosis. Small internal hemorrhoids. Impression: - Blood (clots and fresh) from anus to cecum. Source of bleeding was not found. - The examined portion of the ileum was normal (no blood is seen in Ileum). - Incidental: - Endoclips remain attached from previous procedure. - Mild sigmoid diverticulosis. - Small internal hemorrhoids. Recommendation: - Clear liquid diet. - Monitor for repeat bleeding, transfuse for repeat bleeding. - Surgical consult for repeated severe bleeding. - (I cleared his colon of most of blood/clots. Stools should remain clear unless actively rebleeding). Ryan Vallecillo MD Ryan VALLECILLO MD 10/20/2018 8:07:54 PM Electronically signed by Ryan VALLECILLO MD Number of Addenda: 0 Note Initiated On: 10/20/2018 5:28 PM Estimated Blood Loss: Estimated blood loss: none.
[2018-10-20] MEDS: SIMVASTATIN 10 MG TAB PO SCH (20:37)
[2018-10-20] MEDS: MORPHINE 15 MG SA TAB PO SCH (20:38)
[2018-10-20 22:07] LABS: HEMOGLOBIN 9.8 g/dl (13.5-17.5)
[2018-10-21 04:00] VITALS: BP 106/47
[2018-10-21 05:30] LABS: HEMATOCRIT 21.9 % (42.0-52.0)
[2018-10-21 05:53] LABS: HEMOGLOBIN 7.3 g/dl (13.5-17.5)
[2018-10-21] MEDS: LEVOTHYROXINE 125MCG TABLET (0.125MG) PO SCH (06:02)
[2018-10-21] MEDS: SLF 3 ML SYR IV SCH ×3 (06:02→21:04)
[2018-10-21] MEDS ORDERED: DEXTROSE 50% 50 ML SYRINGE IV PRN (06:45)
[2018-10-21] MEDS ORDERED: GLUCAGON FOR INJ 1 MG VIAL (J1610) SC PRN (06:45)
[2018-10-21] MEDS ORDERED: GLUCOSE 4 GM CHEW TABLET PO PRN (06:45)
[2018-10-21 08:00] VITALS: BP 126/61
[2018-10-21] MEDS: FOLIC ACID 1 MG TAB PO SCH (09:30)
[2018-10-21] MEDS: DRONEDARONE 400 MG TAB (MULTAQ) PO SCH ×2 (09:30→18:08)
[2018-10-21] MEDS: OMEPRAZOLE 20 MG CAP PO SCH (09:30)
[2018-10-21] MEDS: FEXOFENADINE 60 MG TAB PO SCH (09:30)
[2018-10-21] MEDS: HumaLOG INSULIN (NovoLOG) PER UNIT SC SCH ×5 (09:30→21:00)
[2018-10-21] MEDS: DIGOXIN 0.125 MG TAB PO SCH (09:30)
[2018-10-21] MEDS: MORPHINE 30 MG SA TAB PO SCH (10:33)
--- NOTE | 2018-10-21 11:34 | IPNPDOC ---
Date Seen The patient was seen on 10/21/18. Progress Note SUBJECTIVE: Patient was seen and examined this morning. He had received his second colonoscopy yesterday however the source of bleeding was unable to be localized. The patient has continued to have bloody bowel movements with bright red blood and clots. He remains fairly asymptomatic and makes no complaints. OBJECTIVE PHYSICAL EXAMINATION: VITAL SIGNS: Please see below. GENERAL: Awake, alert, and oriented. He is frail appearing. He is in no acute distress. Lying comfortably in bed eating breakfast HEENT: Atraumatic normocephalic. Eyes are nonicteric. Trachea is midline. Mucous membranes are pink and moist. Dentition is poor CARDIOVASCULAR: Regular rate and rhythm. 2/6 systolic ejection murmur. No clicks or rubs RESPIRATORY: Diminished breath sounds bilaterally. Good respiratory effort. No wheezes, rhonchi, or rales ABDOMINAL: Soft, nondistended, nontender to palpation throughout entire abdomen. No rebound tenderness or guarding. Positive bowel sounds EXTREMITIES: No edema. Full and equal pulses in bilateral upper and lower extremities. Continued chronic nonhealing ulcer on right great toe. NEUROLOGICAL: No focal neurological deficits PSYCHOLOGICAL: Mood and affect appropriate LABORATORY DATA, IMAGING STUDIES, MICROBIOLOGY: Please see below. DVT prophylaxis ordered?: Mechanical 2/2 GI bleed ASSESSMENT AND PLAN: Patient is an 82 year old male with a past medical history significant for HFpEF, COPD, REBEKAH, and atrial fibrillation who presented to the [facility] ER after 2 days of hematochezia. Patient was found to be rather asymptomatic however was hypotensive with a hemoglobin of 5.8. Patient was admitted to hospitalist service for suspected acute blood loss anemia secondary to a GI bleed. Since his hospitalization he has received 2 colonoscopies and a mesenteri c angiogram without any discernible source of bleeding. PROBLEMS: 1. Acute Blood Loss Anemia 2/2 Upper vs Lower GI bleed -Patient has received 2 colonoscopies and a mesenteric angiogram without nash ccess in locating the patients source of bleeding. GI had taken the patient yesterday for his second colonoscopy and was once again unable to locate a source. In the previous colonoscopy a mucosal spot was identified and clips were placed in what was believed to be the splenic flexure. On repeat this appeared to be at the hepatic flexure. The patient continues to bleed and receive transfusions as needed. He has currently received 16 transfusion since admission and will receive a total of 17 by the end of today. Surgical consult has been placed and they have seen the patient. Unfortunately the patient is a very poor surgical candidate and he may not survive a major abdominal surgery. At this point in time we have no discernible source of bleeding which would indicate the patient would need a subtotal colectomy. However, even though a lower GI source of bleeding is suspected we can not be certain and the patient may continue to bleed regardless of procedure. -GI consultation has been placed and are following. Recommendations and assistance in care is greatly appreciated. -Surgical consult has been placed and patient has been evaluated. Their recommendations and assistance is greatly appreciated. -Patient will be placed on an Octreotide drip in hopes to stop the bleeding. A KUB abdomen has been ordered to assess whether the clips placed during the patients colonoscopy were at the splenic or hepatic flexure. -Patient may benefit from a Nuclear Medicine RBC tagged scan. Unfortuneately, this can not be completed today. If he continues to bleed without an identified source then the patient may need to be transferred -Will continue to monitor H&H and transfuse PRN 2. Atrial Fibrillation -Patient has a history of atrial fibrillation. -Continue Digoxin and Multaq. He remains rate controlled -Currently holding Eliquis due to GI bleed. Will likely not resume ant icoagulation upon discharge as patient has a significant GI bleed with ongoing blood loss. 3. IDDM -Patient is currently NPO. -Sliding Scale insulin Q6H fingersticks -Will resume home basal coverage 35 units of levemir once patient begins diet 4. Chronic Lower Back Pain -MS Cotin 30mg daily PO and 15mg QHS 5. Hypothyroidism -Continue Synthroid 6. Seasonal Allergies -Continue Melinda 7. DVT prophylaxis -Mechanical prophylaxis with TEDs and Sequentials DISPOSITION: Patients overall prognosis is guarded. He has no discernible source of bleeding identified. He is a poor surgical candidate. If his bleeding stops there is a chance that he will rebleed. VS, I&O, 24H, Fishbone Vital Signs/I&O Vital Signs Date Time Temp Pulse Resp B/P (MAP) Pulse Ox O2 Delivery O2 Flow Rate FiO2 10/21/18 10:33 20 10/21/18 09:30 74 10/21/18 08:00 98.1 126/61 (82) 95 10/16/18 07:31 1.0 I&O- Last 24 Hours up to 6 AM 10/21/18 06:00 Intake Total 650 ml Output Total 450 ml Balance 200 ml Laboratory Data 24H LABS Laboratory Tests 2 10/20/18 12:16: Bedside Glucose (Misc Panel) 185H 10/20/18 12:56: Prothrombin Time 14.4, Prothromb Time International Ratio 1.11, Activated Partial Thromboplast Time 31.8 10/20/18 16:48: Bedside Glucose (Misc Panel) 131H 10/21/18 00:55: Bedside Glucose (Misc Panel) 215H 10/21/18 06:00: Bedside Glucose (Misc Panel) 120H 10/21/18 07:52: Bedside Glucose (Misc Panel) 143H CBC/BMP Laboratory Tests 10/20/18 12:56 10/20/18 21:55 10/21/18 04:59 GME ATTESTATION GME ATTESTATION My faculty preceptor for this patient encounter was physically present during the encounter and was fully available. All aspects of the patient interview, examination, medical decision making process, and medical care plan development were reviewed and approved by the faculty preceptor. The faculty preceptor is aware and concurs with the plan as stated in the body of this note and will attest to such by his/her cosignature. ATTENDING NOTE Patient seen and examined at the bedside As discussed with Dr. Demarco from surgery and resident physician Patient is not a surgical candidate. Hence conservative medical management will be provided Patient will be started on octreotide today and hopefully get tried to get a bleeding scan done to localize the area of bleeding H&H every 8 hours. And transfuse as needed MONIK AMBROSE DO October 21, 2018 11:34 ELDON ELMORE MD October 21, 2018 16:23
[2018-10-21 12:00] VITALS: BP 94/46
[2018-10-21] MEDS: OCTREOTIDE ACETATE 1,200 MCG in NS 238.8 ML IV SCH (12:00)
--- NOTE | 2018-10-21 14:30 | REP ---
Clinical: GI bleed. Technique: Two supine views of the abdomen and pelvis. Findings: Bowel gas pattern is nonspecific. Calcification in the right upper quadrant likely small nonobstructing renal stone. No organomegaly. Skeletal structures demonstrate age-related degenerative changes. Impression: Nonspecific bowel gas pattern. 5 mm nonobstructing right renal calculus. Electronically Signed by Thomas Landaverde MD 10/21/2018 02:22 P
[2018-10-21 16:00] VITALS: BP 134/60
[2018-10-21 16:31] LABS: HEMATOCRIT 26.3 % (42.0-52.0); HEMOGLOBIN 8.7 g/dl (13.5-17.5)
[2018-10-21 20:00] VITALS: BP 105/57
[2018-10-21] MEDS: MORPHINE 15 MG SA TAB PO SCH (21:03)
[2018-10-21] MEDS: SIMVASTATIN 10 MG TAB PO SCH (21:04)
[2018-10-21 21:22] LABS: HEMOGLOBIN 8.4 g/dl (13.5-17.5)
[2018-10-21 23:59] VITALS: BP 100/54
[2018-10-22 04:00] VITALS: BP 104/51
[2018-10-22] MEDS: LEVOTHYROXINE 125MCG TABLET (0.125MG) PO SCH (06:05)
[2018-10-22] MEDS: SLF 3 ML SYR IV SCH ×3 (06:06→21:22)
[2018-10-22 06:29] LABS: HEMOGLOBIN 7.8 g/dl (13.5-17.5)
[2018-10-22] MEDS: HumaLOG INSULIN (NovoLOG) PER UNIT SC SCH ×4 (08:22→21:00)
[2018-10-22] MEDS: MORPHINE 30 MG SA TAB PO SCH (08:23)
[2018-10-22] MEDS: OMEPRAZOLE 20 MG CAP PO SCH (08:23)
[2018-10-22] MEDS: DRONEDARONE 400 MG TAB (MULTAQ) PO SCH ×2 (08:23→17:59)
[2018-10-22] MEDS: FEXOFENADINE 60 MG TAB PO SCH (08:23)
[2018-10-22] MEDS: FOLIC ACID 1 MG TAB PO SCH (08:23)
[2018-10-22] MEDS: DIGOXIN 0.125 MG TAB PO SCH (08:24)
[2018-10-22 08:43] VITALS: BP 135/60
--- NOTE | 2018-10-22 11:10 | IPN ---
DATE: 10/22/2018 I spoke with the resident on his service yesterday and we are able to get the KUB which showed the clips in the right-hand side of the abdomen. The patient had a small clot last night bowel movement and overall his hematocrit has slowly drifted down but he has not had a significant amount bleeding that he had previously. The patient actually feels better as well and was started on a regular diet this morning. His bleeding scan was not obtained however. Then on his abdominal exam his abdomen is soft, nontender, nondistended, still frail-appearing individual. IMPRESSION AND PLAN: GI bleeding. Currently I am not convinced that he has ongoing bleeding. He has not had from a clinical standpoint, we will have to see what his hematocrit does the rest of the day but if it is continuing to decrease then obviously has some GI bleeding that continuing and once again the bleeding scan would be helpful in determining how to limit our operative intervention. Once again operative intervention would be an extended right colectomy at the minimum and in this individual I have concerns that there is some real mortality associated with operative intervention for him. Unfortunately he will not be able to continue on this current process and will probably need to stop or we will have to bite the bullet and discuss further options with the family. He had been started on a regular diet but I would do feel with his GI bleeding issue and the concern for operative intervention forefront of our minds that we should keep him on a clear liquid diet at minimum if not nothing by mouth.
--- NOTE | 2018-10-22 11:10 | IPN ---
DATE: 10/22/2018 The patient overall has had some bright red blood per rectum. It is mostly clots. The nurses have noticed this. I have talked to the family today and the concern at this point is that we have not identified a specific bleeding area. There is some assumption that the bleeding is coming from the right colon given the entire colon has blood within it, although this does not rule out a small bowel etiology. There are also some clips in the hepatic, possible splenic flexure, and this area was viewed at the second colonoscopy and did not reveal any active bleeding, despite irrigation, etc. The patient overall is now continuing with some GI bleed and recommendation at this time is bleeding scan. On his abdominal exam, he is softly distended, nontender. No guarding and no rebound is appreciated. IMPRESSION AND PLAN: 1. The patient has a GI bleed and indeed the most likely etiology is a lower GI bleed. However, given that we do not have a specific source, I do feel two issues may be helpful - one is to determine specifically where those clips are and a KUB is reasonable, two - starting him on octreotide may actually resolve his bleeding issues. If it is not resolving his bleeding issues, a bleeding scan is paramount in helping guide what should proceed for an operative intervention. He is an extremely frail individual and extremely high risk should he need to undergo operative intervention. Thus, at this point, my recommendation is that if we can obtain a bleeding scan today that would be optimum and start him on some octreotide and get a KUB. Given that this has been going on a while, I do feel that emergent intervention with operative intervention today is not necessary, but hopefully we will have some more definitive information with bleeding scan.
--- NOTE | 2018-10-22 11:58 | IPNPDOC ---
Subjective Date Seen The patient was seen on 10/22/18. Subjective Chief Complaint/HPI Patient is comfortable, does not complain of any new p.m. with blood General: Denies: ROS Unobtainable, Chills, Night Sweats, Fatigue, Malaise, Normal Appetite, Other Symptoms Constitutional: Denies: Chills, Fever, Malaise, Night Sweats, Weakness, Fatigue, Weight Loss, Lethargy, Other Eyes: Denies: Pain, Vision change, Conjunctivae inflammation, Eyelid inflammation, Redness, Other ENT: Denies: Head Aches, Ear Pain, Dysphagia, Sinus Congestion, Post Nasal Drip, Sore Throat, Epistaxis, Other Symptoms Skin: Denies: Rash, Lesions, Jaundice, Bruising, Itching, Dry, Breakdown, Nail Changes, Other Pulmonary: Denies: Dyspnea, Cough, Pleuritic Chest Pain, Other Symptoms Cardiovascular: Denies: Chest Pain, Palpitations, Orthopnea, Paroxysmal Noc. Dyspnea, Edema, Lt Headedness, Other Symptoms Gastrointestinal: Denies: Nausea, Vomiting, Abdominal Pain, Diarrhea, Consti pation, Melena, Hematochezia, Other Symptoms Genitourinary: Denies: Dysuria, Frequency, Incontinence, Hematuria, Retention, Other Symptoms Hematologic: Denies: Bruising, Bleeding Excessively, Petecchia, Purpura, Enlarged Lymph Nodes, Other Hematologic Endocrine: Denies: Polydipsia, Polyphagia, Polyuria, Heat Intolerance, Cold Intolerance, Other Endocrine Sx Musculoskeletal: Denies: Neck Pain, Back Pain, Shoulder Pain, Arm Pain, Hand Pain, Leg Pain, Foot Pain, Joint Pain, Muscle Pain, Spasms, Other Symptoms Neurological: Denies: Weakness, Numbness, Incoordination, Change in speech, Co nfusion, Seizures, Other Symptoms Psych: Denies: Mood Normal, Anxiety, Depression, Memory Issues, Thoughts of Self Harm, Anger, Thoughts of Harming Other, Other Psych Objective Physical Examination General Exam: Positive: Alert, Cooperative Eye Exam: Positive: PERRLA ENT Exam: Positive: Atraumatic, Mucous membr. moist/pink Chest Exam: Positive: Clear to auscultation Heart Exam: Positive: Rate Normal, Normal S1, Normal S2 Abdomen Exam: Positive: Normal bowel sounds, Soft Extremity Exam: Positive: Normal pulses Skin Exam: Positive: Nl turgor and temperature Neuro Exam: Positive: Normal Gait, Normal Speech Psych Exam: Positive: Mental status NL, Mood NL, Oriented x 3 Assessment /Plan Problems (1) GI bleed Status: Acute Problem Text: 1. Acute Blood Loss Anemia 2/2 Upper vs Lower GI bleed -Patient has received 2 colonoscopies and a mesenteric angiogram without success in locating the patients source of bleeding. GI had taken the patient yesterday for his second colonoscopy and was once again unable to locate a source. In the previous colonoscopy a mucosal spot was identified and clips were placed in what was believed to be the splenic flexure. On repeat this appeared to be at the hepatic flexure. The patient continues to bleed and receive transfusions as needed. He has currently received 16 transfusion since admission and will receive a total of 17 by the end of today. Surgical consult has been placed and they have seen the patient. Unfortunately the patient is a very poor surgical candidate and he may not survive a major abdominal surgery. At this point in time we have no discernible source of bleeding which would indicate the patient would need a subtotal colectomy. However, even though a lower GI source of bleeding is suspected we can not be certain and the patient may continue to bleed regardless of procedure. -GI consultation has been placed and are following. Recommendations and assistance in care is greatly appreciated. -Surgical consult has been placed and patient has been evaluated. Their recommendations and assistance is greatly appreciated. -Patient will be placed on an Octreotide drip in hopes to stop the bleeding. A KUB abdomen has been ordered to assess whether the clips placed during the patients colonoscopy were at the splenic or hepatic flexure. -Patient may benefit from a Nuclear Medicine RBC tagged scan. Unfortuneately, this can not be completed today. If he continues to bleed without an identified source then the patient may need to be transferred -Will continue to monitor H&H and transfuse PRN -Surgical follow-up appreciated. Continue octreotide and will monitor H&H every 8 hours and transfuse as needed 2. Atrial Fibrillation -Patient has a history of atrial fibrillation. -Continue Digoxin and Multaq. He remains rate controlled -Currently holding Eliquis due to GI bleed. Will likely not resume anticoagulation upon discharge as patient has a significant GI bleed with ongoing blood loss. 3. IDDM -Patient is currently NPO. -Sliding Scale insulin Q6H fingersticks -Will resume home basal coverage 35 units of levemir once patient begins diet 4. Chronic Lower Back Pain -MS Cotin 30mg daily PO and 15mg QHS 5. Hypothyroidism -Continue Synthroid 6. Seasonal Allergies -Continue Melinda 7. DVT prophylaxis -Mechanical prophylaxis with TEDs and Sequentials Plan/VTE VTE Prophylaxis Ordered?: Yes VTE Exclusion Pharmacological: Active Bleeding VS, I&O, 24H, Fishbone Vital Signs/I&O Vital Signs Date Time Temp Pulse Resp B/P (MAP) Pulse Ox O2 Delivery O2 Flow Rate FiO2 10/22/18 08:43 98.0 60 18 135/60 (85) 98 10/16/18 07:31 1.0 I&O- Last 24 Hours up to 6 AM 10/22/18 06:00 Intake Total 1260 ml Output Total 1051 ml Balance 209 ml Laboratory Data 24H LABS Laboratory Tests 2 10/21/18 17:39: Bedside Glucose (Misc Panel) 165H 10/21/18 21:01: Bedside Glucose (Misc Panel) 176H 10/22/18 07:47: Bedside Glucose (Misc Panel) 151H CBC/BMP Laboratory Tests 10/21/18 16:28 10/21/18 21:16 10/22/18 05:45 ELDON ELMORE MD October 22, 2018 11:58
[2018-10-22 12:00] VITALS: BP 109/50
[2018-10-22] MEDS: OCTREOTIDE ACETATE 1,200 MCG in NS 238.8 ML IV SCH (13:04)
[2018-10-22 14:12] LABS: HEMATOCRIT 24.8 % (42.0-52.0); HEMOGLOBIN 8.1 g/dl (13.5-17.5)
[2018-10-22 16:00] VITALS: BP 114/53
[2018-10-22 20:00] VITALS: BP 114/56
[2018-10-22] MEDS: SIMVASTATIN 10 MG TAB PO SCH (21:22)
[2018-10-22] MEDS: MORPHINE 15 MG SA TAB PO SCH (21:22)
[2018-10-22 22:00] LABS: HEMATOCRIT 21.4 % (42.0-52.0)
[2018-10-22] MEDS ORDERED: FUROSEMIDE 20 MG/2 ML VIAL (J1940) IV SCH (22:30)
[2018-10-22 23:59] VITALS: BP 100/49
[2018-10-23 04:00] VITALS: BP 117/58
[2018-10-23] MEDS: SLF 3 ML SYR IV SCH ×3 (06:49→20:38)
[2018-10-23] MEDS: LEVOTHYROXINE 125MCG TABLET (0.125MG) PO SCH (06:49)
[2018-10-23 08:00] VITALS: BP 130/58
[2018-10-23 08:15] LABS: HEMATOCRIT 27.2 % (42.0-52.0); HEMOGLOBIN 9.1 g/dl (13.5-17.5)
[2018-10-23] MEDS: DRONEDARONE 400 MG TAB (MULTAQ) PO SCH ×2 (09:00→17:09)
[2018-10-23] MEDS: FOLIC ACID 1 MG TAB PO SCH (09:00)
[2018-10-23] MEDS: OMEPRAZOLE 20 MG CAP PO SCH (09:00)
[2018-10-23] MEDS: FEXOFENADINE 60 MG TAB PO SCH (09:01)
[2018-10-23] MEDS: DIGOXIN 0.125 MG TAB PO SCH (09:01)
[2018-10-23] MEDS: MORPHINE 30 MG SA TAB PO SCH (09:02)
[2018-10-23] MEDS: HumaLOG INSULIN (NovoLOG) PER UNIT SC SCH ×4 (09:03→20:42)
--- NOTE | 2018-10-23 10:14 | IPNPDOC ---
Subjective Date Seen The patient was seen on 10/23/18. Subjective Chief Complaint/HPI Patient wanted his diet to be upgraded, but he was informed that surgery wishes to continue clear liquid diet that he might he might need surgical intervention at any point, no abdominal pain. No BM General: Denies: ROS Unobtainable, Chills, Night Sweats, Fatigue, Malaise, Normal Appetite, Other Symptoms Constitutional: Denies: Chills, Fever, Malaise, Night Sweats, Weakness, Fatigue, Weight Loss, Lethargy, Other Eyes: Denies: Pain, Vision change, Conjunctivae inflammation, Eyelid inflammation, Redness, Other ENT: Denies: Head Aches, Ear Pain, Dysphagia, Sinus Congestion, Post Nasal Drip, Sore Throat, Epistaxis, Other Symptoms Skin: Denies: Rash, Lesions, Jaundice, Bruising, Itching, Dry, Breakdown, Nail Changes, Other Pulmonary: Denies: Dyspnea, Cough, Pleuritic Chest Pain, Other Symptoms Cardiovascular: Denies: Chest Pain, Palpitations, Orthopnea, Paroxysmal Noc. Dyspnea, Edema, Lt Headedness, Other Symptoms Gastrointestinal: Denies: Nausea, Vomiting, Abdominal Pain, Diarrhea, Constipation, Melena, Hematochezia, Other Symptoms Genitourinary: Denies: Dysuria, Frequency, Incontinence, Hematuria, Retention, Other Symptoms Hematologic: Denies: Bruising, Bleeding Excessively, Petecchia, Purpura, Enlarged Lymph Nodes, Other Hematologic Endocrine: Denies: Polydipsia, Polyphagia, Polyuria, Heat Intolerance, Cold Intolerance, Other Endocrine Sx Musculoskeletal: Denies: Neck Pain, Back Pain, Shoulder Pain, Arm Pain, Hand Pain, Leg Pain, Foot Pain, Joint Pain, Muscle Pain, Spasms, Other Symptoms Neurological: Denies: Weakness, Numbness, Incoordination, Change in speech, Confusion, Seizures, Other Symptoms Psych: Denies: Mood Normal, Anxiety, Depression, Memory Issues, Thoughts of Self Harm, Anger, Thoughts of Harming Other, Other Psych Objective Physical Examination General Exam: Positive: Alert, Cooperative Eye Exam: Positive: PERRLA ENT Exam: Positive: Atraumatic, Mucous membr. moist/pink Chest Exam: Positive: Clear to auscultation Heart Exam: Positive: Rate Normal, Normal S1, Normal S2 Abdomen Exam: Positive: Normal bowel sounds, Soft Extremity Exam: Positive: Normal pulses Skin Exam: Positive: Nl turgor and temperature Neuro Exam: Positive: Normal Gait, Normal Speech Psych Exam: Positive: Mental status NL, Mood NL, Oriented x 3 Assessment /Plan Problems (1) GI bleed Status: Acute Problem Text: 1. Acute Blood Loss Anemia 2/2 Upper vs Lower GI bleed -Patient has received 2 colonoscopies and a mesenteric angiogram without success in locating the patients source of bleeding. GI had taken the patient yesterday for his second colonoscopy and was once again unable to locate a source. In the previous colonoscopy a mucosal spot was identified and clips were placed in what was believed to be the splenic flexure. On repeat this appeared to be at the hepatic flexure. The patient continues to bleed and receive transfusions as needed. He has currently received 16 transfusion since admission and will receive a total of 17 by the end of today. Surgical consult has been placed and they have seen the patient. Unfortunately the patient is a very poor surgical candidate and he may not survive a major abdominal surgery. At this point in time we have no discernible source of bleeding which would indicate the patient would need a subtotal colectomy. However, even though a lower GI source of bleeding is suspected we can not be certain and the patient may continue to bleed regardless of procedure. -GI consultation has been placed and are following. Recommendations and assistance in care is greatly appreciated. -Surgical consult has been placed and patient has been evaluated. Their recommendations and assistance is greatly appreciated. -Patient will be placed on an Octreotide drip in hopes to stop the bleeding. A KUB abdomen has been ordered to assess whether the clips placed during the patients colonoscopy were at the splenic or hepatic flexure. -Patient may benefit from a Nuclear Medicine RBC tagged scan. Unfortuneately, this can not be completed today. If he continues to bleed without an identified source then the patient may need to be transferred Discussed with Dr. Demarco today. We will get nuclear medicine RBC tagged scan to localize bleeding, then hopefully patient will be taken to or for hemicolectomy to stop bleeding, H&H is 9.1, of transfusion of 2 units of PRBC last night Patient will be kept on clear liquid diet and will continue monitoring hemoglobin every 8 hours and transfuse as needed 2. Atrial Fibrillation -Patient has a history of atrial fibrillation. -Continue Digoxin and Multaq. He remains rate controlled -Currently holding Eliquis due to GI bleed. Will likely not resume anticoagulation upon discharge as patient has a significant GI bleed with ongoing blood loss. 3. IDDM -Patient is currently NPO. -Sliding Scale insulin Q6H fingersticks -Will resume home basal coverage 35 units of levemir once patient begins diet 4. Chronic Lower Back Pain -MS Cotin 30mg daily PO and 15mg QHS 5. Hypothyroidism -Continue Synthroid 6. Seasonal Allergies -Continue Melinda 7. DVT prophylaxis -Mechanical prophylaxis with TEDs and Sequentials Plan/VTE VTE Prophylaxis Ordered?: Yes VTE Exclusion Pharmacological: Active Bleeding VS, I&O, 24H, Fishbone Vital Signs/I&O Vital Signs Date Time Temp Pulse Resp B/P (MAP) Pulse Ox O2 Delivery O2 Flow Rate FiO2 10/23/18 09:02 18 10/23/18 09:01 65 10/23/18 08:00 98.6 130/58 (82) 97 I&O- Last 24 Hours up to 6 AM 10/23/18 06:00 Intake Total 2260 ml Output Total 580 ml Balance 1680 ml Laboratory Data 24H LABS Laboratory Tests 2 10/22/18 11:55: Bedside Glucose (Misc Panel) 134H 10/22/18 17:17: Bedside Glucose (Misc Panel) 155H 10/22/18 21:16: Bedside Glucose (Misc Panel) 157H 10/23/18 07:41: Bedside Glucose (Misc Panel) 140H CBC/BMP Laboratory Tests 10/22/18 13:50 10/22/18 21:52 10/23/18 08:05 ELDON ELMORE MD October 23, 2018 10:14
--- NOTE | 2018-10-23 10:53 | IPN ---
DATE: 10/23/2018 Yesterday morning when I saw him he really was not having any bowel movements. However, his hematocrit has dropped overnight. He had a couple small bowel movements last night. There were old clots. However, this morning his hematocrit is back up and appropriately increased. He had some darker stool and looks clinically better this morning. He feels better, is not complaining of any abdominal pain. However, our major issue at this point is his GI bleeding. Every day over this weekend we have discussed the same issue of him being a frail individual and operative intervention not being the best option for him, but may be the only option for him. He at this point understands the current dilemma that we have and where the bleeding is coming from and is hoping to have any minimally invasive least operative intervention as possible. We have discussed multiple options with him and given that we do not have a bleeding scan to completely identify the bleeding source options are as follows: 1. For today it would be an open right colectomy with probable ileostomy. However, if an anastomosis is performed and if the patient rebleeds we would not know if this a small bowel etiology or a colonic etiology. Thus from the standpoint of the right colectomy or more operative intervention I would recommend ileostomy. 2. Possibility #2 is subtotal colectomy. In that case a subtotal colectomy may berry picker a transverse colon lesion that is not appreciated on his colonoscopy. However, a subtotal colectomy does have inherent increased morbidity mortality. 3. Our other option at this point is to wait another 24 hours for a bleeding scan to be performed. If the bleeding scan is performed and indeed identifies a right colonic lesion then a right colonic lesion can be removed with the possibility of a laparoscopic approach. Number one with an ileal colectomy or an anastomosis has a possible end result without need for ostomy. He also understands that identifying the area of bleeding will help target our operative intervention which would also be less of a stress on his body and recovery should be better for him. Thus, I recommend that we wait until tomorrow for the bleeding scan. He at this point was given the options of all three and he stated he would prefer to wait for bleeding scan for tomorrow and after this if there is an identified source proceeding with operative intervention as soon as possible.
[2018-10-23 12:00] VITALS: BP_SYST 110; BP_SYST 98; BP_DIAS 48; BP_DIAS 50
[2018-10-23] MEDS: OCTREOTIDE ACETATE 1,200 MCG in NS 238.8 ML IV SCH (12:13)
[2018-10-23 13:59] LABS: HEMATOCRIT 24.1 % (42.0-52.0)
[2018-10-23] MEDS: ACETAMINOPHEN TAB 650MG DOSE (2X325MG) PO PRN (14:49)
[2018-10-23 16:00] VITALS: BP 101/50
[2018-10-23 20:00] VITALS: BP 120/58
[2018-10-23] MEDS: SIMVASTATIN 10 MG TAB PO SCH (20:38)
[2018-10-23] MEDS: MORPHINE 15 MG SA TAB PO SCH (20:38)
[2018-10-23 21:40] LABS: HEMATOCRIT 22.6 % (42.0-52.0); HEMOGLOBIN 7.5 g/dl (13.5-17.5)
[2018-10-24] VITALS (11 sets, daily range): BP systolic 94–125; BP diastolic 49–60
[2018-10-24 02:43] LABS: HEMATOCRIT 23.6 % (42.0-52.0); HEMOGLOBIN 7.9 g/dl (13.5-17.5)
[2018-10-24] MEDS: LEVOTHYROXINE 125MCG TABLET (0.125MG) PO SCH (05:41)
[2018-10-24] MEDS: SLF 3 ML SYR IV SCH ×3 (05:41→21:24)
--- NOTE | 2018-10-24 07:57 | IPNPDOC ---
Subjective General Date/Time Seen The patient was seen on 10/24/18 at 07:49. Subject Chief Complaint/History The patient is a 82-year-old male admitted with a reason for visit of Gi Bleed. I reviewed the events over the long weekend and discussed case with Dr. Harris. Patient continues to have intermittent bleeding requiring blood transfusion. Otherwise he has been hemodynamically stable but he is on his 21st unit of packed RBCs transfused. He is scheduled for a bleeding scan today to hopefully localized what area of the colon is bleeding which may limit the extent of the colon resection. The other issue is whether or not to place an ileostomy or make an anastomosis. Current Medications Current Medications Current Medications Acetaminophen (Tylenol Tab) 650 mg Q4H PRN PO PAIN OR FEVER Last administered on 10/23/18at 14:49; Start 10/13/18 at 14:15 Dextrose (Dextrose 50%) 25 ml ASDIRECTED PRN IV SEE LABEL COMMENTS; Start 10/13/18 at 14:15; Stop 10/21/18 at 06:40; Status DC Dextrose (Dextrose 50%) 25 ml ASDIRECTED PRN IV SEE LABEL COMMENTS; Start 10/21/18 at 06:45 Diatrizoate Meglum/ Diatrizoate Sod (Gastrografin) 10 ml Q30M PO Last administered on 10/13/18at 12:13; Start 10/13/18 at 12:15; Stop 10/13/18 at 12:46; Status DC Digoxin (Lanoxin) 0.125 mg DAILY PO Last administered on 10/23/18at 09:01; Start 10/14/18 at 09:00 Dronedarone (Multaq) 400 mg BID@0800,1800 PO Last administered on 10/23/18at 17:09; Start 10/13/18 at 18:00 Ferrous Gluconate (Fergon) 324 mg BID PO Last administered on 10/13/18at 20:32; Start 10/13/18 at 21:00; Stop 10/14/18 at 09:26; Status DC Fexofenadine HCl (Melinda) 180 mg DAILY PO Last administered on 10/23/18 09:01; Start 10/14/18 at 09:00 Folic Acid (Folic Acid) 1 mg DAILY PO Last administered on 10/23/18at 09:00; Start 10/14/18 at 09:00 Furosemide (LASIX injection) 20 mg ASDIRECTED IV ; Start 10/22/18 at 22:30; Stop 10/23/18 at 04:01; Status DC Glucagon (Glucagon) 1 mg ASDIRECTED PRN SC SEE LABEL COMMENTS; Start 10/13/18 at 14:15; Stop 10/21/18 at 06:40; Status DC Glucagon (Glucagon) 1 mg ASDIRECTED PRN SC SEE LABEL COMMENTS; Start 10/21/18 at 06:45 Glucose (Glucose) 16 GM ASDIRECTED PRN PO SEE LABEL COMMENTS; Start 10/13/18 at 14:15; Stop 10/21/18 at 06:40; Status DC Glucose (Glucose) 16 GM ASDIRECTED PRN PO SEE LABEL COMMENTS; Start 10/21/18 at 06:45 Home Med (Med Rec Complete!) ASDIRECTED XX ; Start 10/13/18 at 10:45; Stop 10/13/18 at 10:46; Status DC Insulin Detemir (Levemir Insulin) 35 units DAILY SC ; Start 10/14/18 at 09:00; Stop 10/14/18 at 09:00; Status DC Insulin Human Lispro (HumaLOG INSULIN) SEE PROTOCOL TABLE AC SC ; Start 10/13/18 at 17:30; Stop 10/13/18 at 17:49; Status DC Insulin Human Lispro (HumaLOG INSULIN) SEE PROTOCOL TABLE AC SC Last administered on 10/23/18at 17:09; Start 10/21/18 at 07:30 Insulin Human Lispro (HumaLOG INSULIN) SEE PROTOCOL TABLE Q6H SC Last administered on 10/21/18at 00:00; Start 10/13/18 at 18:00; Stop 10/21/18 at 06:40; Status DC Insulin Human Lispro (HumaLOG INSULIN) SEE PROTOCOL TABLE QHS SC ; Start 10/13/18 at 21:00; Stop 10/13/18 at 21:00; Status DC Insulin Human Lispro (HumaLOG INSULIN) SEE PROTOCOL TABLE QHS SC ; Start 10/21/18 at 21:00 Lactated Ringer's 1,000 ml @ 75 mls/hr [id number] IV ; Start 10/15/18 at 10:30; Stop 10/15/18 at 11:30; Status DC Lactated Ringer's 1,000 ml @ 100 mls/hr Q10H IV ; Start 10/14/18 at 09:15; Stop 10/14/18 at 10:15; Status DC Lactated Ringer's 1,000 ml @ 100 mls/hr Q10H IV ; Start 10/20/18 at 19:45; Stop 10/20/18 at 20:45; Status DC Levothyroxine Sodium (Synthroid) 125 mcg DAILY@0600 PO Last administered on 10/24/18 05:41; Start 10/14/18 at 06:00 Morphine Sulfate (Ms Contin) 15 mg QHS PO Last administered on 10/23/18 20:38; Start 10/13/18 at 21:00 Morphine Sulfate (Ms Contin) 30 mg DAILY PO Last administered on 10/23/18 09:02; Start 10/14/18 at 09:00 Octreotide Acetate 1200 mcg/ Sodium Chloride 240 ml @ 10 mls/hr Q24H IV Last administered on 10/23/18 12:13; Start 10/21/18 at 10:30 Omeprazole (PriLOSEC) 20 mg DAILY PO Last administered on 10/23/18 09:00; Start 10/16/18 at 09:00 Ondansetron HCl (ZOFRAN INJection) 4 mg Q4HP PRN IV NAUSEA OR VOMITING; Start 10/14/18 at 09:15; Stop 10/14/18 at 10:15; Status DC Ondansetron HCl (ZOFRAN INJection) 4 mg Q4HP PRN IV NAUSEA OR VOMITING; Start 10/15/18 at 10:30; Stop 10/15/18 at 11:30; Status DC Pantoprazole Sodium (Protonix) 40 mg BID IV Last administered on 10/14/18 20:29; Start 10/13/18 at 21:00; Stop 10/15/18 at 10:41; Status DC Simvastatin (Zocor) 10 mg QHS PO Last administered on 10/23/18 20:38; Start 10/13/18 at 21:00 Sodium Chloride 1,000 ml @ 100 mls/hr Q10H IV Last administered on 10/15/18at 12:47; Start 10/13/18 at 09:55; Stop 10/15/18 at 15:02; Status DC Sodium Chloride (Saline Lock Flush) 2 ml ASDIRECTED PRN IV SEE LABEL COMMENTS; Start 10/16/18 at 08:45 Sodium Chloride (Saline Lock Flush) 2 ml SLF IV Last administered on 10/24/18at 05:41; Start 10/16/18 at 14:00 Allergies Coded Allergies: Beta-Blockers (Beta-Adrenergic Bloc (Verified Allergy, Unknown, 09/13/18) spironolactone (Verified Allergy, Unknown, 09/13/18) warfarin (Verified Allergy, Unknown, 09/13/18) indomethacin (Verified Adverse Reaction, Intermediate, HALLUCINATIONS, 09/13/18) Objective Physical Examination Examination GENERAL APPEARANCE: Patient looks comfortable, hard of hearing but otherwise responds appropriately. SKIN: Warm and dry. HEENT:. Palpebral conjunctiva. No facial deformities or asymmetry. NECK: No jugular venous distention. LUNGS: Clear to auscultation bilaterally. No wheezing appreciated. HEART: Irregular rhythm, no murmurs. ABDOMEN: Abdomen is are also be flat, soft, nontender. . EXTREMITIES: Minimal lower extremity edema. Vital Signs Vital Signs Date Time Temp Pulse Resp B/P (MAP) Pulse Ox O2 Delivery O2 Flow Rate FiO2 10/24/18 04:00 97.3 56 18 101/52 (68) 96 I&Os I&O- Last 24 Hours up to 6 AM 10/24/18 06:00 Intake Total 720 ml Output Total 2875 ml Balance -2155 ml Laboratory Data Labs 24H Laboratory Tests 2 10/23/18 11:51: Bedside Glucose (Misc Panel) 143H 10/23/18 16:52: Bedside Glucose (Misc Panel) 132H 10/23/18 20:42: Bedside Glucose (Misc Panel) 159H 10/24/18 06:38: Bedside Glucose (Misc Panel) 140H CBC/BMP Laboratory Tests 10/23/18 08:05 10/23/18 13:40 10/23/18 21:33 10/24/18 02:36 Impression Persistent, recurrent lower GI bleed requiring multiple blood transfusions Patient is for bleeding scan today The issue is with regards to the surgical management of the patient with recurrent Late has been fully discussed with the patient and documented by Dr. Harris. If we are able to localize the location of bleeding we can plan for segmental resection (laparoscopic or open) and planned for making an enterocolic anastomosis. If we are not able to localize the bleeding, then we are committed to performing a subtotal colectomy. The other issue with this is we should anastomose or leave an ileostomy. If there is a chance that the source of the bleeding is in the small bowel then it is preferred to leave an ileostomy: 1. For access to the small bowel and 2. to localize and identify source of bleeding (rectum or small bowel) if he rebleeds postoperatively despite the colectomy. The other issue is whether he would be better off given his current state of health and ambulation/activity with an ileostomy or an ileal rectal anastomosis which may give him frequent bowel movements even diarrhea with fecal urgency. I will come back again in today to review the results of the bleeding scan with the patient. He will be scheduled for surgery tomorrow. Addendum. He had a bleeding scan performed today and this returned positive for gastrointestinal bleeding studies suggestive of proximal small bowel bleeding source. I communicated this to the patient. At the time that I returned her sister I believe was the bedside with him. I have called on Dr. Morales to inform them of the findings of positive bleeding study and inquired whether he was able to cannulate the superior mesenteric artery. He told me that he did but he did not cannulate the celiac artery which could be a possible source of the bleed so he will schedule him tonight for a repeat mesenteric angiogram to see if he can find the bleeding at the source. If this works well in good and hopefully this will stop and not recur or cause any bowel ischemia. I discussed with him other options which includes small bowel enteroscopy push enteroscopy. I inquired Dr. Mariee whether this is possible in our institution. We did not have the appropriate endoscopic equipment and none of our lien searcher performs push enteroscopy here. I communicated this with Dr. Castle and suggested possibility of need to transfer the patient if the bleeding was not controlled with the mesenteric angiogram possibly embolization. Last option theoretical he surgery with intermittent enterotomies and performance of endoscopies to locate the bleeding source. Ms. Cross theoretical and the nature and probably difficult to perform. I did not perform this myself. Patient was somewhat inquiring about whether he should choose to go on comfort measures only and all the lap and if he chooses not to have any aggressive intervention or any further blood transfusion and explained that this might be terminal if this continues to bleed but it is his choice as it is his body so long as he is aware of the consequences of his decision, that it is his to make. Plan / VTE VTE Prophylaxis Ordered?: No VTE Exclusion Pharmacological: Active Bleeding DENI NAILS MD October 24, 2018 07:57
[2018-10-24] MEDS: MORPHINE 30 MG SA TAB PO SCH (08:47)
[2018-10-24] MEDS: DRONEDARONE 400 MG TAB (MULTAQ) PO SCH ×2 (08:48→21:27)
[2018-10-24] MEDS: FOLIC ACID 1 MG TAB PO SCH (08:48)
[2018-10-24] MEDS: FEXOFENADINE 60 MG TAB PO SCH (08:48)
[2018-10-24] MEDS: OMEPRAZOLE 20 MG CAP PO SCH (08:48)
[2018-10-24] MEDS: DIGOXIN 0.125 MG TAB PO SCH (08:49)
[2018-10-24] MEDS: HumaLOG INSULIN (NovoLOG) PER UNIT SC SCH ×4 (08:50→20:04)
[2018-10-24 09:55] LABS: HEMATOCRIT 25.9 % (42.0-52.0); HEMOGLOBIN 8.7 g/dl (13.5-17.5)
[2018-10-24] MEDS: OCTREOTIDE ACETATE 1,200 MCG in NS 238.8 ML IV SCH (11:00)
--- NOTE | 2018-10-24 11:01 | IPNPDOC ---
Subjective Date Seen The patient was seen on 10/24/18. Subjective Chief Complaint/HPI Patient was explained about about surgery tomorrow morning after the bleeding. His skin is done today. He understood very well and agrees for the procedure General: Denies: ROS Unobtainable, Chills, Night Sweats, Fatigue, Malaise, Normal Appetite, Other Symptoms Constitutional: Denies: Chills, Fever, Malaise, Night Sweats, Weakness, Fatigue, Weight Loss, Lethargy, Other Eyes: Denies: Pain, Vision change, Conjunctivae inflammation, Eyelid inflammation, Redness, Other ENT: Denies: Head Aches, Ear Pain, Dysphagia, Sinus Congestion, Post Nasal Drip, Sore Throat, Epistaxis, Other Symptoms Skin: Denies: Rash, Lesions, Jaundice, Bruising, Itching, Dry, Breakdown, Nail Changes, Other Pulmonary: Denies: Dyspnea, Cough, Pleuritic Chest Pain, Other Symptoms Cardiovascular: Denies: Chest Pain, Palpitations, Orthopnea, Paroxysmal Noc. Dyspnea, Edema, Lt Headedness, Other Symptoms Gastrointestinal: Denies: Nausea, Vomiting, Abdominal Pain, Diarrhea, Constipation, Melena, Hematochezia, Other Symptoms Genitourinary: Denies: Dysuria, Frequency, Incontinence, Hematuria, Retention, Other Symptoms Hematologic: Denies: Bruising, Bleeding Excessively, Petecchia, Purpura, Enlarged Lymph Nodes, Other Hematologic Endocrine: Denies: Polydipsia, Polyphagia, Polyuria, Heat Intolerance, Cold Intolerance, Other Endocrine Sx Musculoskeletal: Denies: Neck Pain, Back Pain, Shoulder Pain, Arm Pain, Hand Pain, Leg Pain, Foot Pain, Joint Pain, Muscle Pain, Spasms, Other Symptoms Neurological: Denies: Weakness, Numbness, Incoordination, Change in speech, Confusion, Seizures, Other Symptoms Psych: Denies: Mood Normal, Anxiety, Depression, Memory Issues, Thoughts of Self Harm, Anger, Thoughts of Harming Other, Other Psych Objective Physical Examination General Exam: Positive: Alert, Cooperative Eye Exam: Positive: PERRLA ENT Exam: Positive: Atraumatic, Mucous membr. moist/pink Chest Exam: Positive: Clear to auscultation Heart Exam: Positive: Rate Normal, Normal S1, Normal S2 Abdomen Exam: Positive: Normal bowel sounds, Soft Extremity Exam: Positive: Normal pulses Skin Exam: Positive: Nl turgor and temperature Neuro Exam: Positive: Normal Gait, Normal Speech Psych Exam: Positive: Mental status NL, Mood NL, Oriented x 3 Assessment /Plan Problems (1) GI bleed Status: Acute Problem Text: 1. Acute Blood Loss Anemia 2/2 Upper vs Lower GI bleed -Patient has received 2 colonoscopies and a mesenteric angiogram without success in locating the patients source of bleeding. GI had taken the patient yesterday for his second colonoscopy and was once again unable to locate a source. In the previous colonoscopy a mucosal spot was identified and clips were placed in what was believed to be the splenic flexure. On repeat this appeared to be at the hepatic flexure. The patient continues to bleed and receive transfusions as needed. He has currently received 16 transfusion since admission and will receive a total of 17 by the end of today. Surgical consult has been placed and they have seen the patient. Unfortunately the patient is a very poor surgical candidate and he may not survive a major abdominal surgery. At this point in time we have no discernible source of bleeding which would indicate the patient would need a subtotal colectomy. However, even though a lower GI source of bleeding is suspected we can not be certain and the patient may continue to bleed regardless of procedure. -GI consultation has been placed and are following. Recommendations and assistance in care is greatly appreciated. -Surgical consult has been placed and patient has been evaluated. Their recommendations and assistance is greatly appreciated. -Patient will be placed on an Octreotide drip in hopes to stop the bleeding. A KUB abdomen has been ordered to assess whether the clips placed during the patients colonoscopy were at the splenic or hepatic flexure. -Patient may benefit from a Nuclear Medicine RBC tagged scan. Unfortuneately, this can not be completed today. If he continues to bleed without an identified source then the patient may need to be transferred Followed by Dr. Whiting the was noted. Patient is scheduled for surgery tomorrow He will get bleedingscan done today to localize the bleeding area Follow H&H and transfuse as needed 2. Atrial Fibrillation -Patient has a history of atrial fibrillation. -Continue Digoxin and Multaq. He remains rate controlled -Currently holding Eliquis due to GI bleed. Will likely not resume anticoagulation upon discharge as patient has a significant GI bleed with ongoing blood loss. 3. IDDM -Patient is currently NPO. -Sliding Scale insulin Q6H fingersticks -Will resume home basal coverage 35 units of levemir once patient begins diet 4. Chronic Lower Back Pain -MS Cotin 30mg daily PO and 15mg QHS 5. Hypothyroidism -Continue Synthroid 6. Seasonal Allergies -Continue Melinda 7. DVT prophylaxis -Mechanical prophylaxis with TEDs and Sequentials Plan/VTE VTE Prophylaxis Ordered?: No VTE Exclusion Pharmacological: Active Bleeding VS, I&O, 24H, Fishbone Vital Signs/I&O Vital Signs Date Time Temp Pulse Resp B/P (MAP) Pulse Ox O2 Delivery O2 Flow Rate FiO2 10/24/18 08:49 64 10/24/18 08:47 18 10/24/18 08:00 99.2 125/56 (79) 100 I&O- Last 24 Hours up to 6 AM 10/24/18 06:00 Intake Total 720 ml Output Total 2875 ml Balance -2155 ml Laboratory Data 24H LABS Laboratory Tests 2 10/23/18 11:51: Bedside Glucose (Misc Panel) 143H 10/23/18 16:52: Bedside Glucose (Misc Panel) 132H 10/23/18 20:42: Bedside Glucose (Misc Panel) 159H 10/24/18 06:38: Bedside Glucose (Misc Panel) 140H CBC/BMP Laboratory Tests 10/23/18 13:40 10/23/18 21:33 10/24/18 02:36 10/24/18 09:45 ELDON ELMORE MD October 24, 2018 11:01
[2018-10-24] MEDS: ACETAMINOPHEN TAB 650MG DOSE (2X325MG) PO PRN (13:23)
[2018-10-24 14:09] LABS: HEMATOCRIT 28.1 % (42.0-52.0); HEMOGLOBIN 9.4 g/dl (13.5-17.5)
--- NOTE | 2018-10-24 14:45 | REP ---
TECHNETIUM 99M RBC GI BLEEDING SCINTIGRAPHY: HISTORY: GI bleeding. Comparison CT study is from October 13, 2018. TECHNIQUE: 25.5 mCi technetium 99m UltraTag RBC agent is administered and sequential anterior flow and 5-minute abdominal and pelvic images are acquired. SCINTIGRAPHIC FINDINGS: The initial flow study is unremarkable. There is a focus of increased uptake corresponding to the patient's known small infrarenal abdominal aortic aneurysm. On the 15-minute sequential 5-minute image, there is a focus of uptake to the right of midline in the central abdomen. On the next 5-minute image, there is an obliquely linear pattern of uptake in the left periaortic region. Subsequent 5-minute images demonstrate both left and right curvilinear gastrointestinal uptake in a pattern suggestive of small intestine. Question mid duodenal or proximal jejunal source. The transverse colon is at this level in the abdomen but has a more linear trajectory on this patient's recent CT study. IMPRESSION: Positive gastrointestinal bleeding study. Pattern suggestive of proximal small intestine bleeding source. Electronically Signed by Barak Perkins MD 10/24/2018 04:15 P
[2018-10-24] MEDS ORDERED: diphenhydrAMINE INJ 50MG/ML VIAL (J1200) As Ordered ONE (16:11)
[2018-10-24] MEDS ORDERED: HEPARIN 1,000 UNITS/ML 10ML VIAL (FOR RADIOLOGY& DIALYSIS ONLY) As Ordered ONE (16:11)
[2018-10-24] MEDS ORDERED: BUPIVACAINE HCL 0.5% 10 ML VIAL As Ordered ONE (16:11)
[2018-10-24] MEDS ORDERED: LIDOCAINE 2% MDV 20 ML VIAL As Ordered ONE (16:12)
[2018-10-24] MEDS ORDERED: ISOVUE-300 61% 50ML VIAL (Q9967) As Ordered ONE (16:12)
[2018-10-24 16:27] LABS: BLOOD UREA NITROGEN 10 MG/DL (7-18); CALCIUM LEVEL 6.9 MG/DL (8.8-10.2); CARBON DIOXIDE LEVEL 25 MEQ/L (21-32); CHLORIDE LEVEL 107 MEQ/L (98-107); CREATININE FOR GFR 1.12 MG/DL (0.70-1.30); GLOMERULAR FILTRATION RATE > 60.0 (>35); GLUCOSE, FASTING 165 MG/DL (70-100); POTASSIUM SERUM 4.1 MEQ/L (3.5-5.1); SODIUM LEVEL 138 MEQ/L (136-145)
[2018-10-24] MEDS ORDERED: MIDAZOLAM INJ 2 MG/2 ML VIAL (J2250) As Ordered ONE (16:41)
[2018-10-24] MEDS ORDERED: fentaNYL 100 MCG/2 ML INJECTION (J3010) As Ordered ONE (16:41)
[2018-10-24] MEDS ORDERED: PROTAMINE SULF INJ 50 MG/5 ML VIAL (J2720) As Ordered ONE (18:17)
[2018-10-24] MEDS ORDERED: NS 0.45% 1,000 ML IV SCH (19:30)
[2018-10-24] MEDS: MORPHINE 15 MG SA TAB PO SCH (21:23)
[2018-10-24] MEDS: SIMVASTATIN 10 MG TAB PO SCH (21:24)
[2018-10-25] VITALS (9 sets, daily range): BP systolic 85–112; BP diastolic 46–56
[2018-10-25] MEDS: SLF 3 ML SYR IV SCH ×3 (05:12→21:10)
[2018-10-25] MEDS: LEVOTHYROXINE 125MCG TABLET (0.125MG) PO SCH (05:36)
[2018-10-25 05:53] LABS: HEMATOCRIT 23.3 % (42.0-52.0); HEMOGLOBIN 7.8 g/dl (13.5-17.5); MEAN CORPUSCULAR HEMOGLOBIN 30.7 pg (27.0-33.0); MEAN CORPUSCULAR HGB CONC 33.5 g/dl (32.0-36.5); MEAN CORPUSCULAR VOLUME 91.7 fl (80.0-96.0); PLATELET COUNT, AUTOMATED 151 10^3/uL (150-450); RED BLOOD COUNT 2.54 10^6/uL (4.30-6.10); WHITE BLOOD COUNT 10.3 10^3/uL (4.0-10.0)
[2018-10-25 06:17] LABS: BLOOD UREA NITROGEN 8 MG/DL (7-18); CALCIUM LEVEL 7.4 MG/DL (8.8-10.2); CARBON DIOXIDE LEVEL 26 MEQ/L (21-32); CHLORIDE LEVEL 110 MEQ/L (98-107); CREATININE FOR GFR 1.02 MG/DL (0.70-1.30); GLOMERULAR FILTRATION RATE > 60.0 (>35); GLUCOSE, FASTING 129 MG/DL (70-100); SODIUM LEVEL 140 MEQ/L (136-145)
[2018-10-25] MEDS: DIGOXIN 0.125 MG TAB PO SCH (09:11)
[2018-10-25] MEDS: FEXOFENADINE 60 MG TAB PO SCH (09:11)
[2018-10-25] MEDS: OMEPRAZOLE 20 MG CAP PO SCH (09:11)
[2018-10-25] MEDS: FOLIC ACID 1 MG TAB PO SCH (09:11)
[2018-10-25] MEDS: DRONEDARONE 400 MG TAB (MULTAQ) PO SCH ×2 (09:11→17:49)
[2018-10-25] MEDS: MORPHINE 30 MG SA TAB PO SCH (09:12)
[2018-10-25] MEDS: HumaLOG INSULIN (NovoLOG) PER UNIT SC SCH ×4 (09:13→21:00)
[2018-10-25] MEDS: OCTREOTIDE ACETATE 1,200 MCG in NS 238.8 ML IV SCH ×2 (10:17→10:21)
--- NOTE | 2018-10-25 10:59 | IPNPDOC ---
Subjective Date Seen The patient was seen on 10/25/18. Subjective Chief Complaint/HPI Patient feels much better. No further BMs General: Denies: ROS Unobtainable, Chills, Night Sweats, Fatigue, Malaise, Normal Appetite, Other Symptoms Constitutional: Denies: Chills, Fever, Malaise, Night Sweats, Weakness, Fatigue, Weight Loss, Lethargy, Other Eyes: Denies: Pain, Vision change, Conjunctivae inflammation, Eyelid inflammation, Redness, Other ENT: Denies: Head Aches, Ear Pain, Dysphagia, Sinus Congestion, Post Nasal Drip, Sore Throat, Epistaxis, Other Symptoms Skin: Denies: Rash, Lesions, Jaundice, Bruising, Itching, Dry, Breakdown, Nail Changes, Other Pulmonary: Denies: Dyspnea, Cough, Pleuritic Chest Pain, Other Symptoms Cardiovascular: Denies: Chest Pain, Palpitations, Orthopnea, Paroxysmal Noc. Dyspnea, Edema, Lt Headedness, Other Symptoms Gastrointestinal: Denies: Nausea, Vomiting, Abdominal Pain, Diarrhea, Constipation, Melena, Hematochezia, Other Symptoms Genitourinary: Denies: Dysuria, Frequency, Incontinence, Hematuria, Retention, Other Symptoms Hematologic: Denies: Bruising, Bleeding Excessively, Petecchia, Purpura, Enlarged Lymph Nodes, Other Hematologic Endocrine: Denies: Polydipsia, Polyphagia, Polyuria, Heat Intolerance, Cold Intolerance, Other Endocrine Sx Musculoskeletal: Denies: Neck Pain, Back Pain, Shoulder Pain, Arm Pain, Hand Pa in, Leg Pain, Foot Pain, Joint Pain, Muscle Pain, Spasms, Other Symptoms Neurological: Denies: Weakness, Numbness, Incoordination, Change in speech, Confusion, Seizures, Other Symptoms Psych: Denies: Mood Normal, Anxiety, Depression, Memory Issues, Thoughts of Self Harm, Anger, Thoughts of Harming Other, Other Psych Objective Physical Examination General Exam: Positive: Alert, Cooperative Eye Exam: Positive: PERRLA ENT Exam: Positive: Atraumatic, Mucous membr. moist/pink Chest Exam: Positive: Clear to auscultation Heart Exam: Positive: Rate Normal, Normal S1, Normal S2 Abdomen Exam: Positive: Normal bowel sounds, Soft Extremity Exam: Positive: Normal pulses Skin Exam: Positive: Nl turgor and temperature Neuro Exam: Positive: Normal Gait, Normal Speech Psych Exam: Positive: Mental status NL, Mood NL, Oriented x 3 Assessment /Plan Problems (1) GI bleed Status: Acute Problem Text: 1. Acute Blood Loss Anemia 2/2 Upper vs Lower GI bleed -Patient has received 2 colonoscopies and a mesenteric angiogram without success in locating the patients source of bleeding. GI had taken the patient yesterday for his second colonoscopy and was once again unable to locate a source. In the previous colonoscopy a mucosal spot was identified and clips were placed in what was believed to be the splenic flexure. On repeat this appeared to be at the hepatic flexure. The patient continues to bleed and receive transfusions as needed. He has currently received 16 transfusion since admission and will receive a total of 17 by the end of today. Surgical consult has been placed and they have seen the patient. Unfortunately the patient is a very poor surgical candidate and he may not survive a major abdominal surgery. At this point in time we have no discernible source of bleeding which would indicate the patient would need a subtotal colectomy. However, even though a lower GI source of bleeding is suspected we can not be certain and the patient may continue to bleed regardless of procedure. Patient hadn't rbc scan done which showed a source to be proximal ileum are mid part of the duodenum I had spoken with Dr. better. Staton and he had recommended transfer to tertiary care facility for possible enteroscopy , But patient patient had angiogram done by Dr. Morales and the bleeding from the duodenal gastric artery was noted and was plugged and bleeding was stopped Will monitor patient's H&H and remains stable, then he doesn't need to be transferred Will progress patient's diet and activity as tolerated , Transfuse blood as needed 2. Atrial Fibrillation -Patient has a history of atrial fibrillation. -Continue Digoxin and Multaq. He remains rate controlled -Currently holding Eliquis due to GI bleed. Will likely not resume anticoagulation upon discharge as patient has a significant GI bleed with ongoing blood loss. 3. IDDM -Patient is currently NPO. -Sliding Scale insulin Q6H fingersticks -Will resume home basal coverage 35 units of levemir once patient begins diet 4. Chronic Lower Back Pain -MS Cotin 30mg daily PO and 15mg QHS 5. Hypothyroidism -Continue Synthroid 6. Seasonal Allergies -Continue Melinda 7. DVT prophylaxis -Mechanical prophylaxis with TEDs and Sequentials Plan/VTE VTE Prophylaxis Ordered?: No VTE Exclusion Pharmacological: Active Bleeding VS, I&O, 24H, Fishbone Vital Signs/I&O Vital Signs Date Time Temp Pulse Resp B/P (MAP) Pulse Ox O2 Delivery O2 Flow Rate FiO2 10/25/18 09:12 18 99 10/25/18 09:11 63 10/25/18 07:43 98.8 94/48 (63) I&O- Last 24 Hours up to 6 AM 10/25/18 06:00 Intake Total 2010 ml Output Total 2150 ml Balance -140 ml Laboratory Data 24H LABS Laboratory Tests 2 10/24/18 13:27: Bedside Glucose (Misc Panel) 143H 10/24/18 15:49: Anion Gap 6L, Glomerular Filtration Rate > 60.0, Blood Urea Nitrogen 10, Creatinine 1.12, Sodium Level 138, Potassium Level 4.1, Chloride Level 107, Carbon Dioxide Level 25, Calcium Level 6.9L 10/24/18 19:53: Bedside Glucose (Misc Panel) 120H 10/25/18 05:32: Anion Gap 4L, Glomerular Filtration Rate > 60.0, Blood Urea Nitrogen 8, Creatinine 1.02, Sodium Level 140, Potassium Level 4.0, Chloride Level 110H, Carbon Dioxide Level 26, Calcium Level 7.4L, Nucleated Red Blood Cells % (auto) 0.0 CBC/BMP Laboratory Tests 10/24/18 13:50 10/24/18 15:49 Calcium Level 6.9 L 10/25/18 05:32 Calcium Level 7.4 L, Red Blood Count 2.54 L, Mean Corpuscular Volume 91.7, Mean Corpuscular Hemoglobin 30.7, Mean Corpuscular Hemoglobin Concent 33.5, Red Cell Distribution Width 16.1 H ELDON ELMORE MD October 25, 2018 10:59
--- NOTE | 2018-10-25 11:37 | IPNPDOC ---
Date Seen The patient was seen on 10/25/18. Progress Note Vascular Surgery: Dr. Morales HPI: 82year oldM admitted since 10/13/18 related to GI bleed receiving total of 21 units of PRBC since admission. Vascular surgery was consulted regarding GI Bleeding with initial angiogram 10/18/18 with no obvious source of bleeding identified. Vascular surgery was requested to reassess 10/24/18 with follow-up angiogram completed 10/24/[address] Morales with coil embolization of gastroduodenal artery. This a.m. the patient reports he is tolerating clear fluids. He denies any abdominal pain, nausea, vomiting. Denies any bloody bowel movements. Denies any fevers, chills, weakness, fatigue, Headache, Chest Pain, Shortness of breath, cough, palpitations, abdominal pain, N/V/D or changes in bowel or bladder habits. PAST MEDICAL HISTORY: HFpEF (LVEF 60-65%) 05/2018 COPD REBEKAH on CPAP GERD Gout Paroxysmal Atrial Fibrillation BPH PAST SURGICAL HISTORY: TURP ESWL left arm PE: GEN: 82yoM, appears pale. Alert and oriented x 3. HEENT: Normocephalic, atraumatic.Sclera are nonicteric. Conjunctiva without injection. No facial asymmetry. Moist mucous membranes. CHEST: Regular rate and rhythm, +S1, +S2 LUNGS: Clear to auscultation bilaterally. ABD: Round, soft, non-tender, non-distended. +Bowel sounds throughout. No rebound or guarding. No costovertebral angle tenderness. EXT: Pulses palpable bilaterally LEs. No lower extremity edema appreciated. SKIN: [place], dry, warm. No rashes. NEURO: Alert and oriented x 3. Cranial nerves III-XII are intact. No focal deficits appreciated. A&P: 82year oldM admitted since 10/13/18 related to GI bleed receiving total of 21 units of PRBC since admission. Vascular surgery was consulted regarding GI Bleeding with initial angiogram 10/18/18 with no obvious source of bleeding identified. Vascular surgery was requested to reassess 10/24/18 with follow-up angiogram completed 10/24/[address] Morales with coil embolization of gastroduodenal artery. 1. Acute Blood Loss Anemia 2/2 GI bleed. Angiogram completed 10/24/[address] Morales with coil embolization of gastroduodenal artery. Hemoglobin is noted to be 7.8 this morning. Transfusion as per hospitalist. ASA/Eliquis on Hold. Continue to closely monitor. 2. PAF. Eliquis/ASA 81mg on Hold DVT prophylaxis. Eliquis on hold. SCD/TEDS. VS, I&O, 24H, Fishbone Vital Signs/I&O Vital Signs Date Time Temp Pulse Resp B/P (MAP) Pulse Ox O2 Delivery O2 Flow Rate FiO2 10/25/18 09:12 18 99 10/25/18 09:11 63 10/25/18 07:43 98.8 94/48 (63) I&O- Last 24 Hours up to 6 AM 10/25/18 06:00 Intake Total 2010 ml Output Total 2150 ml Balance -140 ml Laboratory Data 24H LABS Laboratory Tests 2 10/24/18 13:27: Bedside Glucose (Misc Panel) 143H 10/24/18 15:49: Anion Gap 6L, Glomerular Filtration Rate > 60.0, Blood Urea Nitrogen 10, Creatinine 1.12, Sodium Level 138, Potassium Level 4.1, Chloride Level 107, Carbon Dioxide Level 25, Calcium Level 6.9L 10/24/18 19:53: Bedside Glucose (Misc Panel) 120H 10/25/18 05:32: Anion Gap 4L, Glomerular Filtration Rate > 60.0, Blood Urea Nitrogen 8, Creatinine 1.02, Sodium Level 140, Potassium Level 4.0, Chloride Level 110H, Carbon Dioxide Level 26, Calcium Level 7.4L, Nucleated Red Blood Cells % (auto) 0.0 CBC/BMP Laboratory Tests 10/24/18 13:50 10/24/18 15:49 Calcium Level 6.9 L 10/25/18 05:32 Calcium Level 7.4 L, Red Blood Count 2.54 L, Mean Corpuscular Volume 91.7, Mean Corpuscular Hemoglobin 30.7, Mean Corpuscular Hemoglobin Concent 33.5, Red Cell Distribution Width 16.1 H Giovanna Batista October 25, 2018 11:37
[2018-10-25 19:05] LABS: HEMATOCRIT 27.2 % (42.0-52.0); HEMOGLOBIN 9.1 g/dl (13.5-17.5); MEAN CORPUSCULAR HEMOGLOBIN 30.6 pg (27.0-33.0); MEAN CORPUSCULAR HGB CONC 33.5 g/dl (32.0-36.5); MEAN CORPUSCULAR VOLUME 91.6 fl (80.0-96.0); PLATELET COUNT, AUTOMATED 149 10^3/uL (150-450); RED BLOOD COUNT 2.97 10^6/uL (4.30-6.10); WHITE BLOOD COUNT 12.9 10^3/uL (4.0-10.0)
[2018-10-25] MEDS: MORPHINE 15 MG SA TAB PO SCH (21:08)
[2018-10-25] MEDS: SIMVASTATIN 10 MG TAB PO SCH (21:09)
[2018-10-26 04:00] VITALS: BP 96/52
[2018-10-26] MEDS: ACETAMINOPHEN TAB 650MG DOSE (2X325MG) PO PRN ×2 (04:14→20:53)
[2018-10-26 05:31] LABS: HEMATOCRIT 26.1 % (42.0-52.0); HEMOGLOBIN 8.7 g/dl (13.5-17.5); MEAN CORPUSCULAR HEMOGLOBIN 31.3 pg (27.0-33.0); MEAN CORPUSCULAR HGB CONC 33.3 g/dl (32.0-36.5); MEAN CORPUSCULAR VOLUME 93.9 fl (80.0-96.0); PLATELET COUNT, AUTOMATED 134 10^3/uL (150-450); RED BLOOD COUNT 2.78 10^6/uL (4.30-6.10); WHITE BLOOD COUNT 10.6 10^3/uL (4.0-10.0)
[2018-10-26] MEDS: LEVOTHYROXINE 125MCG TABLET (0.125MG) PO SCH (05:32)
[2018-10-26] MEDS: SLF 3 ML SYR IV SCH ×3 (05:32→20:22)
[2018-10-26 05:55] LABS: ALBUMIN 1.7 GM/DL (3.2-5.2); ALT/SGPT < 6 U/L (12-78); BLOOD UREA NITROGEN 11 MG/DL (7-18); CALCIUM LEVEL 7.6 MG/DL (8.8-10.2); CARBON DIOXIDE LEVEL 24 MEQ/L (21-32); CHLORIDE LEVEL 109 MEQ/L (98-107); CREATININE FOR GFR 1.09 MG/DL (0.70-1.30); GLOMERULAR FILTRATION RATE > 60.0 (>35); GLUCOSE, FASTING 116 MG/DL (70-100); SODIUM LEVEL 139 MEQ/L (136-145); TOTAL PROTEIN 4.6 GM/DL (6.4-8.2)
[2018-10-26 08:00] VITALS: BP 103/54
[2018-10-26] MEDS: OMEPRAZOLE 20 MG CAP PO SCH (08:53)
[2018-10-26] MEDS: DRONEDARONE 400 MG TAB (MULTAQ) PO SCH ×2 (08:53→17:08)
[2018-10-26] MEDS: FOLIC ACID 1 MG TAB PO SCH (08:53)
[2018-10-26] MEDS: DIGOXIN 0.125 MG TAB PO SCH (08:53)
[2018-10-26] MEDS: MORPHINE 30 MG SA TAB PO SCH (08:54)
[2018-10-26] MEDS: FEXOFENADINE 60 MG TAB PO SCH (08:54)
[2018-10-26] MEDS: HumaLOG INSULIN (NovoLOG) PER UNIT SC SCH ×4 (08:55→20:46)
--- NOTE | 2018-10-26 09:00 | IPNPDOC ---
Date Seen The patient was seen on 10/26/18. Progress Note Vascular Surgery: Dr. Morales HPI: 82year oldM admitted since 10/13/18 related to GI bleed receiving total of 21 units of PRBC since admission. Vascular surgery was consulted regarding GI Bleeding with initial angiogram 10/18/18 with no obvious source of bleeding identified. Vascular surgery was requested to reassess 10/24/18 with follow-up angiogram completed 10/24/[address] Morales with coil embolization of gastroduodenal artery. This a.m. the patient reports he has been tolerating po. Is advanced to soft diet. He denies any abdominal pain, nausea, vomiting. 3 BM 10/25, 2 BM 10/26/18 the pt states dark in color. Denies any BRB. Denies any fevers, chills, weakness, fatigue, Headache, Chest Pain, Shortness of breath, cough, palpitations, abdominal pain, N/V/D or changes in bowel or bl adder habits. PAST MEDICAL HISTORY: HFpEF (LVEF 60-65%) 05/2018 COPD REBEKAH on CPAP GERD Gout Paroxysmal Atrial Fibrillation BPH PAST SURGICAL HISTORY: TURP ESWL left arm PE: GEN: 82yoM, appears pale. Alert and oriented x 3. HEENT: Normocephalic, atraumatic.Sclera are nonicteric. Conjunctiva without injection. No facial asymmetry. Moist mucous membranes. CHEST: Regular rate and rhythm, +S1, +S2 LUNGS: Clear to auscultation bilaterally. ABD: Round, soft, non-tender, non-distended. +Bowel sounds throughout. No rebound or guarding. No costovertebral angle tenderness. EXT: Pulses palpable bilaterally LEs. No lower extremity edema appreciated. SKIN: [place], dry, warm. No rashes. NEURO: Alert and oriented x 3. Cranial nerves III-XII are intact. No focal deficits appreciated. A&P: 82year oldM admitted since 10/13/18 related to GI bleed receiving total of 21 units of PRBC since admission. Vascular surgery was consulted regarding GI Bleeding with initial angiogram 10/18/18 with no obvious source of bleeding identified. Vascular surgery was requested to reassess 10/24/18 with follow-up angiogram completed 10/24/[address] Morales with coil embolization of radha roduodenal artery. 1. Acute Blood Loss Anemia 2/2 GI bleed. Angiogram completed 10/24/[address] Morales with coil embolization of gastroduodenal artery. SCr 1.09. Hemoglobin is noted to be 8.7 this morning from 9.1 last PM. ASA/Eliquis on Hold. Continue to closely monitor. Could consider repeat mesenteric angiogram if needed. Would recommend PPI BID, Carafate AC/HS. 2. PAF. Eliquis/ASA 81mg on Hold DVT prophylaxis. Eliquis on hold. SCD/TEDS. VS, I&O, 24H, Fishbone Vital Signs/I&O Vital Signs Date Time Temp Pulse Resp B/P (MAP) Pulse Ox O2 Delivery O2 Flow Rate FiO2 10/26/18 08:54 18 96 10/26/18 08:53 57 10/26/18 08:00 98.1 103/54 (70) I&O- Last 24 Hours up to 6 AM 10/26/18 06:00 Intake Total 2034 ml Output Total 1390 ml Balance 644 ml Laboratory Data 24H LABS Laboratory Tests 2 10/25/18 11:48: Bedside Glucose (Misc Panel) 103 10/25/18 17:08: Bedside Glucose (Misc Panel) 102 10/25/18 18:53: Nucleated Red Blood Cells % (auto) 0.0 10/25/18 19:36: Lab Scanned Report Transfusion Record 10/25/18 20:15: Bedside Glucose (Misc Panel) 167H 10/26/18 05:15: Nucleated Red Blood Cells % (auto) 0.0, Anion Gap 6L, Glomerular Filtration Rate > 60.0, Blood Urea Nitrogen 11, Creatinine 1.09, Sodium Level 139, Potassium Level 4.0, Chloride Level 109H, Carbon Dioxide Level 24, Calcium Level 7.6L, Aspartate Amino Transf (AST/SGOT) 20, Alanine Aminotransferase (ALT/SGPT) < 6L, Alkaline Phosphatase 39L, Total Bilirubin 1.0, Total Protein 4.6L, Albumin 1.7L, Albumin/Globulin Ratio 0.59L CBC/BMP Laboratory Tests 10/25/18 18:53 Red Blood Count 2.97 L, Mean Corpuscular Volume 91.6, Mean Corpuscular Hemoglobin 30.6, Mean Corpuscular Hemoglobin Concent 33.5, Red Cell Distribution Width 15.6 H 10/26/18 05:15 Red Blood Count 2.78 L, Mean Corpuscular Volume 93.9, Mean Corpuscular Hemoglobin 31.3, Mean Corpuscular Hemoglobin Concent 33.3, Red Cell Distribution Width 15.5 H, Calcium Level 7.6 L, Aspartate Amino Transf (AST/SGOT) 20, Alanine Aminotransferase (ALT/SGPT) < 6 L, Alkaline Phosphatase 39 L, Total Bilirubin 1.0, Total Protein 4.6 L, Albumin 1.7 L Giovanna Batista October 26, 2018 09:00
--- NOTE | 2018-10-26 09:40 | IPNPDOC ---
Text Note Date of Service The patient was seen on 10/26/18. NOTE I checked up on the patient is morning. He appears to be doing well. He still has intermittent passage of bloody stools though he reports that the last bowel movement was more solid even though it is bloody-appearing. He received an additional 1 unit packed RBC transfusion yesterday. His hemoglobin and hematocrit seems to have held up. Last hemoglobin of 8.7, hematocrit of 26.1. Impression and plan Lower GI bleeding This was localized in the proximal small bowel on the bleeding scan. He had mesenteric angiogram and a bleeder was localized to the branch of the gastroduo denal artery which was embolized. Continue with close monitoring for now. If there is no evidence of gross bleeding, I suggest holding off on further transfusion based numbers. Suggest starting him on iron supplements. If bleeding persists, suggest transferring though higher-level Center for consideration for small bowel enteroscopy We'll sign off for now. VS,Fishbone, I+O VS, Fishbone, I+O Laboratory Tests 10/25/18 18:53 Red Blood Count 2.97 L, Mean Corpuscular Volume 91.6, Mean Corpuscular Hemoglobin 30.6, Mean Corpuscular Hemoglobin Concent 33.5, Red Cell Distribution Width 15.6 H 10/26/18 05:15 Red Blood Count 2.78 L, Mean Corpuscular Volume 93.9, Mean Corpuscular Hemoglobin 31.3, Mean Corpuscular Hemoglobin Concent 33.3, Red Cell Distribution Width 15.5 H, Calcium Level 7.6 L, Aspartate Amino Transf (AST/SGOT) 20, Alanine Aminotransferase (ALT/SGPT) < 6 L, Alkaline Phosphatase 39 L, Total Bilirubin 1.0, Total Protein 4.6 L, Albumin 1.7 L Vital Signs Date Time Temp Pulse Resp B/P (MAP) Pulse Ox O2 Delivery O2 Flow Rate FiO2 10/26/18 08:54 18 96 10/26/18 08:53 57 10/26/18 08:00 98.1 103/54 (70) I&O- Last 24 Hours up to 6 AM 10/26/18 06:00 Intake Total 2034 ml Output Total 1390 ml Balance 644 ml DENI NAILS MD October 26, 2018 09:40
--- NOTE | 2018-10-26 11:00 | IPNPDOC ---
Subjective Date Seen The patient was seen on 10/26/18. Subjective Chief Complaint/HPI Patient feels hungry was treated had a BM with some blood General: Denies: ROS Unobtainable, Chills, Night Sweats, Fatigue, Malaise, Normal Appetite, Other Symptoms Constitutional: Denies: Chills, Fever, Malaise, Night Sweats, Weakness, Fatigue, Weight Loss, Lethargy, Other Eyes: Denies: Pain, Vision change, Conjunctivae inflammation, Eyelid inflammation, Redness, Other ENT: Denies: Head Aches, Ear Pain, Dysphagia, Sinus Congestion, Post Nasal Drip, Sore Throat, Epistaxis, Other Symptoms Skin: Denies: Rash, Lesions, Jaundice, Bruising, Itching, Dry, Breakdown, Nail Changes, Other Pulmonary: Denies: Dyspnea, Cough, Pleuritic Chest Pain, Other Symptoms Cardiovascular: Denies: Chest Pain, Palpitations, Orthopnea, Paroxysmal Noc. Dyspnea, Edema, Lt Headedness, Other Symptoms Gastrointestinal: Denies: Nausea, Vomiting, Abdominal Pain, Diarrhea, Constipation, Melena, Hematochezia, Other Symptoms Genitourinary: Denies: Dysuria, Frequency, Incontinence, Hematuria, Retention, Other Symptoms Hematologic: Denies: Bruising, Bleeding Excessively, Petecchia, Purpura, Enlarged Lymph Nodes, Other Hematologic Endocrine: Denies: Polydipsia, Polyphagia, Polyuria, Heat Intolerance, Cold Intolerance, Other Endocrine Sx Musculoskeletal: Denies: Neck Pain, Back Pain, Shoulder Pain, Arm Pain, Hand Pain, Leg Pain, Foot Pain, Joint Pain, Muscle Pain, Spasms, Other Symptoms Neurological: Denies: Weakness, Numbness, Incoordination, Change in speech, Confusion, Seizures, Other Symptoms Psych: Denies: Mood Normal, Anxiety, Depression, Memory Issues, Thoughts of Self Harm, Anger, Thoughts of Harming Other, Other Psych Objective Physical Examination General Exam: Positive: Alert, Cooperative Eye Exam: Positive: PERRLA ENT Exam: Positive: Atraumatic, Mucous membr. moist/pink Chest Exam: Positive: Clear to auscultation Heart Exam: Positive: Rate Normal, Normal S1, Normal S2 Abdomen Exam: Positive: Normal bowel sounds, Soft Extremity Exam: Positive: Normal pulses Skin Exam: Positive: Nl turgor and temperature Neuro Exam: Positive: Normal Gait, Normal Speech Psych Exam: Positive: Mental status NL, Mood NL, Oriented x 3 Assessment /Plan Problems (1) GI bleed Status: Acute Problem Text: 1. Acute Blood Loss Anemia 2/2 Upper vs Lower GI bleed -Patient has received 2 colonoscopies and a mesenteric angiogram without success in locating the patients source of bleeding. GI had taken the patient yesterday for his second colonoscopy and was once again unable to locate a source. In the previous colonoscopy a mucosal spot was identified and clips were placed in what was believed to be the splenic flexure. On repeat this appeared to be at the hepatic flexure. The patient continues to bleed and receive transfusions as needed. He has currently received 16 transfusion since admission and will receive a total of 17 by the end of today. Surgical consult has been placed and they have seen the patient. Unfortunately the patient is a very poor surgical candidate and he may not survive a major abdominal surgery. At this point in time we have no discernible source of bleeding which would indicate the patient would need a subtotal colectomy. However, even though a lower GI source of bleeding is suspected we can not be certain and the patient may continue to bleed regardless of procedure. Status post embolization of gastric duodenal artery Received 1 PRBC transfusion yesterday Monitor H&H , Transfuse if needed Start clear liquid diet, then progress to regular A.m. laboratory work has been ordered 2. Atrial Fibrillation -Patient has a history of atrial fibrillation. -Continue Digoxin and Multaq. He remains rate controlled -Currently holding Eliquis due to GI bleed. Will likely not resume anticoagulation upon discharge as patient has a significant GI bleed with ongoing blood loss. 3. IDDM -Patient is currently NPO. -Sliding Scale insulin Q6H fingersticks -Will resume home basal coverage 35 units of levemir once patient begins diet 4. Chronic Lower Back Pain -MS Cotin 30mg daily PO and 15mg QHS 5. Hypothyroidism -Continue Synthroid 6. Seasonal Allergies -Continue Melinda 7. DVT prophylaxis -Mechanical prophylaxis with TEDs and Sequentials Plan/VTE VTE Prophylaxis Ordered?: No VTE Exclusion Pharmacological: Active Bleeding VS, I&O, 24H, Fishbone Vital Signs/I&O Vital Signs Date Time Temp Pulse Resp B/P (MAP) Pulse Ox O2 Delivery O2 Flow Rate FiO2 10/26/18 08:54 18 96 10/26/18 08:53 57 10/26/18 08:00 98.1 103/54 (70) I&O- Last 24 Hours up to 6 AM 10/26/18 05:59 Intake Total 2034 ml Output Total 1390 ml Balance 644 ml Laboratory Data 24H LABS Laboratory Tests 2 10/25/18 11:48: Bedside Glucose (Misc Panel) 103 10/25/18 17:08: Bedside Glucose (Misc Panel) 102 10/25/18 18:53: Nucleated Red Blood Cells % (auto) 0.0 10/25/18 19:36: Lab Scanned Report Transfusion Record 10/25/18 20:15: Bedside Glucose (Misc Panel) 167H 10/26/18 05:15: Nucleated Red Blood Cells % (auto) 0.0, Anion Gap 6L, Glomerular Filtration Rate > 60.0, Blood Urea Nitrogen 11, Creatinine 1.09, Sodium Level 139, Potassium Level 4.0, Chloride Level 109H, Carbon Dioxide Level 24, Calcium Level 7.6L, Aspartate Amino Transf (AST/SGOT) 20, Alanine Aminotransferase (ALT/SGPT) < 6L, Alkaline Phosphatase 39L, Total Bilirubin 1.0, Total Protein 4.6L, Albumin 1.7L, Albumin/Globulin Ratio 0.59L CBC/BMP Laboratory Tests 10/25/18 18:53 Red Blood Count 2.97 L, Mean Corpuscular Volume 91.6, Mean Corpuscular Hemoglob in 30.6, Mean Corpuscular Hemoglobin Concent 33.5, Red Cell Distribution Width 15.6 H 10/26/18 05:15 Red Blood Count 2.78 L, Mean Corpuscular Volume 93.9, Mean Corpuscular Hemog lobin 31.3, Mean Corpuscular Hemoglobin Concent 33.3, Red Cell Distribution Width 15.5 H, Calcium Level 7.6 L, Aspartate Amino Transf (AST/SGOT) 20, Alanine Aminotransferase (ALT/SGPT) < 6 L, Alkaline Phosphatase 39 L, Total Bilirubin 1.0, Total Protein 4.6 L, Albumin 1.7 L ELDON ELMORE MD October 26, 2018 11:00
[2018-10-26 12:00] VITALS: BP 100/55
[2018-10-26 16:00] VITALS: BP 97/50
[2018-10-26 19:01] LABS: HEMATOCRIT 29.6 % (42.0-52.0); HEMOGLOBIN 9.9 g/dl (13.5-17.5); MEAN CORPUSCULAR HEMOGLOBIN 31.6 pg (27.0-33.0); MEAN CORPUSCULAR HGB CONC 33.4 g/dl (32.0-36.5); MEAN CORPUSCULAR VOLUME 94.6 fl (80.0-96.0); PLATELET COUNT, AUTOMATED 162 10^3/uL (150-450); RED BLOOD COUNT 3.13 10^6/uL (4.30-6.10); WHITE BLOOD COUNT 13.6 10^3/uL (4.0-10.0)
[2018-10-26 20:00] VITALS: BP 106/53
[2018-10-26] MEDS: SIMVASTATIN 10 MG TAB PO SCH (20:53)
[2018-10-26 23:59] VITALS: BP 96/52
[2018-10-27 04:00] VITALS: BP 119/56
[2018-10-27 05:54] LABS: HEMATOCRIT 27.1 % (42.0-52.0); HEMOGLOBIN 9.1 g/dl (13.5-17.5); MEAN CORPUSCULAR HEMOGLOBIN 31.6 pg (27.0-33.0); MEAN CORPUSCULAR HGB CONC 33.6 g/dl (32.0-36.5); MEAN CORPUSCULAR VOLUME 94.1 fl (80.0-96.0); PLATELET COUNT, AUTOMATED 147 10^3/uL (150-450); RED BLOOD COUNT 2.88 10^6/uL (4.30-6.10); WHITE BLOOD COUNT 10.6 10^3/uL (4.0-10.0)
[2018-10-27] MEDS: LEVOTHYROXINE 125MCG TABLET (0.125MG) PO SCH (06:13)
[2018-10-27] MEDS: SLF 3 ML SYR IV SCH ×3 (06:14→21:52)
[2018-10-27] MEDS: ACETAMINOPHEN TAB 650MG DOSE (2X325MG) PO PRN ×2 (06:14→11:48)
[2018-10-27 06:24] LABS: ALBUMIN 1.7 GM/DL (3.2-5.2); ALT/SGPT 10 U/L (12-78); BILIRUBIN,TOTAL 0.5 MG/DL (0.2-1.0); BLOOD UREA NITROGEN 14 MG/DL (7-18); CALCIUM LEVEL 7.6 MG/DL (8.8-10.2); CARBON DIOXIDE LEVEL 24 MEQ/L (21-32); CHLORIDE LEVEL 108 MEQ/L (98-107); CREATININE FOR GFR 1.11 MG/DL (0.70-1.30); GLOMERULAR FILTRATION RATE > 60.0 (>35); GLUCOSE, FASTING 148 MG/DL (70-100); POTASSIUM SERUM 3.9 MEQ/L (3.5-5.1); SODIUM LEVEL 139 MEQ/L (136-145)
[2018-10-27 08:00] VITALS: BP 112/56
[2018-10-27] MEDS: HumaLOG INSULIN (NovoLOG) PER UNIT SC SCH ×4 (08:41→21:00)
[2018-10-27] MEDS: FEXOFENADINE 60 MG TAB PO SCH (08:41)
[2018-10-27] MEDS: OMEPRAZOLE 20 MG CAP PO SCH (08:42)
[2018-10-27] MEDS: FOLIC ACID 1 MG TAB PO SCH (08:42)
[2018-10-27] MEDS: DRONEDARONE 400 MG TAB (MULTAQ) PO SCH ×2 (08:42→17:47)
[2018-10-27] MEDS: DIGOXIN 0.125 MG TAB PO SCH (08:42)
--- NOTE | 2018-10-27 09:49 | IPNPDOC ---
Date Seen The patient was seen on 10/27/18. Progress Note Vascular Surgery: Dr. Morales HPI: 82year oldM admitted since 10/13/18 related to GI bleed receiving total of 21 units of PRBC since admission. Vascular surgery was consulted regarding GI Bleeding with initial angiogram 10/18/18 with no obvious source of bleeding identified. Vascular surgery was requested to reassess 10/24/18 with follow-up angiogram completed 10/24/[address] Morales with coil embolization of gastroduodenal artery. This a.m. the patient reports he has been tolerating po. Is advanced to soft diet. He denies any abdominal pain, nausea, vomiting. 3 BM 10/26, 1 BM today, the pt states dark in color. Denies any BRB. Denies any fevers, chills, weakness, fatigue, Headache, Chest Pain, Shortness of breath, cough, palpitations, abdominal pain, N/V/D or changes in bowel or bl adder habits. PAST MEDICAL HISTORY: HFpEF (LVEF 60-65%) 05/2018 COPD REBEKAH on CPAP GERD Gout Paroxysmal Atrial Fibrillation BPH PAST SURGICAL HISTORY: TURP ESWL left arm PE: GEN: 82yoM, appears pale. Alert and oriented x 3. HEENT: Normocephalic, atraumatic.Sclera are nonicteric. Conjunctiva without injection. No facial asymmetry. Moist mucous membranes. CHEST: Regular rate and rhythm, +S1, +S2 LUNGS: Clear to auscultation bilaterally. ABD: Round, soft, non-tender, non-distended. +Bowel sounds throughout. EXT: Pulses palpable bilaterally LEs. No lower extremity edema appreciated. SKIN: [place], dry, warm. No rashes. NEURO: Alert and oriented x 3. Cranial nerves III-XII are intact. No focal deficits appreciated. A&P: 82year oldM admitted since 10/13/18 related to GI bleed receiving total of 21 units of PRBC since admission. Vascular surgery was consulted regarding GI Bleeding with initial angiogram 10/18/18 with no obvious source of bleeding identified. Vascular surgery was requested to reassess 10/24/18 with follow-up angiogram completed 10/24/[address] Morales with coil embolization of gastroduodenal artery. 1. Acute Blood Loss Anemia 2/2 GI bleed. Angiogram completed 10/24/[address] Morales with coil embolization of gastroduodenal artery. SCr 1.11. Hemoglobin is noted to be 9.1, stable. ASA/Eliquis on Hold. Continue to closely monitor. Could consider repeat mesenteric angiogram if needed. Would recommend PPI BID, Carafate AC/HS. 2. PAF. Eliquis/ASA 81mg on Hold DVT prophylaxis. Eliquis on hold. SCD/TEDS. VS, I&O, 24H, Fishbone Vital Signs/I&O Vital Signs Date Time Temp Pulse Resp B/P (MAP) Pulse Ox O2 Delivery O2 Flow Rate FiO2 10/27/18 08:42 65 10/27/18 08:00 99.1 18 112/56 (74) 95 I&O- Last 24 Hours up to 6 AM 10/27/18 06:00 Intake Total 1970 ml Output Total 1150 ml Balance 820 ml Laboratory Data 24H LABS Laboratory Tests 2 10/26/18 11:26: Bedside Glucose (Misc Panel) 177H 10/26/18 16:50: Bedside Glucose (Misc Panel) 139H 10/26/18 18:50: Nucleated Red Blood Cells % (auto) 0.0 10/26/18 20:41: Bedside Glucose (Misc Panel) 182H 10/27/18 05:15: Nucleated Red Blood Cells % (auto) 0.0, Anion Gap 7L, Glomerular Filtration Rate > 60.0, Blood Urea Nitrogen 14, Creatinine 1.11, Sodium Level 139, Potassium Level 3.9, Chloride Level 108H, Carbon Dioxide Level 24, Calcium Level 7.6L, Aspartate Amino Transf (AST/SGOT) 17, Alanine Aminotransferase (ALT/SGPT) 10L, Alkaline Phosphatase 47, Total Bilirubin 0.5, Total Protein 5.0L, Albumin 1.7L, Albumin/Globulin Ratio 0.52L CBC/BMP Laboratory Tests 10/26/18 18:50 Red Blood Count 3.13 L, Mean Corpuscular Volume 94.6, Mean Corpuscular Hemoglobin 31.6, Mean Corpuscular Hemoglobin Concent 33.4, Red Cell Distribution Width 15.6 H 10/27/18 05:15 Red Blood Count 2.88 L, Mean Corpuscular Volume 94.1, Mean Corpuscular Hemoglobin 31.6, Mean Corpuscular Hemoglobin Concent 33.6, Red Cell Distribution Width 15.5 H, Calcium Level 7.6 L, Aspartate Amino Transf (AST/SGOT) 17, Alanine Aminotransferase (ALT/SGPT) 10 L, Alkaline Phosphatase 47, Total Bilirubin 0.5, Total Protein 5.0 L, Albumin 1.7 L Giovanna Batista October 27, 2018 09:49
[2018-10-27 12:00] VITALS: BP 104/54
--- NOTE | 2018-10-27 12:32 | IPNPDOC ---
Subjective Date Seen The patient was seen on 10/27/18. Subjective Chief Complaint/HPI Patient had 1 BM with some is still evident with some blood in it General: Denies: ROS Unobtainable, Chills, Night Sweats, Fatigue, Malaise, Normal Appetite, Other Symptoms Constitutional: Denies: Chills, Fever, Malaise, Night Sweats, Weakness, Fatigue, Weight Loss, Lethargy, Other Eyes: Denies: Pain, Vision change, Conjunctivae inflammation, Eyelid inflammation, Redness, Other ENT: Denies: Head Aches, Ear Pain, Dysphagia, Sinus Congestion, Post Nasal D rip, Sore Throat, Epistaxis, Other Symptoms Skin: Denies: Rash, Lesions, Jaundice, Bruising, Itching, Dry, Breakdown, Nail Changes, Other Pulmonary: Denies: Dyspnea, Cough, Pleuritic Chest Pain, Other Symptoms Cardiovascular: Denies: Chest Pain, Palpitations, Orthopnea, Paroxysmal Noc. Dyspnea, Edema, Lt Headedness, Other Symptoms Gastrointestinal: Reports: Melena Genitourinary: Denies: Dysuria, Frequency, Incontinence, Hematuria, Retention, Other Symptoms Hematologic: Denies: Bruising, Bleeding Excessively, Petecchia, Purpura, Enlarged Lymph Nodes, Other Hematologic Endocrine: Denies: Polydipsia, Polyphagia, Polyuria, Heat Intolerance, Cold Intolerance, Other Endocrine Sx Musculoskeletal: Denies: Neck Pain, Back Pain, Shoulder Pain, Arm Pain, Hand Pain, Leg Pain, Foot Pain, Joint Pain, Muscle Pain, Spasms, Other Symptoms Neurological: Denies: Weakness, Numbness, Incoordination, Change in speech, Confusion, Seizures, Other Symptoms Psych: Denies: Mood Normal, Anxiety, Depression, Memory Issues, Thoughts of Self Harm, Anger, Thoughts of Harming Other, Other Psych Objective Physical Examination General Exam: Positive: Alert, Cooperative Eye Exam: Positive: PERRLA ENT Exam: Positive: Atraumatic, Mucous membr. moist/pink Chest Exam: Positive: Clear to auscultation Heart Exam: Positive: Rate Normal, Normal S1, Normal S2 Abdomen Exam: Positive: Normal bowel sounds, Soft Extremity Exam: Positive: Normal pulses Skin Exam: Positive: Nl turgor and temperature Neuro Exam: Positive: Normal Gait, Normal Speech Psych Exam: Positive: Mental status NL, Mood NL, Oriented x 3 Assessment /Plan Problems (1) GI bleed Status: Acute Problem Text: 1. Acute Blood Loss Anemia 2/2 Upper vs Lower GI bleed -Patient has received 2 colonoscopies and a mesenteric angiogram without success in locating the patients source of bleeding. GI had taken the patient yesterday for his second colonoscopy and was once again unable to locate a source. In the previous colonoscopy a mucosal spot was identified and clips were placed in what was believed to be the splenic flexure. On repeat this appeared to be at the hepatic flexure. The patient continues to bleed and receive transfusions as needed. He has currently received 16 transfusion since admission and will receive a total of 17 by the end of today. Surgical consult has been placed and they have seen the patient. Unfortunately the patient is a very poor surgical candidate and he may not survive a major abdominal surgery. At this point in time we have no discernible source of bleeding which would indicate the patient would need a subtotal colectomy. However, even though a lower GI source of bleeding is suspected we can not be certain and the patient may continue to bleed regardless of procedure. Status post embolization of gastric duodenal artery Diet has been progressed to regular diet , Hemoglobin is stable so far Will continue monitoring H&H Possible DC back to residential on Tuesday 2. Atrial Fibrillation -Patient has a history of atrial fibrillation. -Continue Digoxin and Multaq. He remains rate controlled -Currently holding Eliquis due to GI bleed. Will likely not resume anticoagulation upon discharge as patient has a significant GI bleed with ongoing blood loss. 3. IDDM -Patient is currently NPO. -Sliding Scale insulin Q6H fingersticks -Will resume home basal coverage 35 units of levemir once patient begins diet 4. Chronic Lower Back Pain -MS Cotin 30mg daily PO and 15mg QHS 5. Hypothyroidism -Continue Synthroid 6. Seasonal Allergies -Continue Melinda 7. DVT prophylaxis -Mechanical prophylaxis with TEDs and Sequentials Plan/VTE VTE Prophylaxis Ordered?: No VTE Exclusion Pharmacological: Active Bleeding VS, I&O, 24H, Fishbone Vital Signs/I&O Vital Signs Date Time Temp Pulse Resp B/P (MAP) Pulse Ox O2 Delivery O2 Flow Rate FiO2 10/27/18 12:00 97.9 60 18 104/54 (71) 98 I&O- Last 24 Hours up to 6 AM 10/27/18 06:00 Intake Total 1970 ml Output Total 1150 ml Balance 820 ml Laboratory Data 24H LABS Laboratory Tests 2 10/26/18 16:50: Bedside Glucose (Misc Panel) 139H 10/26/18 18:50: Nucleated Red Blood Cells % (auto) 0.0 10/26/18 20:41: Bedside Glucose (Misc Panel) 182H 10/27/18 05:15: Nucleated Red Blood Cells % (auto) 0.0, Anion Gap 7L, Glomerular Filtration Rate > 60.0, Blood Urea Nitrogen 14, Creatinine 1.11, Sodium Level 139, Potassium Level 3.9, Chloride Level 108H, Carbon Dioxide Level 24, Calcium Level 7.6L, Aspartate Amino Transf (AST/SGOT) 17, Alanine Aminotransferase (ALT/SGPT) 10L, Alkaline Phosphatase 47, Total Bilirubin 0.5, Total Protein 5.0L, Albumin 1.7L, Albumin/Globulin Ratio 0.52L 10/27/18 12:01: Bedside Glucose (Misc Panel) 199H CBC/BMP Laboratory Tests 10/26/18 18:50 Red Blood Count 3.13 L, Mean Corpuscular Volume 94.6, Mean Corpuscular Hemoglobin 31.6, Mean Corpuscular Hemoglobin Concent 33.4, Red Cell Distribution Width 15.6 H 10/27/18 05:15 Red Blood Count 2.88 L, Mean Corpuscular Volume 94.1, Mean Corpuscular Hemoglobin 31.6, Mean Corpuscular Hemoglobin Concent 33.6, Red Cell Distribution Width 15.5 H, Calcium Level 7.6 L, Aspartate Amino Transf (AST/SGOT) 17, Alanine Aminotransferase (ALT/SGPT) 10 L, Alkaline Phosphatase 47, Total Bilirubin 0.5, Total Protein 5.0 L, Albumin 1.7 L ELDON ELMORE MD October 27, 2018 12:32
[2018-10-27] MEDS: SUCRALFATE 1 GM TAB PO SCH ×3 (12:49→21:52)
[2018-10-27 16:00] VITALS: BP 99/50
[2018-10-27 20:00] VITALS: BP 108/55
--- NOTE | 2018-10-27 20:42 | REP ---
Clinical: Chest pain. Technique: Portable semiupright view. Comparison: 10/13/2018. Findings: Diffuse chronic interstitial changes and fibrosis are relatively stable. No acute focal consolidation, effusion, or pneumothorax. Mediastinum and cardiac silhouette are within normal limits. Skeletal structures are intact. Impression: Views chronic interstitial changes and fibrosis. No acute cardiopulmonary process appreciated. Electronically Signed by Thomas Landaverde MD 10/27/2018 08:34 P
[2018-10-27 20:45] LABS: HEMATOCRIT 25.9 % (42.0-52.0); HEMOGLOBIN 8.8 g/dl (13.5-17.5)
[2018-10-27 20:59] LABS: CK-MB VALUE MASS < 1.0 NG/ML (<3.6); CPK CREATINE PHOSPHOKINASE 16 U/L (39-308); MB/CK RELATIVE INDEX 6.25 (< OR =4); TROPONIN I < 0.02 NG/ML (< 0.10)
[2018-10-27] MEDS: PANTOPRAZOLE 40MG TAB (PROTONIX) PO SCH (21:52)
[2018-10-27] MEDS: SIMVASTATIN 10 MG TAB PO SCH (21:52)
[2018-10-27 23:59] VITALS: BP 101/53
[2018-10-28 04:00] VITALS: BP 98/50
[2018-10-28 04:19] LABS: BASO % 0.4 % (0.0-1.0); EOS # 0.3 10^3/uL (0.0-0.50); EOS % 3.3 % (0.0-3.0); HEMATOCRIT 26.2 % (42.0-52.0); HEMOGLOBIN 8.8 g/dl (13.5-17.5); LYMPH # 1.2 10^3/uL (1.5-4.5); MEAN CORPUSCULAR HEMOGLOBIN 31.5 pg (27.0-33.0); MEAN CORPUSCULAR HGB CONC 33.6 g/dl (32.0-36.5); MEAN CORPUSCULAR VOLUME 93.9 fl (80.0-96.0); MONO # 0.6 10^3/uL (0.0-0.8); NEUTROPHILS # 7.3 10^3/uL (1.8-7.7); NEUTROPHILS % 76.6 % (36.0-66.0); PLATELET COUNT, AUTOMATED 148 10^3/uL (150-450); RED BLOOD COUNT 2.79 10^6/uL (4.30-6.10); WHITE BLOOD COUNT 9.5 10^3/uL (4.0-10.0)
[2018-10-28 04:44] LABS: ALBUMIN 1.6 GM/DL (3.2-5.2); ALT/SGPT 8 U/L (12-78); BILIRUBIN,TOTAL 0.5 MG/DL (0.2-1.0); BLOOD UREA NITROGEN 17 MG/DL (7-18); CALCIUM LEVEL 7.3 MG/DL (8.8-10.2); CARBON DIOXIDE LEVEL 25 MEQ/L (21-32); CHLORIDE LEVEL 110 MEQ/L (98-107); CK-MB VALUE MASS < 1.0 NG/ML (<3.6); CPK CREATINE PHOSPHOKINASE 16 U/L (39-308); CREATININE FOR GFR 1.03 MG/DL (0.70-1.30); GLOMERULAR FILTRATION RATE > 60.0 (>35); GLUCOSE, FASTING 164 MG/DL (70-100); MB/CK RELATIVE INDEX 6.25 (< OR =4); POTASSIUM SERUM 4.2 MEQ/L (3.5-5.1); SODIUM LEVEL 140 MEQ/L (136-145); TOTAL PROTEIN 5.4 GM/DL (6.4-8.2); TROPONIN I 0.02 NG/ML (< 0.10)
[2018-10-28] MEDS: ACETAMINOPHEN TAB 650MG DOSE (2X325MG) PO PRN ×2 (06:08→17:05)
[2018-10-28] MEDS: SLF 3 ML SYR IV SCH ×3 (06:08→21:39)
[2018-10-28] MEDS: LEVOTHYROXINE 125MCG TABLET (0.125MG) PO SCH (06:08)
[2018-10-28 08:00] VITALS: BP 105/51
[2018-10-28] MEDS: FEXOFENADINE 60 MG TAB PO SCH (08:12)
[2018-10-28] MEDS: FOLIC ACID 1 MG TAB PO SCH (08:12)
[2018-10-28] MEDS: DIGOXIN 0.125 MG TAB PO SCH (08:12)
[2018-10-28] MEDS: HumaLOG INSULIN (NovoLOG) PER UNIT SC SCH ×4 (08:12→21:00)
[2018-10-28] MEDS: PANTOPRAZOLE 40MG TAB (PROTONIX) PO SCH ×2 (08:13→21:45)
[2018-10-28] MEDS: SUCRALFATE 1 GM TAB PO SCH ×4 (08:13→21:45)
[2018-10-28] MEDS: DRONEDARONE 400 MG TAB (MULTAQ) PO SCH ×2 (08:13→17:05)
--- NOTE | 2018-10-28 09:52 | IPNPDOC ---
Subjective Date Seen The patient was seen on 10/28/18. Subjective Chief Complaint/HPI Patient comfortable offering no new complaints. Tolerating oral feeding very well. No BM's with blood any more General: Denies: ROS Unobtainable, Chills, Night Sweats, Fatigue, Malaise, Normal Appetite, Other Symptoms Constitutional: Denies: Chills, Fever, Malaise, Night Sweats, Weakness, Fatigue, Weight Loss, Lethargy, Other Eyes: Denies: Pain, Vision change, Conjunctivae inflammation, Eyelid inflammation, Redness, Other ENT: Denies: Head Aches, Ear Pain, Dysphagia, Sinus Congestion, Post Nasal Drip, Sore Throat, Epistaxis, Other Symptoms Skin: Denies: Rash, Lesions, Jaundice, Bruising, Itching, Dry, Breakdown, Nail Changes, Other Pulmonary: Denies: Dyspnea, Cough, Pleuritic Chest Pain, Other Symptoms Cardiovascular: Denies: Chest Pain, Palpitations, Orthopnea, Paroxysmal Noc. Dyspnea, Edema, Lt Headedness, Other Symptoms Gastrointestinal: Denies: Nausea, Vomiting, Abdominal Pain, Diarrhea, Constipation, Melena, Hematochezia, Other Symptoms Genitourinary: Denies: Dysuria, Frequency, Incontinence, Hematuria, Retention, Other Symptoms Hematologic: Denies: Bruising, Bleeding Excessively, Petecchia, Purpura, Enl arged Lymph Nodes, Other Hematologic Endocrine: Denies: Polydipsia, Polyphagia, Polyuria, Heat Intolerance, Cold Intolerance, Other Endocrine Sx Musculoskeletal: Denies: Neck Pain, Back Pain, Shoulder Pain, Arm Pain, Hand Pain, Leg Pain, Foot Pain, Joint Pain, Muscle Pain, Spasms, Other Symptoms Neurological: Denies: Weakness, Numbness, Incoordination, Change in speech, Confusion, Seizures, Other Symptoms Psych: Denies: Mood Normal, Anxiety, Depression, Memory Issues, Thoughts of Self Harm, Anger, Thoughts of Harming Other, Other Psych Objective Physical Examination General Exam: Positive: Alert, Cooperative Eye Exam: Positive: PERRLA ENT Exam: Positive: Atraumatic, Mucous membr. moist/pink Chest Exam: Positive: Clear to auscultation Heart Exam: Positive: Rate Normal, Normal S1, Normal S2 Abdomen Exam: Positive: Normal bowel sounds, Soft Extremity Exam: Positive: Normal pulses Skin Exam: Positive: Nl turgor and temperature Neuro Exam: Positive: Normal Gait, Normal Speech Psych Exam: Positive: Mental status NL, Mood NL, Oriented x 3 Assessment /Plan Problems (1) GI bleed Status: Acute Problem Text: 1. Acute Blood Loss Anemia 2/2 Upper vs Lower GI bleed -Patient has received 2 colonoscopies and a mesenteric angiogram without success in locating the patients source of bleeding. GI had taken the patient yesterday for his second colonoscopy and was once again unable to locate a source. In the previous colonoscopy a mucosal spot was identified and clips were placed in what was believed to be the splenic flexure. On repeat this appeared to be at the hepatic flexure. The patient continues to bleed and receive transfusions as needed. He has currently received 16 transfusion since admission and will receive a total of 17 by the end of today. Surgical consult has been placed and they have seen the patient. Unfortunately the patient is a very poor surgical candidate and he may not survive a major abdominal surgery. At this point in time we have no discernible source of bleeding which would indicate the patient would need a subtotal colectomy. However, even though a lower GI source of bleeding is suspected we can not be certain and the patient may continue to bleed regardless of procedure. Status post embolization of gastric duodenal artery Patient is tolerating oral feeding very well No more BM with blood in the stool H&H is stable Acid. We'll DC on Tuesday. 2. Back to retirement 2. Atrial Fibrillation -Patient has a history of atrial fibrillation. -Continue Digoxin and Multaq. He remains rate controlled -Will DC aliquots due to GI bleed. Will likely not resume anticoagulation upon discharge as patient has a significant GI bleed with ongoing blood loss. 3. IDDM -Patient is currently NPO. -Sliding Scale insulin Q6H fingersticks -Will resume home basal coverage 35 units of levemir once patient begins diet 4. Chronic Lower Back Pain -MS Cotin 30mg daily PO and 15mg QHS 5. Hypothyroidism -Continue Synthroid 6. Seasonal Allergies -Continue Melinda 7. DVT prophylaxis -Mechanical prophylaxis with TEDs and Sequentials Plan/VTE VTE Prophylaxis Ordered?: No VTE Exclusion Pharmacological: Active Bleeding VS, I&O, 24H, Fishbone Vital Signs/I&O Vital Signs Date Time Temp Pulse Resp B/P (MAP) Pulse Ox O2 Delivery O2 Flow Rate FiO2 10/28/18 08:12 84 6/1/19 08:00 98.7 20 105/51 (14) 96 I&O- Last 24 Hours up to 6 AM 10/28/18 06:00 Intake Total 630 ml Output Total 1525 ml Balance -895 ml Laboratory Data 24H LABS Laboratory Tests 2 10/27/18 12:01: Bedside Glucose (Misc Panel) 199H 10/27/18 17:31: Bedside Glucose (Misc Panel) 154H 10/27/18 20:20: Total Creatine Kinase 16L, Creatine Kinase MB < 1.0, Creatine Kinase MB Relative Index 6.25H, Troponin I < 0.02 10/27/18 20:51: Bedside Glucose (Misc Panel) 174H 10/28/18 03:55: Immature Granulocyte % (Auto) 0.7, White Blood Count 9.5, Red Blood Count 2.79L, Hemoglobin 8.8L, Hematocrit 26.2L, Mean Corpuscular Volume 93.9, Mean Corpuscular Hemoglobin 31.5, Mean Corpuscular Hemoglobin Concent 33.6, Red Cell Distribution Width 15.6H, Platelet Count 148L, Neutrophils (%) (Auto) 76.6H, Lymphocytes (%) (Auto) 13.0L, Monocytes (%) (Auto) 6.0H, Eosinophils (%) (Auto) 3.3H, Basophils (%) (Auto) 0.4, Neutrophils # (Auto) 7.3, Lymphocytes # (Auto) 1.2L, Monocytes # (Auto) 0.6, Eosinophils # (Auto) 0.3, Basophils # (Auto) 0.0, Nucleated Red Blood Cells % (auto) 0.0, Anion Gap 5L, Glomerular Filtration Rate > 60.0, Blood Urea Nitrogen 17, Creatinine 1.03, Sodium Level 140, Potassium Level 4.2, Chloride Level 110H, Carbon Dioxide Level 25, Calcium Level 7.3L, Aspartate Amino Transf (AST/SGOT) 15, Alanine Aminotransferase (ALT/SGPT) 8L, Total Creatine Kinase 16L, Alkaline Phosphatase 50, Total Bilirubin 0.5, Total Protein 5.4L, Albumin 1.6L, Creatine Kinase MB < 1.0, Creatine Kinase MB Relative Index 6.25H, Troponin I 0.02, Albumin/Globulin Ratio 0.42L CBC/BMP Laboratory Tests 10/27/18 20:20 10/28/18 03:55 Red Blood Count 2.79 L, Mean Corpuscular Volume 93.9, Mean Corpuscular Hemoglobin 31.5, Mean Corpuscular Hemoglobin Concent 33.6, Red Cell Distribution Width 15.6 H, Neutrophils (%) (Auto) 76.6 H, Lymphocytes (%) (Auto) 13.0 L, Monocytes (%) (Auto) 6.0 H, Eosinophils (%) (Auto) 3.3 H, Basophils (%) (Auto) 0 .4, Neutrophils # (Auto) 7.3, Lymphocytes # (Auto) 1.2 L, Monocytes # (Auto) 0.6, Eosinophils # (Auto) 0.3, Basophils # (Auto) 0.0, Calcium Level 7.3 L, Aspartate Amino Transf (AST/SGOT) 15, Alanine Aminotransferase (ALT/SGPT) 8 L, Total Creatine Kinase 16 L, Alkaline Phosphatase 50, Total Bilirubin 0.5, Total Protein 5.4 L, Albumin 1.6 L ELDON ELMORE MD Oct 28, 2018 09:52
[2018-10-28 12:00] VITALS: BP 120/59
[2018-10-28 12:50] LABS: CK-MB VALUE MASS < 1.0 NG/ML (<3.6); CPK CREATINE PHOSPHOKINASE 17 U/L (39-308); MB/CK RELATIVE INDEX 5.88 (< OR =4); TROPONIN I 0.02 NG/ML (< 0.10)
[2018-10-28 16:00] VITALS: BP 110/53
[2018-10-28 20:00] VITALS: BP 120/65
[2018-10-28] MEDS ORDERED: GABAPENTIN 100 MG CAP PO ONE (21:00)
[2018-10-28] MEDS: SIMVASTATIN 10 MG TAB PO SCH (21:45)
[2018-10-28 23:59] VITALS: BP 116/57
[2018-10-29 04:00] VITALS: BP 104/51
[2018-10-29 04:57] LABS: HEMOGLOBIN 8.8 g/dl (13.5-17.5); MEAN CORPUSCULAR HEMOGLOBIN 31.8 pg (27.0-33.0); MEAN CORPUSCULAR HGB CONC 33.8 g/dl (32.0-36.5); MEAN CORPUSCULAR VOLUME 93.9 fl (80.0-96.0); PLATELET COUNT, AUTOMATED 167 10^3/uL (150-450); RED BLOOD COUNT 2.77 10^6/uL (4.30-6.10); WHITE BLOOD COUNT 8.3 10^3/uL (4.0-10.0)
[2018-10-29 05:12] LABS: BLOOD UREA NITROGEN 14 MG/DL (7-18); CALCIUM LEVEL 8.1 MG/DL (8.8-10.2); CARBON DIOXIDE LEVEL 25 MEQ/L (21-32); CHLORIDE LEVEL 111 MEQ/L (98-107); CREATININE FOR GFR 1.14 MG/DL (0.70-1.30); GLOMERULAR FILTRATION RATE > 60.0 (>35); GLUCOSE, FASTING 154 MG/DL (70-100); SODIUM LEVEL 143 MEQ/L (136-145)
[2018-10-29] MEDS: LEVOTHYROXINE 125MCG TABLET (0.125MG) PO SCH (05:19)
[2018-10-29] MEDS: SLF 3 ML SYR IV SCH ×3 (05:19→20:52)
--- NOTE | 2018-10-29 07:37 | REP ---
Clinical: Left lower extremity pain and swelling . Technique: Pugh scale and color Doppler evaluation using linear high frequency transducer. Findings: Ultrasound examination of the left lower extremity deep venous structures from the common femoral vein to the popliteal vein demonstrates normal compressibility flow and wave patterns in response to respiration and augmentation. There is no evidence for deep venous thrombosis. Impression: No evidence for deep venous thrombosis. Electronically Signed by Thomas Landaverde MD 10/29/2018 07:28 A
[2018-10-29] MEDS: DIGOXIN 0.125 MG TAB PO SCH (07:52)
[2018-10-29] MEDS: DRONEDARONE 400 MG TAB (MULTAQ) PO SCH ×2 (07:52→17:31)
[2018-10-29] MEDS: HumaLOG INSULIN (NovoLOG) PER UNIT SC SCH ×4 (07:52→19:45)
[2018-10-29] MEDS: PANTOPRAZOLE 40MG TAB (PROTONIX) PO SCH ×2 (07:53→20:52)
[2018-10-29] MEDS: FOLIC ACID 1 MG TAB PO SCH (07:53)
[2018-10-29] MEDS: FEXOFENADINE 60 MG TAB PO SCH (07:53)
[2018-10-29] MEDS: SUCRALFATE 1 GM TAB PO SCH ×4 (07:53→20:52)
[2018-10-29] MEDS: ACETAMINOPHEN TAB 650MG DOSE (2X325MG) PO PRN ×3 (07:53→22:51)
[2018-10-29 08:00] VITALS: BP 104/58
--- NOTE | 2018-10-29 09:12 | IPNPDOC ---
Subjective Date Seen The patient was seen on 10/29/18. Subjective Chief Complaint/HPI Patient feeling much better. H&H is stable. He had some twitching of his left leg, which is resolved General: Denies: ROS Unobtainable, Chills, Night Sweats, Fatigue, Malaise, Normal Appetite, Other Symptoms Constitutional: Denies: Chills, Fever, Malaise, Night Sweats, Weakness, Fatigue, Weight Loss, Lethargy, Other Skin: Denies: Rash, Lesions, Jaundice, Bruising, Itching, Dry, Breakdown, Nail Changes, Other Pulmonary: Denies: Dyspnea, Cough, Pleuritic Chest Pain, Other Symptoms Cardiovascular: Denies: Chest Pain, Palpitations, Orthopnea, Paroxysmal Noc. Dyspnea, Edema, Lt Headedness, Other Symptoms Gastrointestinal: Denies: Nausea, Vomiting, Abdominal Pain, Diarrhea, Constipation, Melena, Hematochezia, Other Symptoms Musculoskeletal: Denies: Neck Pain, Back Pain, Shoulder Pain, Arm Pain, Hand Pain, Leg Pain, Foot Pain, Joint Pain, Muscle Pain, Spasms, Other Symptoms Neurological: Denies: Weakness, Numbness, Incoordination, Change in speech, Confusion, Seizures, Other Symptoms Objective Physical Examination General Exam: Positive: Alert, Cooperative Eye Exam: Positive: PERRLA Chest Exam: Positive: Clear to auscultation Heart Exam: Positive: Rate Normal, Normal S1, Normal S2 Abdomen Exam: Positive: Normal bowel sounds, Soft Extremity Exam: Positive: Normal pulses Psych Exam: Positive: Mental status NL, Mood NL, Oriented x 3 Assessment /Plan Problems (1) GI bleed Status: Acute Problem Text: 1. Acute Blood Loss Anemia 2/2 Upper vs Lower GI bleed -Patient has received 2 colonoscopies and a mesenteric angiogram without success in locating the patients source of bleeding. GI had taken the patient yesterday for his second colonoscopy and was once again unable to locate a sourc e. In the previous colonoscopy a mucosal spot was identified and clips were placed in what was believed to be the splenic flexure. On repeat this appeared to be at the hepatic flexure. The patient continues to bleed and receive transfusions as needed. He has currently received 16 transfusion since admission and will receive a total of 17 by the end of today. Surgical consult has been placed and they have seen the patient. Unfortunately the patient is a very poor surgical candidate and he may not survive a major abdominal surgery. At this point in time we have no discernible source of bleeding which would indicate the patient would need a subtotal colectomy. However, even though a lower GI source of bleeding is suspected we can not be certain and the patient may continue to bleed regardless of procedure. Status post embolization of gastric duodenal artery Patient is tolerating oral feeding very well Patient is out of bed, tolerating very well his H&H is stable No more bloody bowel movements noted Will be discharged back to SNF tomorrow 2. Atrial Fibrillation -Patient has a history of atrial fibrillation. -Continue Digoxin and Multaq. He remains rate controlled -Will DC aliquots due to GI bleed. Will likely not resume anticoagulation upon discharge as patient has a significant GI bleed with ongoing blood loss. 3. IDDM -Patient is currently NPO. -Sliding Scale insulin Q6H fingersticks -Will resume home basal coverage 35 units of levemir once patient begins diet 4. Chronic Lower Back Pain -MS Cotin 30mg daily PO and 15mg QHS 5. Hypothyroidism -Continue Synthroid 6. Seasonal Allergies -Continue Melinda 7. DVT prophylaxis -Mechanical prophylaxis with TEDs and Sequentials Plan/VTE VTE Prophylaxis Ordered?: No VTE Exclusion Pharmacological: Active Bleeding VS, I&O, 24H, Fishbone Vital Signs/I&O Vital Signs Date Time Temp Pulse Resp B/P (MAP) Pulse Ox O2 Delivery O2 Flow Rate FiO2 10/29/18 08:00 98.5 62 20 104/58 (73) 95 I&O- Last 24 Hours up to 6 AM 10/29/18 06:00 Intake Total 1540 ml Output Total 850 ml Balance 690 ml Laboratory Data 24H LABS Laboratory Tests 2 10/28/18 11:33: Bedside Glucose (Misc Panel) 176H 10/28/18 12:12: Total Creatine Kinase 17L, Creatine Kinase MB < 1.0, Creatine Kinase MB Relative Index 5.88H, Troponin I 0.02 10/28/18 16:43: Bedside Glucose (Misc Panel) 168H 10/28/18 20:30: Magnesium Level 1.9 10/28/18 21:14: Bedside Glucose (Misc Panel) 193H 10/29/18 04:35: Nucleated Red Blood Cells % (auto) 0.0, Anion Gap 7L, Glomerular Filtration Rate > 60.0, Blood Urea Nitrogen 14, Creatinine 1.14, Sodium Level 143, Potassium Level 4.0, Chloride Level 111H, Carbon Dioxide Level 25, Calcium Level 8.1L CBC/BMP Laboratory Tests 10/29/18 04:35 Red Blood Count 2.77 L, Mean Corpuscular Volume 93.9, Mean Corpuscular Hemoglobin 31.8, Mean Corpuscular Hemoglobin Concent 33.8, Red Cell Distribution Width 15.7 H, Calcium Level 8.1 L ELDON ELMORE MD Oct 29, 2018 09:12
[2018-10-29 12:00] VITALS: BP 109/55
[2018-10-29 16:00] VITALS: BP 110/55
[2018-10-29 20:00] VITALS: BP 111/56
[2018-10-29] MEDS: SIMVASTATIN 10 MG TAB PO SCH (20:52)
[2018-10-29 22:30] VITALS: BP 119/52
[2018-10-30 06:00] VITALS: BP 122/52
[2018-10-30] MEDS: LEVOTHYROXINE 125MCG TABLET (0.125MG) PO SCH (06:33)
[2018-10-30] MEDS: SLF 3 ML SYR IV SCH (06:33)
[2018-10-30] MEDS: ACETAMINOPHEN TAB 650MG DOSE (2X325MG) PO PRN (06:40)
[2018-10-30] MEDS: DIGOXIN 0.125 MG TAB PO SCH (08:23)
[2018-10-30] MEDS: PANTOPRAZOLE 40MG TAB (PROTONIX) PO SCH (08:23)
[2018-10-30] MEDS: FOLIC ACID 1 MG TAB PO SCH (08:23)
[2018-10-30] MEDS: DRONEDARONE 400 MG TAB (MULTAQ) PO SCH (08:23)
[2018-10-30] MEDS: FEXOFENADINE 60 MG TAB PO SCH (08:23)
[2018-10-30] MEDS: SUCRALFATE 1 GM TAB PO SCH ×2 (08:23→12:48)
[2018-10-30] MEDS: HumaLOG INSULIN (NovoLOG) PER UNIT SC SCH ×2 (08:24→12:49)
--- NOTE | 2018-10-30 11:57 | DS.PDOC ---
Discharge Summary General Date of Admission October 13, 2018 at 12:38 Date of Discharge 11/26/2018 Attending Physician: ELDON ELMORE MD Discharge Summary PROCEDURES PERFORMED DURING STAY: None. ADMITTING DIAGNOSES: 1. GI bleed. DISCHARGE DIAGNOSES: 1. Anemia, upper GI bleed. COMPLICATIONS/CHIEF COMPLAINT: Gi Bleed. HISTORY OF PRESENT ILLNESS: HISTORY OF PRESENT ILLNESS: Patient is an 82 year old white male resident of [facility] with a past medical history significant for HFpEF (Echo in 05/2018 w/ LVEF 60-65%), paroxysmal atrial fibrillation, IDDM, COPD, REBEKAH on CPAP, and gout who presented to the [facility] Emergency Department with complaint of numerous episodes of bloody stool. The patient states that yesterday he had noticed a significant amount of blood in his stool. He denied any abdominal pain at the time. He stated that since yesterday he has had multiple episodes of bright red blood. He is unable to quantify how many bowel movements or amount of blood but states "a lot of blood". He currently denied any shortness of breath or chest pain. He denies any lightheadedness. He denies any recent or snf NSAID use. The patient states that he is in the ER because he has blood in his stool. He otherwise denies any other symptoms. In the ER the patients laboratory studies demonstrated a Hbg of 5.8. Additionally, he was found to have a BUN of 44 and Cr of 1.77. He received an CT abdomen and pelvis which demonstrated no sign of colitis, diverticulitis, stricture, mass, or inflammatory changes. Given the patients acute blood loss anemia, he was admitted to hospitalist service for further evaluation and management . HOSPITAL COURSE: [ Acute Blood Loss Anemia 2/2 Upper vs Lower GI bleed -Patient has received 2 colonoscopies and a mesenteric angiogram without success in locating the patients source of bleeding. GI had taken the patient yesterday for his second colonoscopy and was once again unable to locate a source. In the previous colonoscopy a mucosal spot was identified and clips were placed in what was believed to be the splenic flexure. On repeat this appeared to be at the hepatic flexure. The patient continues to bleed and receive transfusions as needed. He has currently received 16 transfusion since admission and will receive a total of 17 by the end of today. Surgical consult has been placed and they have seen the patient. Unfortunately the patient is a very poor surgical candidate and he may not survive a major abdominal surgery. At this point in time we have no discernible source of bleeding which would indicate the patient would need a subtotal colectomy. However, even though a lower GI source of bleeding is suspected we can not be certain and the patient may continue to bleed regardless of procedure. Status post embolization of gastric duodenal artery Patient is tolerating oral feeding very well Patient is out of bed, tolerating very well his H&H is stable No more bloody bowel movements noted Will be discharged back to SNF today DISCHARGE MEDICATIONS: Please see below. ALLERGIES: Please see below. PHYSICAL EXAMINATION ON DISCHARGE: VITAL SIGNS: Please see below. GENERAL: Within normal limits HEENT: [PERRLA NECK: Supple CARDIOVASCULAR EXAMINATION: S1, S2, regular RESPIRATORY EXAMINATION: Clear to A&P ABDOMINAL EXAMINATION: Benign EXTREMITIES: No clubbing, cyanosis, edema SKIN: Within normal limit NEUROLOGICAL EXAMINATION: No focal motor sensory deficit PSYCHIATRIC EXAMINATION: The normal limit LABORATORY DATA: Please see below. IMAGING: As per EMR PROGNOSIS: Good ACTIVITY: As tolerated. DIET: As tolerated DISCHARGE PLAN: Follow PCP and GI in one week DISPOSITION: . SNF DISCHARGE INSTRUCTIONS: 1. As above. ITEMS TO FOLLOWUP ON ON OUTPATIENT: 1. As above. DISCHARGE CONDITION: Stable. TIME SPENT ON DISCHARGE: 38 minutes. Vital Signs/I&Os Vital Signs Date Time Temp Pulse Resp B/P (MAP) Pulse Ox O2 Delivery O2 Flow Rate FiO2 10/30/18 08:23 66 10/30/18 06:00 98.0 18 122/52 (75) 98 I&O- Last 24 Hours up to 6 AM 10/30/18 06:00 Intake Total 1320 ml Output Total 0 ml Balance 1320 ml Laboratory Data Labs 24H Laboratory Tests 2 10/29/18 15:55: Bedside Glucose (Misc Panel) 158H 10/29/18 19:43: Bedside Glucose (Misc Panel) 147H 10/30/18 06:57: Bedside Glucose (Misc Panel) 145H FSBS Laboratory Tests Test 10/29/18 15:55 10/29/18 19:43 10/30/18 06:57 Range/Units Bedside Glucose (Misc Panel) 158 147 145 83-110 MG/DL Discharge Medications Scheduled Allopurinol (Allopurinol) 100 Mg Tab, 200 MG PO DAILY, (Reported) Aspirin (Aspirin) 81 Mg Tab.chew, 81 MG PO DAILY, (Reported) Calcium Carbonate/Vitamin D3 (Calcium 600 with Vit D Chew Tb) 1 Each Tab.chew, 1 CHW PO BID, (Reported) Digoxin (Digoxin) 125 Mcg Tab, 125 MCG PO DAILY, (Reported) Docusate Sodium (Docusate Sodium) 100 Mg Capsule, 200 MG PO QHS, (Reported) Dronedarone (Multaq) 400 Mg Tab, 400 MG PO BID, (Reported) Ferrous Gluconate (Ferrous Gluconate) 324 Mg Tab, 324 MG PO BID, (Reported) Fexofenadine HCl (Melinda Allergy) 180 Mg Tab, 180 MG PO DAILY, (Reported) Folic Acid (Folic Acid) 1 Mg Tab, 1 MG PO DAILY, (Reported) Insulin Glargine,Hum.rec.anlog (Basaglar Kwikpen U-100) 100 Unit/1 Ml Insuln.pen, 36 UNIT SC DAILY, (Reported) AT 0600 Levothyroxine Sodium (Levothyroxine Sodium) 125 Mcg Tab, 125 MCG PO DAILY, (Reported) AT 0600 Linagliptin (Tradjenta) 5 Mg Tablet, 5 MG PO DAILY, (Reported) Lovastatin (Lovastatin) 10 Mg Tab, 10 MG PO QHS, (Reported) Morphine Sulfate (Morphine Sulfate ER) 15 Mg Tabcr, 15 MG PO QHS, (Reported) Morphine Sulfate (Morphine Sulfate ER) 30 Mg Tablet.er, 30 MG PO DAILY, (Reported) Naloxegol Oxalate (Movantik) 25 Mg Tablet, 25 MG PO DAILY, (Reported) Gracey-3/Dha/Epa/Fish Oil (Fish Oil EC 1,000 mg Softgel) 1 Cap Cap, 1 CAP PO BID, (Reported) Omeprazole (Omeprazole) 20 Mg Cap, 20 MG PO DAILY, (Reported) Potassium Chloride (K-Tab ER) 10 Meq Tab, 20 MEQ PO BID, (Reported) Sennosides/Docusate Sodium (Docusate Sodium-Senna Tablet) 1 Each Tablet, 2 TAB PO DAILY, (Reported) Torsemide (Torsemide) 20 Mg Tab, 40 MG PO DAILY, (Reported) Scheduled PRN Acetaminophen (Acetaminophen) 325 Mg Tablet, 650 MG PO Q4H PRN for PAIN, (Reported) Acetaminophen with Codeine (Acetaminophen-Cod #3 Tablet) 1 Each Tablet, 1 TAB PO QID PRN for PAIN, (Reported) Melatonin (Melatonin) 10 Mg Cap, 10 MG PO QHS PRN for INSOMNIA, (Reported) Milk Of Magnesia (Milk of Magnesia) 2,400 Mg/10 Ml Oral.susp, 30 ML PO DAILY PRN for CONSTIPATION, (Reported) Nitroglycerin (Nitrostat) 0.4 Mg Subl, 0.4 MG SL NITRO PRN for CHEST PAIN, (Reported) Polyethylene Glycol 3350 (Miralax) 119 Gm Powder, 17 GM PO DAILY PRN for CONSTIPATION, (Reported) Allergies Coded Allergies: Beta-Blockers (Beta-Adrenergic Bloc (Verified Allergy, Unknown, 09/13/18) spironolactone (Verified Allergy, Unknown, 09/13/18) warfarin (Verified Allergy, Unknown, 09/13/18) indomethacin (Verified Adverse Reaction, Intermediate, HALLUCINATIONS, 09/13/18) ELDON ELMORE MD Oct 30, 2018 11:57
--- NOTE | 2018-10-31 20:30 | ECGEPIP ---
[facility] Test Date: 2018-10-27 Pat Name: TY MARIE Department: Room: [place] [address] Gender: Male Economic Specialist: VICKIE : 1935 Requested By: JEIMY MARQUEZ Order Number: [id number] Reading MD: Sammy Mcmahon Measurements Intervals [place] Rate: 60 P: 85 HI: 214 QRS: QRSD: 111 T: 136 QT: 437 QTc: 438 Interpretive Statements Underlying sinus versus atrially paced rhythm at 63 bpm First degree AV block. Leftward axis. Incomplete Left bundle branch block with lateral ST/T-wave abnormalities Probable LVH Rhythm converted from 10/14/15. Electronically Signed on 10-31-2018 20:30:34 EDT by Sammy Mcmahon
--- NOTE | 2018-11-04 12:23 | RO ---
DATE OF PROCEDURE: 10/18/2018 ATTENDING SURGEON: Luda Morales MD ASSISTANTS: Tona Sexton and Magda Coyle PREOPERATIVE DIAGNOSES: Gastrointestinal bleeding, chronic renal insufficiency. POSTOPERATIVE DIAGNOSES: Gastrointestinal bleeding, chronic renal insufficiency. PROCEDURE: Aortogram, selective celiac artery catheter placement with angiogram, selective superior mesenteric artery catheter placement with angiogram. INDICATION: The patient is an 82-year-old male with gastrointestinal bleeding, felt to be coming from the colon due to a colonoscopy, which showed bleeding in the splenic flexure. The patient will undergo an angiogram with possible coil embolization. ANESTHESIA: Local. ESTIMATED BLOOD LOSS: Minimal. FLUORO TIME: 7.0 minutes. COMPLICATIONS: None. DRAINS: None. SPECIMENS: None. IMPLANTS: None. DESCRIPTION OF PROCEDURE: The patient was taken to the angiography suite, placed supine on the angiography room table, and the right common femoral artery was cannulated, and aortogram was performed. The superior mesenteric artery was selectively cannulated and angiogram performed showing no evidence of bleeding. The celiac artery was selectively cannulated and an angiogram performed showing no evidence of bleeding. The catheters and wires were removed. A Mynx closure device was used to close the arteriotomy in the right common femoral artery with an additional 10 minutes of adjunctive pressure applied for hemostasis. Dressings were then applied. The patient tolerated the procedure well. All instrument, sponge, and needle counts were correct at the end of the case. There were no complications. Dr. Morales was present for and directed the entire case. The patient was transferred to the holding area and subsequently to the intensive care unit (ICU) in stable condition.
--- NOTE | 2018-11-04 14:18 | RO ---
DATE OF PROCEDURE: 10/24/2018 ATTENDING SURGEON: Luda Morales MD ASSISTANTS: Kelly Manriquez and Magda Coyle PREOPERATIVE DIAGNOSIS: Gastrointestinal bleeding. POSTOPERATIVE DIAGNOSIS: Gastrointestinal bleeding. PROCEDURE: Selective celiac artery catheter placement with angiogram, selective gastroduodenal artery catheter placement with angiogram, gastroduodenal artery coil embolization with coils. INDICATION: The patient is an 82-year-old male with a gastrointestinal bleed who underwent a tagged red cell scan, which shows the bleeding to be in the duodenum. The patient will undergo angiography with possible coil embolization. The risks, benefits, and alternative treatment options discussed with the patient. ANESTHESIA: Local with 10 mL of 2% lidocaine mixed with 0.5% Marcaine, Benadryl 50 mg. FLUORO TIME: 29.4 minutes. CONTRAST: 35 mL of Isovue-300. HEPARIN: 5000 units. PROTAMINE: 50 mg. COMPLICATIONS: None. DRAINS: None. SPECIMENS: None. DESCRIPTION OF PROCEDURE: The patient was taken to the angiography suite, placed supine on the angiography room table, and a cutdown was performed of the left brachial artery. A catheter was placed in the aorta and then into the celiac artery and an angiogram performed. The catheter was advanced into the gastroduodenal artery and angiogram performed showing a blush into the small bowel. The gastroduodenal artery was then coil embolized with multiple coils, and a completion angiogram showed no further blush filling into the small bowel. The catheters and wires were removed. The arteriotomy was closed using 6-0 Prolene suture. The incision was closed using 2-0 Vicryl and 3-0 Monocryl to approximate the skin. Dressings were applied. The patient tolerated the procedure well. All instrument, sponge, and needle counts were correct at the end of the case. There were no complications. Dr. Morales was present for and directed the entire case. The patient was transferred to the holding area and subsequently to the intensive care unit (ICU) in stable condition.
== END 2018-10-30 13:00 | DRG 378 ==
LOC: EDBD 09:48 → M ED 09:48 → M ED INP 12:38 → M PCU 15:34 → M MS5PR 10-29 22:20
PROVIDERS: ADMIT Internal Medicine; ATTEND Internal Medicine
PROC: 30233N1 Transfusion of Nonautologous Red Blood Cells into Peripheral Vein, Percutaneous Approach (ICD-10-PCS; 2018-10-13)
PROC: 0DJ08ZZ Inspection of Upper Intestinal Tract, Via Natural or Artificial Opening Endoscopic (ICD-10-PCS; 2018-10-14)
PROC: 0W3P8ZZ Control Bleeding in Gastrointestinal Tract, Via Natural or Artificial Opening Endoscopic (ICD-10-PCS; 2018-10-15)
PROC: B404YZZ Plain Radiography of Superior Mesenteric Artery using Other Contrast (ICD-10-PCS; principal; 2018-10-18)
PROC: B40BYZZ Plain Radiography of Other Intra-Abdominal Arteries using Other Contrast (ICD-10-PCS; 2018-10-18)
PROC: 3E1H88Z Irrigation of Lower GI using Irrigating Substance, Via Natural or Artificial Opening Endoscopic (ICD-10-PCS; 2018-10-20)
PROC: 0DJD8ZZ Inspection of Lower Intestinal Tract, Via Natural or Artificial Opening Endoscopic (ICD-10-PCS; 2018-10-20)
PROC: 04L23DZ Occlusion of Gastric Artery with Intraluminal Device, Percutaneous Approach (ICD-10-PCS; 2018-10-24)
PROC: 3E06305 Introduction of Other Antineoplastic into Central Artery, Percutaneous Approach (ICD-10-PCS; 2018-10-24)
DX: K92.2 Gastrointestinal hemorrhage, unspecified (principal); D62 Acute posthemorrhagic anemia; I50.32 Chronic diastolic (congestive) heart failure; L89.619 Pressure ulcer of right heel, unspecified stage; I48.0 Paroxysmal atrial fibrillation; E11.9 Type 2 diabetes mellitus without complications; J44.9 Chronic obstructive pulmonary disease, unspecified; J30.2 Other seasonal allergic rhinitis; M54.5 Low back pain; K64.8 Other hemorrhoids; K57.30 Diverticulosis of large intestine without perforation or abscess without bleeding; E03.9 Hypothyroidism, unspecified; G47.33 Obstructive sleep apnea (adult) (pediatric); M10.9 Gout, unspecified; Z87.891 Personal history of nicotine dependence; Z79.01 Long term (current) use of anticoagulants; Z79.82 Long term (current) use of aspirin; Z79.4 Long term (current) use of insulin; Z79.899 Other long term (current) drug therapy; Z79.891 Long term (current) use of opiate analgesic; Z88.8 Allergy status to other drugs, medicaments and biological substances; Z88.6 Allergy status to analgesic agent

== ENCOUNTER → 2018-11-22 | Outpatient (CLI) | payer MEDICARE, MEDICAID ==
[~2018-11-22] MED LIST changes: +MORP30TASA PO; +MOVA1TAB2 PO
--- NOTE | 2018-11-25 00:04 | ECWPNPC ---
PATIENT NAME: TY MARIE : 1935 GENDER: MALE VISIT DATE: 11/22/2018 DISCHARGE DATE: 11/22/18 1511 VISIT LOCKED DATE TIME: PHYSICIAN: DIONE PORTER RESOURCE: DIONE PORTER REASON FOR APPOINTMENT 1. BACK PAIN HISTORY OF PRESENT ILLNESS HISTORY OF PRESENT ILLNESS: 83 YEAR OLD MALE IN FOR CHRONIC PAIN FOLLOW UP. HIS PAIN IS LOCATED IN HIS LOW BACK. WHEN ASKED HE ADMITS THE MEDICATIONS ARE WORKING WELL AND HE DENIES MED SIDE EFFECTS AT THIS TIME. HE CURRENTLY RATES PAIN AT A 7/10. PAIN THE PATIENT DESCRIBES THE PAIN... FALL RISK SCREENING: SCREENING :NO FALLS REPORTED IN THE LAST YEAR CURRENT MEDICATIONS TAKING COLACE 200 CAPSULE 1 CAPSULE NEEDED ORALLY TWICE DAILY, NOTES: DUPLICATE TAKING LOVASTATIN 10 MG TABLET 1 TABLET WITH A MEAL ORALLY ONCE A DAY TAKING FERROUS GLUCONATE 324 (38 FE) MG TABLET ORALLY TAKING MULTAQ 400 MG TABLET 1 TABLET WITH MEALS ORALLY TWICE A DAY TAKING FISH OIL 1000 MG CAPSULE 1 CAPSULE ORALLY BID TAKING CALCIUM 600 MG TABLET 1TAB ORALLY BID TAKING LEVOTHYROXINE SODIUM 125 MCG TABLET 1 TABLET ON AN EMPTY STOMACH IN THE MORNING ORALLY ONCE A DAY TAKING CHELSEA ALLERGY 180 MG TABLET 1 TABLET ORALLY ONCE A DAY TAKING SENNA LAXATIVE 8.6 MG TABLET 2 TABLETS AT BEDTIME NEEDED ORALLY ONCE A DAY TAKING ASPIRIN EC 81 MG TABLET DELAYED RELEASE 1 TABLET ORALLY ONCE A DAY TAKING FOLIC ACID 1 MG TABLET 1 TABLET ORALLY ONCE A DAY TAKING DIGOXIN 125 MCG TABLET 1 TABLET ORALLY ONCE A DAY TAKING OMEPRAZOLE 20MG 20MG TABLET 1CAP ORAL DAILY TAKING TORSEMIDE 20 MG TABLET 2 TABS ORALLY DAILY AT 900 TAKING BASAGLAR KWIKPEN 100 UNIT/ML SOLUTION PEN-INJECTOR 36 UNITS SUBCUTANEOUS DAILY AT 600 TAKING ALLOPURINOL 100 MG TABLET 2 TABLET PO ONCE A DAY TAKING MORPHINE SULFATE ER 15 MG TABLET EXTENDED RELEASE 1 TABLET ORALLY 1 TAB PM MDD1 AT 2000 TAKING MS CONTIN 30 MG TABLET EXTENDED RELEASE 1 TABLET ORALLY DAILY/AM MDD1 900 TAKING MOVANTIK 25 MG TABLET 1 TABLET IN THE MORNING ORALLY ONCE A DAY TAKING POTASSIUM CHLORIDE 10 MEQ CAPSULE EXTENDED RELEASE 2 CAPSULE ORALLY TWICE A DAY TAKING MELATONIN 10 MG TABLET 1 TAB ORALLY ONCE DAILY TAKING MILK OF MAGNESIA 400 MG/5ML SUSPENSION 5 ML NEEDED ORALLY FOUR TIMES A DAY TAKING ACETAMINOPHEN-CODEINE #3 300-30 MG TABLET 1 TABLET NEEDED ORALLY EVERY 4 HRS TAKING ACETAMINOPHEN 325 MG CAPSULE 2 CAPSULE NEEDED ORALLY EVERY 4 HRS TAKING BISACODYL 10 MG SUPPOSITORY 1 SUPPOSITORY NEEDED RECTAL ONCE A DAY TAKING DISPOSABLE ENEMA 19-7GRAM/118ML 1 PER RECTUM PRN CONSTIPATION TAKING GLUCAGON EMERGENCY 1 MG KIT DIRECTED INJECTION TAKING MULTIVITAMINS TABLET 1TAB ORALLY DAILY NOT-TAKING TRADJENTA 5 MG TABLET 1 TABLET ORALLY ONCE A DAY AT 900 NOT-TAKING ELIQUIS 5MG TABLET 1TAB ORAL TWICE DAILY NOT-TAKING ACETAMINOPHEN-CODEINE #4 300-60 MG TABLET 1 TABLET NEEDED ORALLY Q8H PRN MDD3 NOT-TAKING NITROSTAT 0.4 MG TABLET SUBLINGUAL SUBLINGUAL DIRECTED NOT-TAKING MIRALAX SUSPENSION 17 GRAMS ORALLY AT HOUR OF SLEEP NOT-TAKING POLYETHYLENE GLYCOL POWDER 17MG Q OTHER DAY NOT-TAKING JANUVIA 50 MG TABLET 1 TAB ORALLY ONCE A DAY NOT-TAKING METFORMIN HCL 1000 MG TABLET 1 TABLET WITH MEALS ORALLY TWICE A DAY NOT-TAKING ACETAMINOPHEN 500 MG TABLET 1 TABLET NEEDED ORALLY EVERY 6 HRS PRN PAIN OR FEVER MDD=4 TAKE WITH TRAMADOL NOT-TAKING TRULICITY 0.75 MG/0.5ML SOLUTION PEN-INJECTOR 0.5 ML SUBCUTANEOUS WEEKLY NOT-TAKING METHOTREXATE 2.5 MG TABLET 7 TABS ORALLY EVERY WED NOT-TAKING SYSTANE 0.4-0.3 % SOLUTION 1 DROP INTO AFFECTED EYE NEEDED OPHTHALMIC 24 TIME(S) A DAY NOT-TAKING ONDANSETRON 4 MGS 1 TAB ORAL NEEDED FOR NAUSEA NOT-TAKING TORSEMIDE 20 MG TABLET 1 ORALLY AT 1400 DAILY NOT-TAKING TRIAMCINOLONE ACETONIDE 0.025 % CREAM 1 APPLICATION TO AFFECTED AREA EXTERNALLY NEEDED NOT-TAKING NYSTATIN [id number] UNIT/GM CREAM 1 APPLICATION TO AFFECTED AREA EXTERNALLY TWICE A DAY NOT-TAKING GUAIFENESIN-DM 100-10 MG/5ML SYRUP 10 ML NEEDED ORALLY EVERY 4 HRS NOT-TAKING TYLENOL WITH CODEINE #3 300-30 MG TABLET 1 TABLET NEEDED ORALLY EVERY 6 HRS NOT-TAKING DOCUSATE SODIUM 100 MG CAPSULE 1 CAPSULE ORALLY BID NOT-TAKING CALCIPOTRIENE 0.005 % OINTMENT 1 APPLICATION TO AFFECTED AREA EXTERNALLY BID FOR PSORASIS NOT-TAKING OXYCODONE-ACETAMINOPHEN 5-325 MG TABLET 1 TABLET NEEDED ORALLY EVERY 6 HRS PRN PAIN MDD=4 NOT-TAKING KETOCONAZOLE 2 % CREAM 1 APPLICATION TO AFFECTED AREA EXTERNALLY ONCE A DAY NOT-TAKING NORCO 10-325 MG TABLET 1 TABLET NEEDED ORALLY EVERY 6 HRS PRN PAIN MDD=4 NOT-TAKING FUROSEMIDE 40 MG TABLET 1 TABLET ORALLY DAILY IN THE AM, NOTES: IN AM NOT-TAKING HYDROCODONE-ACETAMINOPHEN 10-325 MG TABLET 1 TAB ORALLY EVERY 4- 6 HRSMDD4 NOT-TAKING LASIX 20 MG TABLET 1 TABLET ORALLY ONCE A DAY IN THE AFTERNOON, NOTES: IN AFTERNOON NOT-TAKING MECLIZINE HCL 25 MG TABLET CHEWABLE 1 TABLET ORALLY THREE TIMES A DAY PRN NOT-TAKING ZOLPIDEM TARTRATE 12.5 MG TABLET EXTENDED RELEASE 2 TABLET AT BEDTIME NEEDED ORALLY ONCE A DAY NOT-TAKING TAMSULOSIN HCL 0.4 MG CAPSULE 1 CAPSULE 30 MINUTES AFTER THE SAME MEAL EACH DAY ORALLY ONCE A DAY NOT-TAKING SPIRONOLACTONE 25 MG TABLET 1 TABLET ORALLY ONCE A DAY MEDICATION LIST REVIEWED AND RECONCILED WITH THE PATIENT PAST MEDICAL HISTORY BPH HYPERLIPIDEMIA DVT GOUT KIDNEY STONES PNEUMONIA HYPERTENSION CHF ? TB COPD HTN AFIB DM TYPE 2 HYPOTHYROID DRY EYES PSORIASIS INSOMNIA CHRONIC PAIN SYNDROME CONSTIPATION REBEKAH HEART FAILURE UNSPECIFIED UNSPECIFIED ANEMIA BLOODY STOOLS, LOWER GI BLEED ALLERGIES INDOCIN: HALLUCINATION - SIDE EFFECTS SURGICAL HISTORY TURP CATARACT CYSTOSCOPY SEVERAL LEFT ARM SURG AND TONSILLECTOMY DISTANT PAST LITHOTRIPSY COLONOSCOPY, FIXED GI BLEED FAMILY HISTORY FATHER: MOTHER: 2 BROTHER(S) , 2 SISTER(S) . 2 SON(S) , 4 DAUGHTER(S) . SOCIAL HISTORY GENERAL: TOBACCO USE ARE YOU A:FORMER SMOKER HOW LONG HAS IT BEEN SINCE YOU LAST SMOKED?> 10 YEARS PAIN CLINIC PFS, CLERGY, PUBLIC HEALTH REFERRALS PFS REFERRAL NEEDED?NO CLERGY REFERRAL NEEDED?NO PUBLIC HEALTH REFERRAL NEEDED?NO WAS THE PROVIDER NOTIFIED OF ANY PERTINENT INFO?YES HAS THE PATIENT BEEN EDUCATED REGARDING HIS/HER PLAN OF CARE?YES HAS THE PATIENT BEEN EDUCATED REGARDING PAIN, THE RISK FOR PAIN, THE IMPORTANCE OF EFFECTIVE PAIN MANAGEMENT, AND THE PAIN ASSESSMENT PROCESS?YES LATEX QUESTIONNAIRE LATEX ALLERGY : HAVE YOU EVER DEVELOPED ANY TYPE OF REACTION AFTER HANDLING LATEX PRODUCTS SUCH RUBBER GLOVES, CONDOMS, DIAPHRAGMS, BALLOONS, SOCKS, OR UNDERWEAR?NO LATEX ALLERGY : HAVE YOU EVER DEVELOPED ANY TYPE OF REACTION DURING OR AFTER DENTAL APPOINTMENT, VAGINAL/RECTAL EXAMINATION, SURGICAL PROCEDURE, OR ANY OTHER EXPOSURE?NO LATEX RISK : HAVE YOU EVER HAD ANY DIFFICULTY BREATHING OR HIVES AFTER EATING OR HANDLING ANY FRUITS, OR VEGETABLES; SUCH KIWI, BANANAS, STONE FRUITS, OR CHESTNUTSNO LATEX RISK : DO YOU HAVE A PREVIOUS PERSONAL HISTORY OF MORE THAN NINE SURGERIES, SPINA BIFIDA, OR REPEATED CATHERTIZATIONS? NO LATEX RISK : ARE YOU FREQUENTLY EXPOSED TO LATEX PRODUCTS IN YOUR OCCUPATION?NO DATE ASKED : 09/29/2018 OTHERS AT HOME: [place]IVES [place] THE [place]. ADVANCE DIRECTIVE ADVANCE DIRECTIVE DISCUSSED WITH PATIENT:YES HCP - MARITZA MARIE (DAUGHTER) [phone] ANABAPTISM [id number] SIKH NO QUAKER BELIEFS THAT WOULD IMPACT HEALTH CARE. LANGUAGE LANGUAGES SPOKEN:KAZAKH NEW PATIENT PAIN DIARY FROM 0-10, WHAT LEVEL IS YOUR PAIN TODAY?7 BMI CARE GOAL FOLLOW-UP BELOW NORMAL BMI FOLLOW-UPDIETARY EDUCATION FOR WEIGHT GAIN ALCOHOL SCREENING DID YOU HAVE A DRINK CONTAINING ALCOHOL IN THE PAST YEAR?NO POINTS0 INTERPRETATIONNEGATIVE RECREATIONAL DRUG USE DRUG USE?NO PATIENT DENIES ABUSE OR MISSUSED OF ANY MEDICATION. PATIENT DENIES USE OF ANY ILLEGAL SUBSTANCE INCLUDING MARIJUANA OR COCAINE. LEARNING BARRIERS / SPECIAL NEEDS HEARING IMPAIRED?YES :HEARING AIDES VISION IMPAIRED?YES :CORRECTIVE LENSES COGNITIVELY IMPAIRED?NO SPECIAL DEVICES?YES :WHEELCHAIR PATIENT IS NOT A CURRENT SMOKER OR DOES NOT ABUSE ALCOHOL.REVIEWED WITH PATIENT 02/23/18 1118 JS05/25/18 REVIEWED WITH PT. AD. HOSPITALIZATION/MAJOR DIAGNOSTIC PROCEDURE SURGERY RELATED REVIEW OF SYSTEMS REVIEWED BY: PROVIDER: AFSANEH LEE . CONSTITUTIONAL: ANY CHANGE IN YOUR MEDICAL CONDITION? NO . CHILLS NO . FEVER NO . INFECTION: DO YOU HAVE NEW INFECTIONS? NO . DO YOU HAVE HISTORY OF MRSA? YES, HX OF RIGHT BIG TOE . MUSCULOSKELETAL: ANY NEW PATTERNS OF PAIN OR NUMBNESS? NO . GASTROENTEROLOGY: ANY NEW CHANGE IN BOWEL CONTROL? NO . GENITOURINARY: ANY NEW CHANGE IN BLADDER CONTROL? NO . IS THERE A CHANCE YOU COULD BE ? NO . HEMATOLOGY/LYMPH: DO YOU TAKE ANY BLOOD THINNERS? (FOR EXAMPLE- COUMADIN, PLAVIX, AGGRENOX, PLATEL, PRADAXA, OR XARELTO) YES, ELIQUIS, BUT NOT LISTED ON HOME MED LIST PRESENTED FROM [facility], MAYBE TAKEN OFF OF MED? . WHEN WAS YOUR LAST DOSE? DATE: TIME: . NEUROLOGY: HAVE YOU FALLEN IN THE PAST 12 MONTHS? YES, PRIOR TO LAST VISIT . ANY NEW EXTREMITY NUMBNESS OR WEAKNESS? NO . CARDIOLOGY: DO YOU HAVE A PACEMAKER OR DEFIBRILLATOR? NO . RESPIRATORY: HAVE YOU BEEN SICK IN THE PAST WEEK? NO . FEVER NO . FLU LIKE SYMPTOMS? NO . COUGH NO . INTEGUMENTARY: DO YOU HAVE ANY RASHES OR OPEN SORES? NO . ALLERGIC/IMMUNO: ARE YOU ALLERGIC TO IV DYE? NO . ANY NEW ALLERGIES? NO . PSYCHIATRIC: DO YOU HAVE THOUGHTS OF HURTING YOURSELF OR SOMEONE ELSE? NO . ARE YOU ABUSED, NEGLECTED, OR IN AN UNSAFE ENVIRONMENT? NO . ENDOCRINOLOGY: ARE YOU DIABETIC? YES . OTHER: DO YOU NEED ANY PRESCRIPTIONS? NOT SURE . IF YES, PLEASE LIST: ____ . ANY NEW PROBLEMS WITH YOUR MEDICATIONS? NO . WHEN DID YOU LAST EAT? ____ . WHEN DID YOU LAST DRINK? ____ . WHAT DID YOU LAST DRINK? ____ . NAME OF PERSON DRIVING YOU HOME? ____ . DO YOU HAVE ANY OTHER QUESTIONS OR CONCERNS NO . VITAL SIGNS WT 174.4 LBS, HT 74", BMI 22.39 INDEX, BP 94/58 MM HG, REPEAT BP 101/61 RE-CHECK, HR 62 /MIN, RR 18 /MIN, TEMP 97.4 F, OXYGEN SAT % 96%, NA INITIALS SC 14:19, REVIEWED BY: EM. EXAMINATION GENERAL EXAMINATION: GENERAL APPEARANCE:NO ACUTE DISTRESS, WELL NOURISHED AND HYDRATED. LUNGS:CLEAR TO AUSCULTATION BILATERALLY, NO WHEEZES, RHONCHI, RALES. HEART:HRR WITH A MURMUR NOTED. ASSESSMENTS THORACIC BACK PAIN - M54.6 (PRIMARY) TREATMENT THORACIC BACK PAIN CLINICAL NOTES: 83 YEAR OLD MALE IN FOR FOLLOW UP RELATED TO CHRONIC LOW BACK PAIN. HE ADMITS THE MEDICATIONS ARE WORKING WELL. GIVEN PRESENTING SYMPTOMS AND RESULTS OF PHYSICAL EXAMINATION RECOMMENDED CONTINUATION OF CURRENT MEDICATION REGIMEN WITH FOLLOW UP IN 2 MONTHS. PATIENT HAS EXPRESSED UNDERSTANDING OF AND WAS IN AGREEMENT WITH TX PLAN. , ISTOP REGISTRY REVIEWED AND DEMONSTRATES COMPLLIANCE. (REF # [id number] ) BRINGS IN MEDICATIONS WHICH IS APPROPRIATE FOR WHAT WAS DISPENSED. RECENT URINE TOXICOLOGY REVIEWED. NO UNAUTHORIZED MEDICATIONS. NO ILLICIT SUBSTANCES AND PRESCRIBED MEDICATIONS WERE PRESENT. DISPOSITION & COMMUNICATION FOLLOW UP 2 MONTHS (REASON: THORACIC BACK PAIN ) ELECTRONICALLY SIGNED BY SRINIVASAN ZAMUDIO ON 11/23/2018 AT 03:57 PM EDT DISCLAIMER : THIS IS A VISIT SUMMARY EXTRACTED FROM THE [employer] CHART. IT IS NOT A COPY OF THE [employer] PROGRESS NOTE. MTDD
== END ==
LOC: M PAIN 14:15
PROVIDERS: ATTEND Family Medicine
DX: M54.6 Pain in thoracic spine (principal); N40.0 Benign prostatic hyperplasia without lower urinary tract symptoms; E78.5 Hyperlipidemia, unspecified; M10.9 Gout, unspecified; I11.0 Hypertensive heart disease with heart failure; I50.9 Heart failure, unspecified; J44.9 Chronic obstructive pulmonary disease, unspecified; I48.91 Unspecified atrial fibrillation; E11.9 Type 2 diabetes mellitus without complications; E03.9 Hypothyroidism, unspecified; L40.9 Psoriasis, unspecified; G47.00 Insomnia, unspecified; G89.4 Chronic pain syndrome; K59.00 Constipation, unspecified; G47.33 Obstructive sleep apnea (adult) (pediatric); D64.9 Anemia, unspecified; Z86.718 Personal history of other venous thrombosis and embolism; Z87.442 Personal history of urinary calculi; Z98.49 Cataract extraction status, unspecified eye; Z79.82 Long term (current) use of aspirin; Z79.891 Long term (current) use of opiate analgesic; Z79.899 Other long term (current) drug therapy; Z87.891 Personal history of nicotine dependence; Z88.8 Allergy status to other drugs, medicaments and biological substances

== ENCOUNTER → 2018-12-21 | Outpatient (REF) | payer MEDICARE, MEDICAID ==
[~2018-12-21] MED LIST changes: +GNP8.6TA PO; +INSULANT SC; -OMEP20CA3 PO; +OMEP20CA4 PO; +OYST500T11 PO; +POTA20TA6 PO
[2018-12-21 18:46] LABS: DIGOXIN LEVEL 0.4 NG/ML (0.5-2.0)
[2018-12-22 11:38] LABS: PERCENT SATURATION 21.2 % (19.7-50.0)
== END ==
LOC: M LAB REF 17:15
PROVIDERS: ATTEND Internal Medicine
DX: I48.0 Paroxysmal atrial fibrillation (principal)

== ENCOUNTER 2018-12-26 17:14 | Inpatient (IN) | payer MEDICARE, MEDICAID ==
[~2018-12-26] VITALS: Ht 188 cm; Wt 67.8 kg
[~2018-12-26 17:14] MED LIST changes: -GNP8.6TA PO; -INSULANT SC; -OYST500T11 PO; -POTA20TA6 PO
[2018-12-26] MEDS ORDERED: VITMTA PO (17:55)
[2018-12-26] MEDS ORDERED: GNP8.6TA PO (17:55)
[2018-12-26] MEDS ORDERED: OYST500T11 PO (17:55)
[2018-12-26] MEDS ORDERED: POTA20TA6 PO (17:55)
[2018-12-26] MEDS ORDERED: INSULANT SC (17:55)
[2018-12-26 18:07] LABS: BASO # 0.1 10^3/uL (0.0-0.2); BASO % 0.7 % (0.0-1.0); EOS # 0.6 10^3/uL (0.0-0.50); HEMATOCRIT 23.3 % (42.0-52.0); HEMOGLOBIN 7.6 g/dl (13.5-17.5); LYMPH # 2.3 10^3/uL (1.5-4.5); LYMPH % 22.7 % (24.0-44.0); MEAN CORPUSCULAR HEMOGLOBIN 31.5 pg (27.0-33.0); MEAN CORPUSCULAR HGB CONC 32.6 g/dl (32.0-36.5); MEAN CORPUSCULAR VOLUME 96.7 fl (80.0-96.0); MONO # 0.9 10^3/uL (0.0-0.8); MONO % 8.6 % (0.0-5.0); NEUTROPHILS % 60.1 % (36.0-66.0); PLATELET COUNT, AUTOMATED 156 10^3/uL (150-450); RED BLOOD COUNT 2.41 10^6/uL (4.30-6.10)
--- NOTE | 2018-12-26 18:13 | REP ---
Clinical: Weakness. Comparison: 10/27/2018. Findings: Mediastinum and cardiac silhouette are stable and mild cardiomegaly cannot be excluded. Lung wilson demonstrate diffuse chronic interstitial changes and fibrosis similar to prior examination. While subtle acute process cannot be excluded, there is no focal consolidation, obvious effusion or pneumothorax. Skeletal structures stable. Impression: Relatively chronic stable changes. No obvious focal consolidation or effusion. Electronically Signed by Thomas Landaverde MD 12/26/2018 06:04 P
[2018-12-26 18:35] LABS: BLOOD UREA NITROGEN 28 MG/DL (7-18); CALCIUM LEVEL 8.8 MG/DL (8.8-10.2); CARBON DIOXIDE LEVEL 28 MEQ/L (21-32); CHLORIDE LEVEL 103 MEQ/L (98-107); CK-MB VALUE MASS 1.1 NG/ML (<3.6); CPK CREATINE PHOSPHOKINASE 31 U/L (39-308); CREATININE FOR GFR 1.85 MG/DL (0.70-1.30); GLOMERULAR FILTRATION RATE 37.3 (>35); GLUCOSE, FASTING 133 MG/DL (70-100); MB/CK RELATIVE INDEX 3.55 (< OR =4); POTASSIUM SERUM 3.7 MEQ/L (3.5-5.1); SODIUM LEVEL 138 MEQ/L (136-145); TROPONIN I < 0.02 NG/ML (< 0.10)
[2018-12-26] MEDS ORDERED: GLUCAGON FOR INJ 1 MG VIAL (J1610) SC PRN (20:00)
[2018-12-26] MEDS ORDERED: DEXTROSE 50% 50 ML SYRINGE IV PRN (20:00)
[2018-12-26] MEDS ORDERED: GLUCOSE 4 GM CHEW TABLET PO PRN (20:00)
[2018-12-26] MEDS ORDERED: HumaLOG INSULIN (NovoLOG) PER UNIT SC SCH (21:00)
--- NOTE | 2018-12-26 21:01 | HPEPDOC ---
General Date of Admission Dec 26, 2018 at 19:48 Date of Service: Dec 26, 2018 Chief Complaint The patient is a 83-year-old male admitted with a reason for visit of Anthony Gib. Source: Patient, RN/, Old records Severity: Moderate Associated Symptoms: Weakness, Dizziness History of Present Illness 83 year old male from [facility] assisted living with PMH of GIB in September 2018 requiring 22 units of PRBC with colonoscopies x 2, first one found a red spot in splenic flexure which was clipped also diverticulosis and internal hemorrhoids, however continued to bleed so had angiogram of celiac artery and superior mesenteric artery 10/18 which did not show any bleeding. He continued to bleed so had a second colonoscopy which just showed clots through out the colon, then had a bleeding scan which was positive with a Bleeding pattern suggestive of proximal small intestine/ duodenal bleeding source underwent gastroduodenal artery embolization on 10/24 with stabilization of HH at mid 8s, CHF with preserved EF, diabetes, Moderate Aortic stenosis, Atrial fibrillation not on any anticoagulation, COPD not on oxygen , REBEKAH on CPAP presented to the ED for Dizziness. Patient was his usual self this morning when he woke up. At around noon he started feeling dizzy on his way to the bathroom which persisted. Was evaluated by the staff at the [facility] and felt that he was paler than usual so was sent to the ED for evaluation. In the ED he was found to have an Hb of 7.6 and rectal exam showed grossly hemo positive stools so he was admitted for sympt omatic Acute blood loss anemia due to GIB. Home Medications Scheduled Allopurinol (Allopurinol) 100 Mg Tab, 200 MG PO DAILY, (Reported) Aspirin (Aspirin) 81 Mg Tab.chew, 81 MG PO DAILY, (Reported) Calcium Carbonate/Vitamin D3 (Oyster Shell 500-Vit D3 200 Tb) 1 Each Tablet, 2 TAB PO QHS, (Reported) Digoxin (Digoxin) 125 Mcg Tab, 125 MCG PO DAILY, (Reported) Docusate Sodium (Docusate Sodium) 100 Mg Capsule, 200 MG PO QHS, (Reported) Dronedarone (Multaq) 400 Mg Tab, 400 MG PO BID, (Reported) Ferrous Gluconate (Ferrous Gluconate) 324 Mg Tab, 324 MG PO BID, (Reported) Fexofenadine HCl (Melinda Allergy) 180 Mg Tab, 180 MG PO DAILY, (Reported) Folic Acid (Folic Acid) 1 Mg Tab, 1 MG PO DAILY, (Reported) Insulin Glargine (Lantus) 100 Unit/1 Ml Vial, 36 UNITS SC DAILY, (Reported) Levothyroxine Sodium (Levothyroxine Sodium) 125 Mcg Tab, 125 MCG PO QAM, (Reported) AT 0600 Lovastatin (Lovastatin) 10 Mg Tab, 10 MG PO QHS, (Reported) Morphine Sulfate (Morphine Sulfate ER) 15 Mg Tabcr, 15 MG PO QHS, (Reported) Morphine Sulfate (Morphine Sulfate ER) 30 Mg Tablet.er, 30 MG PO DAILY, (Reported) Multivitamins (Thera M Plus Tablet) 1 Each Tablet, 1 TAB PO DAILY, (Reported) Naloxegol Oxalate (Movantik) 25 Mg Tablet, 25 MG PO DAILY, (Reported) Meally-3/Dha/Epa/Fish Oil (Fish Oil EC 1,000 mg Softgel) 1 Cap Cap, 1 CAP PO BID, (Reported) Omeprazole (Omeprazole) 20 Mg Cap, 20 MG PO DAILY, (Reported) Potassium Chloride (Potassium Chloride) 20 Meq Tab.er.prt, 20 MEQ PO BID, (Reported) Sennosides/Docusate Sodium (Docusate Sodium-Senna Tablet) 1 Each Tablet, 2 TAB PO DAILY, (Reported) Torsemide (Torsemide) 20 Mg Tab, 40 MG PO DAILY, (Reported) Scheduled PRN Acetaminophen (Acetaminophen) 325 Mg Tablet, 650 MG PO Q4H PRN for PAIN, (Reported) Acetaminophen with Codeine (Acetaminophen-Cod #3 Tablet) 1 Each Tablet, 1 TAB PO QID PRN for PAIN, (Reported) Melatonin (Melatonin) 10 Mg Cap, 10 MG PO QHS PRN for INSOMNIA, (Reported) Milk Of Magnesia (Milk of Magnesia) 2,400 Mg/10 Ml Oral.susp, 30 ML PO DAILY PRN for CONSTIPATION, (Reported) Nitroglycerin (Nitrostat) 0.4 Mg Subl, 0.4 MG SL NITRO PRN for CHEST PAIN, (Reported) Sennosides (Senna Lax) 8.6 Mg Tablet, 8.6 MG PO QHS PRN for CONSTIPATION, (Reported) Allergies Coded Allergies: Beta-Blockers (Beta-Adrenergic Bloc (Verified Allergy, Unknown, 09/13/18) spironolactone (Verified Allergy, Unknown, 09/13/18) warfarin (Verified Allergy, Unknown, 09/13/18) indomethacin (Verified Adverse Reaction, Intermediate, HALLUCINATIONS, 09/13/18) Past Medical History Medical History Massive GIB in September 2018 requiring 22 units of PRBC Source as determined by b lleeding scan proximal small bowel and had Gastroduodenal artery embolization. Moderate aortic stenosis, mild MR, mild TR, moderate pulmonary hypertension. He was evaluated by cardiology, and Dr. Mcmahon felt he was not a candidate for aortic valve repair/replacement. Rheumatic fever as a child Paroxysmal atrial fibrillation (PAF) Chronic back pain due to severe spinal stenosis Chronic Opiate use. Bilateral foot drop due to spinal stenosis and he wears bilateral ankle braces with a walker. HFpEF (LVEF 60-65%) 05/2018 COPD REBEKAH on CPAP GERD Gout Insulin Dependent DM Psoriasis DLP Hypothyroidism BPH Surgical History Lithotripsy x 2 TURP x 2 left arm reattached cataract surgery Esophageal dilatation Family History Significant Family History: No pertinent family hx Social History * Smoker: former Smoker, quit greater than 1 year Alcohol: Denies Drugs: denies A-FIB/CHADSVASC A-FIB History Current/History of A-Fib/PAF?: Yes Current PO Anticoag Therapy: No Review of Systems Constitutional: Reports: Weakness, Fatigue; Denies: Chills, Fever, Night Sweats Eyes: Denies: Pain, Vision change ENT: Denies: Head Aches, Ear Pain, Dysphagia Pulmonary: Denies: Dyspnea, Cough Cardiovascular: Reports: Lt Headedness; Denies: Chest Pain, Palpitations, Orthopnea, Paroxysmal Noc. Dyspnea Gastrointestinal: Denies: Nausea, Vomiting, Abdominal Pain, Diarrhea, Constipation, Melena, Hematochezia Genitourinary: Denies: Dysuria, Frequency, Incontinence, Retention Hematologic: Denies: Bruising, Bleeding Excessively Musculoskeletal: Reports: Back Pain Physical Examination General Exam: Positive: Alert, Cooperative, No Acute Distress Eye Exam: Positive: PERRLA, Conjunctiva & lids normal, EOMI; Negative: Sclera icteric ENT Exam: Positive: Atraumatic, Pharynx Normal Neck Exam: Positive: Supple, Other (bruit present bilaterall); Negative: JVD, thyromegaly Chest Exam: Positive: Diminished (at the bases), Other (fibrotic crackles at the bases); Negative: Rhonchi, Wheezing Heart Exam: Positive: Rate Normal, Regular Rhythm, Normal S1, Normal S2, Murmurs (systolic murmur heard all over the precordium); Negative: Rubs Telemetry: Positive: No significant arrhythmia Abdomen Exam: Positive: BS Hyperactive, Soft; Negative: Tenderness, Hepatospenomegaly Extremity Exam: Positive: Other (bilateral foot drop); Negative: Clubbing, Cyanosis, Edema Skin Exam: Positive: Nl turgor and temperature Neuro Exam: Positive: Normal Speech, Strength at 5/5 X4 ext, Normal Tone, Sensation Intact Psych Exam: Positive: Mental status NL, Memory Intact, Oriented x 3 Vital Signs Vital Signs Date Time Temp Pulse Resp B/P (MAP) Pulse Ox O2 Delivery O2 Flow Rate FiO2 12/26/18 19:01 99/58 (72) 12/26/18 19:00 77 14 96 Room Air 12/26/18 17:30 97.9 Laboratory Data Labs 24H Laboratory Tests 2 12/26/18 17:57: Immature Granulocyte % (Auto) 1.9, White Blood Count 10.0, Red Blood Count 2.41 L, Hemoglobin 7.6L, Hematocrit 23.3L, Mean Corpuscular Volume 96.7H, Mean Corpuscular Hemoglobin 31.5, Mean Corpuscular Hemoglobin Concent 32.6, Red Cell Distribution Width 17.5H, Platelet Count 156, Neutrophils (%) (Auto) 60.1, Lymphocytes (%) (Auto) 22.7L, Monocytes (%) (Auto) 8.6H, Eosinophils (%) (Auto) 6.0H, Basophils (%) (Auto) 0.7, Neutrophils # (Auto) 6.0, Lymphocytes # (Auto) 2.3, Monocytes # (Auto) 0.9H, Eosinophils # (Auto) 0.6H, Basophils # (Auto) 0.1, Nucleated Red Blood Cells % (auto) 0.3H, Urine Color YELLOW, Urine Appearance CLEAR, Urine pH 5.0, Urine Specific [place] 1.008, Urine Protein NEGATIVE, Urine Glucose (UA) NEGATIVE, Urine Ketones NEGATIVE, Urine Blood NEGATIVE, Urine Nitrite NEGATIVE, Urine Bilirubin NEGATIVE, Urine Urobilinogen 0.2, Urine Leukocyte Esterase NEGATIVE, Urine WBC (Auto) 0, Urine RBC (Auto) 1, Urine Hyaline Casts (Auto) 0, Urine Bacteria (Auto) NEGATIVE, Urine Squamous Epithelial Cells 0, Urine Mucus (Auto) SMALL, Urine Sperm (Auto) , Anion Gap 7L, Glomerular Filtration Rate 37.3, Blood Urea Nitrogen 28H, Creatinine 1.85H, Sodium Level 138, Potassium Level 3.7, Chloride Level 103, Carbon Dioxide Level 28, Calcium Level 8.8, Total Creatine Kinase 31L, Creatine Kinase MB 1.1, Creatine Kinase MB Relative Index 3.55, Troponin I < 0.02 CBC/BMP Laboratory Tests 12/26/18 17:57 Red Blood Count 2.41 L, Mean Corpuscular Volume 96.7 H, Mean Corpuscular Hemoglobin 31.5, Mean Corpuscular Hemoglobin Concent 32.6, Red Cell Distribution Width 17.5 H, Neutrophils (%) (Auto) 60.1, Lymphocytes (%) (Auto) 22.7 L, Monocytes (%) (Auto) 8.6 H, Eosinophils (%) (Auto) 6.0 H, Basophils (%) (Auto) 0.7, Neutrophils # (Auto) 6.0, Lymphocytes # (Auto) 2.3, Monocytes # (Auto) 0.9 H, Eosinophils # (Auto) 0.6 H, Basophils # (Auto) 0.1, Calcium Level 8.8, Total Creatine Kinase 31 L Assessment/Plan GIB with acute blood loss anemia. H/o Massive GIB in September 2018 requiring 22 units of PRBC Source as determined by bleeding scan proximal small bowel/ duodenum and had Gastroduodenal artery embolization. Hold ASA. will consult Vascular Spoke with GI recent procedure 2 colonoscopies and 1 endoscopy in September 2018 did not show any bleeding source so any further procedure at present would not give any more information If the patient starts bleeding briskly will need another bleeding scan and intervention by vascular 2 units prbc with lasix in between. HH q 6 hours. NPO pantoprazole BID. Symptomatic anemia will give 2 units PRBC and monitor HH and transfuse as needed ANTHONY possibly due to GIB will monitor for now will avoid fluid overload. Chronic hypotension as per patient and previous hospitalization records his SBps are mostly between 90s to 115s Bp is at baseline. Moderate aortic stenosis, mild MR, mild TR, moderate pulmonary hypertension. He was evaluated by cardiology, and Dr. Mcmahon felt he was not a candidate for aortic valve repair/replacement. H/o Rheumatic fever as a child Paroxysmal atrial fibrillation (PAF) Now in sinus rhythm on digoxin and Multaq will continue not on anticoagulation due to recent massive GIB Chronic back pain due to severe spinal stenosis with Bilateral foot drop due to spinal stenosis and he wears bilateral ankle braces with a walker. On Opiates HFpEF (LVEF 60-65%) 05/2018 continue torsemide. COPD no exacerbation REBEKAH on CPAP can use home CPAP when available GERD pantoprazole Gout continue allopurinol Insulin Dependent DM will place on sliding scale insulin with FS AC and HS will hold Levemir now as patient may be NPO after midnight for procedure. Psoriasis DLP statin Hypothyroidism synthroid BPH s/p TUPR x 2 no symptoms of LUTS. Plan / VTE VTE Prophylaxis Ordered?: Yes MARQUEZ FAN MD Dec 26, 2018 20:35
[2018-12-26 21:19] VITALS: BP 120/57
[2018-12-26] MEDS ORDERED: FUROSEMIDE 20 MG/2 ML VIAL (J1940) IV ONE (22:00)
[2018-12-26] MEDS: PANTOPRAZOLE 40MG INJ (PROTONIX) (C9113) IV SCH (22:01)
[2018-12-26] MEDS: MORPHINE 15 MG SA TAB PO SCH (22:01)
[2018-12-26] MEDS: FERROUS GLUCONATE 324 MG TAB PO SCH (22:02)
[2018-12-26] MEDS: SIMVASTATIN 10 MG TAB PO SCH (22:02)
[2018-12-26 23:30] VITALS: BP 101/58
[2018-12-26 23:45] VITALS: BP 101/61
[2018-12-27] VITALS (7 sets, daily range): BP systolic 97–105; BP diastolic 52–64
[2018-12-27 03:37] LABS: BASO # 0.1 10^3/uL (0.0-0.2); BASO % 0.8 % (0.0-1.0); EOS # 0.7 10^3/uL (0.0-0.50); EOS % 6.6 % (0.0-3.0); HEMATOCRIT 28.6 % (42.0-52.0); HEMOGLOBIN 9.4 g/dl (13.5-17.5); LYMPH % 19.6 % (24.0-44.0); MEAN CORPUSCULAR HEMOGLOBIN 31.3 pg (27.0-33.0); MEAN CORPUSCULAR HGB CONC 32.9 g/dl (32.0-36.5); MEAN CORPUSCULAR VOLUME 95.3 fl (80.0-96.0); MONO # 0.8 10^3/uL (0.0-0.8); MONO % 7.7 % (0.0-5.0); NEUTROPHILS # 6.5 10^3/uL (1.8-7.7); NEUTROPHILS % 63.4 % (36.0-66.0); PLATELET COUNT, AUTOMATED 138 10^3/uL (150-450); WHITE BLOOD COUNT 10.2 10^3/uL (4.0-10.0)
[2018-12-27 04:06] LABS: CALCIUM LEVEL 8.1 MG/DL (8.8-10.2); CREATININE FOR GFR 1.67 MG/DL (0.70-1.30); GLOMERULAR FILTRATION RATE 41.9 (>35); POTASSIUM SERUM 3.4 MEQ/L (3.5-5.1)
[2018-12-27] MEDS: LEVOTHYROXINE 125MCG TABLET (0.125MG) PO SCH (06:57)
[2018-12-27] MEDS ORDERED: HumaLOG INSULIN (NovoLOG) PER UNIT SC SCH ×2 (07:30→12:00)
[2018-12-27] MEDS: DRONEDARONE 400 MG TAB (MULTAQ) PO SCH ×2 (07:49→18:00)
[2018-12-27] MEDS: FERROUS GLUCONATE 324 MG TAB PO SCH ×2 (08:46→20:28)
[2018-12-27] MEDS: FOLIC ACID 1 MG TAB PO SCH (08:46)
[2018-12-27] MEDS: ALLOPURINOL 100 MG TAB PO SCH (08:46)
[2018-12-27] MEDS: DIGOXIN 0.125 MG TAB PO SCH (08:47)
[2018-12-27] MEDS: TORSEMIDE 20 MG TAB PO SCH (08:54)
[2018-12-27] MEDS: PANTOPRAZOLE 40MG INJ (PROTONIX) (C9113) IV SCH ×2 (08:54→20:28)
[2018-12-27] MEDS: POTASSIUM CHLORIDE 10 MEQ SR TABLET PO SCH (08:54)
[2018-12-27] MEDS: MORPHINE 30 MG SA TAB PO SCH (08:59)
[2018-12-27 09:07] LABS: HEMATOCRIT 28.8 % (42.0-52.0); HEMOGLOBIN 9.6 g/dl (13.5-17.5)
[2018-12-27] MEDS ORDERED: SLF 3 ML SYR IV PRN (11:15)
[2018-12-27] MEDS: SLF 3 ML SYR IV SCH ×2 (11:48→22:11)
--- NOTE | 2018-12-27 12:21 | CR.PDOC ---
General Date of Consultation: Dec 27, [address] Morales HPI: 83year oldM from [facility] with h/o GIB in September 2018 requiring 22 units of PRBC with colonoscopies x 2, first one found a red spot in splenic flexure which was clipped also diverticulosis and internal hemorrhoids, however continued to bleed so had angiogram of celiac artery and superior mesenteric artery 10/18 which did not show any bleeding. He continued to bleed so had a second colonoscopy which just showed clots through out the colon, then had a bleeding scan which was positive with a Bleeding pattern suggestive of proximal small intestine/ duodenal bleeding source underwent gastroduodenal artery embolization on 10/24 with stabilization. The pt was readmitted 12/26/18 with GIB. Vascular surgery consulted. Denies any Headache, Chest Pain, Shortness of breath, cough, palpitations, abdominal pain, N/V/D or changes in bladder habits. Medical History GIB in September 2018 requiring 22 units of PRBC Source as determined by bleeding scan proximal small bowel and had Gastroduodenal artery embolization. Moderate aortic stenosis, mild MR, mild TR, moderate pulmonary hypertension. Evaluated by cardiology, and Dr. Mcmahon felt he was not a candidate for aortic valve repair/replacement. Rheumatic fever as a child PAF. No AC currently. Chronic back pain due to severe spinal stenosis Chronic Opiate use. Bilateral foot drop due to spinal stenosis and he wears bilateral ankle braces with a walker. HFpEF (LVEF 60-65%) 05/2018 COPD REBEKAH on CPAP GERD Gout Insulin Dependent DM Psoriasis DLP Hypothyroidism BPH Surgical History Lithotripsy x 2 TURP x 2 left arm reattached cataract surgery Esophageal dilatation SOCHX: Tobacco use: former smoker ETOH: denies ROS: As noted in HPI, otherwise 11pt ROS of systems reviewed and remarkable for chronic RLE wound followed by Dr Berry. PE: GEN: 83yoM, appears stated age. Alert and oriented x 3. Pleasant, interactive. HEENT: Normocephalic, atraumatic. PSclera are nonicteric. Conjunctiva without injection. Moist mucous membranes. CHEST: Regular rate and rhythm, +S1, +S2 LUNGS: Clear to auscultation bilaterally. No wheezes, rales, or rhonchi. Breathing appears symmetric and easy. ABD: Round, soft, non-tender, non-distended. +Bowel sounds throughout. No rebound or guarding. No costovertebral angle tenderness. EXT: No lower extremity edema appreciated. SKIN: Fisher, dry, warm. No rashes. NEURO: Alert and oriented x 3. Cranial nerves III-XII are intact. No focal deficits appreciated. A&P: 1. GIB. gastroduodenal artery embolization on 10/[address] Morales. S/P 2 u PRBC 12/26/18. Hgb this AM 9.6. Continue to monitor for now. Monitor for contd bleeding, monitor need for repeat angiogram. Consider GI Clt if needed. Vital Signs/I&O Vital Signs Date Time Temp Pulse Resp B/P (MAP) Pulse Ox O2 Delivery O2 Flow Rate FiO2 12/27/18 08:59 20 12/27/18 08:47 68 12/27/18 08:00 98.2 102/59 (73) 95 12/26/18 21:00 Room Air I&O- Last 24 Hours up to 6 AM 12/27/18 06:00 Intake Total 718 ml Output Total 1350 ml Balance -632 ml Laboratory Data Labs 24H Laboratory Tests 2 12/26/18 17:57: Immature Granulocyte % (Auto) 1.9, White Blood Count 10.0, Red Blood Count 2.41L, Hemoglobin 7.6L, Hematocrit 23.3L, Mean Corpuscular Volume 96.7H, Mean Corpuscular Hemoglobin 31.5, Mean Corpuscular Hemoglobin Concent 32.6, Red Cell Distribution Width 17.5H, Platelet Count 156, Neutrophils (%) (Auto) 60.1, Lymphocytes (%) (Auto) 22.7L, Monocytes (%) (Auto) 8.6H, Eosinophils (%) (Auto) 6.0H, Basophils (%) (Auto) 0.7, Neutrophils # (Auto) 6.0, Lymphocytes # (Auto) 2.3, Monocytes # (Auto) 0.9H, Eosinophils # (Auto) 0.6H, Basophils # (Auto) 0.1, Nucleated Red Blood Cells % (auto) 0.3H, Urine Color YELLOW, Urine Appearance CLEAR, Urine pH 5.0, Urine Specific [place] 1.008, Urine Protein NEGATIVE, Urine Glucose (UA) NEGATIVE, Urine Ketones NEGATIVE, Urine Blood NEGATIVE, Urine Nitrite NEGATIVE, Urine Bilirubin NEGATIVE, Urine Urobilinogen 0.2, Urine Leukocyte Esterase NEGATIVE, Urine WBC (Auto) 0, Urine RBC (Auto) 1, Urine Hyaline Casts (Auto) 0, Urine Bacteria (Auto) NEGATIVE, Urine Squamous Epithelial Cells 0, Urine Mucus (Auto) SMALL, Urine Sperm (Auto) , Anion Gap 7L, Glomerular Filtration Rate 37.3, Blood Urea Nitrogen 28H, Creatinine 1.85H, Sodium Level 138, Potassium Level 3.7, Chloride Level 103, Carbon Dioxide Level 28, Calcium Level 8.8, Total Creatine Kinase 31L, Creatine Kinase MB 1.1, Creatine Kinase MB Relative Index 3.55, Troponin I < 0.02 12/26/18 22:00: Bedside Glucose (Misc Panel) 152H 12/27/18 03:31: Immature Granulocyte % (Auto) 1.9, White Blood Count 10.2H, Red Blood Count 3.00L, Hemoglobin 9.4L, Hematocrit 28.6L, Mean Corpuscular Volume 95.3, Mean Corpuscular Hemoglobin 31.3, Mean Corpuscular Hemoglobin Concent 32.9, Red Cell Distribution Width 17.8H, Platelet Count 138L, Neutrophils (%) (Auto) 63.4, Lymphocytes (%) (Auto) 19.6L, Monocytes (%) (Auto) 7.7H, Eosinophils (%) (Auto) 6.6H, Basophils (%) (Auto) 0.8, Neutrophils # (Auto) 6.5, Lymphocytes # (Auto) 2.0, Monocytes # (Auto) 0.8, Eosinophils # (Auto) 0.7H, Basophils # (Auto) 0.1, Nucleated Red Blood Cells % (auto) 0.2H, Anion Gap 6L, Glomerular Filtration Rate 41.9, Blood Urea Nitrogen 28H, Creatinine 1.67H, Sodium Level 138, Potassium Level 3.4L, Chloride Level 104, Carbon Dioxide Level 28, Calcium Level 8.1L, Digoxin Level 0.5 CBC/BMP Laboratory Tests 12/26/18 17:57 Red Blood Count 2.41 L, Mean Corpuscular Volume 96.7 H, Mean Corpuscular Hemoglobin 31.5, Mean Corpuscular Hemoglobin Concent 32.6, Red Cell Distribution Width 17.5 H, Neutrophils (%) (Auto) 60.1, Lymphocytes (%) (Auto) 22.7 L, Monocytes (%) (Auto) 8.6 H, Eosinophils (%) (Auto) 6.0 H, Basophils (%) (Auto) 0.7, Neutrophils # (Auto) 6.0, Lymphocytes # (Auto) 2.3, Monocytes # (Auto) 0.9 H, Eosinophils # (Auto) 0.6 H, Basophils # (Auto) 0.1, Calcium Level 8.8, Total Creatine Kinase 31 L 12/27/18 03:31 Red Blood Count 3.00 L, Mean Corpuscular Volume 95.3, Mean Corpuscular Hemoglobin 31.3, Mean Corpuscular Hemoglobin Concent 32.9, Red Cell Distribution Width 17.8 H, Neutrophils (%) (Auto) 63.4, Lymphocytes (%) (Auto) 19.6 L, Monocytes (%) (Auto) 7.7 H, Eosinophils (%) (Auto) 6.6 H, Basophils (%) (Auto) 0.8, Neutrophils # (Auto) 6.5, Lymphocytes # (Auto) 2.0, Monocytes # (Auto) 0.8, Eosinophils # (Auto) 0.7 H, Basophils # (Auto) 0.1, Calcium Level 8.1 L 12/27/18 08:40 Allergies Coded Allergies: Beta-Blockers (Beta-Adrenergic Bloc (Verified Allergy, Unknown, 09/13/18) spironolactone (Verified Allergy, Unknown, 09/13/18) warfarin (Verified Allergy, Unknown, 09/13/18) indomethacin (Verified Adverse Reaction, Intermediate, HALLUCINATIONS, 09/13/18) Home Medications Scheduled Allopurinol (Allopurinol) 100 Mg Tab, 200 MG PO DAILY, (Reported) Aspirin (Aspirin) 81 Mg Tab.chew, 81 MG PO DAILY, (Reported) Calcium Carbonate/Vitamin D3 (Oyster Shell 500-Vit D3 200 Tb) 1 Each Tablet, 2 TAB PO QHS, (Reported) Digoxin (Digoxin) 125 Mcg Tab, 125 MCG PO DAILY, (Reported) Docusate Sodium (Docusate Sodium) 100 Mg Capsule, 200 MG PO QHS, (Reported) Dronedarone (Multaq) 400 Mg Tab, 400 MG PO BID, (Reported) Ferrous Gluconate (Ferrous Gluconate) 324 Mg Tab, 324 MG PO BID, (Reported) Fexofenadine HCl (Melinda Allergy) 180 Mg Tab, 180 MG PO DAILY, (Reported) Folic Acid (Folic Acid) 1 Mg Tab, 1 MG PO DAILY, (Reported) Insulin Glargine (Lantus) 100 Unit/1 Ml Vial, 36 UNITS SC DAILY, (Reported) Levothyroxine Sodium (Levothyroxine Sodium) 125 Mcg Tab, 125 MCG PO QAM, (Reported) AT 0600 Lovastatin (Lovastatin) 10 Mg Tab, 10 MG PO QHS, (Reported) Morphine Sulfate (Morphine Sulfate ER) 15 Mg Tabcr, 15 MG PO QHS, (Reported) Morphine Sulfate (Morphine Sulfate ER) 30 Mg Tablet.er, 30 MG PO DAILY, (Reported) Multivitamins (Thera M Plus Tablet) 1 Each Tablet, 1 TAB PO DAILY, (Reported) Naloxegol Oxalate (Movantik) 25 Mg Tablet, 25 MG PO DAILY, (Reported) Robert-3/Dha/Epa/Fish Oil (Fish Oil EC 1,000 mg Softgel) 1 Cap Cap, 1 CAP PO BID, (Reported) Omeprazole (Omeprazole) 20 Mg Cap, 20 MG PO DAILY, (Reported) Potassium Chloride (Potassium Chloride) 20 Meq Tab.er.prt, 20 MEQ PO BID, (Reported) Sennosides/Docusate Sodium (Docusate Sodium-Senna Tablet) 1 Each Tablet, 2 TAB PO DAILY, (Reported) Torsemide (Torsemide) 20 Mg Tab, 40 MG PO DAILY, (Reported) Scheduled PRN Acetaminophen (Acetaminophen) 325 Mg Tablet, 650 MG PO Q4H PRN for PAIN, (Reported) Acetaminophen with Codeine (Acetaminophen-Cod #3 Tablet) 1 Each Tablet, 1 TAB PO QID PRN for PAIN, (Reported) Melatonin (Melatonin) 10 Mg Cap, 10 MG PO QHS PRN for INSOMNIA, (Reported) Milk Of Magnesia (Milk of Magnesia) 2,400 Mg/10 Ml Oral.susp, 30 ML PO DAILY PRN for CONSTIPATION, (Reported) Nitroglycerin (Nitrostat) 0.4 Mg Subl, 0.4 MG SL NITRO PRN for CHEST PAIN, (Reported) Sennosides (Senna Lax) 8.6 Mg Tablet, 8.6 MG PO QHS PRN for CONSTIPATION, (Reported) Giovanna Batista Dec 27, 2018 12:21
[2018-12-27 14:24] LABS: HEMATOCRIT 28.9 % (42.0-52.0); HEMOGLOBIN 9.8 g/dl (13.5-17.5)
--- NOTE | 2018-12-27 17:01 | IPNPDOC ---
Subjective Date Seen The patient was seen on 12/27/18. Time of service 10 AM Subjective Chief Complaint/HPI dizziness Events since last encounter The patient reports that his dizziness is generally resolved, he is asking when he can eat. Objective Physical Examination General Exam: Positive: Alert, Cooperative, No Acute Distress Eye Exam: Positive: PERRLA, Conjunctiva & lids normal, EOMI ENT Exam: Positive: Atraumatic, Pharynx Normal Chest Exam: Positive: Clear to auscultation, Other (fibrotic crackles at the bases); Negative: Rhonchi, Wheezing Heart Exam: Positive: Rate Normal, Regular Rhythm, Normal S1, Normal S2, Murmurs (systolic murmur heard all over the precordium); Negative: Rubs Telemetry: Positive: No significant arrhythmia Abdomen Exam: Positive: BS Hyperactive, Soft (not tender) Extremity Exam: Positive: Other (bilateral foot drop); Negative: Clubbing, Cyanosis, Edema Skin Exam: Positive: Nl turgor and temperature Neuro Exam: Positive: Normal Speech, Strength at 5/5 X4 ext, Normal Tone, Sensation Intact Psych Exam: Positive: Mental status NL, Memory Intact Assessment /Plan Assessment Mr. Fish is an 83-year-old male with a past medical history of GI bleed requiring embolization of one of the gastroduodenal arteries , moderate aortic stenosis, moderate pulmonary hypertension, history of rheumatic fever as a child, paroxysmal atrial fibrillation, chronic back pain due to spinal stenosis, chronic diastolic congestive heart failure, COPD, GERD, gout, insulin-dependent diabetes, hypothyroidism, dyslipidemia, BPH, and psoriasis who will be admitted for evaluation of symptomatic anemia. 1. Symptomatic anemia. Symptom was dizziness. Hemoccult was positive in the ED Hemoglobin was 7.6 on admission and has increased to 9.8 after noon after 2 units of PRBCs. Per Dr. Franco's notes she [facility] who recommended a vascular surgery eval, and another bleeding scan if the patient begins bleeding again briskly The patient was evaluated by vascular who recommended conservative measures for now. Plan: Continue telemetry, PPI, serial H&H, advanced to clear liquid diet, c/w iron supplement 2. ANTHONY Possibly prerenal. Resolving Plan: Plan continue to monitor BMP, will order IV fluids right now history of heart failure. 3. Chronic hypertension./ Chronic diastolic congestive heart failure. Clinically compensated. Blood pressure is controlled Plan: continue with torsemide, follow-up ins and outs and daily weights 4. Paroxysmal A. fib. Plan: continue with digoxin, Multaq 6. Spinal stenosis. As a result, he has severe back pain and foot drop. Plan: Continue home regimen of opiates. 7.COPD Stable. Plan albuterol when necessary 9. REBEKAH. Plan: Nocturnal CPAP. 11. Gout. Stable. Plan continue with allopurinol. 12. Insulin-dependent diabetes mellitus. A1c is 6.9% in Jun Plan start Lantus 15 units daily tommorow AM (home dose 36 units daily) / c/w sliding scale insulin / f/u repeat A1c 13.Hypothyroidism. Continue with levothyroxine. 15 Dyslipidemia. Plan continue with statins DVT px w SCDs Dispo: pending clinical course Plan/VTE VTE Prophylaxis Ordered?: Yes VS, I&O, 24H, Fishbone Vital Signs/I&O Vital Signs Date Time Temp Pulse Resp B/P (MAP) Pulse Ox O2 Delivery O2 Flow Rate FiO2 12/27/18 12:00 97.5 95 17 101/58 (72) 95 12/26/18 21:00 Room Air I&O- Last 24 Hours up to 6 AM 12/27/18 06:00 Intake Total 718 ml Output Total 1350 ml Balance -632 ml Laboratory Data 24H LABS Laboratory Tests 2 12/26/18 17:57: Immature Granulocyte % (Auto) 1.9, White Blood Count 10.0, Red Blood Count 2.41L, Hemoglobin 7.6L, Hematocrit 23.3L, Mean Corpuscular Volume 96.7H, Mean Corpuscular Hemoglobin 31.5, Mean Corpuscular Hemoglobin Concent 32.6, Red Cell Distribution Width 17.5H, Platelet Count 156, Neutrophils (%) (Auto) 60.1, Lymphocytes (%) (Auto) 22.7L, Monocytes (%) (Auto) 8.6H, Eosinophils (%) (Auto) 6.0H, Basophils (%) (Auto) 0.7, Neutrophils # (Auto) 6.0, Lymphocytes # (Auto) 2.3, Monocytes # (Auto) 0.9H, Eosinophils # (Auto) 0.6H, Basophils # (Auto) 0.1, Nucleated Red Blood Cells % (auto) 0.3H, Urine Color YELLOW, Urine Appearance CLEAR, Urine pH 5.0, Urine Specific [place] 1.008, Urine Protein NEGATIVE, Urine Glucose (UA) NEGATIVE, Urine Ketones NEGATIVE, Urine Blood NEGATIVE, Urine Nitrite NEGATIVE, Urine Bilirubin NEGATIVE, Urine Urobilinogen 0.2, Urine Leukocyte Esterase NEGATIVE, Urine WBC (Auto) 0, Urine RBC (Auto) 1, Urine Hyaline Casts (Auto) 0, Urine Bacteria (Auto) NEGATIVE, Urine Squamous Ep ithelial Cells 0, Urine Mucus (Auto) SMALL, Urine Sperm (Auto) , Anion Gap 7L, Glomerular Filtration Rate 37.3, Blood Urea Nitrogen 28H, Creatinine 1.85H, Sodium Level 138, Potassium Level 3.7, Chloride Level 103, Carbon Dioxide Level 28, Calcium Level 8.8, Total Creatine Kinase 31L, Creatine Kinase MB 1.1, Creatine Kinase MB Relative Index 3.55, Troponin I < 0.02 12/26/18 22:00: Bedside Glucose (Misc Panel) 152H 12/27/18 03:31: Immature Granulocyte % (Auto) 1.9, White Blood Count 10.2H, Red Blood Count 3.00L, Hemoglobin 9.4L, Hematocrit 28.6L, Mean Corpuscular Volume 95.3, Mean Corpuscular Hemoglobin 31.3, Mean Corpuscular Hemoglobin Concent 32.9, Red Cell Distribution Width 17.8H, Platelet Count 138L, Neutrophils (%) (Auto) 63.4, Lymphocytes (%) (Auto) 19.6L, Monocytes (%) (Auto) 7.7H, Eosinophils (%) (Auto) 6.6H, Basophils (%) (Auto) 0.8, Neutrophils # (Auto) 6.5, Lymphocytes # (Auto) 2.0, Monocytes # (Auto) 0.8, Eosinophils # (Auto) 0.7H, Basophils # (Auto) 0.1, Nucleated Red Blood Cells % (auto) 0.2H, Anion Gap 6L, Glomerular Filtration R ate 41.9, Blood Urea Nitrogen 28H, Creatinine 1.67H, Sodium Level 138, Potassium Level 3.4L, Chloride Level 104, Carbon Dioxide Level 28, Calcium Level 8.1L, Digoxin Level 0.5 12/27/18 11:50: Bedside Glucose (Misc Panel) 149H CBC/BMP Laboratory Tests 12/26/18 17:57 Red Blood Count 2.41 L, Mean Corpuscular Volume 96.7 H, Mean Corpuscular Hemoglobin 31.5, Mean Corpuscular Hemoglobin Concent 32.6, Red Cell Distribution Width 17.5 H, Neutrophils (%) (Auto) 60.1, Lymphocytes (%) (Auto) 22.7 L, Monocytes (%) (Auto) 8.6 H, Eosinophils (%) (Auto) 6.0 H, Basophils (%) (Auto) 0.7, Neutrophils # (Auto) 6.0, Lymphocytes # (Auto) 2.3, Monocytes # (Auto) 0.9 H, Eosinophils # (Auto) 0.6 H, Basophils # (Auto) 0.1, Calcium Level 8.8, Total Creatine Kinase 31 L 12/27/18 03:31 Red Blood Count 3.00 L, Mean Corpuscular Volume 95.3, Mean Corpuscular Hemoglobin 31.3, Mean Corpuscular Hemoglobin Concent 32.9, Red Cell Distribution Width 17.8 H, Neutrophils (%) (Auto) 63.4, Lymphocytes (%) (Auto) 19.6 L, Monocytes (%) (Auto) 7.7 H, Eosinophils (%) (Auto) 6.6 H, Basophils (%) (Auto) 0.8, Neutrophils # (Auto) 6.5, Lymphocytes # (Auto) 2.0, Monocytes # (Auto) 0.8, Eosinophils # (Auto) 0.7 H, Basophils # (Auto) 0.1, Calcium Level 8.1 L 12/27/18 08:40 12/27/18 14:12 SETH DSOUZA MD Dec 27, 2018 17:00
[2018-12-27] MEDS ORDERED: ALBUTEROL SULFATE 2.5 MG/0.5 ML INH NEB SOLN NEB PRN (17:15)
[2018-12-27] MEDS: HumaLOG INSULIN (NovoLOG) PER UNIT SC SCH ×2 (18:42→20:29)
[2018-12-27] MEDS ORDERED: ACETAMINOPHEN 650MG ER TAB (TYLENOL ARTHRITIS) PO PRN (18:45)
--- NOTE | 2018-12-27 19:33 | ECGEPIP ---
[facility] - ED Test Date: 2018-12-26 Pat Name: TY MARIE Department: Room: [place] [address] Gender: Male Icu Clerk: : [id number] Requested By: NELL MATTSON Order Number: [id number] Reading MD: Peggy Alvarez Measurements Intervals [place] Rate: 77 P: IA: 0 QRS: -26 QRSD: 112 T: 80 QT: 411 QTc: 467 Interpretive Statements ATRIAL FIBRILLATION POSSIBLE LATERAL MYOCARDIAL INFARCTION, PROBABLY OLD ABNORMAL RHYTHM ECG NSTTW abnormalities NO PRIOR Electronically Signed on 12-27-2018 19:32:43 EDT by Peggy Alvarez
[2018-12-27] MEDS: SIMVASTATIN 10 MG TAB PO SCH (20:28)
[2018-12-27] MEDS: MORPHINE 15 MG SA TAB PO SCH (20:29)
[2018-12-27] MEDS: ACETAMINOPHEN 500 MG TAB PO PRN (20:54)
[2018-12-27 23:48] LABS: HEMATOCRIT 29.5 % (42.0-52.0); HEMOGLOBIN 9.9 g/dl (13.5-17.5)
[2018-12-28 04:00] VITALS: BP 126/62
[2018-12-28 04:25] LABS: BASO # 0.1 10^3/uL (0.0-0.2); BASO % 0.8 % (0.0-1.0); EOS # 0.7 10^3/uL (0.0-0.50); EOS % 8.1 % (0.0-3.0); HEMATOCRIT 33.4 % (42.0-52.0); LYMPH # 2.1 10^3/uL (1.5-4.5); LYMPH % 24.1 % (24.0-44.0); MEAN CORPUSCULAR HEMOGLOBIN 31.7 pg (27.0-33.0); MEAN CORPUSCULAR HGB CONC 32.9 g/dl (32.0-36.5); MEAN CORPUSCULAR VOLUME 96.3 fl (80.0-96.0); MONO # 0.8 10^3/uL (0.0-0.8); MONO % 8.8 % (0.0-5.0); NEUTROPHILS # 4.9 10^3/uL (1.8-7.7); NEUTROPHILS % 56.9 % (36.0-66.0); PLATELET COUNT, AUTOMATED 160 10^3/uL (150-450); RED BLOOD COUNT 3.47 10^6/uL (4.30-6.10); WHITE BLOOD COUNT 8.5 10^3/uL (4.0-10.0)
[2018-12-28 05:01] LABS: CALCIUM LEVEL 9.2 MG/DL (8.8-10.2); CREATININE FOR GFR 1.57 MG/DL (0.70-1.30); POTASSIUM SERUM 3.4 MEQ/L (3.5-5.1)
[2018-12-28] MEDS: SLF 3 ML SYR IV SCH ×3 (06:40→22:58)
[2018-12-28] MEDS: LEVOTHYROXINE 125MCG TABLET (0.125MG) PO SCH (06:40)
[2018-12-28 08:00] VITALS: BP 156/84
[2018-12-28] MEDS: FERROUS GLUCONATE 324 MG TAB PO SCH ×2 (08:41→20:33)
[2018-12-28] MEDS: ALLOPURINOL 100 MG TAB PO SCH (08:41)
[2018-12-28] MEDS: TORSEMIDE 20 MG TAB PO SCH (08:41)
[2018-12-28] MEDS: DRONEDARONE 400 MG TAB (MULTAQ) PO SCH ×2 (08:42→17:32)
[2018-12-28] MEDS: DIGOXIN 0.125 MG TAB PO SCH (08:42)
[2018-12-28] MEDS: MORPHINE 30 MG SA TAB PO SCH (08:42)
[2018-12-28] MEDS: POTASSIUM CHLORIDE 10 MEQ SR TABLET PO SCH (08:42)
[2018-12-28] MEDS: FOLIC ACID 1 MG TAB PO SCH (08:42)
[2018-12-28] MEDS: HumaLOG INSULIN (NovoLOG) PER UNIT SC SCH ×4 (08:43→20:33)
[2018-12-28] MEDS: PANTOPRAZOLE 40MG INJ (PROTONIX) (C9113) IV SCH ×2 (08:43→20:33)
[2018-12-28] MEDS: LEVEMIR (INSULIN DETEMIR) 1 UNITS/0.01ML SC SCH (08:44)
[2018-12-28 12:00] VITALS: BP 123/69
[2018-12-28 16:00] VITALS: BP 127/65
--- NOTE | 2018-12-28 19:57 | IPNPDOC ---
Subjective Date Seen The patient was seen on 12/28/18. Subjective Chief Complaint/HPI 83m with hx of , gi bleeding requiring embolization, pulm htn, rheumatic fever, afib, chronic back pain, chronic diastolic chf, copd, dm, gout, hypothyroid, bph, admitted with dizziness and noted to be anemic. Responded well to transfusion, symptoms have resolved, tolerated clears and advancement A full ROS was performed and negative except as documented above Objective Physical Examination General Exam: Positive: Alert, Cooperative, No Acute Distress Eye Exam: Positive: PERRLA, Conjunctiva & lids normal, EOMI ENT Exam: Positive: Atraumatic, Pharynx Normal Chest Exam: Positive: Clear to auscultation, Other (fibrotic crackles at the bases); Negative: Rhonchi, Wheezing Heart Exam: Positive: Rate Normal, Regular Rhythm, Normal S1, Normal S2, Murmurs (systolic murmur heard all over the precordium); Negative: Rubs Telemetry: Positive: No significant arrhythmia Abdomen Exam: Positive: BS Hyperactive, Soft (not tender) Extremity Exam: Positive: Other (bilateral foot drop); Negative: Clubbing, Cyanosis, Edema Skin Exam: Positive: Nl turgor and temperature Neuro Exam: Positive: Normal Speech, Strength at 5/5 X4 ext, Normal Tone, Sensation Intact Psych Exam: Positive: Mental status NL, Memory Intact Assessment /Plan Assessment 83m p/w anemia h/h improved with transfusion symptoms have resolved seen by PT and cleared will repeat h/h in am and if stable anticipate discharge hypothyroid stable continue synthroid Afib continue multaq chronic back pain continue home doses of morphine DM diabetic diet continue sliding scale Plan/VTE VTE Prophylaxis Ordered?: Yes VS, I&O, 24H, Fishbone Vital Signs/I&O Vital Signs Date Time Temp Pulse Resp B/P (MAP) Pulse Ox O2 Delivery O2 Flow Rate FiO2 12/28/18 16:00 97.8 94 20 127/65 (85) 97 12/26/18 21:00 Room Air I&O- Last 24 Hours up to 6 AM 12/28/18 06:00 Output Total 2680 ml Balance -2680 ml Laboratory Data 24H LABS Laboratory Tests 2 12/27/18 20:16: Bedside Glucose (Misc Panel) 116H 12/28/18 04:16: Immature Granulocyte % (Auto) 1.3, White Blood Count 8.5, Red Blood Count 3.47L, Hemoglobin 11.0L, Hematocrit 33.4L, Mean Corpuscular Volume 96.3H, Mean Corpuscular Hemoglobin 31.7, Mean Corpuscular Hemoglobin Concent 32.9, Red Cell Distribution Width 18.1H, Platelet Count 160, Neutrophils (%) (Auto) 56.9, Lymphocytes (%) (Auto) 24.1, Monocytes (%) (Auto) 8.8H, Eosinophils (%) (Auto) 8.1H, Basophils (%) (Auto) 0.8, Neutrophils # (Auto) 4.9, Lymphocytes # (Auto) 2.1, Monocytes # (Auto) 0.8, Eosinophils # (Auto) 0.7H, Basophils # (Auto) 0.1, Nucleated Red Blood Cells % (auto) 0.0, Anion Gap 7L, Glomerular Filtration Rate 45.0, Estimated Mean Plasma Glucose 154H, Hemoglobin A1c 7.0, Blood Urea Nitrogen 26H, Creatinine 1.57H, Sodium Level 136, Potassium Level 3.4L, Chloride Level 101, Carbon Dioxide Level 28, Calcium Level 9.2 12/28/18 12:11: Bedside Glucose (Misc Panel) 98 12/28/18 17:14: Bedside Glucose (Misc Panel) 172H CBC/BMP Laboratory Tests 12/27/18 23:42 12/28/18 04:16 Red Blood Count 3.47 L, Mean Corpuscular Volume 96.3 H, Mean Corpuscular Hemoglobin 31.7, Mean Corpuscular Hemoglobin Concent 32.9, Red Cell Distribution Width 18.1 H, Neutrophils (%) (Auto) 56.9, Lymphocytes (%) (Auto) 24.1, Monocytes (%) (Auto) 8.8 H, Eosinophils (%) (Auto) 8.1 H, Basophils (%) (Auto) 0.8, Neutrophils # (Auto) 4.9, Lymphocytes # (Auto) 2.1, Monocytes # (Auto) 0.8, Eosinophils # (Auto) 0.7 H, Basophils # (Auto) 0.1, Calcium Level 9.2 AAMIR ALONSO MD Dec 28, 2018 19:57
[2018-12-28 20:00] VITALS: BP 110/56
[2018-12-28] MEDS: SIMVASTATIN 10 MG TAB PO SCH (20:32)
[2018-12-28] MEDS: MORPHINE 15 MG SA TAB PO SCH (20:33)
[2018-12-29] VITALS: BP 98/56
[2018-12-29] MEDS: ACETAMINOPHEN 500 MG TAB PO PRN (03:39)
[2018-12-29 04:00] VITALS: BP 84/52
[2018-12-29 04:19] LABS: BASO # 0.1 10^3/uL (0.0-0.2); BASO % 0.8 % (0.0-1.0); EOS # 0.7 10^3/uL (0.0-0.50); EOS % 7.2 % (0.0-3.0); HEMATOCRIT 32.5 % (42.0-52.0); HEMOGLOBIN 10.7 g/dl (13.5-17.5); LYMPH # 2.2 10^3/uL (1.5-4.5); MEAN CORPUSCULAR HEMOGLOBIN 31.8 pg (27.0-33.0); MEAN CORPUSCULAR HGB CONC 32.9 g/dl (32.0-36.5); MEAN CORPUSCULAR VOLUME 96.7 fl (80.0-96.0); MONO # 0.9 10^3/uL (0.0-0.8); MONO % 9.2 % (0.0-5.0); NEUTROPHILS # 5.5 10^3/uL (1.8-7.7); NEUTROPHILS % 58.5 % (36.0-66.0); PLATELET COUNT, AUTOMATED 178 10^3/uL (150-450); RED BLOOD COUNT 3.36 10^6/uL (4.30-6.10); WHITE BLOOD COUNT 9.5 10^3/uL (4.0-10.0)
[2018-12-29 04:47] LABS: CALCIUM LEVEL 9.2 MG/DL (8.8-10.2); CREATININE FOR GFR 1.78 MG/DL (0.70-1.30); POTASSIUM SERUM 3.7 MEQ/L (3.5-5.1)
[2018-12-29] MEDS: SLF 3 ML SYR IV SCH (06:29)
[2018-12-29] MEDS: LEVOTHYROXINE 125MCG TABLET (0.125MG) PO SCH (06:29)
[2018-12-29 08:00] VITALS: BP 107/54
[2018-12-29] MEDS: POTASSIUM CHLORIDE 10 MEQ SR TABLET PO SCH (08:02)
[2018-12-29] MEDS: DRONEDARONE 400 MG TAB (MULTAQ) PO SCH (08:02)
[2018-12-29] MEDS: ALLOPURINOL 100 MG TAB PO SCH (08:02)
[2018-12-29] MEDS: PANTOPRAZOLE 40MG INJ (PROTONIX) (C9113) IV SCH (08:02)
[2018-12-29] MEDS: TORSEMIDE 20 MG TAB PO SCH (08:02)
[2018-12-29] MEDS: FOLIC ACID 1 MG TAB PO SCH (08:03)
[2018-12-29] MEDS: DIGOXIN 0.125 MG TAB PO SCH (08:03)
[2018-12-29] MEDS: FERROUS GLUCONATE 324 MG TAB PO SCH (08:03)
[2018-12-29] MEDS: HumaLOG INSULIN (NovoLOG) PER UNIT SC SCH (08:03)
[2018-12-29] MEDS: LEVEMIR (INSULIN DETEMIR) 1 UNITS/0.01ML SC SCH (08:04)
[2018-12-29] MEDS: MORPHINE 30 MG SA TAB PO SCH (08:04)
[2018-12-29] MEDS ORDERED: BISACODYL 5 MG TAB PO ONE (09:00)
--- NOTE | 2019-01-02 20:41 | DS.PDOC ---
Discharge Summary General Date of Admission Dec 26, 2018 at 19:48 Date of Discharge 8.2.19 Discharge Summary PROCEDURES PERFORMED DURING STAY: [None]. ADMITTING DIAGNOSES: 1. orthostatic hypotension 2.Anemia due to chronic blood loss DISCHARGE DIAGNOSES: 1. orthostatic hypotension 2. anemia due to chronic blood loss COMPLICATIONS/CHIEF COMPLAINT: Ziyad Gib. HISTORY OF PRESENT ILLNESS: 83 year old male from [facility] assisted living with PMH of GIB in September 2018 requiring 22 units of PRBC with colonoscopies x 2, first one found a red spot in splenic flexure which was clipped also diverticulosis and internal hemorrhoids, however continued to bleed so had angiogram of celiac artery and superior mesenteric artery 10/18 which did not show any bleeding. He continued to bleed so had a second colonoscopy which just showed clots through out the colon, then had a bleeding scan which was positive with a Bleeding pattern suggestive of proximal small intestine/ duodenal bleeding source underwent gastroduodenal artery embolization on 10/24 with stabilization of HH at mid 8s, CHF with preserved EF, diabetes, Moderate Aortic stenosis, Atrial fibrillation not on any anticoagulation, COPD not on oxygen , REBEKAH on CPAP presented to the ED for Dizziness. Patient was his usual self this morning when he woke up. At around noon he started feeling dizzy on his way to the bathroom which persisted. Was evaluated by the staff at the [facility] and felt that he was paler than usual so was sent to the ED for evaluation. In the ED he was found to have an Hb of 7.6 and rectal exam showed grossly hemo positive stools so he was admitted for symptomatic Acute blood loss anemia due to GIB. HOSPITAL COURSE: 83m with hx of , gi bleeding requiring embolization, pulm htn, rheumatic fever, afib, chronic back pain, chronic diastolic chf, copd, dm, gout, hypothyroid, bph, admitted with dizziness and noted to be anemic. Pt was transfused with good response. His hemoglobin was monitored and found to be stable. He also demonstrated the ability to ambulate without dizziness or hypotension and he was dced home. DISCHARGE MEDICATIONS: Please see below. ALLERGIES: Please see below. PHYSICAL EXAMINATION ON DISCHARGE: VITAL SIGNS: Please see below. General Exam: Positive: Alert, Cooperative, No Acute Distress Eye Exam: Positive: PERRLA, Conjunctiva & lids normal, EOMI ENT Exam: Positive: Atraumatic, Pharynx Normal Chest Exam: Positive: Clear to auscultation, Other (fibrotic crackles at the bases); Negative: Rhonchi, Wheezing Heart Exam: Positive: Rate Normal, Regular Rhythm, Normal S1, Normal S2, Murmurs (systolic murmur heard all over the precordium); Negative: Rubs Telemetry: Positive: No significant arrhythmia Abdomen Exam: Positive: BS Hyperactive, Soft (not tender) Extremity Exam: Positive: Other (bilateral foot drop); Negative: Clubbing, Cyanosis, Edema Skin Exam: Positive: Nl turgor and temperature Neuro Exam: Positive: Normal Speech, Strength at 5/5 X4 ext, Normal Tone, Sensation Intact Psych Exam: Positive: Mental status NL, Memory Intact LABORATORY DATA: Please see below. ACTIVITY: [As tolerated]. DIET: cardiac DISPOSITION: O4 Xfer Alp Ssv. DISCHARGE CONDITION: [Stable]. Vital Signs/I&Os Vital Signs Date Time Temp Pulse Resp B/P (MAP) Pulse Ox O2 Delivery O2 Flow Rate FiO2 12/29/18 08:04 18 12/29/18 08:03 76 12/29/18 08:00 97.9 107/54 (71) 94 Discharge Medications Scheduled Allopurinol (Allopurinol) 100 Mg Tab, 200 MG PO DAILY, (Reported) Aspirin (Aspirin) 81 Mg Tab.chew, 81 MG PO DAILY, (Reported) Calcium Carbonate/Vitamin D3 (Oyster Shell 500-Vit D3 200 Tb) 1 Each Tablet, 2 TAB PO QHS, (Reported) Digoxin (Digoxin) 125 Mcg Tab, 125 MCG PO DAILY, (Reported) Docusate Sodium (Docusate Sodium) 100 Mg Capsule, 200 MG PO QHS, (Reported) Dronedarone (Multaq) 400 Mg Tab, 400 MG PO BID, (Reported) Ferrous Gluconate (Ferrous Gluconate) 324 Mg Tab, 324 MG PO BID, (Reported) Fexofenadine HCl (Melinda Allergy) 180 Mg Tab, 180 MG PO DAILY, (Reported) Folic Acid (Folic Acid) 1 Mg Tab, 1 MG PO DAILY, (Reported) Insulin Glargine (Lantus) 100 Unit/1 Ml Vial, 36 UNITS SC DAILY, (Reported) Levothyroxine Sodium (Levothyroxine Sodium) 125 Mcg Tab, 125 MCG PO QAM, (Reported) AT 0600 Lovastatin (Lovastatin) 10 Mg Tab, 10 MG PO QHS, (Reported) Morphine Sulfate (Morphine Sulfate ER) 15 Mg Tabcr, 15 MG PO QHS, (Reported) Morphine Sulfate (Morphine Sulfate ER) 30 Mg Tablet.er, 30 MG PO DAILY, (Reported) Multivitamins (Thera M Plus Tablet) 1 Each Tablet, 1 TAB PO DAILY, (Reported) Naloxegol Oxalate (Movantik) 25 Mg Tablet, 25 MG PO DAILY, (Reported) [place]-3/Dha/Epa/Fish Oil (Fish Oil EC 1,000 mg Softgel) 1 Cap Cap, 1 CAP PO BID, (Reported) Omeprazole (Omeprazole) 20 Mg Cap, 20 MG PO DAILY, (Reported) Potassium Chloride (Potassium Chloride) 20 Meq Tab.er.prt, 20 MEQ PO BID, (Repo rted) Sennosides/Docusate Sodium (Docusate Sodium-Senna Tablet) 1 Each Tablet, 2 TAB PO DAILY, (Reported) Torsemide (Torsemide) 20 Mg Tab, 40 MG PO DAILY, (Reported) Scheduled PRN Acetaminophen (Acetaminophen) 325 Mg Tablet, 650 MG PO Q4H PRN for PAIN, (Reported) Acetaminophen with Codeine (Acetaminophen-Cod #3 Tablet) 1 Each Tablet, 1 TAB PO QID PRN for PAIN, (Reported) Melatonin (Melatonin) 10 Mg Cap, 10 MG PO QHS PRN for INSOMNIA, (Reported) Milk Of Magnesia (Milk of Magnesia) 2,400 Mg/10 Ml Oral.susp, 30 ML PO DAILY PRN for CONSTIPATION, (Reported) Nitroglycerin (Nitrostat) 0.4 Mg Subl, 0.4 MG SL NITRO PRN for CHEST PAIN, (Reported) Allergies Coded Allergies: Beta-Blockers (Beta-Adrenergic Bloc (Verified Allergy, Unknown, 09/13/18) spironolactone (Verified Allergy, Unknown, 09/13/18) warfarin (Verified Allergy, Unknown, 09/13/18) indomethacin (Verified Adverse Reaction, Intermediate, HALLUCINATIONS, 09/13/18) AAMIR ALONSO MD Jan 02, 2019 20:41
== END 2018-12-29 11:48 | DRG 812 ==
LOC: EDBD 17:14 → M ED 17:14 → M ED INP 19:48 → M PCU 21:19
PROVIDERS: ADMIT Internal Medicine Nephrology; ATTEND Hospitalist
PROC: 30233N1 Transfusion of Nonautologous Red Blood Cells into Peripheral Vein, Percutaneous Approach (ICD-10-PCS; principal; 2018-12-26)
DX: D50.0 Iron deficiency anemia secondary to blood loss (chronic) (principal); K92.2 Gastrointestinal hemorrhage, unspecified; I50.32 Chronic diastolic (congestive) heart failure; N17.9 Acute kidney failure, unspecified; E11.9 Type 2 diabetes mellitus without complications; I08.3 Combined rheumatic disorders of mitral, aortic and tricuspid valves; I48.0 Paroxysmal atrial fibrillation; J44.9 Chronic obstructive pulmonary disease, unspecified; I95.1 Orthostatic hypotension; I11.0 Hypertensive heart disease with heart failure; K21.9 Gastro-esophageal reflux disease without esophagitis; G47.33 Obstructive sleep apnea (adult) (pediatric); I27.20 Pulmonary hypertension, unspecified; M21.371 Foot drop, right foot; M21.372 Foot drop, left foot; L40.9 Psoriasis, unspecified; E78.5 Hyperlipidemia, unspecified; E03.9 Hypothyroidism, unspecified; N40.0 Benign prostatic hyperplasia without lower urinary tract symptoms; Z79.4 Long term (current) use of insulin; Z79.891 Long term (current) use of opiate analgesic; Z79.82 Long term (current) use of aspirin; Z98.49 Cataract extraction status, unspecified eye; Z79.899 Other long term (current) drug therapy; Z88.8 Allergy status to other drugs, medicaments and biological substances; Z87.891 Personal history of nicotine dependence

== ENCOUNTER → 2019-01-08 | Outpatient (REF) | payer MEDICARE, MEDICAID ==
[~2019-01-08] MED LIST changes: +GNP8.6TA PO; +INSULANT SC; +OYST500T11 PO; +POTA20TA6 PO
== END ==
LOC: M LAB REF 17:00
PROVIDERS: ATTEND Internal Medicine
DX: I48.0 Paroxysmal atrial fibrillation (principal)

== ENCOUNTER 2019-01-15 11:30 | Emergency (ER) | payer MEDICARE, MEDICAID ==
[~2019-01-15] VITALS: Ht 188 cm; Wt 79.0 kg
[~2019-01-15 11:30] MED LIST changes: +METF-791 PO; -METF500T4 PO
[2019-01-15] MEDS ORDERED: OMEP20TA9 PO (13:12)
[2019-01-15] MEDS ORDERED: TORS10TA3 PO (13:12)
[2019-01-15 13:46] LABS: BASO % 0.4 % (0.0-1.0); EOS # 0.4 10^3/uL (0.0-0.50); EOS % 3.8 % (0.0-3.0); HEMOGLOBIN 10.8 g/dl (13.5-17.5); LYMPH # 1.8 10^3/uL (1.5-4.5); LYMPH % 17.7 % (24.0-44.0); MEAN CORPUSCULAR HGB CONC 33.8 g/dl (32.0-36.5); MEAN CORPUSCULAR VOLUME 94.7 fl (80.0-96.0); MONO # 0.7 10^3/uL (0.0-0.8); MONO % 7.2 % (0.0-5.0); NEUTROPHILS # 6.9 10^3/uL (1.8-7.7); NEUTROPHILS % 69.9 % (36.0-66.0); PLATELET COUNT, AUTOMATED 158 10^3/uL (150-450); RED BLOOD COUNT 3.38 10^6/uL (4.30-6.10); WHITE BLOOD COUNT 9.9 10^3/uL (4.0-10.0)
[2019-01-15 14:00] LABS: INR 1.09; PROTHROMBIN TIME 13.8 SECONDS (11.8-14.0)
[2019-01-15 14:01] LABS: PARTIAL THROMBOPLASTIN TIME 34.6 SECONDS (25.0-38.4)
[2019-01-15 14:11] LABS: ALBUMIN 3.1 GM/DL (3.2-5.2); ALT/SGPT 210 U/L (12-78); BILIRUBIN,DIRECT 0.5 MG/DL (0.0-0.2); BLOOD UREA NITROGEN 26 MG/DL (7-18); CALCIUM LEVEL 9.2 MG/DL (8.8-10.2); CARBON DIOXIDE LEVEL 26 MEQ/L (21-32); CHLORIDE LEVEL 101 MEQ/L (98-107); CK-MB VALUE MASS < 1.0 NG/ML (<3.6); CPK CREATINE PHOSPHOKINASE 40 U/L (39-308); CREATININE FOR GFR 1.53 MG/DL (0.70-1.30); FREE T4 1.19 NG/DL (0.76-1.46); GLOMERULAR FILTRATION RATE 46.4 (>35); GLUCOSE, FASTING 163 MG/DL (70-100); NT-PRO BNP 1492 PG/ML (<450); POTASSIUM SERUM 4.1 MEQ/L (3.5-5.1); SODIUM LEVEL 136 MEQ/L (136-145); TOTAL PROTEIN 7.4 GM/DL (6.4-8.2); TROPONIN I < 0.02 NG/ML (< 0.10)
[2019-01-15] MEDS ORDERED: NS 1,000 ML IV ONE (14:45)
--- NOTE | 2019-01-15 16:22 | CR.PDOC ---
General Date of Consultation: Jan 15, 2019 Referring Provider: NELL ALVARADO Consultation CONSULT FOR: Emergency room, SRINIVASAN Avila REASON FOR CONSULT: Acute kidney injury HISTORY OF PRESENT ILLNESS: This is an 83-year-old male who was sent to the ER for evaluation of pallor while working with PT. He was recently discharged from [facility] on December 29 after being evaluated for anemia. He endorses that he was working with PT this morning ambulated he appeared pale and was asked to ER. He denies having any symptoms that were different from his baseline, he does endorse exertional shortness of breath that improves with rest. He denies weight loss, hair loss, headache, visual changes, chest pain, shortness of breath, cough, nausea, vomiting, diarrhea, abdominal pain, muscle aches, worsening arthritis, change in mood. In the ER, CBC showed H&H stable at 10.8 but CMP showed a BUN and creatinine at 26 and 1.53 respectively. Hospital team was called for consultation for evaluation of acute kidney injury PAST MEDICAL HISTORY: Massive GIB in September 2018 requiring 22 units of PRBC Source as determined by blleeding scan proximal small bowel and had Gastroduodenal artery embolization. Moderate aortic stenosis, mild MR, mild TR, moderate pulmonary hypertension. He was evaluated by cardiology, and Dr. Mcmahon felt he was not a candidate for aortic valve repair/replacement. Rheumatic fever as a child Paroxysmal atrial fibrillation (PAF) Chronic back pain due to severe spinal stenosis Chronic Opiate use. Bilateral foot drop due to spinal stenosis and he wears bilateral ankle braces with a walker. HFpEF (LVEF 60-65%) 05/2018 COPD REBEKAH on CPAP GERD Gout Insulin Dependent DM Psoriasis DLP Hypothyroidism BPH HOME MEDICATIONS: Please see below. 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 ETOH: Denies. Illicit drug use: Denies. FAMILY HISTORY: Reviewed and noncontributory REVIEW OF SYSTEMS: 10 systems reviewed and negative other than HPI PHYSICAL EXAMINATION: VITAL SIGNS: Please see below GENERAL: Pleasant elderly male laying in bed awake alert oriented speaking in co mplete sentences no acute distress HEENT: Atraumatic normocephalic pupils are equal round and reactive, trachea midline, slightly dry mucous membranes, no JVD CARDIOVASCULAR: S1, S2, irregularly irregular rate controlled with 3/6 harsh systolic murmur at the second intercostal space on the right radiating to the left apical base and carotids bilaterally no other heart sounds can be appreciated RESPIRATORY: Clear to auscultation bilaterally. possible bibasilar rhonchi can be appreciated ABDOMINAL: Bowel sounds present abdomen soft and nontender EXTREMITIES: No clubbing cyanosis or edema. Bilateral foot drops with ankle braces in place. Muscle strength in lower extremity 5/5. Atrophy noted in the left arm (secondary to left arm reattachment). 5/5 muscle strength in the right upper extremity NEUROLOGICAL: No new focal deficits noted PSYCHOLOGICAL: Appropriate LABORATORY DATA: See below. MICROBIOLOGY: Please see below. IMAGING: Chest x-ray: Official read is still pending. Reviewed by me shows chronic changes no blunting of the costophrenic angles. No obvious consolidations. ASSESSMENT & PLAN:This is an 83-year-old male who was sent to the ER for evaluation of pallor while working with PT. PROBLEMS: 1. Acute kidney injury. When reviewing his chart showed that his BUN and creatin ine is actually improving. His last urine creatinine on December 29 was 29 and 1.78. Currently status post 1 L of IV fluids in the ER. Encouraged to continue with adequate by mouth intake and follow-up with his primary care provider outpatient and have re-check a BUN and creatinine levels 2. Transaminitis - AST ALT slightly elevated, patient is not complaining of any abdominal pain or diarrhea. Recommendations include discontinuation of any hepatotoxic drugs and follow-up with primary care provider to recheck AST, ALT, outpatient liver ultrasound, hepatitis panel. 3. History of moderate aortic stenosis - last echocardiogram was May 2018 which showed moderate aortic stenosis. At that time he was evaluated by Dr. Mcmahon who felt he was a candidate for an aortic valve replacement repair. When following-up with primary care provider can consider repeat echocardiogram is warranted. Thank you for this interesting consult. I performed a history and physical examination of the patient and discussed their management with the above documenter. I reviewed the note and agree with t he documented findings and plan of care. Vital Signs/I&O Vital Signs Date Time Temp Pulse Resp B/P (MAP) Pulse Ox O2 Delivery O2 Flow Rate FiO2 01/15/19 15:20 18 106/70 (82) 01/15/19 15:15 82 01/15/19 14:15 94 01/15/19 11:52 98.2 01/15/19 11:35 Room Air Laboratory Data Labs 24H Laboratory Tests 2 01/15/19 13:25: Immature Granulocyte % (Auto) 1.0, White Blood Count 9.9, Red Blood Count 3.38L, Hemoglobin 10.8L, Hematocrit 32.0L, Mean Corpuscular Volume 94.7, Mean Corpuscular Hemoglobin 32.0, Mean Corpuscular Hemoglobin Concent 33.8, Red Cell Distribution Width 16.1H, Platelet Count 158, Neutrophils (%) (Auto) 69.9H, Lymphocytes (%) (Auto) 17.7L, Monocytes (%) (Auto) 7.2H, Eosinophils (%) (Auto) 3.8H, Basophils (%) (Auto) 0.4, Neutrophils # (Auto) 6.9, Lymphocytes # (Auto) 1.8, Monocytes # (Auto) 0.7, Eosinophils # (Auto) 0.4, Basophils # (Auto) 0.0, Nucleated Red Blood Cells % (auto) 0.0, Prothrombin Time 13.8, Prothromb Time International Ratio 1.09, Activated Partial Thromboplast Time 34.6, Anion Gap 9, Glomerular Filtration Rate 46.4, Calcium Level 9.2, Aspartate Amino Transf (AST/SGOT) 210H, Alanine Aminotransferase (ALT/SGPT) 210H, Alkaline Phosphatase 202H, Total Bilirubin 1.0, Direct Bilirubin 0.5H, Total Creatine Kinase 40, Creatine Kinase MB < 1.0, Creatine Kinase MB Relative Index 2.50, Troponin I < 0.02, TL-Wbt-M-Type Natriuretic Peptide 1492H, Total Protein 7.4, Albumin 3.1L, Albumin/Globulin Ratio 0.72L, Thyroid Stimulating Hormone (TSH) 2.350, Free Thyroxine 1.19 01/15/19 14:30: Urine Color YELLOW, Urine Appearance CLEAR, Urine pH 5.0, Urine Specific [place] 1.010, Urine Protein NEGATIVE, Urine Glucose (UA) NEGATIVE, Urine Ketones NEGATIVE, Urine Blood 1+H, Urine Nitrite NEGATIVE, Urine Bilirubin NEGATIVE, Urine Urobilinogen 0.2, Urine Leukocyte Esterase TRACEH, Urine WBC (Auto) 3, Urine RBC (Auto) 5H, Urine Hyaline Casts (Auto) 0, Urine Bacteria (Auto) NEGATIVE, Urine Squamous Epithelial Cells 0, Urine Sperm (Auto) CBC/BMP Laboratory Tests 01/15/19 13:25 Red Blood Count 3.38 L, Mean Corpuscular Volume 94.7, Mean Corpuscular Hemoglobin 32.0, Mean Corpuscular Hemoglobin Concent 33.8, Red Cell Distribution Width 16.1 H, Neutrophils (%) (Auto) 69.9 H, Lymphocytes (%) (Auto) 17.7 L, Monocytes (%) (Auto) 7.2 H, Eosinophils (%) (Auto) 3.8 H, Basophils (%) (Auto) 0.4, Neutrophils # (Auto) 6.9, Lymphocytes # (Auto) 1.8, Monocytes # (Auto) 0.7, Eosinophils # (Auto) 0.4, Basophils # (Auto) 0.0 Microbiology Microbiology 01/15/19 Urine Culture, Received Pending Allergies Coded Allergies: Beta-Blockers (Beta-Adrenergic Bloc (Verified Allergy, Unknown, 09/13/18) spironolactone (Verified Allergy, Unknown, 09/13/18) warfarin (Verified Allergy, Unknown, 09/13/18) indomethacin (Verified Adverse Reaction, Intermediate, HALLUCINATIONS, 09/13/18) Home Medications Scheduled Allopurinol (Allopurinol) 100 Mg Tab, 200 MG PO DAILY, (Reported) Aspirin (Aspirin) 81 Mg Tab.chew, 81 MG PO DAILY, (Reported) Calcium Carbonate/Vitamin D3 (Oyster Shell 500-Vit D3 200 Tb) 1 Each Tablet, 2 TAB PO QHS, (Reported) Digoxin (Digoxin) 125 Mcg Tab, 125 MCG PO DAILY, (Reported) Docusate Sodium (Docusate Sodium) 100 Mg Capsule, 200 MG PO QHS, (Reported) Ferrous Gluconate (Ferrous Gluconate) 324 Mg Tab, 324 MG PO BID, (Reported) Fexofenadine HCl (Melinda Allergy) 180 Mg Tab, 180 MG PO DAILY, (Reported) Folic Acid (Folic Acid) 1 Mg Tab, 1 MG PO DAILY, (Reported) Insulin Glargine (Lantus) 100 Unit/1 Ml Vial, 36 UNITS SC DAILY, (Reported) Levothyroxine Sodium (Levothyroxine Sodium) 125 Mcg Tab, 125 MCG PO QAM, (Reported) AT 0600 Lovastatin (Lovastatin) 10 Mg Tab, 10 MG PO QHS, (Reported) Morphine Sulfate (Morphine Sulfate ER) 15 Mg Tabcr, 15 MG PO QHS, (Reported) Morphine Sulfate (Morphine Sulfate ER) 30 Mg Tablet.er, 30 MG PO DAILY, (Reported) Multivitamins (Thera M Plus Tablet) 1 Each Tablet, 1 TAB PO DAILY, (Reported) Naloxegol Oxalate (Movantik) 25 Mg Tablet, 25 MG PO DAILY, (Reported) [place]-3/Dha/Epa/Fish Oil (Fish Oil EC 1,000 mg Softgel) 1 Cap Cap, 1 CAP PO BID, (Reported) Omeprazole (Omeprazole) 20 Mg Tablet.dr, 20 MG PO DAILY, (Reported) Potassium Chloride (Potassium Chloride) 20 Meq Tab.er.prt, 20 MEQ PO BID, (Reported) Sennosides/Docusate Sodium (Docusate Sodium-Senna Tablet) 1 Each Tablet, 2 TAB PO DAILY, (Reported) Torsemide (Torsemide) 10 Mg Tablet, 30 MG PO DAILY, (Reported) Scheduled PRN Acetaminophen (Acetaminophen) 325 Mg Tablet, 650 MG PO Q4H PRN for PAIN, (Reported) Acetaminophen with Codeine (Acetaminophen-Cod #3 Tablet) 1 Each Tablet, 2 TAB PO Q4H PRN for PAIN, (Reported) Melatonin (Melatonin) 10 Mg Cap, 10 MG PO QHS PRN for INSOMNIA, (Reported) Milk Of Magnesia (Milk of Magnesia) 2,400 Mg/10 Ml Oral.susp, 30 ML PO DAILY PRN for CONSTIPATION, (Reported) Nitroglycerin (Nitrostat) 0.4 Mg Subl, 0.4 MG SL NITRO PRN for CHEST PAIN, (Reported) LUCIANO POTTER DO Jan 15, 2019 16:22 BRIAN VALENTE MD Feb 03, 2019 10:08
[2019-01-15 18:30] VITALS: BP 102/72
--- NOTE | 2019-01-15 19:25 | REP ---
REASON: Dyspnea. COMPARISON: Multiple, the latest 12/26/2018 a portable exam. AP and lateral views were obtained today. The technique utilized in obtaining the radiograph has magnified the cardiac silhouette and accentuated the interstitial markings. Once again, there is evidence of interstitial fibrosis status quo. No acute patchy parenchymal opacities or pleural effusions have developed. The chronic opacities could easily obscure an underlying significant nodule. There is cardiomegaly accentuated by technique status quo. There is no change in the osseous structures. IMPRESSION:Stable appearing rather marked chronic changes as described above. Acute disease superimposed on chronic change can not be ruled out. Correlate clinically with appropriate followup and consider further evaluation with chest CT. Electronically Signed by Babatunde Bagley DO 01/16/2019 11:24 A
--- NOTE | 2019-01-16 10:20 | ECGEPIP ---
[facility] - ED Test Date: 2019-01-15 Pat Name: TY MARIE Department: Room: - Gender: Male Forms Builder: carlos a : 1935 Requested By: GILMAR Rowe Order Number: [id number] Reading MD: Peggy Alvarez Measurements Intervals [place] Rate: 78 P: CO: 0 QRS: -14 QRSD: 105 T: 82 QT: 385 QTc: 440 Interpretive Statements ATRIAL FIBRILLATION NONSPECIFIC ST & T-WAVE ABNORMALITY ABNORMAL RHYTHM ECG SIMILAR 12/26/18 Electronically Signed on 01-16-2019 10:20:18 EDT by Pgegy Alvarez
== END 2019-01-15 18:59 | disposition home or self-care (01) ==
LOC: EDBD 11:30 → M ED 11:30
DX: D64.9 Anemia, unspecified (principal); R94.5 Abnormal results of liver function studies; I48.91 Unspecified atrial fibrillation; E11.9 Type 2 diabetes mellitus without complications; J44.9 Chronic obstructive pulmonary disease, unspecified; E03.9 Hypothyroidism, unspecified; K21.9 Gastro-esophageal reflux disease without esophagitis; G47.33 Obstructive sleep apnea (adult) (pediatric); Z79.4 Long term (current) use of insulin; Z88.8 Allergy status to other drugs, medicaments and biological substances

== ENCOUNTER → 2019-01-22 | Outpatient (CLI) | payer MEDICARE, MEDICAID ==
[~2019-01-22] MED LIST changes: +DIGO0.123 PO; +LANTINJ4 SC; +MAGN400O49 PO; +MIRA1POW3 PO; +MORP-69 PO; +OMEP1CAP73 PO; -OMEP20CA4 PO; +OMEP20TA9 PO; +RA M10TA PO; +SENN8.6T28 PO; +SENN8.6T58 PO; +TORS10TA3 PO
--- NOTE | 2019-01-24 00:15 | ECWPNPC ---
PATIENT NAME: TY MARIE : 1935 GENDER: MALE VISIT DATE: 01/22/2019 DISCHARGE DATE: 01/22/19 1117 VISIT LOCKED DATE TIME: PHYSICIAN: DIONE PORTER RESOURCE: DIONE PORTER REASON FOR APPOINTMENT 1. THORACIC BACK PAIN HISTORY OF PRESENT ILLNESS HISTORY OF PRESENT ILLNESS: PAIN THE PATIENT DESCRIBES THE PAIN... 83 YEAR OLD MALE IN FOR HIS CHRONIC PAIN FOLLOW UP. HE RATES HIS PAIN AT A 6/10 CURRENTLY AND DESCRIBES IT ACHING. HE FEELS THE MEDICATIONS ARE WORKING WELL AND DENIES MED SIDE EFFECTS. FALL RISK SCREENING: SCREENING :NO FALLS REPORTED IN THE LAST YEAR CURRENT MEDICATIONS TAKING CALCIUM 500-100 MG-UNIT TABLET CHEWABLE 1TAB ORALLY BID TAKING COLACE 100 MG CAPSULE 2 CAPSULES ORALLY TWICE DAILY, NOTES: DUPLICATE TAKING MULTAQ 400 MG TABLET 1 TABLET WITH MEALS ORALLY TWICE A DAY TAKING FERROUS GLUCONATE 324 (38 FE) MG TABLET ORALLY TWICE DAILY TAKING LOVASTATIN 10 MG TABLET 1 TABLET WITH A MEAL ORALLY ONCE A DAY TAKING FISH OIL 1000 MG CAPSULE 1 CAPSULE ORALLY BID TAKING POTASSIUM CHLORIDE - CRYSTALS 20MEQ 1 TABLET TWICE A DAY TAKING LEVOTHYROXINE SODIUM 125 MCG TABLET 1 TABLET ON AN EMPTY STOMACH IN THE MORNING ORALLY ONCE A DAY TAKING OMEPRAZOLE 20MG 20MG TABLET 1CAP ORAL DAILY TAKING ALLOPURINOL 100 MG TABLET 2 TABLET PO ONCE A DAY TAKING MULTIVITAMINS TABLET 1TAB ORALLY DAILY TAKING DIGOXIN 125 MCG TABLET 1 TABLET ORALLY ONCE A DAY TAKING HCELSEA ALLERGY 180 MG TABLET 1 TABLET ORALLY ONCE A DAY TAKING FOLIC ACID 1 MG TABLET 1 TABLET ORALLY ONCE A DAY TAKING MOVANTIK 25 MG TABLET 1 TABLET IN THE MORNING ORALLY ONCE A DAY TAKING SENNA S 8.6-50 MG TABLET 2 TABLETS ORALLY ONCE A DAY TAKING LANTUS SOLOSTAR 100 UNIT/ML SOLUTION PEN-INJECTOR 36 UNITS SUBCUTANEOUS DAILY TAKING MELATONIN 10 MG TABLET 1 TAB ORALLY ONCE DAILY TAKING MILK OF MAGNESIA 400 MG/5ML SUSPENSION 30 ML NEEDED ORALLY DAILY FOR CONSTIPATION TAKING ACETAMINOPHEN-CODEINE #3 300-30 MG TABLET 1 TABLET NEEDED ORALLY EVERY 4 HRS TAKING ACETAMINOPHEN 325 MG CAPSULE 2 CAPSULE NEEDED ORALLY EVERY 4 HRS TAKING SENNA 8.6 MG TABLET 1 TABLET NEEDED ORALLY ONCE A DAY FOR CONSTIPATION TAKING MORPHINE SULFATE ER 15 MG TABLET EXTENDED RELEASE 1 TABLET ORALLY 1 TAB PM MDD1 AT 2000 TAKING FEXOFENADINE HCL 180 MG TABLET 1 TABLET NEEDED ORALLY ONCE A DAY TAKING NITROSTAT 0.4 MG TABLET SUBLINGUAL SUBLINGUAL DIRECTED TAKING MIRALAX SUSPENSION 17 GRAMS ORALLY AT HOUR OF SLEEP NOT-TAKING ASPIRIN 81 MG TABLET CHEWABLE 1 TABLET ORALLY ONCE A DAY NOT-TAKING TORSEMIDE 20 MG TABLET 2 TABS ORALLY DAILY AT 900 NOT-TAKING MS CONTIN 30 MG TABLET EXTENDED RELEASE 1 TABLET ORALLY DAILY/AM MDD1 6AM NOT-TAKING ASPIRIN EC 81 MG TABLET DELAYED RELEASE 1 TABLET ORALLY ONCE A DAY NOT-TAKING BASAGLAR KWIKPEN 100 UNIT/ML SOLUTION PEN-INJECTOR 36 UNITS SUBCUTANEOUS DAILY AT 600 NOT-TAKING BISACODYL 10 MG SUPPOSITORY 1 SUPPOSITORY NEEDED RECTAL ONCE A DAY NOT-TAKING DISPOSABLE ENEMA 19-7GRAM/118ML 1 PER RECTUM PRN CONSTIPATION NOT-TAKING GLUCAGON EMERGENCY 1 MG KIT DIRECTED INJECTION NOT-TAKING SENNA LAXATIVE 8.6 MG TABLET 2 TABLETS AT BEDTIME NEEDED ORALLY ONCE A DAY NOT-TAKING TRADJENTA 5 MG TABLET 1 TABLET ORALLY ONCE A DAY AT 900 NOT-TAKING ELIQUIS 5MG TABLET 1TAB ORAL TWICE DAILY NOT-TAKING ACETAMINOPHEN-CODEINE #4 300-60 MG TABLET 1 TABLET NEEDED ORALLY Q8H PRN MDD3 NOT-TAKING POLYETHYLENE GLYCOL POWDER 17MG Q OTHER DAY NOT-TAKING JANUVIA 50 MG TABLET 1 TAB ORALLY ONCE A DAY NOT-TAKING METFORMIN HCL 1000 MG TABLET 1 TABLET WITH MEALS ORALLY TWICE A DAY NOT-TAKING ACETAMINOPHEN 500 MG TABLET 1 TABLET NEEDED ORALLY EVERY 6 HRS PRN PAIN OR FEVER MDD=4 TAKE WITH TRAMADOL NOT-TAKING TRULICITY 0.75 MG/0.5ML SOLUTION PEN-INJECTOR 0.5 ML SUBCUTANEOUS WEEKLY NOT-TAKING METHOTREXATE 2.5 MG TABLET 7 TABS ORALLY EVERY TUE NOT-TAKING SYSTANE 0.4-0.3 % SOLUTION 1 DROP INTO AFFECTED EYE NEEDED OPHTHALMIC 24 TIME(S) A DAY NOT-TAKING ONDANSETRON 4 MGS 1 TAB ORAL NEEDED FOR NAUSEA NOT-TAKING TORSEMIDE 20 MG TABLET 1 ORALLY AT 1400 DAILY NOT-TAKING TRIAMCINOLONE ACETONIDE 0.025 % CREAM 1 APPLICATION TO AFFECTED AREA EXTERNALLY NEEDED NOT-TAKING NYSTATIN 706019 UNIT/GM CREAM 1 APPLICATION TO AFFECTED AREA EXTERNALLY TWICE A DAY NOT-TAKING GUAIFENESIN-DM 100-10 MG/5ML SYRUP 10 ML NEEDED ORALLY EVERY 4 HRS NOT-TAKING TYLENOL WITH CODEINE #3 300-30 MG TABLET 1 TABLET NEEDED ORALLY EVERY 6 HRS NOT-TAKING DOCUSATE SODIUM 100 MG CAPSULE 1 CAPSULE ORALLY BID NOT-TAKING CALCIPOTRIENE 0.005 % OINTMENT 1 APPLICATION TO AFFECTED AREA EXTERNALLY BID FOR PSORASIS NOT-TAKING OXYCODONE-ACETAMINOPHEN 5-325 MG TABLET 1 TABLET NEEDED ORALLY EVERY 6 HRS PRN PAIN MDD=4 NOT-TAKING KETOCONAZOLE 2 % CREAM 1 APPLICATION TO AFFECTED AREA EXTERNALLY ONCE A DAY NOT-TAKING NORCO 10-325 MG TABLET 1 TABLET NEEDED ORALLY EVERY 6 HRS PRN PAIN MDD=4 NOT-TAKING FUROSEMIDE 40 MG TABLET 1 TABLET ORALLY DAILY IN THE AM, NOTES: IN AM NOT-TAKING HYDROCODONE-ACETAMINOPHEN 10-325 MG TABLET 1 TAB ORALLY EVERY 4- 6 HRSMDD4 NOT-TAKING LASIX 20 MG TABLET 1 TABLET ORALLY ONCE A DAY IN THE AFTERNOON, NOTES: IN AFTERNOON NOT-TAKING MECLIZINE HCL 25 MG TABLET CHEWABLE 1 TABLET ORALLY THREE TIMES A DAY PRN NOT-TAKING ZOLPIDEM TARTRATE 12.5 MG TABLET EXTENDED RELEASE 2 TABLET AT BEDTIME NEEDED ORALLY ONCE A DAY NOT-TAKING TAMSULOSIN HCL 0.4 MG CAPSULE 1 CAPSULE 30 MINUTES AFTER THE SAME MEAL EACH DAY ORALLY ONCE A DAY NOT-TAKING SPIRONOLACTONE 25 MG TABLET 1 TABLET ORALLY ONCE A DAY MEDICATION LIST REVIEWED AND RECONCILED WITH THE PATIENT PAST MEDICAL HISTORY BPH HYPERLIPIDEMIA DVT GOUT KIDNEY STONES PNEUMONIA HYPERTENSION CHF ? TB COPD HTN AFIB DM TYPE 2 HYPOTHYROID DRY EYES PSORIASIS INSOMNIA CHRONIC PAIN SYNDROME CONSTIPATION REBEKAH HEART FAILURE UNSPECIFIED UNSPECIFIED ANEMIA BLOODY STOOLS, LOWER GI BLEED ALLERGIES INDOCIN: HALLUCINATION - SIDE EFFECTS SURGICAL HISTORY TURP CATARACT CYSTOSCOPY SEVERAL LEFT ARM SURG AND TONSILLECTOMY DISTANT PAST LITHOTRIPSY COLONOSCOPY, FIXED GI BLEED FAMILY HISTORY FATHER: MOTHER: 2 BROTHER(S) , 2 SISTER(S) . 2 SON(S) , 4 DAUGHTER(S) . SOCIAL HISTORY GENERAL: TOBACCO USE ARE YOU A:FORMER SMOKER HOW LONG HAS IT BEEN SINCE YOU LAST SMOKED?> 10 YEARS PAIN CLINIC PFS, CLERGY, PUBLIC HEALTH REFERRALS PFS REFERRAL NEEDED?NO CLERGY REFERRAL NEEDED?NO PUBLIC HEALTH REFERRAL NEEDED?NO WAS THE PROVIDER NOTIFIED OF ANY PERTINENT INFO?YES HAS THE PATIENT BEEN EDUCATED REGARDING HIS/HER PLAN OF CARE?YES HAS THE PATIENT BEEN EDUCATED REGARDING PAIN, THE RISK FOR PAIN, THE IMPORTANCE OF EFFECTIVE PAIN MANAGEMENT, AND THE PAIN ASSESSMENT PROCESS?YES LATEX QUESTIONNAIRE LATEX ALLERGY : HAVE YOU EVER DEVELOPED ANY TYPE OF REACTION AFTER HANDLING LATEX PRODUCTS SUCH RUBBER GLOVES, CONDOMS, DIAPHRAGMS, BALLOONS, SOCKS, OR UNDERWEAR?NO LATEX ALLERGY : HAVE YOU EVER DEVELOPED ANY TYPE OF REACTION DURING OR AFTER DENTAL APPOINTMENT, VAGINAL/RECTAL EXAMINATION, SURGICAL PROCEDURE, OR ANY OTHER EXPOSURE?NO LATEX RISK : HAVE YOU EVER HAD ANY DIFFICULTY BREATHING OR HIVES AFTER EATING OR HANDLING ANY FRUITS, OR VEGETABLES; SUCH KIWI, BANANAS, STONE FRUITS, OR CHESTNUTSNO LATEX RISK : DO YOU HAVE A PREVIOUS PERSONAL HISTORY OF MORE THAN NINE SURGERIES, SPINA BIFIDA, OR REPEATED CATHERIZATIONS? NO LATEX RISK : ARE YOU FREQUENTLY EXPOSED TO LATEX PRODUCTS IN YOUR OCCUPATION?NO DATE ASKED : 09/29/2018 OTHERS AT HOME: LIVES AT THE [place]. ADVANCE DIRECTIVE ADVANCE DIRECTIVE DISCUSSED WITH PATIENT:YES HCP - MARITZA MARIE (DAUGHTER) [phone] PENTECOSTAL [id number] SCIENTOLOGIST NO MORMON BELIEFS THAT WOULD IMPACT HEALTH CARE. LANGUAGE LANGUAGES SPOKEN:SAO TOMEAN NEW PATIENT PAIN DIARY FROM 0-10, WHAT LEVEL IS YOUR PAIN TODAY?7 BMI CARE GOAL FOLLOW-UP BELOW NORMAL BMI FOLLOW-UPDIETARY EDUCATION FOR WEIGHT GAIN ALCOHOL SCREENING DID YOU HAVE A DRINK CONTAINING ALCOHOL IN THE PAST YEAR?NO POINTS0 INTERPRETATIONNEGATIVE RECREATIONAL DRUG USE DRUG USE?NO PATIENT DENIES ABUSE OR MISSUSED OF ANY MEDICATION. PATIENT DENIES USE OF ANY ILLEGAL SUBSTANCE INCLUDING MARIJUANA OR COCAINE. LEARNING BARRIERS / SPECIAL NEEDS HEARING IMPAIRED?YES :HEARING AIDES VISION IMPAIRED?YES :CORRECTIVE LENSES COGNITIVELY IMPAIRED?NO SPECIAL DEVICES?YES :WHEELCHAIR PATIENT IS NOT A CURRENT SMOKER OR DOES NOT ABUSE ALCOHOL.REVIEWED WITH PATIENT 02/23/18 1118 JS05/25/18 REVIEWED WITH PT. CARDONA WITH PATIENT 01/22/19 1024 NLJ. HOSPITALIZATION/MAJOR DIAGNOSTIC PROCEDURE SURGERY RELATED VERTIGO 11/2018 REVIEW OF SYSTEMS REVIEWED BY: PROVIDER: AFSANEH LEE . CONSTITUTIONAL: ANY CHANGE IN YOUR MEDICAL CONDITION? NO . CHILLS NO . FEVER NO . INFECTION: DO YOU HAVE NEW INFECTIONS? NO . DO YOU HAVE HISTORY OF MRSA? YES . MUSCULOSKELETAL: ANY NEW PATTERNS OF PAIN OR NUMBNESS? NO- STATES PAIN COMES AND GOES, NOT ANY WORSE OR ANY BETTER . GASTROENTEROLOGY: ANY NEW CHANGE IN BOWEL CONTROL? NO . GENITOURINARY: ANY NEW CHANGE IN BLADDER CONTROL? NO . IS THERE A CHANCE YOU COULD BE ? NO . HEMATOLOGY/LYMPH: DO YOU TAKE ANY BLOOD THINNERS? (FOR EXAMPLE- COUMADIN, PLAVIX, AGGRENOX, PLATEL, PRADAXA, OR XARELTO) NO . WHEN WAS YOUR LAST DOSE? DATE: TIME: . NEUROLOGY: HAVE YOU FALLEN IN THE PAST 12 MONTHS? NO . ANY NEW EXTREMITY NUMBNESS OR WEAKNESS? NO . CARDIOLOGY: DO YOU HAVE A PACEMAKER OR DEFIBRILLATOR? NO . RESPIRATORY: HAVE YOU BEEN SICK IN THE PAST WEEK? NO . FEVER NO . FLU LIKE SYMPTOMS? NO . COUGH NO . INTEGUMENTARY: DO YOU HAVE ANY RASHES OR OPEN SORES? NO . ALLERGIC/IMMUNO: ARE YOU ALLERGIC TO IV DYE? NO . ANY NEW ALLERGIES? NO . PSYCHIATRIC: DO YOU HAVE THOUGHTS OF HURTING YOURSELF OR SOMEONE ELSE? NO . ARE YOU ABUSED, NEGLECTED, OR IN AN UNSAFE ENVIRONMENT? NO . ENDOCRINOLOGY: ARE YOU DIABETIC? YES . OTHER: DO YOU NEED ANY PRESCRIPTIONS? NO- PATIENT IS UNSURE IF HE NEEDS REFILLS, NO NOTE FROM THE [facility] TO STATES THAT PATEINT NEEDS REFILLS . IF YES, PLEASE LIST: ____ . ANY NEW PROBLEMS WITH YOUR MEDICATIONS? NO . WHEN DID YOU LAST EAT? ____ . WHEN DID YOU LAST DRINK? ____ . WHAT DID YOU LAST DRINK? ____ . NAME OF PERSON DRIVING YOU HOME? ____ . DO YOU HAVE ANY OTHER QUESTIONS OR CONCERNS NO . VITAL SIGNS WT 178.5 LBS, HT 74", BMI 22.92 INDEX, BP 112/64 MM HG, HR 78 /MIN, RR 18 /MIN, TEMP 97.2 F, OXYGEN SAT % 94%, SAFE IN ENV? (Y/N) YES, NA INITIALS ME 10:29, REVIEWED BY: CALDERON. EXAMINATION GENERAL EXAMINATION: GENERALNO ACUTE DISTRESS, WELL NOURISHED AND HYDRATED. PSYCHAPPROPRIATE MOOD AND AFFECT . LUNGS:CLEAR TO AUSCULTATION BILATERALLY, NO WHEEZES, RHONCHI, RALES. HEART: HR IRREGULAR, GRADE II SYSTOLIC MURMUR NOTED, . 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 GIVEN PRESENTING SYMPTOMS AND RESULTS OF PHYSICAL EXAMINATION RECOMMENCED CONTINUING CURRENT MEDICATION REGIMEN WITH FOLLOW UP IN 2 MONTHS. PATIENT HAS EXPRESSED UNDERSTANDING OF AND WAS IN AGREEMENT WITH TREATMENT PLAN. GIVEN TIME TO ASK QUESTIONS AND EXPRESS CONCERNS. , ISTOP REGISTRY REVIEWED AND DEMONSTRATES COMPLLIANCE. (REF #[id number] ) BRINGS IN MEDICATIONS WHICH IS APPROPRIATE FOR WHAT WAS DISPENSED. RECENT URINE TOXICOLOGY REVIEWED. NO UNAUTHORIZED MEDICATIONS. NO ILLICIT SUBSTANCES AND PRESCRIBED MEDICATIONS WERE PRESENT. PROCEDURE CODES FA211 ESTABILISHED PATIENT [facility] CHARGE DISPOSITION & COMMUNICATION FOLLOW UP 2 MONTHS (REASON: CHRONIC PAIN ) ELECTRONICALLY SIGNED BY SRINIVASAN ZAMUDIO ON 01/23/2019 AT 09:15 AM EDT DISCLAIMER : THIS IS A VISIT SUMMARY EXTRACTED FROM THE [employer] CHART. IT IS NOT A COPY OF THE [employer] PROGRESS NOTE. HERNANDO
== END ==
LOC: M PAIN 10:30
PROVIDERS: ATTEND Family Medicine
DX: M46.96 Unspecified inflammatory spondylopathy, lumbar region (principal); M54.6 Pain in thoracic spine; G89.29 Other chronic pain; E78.5 Hyperlipidemia, unspecified; I10 Essential (primary) hypertension; J44.9 Chronic obstructive pulmonary disease, unspecified; E11.9 Type 2 diabetes mellitus without complications; E03.9 Hypothyroidism, unspecified; G47.00 Insomnia, unspecified; G47.33 Obstructive sleep apnea (adult) (pediatric); D50.9 Iron deficiency anemia, unspecified; Z87.891 Personal history of nicotine dependence; Z88.6 Allergy status to analgesic agent; Z86.14 Personal history of Methicillin resistant Staphylococcus aureus infection; Z79.4 Long term (current) use of insulin; Z79.891 Long term (current) use of opiate analgesic; Z79.899 Other long term (current) drug therapy

== ENCOUNTER 2019-02-28 12:55 | Day surgery (SDC) | payer MEDICARE, MEDICAID ==
[~2019-02-28] VITALS: Ht 188 cm; Wt 82.6 kg
[~2019-02-28 12:55] MED LIST changes: -DIGO0.123 PO; -LANTINJ4 SC; -MAGN400O49 PO; -MIRA1POW3 PO; -MORP-69 PO; -OMEP1CAP73 PO; +OMEP20CA4 PO; -RA M10TA PO; -SENN8.6T28 PO; -SENN8.6T58 PO
[2019-02-28] MEDS ORDERED: MIDAZOLAM INJ 2 MG/2 ML VIAL (J2250) As Ordered ONE ×2 (13:37→13:58)
[2019-02-28] MEDS ORDERED: CETACAINE SPRAY 5GM As Ordered ONE ×2 (13:49→15:10)
[2019-02-28] MEDS ORDERED: NS 1,000 ML IV ONE (14:00)
--- NOTE | 2019-02-28 15:19 | T-ECHO ---
DATE OF STUDY: 02/28/2019 PROCEDURE PERFORMED: Transesophageal echocardiogram. INDICATION: Pre Watchman left atrial appendage closure device transesophageal echocardiogram to obtain measurements of the left atrial appendage. PREPROCEDURE DIAGNOSIS: Chronic atrial fibrillation, pre Watchman ANICETO. POSTPROCEDURE DIAGNOSIS: Chronic atrial fibrillation, pre Watchman ANICETO. See conclusions for additional diagnoses. PROCEDURE PERFORMED BY: Ryan Holt MD DATA WAREHOUSE CONSULTANT: None. IV SEDATION: Midazolam 3 mg IV. COMPLICATIONS: None. PROCEDURE DESCRIPTION: The patient received topical Cetacaine spray to the back of the pharynx. He received a total of 3 mg of midazolam IV for light conscious sedation. Rhythm was atrial fibrillation. Some premature ventricular contractions (PVCs) were noted. Esophageal intubation was accomplished without difficulty using a Brandy 2-dimensional Omni directional phased ray transesophageal echocardiogram probe from Brandy. The left ventricle appeared to be normal in size and wall thickness and in regional wall motion and systolic function. Left ventricular ejection fraction (LVEF) was 60% by visual estimate. The right ventricle appeared normal in size and systolic function. The left atrium appeared enlarged. The right atrium appeared to be normal in size. Atrial septum was intact anatomically and by color flow Doppler. Measurements of the left atrial appendage at 45 degrees showed a diameter of 2.84 cm with a length of 3.43 cm. Left atrial appendage measurements at zero degrees showed diameter of 2.8 cm and length of 4.3 cm. At 90 degrees, the left atrial appendage diameter was 2.3 cm with a length of 4.01 cm. 135 degree images were difficult, however, the diameter of the left atrial appendage measured 2.35 cm x 3.79 cm in length. Spontaneous echocardiogram contrast type 2 was present in the left atrial appendage and in the left atrium. No thrombus in the left atrial appendage. Mild mitral annular calcification. No mitral prolapse. No flail segments of the mitral leaflets. Moderate mitral regurgitation was present. No mitral stenosis. Aortic valve was 3-cusp and appeared to have severe focal thickening and focal calcific deposits. No effusion of the aortic cusps. Reduced mobility of the aortic cusps. Suggestive of probably moderate degree of aortic valve stenosis, although no gradients could be measured on the study. No aortic regurgitation. Pulmonic valve appeared normal and was without regurgitation. Tricuspid leaflets appeared normal. Trace tricuspid regurgitation. No pericardial effusion. The distal aortic and descending thoracic aorta showed diffuse atheroma, which was up to severe degree of atheroma in various portions. CONCLUSIONS: 1. Dilated left atrial appendage without thrombus. Type 2 spontaneous echocontrast seen in the left atrial appendage and in the left atrium. Appearance of left atrial dilatation. No atrial septal defect or patent foramen ovale. 2. Normal left ventricle size, wall thickness, regional wall motion, and systolic function. LVEF of 60% by visual estimate. 3. Mild mitral annular calcification. Moderate mitral regurgitation. 4. Severe aortic valve sclerosis with visual appearance of moderate aortic stenosis. No aortic regurgitation. 5. Severe atheroma in the distal aortic arch and descending thoracic aorta. 6. Normal right ventricle size and systolic function.
[2019-02-28 15:49] LABS: CK-MB VALUE MASS 1.5 NG/ML (<3.6); CPK CREATINE PHOSPHOKINASE 33 U/L (39-308); MB/CK RELATIVE INDEX 4.55 (< OR =4); TROPONIN I < 0.02 NG/ML (< 0.10)
[2019-02-28 16:00] VITALS: BP 117/71
--- NOTE | 2019-03-01 00:51 | ECGEPIP ---
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
== END 2019-02-28 14:30 | disposition home or self-care (01) ==
LOC: M OPP 12:55
PROVIDERS: ATTEND Internal Medicine Cardiovascular Disease
DX: I48.11 Longstanding persistent atrial fibrillation (principal); I35.0 Nonrheumatic aortic (valve) stenosis; I25.10 Atherosclerotic heart disease of native coronary artery without angina pectoris; I50.9 Heart failure, unspecified; I11.0 Hypertensive heart disease with heart failure; E78.5 Hyperlipidemia, unspecified; Z87.891 Personal history of nicotine dependence; M81.0 Age-related osteoporosis without current pathological fracture; J44.9 Chronic obstructive pulmonary disease, unspecified; Z86.711 Personal history of pulmonary embolism; G47.30 Sleep apnea, unspecified; N18.9 Chronic kidney disease, unspecified; N40.1 Benign prostatic hyperplasia with lower urinary tract symptoms; Z88.8 Allergy status to other drugs, medicaments and biological substances; Z79.82 Long term (current) use of aspirin; Z79.899 Other long term (current) drug therapy
CPT/HCPCS: 36415; 82550; 82553; 84484; 93005; 93312; 93320; 93325; J2250

== ENCOUNTER → 2019-03-27 | Outpatient (CLI) | payer MEDICARE, MEDICAID ==
--- NOTE | 2019-03-29 02:14 | ECWPNPC ---
PATIENT NAME: TY MARIE : 1935 GENDER: MALE VISIT DATE: 03/27/2019 DISCHARGE DATE: 03/27/19 1201 VISIT LOCKED DATE TIME: PHYSICIAN: DIONE PORTER RESOURCE: DIONE PORTER REASON FOR APPOINTMENT 1. 2 MONTHS HISTORY OF PRESENT ILLNESS HISTORY OF PRESENT ILLNESS: PAIN THE PATIENT DESCRIBES THE PAIN... 83-YEAR-OLD MALE IN FOR CHRONIC PAIN FOLLOW-UP. HE RATES HIS PAIN CURRENTLY AT A 7 OUT OF 10 AND DESCRIBES IT ACHING. FALL RISK SCREENING: SCREENING :NO FALLS REPORTED IN THE LAST YEAR CURRENT MEDICATIONS TAKING CALCIUM 500-100 MG-UNIT TABLET CHEWABLE 1TAB ORALLY BID TAKING COLACE 100 MG CAPSULE 2 CAPSULES ORALLY TWICE DAILY TAKING FERROUS GLUCONATE 324 (38 FE) MG TABLET ORALLY TWICE DAILY TAKING LOVASTATIN 10 MG TABLET 1 TABLET WITH A MEAL ORALLY ONCE A DAY TAKING FISH OIL 1000 MG CAPSULE 1 CAPSULE ORALLY BID TAKING POTASSIUM CHLORIDE - CRYSTALS 20MEQ 1 TABLET TWICE A DAY TAKING LEVOTHYROXINE SODIUM 125 MCG TABLET 1 TABLET ON AN EMPTY STOMACH IN THE MORNING ORALLY ONCE A DAY TAKING OMEPRAZOLE 20MG 20MG TABLET 1CAP ORAL DAILY TAKING ALLOPURINOL 100 MG TABLET 2 TABLET PO ONCE A DAY TAKING MULTIVITAMINS TABLET 1TAB ORALLY DAILY TAKING DIGOXIN 125 MCG TABLET 1 TABLET ORALLY ONCE A DAY TAKING FOLIC ACID 1 MG TABLET 1 TABLET ORALLY ONCE A DAY TAKING MOVANTIK 25 MG TABLET 1 TABLET IN THE MORNING ORALLY ONCE A DAY TAKING SENNA S 8.6-50 MG TABLET 2 TABLETS ORALLY ONCE A DAY TAKING LANTUS SOLOSTAR 100 UNIT/ML SOLUTION PEN-INJECTOR 36 UNITS SUBCUTANEOUS DAILY TAKING MELATONIN 10 MG TABLET 1 TAB ORALLY ONCE DAILY TAKING MILK OF MAGNESIA 400 MG/5ML SUSPENSION 30 ML NEEDED ORALLY DAILY FOR CONSTIPATION TAKING ACETAMINOPHEN 325 MG CAPSULE 2 CAPSULE NEEDED ORALLY EVERY 4 HRS TAKING FEXOFENADINE HCL 180 MG TABLET 1 TABLET NEEDED ORALLY ONCE A DAY TAKING NITROSTAT 0.4 MG TABLET SUBLINGUAL SUBLINGUAL DIRECTED TAKING MIRALAX SUSPENSION 17 GRAMS ORALLY AT HOUR OF SLEEP TAKING TYLENOL WITH CODEINE #3 300-30 MG TABLET 1 TABLET NEEDED ORALLY EVERY 6 HRS TAKING MS CONTIN 30 MG TABLET EXTENDED RELEASE 1 TABLET ORALLY DAILY/AM MDD1 6AM TAKING MORPHINE SULFATE ER 30 MG TABLET EXTENDED RELEASE ABUSE-DETERRENT 1 TABLET ORALLY ONCE A DAY AT 6 AM MDD1 TAKING MS CONTIN 15 MG TABLET EXTENDED RELEASE 1 TABLET ORALLY DAILY MDD1 TAKING MORPHINE SULFATE ER 15 MG TABLET EXTENDED RELEASE DIRECTED ORALLY 1 IN AM, 2 IN PM TAKING ELIQUIS 2.5 MG TABLET DIRECTED ORALLY TAKING ASPIRIN 81 MG TABLET CHEWABLE 1 TABLET ORALLY ONCE A DAY TAKING TORSEMIDE 20 MG TABLET 1 TABLET ORALLY DAILY AT 900 NOT-TAKING MULTAQ 400 MG TABLET 1 TABLET WITH MEALS ORALLY TWICE A DAY NOT-TAKING CHELSEA ALLERGY 180 MG TABLET 1 TABLET ORALLY ONCE A DAY NOT-TAKING ACETAMINOPHEN-CODEINE #3 300-30 MG TABLET 1 TABLET NEEDED ORALLY EVERY 4 HRS, NOTES: DUPLICATE NOT-TAKING SENNA 8.6 MG TABLET 1 TABLET NEEDED ORALLY ONCE A DAY FOR CONSTIPATION, NOTES: DUPLICATE NOT-TAKING ASPIRIN EC 81 MG TABLET DELAYED RELEASE 1 TABLET ORALLY ONCE A DAY NOT-TAKING BASAGLAR KWIKPEN 100 UNIT/ML SOLUTION PEN-INJECTOR 36 UNITS SUBCUTANEOUS DAILY AT 600 NOT-TAKING BISACODYL 10 MG SUPPOSITORY 1 SUPPOSITORY NEEDED RECTAL ONCE A DAY NOT-TAKING DISPOSABLE ENEMA 19-7GRAM/118ML 1 PER RECTUM PRN CONSTIPATION NOT-TAKING GLUCAGON EMERGENCY 1 MG KIT DIRECTED INJECTION NOT-TAKING SENNA LAXATIVE 8.6 MG TABLET 2 TABLETS AT BEDTIME NEEDED ORALLY ONCE A DAY NOT-TAKING TRADJENTA 5 MG TABLET 1 TABLET ORALLY ONCE A DAY AT 900 NOT-TAKING ELIQUIS 5MG TABLET 1TAB ORAL TWICE DAILY NOT-TAKING ACETAMINOPHEN-CODEINE #4 300-60 MG TABLET 1 TABLET NEEDED ORALLY Q8H PRN MDD3 NOT-TAKING POLYETHYLENE GLYCOL POWDER 17MG Q OTHER DAY NOT-TAKING JANUVIA 50 MG TABLET 1 TAB ORALLY ONCE A DAY NOT-TAKING METFORMIN HCL 1000 MG TABLET 1 TABLET WITH MEALS ORALLY TWICE A DAY NOT-TAKING ACETAMINOPHEN 500 MG TABLET 1 TABLET NEEDED ORALLY EVERY 6 HRS PRN PAIN OR FEVER MDD=4 TAKE WITH TRAMADOL NOT-TAKING TRULICITY 0.75 MG/0.5ML SOLUTION PEN-INJECTOR 0.5 ML SUBCUTANEOUS WEEKLY NOT-TAKING METHOTREXATE 2.5 MG TABLET 7 TABS ORALLY EVERY WED NOT-TAKING SYSTANE 0.4-0.3 % SOLUTION 1 DROP INTO AFFECTED EYE NEEDED OPHTHALMIC 24 TIME(S) A DAY NOT-TAKING ONDANSETRON 4 MGS 1 TAB ORAL NEEDED FOR NAUSEA NOT-TAKING TORSEMIDE 20 MG TABLET 1 ORALLY AT 1400 DAILY NOT-TAKING TRIAMCINOLONE ACETONIDE 0.025 % CREAM 1 APPLICATION TO AFFECTED AREA EXTERNALLY NEEDED NOT-TAKING NYSTATIN [id number] UNIT/GM CREAM 1 APPLICATION TO AFFECTED AREA EXTERNALLY TWICE A DAY NOT-TAKING GUAIFENESIN-DM 100-10 MG/5ML SYRUP 10 ML NEEDED ORALLY EVERY 4 HRS NOT-TAKING DOCUSATE SODIUM 100 MG CAPSULE 1 CAPSULE ORALLY BID NOT-TAKING CALCIPOTRIENE 0.005 % OINTMENT 1 APPLICATION TO AFFECTED AREA EXTERNALLY BID FOR PSORASIS NOT-TAKING OXYCODONE-ACETAMINOPHEN 5-325 MG TABLET 1 TABLET NEEDED ORALLY EVERY 6 HRS PRN PAIN MDD=4 NOT-TAKING KETOCONAZOLE 2 % CREAM 1 APPLICATION TO AFFECTED AREA EXTERNALLY ONCE A DAY NOT-TAKING NORCO 10-325 MG TABLET 1 TABLET NEEDED ORALLY EVERY 6 HRS PRN PAIN MDD=4 NOT-TAKING FUROSEMIDE 40 MG TABLET 1 TABLET ORALLY DAILY IN THE AM, NOTES: IN AM NOT-TAKING HYDROCODONE-ACETAMINOPHEN 10-325 MG TABLET 1 TAB ORALLY EVERY 4- 6 HRSMDD4 NOT-TAKING LASIX 20 MG TABLET 1 TABLET ORALLY ONCE A DAY IN THE AFTERNOON, NOTES: IN AFTERNOON NOT-TAKING MECLIZINE HCL 25 MG TABLET CHEWABLE 1 TABLET ORALLY THREE TIMES A DAY PRN NOT-TAKING ZOLPIDEM TARTRATE 12.5 MG TABLET EXTENDED RELEASE 2 TABLET AT BEDTIME NEEDED ORALLY ONCE A DAY NOT-TAKING TAMSULOSIN HCL 0.4 MG CAPSULE 1 CAPSULE 30 MINUTES AFTER THE SAME MEAL EACH DAY ORALLY ONCE A DAY NOT-TAKING SPIRONOLACTONE 25 MG TABLET 1 TABLET ORALLY ONCE A DAY MEDICATION LIST REVIEWED AND RECONCILED WITH THE PATIENT PAST MEDICAL HISTORY BPH HYPERLIPIDEMIA DVT GOUT KIDNEY STONES PNEUMONIA HYPERTENSION CHF ? TB COPD HTN AFIB DM TYPE 2 HYPOTHYROID DRY EYES PSORIASIS INSOMNIA CHRONIC PAIN SYNDROME CONSTIPATION REBEKAH HEART FAILURE UNSPECIFIED UNSPECIFIED ANEMIA BLOODY STOOLS, LOWER GI BLEED ALLERGIES INDOCIN: HALLUCINATION - SIDE EFFECTS SURGICAL HISTORY TURP CATARACT CYSTOSCOPY SEVERAL LEFT ARM SURG AND TONSILLECTOMY DISTANT PAST LITHOTRIPSY COLONOSCOPY, FIXED GI BLEED WATCHMAN PROCEDURE 02/2019 FAMILY HISTORY FATHER: MOTHER: 2 BROTHER(S) , 2 SISTER(S) . 2 SON(S) , 4 DAUGHTER(S) . SOCIAL HISTORY GENERAL: TOBACCO USE ARE YOU A:FORMER SMOKER HOW LONG HAS IT BEEN SINCE YOU LAST SMOKED?> 10 YEARS PAIN CLINIC PFS, CLERGY, PUBLIC HEALTH REFERRALS PFS REFERRAL NEEDED?NO CLERGY REFERRAL NEEDED?NO PUBLIC HEALTH REFERRAL NEEDED?NO WAS THE PROVIDER NOTIFIED OF ANY PERTINENT INFO?YES HAS THE PATIENT BEEN EDUCATED REGARDING HIS/HER PLAN OF CARE?YES HAS THE PATIENT BEEN EDUCATED REGARDING PAIN, THE RISK FOR PAIN, THE IMPORTANCE OF EFFECTIVE PAIN MANAGEMENT, AND THE PAIN ASSESSMENT PROCESS?YES LATEX QUESTIONNAIRE LATEX ALLERGY : HAVE YOU EVER DEVELOPED ANY TYPE OF REACTION AFTER HANDLING LATEX PRODUCTS SUCH RUBBER GLOVES, CONDOMS, DIAPHRAGMS, BALLOONS, SOCKS, OR UNDERWEAR?NO LATEX ALLERGY : HAVE YOU EVER DEVELOPED ANY TYPE OF REACTION DURING OR AFTER DENTAL APPOINTMENT, VAGINAL/RECTAL EXAMINATION, SURGICAL PROCEDURE, OR ANY OTHER EXPOSURE?NO LATEX RISK : HAVE YOU EVER HAD ANY DIFFICULTY BREATHING OR HIVES AFTER EATING OR HANDLING ANY FRUITS, OR VEGETABLES; SUCH KIWI, BANANAS, STONE FRUITS, OR CHESTNUTSNO LATEX RISK : DO YOU HAVE A PREVIOUS PERSONAL HISTORY OF MORE THAN NINE SURGERIES, SPINA BIFIDA, OR REPEATED CATHERIZATIONS? NO LATEX RISK : ARE YOU FREQUENTLY EXPOSED TO LATEX PRODUCTS IN YOUR OCCUPATION?NO DATE ASKED : 09/29/2018 OTHERS AT HOME: LIVES AT THE [facility]. ADVANCE DIRECTIVE ADVANCE DIRECTIVE DISCUSSED WITH PATIENT:YES HCP - MARITZA MARIE (DAUGHTER) [phone] ZOROASTRIANISM [id number] BAPTIST NO SYNA[place]UE BELIEFS THAT WOULD IMPACT HEALTH CARE. LANGUAGE LANGUAGES SPOKEN:SALVADOREAN NEW PATIENT PAIN DIARY FROM 0-10, WHAT LEVEL IS YOUR PAIN TODAY?7 BMI CARE GOAL FOLLOW-UP BELOW NORMAL BMI FOLLOW-UPDIETARY EDUCATION FOR WEIGHT GAIN ALCOHOL SCREENING DID YOU HAVE A DRINK CONTAINING ALCOHOL IN THE PAST YEAR?NO POINTS0 INTERPRETATIONNEGATIVE RECREATIONAL DRUG USE DRUG USE?NO PATIENT DENIES ABUSE OR MISSUSED OF ANY MEDICATION. PATIENT DENIES USE OF ANY ILLEGAL SUBSTANCE INCLUDING MARIJUANA OR COCAINE. LEARNING BARRIERS / SPECIAL NEEDS HEARING IMPAIRED?YES VISION IMPAIRED?YES COGNITIVELY IMPAIRED?NO :HEARING AIDES :CORRECTIVE LENSES SPECIAL DEVICES?YES :WHEELCHAIR PATIENT IS NOT A CURRENT SMOKER OR DOES NOT ABUSE ALCOHOL.REVIEWED WITH PATIENT 02/23/18 1118 JS05/25/18 REVIEWED WITH PT. TREEIEWED WITH PATIENT 01/22/19 1024 NLJREVIEWED WITH PATIENT 03/27/19 1134 JS. HOSPITALIZATION/MAJOR DIAGNOSTIC PROCEDURE SURGERY RELATED VERTIGO 11/2018 SURGERY RELATED 02/2019 REVIEW OF SYSTEMS REVIEWED BY: PROVIDER: AFSANEH LEE . CONSTITUTIONAL: ANY CHANGE IN YOUR MEDICAL CONDITION? YES, STATES WATCHMAN PROCEDURE PERFORMED ABOUT 1 WEEK AGO . CHILLS NO . FEVER NO . INFECTION: DO YOU HAVE NEW INFECTIONS? NO . DO YOU HAVE HISTORY OF MRSA? YES, HISTORY OF IN FOOT . MUSCULOSKELETAL: ANY NEW PATTERNS OF PAIN OR NUMBNESS? NO . GASTROENTEROLOGY: ANY NEW CHANGE IN BOWEL CONTROL? NO . GENITOURINARY: ANY NEW CHANGE IN BLADDER CONTROL? YES, STATES INCONTINENCE/CAN'T CONTROL BLADDER SINCE RE-STARTING THE TORSEMIDE . IS THERE A CHANCE YOU COULD BE ? NO . HEMATOLOGY/LYMPH: DO YOU TAKE ANY BLOOD THINNERS? (FOR EXAMPLE- COUMADIN, PLAVIX, AGGRENOX, PLATEL, PRADAXA, OR XARELTO) YES, ELIQUIS . WHEN WAS YOUR LAST DOSE? DATE: 03/27/19TIME: 0700 . NEUROLOGY: HAVE YOU FALLEN IN THE PAST 12 MONTHS? NO . ANY NEW EXTREMITY NUMBNESS OR WEAKNESS? NO . CARDIOLOGY: DO YOU HAVE A PACEMAKER OR DEFIBRILLATOR? NO . RESPIRATORY: HAVE YOU BEEN SICK IN THE PAST WEEK? NO . FEVER NO . FLU LIKE SYMPTOMS? NO . COUGH NO . INTEGUMENTARY: DO YOU HAVE ANY RASHES OR OPEN SORES? YES, RASH/SORE AREA TO BOTTOM . ALLERGIC/IMMUNO: ARE YOU ALLERGIC TO IV DYE? NO . ANY NEW ALLERGIES? NO . PSYCHIATRIC: DO YOU HAVE THOUGHTS OF HURTING YOURSELF OR SOMEONE ELSE? NO . ARE YOU ABUSED, NEGLECTED, OR IN AN UNSAFE ENVIRONMENT? NO . ENDOCRINOLOGY: ARE YOU DIABETIC? YES . OTHER: DO YOU NEED ANY PRESCRIPTIONS? NO . IF YES, PLEASE LIST: ____ . ANY NEW PROBLEMS WITH YOUR MEDICATIONS? YES, TORSEMIDE . WHEN DID YOU LAST EAT? ____ . WHEN DID YOU LAST DRINK? ____ . WHAT DID YOU LAST DRINK? ____ . NAME OF PERSON DRIVING YOU HOME? ____ . DO YOU HAVE ANY OTHER QUESTIONS OR CONCERNS FLU VACCINE 03/08/19 . VITAL SIGNS WT 178.5 LBS, HT 74", BMI 22.92 INDEX, BP 119/70 MM HG, HR 88 /MIN, RR 18 /MIN, TEMP 97.7 F, OXYGEN SAT % 96%, SAFE IN ENV? (Y/N) YES, NA INITIALS AW 1129, REVIEWED BY: JS. EXAMINATION GENERAL EXAMINATION: GENERALNO ACUTE DISTRESS, WELL NOURISHED AND HYDRATED. PSYCHAPPROPRIATE MOOD AND AFFECT . LUNGS:CLEAR TO AUSCULTATION BILATERALLY, NO WHEEZES, RHONCHI, RALES. HEART:HR IRREGULAR WITH GRADE II MURMUR NOTED. 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 GIVEN PRESENTING SYMPTOMS AND RESULTS OF PHYSICAL EXAMINATION RECOMMENDED CONTINUATION OF CURRENT MEDICATION REGIMEN WITH FOLLOW-UP IN 3 MONTHS. PATIENT HAS EXPRESSED UNDERSTANDING OF AND WAS IN AGREEMENT WITH TREATMENT PLAN. GIVEN TIME TO ASK QUESTIONS AND EXPRESS CONCERNS., ISTOP REGISTRY REVIEWED AND DEMONSTRATES COMPLLIANCE. (REF # [id number] ) BRINGS IN MEDICATIONS WHICH IS APPROPRIATE FOR WHAT WAS DISPENSED. RECENT URINE TOXICOLOGY REVIEWED. NO UNAUTHORIZED MEDICATIONS. NO ILLICIT SUBSTANCES AND PRESCRIBED MEDICATIONS WERE PRESENT. PROCEDURE CODES FA211 ESTABILISHED PATIENT [facility] FACILITY CHARGE DISPOSITION & COMMUNICATION FOLLOW UP 3 MONTHS (REASON: CHRONIC PAIN) ELECTRONICALLY SIGNED BY SRINIVASAN ZAMUDIO ON 03/28/2019 AT 08:41 AM EDT DISCLAIMER : THIS IS A VISIT SUMMARY EXTRACTED FROM THE [facility] CHART. IT IS NOT A COPY OF THE [employer] [employer] PROGRESS NOTE. HERNANDO
== END ==
LOC: M PAIN 11:00
PROVIDERS: ATTEND Family Medicine
DX: M46.96 Unspecified inflammatory spondylopathy, lumbar region (principal); N40.0 Benign prostatic hyperplasia without lower urinary tract symptoms; E78.5 Hyperlipidemia, unspecified; M10.9 Gout, unspecified; Z87.442 Personal history of urinary calculi; I11.0 Hypertensive heart disease with heart failure; I50.9 Heart failure, unspecified; J44.9 Chronic obstructive pulmonary disease, unspecified; I48.91 Unspecified atrial fibrillation; E11.9 Type 2 diabetes mellitus without complications; E03.9 Hypothyroidism, unspecified; H04.123 Dry eye syndrome of bilateral lacrimal glands; L40.9 Psoriasis, unspecified; G47.00 Insomnia, unspecified; G89.4 Chronic pain syndrome; K59.00 Constipation, unspecified; G47.33 Obstructive sleep apnea (adult) (pediatric); D64.9 Anemia, unspecified; Z87.891 Personal history of nicotine dependence; Z79.01 Long term (current) use of anticoagulants; Z79.82 Long term (current) use of aspirin; Z79.891 Long term (current) use of opiate analgesic; Z79.899 Other long term (current) drug therapy; Z88.8 Allergy status to other drugs, medicaments and biological substances

== ENCOUNTER 2019-04-12 18:17 | Emergency (ER) | payer MEDICARE, MEDICAID ==
[~2019-04-12] VITALS: Ht 188 cm; Wt 87.0 kg
[2019-04-12] MEDS ORDERED: MIRA1POW3 PO (19:20)
[2019-04-12] MEDS ORDERED: TORS20TA2 PO (19:20)
[2019-04-12] MEDS ORDERED: ELIQ2.5T PO (19:20)
[2019-04-12] MEDS ORDERED: ACETAMINOPHEN TAB 650MG DOSE (2X325MG) PO ONE (19:30)
[2019-04-12] MEDS ORDERED: MORP-69 PO (19:37)
[2019-04-12] MEDS ORDERED: SENN8.6T58 PO (19:37)
[2019-04-12] MEDS ORDERED: SENN8.6T28 PO (19:37)
[2019-04-12] MEDS ORDERED: NS 500 ML IV ONE (19:45)
[2019-04-12] MEDS ORDERED: RA M10TA PO (19:52)
[2019-04-12] MEDS ORDERED: LANTINJ4 SC (19:52)
[2019-04-12] MEDS ORDERED: MILKSUS PO (19:52)
--- NOTE | 2019-04-12 20:04 | REP ---
Two-view chest: New 04/12/2019. Indication: Dyspnea. Comparison: 01/15/2019. Findings: Chronic prominent interstitial markings are redemonstrated. There is no focal airspace consolidation. No pleural effusion or pneumothorax is detected. The cardiac silhouette is not enlarged. Impression: No acute cardiopulmonary process. Chronic interstitial changes. Electronically Signed by Víctor Mendes DO 04/12/2019 07:55 P
[2019-04-12 20:21] LABS: BASO # 0.1 10^3/uL (0.0-0.2); BASO % 0.6 % (0.0-1.0); EOS # 0.2 10^3/uL (0.0-0.5); EOS % 2.1 % (0.0-3.0); HEMATOCRIT 32.3 % (42.0-52.0); HEMOGLOBIN 10.7 g/dl (13.5-17.5); LYMPH # 1.3 10^3/uL (1.5-5.0); MEAN CORPUSCULAR HEMOGLOBIN 33.2 pg (27.0-33.0); MEAN CORPUSCULAR HGB CONC 33.1 g/dl (32.0-36.5); MEAN CORPUSCULAR VOLUME 100.3 fl (80.0-96.0); MONO # 0.7 10^3/uL (0.0-0.8); MONO % 6.6 % (0.0-5.0); NEUTROPHILS # 8.7 10^3/uL (1.5-8.5); PLATELET COUNT, AUTOMATED 121 10^3/uL (150-450); RED BLOOD COUNT 3.22 10^6/uL (4.30-6.10); WHITE BLOOD COUNT 11.1 10^3/uL (4.0-10.0)
[2019-04-12 21:10] LABS: ALBUMIN 3.3 GM/DL (3.2-5.2); BILIRUBIN,DIRECT 0.3 MG/DL (0.0-0.2); CALCIUM LEVEL 9.2 MG/DL (8.8-10.2); CREATININE FOR GFR 1.49 MG/DL (0.70-1.30); GLOMERULAR FILTRATION RATE 47.8 (>35); TOTAL PROTEIN 7.7 GM/DL (6.4-8.2)
[2019-04-12 21:11] LABS: INFLUENZA A AMPLIFICATION NEGATIVE (NEGATIVE); INFLUENZA B AMPLIFICATION NEGATIVE (NEGATIVE)
[2019-04-12 23:00] VITALS: BP 107/59
== END 2019-04-13 00:16 | disposition home or self-care (01) ==
LOC: M ED 18:17
DX: R50.9 Fever, unspecified (principal); E11.9 Type 2 diabetes mellitus without complications; I50.9 Heart failure, unspecified; I48.91 Unspecified atrial fibrillation; G89.29 Other chronic pain; M54.5 Low back pain; Z79.899 Other long term (current) drug therapy; Z79.82 Long term (current) use of aspirin; Z79.4 Long term (current) use of insulin; Z79.01 Long term (current) use of anticoagulants; Z88.8 Allergy status to other drugs, medicaments and biological substances

== ENCOUNTER 2019-04-16 17:54 | Emergency (ER) | payer MEDICARE, MEDICAID ==
[2019-04-16] MEDS ORDERED: MORP30TASA PO (19:03)
--- NOTE | 2019-04-16 20:14 | REPVR ---
PROCEDURE INFORMATION: Exam: US Duplex Left Lower Extremity Veins, Limited Exam date and time: 04/16/2019 7:54 PM Clinical history: 83 years old, male; Edema, localized; Lower extremity, left; Additional info: Swelling TECHNIQUE: Imaging protocol: Real-time Duplex ultrasound of the Left Lower Extremity with 2-D banuelos scale, color Doppler flow and spectral waveform analysis with image documentation. Limited exam focused on the left lower extremity veins. COMPARISON: US Duplex, Ext,LOWER veins,unilat LEFT 10/28/2018 8:43 PM FINDINGS: Left deep veins: Unremarkable. The common femoral, femoral, proximal profunda femoral and popliteal veins are patent without thrombus. Normal Doppler waveforms. Normal compressibility and/or augmentation response. Left superficial veins: Unremarkable. Saphenofemoral junction is patent without thrombus. Soft tissues: Unremarkable. IMPRESSION: No DVT of the left lower extremity. Electronically signed by: Onur Coker On 04/16/2019 20:14:01 PM
[2019-04-16 21:27] VITALS: BP 122/72
== END 2019-04-16 21:45 | disposition home or self-care (01) ==
LOC: M ED 17:54 → EDBD 17:54 → M ED 21:45
DX: R60.9 Edema, unspecified (principal); I50.9 Heart failure, unspecified; J44.9 Chronic obstructive pulmonary disease, unspecified; E11.9 Type 2 diabetes mellitus without complications; I48.91 Unspecified atrial fibrillation; N40.0 Benign prostatic hyperplasia without lower urinary tract symptoms; K21.9 Gastro-esophageal reflux disease without esophagitis; G47.33 Obstructive sleep apnea (adult) (pediatric); Z87.891 Personal history of nicotine dependence

== ENCOUNTER → 2019-04-16 | Outpatient (REF) | payer MEDICARE, MEDICAID ==
[~2019-04-16] MED LIST changes: +LANTINJ4 SC; +MILKSUS PO; +MIRA1POW3 PO; +MORP-69 PO; +RA M10TA PO; +SENN8.6T28 PO; +SENN8.6T58 PO
[2019-04-16 18:26] LABS: INR 1.22; PROTHROMBIN TIME 15.1 SECONDS (11.8-14.0)
== END ==
LOC: M LAB REF 17:20
PROVIDERS: ATTEND Internal Medicine
DX: R22.42 Localized swelling, mass and lump, left lower limb (principal)

== ENCOUNTER → 2019-04-24 | Outpatient (REF) | payer MEDICARE, MEDICAID ==
[2019-04-24 11:05] LABS: CALCIUM LEVEL 9.5 MG/DL (8.8-10.2); CREATININE FOR GFR 1.54 MG/DL (0.70-1.30); MAGNESIUM LEVEL 2.1 MG/DL (1.8-2.4)
== END ==
PROVIDERS: ATTEND Physician Assistant
DX: I48.21 Permanent atrial fibrillation (principal); I50.33 Acute on chronic diastolic (congestive) heart failure

== ENCOUNTER 2019-04-30 08:30 | Inpatient (IN) | payer MEDICARE, MEDICAID ==
[~2019-04-30] VITALS: Ht 188 cm; Wt 83.3 kg
[2019-04-30] VITALS (12 sets, daily range): BP systolic 102–118; BP diastolic 50–65
[~2019-04-30 08:30] MED LIST changes: +DIGO0.123 PO; +MAGN400O49 PO; -MILKSUS PO; +OMEP-172 PO; -OMEP20CA4 PO
[2019-04-30 10:14] LABS: HEMATOCRIT 22.4 % (42.0-52.0); HEMOGLOBIN 7.4 g/dl (13.5-17.5); MEAN CORPUSCULAR HEMOGLOBIN 33.3 pg (27.0-33.0); MEAN CORPUSCULAR VOLUME 100.9 fl (80.0-96.0); PLATELET COUNT, AUTOMATED 190 10^3/uL (150-450); RED BLOOD COUNT 2.22 10^6/uL (4.30-6.10)
--- NOTE | 2019-04-30 10:18 | REP ---
PORTABLE CHEST: AP portable view of the chest is performed and compared to prior studies, most recent of which is 04/12/2019. There is mild cardiomegaly. Chronic interstitial changes are stable with no definite superimposed acute infiltrate. There is mild calcification of the thoracic aorta. Mediastinal silhouette is unchanged. Metallic fixation is seen in the left humerus. IMPRESSION: Stable chronic changes with no definite superimposed acute infiltrate. Electronically Signed by Mikhail Pugh MD 04/30/2019 11:57 A
[2019-04-30 10:41] LABS: ALBUMIN 3.1 GM/DL (3.2-5.2); BILIRUBIN,TOTAL 0.8 MG/DL (0.2-1.0); CALCIUM LEVEL 8.9 MG/DL (8.8-10.2); CREATININE FOR GFR 1.66 MG/DL (0.70-1.30); GLOMERULAR FILTRATION RATE 42.2 (>35); POTASSIUM SERUM 4.3 MEQ/L (3.5-5.1)
--- NOTE | 2019-04-30 10:55 | REP ---
Clinical: Left lower extremity pain and swelling . Technique: Pugh scale and color Doppler evaluation using linear high frequency transducer. Findings: Ultrasound examination of the left lower extremity deep venous structures from the common femoral vein to the popliteal vein demonstrates normal compressibility flow and wave patterns in response to respiration and augmentation. There is no evidence for deep venous thrombosis. Impression: No evidence for deep venous thrombosis. Electronically Signed by Thomas Landaverde MD 04/30/2019 10:46 A
[2019-04-30] MEDS ORDERED: ACETAMINOPH W/CODEINE #3 TAB UD PO ONE (11:00)
[2019-04-30] MEDS ORDERED: MOM 30ML SUSPENSION UDC PO PRN (11:15)
[2019-04-30] MEDS ORDERED: SENNA 8.6 MG TAB (SENOKOT) PO PRN (11:15)
[2019-04-30] MEDS ORDERED: NITROGLYCERIN 0.4 MG SUBL TABLET SL PRN (11:15)
[2019-04-30] MEDS ORDERED: MIRALAX *UNIT DOSE* 17GM PACKET PO PRN (11:15)
--- NOTE | 2019-04-30 11:48 | HPEPDOC ---
General Date of Admission 04/30/19 Date of Service: Apr 30, 2019 Chief Complaint The patient is a 83-year-old male admitted with a reason for visit of doesnt feel well. Source: Patient Exam Limitations: No limitations Timing/Duration: 24 hours Severity: Moderate Associated Symptoms: Cough, Weakness History of Present Illness Patient is 83 years old male with past medical history of CHF with preserved EF, diabetes, Moderate Aortic stenosis, Atrial fibrillation not on any anticoagulati on, COPD not on oxygen , REBEKAH on CPAP presented to the ED with weakness. In ER patient was found to have stool positive for blood, hemoglobin was 7.4, white blood count 15.4, chest x-ray did not show acute cardiopulmonary changes. Of note patient has a history of GI bleed in September 2018 requiring transfusion of PRBC with colonoscopies x 2, first one found a red spot in splenic flexure which was clipped also diverticulosis and internal hemorrhoids, however continued to bleed so had angiogram of celiac artery and superior mesenteric artery 10/18 which did not show any bleeding. He continued to bleed so had a second colonoscopy which just showed clots through out the colon, then had a bleeding scan which was positive with a bleeding pattern suggestive of proximal small intestine/ duodenal bleeding source underwent gastroduodenal artery embolization on 10/24 with stabilization of HH. Also patient complains of cough with some brownish sputum Home Medications Scheduled Allopurinol (Allopurinol) 100 Mg Tab, 200 MG PO DAILY, (Reported) Apixaban (Eliquis) 2.5 Mg Tablet, 2.5 MG PO BID, (Reported) 0900, 1700 Aspirin (Aspirin) 81 Mg Tab.chew, 81 MG PO DAILY, (Reported) Calcium Carbonate/Vitamin D3 (Oyster Shell 500-Vit D3 200 Tb) 1 Each Tablet, 2 TAB PO QHS, (Reported) Digoxin (Digoxin) 125 Mcg Tab, 125 MCG PO DAILY, (Reported) Docusate Sodium (Docusate Sodium) 100 Mg Capsule, 200 MG PO QHS, (Reported) Ferrous Gluconate (Ferrous Gluconate) 324 Mg Tab, 648 MG PO DAILY, (Reported) Fexofenadine HCl (Melinda Allergy) 180 Mg Tab, 180 MG PO DAILY, (Reported) Folic Acid (Folic Acid) 1 Mg Tab, 1 MG PO DAILY, (Reported) Insulin Glargine,Hum.rec.anlog (Lantus Solostar) 100 Unit/1 Ml Insuln.pen, 36 UNITS SC DAILY, (Reported) 0600 Levothyroxine Sodium (Levothyroxine Sodium) 125 Mcg Tab, 125 MCG PO DAILY, (Reported) 0600 Lovastatin (Lovastatin) 10 Mg Tab, 10 MG PO QHS, (Reported) Morphine Sulfate (Morphine Sulfate ER) 15 Mg Tabcr, 15 MG PO QHS, (Reported) Morphine Sulfate (Morphine Sulfate ER) 15 Mg Tablet.er, 30 MG PO DAILY, (Reported) Multivitamins (Thera M Plus Tablet) 1 Each Tablet, 1 TAB PO DAILY, (Reported) Naloxegol Oxalate (Movantik) 25 Mg Tablet, 25 MG PO DAILY, (Reported) [place]-3/Dha/Epa/Fish Oil (Fish Oil EC 1,000 mg Softgel) 1 Cap Cap, 1 CAP PO BID, (Reported) Omeprazole (Omeprazole) 20 Mg Tablet.dr, 20 MG PO DAILY, (Reported) Potassium Chloride (Potassium Chloride) 20 Meq Tab.er.prt, 20 MEQ PO BID, (Reported) Sennosides (Senna) 8.6 Mg Tablet, 2 TAB PO DAILY, (Reported) Torsemide (Torsemide) 20 Mg Tablet, 40 MG PO DAILY, (Reported) Scheduled PRN Acetaminophen (Acetaminophen) 325 Mg Tablet, 650 MG PO Q4H PRN for PAIN / FEVER, (Reported) Acetaminophen with Codeine (Acetaminophen-Cod #3 Tablet) 1 Each Tablet, 1 TAB PO Q6H PRN for PAIN, (Reported) Magnesium Hydroxide (Milk of Magnesia) 400 Mg/5 Ml Oral.susp, 2,400 MG PO DAILY PRN for CONSTIPATION, (Reported) Melatonin (Melatonin) 10 Mg Tablet, 10 MG PO QHS PRN for SLEEP, (Reported) Nitroglycerin (Nitrostat) 0.4 Mg Subl, 0.4 MG SL NITRO PRN for CHEST PAIN, (Reported) Polyethylene Glycol 3350 (Miralax) 17 Gm Powd.pack, 17 GM PO DAILY PRN for CONSTIPATION, (Reported) Sennosides (Senna) 8.6 Mg Tablet, 1 TAB PO QHS PRN for CONSTIPATION, (Reported) Allergies Coded Allergies: Beta-Blockers (Beta-Adrenergic Bloc (Verified Allergy, Unknown, 04/16/19) spironolactone (Verified Allergy, Unknown, 04/16/19) warfarin (Verified Allergy, Unknown, 04/16/19) indomethacin (Verified Adverse Reaction, Intermediate, HALLUCINATIONS, 04/16/19) Past Medical History Medical History Massive GIB in September 2018 requiring 22 units of PRBC Source as determined by blleeding scan proximal small bowel and had Gastroduodenal artery embolization. Moderate aortic stenosis, mild MR, mild TR, moderate pulmonary hypertension. He was evaluated by cardiology, and Dr. Mcmahon felt he was not a candidate for aortic valve repair/replacement. Rheumatic fever as a child Paroxysmal atrial fibrillation (PAF) Chronic back pain due to severe spinal stenosis Chronic Opiate use. Bilateral foot drop due to spinal stenosis and he wears bilateral ankle braces with a walker. HFpEF (LVEF 60-65%) 05/2018 COPD REBEKAH on CPAP GERD Gout Insulin Dependent DM Psoriasis DLP Hypothyroidism BPH Surgical History Lithotripsy x 2 TURP x 2 left arm reattached cataract surgery Esophageal dilatation Surgical History See above Family History I personally reviewed family history and found insignificant Social History * Smoker: Denies, former Smoker Alcohol: Denies Drugs: denies A-FIB/CHADSVASC A-FIB History Current/History of A-Fib/PAF?: Yes Current PO Anticoag Therapy: Yes (I stopped Eliquis due to GI bleed) Review of Systems Constitutional: Reports: Malaise, Weakness, Fatigue; Denies: Chills, Fever Eyes: Denies: Pain, Vision change ENT: Denies: Head Aches Skin: Denies: Rash, Lesions Pulmonary: Reports: Cough Cardiovascular: Denies: Chest Pain, Palpitations Gastrointestinal: Denies: Nausea, Vomiting, Abdominal Pain Genitourinary: Denies: Dysuria, Frequency Hematologic: Denies: Bruising Endocrine: Denies: Polydipsia Musculoskeletal: Denies: Neck Pain, Back Pain Neurological: Denies: Weakness, Numbness Psych: Reports: Mood Normal Physical Examination General Exam: Positive: Alert, Cooperative Eye Exam: Positive: PERRLA ENT Exam: Positive: Atraumatic Neck Exam: Positive: Supple; Negative: JVD Chest Exam: Positive: Clear to auscultation Heart Exam: Positive: Irregular Rhythm Telemetry: Positive: Atrial fibrillation Abdomen Exam: Positive: Normal bowel sounds Extremity Exam: Negative: Clubbing, Cyanosis Skin Exam: Positive: Nl turgor and temperature Neuro Exam: Positive: Normal Gait, Strength at 5/5 X4 ext, Cranial Nerves 3-12 NL Psych Exam: Positive: Mental status NL Vital Signs Vital Signs Date Time Temp Pulse Resp B/P (MAP) Pulse Ox O2 Delivery O2 Flow Rate FiO2 04/30/19 11:35 99.1 115 19 107/58 96 Room Air Laboratory Data Labs 24H Laboratory Tests 2 04/30/19 09:54: Bedside Prothrombin Time INR 1.2, Prothrombin Time (MISC) 14.2 04/30/19 09:55: Nucleated Red Blood Cells % (auto) 0.3H, Anion Gap 8, Glomerular Filtration Rate 42.2, Calcium Level 8.9, Total Bilirubin 0.8, Aspartate Amino Transf (AST/SGOT) 18, Alanine Aminotransferase (ALT/SGPT) 20, Alkaline Phosphatase 84, Total Protein 7.0, Albumin 3.1L, Albumin/Globulin Ratio 0.79L CBC/BMP Laboratory Tests 04/30/19 09:55 Assessment/Plan Patient is 83 years old male with past medical history of CHF with preserved EF, diabetes, Moderate Aortic stenosis, Atrial fibrillation not on any anticoagulation, COPD not on oxygen , REBEKAH on CPAP presented to the ED with weakness. In ER patient was found to have stool positive for blood, hemoglobin was 7.4, white blood count 15.4, chest x-ray did not show acute cardiopulmonary changes. Problems (1) GI bleed Status: Acute Problem Text: Patient has history of upper GI bleed with gastroduodenal artery embolization We'll transfuse 2 units of blood IV fluid PPI I will stop Eliquis. Given his history of multiple GI bleeds in the past and massive bleeding in September 2018, Eliquis most likely needs to be stopped indefinitely. 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 Appreciate/agree with GI consult (2) Atrial fibrillation Status: Acute Problem Text: Rate is under control for now Eliquis and hold due to acute GI bleed (3) ANTHONY (acute kidney injury) Status: Acute Problem Text: Secondary to volume contraction IV fluid Continue to monitor (4) Left leg swelling Status: Acute Problem Text: Mild left leg swelling Doppler ultrasound negative for DVT No redness (5) Anemia Status: Acute Problem Text: Secondary to GI bleed (6) COPD exacerbation Status: Acute Problem Text: Patient complains of increased cough with brownish sputum produc tion Patient has leukocytosis of 15, however he is afebrile Levofloxacin IV (7) Diabetes mellitus Status: Chronic Problem Text: Insulin sliding scale Detemir twice a day Plan / VTE VTE Prophylaxis Ordered?: No VTE Exclusion Pharmacological: Active Bleeding GIFTY LYMAN DO Apr 30, 2019 11:48
[2019-04-30] MEDS: HumaLOG INSULIN (NovoLOG) PER UNIT SC SCH ×3 (12:00→21:00)
[2019-04-30] MEDS ORDERED: GLUCAGON FOR INJ 1 MG VIAL (J1610) SC PRN (12:15)
[2019-04-30] MEDS ORDERED: GLUCOSE 4 GM CHEW TABLET PO PRN (12:15)
[2019-04-30] MEDS ORDERED: DEXTROSE 50% 50 ML SYRINGE IV PRN (12:15)
[2019-04-30] MEDS: LEVEMIR (INSULIN DETEMIR) 1 UNITS/0.01ML SC SCH ×2 (12:27→22:32)
[2019-04-30] MEDS: PANTOPRAZOLE 40MG INJ (PROTONIX) (C9113) IV SCH ×2 (14:55→22:32)
[2019-04-30] MEDS: FERROUS GLUCONATE 324 MG TAB PO SCH (14:56)
[2019-04-30] MEDS: allopurinoL 100 MG TAB PO SCH (14:56)
[2019-04-30] MEDS: OMEGA-3 1000MG CAPSULE PO SCH ×2 (14:56→22:29)
[2019-04-30] MEDS: ASPIRIN 81 MG CHEW TABLET PO SCH (14:57)
[2019-04-30] MEDS: DIGOXIN 0.125 MG TAB PO SCH (14:57)
[2019-04-30] MEDS: FOLIC ACID 1 MG TAB PO SCH (14:57)
[2019-04-30] MEDS: POTASSIUM CHLORIDE 10 MEQ SR TABLET PO SCH ×2 (14:57→22:29)
[2019-04-30] MEDS: TORSEMIDE 20 MG TAB PO SCH (14:58)
[2019-04-30 15:26] LABS: INR 1.39; PROTHROMBIN TIME 16.8 SECONDS (11.8-14.0)
--- NOTE | 2019-04-30 15:56 | ECGEPIP ---
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 Order Number: [id number] Reading MD: Ryan Garcia Measurements Intervals [place] Rate: 100 P: FL: 0 QRS: -10 QRSD: 145 T: -46 QT: 369 QTc: 477 Interpretive Statements ATRIAL FIBRILLATION WITH RAPID VENTRICULAR RESPONSE RIGHT BUNDLE BRANCH BLOCK Nonspecific T wave abnormality Baseline artifact increased from tracing done 02-28-19 Electronically Signed on 04-30-2019 15:56:24 EST by Ryan Garcia
[2019-04-30] MEDS: FEXOFENADINE 60 MG TAB PO SCH (18:40)
--- NOTE | 2019-04-30 18:50 | CR.PDOC ---
General Date of Consultation: Apr 30, 2019 Referring Provider: GIFTY MEJIA DO Attending Physician: SULLY FOSTER MD Consultation Primary physician/ hospitalist: -Dr. Gifty Mejia Reason for consult: -Anemia. HPI: - 83-year-old male patient with DM type II, CHF , moderate aortic stenosis and atrial fibrillation on Eliquis, COPD, not on home oxygen, REBEKAH on CPAP, was sent from [facility], for symptoms of fatigue. Patient is noted with worsening anemia from baseline and GI was consulted for the same. Patient reports having diarrheal bowel movements with darker stools, and stool testing was positive for blood. Patient denies any other active GI symptoms. Pertinent negative GI symptoms: Patient denies fever, sick contacts, recent travel, nausea, vomiting, abdominal pain, loss of appetite, early satiety or unintentional weight loss. No history of hematemesis. Off note: Patient had previous history of massive GI bleeding, with multiple transfusions and subsequent embolization by vascular surgery. Review of Systems: GI: as stated above CVS: No chest pain, No palpitations, No leg swelling. RS: No Shortness of breath, No Wheezing, no cough CARE TECHNICIAN: No dizziness, No motor weakness, No sensory problems Hematology: No bruising, No gum bleeding, Musculoskeletal: No joint pain, ambulating well. Skin: No rash : No hematuria, No burning sensation of the urine ENT: No ear discharge/ pain, No dysphagia. Eyes: No photophobia. Jaundice Home medications: reviewed. Antithrombotic agents: - On Eliquis Medical h/o: As above. Surgical h/o: None on abdomen. Social h/o: Alcohol: -Denies, smoking: Former smoker, IVDA/ drugs: Denies. Family h/o of GI cancers - None Prior Endoscopies: Multiple EGD and colonoscopy in September [address] Vallecillo. Prior GI evaluations: -Previously seen by Dr. Vallecillo Exam: Vitals: reviewed General: Alert and oriented x 3, not in distress HEENT: Conjunctival pallor, no icterus. Normal oropharynx, NO cervical lymph nodes. Chest: symmetric with bilateral clear air entry, CVS: S1, S2 heard, normal, no murmurs . Abdomen: non-distended, soft, non-tender, no palpable masses, normal bowel sounds heard. Rectal exam: Patient refused Extremities: Unilateral left leg edema, pulses palpable. CARE TECHNICIAN: no focal motor or sensory deficits. Moves all extremities Skin: no rash. Labs: reviewed. Imaging: reviewed. Doppler ultrasound lower extremity, rule out DVT. Impression: - Symptomatic anemia with progressive decrease in hemoglobin and hematocrit with darker stools and occult blood positive, in a patient with aortic stenosis and on anticoagulation with Eliquis --- DDx-- likely AVM bleeding ( possible Hydes syndrome) vs less likely PUD. Recommendations: - Patient educated about the test results, possible differential diagnoses and All questions answered. - Monitor hemoglobin and hematocrit and transfuse as needed to keep hemoglobin above 8-9 gm/dL ( due to aortic stenosis). - Avoid NSAIDs. - Clear liquid diet for now until tomorrow 8 AM. - Risks and benefits of anticoagulation discussed with patient and he verbalized understanding and agreed to hold Eliquis. - Will schedule for EGD tomorrow after adequate resuscitation and off of eliquis for atleast 24 hours. - The procedure, indications, risks (bleeding, perforation, infection, hypotension, respiratory depression, allergy, need for endotracheal intubation, surgery, colostomy, cardiac arrest, even ), benefits, limitations (e.g., missing a lesion), and all other alternatives (including no intervention) were explained to the patient who understood and agreed for the procedure. - Patient has healthcare proxy (Daughter), but he is AAO x 3 and able to make decisions and he wanted to sign the consent himself. Plan of care discussed with patient and primary team. Patient verbalized understanding and agreed with the plan. Vital Signs/I&O Vital Signs Date Time Temp Pulse Resp B/P (MAP) Pulse Ox O2 Delivery O2 Flow Rate FiO2 04/30/19 18:28 96.3 98 16 103/50 97 Room Air 04/30/19 11:43 98 Laboratory Data CBC/BMP Laboratory Tests 04/30/19 09:55 Allergies Coded Allergies: Beta-Blockers (Beta-Adrenergic Bloc (Verified Allergy, Unknown, 04/16/19) spironolactone (Verified Allergy, Unknown, 04/16/19) warfarin (Verified Allergy, Unknown, 04/16/19) indomethacin (Verified Adverse Reaction, Intermediate, HALLUCINATIONS, 04/16/19) Home Medications Scheduled Allopurinol (Allopurinol) 100 Mg Tab, 200 MG PO DAILY, (Reported) Apixaban (Eliquis) 2.5 Mg Tablet, 2.5 MG PO BID, (Reported) 0900, 1700 Aspirin (Aspirin) 81 Mg Tab.chew, 81 MG PO DAILY, (Reported) Calcium Carbonate/Vitamin D3 (Oyster Shell 500-Vit D3 200 Tb) 1 Each Tablet, 2 TAB PO QHS, (Reported) Digoxin (Digoxin) 125 Mcg Tab, 125 MCG PO DAILY, (Reported) Docusate Sodium (Docusate Sodium) 100 Mg Capsule, 200 MG PO QHS, (Reported) Ferrous Gluconate (Ferrous Gluconate) 324 Mg Tab, 648 MG PO DAILY, (Reported) Fexofenadine HCl (Melinda Allergy) 180 Mg Tab, 180 MG PO DAILY, (Reported) Folic Acid (Folic Acid) 1 Mg Tab, 1 MG PO DAILY, (Reported) Insulin Glargine,Hum.rec.anlog (Lantus Solostar) 100 Unit/1 Ml Insuln.pen, 36 UNITS SC DAILY, (Reported) 0600 Levothyroxine Sodium (Levothyroxine Sodium) 125 Mcg Tab, 125 MCG PO DAILY, (Reported) 0600 Lovastatin (Lovastatin) 10 Mg Tab, 10 MG PO QHS, (Reported) Morphine Sulfate (Morphine Sulfate ER) 15 Mg Tabcr, 15 MG PO QHS, (Reported) Morphine Sulfate (Morphine Sulfate ER) 15 Mg Tablet.er, 30 MG PO DAILY, (Reported) Multivitamins (Thera M Plus Tablet) 1 Each Tablet, 1 TAB PO DAILY, (Reported) Naloxegol Oxalate (Movantik) 25 Mg Tablet, 25 MG PO DAILY, (Reported) [place]-3/Dha/Epa/Fish Oil (Fish Oil EC 1,000 mg Softgel) 1 Cap Cap, 1 CAP PO BID, (Reported) Omeprazole (Omeprazole) 20 Mg Tablet.dr, 20 MG PO DAILY, (Reported) Potassium Chloride (Potassium Chloride) 20 Meq Tab.er.prt, 20 MEQ PO BID, (Re ported) Sennosides (Senna) 8.6 Mg Tablet, 2 TAB PO DAILY, (Reported) Torsemide (Torsemide) 20 Mg Tablet, 40 MG PO DAILY, (Reported) Scheduled PRN Acetaminophen (Acetaminophen) 325 Mg Tablet, 650 MG PO Q4H PRN for PAIN / FEVER, (Reported) Acetaminophen with Codeine (Acetaminophen-Cod #3 Tablet) 1 Each Tablet, 1 TAB PO Q6H PRN for PAIN, (Reported) Magnesium Hydroxide (Milk of Magnesia) 400 Mg/5 Ml Oral.susp, 2,400 MG PO DAILY PRN for CONSTIPATION, (Reported) Melatonin (Melatonin) 10 Mg Tablet, 10 MG PO QHS PRN for SLEEP, (Reported) Nitroglycerin (Nitrostat) 0.4 Mg Subl, 0.4 MG SL NITRO PRN for CHEST PAIN, (Reported) Polyethylene Glycol 3350 (Miralax) 17 Gm Powd.pack, 17 GM PO DAILY PRN for CONSTIPATION, (Reported) Sennosides (Senna) 8.6 Mg Tablet, 1 TAB PO QHS PRN for CONSTIPATION, (Reported) SULLY FOSTER MD Apr 30, 2019 18:50
[2019-04-30] MEDS: DOCUSATE SODIUM 100 MG CAP PO SCH (19:43)
[2019-04-30] MEDS: CALCIUM/VITAMIN D 500 MG TAB PO SCH (22:29)
[2019-04-30] MEDS: SIMVASTATIN 10 MG TAB PO SCH (22:29)
[2019-04-30] MEDS: NS 1,000 ML IV SCH ×2 (22:31→22:36)
[2019-04-30] MEDS: MORPHINE 15 MG SA TAB PO SCH (22:31)
[2019-04-30] MEDS: LevoFLOXacin IV 750 MG in IV 1 EA IV SCH (22:31)
[2019-05-01] VITALS (15 sets, daily range): BP systolic 105–146; BP diastolic 52–66
[2019-05-01 00:22] LABS: HEMATOCRIT 24.7 % (42.0-52.0); HEMOGLOBIN 8.3 g/dl (13.5-17.5)
[2019-05-01] MEDS: ACETAMINOPH W/CODEINE #3 TAB UD PO PRN (02:23)
[2019-05-01] MEDS: LEVOTHYROXINE 125MCG TABLET (0.125MG) PO SCH (06:06)
[2019-05-01] MEDS: ACETAMINOPHEN TAB 650MG DOSE (2X325MG) PO PRN (06:11)
[2019-05-01 06:50] LABS: HEMATOCRIT 22.2 % (42.0-52.0); HEMOGLOBIN 7.5 g/dl (13.5-17.5); MEAN CORPUSCULAR HEMOGLOBIN 33.2 pg (27.0-33.0); MEAN CORPUSCULAR HGB CONC 33.8 g/dl (32.0-36.5); MEAN CORPUSCULAR VOLUME 98.2 fl (80.0-96.0); PLATELET COUNT, AUTOMATED 147 10^3/uL (150-450); RED BLOOD COUNT 2.26 10^6/uL (4.30-6.10)
[2019-05-01 07:16] LABS: CALCIUM LEVEL 8.6 MG/DL (8.8-10.2); CREATININE FOR GFR 1.54 MG/DL (0.70-1.30); POTASSIUM SERUM 4.1 MEQ/L (3.5-5.1)
[2019-05-01] MEDS ORDERED: NS 1,000 ML IV SCH (07:27)
[2019-05-01] MEDS: LEVEMIR (INSULIN DETEMIR) 1 UNITS/0.01ML SC SCH ×2 (07:55→20:57)
[2019-05-01] MEDS: HumaLOG INSULIN (NovoLOG) PER UNIT SC SCH ×4 (07:55→21:00)
[2019-05-01] MEDS: PANTOPRAZOLE 40MG INJ (PROTONIX) (C9113) IV SCH ×2 (07:56→21:51)
[2019-05-01] MEDS: FEXOFENADINE 60 MG TAB PO SCH (09:00)
[2019-05-01] MEDS: NS 1,000 ML IV SCH ×2 (09:43→20:50)
[2019-05-01] MEDS: OMEGA-3 1000MG CAPSULE PO SCH ×2 (10:00→20:54)
[2019-05-01] MEDS: MORPHINE 15 MG SA TAB PO SCH ×2 (10:01→20:56)
[2019-05-01] MEDS: TORSEMIDE 20 MG TAB PO SCH (10:40)
[2019-05-01] MEDS: ASPIRIN 81 MG CHEW TABLET PO SCH (10:40)
[2019-05-01] MEDS: FERROUS GLUCONATE 324 MG TAB PO SCH (10:41)
[2019-05-01] MEDS: POTASSIUM CHLORIDE 10 MEQ SR TABLET PO SCH ×2 (10:41→20:54)
[2019-05-01] MEDS: DIGOXIN 0.125 MG TAB PO SCH (10:42)
[2019-05-01] MEDS: allopurinoL 100 MG TAB PO SCH (10:42)
[2019-05-01] MEDS: MULTIVITAMINS/MINERALS THERAP 1 TAB PO SCH (10:43)
[2019-05-01] MEDS: FOLIC ACID 1 MG TAB PO SCH (10:43)
[2019-05-01] MEDS ORDERED: ONDANSETRON 4MG/2ML VIAL (J2405) As Ordered ONE (12:39)
[2019-05-01] MEDS ORDERED: LIDOCAINE 2% INJ 100 MG/5 ML SDV (FOR ANES.) As Ordered ONE ×2 (12:40→12:42)
[2019-05-01] MEDS ORDERED: dexameTHASONE 4 MG/ML 1ML VIAL (J1100) As Ordered ONE (12:40)
[2019-05-01] MEDS ORDERED: PROPOFOL 200 MG/20 ML VIAL As Ordered ONE (12:40)
[2019-05-01] MEDS ORDERED: PHENYLEPHRINE INJ 10MG/ML VIAL (J2370) As Ordered ONE (13:35)
--- NOTE | 2019-05-01 18:45 | IPNPDOC ---
Text Note Date of Service The patient was seen on 05/01/19. NOTE Subjective: Patient developed 2 large bowel movements with red blood covered stool. Patient denies fever, chills, nausea, vomiting, shortness of breath. He complains of low back pain which is chronic. Objective: General: NAD HEENT: PERRLA, EOMI, no JVD CV: S1-S2, irregularly irregular Lungs: Clear to auscultation Abdomen: Nontender, nondistended Extremities: No swelling no cyanosis Patient is 83 years old male with past medical history of CHF with preserved EF, diabetes, Moderate Aortic stenosis, Atrial fibrillation not on any anticoagulation, COPD not on oxygen , REBEKAH on CPAP presented to the ED with weakness. In ER patient was found to have stool positive for blood, hemoglobin was 7.4, white blood count 15.4, chest x-ray did not show acute cardiopulmonary changes. GI bleed Patient has history of upper GI bleed with gastroduodenal artery embolization We'll transfuse 2 units of blood today IV fluid PPI Eliquis on hold. Given his history of multiple GI bleeds in the past and massive bleeding in September 2018, Eliquis most likely needs to be stopped indefinitely. I will defer restart of Eliquis to compounding pharmacy technician Today EGD was postponed due low Hb (2) Atrial fibrillation Rate is under control for now Eliquis on hold due to acute GI bleed (3) ANTHONY (acute kidney injury) Secondary to volume contraction IV fluid Continue to monitor (4) Left leg swelling Mild left leg swelling Doppler ultrasound negative for DVT No redness (5) Anemia Status: Acute Problem Text: Secondary to GI bleed (6) COPD exacerbation Status: Acute Problem Text: Patient complains of increased cough with brownish sputum production Patient has leukocytosis of 15, however he is afebrile Levofloxacin IV (7) Diabetes mellitus Status: Chronic Problem Text: Insulin sliding scale Detemir twice a day VS,Fishbone, I+O VS, Fishbone, I+O Laboratory Tests 04/30/19 23:56 05/01/19 06:10 Vital Signs Date Time Temp Pulse Resp B/P (MAP) Pulse Ox O2 Delivery O2 Flow Rate FiO2 05/01/19 17:27 97.4 80 18 125/60 100 Room Air 05/01/19 10:01 98 I&O- Last 24 Hours up to 6 AM 05/01/19 06:00 Intake Total 2420 ml Output Total 300 ml Balance 2120 ml GIFTY LYMAN DO May 01, 2019 18:45
[2019-05-01 20:50] LABS: HEMATOCRIT 27.8 % (42.0-52.0); HEMOGLOBIN 9.4 g/dl (13.5-17.5)
[2019-05-01] MEDS: SIMVASTATIN 10 MG TAB PO SCH (20:54)
[2019-05-01] MEDS: CALCIUM/VITAMIN D 500 MG TAB PO SCH (20:55)
[2019-05-01] MEDS: DOCUSATE SODIUM 100 MG CAP PO SCH (21:51)
[2019-05-02] VITALS (7 sets, daily range): BP systolic 97–118; BP diastolic 57–70
[2019-05-02] MEDS: ACETAMINOPHEN TAB 650MG DOSE (2X325MG) PO PRN (01:18)
[2019-05-02] MEDS: NS 1,000 ML IV SCH ×2 (03:47→15:08)
[2019-05-02] MEDS: LEVOTHYROXINE 125MCG TABLET (0.125MG) PO SCH (05:44)
[2019-05-02] MEDS: ACETAMINOPH W/CODEINE #3 TAB UD PO PRN (05:54)
[2019-05-02 06:54] LABS: HEMOGLOBIN 10.1 g/dl (13.5-17.5); MEAN CORPUSCULAR HEMOGLOBIN 30.9 pg (27.0-33.0); MEAN CORPUSCULAR HGB CONC 32.6 g/dl (32.0-36.5); MEAN CORPUSCULAR VOLUME 94.8 fl (80.0-96.0); PLATELET COUNT, AUTOMATED 139 10^3/uL (150-450); RED BLOOD COUNT 3.27 10^6/uL (4.30-6.10); WHITE BLOOD COUNT 10.6 10^3/uL (4.0-10.0)
[2019-05-02 07:14] LABS: CALCIUM LEVEL 8.1 MG/DL (8.8-10.2); CREATININE FOR GFR 1.48 MG/DL (0.70-1.30); GLOMERULAR FILTRATION RATE 48.2 (>35); POTASSIUM SERUM 3.6 MEQ/L (3.5-5.1)
[2019-05-02] MEDS: HumaLOG INSULIN (NovoLOG) PER UNIT SC SCH ×4 (07:30→20:35)
[2019-05-02] MEDS ORDERED: D5W/0.9% SODIUM CHLORIDE 1,000 ML IV SCH (08:15)
[2019-05-02] MEDS: MORPHINE 15 MG SA TAB PO SCH ×2 (08:56→20:34)
[2019-05-02] MEDS: TORSEMIDE 20 MG TAB PO SCH (09:45)
[2019-05-02] MEDS: OMEGA-3 1000MG CAPSULE PO SCH ×2 (09:45→20:34)
[2019-05-02] MEDS: FOLIC ACID 1 MG TAB PO SCH (09:46)
[2019-05-02] MEDS: FERROUS GLUCONATE 324 MG TAB PO SCH (09:46)
[2019-05-02] MEDS: DIGOXIN 0.125 MG TAB PO SCH (09:46)
[2019-05-02] MEDS: POTASSIUM CHLORIDE 10 MEQ SR TABLET PO SCH ×2 (09:47→20:32)
[2019-05-02] MEDS: allopurinoL 100 MG TAB PO SCH (09:47)
[2019-05-02] MEDS: MULTIVITAMINS/MINERALS THERAP 1 TAB PO SCH (09:47)
[2019-05-02] MEDS: ASPIRIN 81 MG CHEW TABLET PO SCH (09:47)
[2019-05-02] MEDS: FEXOFENADINE 60 MG TAB PO SCH (09:48)
[2019-05-02] MEDS: PANTOPRAZOLE 40MG INJ (PROTONIX) (C9113) IV SCH ×2 (10:35→20:31)
[2019-05-02] MEDS: LEVEMIR (INSULIN DETEMIR) 1 UNITS/0.01ML SC SCH ×2 (10:36→22:12)
--- NOTE | 2019-05-02 12:29 | IPNPDOC ---
Text Note Date of Service The patient was seen on 05/02/19. NOTE Subjective: Patient is doing better today, he stated that he wants to eat.Eileen march denies fever, chills, nausea, vomiting, shortness of breath. He complains of low back pain which is chronic. Objective: General: NAD HEENT: PERRLA, EOMI, no JVD CV: S1-S2, irregularly irregular Lungs: Clear to auscultation Abdomen: Nontender, nondistended Extremities: No swelling no cyanosis Patient is 83 years old male with past medical history of CHF with preserved EF, diabetes, Moderate Aortic stenosis, Atrial fibrillation not on any anticoagulation, COPD not on oxygen , REBEKAH on CPAP presented to the ED with weakness. In ER patient was found to have stool positive for blood, hemoglobin was 7.4, white blood count 15.4, chest x-ray did not show acute cardiopulmonary changes. GI bleed Patient has history of upper GI bleed with gastroduodenal artery embolization Hemoglobin is 10.1 today PPI Eliquis on hold. Given his history of multiple GI bleeds in the past and massive bleeding in September 2018, Eliquis most likely needs to be stopped indefinitely. I will defer restart of Eliquis to roofing machine operator EGD planned for today (2) Atrial fibrillation Rate is under control for now Eliquis on hold due to acute GI bleed (3) ANTHONY (acute kidney injury) Improved Secondary to volume contraction IV fluid Continue to monitor (4) Left leg swelling Mild left leg swelling Doppler ultrasound negative for DVT No redness (5) Anemia Hemoglobin is stable today Secondary to GI bleed (6) COPD exacerbation Patient complains of increased cough with brownish sputum production Patient has leukocytosis of 15 on admission, however he is afebrile. Leukocytosis improved Continue Levofloxacin IV (7) Diabetes mellitus Status: Chronic Problem Text: Insulin sliding scale Detemir twice a day VS,Fishbone, I+O VS, Fishbone, I+O Laboratory Tests 05/01/19 20:38 05/02/19 06:22 Vital Signs Date Time Temp Pulse Resp B/P (MAP) Pulse Ox O2 Delivery O2 Flow Rate FiO2 05/02/19 10:00 98.6 83 16 113/58 (76) 95 Room Air 05/02/19 01:10 93.0 05/01/19 10:01 98 I&O- Last 24 Hours up to 6 AM 05/02/19 06:00 Intake Total 4599 ml Output Total 1150 ml Balance 3449 ml GIFTY LYMAN DO May 02, 2019 12:29
[2019-05-02] MEDS ORDERED: LIDOCAINE 2% INJ 100 MG/5 ML SDV (FOR ANES.) As Ordered ONE (12:33)
[2019-05-02] MEDS ORDERED: PROPOFOL 200 MG/20 ML VIAL As Ordered ONE (12:33)
[2019-05-02] MEDS ORDERED: ePHEDrine SULFATE 25 MG/5 ML(5MG/ML) SYRINGE As Ordered ONE (13:04)
[2019-05-02] MEDS ORDERED: PHENYLephrine HCL 500 MCG/5 ML (100MCG/ML) SYRINGE (J2370) As Ordered ONE (13:25)
--- NOTE | 2019-05-02 13:43 | ROOR ---
Patient Name: Ari Fish Procedure Date: 05/02/2019 12:53 PM Date of : 1935 Age: 83 Room: [facility] Gender: Male Note Status: Finalized Procedure: Upper GI endoscopy Indications: Acute post hemorrhagic anemia Providers: Adryan Starks MD Referring MD: Meenu Bernardo DO Requesting Provider: Medicines: Monitored Anesthesia Care Complications: No immediate complications. Procedure: Pre-Anesthesia Assessment: - Prior to the procedure, a History and Physical was performed, and patient medications and allergies were reviewed. The patient is competent. The risks and benefits of the procedure and the sedation options and risks were discussed with the patient. All questions were answered and informed consent was obtained. Patient identification and proposed procedure were verified by the physician, the nurse and the anesthesiologist in the procedure room. Mental Status Examination: alert and oriented. Airway Examination: normal oropharyngeal airway and neck mobility. Respiratory Examination: clear to auscultation. CV Examination: normal. Prophylactic Antibiotics: The patient does not require prophylactic antibiotics. Prior Anticoagulants: The patient has taken no previous anticoagulant or antiplatelet agents. ASA Grade Assessment: IV - A patient with severe systemic disease that is a constant threat to life. After reviewing the risks and benefits, the patient was deemed in satisfactory condition to undergo the procedure. The anesthesia plan was to use monitored anesthesia care (MAC). Immediately prior to administration of medications, the patient was re-assessed for adequacy to receive sedatives. The heart rate, respiratory rate, oxygen saturations, blood pressure, adequacy of pulmonary ventilation, and response to care were monitored throughout the procedure. The physical status of the patient was re-assessed after the procedure. The Endoscope was introduced through the mouth, and advanced to the proximal jejunum. The upper GI endoscopy was accomplished without difficulty. The patient tolerated the procedure well. Findings: The examined esophagus was normal. The Z-line was regular and was found 45 cm from the incisors. Scattered mild inflammation characterized by erythema, friability and granularity was found in the gastric body and in the gastric antrum. A single small angioectasia without bleeding was found in the third portion of the duodenum. For hemostasis, one hemostatic clip was successfully placed. There was no bleeding at the end of the procedure. Segmental moderate inflammation, characterized by congestion (edema) and erythema was found in the jejunum. Impression: - Normal esophagus. - Z-line regular, 45 cm from the incisors. - Gastritis. - A single non-bleeding angioectasia in the duodenum. Clip was placed. - Suspected jejunal inflammation characterized by congestion (edema) and erythema. - No specimens collected. Recommendation: - Patient has a contact number available for emergencies. The signs and symptoms of potential delayed complications were discussed with the patient. Return to normal activities tomorrow. Written discharge instructions were provided to the patient. - Clear liquid diet for 1 day, then advance as tolerated to high fiber diet. - Perform a colonoscopy tomorrow if any further episodes of rectal bleeding. - Observe patient's clinical course. - Check hemogram with white blood cell count and platelets q 12 hours for one day. - - Use of anticoagulants to be reviewed with patient to discuss the risks and benefits. - Return to primary care physician. Adryan Starks MD Adryan Starks MD 05/02/2019 1:43:13 PM Electronically signed by Adryan Starks MD Number of Addenda: 0 Note Initiated On: 05/02/2019 12:53 PM Estimated Blood Loss: Estimated blood loss: none.
[2019-05-02] MEDS: LevoFLOXacin IV 750 MG in IV 1 EA IV SCH (15:08)
[2019-05-02] MEDS: CALCIUM/VITAMIN D 500 MG TAB PO SCH (20:32)
[2019-05-02] MEDS: DOCUSATE SODIUM 100 MG CAP PO SCH (20:32)
[2019-05-02] MEDS: SIMVASTATIN 10 MG TAB PO SCH (20:34)
[2019-05-03] VITALS (7 sets, daily range): BP systolic 96–130; BP diastolic 58–69
[2019-05-03] MEDS: ACETAMINOPH W/CODEINE #3 TAB UD PO PRN ×2 (02:59→10:47)
[2019-05-03] MEDS: NS 1,000 ML IV SCH (05:11)
[2019-05-03] MEDS: LEVOTHYROXINE 125MCG TABLET (0.125MG) PO SCH (05:44)
[2019-05-03 06:03] LABS: HEMATOCRIT 29.3 % (42.0-52.0); HEMOGLOBIN 9.6 g/dl (13.5-17.5); MEAN CORPUSCULAR HEMOGLOBIN 31.5 pg (27.0-33.0); MEAN CORPUSCULAR HGB CONC 32.8 g/dl (32.0-36.5); MEAN CORPUSCULAR VOLUME 96.1 fl (80.0-96.0); PLATELET COUNT, AUTOMATED 127 10^3/uL (150-450); RED BLOOD COUNT 3.05 10^6/uL (4.30-6.10); WHITE BLOOD COUNT 9.1 10^3/uL (4.0-10.0)
[2019-05-03 06:29] LABS: CALCIUM LEVEL 8.1 MG/DL (8.8-10.2); CREATININE FOR GFR 1.4 MG/DL (0.70-1.30); GLOMERULAR FILTRATION RATE 51.4 (>35); MAGNESIUM LEVEL 1.9 MG/DL (1.8-2.4); POTASSIUM SERUM 3.7 MEQ/L (3.5-5.1)
[2019-05-03] MEDS ORDERED: SIMETHICONE 40MG/0.6ML DROPS 30ML As Ordered ONE (07:03)
[2019-05-03] MEDS: HumaLOG INSULIN (NovoLOG) PER UNIT SC SCH ×4 (07:30→21:00)
[2019-05-03] MEDS ORDERED: GOLYTELY SOLN 4000 ML BTL PO ONE (08:00)
[2019-05-03] MEDS: LEVEMIR (INSULIN DETEMIR) 1 UNITS/0.01ML SC SCH ×2 (10:28→21:00)
[2019-05-03] MEDS: PANTOPRAZOLE 40MG INJ (PROTONIX) (C9113) IV SCH ×2 (10:46→21:44)
[2019-05-03] MEDS: MORPHINE 15 MG SA TAB PO SCH ×2 (10:47→21:45)
[2019-05-03] MEDS: DIGOXIN 0.125 MG TAB PO SCH (10:48)
[2019-05-03] MEDS: TORSEMIDE 20 MG TAB PO SCH (11:45)
[2019-05-03] MEDS: MULTIVITAMINS/MINERALS THERAP 1 TAB PO SCH (11:46)
[2019-05-03] MEDS: OMEGA-3 1000MG CAPSULE PO SCH ×2 (11:46→21:45)
[2019-05-03] MEDS: allopurinoL 100 MG TAB PO SCH (11:47)
[2019-05-03] MEDS: FERROUS GLUCONATE 324 MG TAB PO SCH (11:47)
[2019-05-03] MEDS: FOLIC ACID 1 MG TAB PO SCH (11:47)
[2019-05-03] MEDS: POTASSIUM CHLORIDE 10 MEQ SR TABLET PO SCH ×2 (11:48→21:44)
[2019-05-03] MEDS: ASPIRIN 81 MG CHEW TABLET PO SCH (11:48)
[2019-05-03] MEDS: FEXOFENADINE 60 MG TAB PO SCH (11:49)
[2019-05-03] MEDS ORDERED: D5W/0.9% SODIUM CHLORIDE 1,000 ML IV SCH (13:00)
[2019-05-03 14:09] LABS: HEMATOCRIT 32.6 % (42.0-52.0); HEMOGLOBIN 10.7 g/dl (13.5-17.5)
[2019-05-03] MEDS ORDERED: PROPOFOL 200 MG/20 ML VIAL As Ordered ONE (15:26)
[2019-05-03] MEDS ORDERED: LIDOCAINE 2% INJ 100 MG/5 ML SDV (FOR ANES.) As Ordered ONE ×2 (15:27→15:28)
--- NOTE | 2019-05-03 16:36 | IPNPDOC ---
Text Note Date of Service The patient was seen on 05/03/19. NOTE Subjective: Patient tolerates EGD well. He doesn't have any abdominal pain. P atient denies fever, chills, nausea, vomiting, shortness of breath. Objective: General: NAD HEENT: PERRLA, EOMI, no JVD CV: S1-S2, irregularly irregular Lungs: Clear to auscultation Abdomen: Nontender, nondistended Extremities: No swelling no cyanosis Patient is 83 years old male with past medical history of CHF with preserved EF, diabetes, Moderate Aortic stenosis, Atrial fibrillation not on any anticoagulation, COPD not on oxygen , REBEKAH on CPAP presented to the ED with weakness. In ER patient was found to have stool positive for blood, hemoglobin was 7.4, white blood count 15.4, chest x-ray did not show acute cardiopulmonary changes. GI bleed Patient has history of upper GI bleed with gastroduodenal artery embolization Hemoglobin is 10.7 today PPI Eliquis on hold. Given his history of multiple GI bleeds in the past and massive bleeding in September 2018, Eliquis most likely needs to be stopped indefinitely. 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 Clip was placed. Suspected jejunal inflammation characterized by congestion (edema) and erythema. Colonoscopy planned for today (2) Atrial fibrillation Rate is under control for now Eliquis on hold due to acute GI bleed (3) ANTHONY (acute kidney injury) Improved Secondary to volume contraction IV fluid Continue to monitor (4) Left leg swelling resolved Mild left leg swelling Doppler ultrasound negative for DVT No redness (5) Anemia Hemoglobin is stable today Secondary to GI bleed (6) COPD exacerbation Patient complains of increased cough with brownish sputum production Patient has leukocytosis of 15 on admission, however he is afebrile. Leukocy tosis improved Continue Levofloxacin IV (7) Diabetes mellitus Status: Chronic Problem Text: Insulin sliding scale Detemir twice a day VS,Fishbone, I+O VS, Fishbone, I+O Laboratory Tests 05/03/19 05:42 05/03/19 13:23 Vital Signs Date Time Temp Pulse Resp B/P (MAP) Pulse Ox O2 Delivery O2 Flow Rate FiO2 05/03/19 14:00 97.5 89 18 116/64 (81) 96 Room Air 05/02/19 01:10 93.0 05/01/19 10:01 98 I&O- Last 24 Hours up to 6 AM 05/03/19 06:00 Intake Total 3110 ml Output Total 240 ml Balance 2870 ml GIFTY LYMAN DO May 03, 2019 16:36
[2019-05-03] MEDS ORDERED: VASOPRESSIN INJ 20 UNITS/ML VIAL As Ordered ONE (16:44)
[2019-05-03] MEDS ORDERED: ePHEDrine SULFATE 25 MG/5 ML(5MG/ML) SYRINGE As Ordered ONE (16:47)
--- NOTE | 2019-05-03 17:40 | ROOR ---
Patient Name: Ari Fish Procedure Date: 05/03/2019 3:30 PM Date of : 1935 Age: 83 Room: Main OR Gender: Male Note Status: Finalized Procedure: Colonoscopy Indications: Hematochezia Providers: Adryan Starks MD Referring MD: Meenu Bernardo DO Requesting Provider: Medicines: Monitored Anesthesia Care Complications: No immediate complications. Procedure: Pre-Anesthesia Assessment: - Prior to the procedure, a History and Physical was performed, and patient medications and allergies were reviewed. The patient is competent. The risks and benefits of the procedure and the sedation options and risks were discussed with the patient. All questions were answered and informed consent was obtained. Patient identification and proposed procedure were verified by the physician, the nurse and the anesthesiologist in the procedure room. Mental Status Examination: alert and oriented. Airway Examination: normal oropharyngeal airway and neck mobility. Respiratory Examination: clear to auscultation. CV Examination: normal. Prophylactic Antibiotics: The patient does not require prophylactic antibiotics. Prior Anticoagulants: The patient has taken no previous anticoagulant or antiplatelet agents. ASA Grade Assessment: II - A patient with mild systemic disease. After reviewing the risks and benefits, the patient was deemed in satisfactory condition to undergo the procedure. The anesthesia plan was to use monitored anesthesia care (MAC). Immediately prior to administration of medications, the patient was re-assessed for adequacy to receive sedatives. The heart rate, respiratory rate, oxygen saturations, blood pressure, adequacy of pulmonary ventilation, and response to care were monitored throughout the procedure. The physical status of the patient was re-assessed after the procedure. The Colonoscope was introduced through the anus and advanced to the cecum, identified by appendiceal orifice and ileocecal valve. The colonoscopy was performed without difficulty. The patient tolerated the procedure well. The quality of the bowel preparation was poor. The terminal ileum, ileocecal valve, appendiceal orifice, and rectum were photographed. Scope insertion time was 6 minutes. Scope withdrawal time was 14 minutes. The total duration of the procedure was 22 minutes. Findings: The perianal and digital rectal examinations were normal. A large amount of semi-liquid stool was found from rectum to ascending colon, making visualization difficult. Lavage of the area was performed using a large amount of sterile water, resulting in clearance with good visualization. There is no endoscopic evidence of bleeding, ulcerations or angioectasia in the entire colon. Non-bleeding external and internal hemorrhoids were found during retroflexion. The hemorrhoids were medium-sized. Impression: - Stool from rectum to ascending colon. - Non-bleeding external and internal hemorrhoids. - No specimens collected. Recommendation: - Patient has a contact number available for emergencies. The signs and symptoms of potential delayed complications were discussed with the patient. Return to normal activities tomorrow. Written discharge instructions were provided to the patient. - Advance diet as tolerated. - Continue present medications. - Anticoagulation based on the risks and benefits. - Repeat colonoscopy is not recommended due to current age (66 years or older) depending on clinical and functional status. - Return to primary care physician. Adryan Starks MD Adryan Starks MD 05/03/2019 5:40:17 PM Electronically signed by Adryan Starks MD Number of Addenda: 0 Note Initiated On: 05/03/2019 3:30 PM Estimated Blood Loss: Estimated blood loss was minimal.
[2019-05-03] MEDS ORDERED: LR 1,000 ML IV SCH (18:15)
[2019-05-03] MEDS ORDERED: ONDANSETRON 4MG/2ML VIAL (J2405) IV PRN (18:15)
[2019-05-03 19:52] LABS: HEMATOCRIT 32.8 % (42.0-52.0); HEMOGLOBIN 10.7 g/dl (13.5-17.5)
[2019-05-03] MEDS ORDERED: LEVEMIR (INSULIN DETEMIR) 1 UNITS/0.01ML SC ONE (21:30)
[2019-05-03] MEDS: DOCUSATE SODIUM 100 MG CAP PO SCH (21:44)
[2019-05-03] MEDS: CALCIUM/VITAMIN D 500 MG TAB PO SCH (21:44)
[2019-05-03] MEDS: SIMVASTATIN 10 MG TAB PO SCH (21:45)
[2019-05-04 01:38] LABS: HEMATOCRIT 29.8 % (42.0-52.0); HEMOGLOBIN 9.6 g/dl (13.5-17.5)
[2019-05-04 02:00] VITALS: BP 111/65
[2019-05-04] MEDS: LEVOTHYROXINE 125MCG TABLET (0.125MG) PO SCH (05:51)
[2019-05-04 06:00] VITALS: BP 118/69
[2019-05-04 07:48] LABS: CALCIUM LEVEL 8.9 MG/DL (8.8-10.2); CREATININE FOR GFR 1.44 MG/DL (0.70-1.30); GLOMERULAR FILTRATION RATE 49.8 (>35); POTASSIUM SERUM 3.6 MEQ/L (3.5-5.1)
[2019-05-04 07:49] LABS: HEMATOCRIT 31.4 % (42.0-52.0); MEAN CORPUSCULAR HEMOGLOBIN 31.1 pg (27.0-33.0); MEAN CORPUSCULAR HGB CONC 31.8 g/dl (32.0-36.5); MEAN CORPUSCULAR VOLUME 97.5 fl (80.0-96.0); PLATELET COUNT, AUTOMATED 138 10^3/uL (150-450); RED BLOOD COUNT 3.22 10^6/uL (4.30-6.10); WHITE BLOOD COUNT 7.8 10^3/uL (4.0-10.0)
[2019-05-04] MEDS: PANTOPRAZOLE 40MG INJ (PROTONIX) (C9113) IV SCH (08:16)
[2019-05-04] MEDS: LEVEMIR (INSULIN DETEMIR) 1 UNITS/0.01ML SC SCH (08:17)
[2019-05-04] MEDS: HumaLOG INSULIN (NovoLOG) PER UNIT SC SCH ×2 (08:17→12:22)
[2019-05-04] MEDS: allopurinoL 100 MG TAB PO SCH (08:21)
[2019-05-04] MEDS: TORSEMIDE 20 MG TAB PO SCH (08:21)
[2019-05-04] MEDS: ASPIRIN 81 MG CHEW TABLET PO SCH (08:22)
[2019-05-04] MEDS: POTASSIUM CHLORIDE 10 MEQ SR TABLET PO SCH (08:22)
[2019-05-04] MEDS: OMEGA-3 1000MG CAPSULE PO SCH (08:22)
[2019-05-04] MEDS: FERROUS GLUCONATE 324 MG TAB PO SCH (08:22)
[2019-05-04] MEDS: MULTIVITAMINS/MINERALS THERAP 1 TAB PO SCH (08:22)
[2019-05-04] MEDS: FEXOFENADINE 60 MG TAB PO SCH (08:22)
[2019-05-04] MEDS: DIGOXIN 0.125 MG TAB PO SCH (08:24)
[2019-05-04] MEDS: FOLIC ACID 1 MG TAB PO SCH (08:24)
[2019-05-04] MEDS: MORPHINE 15 MG SA TAB PO SCH (08:25)
[2019-05-04] MEDS ORDERED: OMEP20TA9 PO (11:55)
--- NOTE | 2019-05-04 21:54 | DS.PDOC ---
Discharge Summary General Date of Admission Apr 30, 2019 at 11:29 Date of Discharge 05/04/19 Discharge Summary PROCEDURES PERFORMED DURING STAY: [None]. ADMITTING DIAGNOSES: GI bleed Atrial fibrillation ANTHONY Left leg swelling Acute Anemia COPD exacerbation Diabetes mellitus DISCHARGE DIAGNOSES: GI bleed Atrial fibrillation ANTHONY Left leg swelling Acute Anemia COPD exacerbation Diabetes mellitus COMPLICATIONS/CHIEF COMPLAINT: Gastrointestinal Bleeding. HISTORY OF PRESENT ILLNESS: Patient is 83 years old male with past medical history of CHF with preserved EF, diabetes, Moderate Aortic stenosis, Atrial fibrillation not on any anticoagulation, COPD not on oxygen , REBEKAH on CPAP presented to the ED with weakness. In ER patient was found to have stool positive for blood, hemoglobin was 7.4, white blood count 15.4, chest x-ray did not show acute cardiopulmonary changes. Of note patient has a history of GI bleed in September 2018 requiring transfusion of PRBC with colonoscopies x 2, first one found a red spot in splenic flexure which was clipped also diverticulosis and internal hemorrhoids, however continued to bleed so had angiogram of celiac artery and superior mesenteric artery 10/18 which did not show any bleeding. He continued to bleed so had a second colonoscopy which just showed clots through out the colon, then had a bleeding scan which was positive with a bleeding pattern suggestive of proximal small intestine/ duodenal bleeding source underwent gastroduodenal artery embolization on 10/24 with stabilization of HH. Also patient complains of cough with some brownish sputum HOSPITAL COURSE: During the hospital stay the following issue addressed GI bleed Patient has history of upper GI bleed with gastroduodenal artery embolization done in 2019. In this admission patient has rebleeding. Patient received treatment with PPI. Eliquis on hold. Given his history of multiple GI bleeds in the past and massive bleeding in September 2018, Eliquis most likely needs to be stopped indefinitely. 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 EGD was done and showed gastritis, a single non-bleeding angiectasia in the duodenum. Clip was placed. Suspected jejunal inflammation characterized by congestion (edema) and erythema. Colonoscopy did not reveal any particular source of bleeding (2) Atrial fibrillation Eliquis was on hold due to acute GI bleed (3) ANTHONY (acute kidney injury) Improved Secondary to volume contraction (4) Left leg swelling resolved Mild left leg swelling Doppler ultrasound negative for DVT No redness (5) Anemia Hemoglobin is stable today Secondary to GI bleed (6) COPD exacerbation Patient complains of increased cough with brownish sputum production Patient has leukocytosis of 15 on admission, however he is afebrile. Leukocytosis improved Patient received treatment with Levofloxacin IV (7) Diabetes mellitus Insulin sliding scale Detemir twice a day DISCHARGE MEDICATIONS: Please see below. ALLERGIES: Please see below. PHYSICAL EXAMINATION ON DISCHARGE: VITAL SIGNS: Please see below. General Exam: Positive: Alert, Cooperative Eye Exam: Positive: PERRLA ENT Exam: Positive: Atraumatic Neck Exam: Positive: Supple; Negative: JVD Chest Exam: Positive: Clear to auscultation Heart Exam: Positive: Irregular Rhythm Telemetry: Positive: Atrial fibrillation Abdomen Exam: Positive: Normal bowel sounds Extremity Exam: Negative: Clubbing, Cyanosis Skin Exam: Positive: Nl turgor and temperature Neuro Exam: Positive: Normal Gait, Strength at 5/5 X4 ext, Cranial Nerves 3-12 NL Psych Exam: Positive: Mental status NL LABORATORY DATA: Please see below. IMAGING: Colonoscopy Findings: The perianal and digital rectal examinations were normal. A large amount of semi-liquid stool was found from rectum to ascending colon, making visualization difficult. Lavage of the area was performed using a large amount of sterile water, resulting in clearance with good visualization. There is no endoscopic evidence of bleeding, ulcerations or angioectasia in the entire colon. Non-bleeding external and internal hemorrhoids were found during retroflexion. The hemorrhoids were medium-sized. PROGNOSIS: Favorable ACTIVITY: As tolerated DIET: Cardiac DISPOSITION: [facility]. DISCHARGE INSTRUCTIONS: Discuss initiation of Eliquis with inspector hairspring and PCP given high risk of ashley leeding DISCHARGE CONDITION: Stable TIME SPENT ON DISCHARGE: Greater than 20 minutes. Vital Signs/I&Os Vital Signs Date Time Temp Pulse Resp B/P (MAP) Pulse Ox O2 Delivery O2 Flow Rate FiO2 05/04/19 08:25 18 05/04/19 08:24 80 05/04/19 06:00 96.7 118/69 (85) 98 Room Air 05/02/19 01:10 93.0 05/01/19 10:01 98 I&O- Last 24 Hours up to 6 AM 05/04/19 06:00 Intake Total 1200 ml Output Total 670 ml Balance 530 ml Laboratory Data Labs 24H Laboratory Tests 2 05/04/19 06:43: Nucleated Red Blood Cells % (auto) 0.3H, Anion Gap 6L, Glomerular Filtration Rate 49.8, Calcium Level 8.9, Magnesium Level 2.0 05/04/19 12:04: Bedside Glucose (Misc Panel) 223H CBC/BMP Laboratory Tests 05/04/19 01:32 05/04/19 06:43 FSBS Laboratory Tests Test 05/04/19 12:04 Range/Units Bedside Glucose (Misc Panel) 223 83-110 MG/DL Discharge Medications Scheduled Allopurinol (Allopurinol) 100 Mg Tab, 200 MG PO DAILY, (Reported) Aspirin (Aspirin) 81 Mg Tab.chew, 81 MG PO DAILY, (Reported) Calcium Carbonate/Vitamin D3 (Oyster Shell 500-Vit D3 200 Tb) 1 Each Tablet, 2 TAB PO QHS, (Reported) Digoxin (Digoxin) 125 Mcg Tab, 125 MCG PO DAILY, (Reported) Docusate Sodium (Docusate Sodium) 100 Mg Capsule, 200 MG PO QHS, (Reported) Ferrous Gluconate (Ferrous Gluconate) 324 Mg Tab, 648 MG PO DAILY, (Reported) Fexofenadine HCl (Melinda Allergy) 180 Mg Tab, 180 MG PO DAILY, (Reported) Folic Acid (Folic Acid) 1 Mg Tab, 1 MG PO DAILY, (Reported) Insulin Glargine,Hum.rec.anlog (Lantus Solostar) 100 Unit/1 Ml Insuln.pen, 36 UNITS SC DAILY, (Reported) 0600 Levothyroxine Sodium (Levothyroxine Sodium) 125 Mcg Tab, 125 MCG PO DAILY, (Reported) 0600 Lovastatin (Lovastatin) 10 Mg Tab, 10 MG PO QHS, (Reported) Morphine Sulfate (Morphine Sulfate ER) 15 Mg Tabcr, 15 MG PO QHS, (Reported) Morphine Sulfate (Morphine Sulfate ER) 15 Mg Tablet.er, 30 MG PO DAILY, (Reported) Multivitamins (Thera M Plus Tablet) 1 Each Tablet, 1 TAB PO DAILY, (Reported) Naloxegol Oxalate (Movantik) 25 Mg Tablet, 25 MG PO DAILY, (Reported) [place]-3/Dha/Epa/Fish Oil (Fish Oil EC 1,000 mg Softgel) 1 Cap Cap, 1 CAP PO BID, (Reported) Omeprazole (Omeprazole) 20 Mg Tablet.dr, 40 MG PO DAILY Potassium Chloride (Potassium Chloride) 20 Meq Tab.er.prt, 20 MEQ PO BID, (Reported) Sennosides (Senna) 8.6 Mg Tablet, 2 TAB PO DAILY, (Reported) Torsemide (Torsemide) 20 Mg Tablet, 40 MG PO DAILY, (Reported) Scheduled PRN Acetaminophen (Acetaminophen) 325 Mg Tablet, 650 MG PO Q4H PRN for PAIN / FEVER, (Reported) Acetaminophen with Codeine (Acetaminophen-Cod #3 Tablet) 1 Each Tablet, 1 TAB PO Q6H PRN for PAIN, (Reported) Magnesium Hydroxide (Milk of Magnesia) 400 Mg/5 Ml Oral.susp, 2,400 MG PO DAILY PRN for CONSTIPATION, (Reported) Melatonin (Melatonin) 10 Mg Tablet, 10 MG PO QHS PRN for SLEEP, (Reported) Nitroglycerin (Nitrostat) 0.4 Mg Subl, 0.4 MG SL NITRO PRN for CHEST PAIN, (Reported) Polyethylene Glycol 3350 (Miralax) 17 Gm Powd.pack, 17 GM PO DAILY PRN for CONSTIPATION, (Reported) Sennosides (Senna) 8.6 Mg Tablet, 1 TAB PO QHS PRN for CONSTIPATION, (Reported) Allergies Coded Allergies: Beta-Blockers (Beta-Adrenergic Bloc (Verified Allergy, Unknown, 04/16/19) spironolactone (Verified Allergy, Unknown, 04/16/19) warfarin (Verified Allergy, Unknown, 04/16/19) indomethacin (Verified Adverse Reaction, Intermediate, HALLUCINATIONS, 04/16/19) GIFTY LYMAN DO May 04, 2019 21:54
== END 2019-05-04 13:30 | DRG 378 ==
LOC: M ED 08:30 → EDBD 08:30 → M ED INP 11:29 → M MSPAV 12:43
PROVIDERS: ADMIT Internal Medicine; ATTEND Internal Medicine
PROC: 30233N1 Transfusion of Nonautologous Red Blood Cells into Peripheral Vein, Percutaneous Approach (ICD-10-PCS; 2019-04-30)
PROC: 0W3P8ZZ Control Bleeding in Gastrointestinal Tract, Via Natural or Artificial Opening Endoscopic (ICD-10-PCS; 2019-05-02)
PROC: 0DJ08ZZ Inspection of Upper Intestinal Tract, Via Natural or Artificial Opening Endoscopic (ICD-10-PCS; principal; 2019-05-02 12:53)
PROC: 0DJD8ZZ Inspection of Lower Intestinal Tract, Via Natural or Artificial Opening Endoscopic (ICD-10-PCS; 2019-05-03)
DX: K31.811 Angiodysplasia of stomach and duodenum with bleeding (principal); J44.1 Chronic obstructive pulmonary disease with (acute) exacerbation; N17.9 Acute kidney failure, unspecified; D62 Acute posthemorrhagic anemia; E11.9 Type 2 diabetes mellitus without complications; I35.0 Nonrheumatic aortic (valve) stenosis; I48.91 Unspecified atrial fibrillation; L40.9 Psoriasis, unspecified; M79.89 Other specified soft tissue disorders; K21.9 Gastro-esophageal reflux disease without esophagitis; M10.9 Gout, unspecified; K64.8 Other hemorrhoids; K64.4 Residual hemorrhoidal skin tags; I27.20 Pulmonary hypertension, unspecified; G47.33 Obstructive sleep apnea (adult) (pediatric); Z79.01 Long term (current) use of anticoagulants; Z79.82 Long term (current) use of aspirin; Z79.891 Long term (current) use of opiate analgesic; Z79.899 Other long term (current) drug therapy; Z88.8 Allergy status to other drugs, medicaments and biological substances; Z87.891 Personal history of nicotine dependence; Z88.6 Allergy status to analgesic agent

== ENCOUNTER 2019-05-11 12:22 | Day surgery (SDC) | payer MEDICARE, MEDICAID ==
[~2019-05-11] VITALS: Ht 188 cm; Wt 84.4 kg
[2019-05-11] MEDS ORDERED: NS 1,000 ML IV ONE (13:00)
[2019-05-11] MEDS ORDERED: MIDAZOLAM INJ 2 MG/2 ML VIAL (J2250) As Ordered ONE ×2 (14:10→14:11)
[2019-05-11] MEDS ORDERED: LIDOCAINE VISCOUS 2% SOLN 15ML UDC As Ordered ONE (14:47)
[2019-05-11 15:15] VITALS: BP 104/59
[2019-05-11] MEDS ORDERED: MIDAZOLAM INJ 2 MG/2 ML VIAL (J2250) IV ONE ×3 (15:15)
[2019-05-11] MEDS ORDERED: LIDOCAINE VISCOUS 2% SOLN 15ML UDC MT ONE (15:15)
--- NOTE | 2019-05-11 19:07 | T-ECHO ---
DATE OF PROCEDURE: 05/11/2019 REFERRING PHYSICIAN: Ryan Holt MD INDICATION: 45 day post Watchman left atrial appendage closure device transesophageal echocardiogram (ANICETO). PREPROCEDURE DIAGNOSIS: 45 day post Watchman left atrial appendage closure device ANICETO. POSTPROCEDURE DIAGNOSIS: 45 day post Watchman left atrial appendage closure device ANICETO. PRINCIPAL FINDINGS: No thrombus and well occluded left atrial appendage by Watchman left atrial appendage closure device with only a small gap with color flow along the lateral aspect of the Watchman device. PROCEDURE PERFORMED BY: Ryan Holt MD DATABASE MANAGEMENT SPECIALIST: None. PROCEDURE PERFORMED: Transesophageal echocardiogram. IV SEDATION: Midazolam 4 mg IV total. COMPLICATIONS: None. DESCRIPTION OF PROCEDURE: Rhythm was atrial fibrillation. Patient received viscous lidocaine to gargle and swallow. He received a total of 4 mg of midazolam IV for conscious sedation throughout the course of the procedure. Esophageal intubation was accomplished without difficulty by Dr. Holt with the TE probe. Earlier on in the procedure, the patient grabbed the probe with his hands and pulled it out of his mouth. He received some additional IV sedation, and the TE probe was placed back into the esophagus by Dr. Holt and the procedure continued. A Watchman left atrial appendage closure device was well seated in the left atrial appendage with only a very small (approximately 2 mm) gap along the lateral aspect of the closure device with a small amount of color flow Doppler seen in the gap. No thrombus was seen on the Watchman device. Atrial septum was intact anatomically. The left atrium appeared to be enlarged. Moderate aortic valve sclerosis. Mild reduction in mobility of the aortic cusps. No aortic regurgitation. Mild mitral annular calcification. Moderate mitral regurgitation. Structurally normal appearing tricuspid leaflets. Moderate tricuspid regurgitation. Normal left ventricle size and systolic function without regional wall motion abnormalities. Right ventricle was normal in size and systolic function. No pericardial effusion. CONCLUSIONS: 1. Satisfactory appearance of Watchman left atrial appendage closure device 45 days following procedure with no thrombus on the device and an insignificant gap along the lateral aspect between the lateral aspect of the Watchman device and the wall of the left atrial appendage. 2. Normal left ventricle size and systolic function. 3. Appearance of left atrial dilatation. 4. Moderate aortic valve sclerosis. Probably at least mild aortic stenosis by visual assessment. No aortic regurgitation. 5. Mild mitral annular calcification. Moderate mitral regurgitation. 6. Moderate tricuspid regurgitation. RECOMMENDATIONS: Patient no longer requires anticoagulation for atrial fibrillation based on satisfactory appearance of the Watchman device 45 days postprocedure.
== END 2019-05-11 15:31 | disposition home or self-care (01) ==
LOC: M OPP 12:22
PROVIDERS: ATTEND Internal Medicine Cardiovascular Disease
DX: I48.21 Permanent atrial fibrillation (principal); K92.2 Gastrointestinal hemorrhage, unspecified; Z95.818 Presence of other cardiac implants and grafts; I35.0 Nonrheumatic aortic (valve) stenosis; I34.0 Nonrheumatic mitral (valve) insufficiency; I36.1 Nonrheumatic tricuspid (valve) insufficiency
CPT/HCPCS: 93312; 93320; 93325; J2250

== ENCOUNTER → 2019-06-04 | Outpatient (REF) | payer MEDICARE, MEDICAID | LOC: M LAB REF 16:38 | PROVIDERS: ATTEND Internal Medicine | DX: E11.9 Type 2 diabetes mellitus without complications (principal); Z79.82 Long term (current) use of aspirin; Z79.899 Other long term (current) drug therapy ==

== ENCOUNTER → 2019-06-27 | Outpatient (CLI) | payer MEDICARE, MEDICAID ==
[~2019-06-27] MED LIST changes: -OMEP-172 PO; +OMEP1CAP73 PO
--- NOTE | 2019-06-29 03:59 | ECWPNPC ---
PATIENT NAME: TY MARIE : 1935 GENDER: MALE VISIT DATE: 06/27/2019 DISCHARGE DATE: 06/27/19 1129 VISIT LOCKED DATE TIME: PHYSICIAN: DIONE PORTER RESOURCE: DIONE PORTER REASON FOR APPOINTMENT 1. BACK HISTORY OF PRESENT ILLNESS HISTORY OF PRESENT ILLNESS: PAIN THE PATIENT DESCRIBES THE PAIN... 83-YEAR-OLD MALE IN FOR CHRONIC PAIN FOLLOW-UP. HE RATES HIS PAIN CURRENTLY AT A 6 OUT OF 10 AND DESCRIBES IT ACHING. HE FEELS MEDICATIONS ARE WORKING WELL BUT WOULD LIKE TO SWITCH THEM TO WHEN NECESSARY. FALL RISK SCREENING: SCREENING :NO FALLS REPORTED IN THE LAST YEAR CURRENT MEDICATIONS TAKING CALCIUM 500-100 MG-UNIT TABLET CHEWABLE 1TAB ORALLY BID TAKING COLACE 100 MG CAPSULE 2 CAPSULES ORALLY TWICE DAILY TAKING FERROUS GLUCONATE 324 (38 FE) MG TABLET ORALLY TWICE DAILY TAKING LOVASTATIN 10 MG TABLET 1 TABLET WITH A MEAL ORALLY ONCE A DAY TAKING FISH OIL 1000 MG CAPSULE 1 CAPSULE ORALLY BID TAKING POTASSIUM CHLORIDE - CRYSTALS 20MEQ 1 TABLET TWICE A DAY TAKING LEVOTHYROXINE SODIUM 125 MCG TABLET 1 TABLET ON AN EMPTY STOMACH IN THE MORNING ORALLY ONCE A DAY TAKING OMEPRAZOLE 20MG 20MG TABLET 1CAP ORAL DAILY TAKING ALLOPURINOL 100 MG TABLET 2 TABLET PO ONCE A DAY TAKING MULTIVITAMINS TABLET 1TAB ORALLY DAILY TAKING DIGOXIN 125 MCG TABLET 1 TABLET ORALLY ONCE A DAY TAKING FOLIC ACID 1 MG TABLET 1 TABLET ORALLY ONCE A DAY TAKING SENNA S 8.6-50 MG TABLET 2 TABLETS ORALLY ONCE A DAY TAKING LANTUS SOLOSTAR 100 UNIT/ML SOLUTION PEN-INJECTOR 42 UNITS SUBCUTANEOUS DAILY TAKING MELATONIN 10 MG TABLET 1 TAB ORALLY ONCE DAILY TAKING MILK OF MAGNESIA 400 MG/5ML SUSPENSION 30 ML NEEDED ORALLY DAILY FOR CONSTIPATION TAKING ACETAMINOPHEN 325 MG CAPSULE 2 CAPSULE NEEDED ORALLY EVERY 4 HRS TAKING FEXOFENADINE HCL 180 MG TABLET 1 TABLET NEEDED ORALLY ONCE A DAY TAKING NITROSTAT 0.4 MG TABLET SUBLINGUAL SUBLINGUAL DIRECTED TAKING MIRALAX SUSPENSION 17 GRAMS ORALLY AT HOUR OF SLEEP TAKING MORPHINE SULFATE ER 15 MG TABLET EXTENDED RELEASE DIRECTED ORALLY 1 IN AM, 2 IN PM TAKING ELIQUIS 2.5 MG TABLET DIRECTED ORALLY TAKING ASPIRIN 81 MG TABLET CHEWABLE 1 TABLET ORALLY ONCE A DAY TAKING TORSEMIDE 20 MG TABLET 1 TABLET ORALLY DAILY AT 900 TAKING MORPHINE SULFATE ER 30 MG TABLET EXTENDED RELEASE ABUSE-DETERRENT 1 TABLET ORALLY ONCE A DAY AT 6 AM MDD1 TAKING MORPHINE SULFATE ER 30 MG TABLET EXTENDED RELEASE 1 TABLET ORALLY ONCE A DAY TAKING TYLENOL WITH CODEINE #3 300-30 MG TABLET 1 TABLET NEEDED ORALLY EVERY 6 HRS TAKING MS CONTIN 15 MG TABLET EXTENDED RELEASE 1 TABLET ORALLY DAILY MDD1 TAKING SYMPROIC 0.2 MG TABLET 1 TABLET ORALLY ONCE A DAY TAKING MS CONTIN 30 MG TABLET EXTENDED RELEASE 1 TABLET ORALLY DAILY/AM MDD1 6AM NOT-TAKING MULTAQ 400 MG TABLET 1 TABLET WITH MEALS ORALLY TWICE A DAY NOT-TAKING CHELSEA ALLERGY 180 MG TABLET 1 TABLET ORALLY ONCE A DAY NOT-TAKING ACETAMINOPHEN-CODEINE #3 300-30 MG TABLET 1 TABLET NEEDED ORALLY EVERY 4 HRS, NOTES: DUPLICATE NOT-TAKING SENNA 8.6 MG TABLET 1 TABLET NEEDED ORALLY ONCE A DAY FOR CONSTIPATION, NOTES: DUPLICATE NOT-TAKING ASPIRIN EC 81 MG TABLET DELAYED RELEASE 1 TABLET ORALLY ONCE A DAY NOT-TAKING BASAGLAR KWIKPEN 100 UNIT/ML SOLUTION PEN-INJECTOR 36 UNITS SUBCUTANEOUS DAILY AT 600 NOT-TAKING BISACODYL 10 MG SUPPOSITORY 1 SUPPOSITORY NEEDED RECTAL ONCE A DAY NOT-TAKING DISPOSABLE ENEMA 19-7GRAM/118ML 1 PER RECTUM PRN CONSTIPATION NOT-TAKING GLUCAGON EMERGENCY 1 MG KIT DIRECTED INJECTION NOT-TAKING SENNA LAXATIVE 8.6 MG TABLET 2 TABLETS AT BEDTIME NEEDED ORALLY ONCE A DAY NOT-TAKING TRADJENTA 5 MG TABLET 1 TABLET ORALLY ONCE A DAY AT 900 NOT-TAKING ELIQUIS 5MG TABLET 1TAB ORAL TWICE DAILY NOT-TAKING ACETAMINOPHEN-CODEINE #4 300-60 MG TABLET 1 TABLET NEEDED ORALLY Q8H PRN MDD3 NOT-TAKING POLYETHYLENE GLYCOL POWDER 17MG Q OTHER DAY NOT-TAKING JANUVIA 50 MG TABLET 1 TAB ORALLY ONCE A DAY NOT-TAKING METFORMIN HCL 1000 MG TABLET 1 TABLET WITH MEALS ORALLY TWICE A DAY NOT-TAKING ACETAMINOPHEN 500 MG TABLET 1 TABLET NEEDED ORALLY EVERY 6 HRS PRN PAIN OR FEVER MDD=4 TAKE WITH TRAMADOL NOT-TAKING TRULICITY 0.75 MG/0.5ML SOLUTION PEN-INJECTOR 0.5 ML SUBCUTANEOUS WEEKLY NOT-TAKING METHOTREXATE 2.5 MG TABLET 7 TABS ORALLY EVERY WED NOT-TAKING SYSTANE 0.4-0.3 % SOLUTION 1 DROP INTO AFFECTED EYE NEEDED OPHTHALMIC 24 TIME(S) A DAY NOT-TAKING ONDANSETRON 4 MGS 1 TAB ORAL NEEDED FOR NAUSEA NOT-TAKING TORSEMIDE 20 MG TABLET 1 ORALLY AT 1400 DAILY NOT-TAKING TRIAMCINOLONE ACETONIDE 0.025 % CREAM 1 APPLICATION TO AFFECTED AREA EXTERNALLY NEEDED NOT-TAKING NYSTATIN 897902 UNIT/GM CREAM 1 APPLICATION TO AFFECTED AREA EXTERNALLY TWICE A DAY NOT-TAKING GUAIFENESIN-DM 100-10 MG/5ML SYRUP 10 ML NEEDED ORALLY EVERY 4 HRS NOT-TAKING DOCUSATE SODIUM 100 MG CAPSULE 1 CAPSULE ORALLY BID NOT-TAKING CALCIPOTRIENE 0.005 % OINTMENT 1 APPLICATION TO AFFECTED AREA EXTERNALLY BID FOR PSORASIS NOT-TAKING OXYCODONE-ACETAMINOPHEN 5-325 MG TABLET 1 TABLET NEEDED ORALLY EVERY 6 HRS PRN PAIN MDD=4 NOT-TAKING KETOCONAZOLE 2 % CREAM 1 APPLICATION TO AFFECTED AREA EXTERNALLY ONCE A DAY NOT-TAKING NORCO 10-325 MG TABLET 1 TABLET NEEDED ORALLY EVERY 6 HRS PRN PAIN MDD=4 NOT-TAKING FUROSEMIDE 40 MG TABLET 1 TABLET ORALLY DAILY IN THE AM, NOTES: IN AM NOT-TAKING HYDROCODONE-ACETAMINOPHEN 10-325 MG TABLET 1 TAB ORALLY EVERY 4- 6 HRSMDD4 NOT-TAKING LASIX 20 MG TABLET 1 TABLET ORALLY ONCE A DAY IN THE AFTERNOON, NOTES: IN AFTERNOON NOT-TAKING MECLIZINE HCL 25 MG TABLET CHEWABLE 1 TABLET ORALLY THREE TIMES A DAY PRN NOT-TAKING ZOLPIDEM TARTRATE 12.5 MG TABLET EXTENDED RELEASE 2 TABLET AT BEDTIME NEEDED ORALLY ONCE A DAY NOT-TAKING TAMSULOSIN HCL 0.4 MG CAPSULE 1 CAPSULE 30 MINUTES AFTER THE SAME MEAL EACH DAY ORALLY ONCE A DAY NOT-TAKING SPIRONOLACTONE 25 MG TABLET 1 TABLET ORALLY ONCE A DAY MEDICATION LIST REVIEWED AND RECONCILED WITH THE PATIENT PAST MEDICAL HISTORY BPH HYPERLIPIDEMIA DVT GOUT KIDNEY STONES PNEUMONIA HYPERTENSION CHF ? TB COPD HTN AFIB DM TYPE 2 HYPOTHYROID DRY EYES PSORIASIS INSOMNIA CHRONIC PAIN SYNDROME CONSTIPATION REBEKAH HEART FAILURE UNSPECIFIED UNSPECIFIED ANEMIA BLOODY STOOLS, LOWER GI BLEED ALLERGIES INDOCIN: HALLUCINATION - SIDE EFFECTS SURGICAL HISTORY TURP CATARACT CYSTOSCOPY SEVERAL LEFT ARM SURG AND TONSILLECTOMY DISTANT PAST LITHOTRIPSY COLONOSCOPY, FIXED GI BLEED WATCHMAN PROCEDURE 02/2019 FAMILY HISTORY FATHER: MOTHER: 2 BROTHER(S) , 2 SISTER(S) . 2 SON(S) , 4 DAUGHTER(S) . SOCIAL HISTORY GENERAL: TOBACCO USE ARE YOU A:FORMER SMOKER HOW LONG HAS IT BEEN SINCE YOU LAST SMOKED?> 10 YEARS PAIN CLINIC PFS, CLERGY, PUBLIC HEALTH REFERRALS PFS REFERRAL NEEDED?NO CLERGY REFERRAL NEEDED?NO PUBLIC HEALTH REFERRAL NEEDED?NO WAS THE PROVIDER NOTIFIED OF ANY PERTINENT INFO?YES HAS THE PATIENT BEEN EDUCATED REGARDING HIS/HER PLAN OF CARE?YES HAS THE PATIENT BEEN EDUCATED REGARDING PAIN, THE RISK FOR PAIN, THE IMPORTANCE OF EFFECTIVE PAIN MANAGEMENT, AND THE PAIN ASSESSMENT PROCESS?YES LATEX QUESTIONNAIRE LATEX ALLERGY : HAVE YOU EVER DEVELOPED ANY TYPE OF REACTION AFTER HANDLING LATEX PRODUCTS SUCH RUBBER GLOVES, CONDOMS, DIAPHRAGMS, BALLOONS, SOCKS, OR UNDERWEAR?NO LATEX ALLERGY : HAVE YOU EVER DEVELOPED ANY TYPE OF REACTION DURING OR AFTER DENTAL APPOINTMENT, VAGINAL/RECTAL EXAMINATION, SURGICAL PROCEDURE, OR ANY OTHER EXPOSURE?NO LATEX RISK : HAVE YOU EVER HAD ANY DIFFICULTY BREATHING OR HIVES AFTER EATING OR HANDLING ANY FRUITS, OR VEGETABLES; SUCH KIWI, BANANAS, STONE FRUITS, OR CHESTNUTSNO LATEX RISK : DO YOU HAVE A PREVIOUS PERSONAL HISTORY OF MORE THAN NINE SURGERIES, SPINA BIFIDA, OR REPEATED CATHERIZATIONS? NO LATEX RISK : ARE YOU FREQUENTLY EXPOSED TO LATEX PRODUCTS IN YOUR OCCUPATION?NO DATE ASKED : 06/27/2019 OTHERS AT HOME: L[place]ES [place] THE [place]. ADVANCE DIRECTIVE ADVANCE DIRECTIVE DISCUSSED WITH PATIENT:YES HCP - MARITZA MARIE (DAUGHTER) [phone] PENT[facility]OST[facility] HSSBLICA09 FAITH NO SABIANIST BELIEFS THAT WOULD IMPACT HEALTH CARE. LANGUAGE LANGUAGES SPOKEN:MARTINIQUAIS NEW PATIENT PAIN DIARY FROM 0-10, WHAT LEVEL IS YOUR PAIN TODAY?7 BMI CARE GOAL FOLLOW-UP BELOW NORMAL BMI FOLLOW-UPDIETARY EDUCATION FOR WEIGHT GAIN ALCOHOL SCREENING DID YOU HAVE A DRINK CONTAINING ALCOHOL IN THE PAST YEAR?NO POINTS0 INTERPRETATIONNEGATIVE RECREATIONAL DRUG USE DRUG USE?NO PATIENT DENIES ABUSE OR MISSUSED OF ANY MEDICATION. PATIENT DENIES USE OF ANY ILLEGAL SUBSTANCE INCLUDING MARIJUANA OR COCAINE. LEARNING BARRIERS / SPECIAL NEEDS HEARING IMPAIRED?YES VISION IMPAIRED?YES COGNITIVELY IMPAIRED?NO :HEARING AIDES :CORRECTIVE LENSES SPECIAL DEVICES?YES :WHEELCHAIR PATIENT IS NOT A CURRENT SMOKER OR DOES NOT ABUSE ALCOHOL.REVIEWED WITH PATIENT 02/23/18 1118 JS05/25/18 REVIEWED WITH PT. ADREVIEWED WITH PATIENT 01/22/19 1024 NLJREVIEWED WITH PATIENT 03/27/19 1134 JSREVIEWED WITH PATIENT 06/27/2019 DS. HOSPITALIZATION/MAJOR DIAGNOSTIC PROCEDURE SURGERY RELATED VERTIGO 11/2018 SURGERY RELATED 02/2019 REVIEW OF SYSTEMS REVIEWED BY: PROVIDER: AFSANEH MATTSON-Gen[place] . CONSTITUTIONAL: ANY CHANGE IN YOUR MEDICAL CONDITION? NO . CHILLS NO . FEVER NO . INFECTION: DO YOU HAVE NEW INFECTIONS? NO . DO YOU HAVE HISTORY OF MRSA? YES . MUSCULOSKELETAL: ANY NEW PATTERNS OF PAIN OR NUMBNESS? NO . GASTROENTEROLOGY: ANY NEW CHANGE IN BOWEL CONTROL? NO . GENITOURINARY: ANY NEW CHANGE IN BLADDER CONTROL? YES, PT STATES CHRONIC ISSUE, NOT SPINE RELATED . IS THERE A CHANCE YOU COULD BE ? NO . HEMATOLOGY/LYMPH: DO YOU TAKE ANY BLOOD THINNERS? (FOR EXAMPLE- COUMADIN, PLAVIX, AGGRENOX, PLATEL, PRADAXA, OR XARELTO) YES, ELIQUIS . WHEN WAS YOUR LAST DOSE? DATE: TIME: . NEUROLOGY: HAVE YOU FALLEN IN THE PAST 12 MONTHS? NO . ANY NEW EXTREMITY NUMBNESS OR WEAKNESS? NO . CARDIOLOGY: DO YOU HAVE A PACEMAKER OR DEFIBRILLATOR? NO . RESPIRATORY: HAVE YOU BEEN SICK IN THE PAST WEEK? YES, PT STATES THAT HE HAD A COUGH, HAS SINCE RESOLVED. DS . FEVER NO . FLU LIKE SYMPTOMS? NO . COUGH NO . INTEGUMENTARY: DO YOU HAVE ANY RASHES OR OPEN SORES? NO . ALLERGIC/IMMUNO: ARE YOU ALLERGIC TO IV DYE? NO . ANY NEW ALLERGIES? NO . PSYCHIATRIC: DO YOU HAVE THOUGHTS OF HURTING YOURSELF OR SOMEONE ELSE? NO . ARE YOU ABUSED, NEGLECTED, OR IN AN UNSAFE ENVIRONMENT? NO . ENDOCRINOLOGY: ARE YOU DIABETIC? YES, MANAGING WITH MEDS AND DIET. . OTHER: DO YOU NEED ANY PRESCRIPTIONS? NO . IF YES, PLEASE LIST: ____ . ANY NEW PROBLEMS WITH YOUR MEDICATIONS? NO . WHEN DID YOU LAST EAT? ____ . WHEN DID YOU LAST DRINK? ____ . WHAT DID YOU LAST DRINK? ____ . NAME OF PERSON DRIVING YOU HOME? ____ . DO YOU HAVE ANY OTHER QUESTIONS OR CONCERNS NO . VITAL SIGNS WT 178.5 LBS, HT 74", BMI 22.92 INDEX, BP 128/71 MM HG, HR 91 /MIN, RR 18 /MIN, TEMP 97.7 F, OXYGEN SAT % 98, SAFE IN ENV? (Y/N) YES, REVIEWED BY: DSB. KARMA CISNEROS. EXAMINATION GENERAL EXAMINATION: GENERALNO ACUTE DISTRESS, WELL NOURISHED AND HYDRATED. PSYCHAPPROPRIATE MOOD AND AFFECT . LUNGS:CLEAR TO AUSCULTATION BILATERALLY, NO WHEEZES, RHONCHI, RALES. HEART:IRREGULAR, GRADE 2 SYSTOLIC MURMUR, HISTORY OF A. FIB. 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 GIVEN PRESENTING SYMPTOMS AND RESULTS OF PHYSICAL EXAMINATION RECOMMENDED SWITCHING MORPHINE TO WHEN NECESSARY PER PATIENT REQUEST AND FOLLOWING UP IN 3 MONTHS. PATIENT HAS EXPRESSED UNDERSTANDING OF AND WAS IN AGREEMENT WITH TREATMENT PLAN. GIVEN TIME TO ASK QUESTIONS AND EXPRESS CONCERNS., ISTOP REGISTRY REVIEWED AND DEMONSTRATES COMPLLIANCE. (REF # [id number] ) BRINGS IN MEDICATIONS WHICH IS APPROPRIATE FOR WHAT WAS DISPENSED. RECENT URINE TOXICOLOGY REVIEWED. NO UNAUTHORIZED MEDICATIONS. NO ILLICIT SUBSTANCES AND PRESCRIBED MEDICATIONS WERE PRESENT. PREVENTIVE MEDICINE PAIN CLINIC TEACHING: THE PATIENT HAS BEEN EDUCATED REGARDING PAIN, THE RISK FOR PAIN, THE IMPORTANCE OF EFFECTIVE PAIN MANAGEMENT, AND THE PAIN ASSESSMENT PROCESS. : REVIEWED AND DISCUSSED TREATMENT PLAN WITH PT, REVIEWED WRITTEN DISCHARGE INSTRUCTIONS WITH PT, GIVEN WRITTEN D/C INSTRUCTIONS FOR CARE FACILITY, PT ALSO GIVEN URINE COLLECTION SPECIMEN CUP WITH INSTRUCTIONS TO OBTAIN URINE COLLECTION PRIOR TO NEXT FOLLOW UP APPT, PT ACKNOWLEDGED UNDERSTANDING. DS PROCEDURE CODES FA211 ESTABILISHED PATIENT [facility] CHARGE DISPOSITION & COMMUNICATION FOLLOW UP 3 MONTHS (REASON: LOW BACK PAIN) ELECTRONICALLY SIGNED BY SRINIVASAN ZAMUDIO ON 06/28/2019 AT 08:38 AM EST DISCLAIMER : THIS IS A VISIT SUMMARY EXTRACTED FROM THE [employer] CHART. IT IS NOT A COPY OF THE [employer] PROGRESS NOTE. HERNANDO
== END ==
LOC: M PAIN 10:45
PROVIDERS: ATTEND Family Medicine
DX: M46.96 Unspecified inflammatory spondylopathy, lumbar region (principal); G89.29 Other chronic pain; E78.5 Hyperlipidemia, unspecified; Z86.718 Personal history of other venous thrombosis and embolism; I10 Essential (primary) hypertension; J44.9 Chronic obstructive pulmonary disease, unspecified; E11.9 Type 2 diabetes mellitus without complications; E03.9 Hypothyroidism, unspecified; G47.00 Insomnia, unspecified; G47.33 Obstructive sleep apnea (adult) (pediatric); Z87.891 Personal history of nicotine dependence; Z88.6 Allergy status to analgesic agent; Z86.14 Personal history of Methicillin resistant Staphylococcus aureus infection; Z79.01 Long term (current) use of anticoagulants; Z79.4 Long term (current) use of insulin; Z79.82 Long term (current) use of aspirin; Z79.891 Long term (current) use of opiate analgesic; Z79.899 Other long term (current) drug therapy

== ENCOUNTER 2019-07-05 19:33 | Emergency (ER) | payer MEDICARE, MEDICAID ==
[~2019-07-05] VITALS: Ht 188 cm; Wt 83.1 kg
[2019-07-05] MEDS ORDERED: OMEP-221 PO (20:34)
[2019-07-05] MEDS ORDERED: ENSULIQ8 PO (20:34)
[2019-07-05] MEDS ORDERED: AMIT24CA7 PO (20:34)
[2019-07-05] MEDS ORDERED: MORP30TASA PO (20:34)
[2019-07-05 20:38] LABS: BASO # 0.1 10^3/uL (0.0-0.2); BASO % 0.5 % (0.0-1.0); EOS # 0.2 10^3/uL (0.0-0.5); EOS % 1.6 % (0.0-3.0); HEMATOCRIT 37.5 % (42.0-52.0); HEMOGLOBIN 12.2 g/dl (13.5-17.5); LYMPH # 1.6 10^3/uL (1.5-5.0); LYMPH % 15.8 % (24.0-44.0); MEAN CORPUSCULAR HEMOGLOBIN 31.8 pg (27.0-33.0); MEAN CORPUSCULAR HGB CONC 32.5 g/dl (32.0-36.5); MEAN CORPUSCULAR VOLUME 97.7 fl (80.0-96.0); MONO # 0.8 10^3/uL (0.0-0.8); MONO % 7.6 % (0.0-5.0); NEUTROPHILS # 7.5 10^3/uL (1.5-8.5); NEUTROPHILS % 73.8 % (36.0-66.0); PLATELET COUNT, AUTOMATED 163 10^3/uL (150-450); RED BLOOD COUNT 3.84 10^6/uL (4.30-6.10); WHITE BLOOD COUNT 10.2 10^3/uL (4.0-10.0)
[2019-07-05 20:46] LABS: INR 1.2; PROTHROMBIN TIME 14.9 SECONDS (11.8-14.0)
[2019-07-05 20:47] LABS: PARTIAL THROMBOPLASTIN TIME 33.4 SECONDS (25.0-38.4)
[2019-07-05 21:15] LABS: BLOOD UREA NITROGEN 33 MG/DL (7-18); CALCIUM LEVEL 9.8 MG/DL (8.8-10.2); CARBON DIOXIDE LEVEL 26 MEQ/L (21-32); CHLORIDE LEVEL 100 MEQ/L (98-107); CK-MB VALUE MASS 1.9 NG/ML (<3.6); CPK CREATINE PHOSPHOKINASE 42 U/L (39-308); CREATININE FOR GFR 1.58 MG/DL (0.70-1.30); GLOMERULAR FILTRATION RATE 44.7 (>35); GLUCOSE, FASTING 204 MG/DL (70-100); MAGNESIUM LEVEL 2.3 MG/DL (1.8-2.4); MB/CK RELATIVE INDEX 4.52 (< OR =4); POTASSIUM SERUM 3.9 MEQ/L (3.5-5.1); SODIUM LEVEL 135 MEQ/L (136-145); TROPONIN I < 0.02 NG/ML (< 0.10)
--- NOTE | 2019-07-05 21:27 | REPVR ---
PROCEDURE INFORMATION: Exam: XR Chest, 2 Views Exam date and time: 07/05/2019 7:54 PM Age: 83 years old Clinical indication: Other: Syncope TECHNIQUE: Imaging protocol: XR of the chest Views: 2 views. COMPARISON: CR PORTABLE CHEST X-RAY 04/30/2019 9:55 AM FINDINGS: Lungs: Coarse interstitial markings, greatest in subpleural regions with areas of lucency consistent with interstitial fibrosis and bullous change. There are no interval infiltrates. Pleural space: Unremarkable. No pleural effusion. No pneumothorax. Heart/Mediastinum: The heart and mediastinum are similar. Bones/joints: Metallic naomi in the left humerus. IMPRESSION: Increased inflation since 04/30/2019. In view of this, there has been little change since the prior study. Electronically signed by: Dayo Spencer On 07/05/2019 21:27:18 PM
[2019-07-05] MEDS ORDERED: NS 500 ML IV ONE (22:15)
[2019-07-05 22:34] LABS: DIGOXIN LEVEL 0.8 NG/ML (0.5-2.0)
[2019-07-05 23:22] VITALS: BP 138/96
--- NOTE | 2019-07-06 05:54 | ECGEPIP ---
[facility] - ED Test Date: 2019-07-05 Pat Name: TY MARIE Department: Room: - Gender: Male [employer] Mason: CAROLYN : 1935 Requested By: GILMAR Rowe Order Number: [id number] Reading MD: Delon Biggs Measurements Intervals [place] Rate: 88 P: [place]: 0 QRS: -34 QRSD: 145 T: 112 QT: 404 QTc: 491 Interpretive Statements ATRIAL FIBRILLATION LEFT AXIS DEVIATION RIGHT BUNDLE BRANCH BLOCK NSTTW ABNORMALITIES SIMILAR TO 04/30/19 Electronically Signed on 07-06-2019 5:54:37 EST by Delon Biggs
== END 2019-07-06 00:18 | disposition home or self-care (01) ==
LOC: M ED 19:33
DX: R55 Syncope and collapse (principal); I45.10 Unspecified right bundle-branch block; E11.9 Type 2 diabetes mellitus without complications; I50.9 Heart failure, unspecified; J44.9 Chronic obstructive pulmonary disease, unspecified; I48.91 Unspecified atrial fibrillation; E78.9 Disorder of lipoprotein metabolism, unspecified; G47.33 Obstructive sleep apnea (adult) (pediatric); K21.9 Gastro-esophageal reflux disease without esophagitis; N40.0 Benign prostatic hyperplasia without lower urinary tract symptoms; Z79.899 Other long term (current) drug therapy; Z79.82 Long term (current) use of aspirin; Z88.8 Allergy status to other drugs, medicaments and biological substances; Z87.891 Personal history of nicotine dependence

== ENCOUNTER → 2019-08-09 | Outpatient (CLI) | payer MEDICARE, MEDICAID ==
[~2019-08-09] MED LIST changes: +AMIT24CA7 PO; +ENSULIQ8 PO; +OMEP-221 PO
--- NOTE | 2019-08-09 13:05 | REP ---
Bilateral lower extremity deep vein duplex ultrasound: The deep veins demonstrate normal compression, normal Doppler color flow and normal Doppler waveforms with respiration augmentation from the popliteal veins to the common femoral veins bilaterally. Impression: There is no deep vein thrombus in the right or left lower extremities. Electronically Signed by Mikhail Figueroa MD 08/09/2019 12:56 P
== END ==
LOC: M RAD 12:20
PROVIDERS: ATTEND Registered Nurse
DX: R60.0 Localized edema (principal); M79.661 Pain in right lower leg; M79.662 Pain in left lower leg

== ENCOUNTER 2019-08-16 18:20 | Inpatient (IN) | payer MEDICARE, MEDICAID ==
[~2019-08-16] VITALS: Ht 188 cm; Wt 80.5 kg
[~2019-08-16 18:20] MED LIST changes: +MORPHINE 15 MG SA TAB PO PRN
[2019-08-16 19:12] LABS: BASO # 0.1 10^3/uL (0.0-0.2); BASO % 0.8 % (0.0-1.0); EOS # 0.3 10^3/uL (0.0-0.5); EOS % 2.8 % (0.0-3.0); HEMOGLOBIN 8.2 g/dl (13.5-17.5); LYMPH # 2.1 10^3/uL (1.5-5.0); LYMPH % 19.6 % (24.0-44.0); MEAN CORPUSCULAR HEMOGLOBIN 33.3 pg (27.0-33.0); MEAN CORPUSCULAR HGB CONC 32.8 g/dl (32.0-36.5); MEAN CORPUSCULAR VOLUME 101.6 fl (80.0-96.0); MONO % 8.9 % (0.0-5.0); NEUTROPHILS # 7.1 10^3/uL (1.5-8.5); PLATELET COUNT, AUTOMATED 159 10^3/uL (150-450); RED BLOOD COUNT 2.46 10^6/uL (4.30-6.10); WHITE BLOOD COUNT 10.7 10^3/uL (4.0-10.0)
[2019-08-16 19:23] LABS: INR 1.21; PARTIAL THROMBOPLASTIN TIME 34.3 SECONDS (25.0-38.4)
[2019-08-16 19:32] LABS: ALBUMIN 3.1 GM/DL (3.2-5.2); BILIRUBIN,DIRECT 0.2 MG/DL (0.0-0.2); BILIRUBIN,TOTAL 0.6 MG/DL (0.2-1.0); CK-MB VALUE MASS 2.2 NG/ML (<3.6); CREATININE FOR GFR 1.7 MG/DL (0.70-1.30); GLOMERULAR FILTRATION RATE 41.1 (>35); MB/CK RELATIVE INDEX 4.07 (< OR =4); POTASSIUM SERUM 4.2 MEQ/L (3.5-5.1); TROPONIN I 0.03 NG/ML (< 0.10)
[2019-08-16] MEDS ORDERED: MORP-69 PO (20:21)
[2019-08-16] MEDS ORDERED: ACETAMINOPHEN TAB 650MG DOSE (2X325MG) PO PRN (21:00)
[2019-08-16] MEDS ORDERED: DEXTROSE 50% 50 ML SYRINGE IV PRN (21:00)
[2019-08-16] MEDS ORDERED: GLUCOSE 4 GM CHEW TABLET PO PRN (21:00)
[2019-08-16] MEDS ORDERED: ACETAMINOPH W/CODEINE #3 TAB UD PO PRN (21:00)
[2019-08-16] MEDS ORDERED: POTASSIUM CHLORIDE 10 MEQ SR TABLET PO SCH (21:00)
[2019-08-16] MEDS: HumaLOG INSULIN (NovoLOG) PER UNIT SC SCH (21:00)
[2019-08-16] MEDS ORDERED: GLUCAGON FOR INJ 1 MG VIAL (J1610) SC PRN (21:00)
[2019-08-16] MEDS ORDERED: MORPHINE 15 MG SA TAB PO PRN (21:00)
--- NOTE | 2019-08-16 21:36 | HPEPDOC ---
[facility] Medical History & Physical Date of Admission Aug 16, 2019 Date of Service: Aug 16, 2019 Attending Physician: DOREEN BENÍTEZ MD History and Physical CHIEF COMPLAINT: [Rectal bleeding] HISTORY OF PRESENT ILLNESS: [83-year-old male with past medical history of diabetes mellitus, congestive heart failure, aortic stenosis, atrial fibrillation, COPD, obstructive sleep apnea, recurrent GI bleed and chronic kidney disease presents from home rectal bleeding. She was admitted with lower GI bleed related to anticoagulation, EGD at that time showed nonbleeding angiectasia in the duodenum which was clipped. Patient has not taken Elavil since then, currently on baby aspirin, reports having a bloody bowel movement at 4 PM, followed by another bloody bowel movement prior to arrival to the emergen cy department. He has not had any further bowel movements since then. He is comfortable in bed, without any complaints was at this time, denies any short of breath, chest pain, nausea, vomiting, abdominal pain or headache.] 10 point review of system is negative so for above PAST MEDICAL HISTORY: 1. [. Diabetes mellitus]. 2. [Congestive heart failure]. 3. [Aortic stenosis]. 4. Atrial fibrillation. 5. COPD 6. Obstructive sleep apnea. 7. GI bleed. 8. Chronic kidney disease PAST SURGICAL HISTORY: 1. [TURP]. 2. [Lithotripsy]. 3. [Esophageal dilation]. SOCIAL HISTORY: Previous smoker. Denies a local use. Denies drug use FAMILY HISTORY: Positive for heart disease ALLERGIES: Please see below. HOME MEDICATIONS: Please see below. PHYSICAL EXAMINATION: VITAL SIGNS: Please see below. GENERAL: [No distress, very hard of hearing] HEENT: [Normocephalic, atraumatic, moist mucous membranes] NECK: [Supple] CARDIOVASCULAR EXAMINATION: [S1, S2, systolic murmur appreciated] RESPIRATORY EXAMINATION: [Diminished, scattered rhonchi, no wheezing] ABDOMINAL EXAMINATION: [Soft, nontender, nondistended, positive bowel sounds] EXTREMITIES: [Range of motion intact] SKIN: [No rash] NEUROLOGICAL EXAMINATION: [Alert and oriented 3, no focal deficits] PSYCHIATRIC EXAMINATION: [Calm and cooperative] LABORATORY DATA: See below. MICROBIOLOGY: Please see below. ASSESSMENT: [Is 83-year-old male with an extensive medical history including recurrent GI bleed is being admitted for GI bleed]. PLAN: 1. [GI bleed]. Recurrent, not on anticoagulation at this time, we'll hold off on PRBC transfusion for now, monitor H&H and transfuse as needed to keep hemoglobin greater than 8. Protonix 40 mg IV twice a day, will consult GI in the morning, clear liquid diet for now. 2. Diabetes mellitus. Hold Levemir, sliding scale insulin coverage with meals and at bedtime. 3. CHF. Blood pressure low normal, hold off on diuresis for now, continue digoxin. 4. Atrial fibrillation. Not on anticoagulation, continue digoxin. 5. CKD - creatinine slightly elevated from baseline, should improve with holding Torsemide, will monitor. 6. COPD - stable, continue home regimen 7. REBEKAH - continue CPAP DVT Prophylaxis - SCDs GI Prophylaxis - Protonix Vital Signs Vital Signs Date Time Temp Pulse Resp B/P (MAP) Pulse Ox O2 Delivery O2 Flow Rate FiO2 08/16/19 19:50 92 98 08/16/19 18:36 98.3 14 95/56 (69) Room Air Laboratory Data Labs 24H Laboratory Tests 2 08/16/19 18:59: Immature Granulocyte % (Auto) 0.9, Neutrophils (%) (Auto) 67.0H, Lymphocytes (%) (Auto) 19.6L, Monocytes (%) (Auto) 8.9H, Eosinophils (%) (Auto) 2.8, Basophils (%) (Auto) 0.8, Neutrophils # (Auto) 7.1, Lymphocytes # (Auto) 2.1, Monocytes # (Auto) 1.0H, Eosinophils # (Auto) 0.3, Basophils # (Auto) 0.1, Nucleated Red Blood Cells % (auto) 0.2H, Prothrombin Time 15.0H, Prothromb Time International Ratio 1.21, Activated Partial Thromboplast Time 34.3, Anion Gap 5L, Glomerular Filtration Rate 41.1, Calcium Level 9.0, Total Bilirubin 0.6, Direct Bilirubin 0.2, Aspartate Amino Transf (AST/SGOT) 24, Alanine Aminotransferase (ALT/SGPT) 20, Alkaline Phosphatase 92, Total Creatine Kinase 54, Creatine Kinase MB 2.2, Creatine Kinase MB Relative Index 4.07H, Troponin I 0.03, Total Protein 7.0, Albumin 3.1L, Albumin/Globulin Ratio 0.79L, Lipase 44L CBC/BMP Laboratory Tests 08/16/19 18:59 Home Medications Scheduled Allopurinol (Allopurinol) 100 Mg Tab, 200 MG PO DAILY Aspirin (Aspirin) 81 Mg Tab.chew, 81 MG PO DAILY Calcium Carbonate/Vitamin D3 (Oyster Shell 500-Vit D3 200 Tb) 1 Each Tablet, 2 TAB PO QHS Digoxin (Digoxin) 125 Mcg Tab, 125 MCG PO DAILY Docusate Sodium (Docusate Sodium) 100 Mg Capsule, 200 MG PO QHS Ferrous Gluconate (Ferrous Gluconate) 324 Mg Tab, 648 MG PO DAILY Fexofenadine HCl (Melinda Allergy) 180 Mg Tab, 180 MG PO DAILY Folic Acid (Folic Acid) 1 Mg Tab, 1 MG PO DAILY Insulin Glargine,Hum.rec.anlog (Lantus Solostar) 100 Unit/1 Ml Insuln.pen, 42 UNITS SC DAILY 0600 Lactose-Reduced Food (Ensure Liquid) 237 Ml Liquid, 120 ML PO BID BREAKFAST AND BEDTIME SNACK Levothyroxine Sodium (Levothyroxine Sodium) 125 Mcg Tab, 125 MCG PO DAILY 0600 Lovastatin (Lovastatin) 10 Mg Tab, 10 MG PO QHS Multivitamins (Thera M Plus Tablet) 1 Each Tablet, 1 TAB PO DAILY [place]hel-3/Dha/Epa/Fish Oil (Fish Oil EC 1,000 mg Softgel) 1 Cap Cap, 1 CAP PO BID Omeprazole (Omeprazole) 40 Mg Capsule.dr, 40 MG PO DAILY Potassium Chloride (Potassium Chloride) 20 Meq Tab.er.prt, 20 MEQ PO BID Sennosides (Senna) 8.6 Mg Tablet, 2 TAB PO DAILY Torsemide (Torsemide) 20 Mg Tablet, 40 MG PO BID 0800 and 1400 Scheduled PRN Acetaminophen (Acetaminophen) 325 Mg Tablet, 650 MG PO Q4H PRN for PAIN / FEVER Acetaminophen with Codeine (Acetaminophen-Cod #3 Tablet) 1 Each Tablet, 1 TAB PO Q6H PRN for PAIN Magnesium Hydroxide (Milk of Magnesia) 400 Mg/5 Ml Oral.susp, 2,400 MG PO DAILY PRN for CONSTIPATION Melatonin (Melatonin) 10 Mg Tablet, 10 MG PO QHS PRN for SLEEP Morphine Sulfate (Morphine Sulfate ER) 15 Mg Tabcr, 30 MG PO QHS PRN for PAIN Morphine Sulfate (Morphine Sulfate ER) 30 Mg Tablet.er, 30 MG PO DAILY PRN for PAIN ONLY TO BE GIVEN AT 0600 Morphine Sulfate (Morphine Sulfate ER) 15 Mg Tablet.er, 15 MG PO DAILY PRN for PAIN ONLY BETWEEN 0800 AND 1200 Nitroglycerin (Nitrostat) 0.4 Mg Subl, 0.4 MG SL NITRO PRN for CHEST PAIN Polyethylene Glycol 3350 (Miralax) 17 Gm Powd.pack, 17 GM PO DAILY PRN for CONSTIPATION Sennosides (Senna) 8.6 Mg Tablet, 1 TAB PO QHS PRN for CONSTIPATION Allergies Coded Allergies: Beta-Blockers (Beta-Adrenergic Bloc (Verified Allergy, Unknown, 05/09/19) spironolactone (Verified Allergy, Unknown, 05/09/19) warfarin (Verified Allergy, Unknown, 05/09/19) indomethacin (Verified Adverse Reaction, Intermediate, HALLUCINATIONS, 05/09/19) A-FIB/CHADSVASC A-FIB History Current/History of A-Fib/PAF?: Yes Current PO Anticoag Therapy: No Treatment Reason Anticoagulant not given: Current bleeding DOREEN BENÍTEZ MD Aug 16, 2019 21:36
[2019-08-16 22:40] VITALS: BP 121/55
[2019-08-16] MEDS: DOCUSATE SODIUM 100 MG CAP PO SCH (23:04)
[2019-08-16] MEDS: SIMVASTATIN 10 MG TAB PO SCH (23:24)
[2019-08-16] MEDS: CALCIUM/VITAMIN D 500 MG TAB PO SCH (23:24)
[2019-08-16] MEDS: PANTOPRAZOLE 40MG INJ (PROTONIX) (C9113) IV SCH (23:24)
[2019-08-17] VITALS (17 sets, daily range): BP systolic 98–140; BP diastolic 54–79
[2019-08-17 02:06] LABS: HEMATOCRIT 19.8 % (42.0-52.0); HEMOGLOBIN 6.4 g/dl (13.5-17.5)
[2019-08-17] MEDS: LEVOTHYROXINE 125MCG TABLET (0.125MG) PO SCH (06:29)
[2019-08-17 08:57] LABS: HEMATOCRIT 26.7 % (42.0-52.0); HEMOGLOBIN 8.9 g/dl (13.5-17.5); MEAN CORPUSCULAR HEMOGLOBIN 33.1 pg (27.0-33.0); MEAN CORPUSCULAR HGB CONC 33.3 g/dl (32.0-36.5); MEAN CORPUSCULAR VOLUME 99.3 fl (80.0-96.0); PLATELET COUNT, AUTOMATED 137 10^3/uL (150-450); RED BLOOD COUNT 2.69 10^6/uL (4.30-6.10); WHITE BLOOD COUNT 9.4 10^3/uL (4.0-10.0)
[2019-08-17] MEDS ORDERED: TORSEMIDE 20 MG TAB PO SCH (09:00)
[2019-08-17] MEDS ORDERED: LEVEMIR (INSULIN DETEMIR) 1 UNITS/0.01ML SC SCH (09:00)
[2019-08-17] MEDS: ASPIRIN 81 MG CHEW TABLET PO SCH ×2 (09:00→09:05)
[2019-08-17] MEDS: PANTOPRAZOLE 40MG INJ (PROTONIX) (C9113) IV SCH ×2 (09:05→20:38)
[2019-08-17] MEDS: HumaLOG INSULIN (NovoLOG) PER UNIT SC SCH ×4 (09:05→20:39)
[2019-08-17] MEDS: FOLIC ACID 1 MG TAB PO SCH (09:05)
[2019-08-17] MEDS: MULTIVITAMINS/MINERALS THERAP 1 TAB PO SCH (09:05)
[2019-08-17] MEDS: FERROUS GLUCONATE 324 MG TAB PO SCH (09:06)
[2019-08-17] MEDS: allopurinoL 100 MG TAB PO SCH (09:06)
[2019-08-17] MEDS: FEXOFENADINE 60 MG TAB PO SCH (09:06)
[2019-08-17] MEDS: DIGOXIN 0.125 MG TAB PO SCH (09:07)
[2019-08-17 09:15] LABS: ALBUMIN 2.7 GM/DL (3.2-5.2); BILIRUBIN,TOTAL 1.2 MG/DL (0.2-1.0); CALCIUM LEVEL 8.4 MG/DL (8.8-10.2); CREATININE FOR GFR 1.48 MG/DL (0.70-1.30); GLOMERULAR FILTRATION RATE 48.2 (>35); MAGNESIUM LEVEL 2.5 MG/DL (1.8-2.4); POTASSIUM SERUM 3.9 MEQ/L (3.5-5.1); TOTAL PROTEIN 6.8 GM/DL (6.4-8.2)
--- NOTE | 2019-08-17 11:47 | IPNPDOC ---
Date Seen The patient was seen on 08/17/19. Progress Note SUBJECTIVE: Patient states that he continues to have blood in his stool with bowel movements although less in volume than last night. He reportedly had melanotic stool as well as bright red blood. Hb dropped to 6.4 overnight, received 2 units pRBC and repeat at 8.9 this AM. OBJECTIVE PHYSICAL EXAMINATION: VITAL SIGNS: Please see below. General: No acute distress, Alert Eyes: Normal sclera, EOMI HENT: Atraumatic Cardiovascular: Normal rate, normal rhythm. Pulmonary: Clear to auscultation b/l, no wheezing GI: Soft, nontender, nondistended Skin: Warm and dry Neuro: CN grossly intact. No focal deficits. Strengths equal b/l. Psych: oriented x 3 LABORATORY DATA, IMAGING STUDIES, MICROBIOLOGY: Please see below. DVT prophylaxis ordered?: CHHAYA. Lovenox/Heparin held due to bleed ASSESSMENT AND PLAN: 1. GI bleed - history of recurrent bleeds, multiple admissions over the last year with colonoscopies and EGDs. - Previously on Eliquis for Afib but had been held. Was on ASA only, that also held on his admission. - GI consulted. Plan for evaluate bleed with bleeding scan today and likely colonoscopy tomorrow. - Monitor H/H. Transfuse as needed. - c/w Protonix IV BID. 2. Chronic Afib - Hold ASA. Off of Eliquis for a period of time now due to recurrent GI bleed. - c/w digoxin. 3. Chronic HFpEF - Monitor volume status. Does not appear to be in exacerbation. - Torsemide has been held. Consider resuming if patient remains HD stable. 4. DM - 18 units Lev BID noted in previous admission, currently prescribed 42 units Lantus QAM. - Will start on low dose Levemir and titrate as tolerated. - ISS ACHS. 5. CKD - Slightly above baseline. continue to monitor. - Diuretic held temporarily. 6. COPD - Stable. - nebs PRN. c/w home regimen 7. REBEKAH - c/w home CPAP DISPOSITION: Home once stable. VS, I&O, 24H, Fishbone Vital Signs/I&O Vital Signs Date Time Temp Pulse Resp B/P (MAP) Pulse Ox O2 Delivery O2 Flow Rate FiO2 08/17/19 09:07 92 08/17/19 08:00 97.7 18 100/62 (75) 98 Room Air I&O- Last 24 Hours up to 6 AM 08/17/19 06:00 Intake Total 520 ml Output Total 250 ml Balance 270 ml Laboratory Data 24H LABS Laboratory Tests 2 08/16/19 18:59: Immature Granulocyte % (Auto) 0.9, Neutrophils (%) (Auto) 67.0H, Lymphocytes (%) (Auto) 19.6L, Monocytes (%) (Auto) 8.9H, Eosinophils (%) (Auto) 2.8, Basophils (%) (Auto) 0.8, Neutrophils # (Auto) 7.1, Lymphocytes # (Auto) 2.1, Monocytes # (Auto) 1.0H, Eosinophils # (Auto) 0.3, Basophils # (Auto) 0.1, Nucleated Red Blood Cells % (auto) 0.2H, Prothrombin Time 15.0H, Prothromb Time International Ratio 1.21, Activated Partial Thromboplast Time 34.3, Anion Gap 5L, Glomerular Filtration Rate 41.1, Calcium Level 9.0, Total Bilirubin 0.6, Direct Bilirubin 0.2, Aspartate Amino Transf (AST/SGOT) 24, Alanine Aminotransferase (ALT/SGPT) 20, Alkaline Phosphatase 92, Total Creatine Kinase 54, Creatine Kinase MB 2.2, Creatine Kinase MB Relative Index 4.07H, Troponin I 0.03, Total Protein 7.0, Albumin 3.1L, Albumin/Globulin Ratio 0.79L, Lipase 44L 08/16/19 23:02: Bedside Glucose (Misc Panel) 189H 08/17/19 08:33: Nucleated Red Blood Cells % (auto) 0.2H, Anion Gap 3L, Glomerular Filtration Rate 48.2, Calcium Level 8.4L, Total Bilirubin 1.2#H, Aspartate Amino Transf (AST/SGOT) 23, Alanine Aminotransferase (ALT/SGPT) 18, Alkaline Phosphatase 81, Total Protein 6.8, Albumin 2.7L, Albumin/Globulin Ratio 0.66L, Magnesium Level 2.5H 08/17/19 08:44: Bedside Glucose (Misc Panel) 195H CBC/BMP Laboratory Tests 08/16/19 18:59 08/17/19 01:58 08/17/19 08:33 RAJ CANO MD Aug 17, 2019 11:47
--- NOTE | 2019-08-17 14:54 | REP ---
TAGGED RED BLOOD CELL RADIONUCLIDE GI BLEEDING STUDY: HISTORY: Localized bleeding site. History of recurrent bleeding. Comparison study October 25, 2018. TECHNIQUE: 25.2 mCi technetium 99m tagged RBC UltraTag is administered. Sequential anterior flow images are acquired and then followed by sequential 5-minute anterior abdominal and pelvic images. A total of 1 hour of imaging observation is acquired. SCINTIGRAPHIC FINDINGS: The anterior flow study is unremarkable. The sequential 5-minute blood pool images however demonstrate accumulation of contrast in the central pelvis starting at the 5 and 10-minute images. This appears to fill up a vertically oriented structure in the midline which then partially empties at approximately 35-40 minutes and refills again. This correlates with the patient's passing a bloody stool. IMPRESSION: The GI bleed study is positive for localized bleeding in the central pelvis in the midline consistent with rectosigmoid or upper rectal bleed source. Electronically Signed by Barak Perkins MD 08/17/2019 03:03 P
[2019-08-17] MEDS: LEVEMIR (INSULIN DETEMIR) 1 UNITS/0.01ML SC SCH (16:38)
[2019-08-17 16:47] LABS: HEMATOCRIT 26.1 % (42.0-52.0); HEMOGLOBIN 8.8 g/dl (13.5-17.5)
--- NOTE | 2019-08-17 18:38 | CR.PDOC ---
General Date of Consultation: Aug 17, 2019 Referring Provider: RAJ CANO MD Attending Physician: SULLY FOSTER MD Consultation Primary physician/ hospitalist: -Dr. Raj Cano. Reason for consult: -Anemia. HPI: - 83-year-old male patient with DM type II, CHF , moderate aortic stenosis and atrial fibrillation on Eliquis in past, currently off anticoagulation, COPD, not on home oxygen, REBEKAH on CPAP, was sent from [facility], for symptoms of rectal bleeding and noted wto have acute drop in hemoglobin from baseline. GI was consulted for the same. Patient reports having diarrheal bowel movements with darker stools, and bright red blood in stools.. Patient denies any other active GI symptoms. Pertinent negative GI symptoms: Patient denies fever, sick contacts, recent travel, nausea, vomiting, abdominal pain, loss of appetite, early satiety or unintentional weight loss. No history of hematemesis. Off note: Patient had previous history of massive GI bleeding, with multiple transfusions and subsequent embolization by vascular surgery. Review of Systems: GI: as stated above CVS: No chest pain, No palpitations, No leg swelling. RS: No Shortness of breath, No Wheezing, no cough CASING BUILDER: No dizziness, No motor weakness, No sensory problems Hematology: No bruising, No gum bleeding, Musculoskeletal: No joint pain, ambulating well. Skin: No rash : No hematuria, No burning sensation of the urine ENT: No ear discharge/ pain, No dysphagia. Eyes: No photophobia. Jaundice Home medications: reviewed. Antithrombotic agents: on ASA now. Medical h/o: As above. Surgical h/o: None on abdomen. Social h/o: Alcohol: -Denies, smoking: Former smoker, IVDA/ drugs: Denies. Family h/o of GI cancers - None Prior Endoscopies: Multiple EGD and colonoscopy in past ( noted Colonic bleeding lesion in September [address] Vallecillo. 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 Prior GI evaluations: -Previously seen by GI as inpatient in [facility]. Exam: Vitals: reviewed General: Alert and oriented x 3, not in distress HEENT: Conjunctival pallor, no icterus. Normal oropharynx, NO cervical lymph nodes. Chest: symmetric with bilateral clear air entry, CVS: S1, S2 heard, normal, no murmurs . Abdomen: non-distended, soft, non-tender, no palpable masses, normal bowel sounds heard. Rectal exam: Patient refused Extremities: Unilateral left leg edema, pulses palpable. CASING BUILDER: no focal motor or sensory deficits. Moves all extremities Skin: no rash. Labs: reviewed. Imaging: reviewed. Doppler ultrasound lower extremity, rule out DVT. Impression: - Symptomatic anemia with progressive decrease in hemoglobin and hematocrit with overt external bleeding, in a patient with aortic stenosis -- DDx-- likely AVM bleeding ( possible Hydes syndrome) vs Diverticular bleeding vs less likely PUD. Recommendations: - Patient educated about the test results, possible differential diagnoses and All questions answered. - Monitor hemoglobin and hematocrit and transfuse as needed to keep hemoglobin above 8-9 gm/dL (due to aortic stenosis). - Avoid NSAIDs. - Clear liquid diet for now until tomorrow 6 AM. - Risks and benefits of anticoagulation discussed with patient and he verbalized understanding and agreed to hold Eliquis. - Will schedule for EGD and Colonsocopy tomorrow after adequate resuscitation and bowel prep. - The procedures, indications, risks (bleeding, perforation, infection, hypotension, respiratory depression, allergy, need for endotracheal intubation, surgery, colostomy, cardiac arrest, even ), benefits, limitations (e.g., missing a lesion), and all other alternatives (including no intervention) were explained to the patient who understood and agreed for the procedures. - Patient has healthcare proxy (Daughter), And even thoug patient is AAO x 3, patient wanted his daughter to give the conset. So I called the patient daughter and explained the above and she gave informed consent over the phone. - Post procedure follow operative notes for further recommendations. Addendum: Post procedures: For detailed operative notes please see separate operative notes. 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 The likely cause for varicesc ould be from right sided heart failure leading in to increase portal pressures. 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 -- As there is no active variceal bleeding will treat conservatively with rectal preparation H suppositories as needed for 3 days at times and daily miralax along with current fiber medications( colace) to avoid constipation. Plan of care discussed with patient and primary team. Patient verbalized understanding and agreed with the plan. Vital Signs/I&O Vital Signs Date Time Temp Pulse Resp B/P (MAP) Pulse Ox O2 Delivery O2 Flow Rate FiO2 08/17/19 16:00 97.6 85 18 120/65 (83) 98 Room Air l I&O- Last 24 Hours up to 6 AM 08/17/19 06:00 Intake Total 520 ml Output Total 250 ml Balance 270 ml Laboratory Data Labs 24H Laboratory Tests 2 08/16/19 18:59: Immature Granulocyte % (Auto) 0.9, Neutrophils (%) (Auto) 67.0H, Lymphocytes (%) (Auto) 19.6L, Monocytes (%) (Auto) 8.9H, Eosinophils (%) (Auto) 2.8, Basophils (%) (Auto) 0.8, Neutrophils # (Auto) 7.1, Lymphocytes # (Auto) 2.1, Monocytes # (Auto) 1.0H, Eosinophils # (Auto) 0.3, Basophils # (Auto) 0.1, Nucleated Red Blood Cells % (auto) 0.2H, Prothrombin Time 15.0H, Prothromb Time International Ratio 1.21, Activated Partial Thromboplast Time 34.3, Anion Gap 5L, Glomerular Filtration Rate 41.1, Calcium Level 9.0, Total Bilirubin 0.6, Direct Bilirubin 0.2, Aspartate Amino Transf (AST/SGOT) 24, Alanine Aminotransferase (ALT/SGPT) 20, Alkaline Phosphatase 92, Total Creatine Kinase 54, Creatine Kinase MB 2.2, Creatine Kinase MB Relative Index 4.07H, Troponin I 0.03, Total Protein 7.0, Albumin 3.1L, Albumin/Globulin Ratio 0.79L, Lipase 44L 08/16/19 23:02: Bedside Glucose (Misc Panel) 189H 08/17/19 08:33: Nucleated Red Blood Cells % (auto) 0.2H, Anion Gap 3L, Glomerular Filtration Rate 48.2, Calcium Level 8.4L, Total Bilirubin 1.2#H, Aspartate Amino Transf (AST/SGOT) 23, Alanine Aminotransferase (ALT/SGPT) 18, Alkaline Phosphatase 81, Total Protein 6.8, Albumin 2.7L, Albumin/Globulin Ratio 0.66L, Magnesium Level 2.5H 08/17/19 08:44: Bedside Glucose (Misc Panel) 195H 08/17/19 11:59: Bedside Glucose (Misc Panel) 192H 08/17/19 12:01: Methicillin-Resist S.aureus DNA PCR NOT DETECTED 08/17/19 16:19: Bedside Glucose (Misc Panel) 210H CBC/BMP Laboratory Tests 08/16/19 18:59 08/17/19 01:58 08/17/19 08:33 08/17/19 16:35 Allergies Coded Allergies: Beta-Blockers (Beta-Adrenergic Bloc (Verified Allergy, Unknown, 05/09/19) spironolactone (Verified Allergy, Unknown, 05/09/19) warfarin (Verified Allergy, Unknown, 05/09/19) indomethacin (Verified Adverse Reaction, Intermediate, HALLUCINATIONS, 05/09/19) Home Medications Scheduled Allopurinol (Allopurinol) 100 Mg Tab, 200 MG PO DAILY, (Reported) Aspirin (Aspirin) 81 Mg Tab.chew, 81 MG PO DAILY, (Reported) Calcium Carbonate/Vitamin D3 (Oyster Shell 500-Vit D3 200 Tb) 1 Each Tablet, 2 T AB PO QHS, (Reported) Digoxin (Digoxin) 125 Mcg Tab, 125 MCG PO DAILY, (Reported) Docusate Sodium (Docusate Sodium) 100 Mg Capsule, 200 MG PO QHS, (Reported) Ferrous Gluconate (Ferrous Gluconate) 324 Mg Tab, 648 MG PO DAILY, (Reported) Fexofenadine HCl (Melinda Allergy) 180 Mg Tab, 180 MG PO DAILY, (Reported) Folic Acid (Folic Acid) 1 Mg Tab, 1 MG PO DAILY, (Reported) Insulin Glargine,Hum.rec.anlog (Lantus Solostar) 100 Unit/1 Ml Insuln.pen, 42 UNITS SC DAILY, (Reported) 0600 Lactose-Reduced Food (Ensure Liquid) 237 Ml Liquid, 120 ML PO BID, (Reported) BREAKFAST AND BEDTIME SNACK Levothyroxine Sodium (Levothyroxine Sodium) 125 Mcg Tab, 125 MCG PO DAILY, (Reported) 0600 Lovastatin (Lovastatin) 10 Mg Tab, 10 MG PO QHS, (Reported) Multivitamins (Thera M Plus Tablet) 1 Each Tablet, 1 TAB PO DAILY, (Reported) Letcher-3/Dha/Epa/Fish Oil (Fish Oil EC 1,000 mg Softgel) 1 Cap Cap, 1 CAP PO BID, (Reported) Omeprazole (Omeprazole) 40 Mg Capsule.dr, 40 MG PO DAILY, (Reported) Potassium Chloride (Potassium Chloride) 20 Meq Tab.er.prt, 20 MEQ PO BID, (Reported) Sennosides (Senna) 8.6 Mg Tablet, 2 TAB PO DAILY, (Reported) Torsemide (Torsemide) 20 Mg Tablet, 40 MG PO BID, (Reported) 0800 and 1400 Scheduled PRN Acetaminophen (Acetaminophen) 325 Mg Tablet, 650 MG PO Q4H PRN for PAIN / FEVER, (Reported) Acetaminophen with Codeine (Acetaminophen-Cod #3 Tablet) 1 Each Tablet, 1 TAB PO Q6H PRN for PAIN, (Reported) Magnesium Hydroxide (Milk of Magnesia) 400 Mg/5 Ml Oral.susp, 2,400 MG PO DAILY PRN for CONSTIPATION, (Reported) Melatonin (Melatonin) 10 Mg Tablet, 10 MG PO QHS PRN for SLEEP, (Reported) Morphine Sulfate (Morphine Sulfate ER) 15 Mg Tabcr, 30 MG PO QHS PRN for PAIN, (Reported) Morphine Sulfate (Morphine Sulfate ER) 30 Mg Tablet.er, 30 MG PO DAILY PRN for PAIN, (Reported) ONLY TO BE GIVEN AT 0600 Morphine Sulfate (Morphine Sulfate ER) 15 Mg Tablet.er, 15 MG PO DAILY PRN for PAIN, (Reported) ONLY BETWEEN 0800 AND 1200 Nitroglycerin (Nitrostat) 0.4 Mg Subl, 0.4 MG SL NITRO PRN for CHEST PAIN, (Reported) Polyethylene Glycol 3350 (Miralax) 17 Gm Powd.pack, 17 GM PO DAILY PRN for CONSTIPATION, (Reported) Sennosides (Senna) 8.6 Mg Tablet, 1 TAB PO QHS PRN for CONSTIPATION, (Reported) SULLY FOSTER MD Aug 17, 2019 18:38
--- NOTE | 2019-08-17 18:41 | ECGEPIP ---
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
[2019-08-17] MEDS ORDERED: GOLYTELY SOLN 4000 ML BTL PO ONE (19:00)
[2019-08-17] MEDS: SIMVASTATIN 10 MG TAB PO SCH (20:38)
[2019-08-17] MEDS: CALCIUM/VITAMIN D 500 MG TAB PO SCH (20:39)
[2019-08-17] MEDS: DOCUSATE SODIUM 100 MG CAP PO SCH (20:39)
[2019-08-17] MEDS ORDERED: BISACODYL 5 MG TAB PO ONE (22:00)
[2019-08-17 23:50] LABS: HEMATOCRIT 26.2 % (42.0-52.0); HEMOGLOBIN 8.8 g/dl (13.5-17.5)
[2019-08-18] VITALS (11 sets, daily range): BP systolic 102–133; BP diastolic 54–75
[2019-08-18 02:19] LABS: HEMATOCRIT 25.6 % (42.0-52.0); HEMOGLOBIN 8.8 g/dl (13.5-17.5)
[2019-08-18] MEDS ORDERED: GOLYTELY SOLN 4000 ML BTL PO ONE (05:00)
[2019-08-18 05:37] LABS: HEMOGLOBIN 8.7 g/dl (13.5-17.5); MEAN CORPUSCULAR HEMOGLOBIN 32.5 pg (27.0-33.0); MEAN CORPUSCULAR HGB CONC 33.5 g/dl (32.0-36.5); PLATELET COUNT, AUTOMATED 130 10^3/uL (150-450); RED BLOOD COUNT 2.68 10^6/uL (4.30-6.10); WHITE BLOOD COUNT 9.2 10^3/uL (4.0-10.0)
[2019-08-18] MEDS: LEVOTHYROXINE 125MCG TABLET (0.125MG) PO SCH (06:00)
[2019-08-18 06:13] LABS: CALCIUM LEVEL 8.1 MG/DL (8.8-10.2); CREATININE FOR GFR 1.33 MG/DL (0.70-1.30); GLOMERULAR FILTRATION RATE 54.5 (>35); POTASSIUM SERUM 3.1 MEQ/L (3.5-5.1)
[2019-08-18] MEDS: HumaLOG INSULIN (NovoLOG) PER UNIT SC SCH ×4 (07:16→21:00)
[2019-08-18] MEDS ORDERED: POTASSIUM CHLORIDE 10 MEQ SR TABLET PO ONE (08:00)
[2019-08-18] MEDS ORDERED: LIDOCAINE 2% INJ 100 MG/5 ML SDV (FOR ANES.) As Ordered ONE (09:51)
[2019-08-18] MEDS ORDERED: propofoL 200 MG/20 ML VIAL As Ordered ONE (09:51)
[2019-08-18] MEDS ORDERED: LIDOCAINE 2% INJ 100 MG/5 ML SYRINGE As Ordered ONE (09:51)
[2019-08-18] MEDS ORDERED: fentaNYL 100 MCG/2 ML INJECTION (J3010) As Ordered ONE (10:23)
[2019-08-18] MEDS ORDERED: PHENYLephrine HCL 500 MCG/5 ML (100MCG/ML) SYRINGE (J2370) As Ordered ONE (11:06)
--- NOTE | 2019-08-18 11:28 | ROOR ---
Patient Name: Ari Fish Procedure Date: 08/18/2019 4:29 AM Date of : 1935 Age: 83 Gender: Male Note Status: Finalized Procedure: Upper GI endoscopy Indications: Active gastrointestinal bleeding Providers: Adryan Starks MD Referring MD: Koki Garcia Md Requesting Provider: Medicines: Monitored Anesthesia Care Complications: No immediate complications. Procedure: Pre-Anesthesia Assessment: - Prior to the procedure, a History and Physical was performed, and patient medications and allergies were reviewed. The patient is competent. The risks and benefits of the procedure and the sedation options and risks were discussed with the patient. All questions were answered and informed consent was obtained. Patient identification and proposed procedure were verified by the physician, the nurse and the anesthesiologist in the procedure room. Mental Status Examination: alert and oriented. Airway Examination: normal oropharyngeal airway and neck mobility. Respiratory Examination: clear to auscultation. CV Examination: normal. Prophylactic Antibiotics: The patient does not require prophylactic antibiotics. Prior Anticoagulants: The patient has taken no previous anticoagulant or antiplatelet agents. ASA Grade Assessment: III - A patient with severe systemic disease. After reviewing the risks and benefits, the patient was deemed in satisfactory condition to undergo the procedure. The anesthesia plan was to use monitored anesthesia care (MAC). Immediately prior to administration of medications, the patient was re-assessed for adequacy to receive sedatives. The heart rate, respiratory rate, oxygen saturations, blood pressure, adequacy of pulmonary ventilation, and response to care were monitored throughout the procedure. The physical status of the patient was re-assessed after the procedure. The Endoscope was introduced through the mouth, and advanced to the second part of duodenum. The upper GI endoscopy was accomplished without difficulty. The patient tolerated the procedure well. Findings: The examined esophagus was normal. Scattered mild inflammation characterized by erythema and friability was found in the gastric body. The duodenal bulb and second portion of the duodenum were normal. Impression: - Normal esophagus. - Gastritis. - Normal duodenal bulb and second portion of the duodenum. - No specimens collected. Recommendation: - Patient has a contact number available for emergencies. The signs and symptoms of potential delayed complications were discussed with the patient. Return to normal activities tomorrow. Written discharge instructions were provided to the patient. - Return patient to hospital [facility] for ongoing care. - High fiber diet. - Miralax 1 capful (17 grams) in 8 ounces of water PO daily. - Await pathology results. - Return to primary care physician. Adryan Starks MD Adryan Starks MD 08/18/2019 11:27:52 AM Electronically signed by Adryan Starks MD Number of Addenda: 0 Note Initiated On: 08/18/2019 4:29 AM Estimated Blood Loss: Estimated blood loss was minimal.
--- NOTE | 2019-08-18 11:39 | ROOR ---
Patient Name: Ari Fish Procedure Date: 08/18/2019 10:36 AM Date of : 1935 Age: 83 Room: Main OR Gender: Male Note Status: Finalized Procedure: Colonoscopy Indications: Hematochezia Providers: Adryan Starks MD Referring MD: Koki Garcia Md Requesting Provider: Medicines: Monitored Anesthesia Care Complications: No immediate complications. Procedure: Pre-Anesthesia Assessment: - Prior to the procedure, a History and Physical was performed, and patient medications and allergies were reviewed. The patient is competent. The risks and benefits of the procedure and the sedation options and risks were discussed with the patient. All questions were answered and informed consent was obtained. Patient identification and proposed procedure were verified by the physician, the nurse and the anesthesiologist in the procedure room. Mental Status Examination: alert and oriented. Airway Examination: normal oropharyngeal airway and neck mobility. Respiratory Examination: clear to auscultation. CV Examination: normal. Prophylactic Antibiotics: The patient does not require prophylactic antibiotics. Prior Anticoagulants: The patient has taken no previous anticoagulant or antiplatelet agents. ASA Grade Assessment: III - A patient with severe systemic disease. After reviewing the risks and benefits, the patient was deemed in satisfactory condition to undergo the procedure. The anesthesia plan was to use monitored anesthesia care (MAC). Immediately prior to administration of medications, the patient was re-assessed for adequacy to receive sedatives. The heart rate, respiratory rate, oxygen saturations, blood pressure, adequacy of pulmonary ventilation, and response to care were monitored throughout the procedure. The physical status of the patient was re-assessed after the procedure. The Colonoscope was introduced through the anus and advanced to the terminal ileum, with identification of the appendiceal orifice and IC valve. The colonoscopy was performed without difficulty. The patient tolerated the procedure well. The quality of the bowel preparation was good. The ileocecal valve, appendiceal orifice, and rectum were photographed. Scope insertion time was 3 minutes. Scope withdrawal time was 10 minutes. The total duration of the procedure was 15 minutes. Findings: The perianal and digital rectal examinations were normal. The terminal ileum appeared normal. A 8 mm polyp was found in the ascending colon. The polyp was sessile. The polyp was removed with a cold snare. Resection and retrieval were complete. For hemostasis, one hemostatic clip was successfully placed. There was no bleeding at the end of the procedure. The colon (entire examined portion) was moderately tortuous. Advancing the scope required applying abdominal pressure. Medium sized, non-bleeding rectal varices were found. Impression: - The examined portion of the ileum was normal. - One 8 mm polyp in the ascending colon, removed with a cold snare. Resected and retrieved. Clip was placed. - Tortuous colon. - Rectal varices. Recommendation: - Patient has a contact number available for emergencies. The signs and symptoms of potential delayed complications were discussed with the patient. Return to normal activities tomorrow. Written discharge instructions were provided to the patient. - High fiber diet. - Continue present medications. - Preparation H suppository: Insert rectally daily for 3 days when even develops bleeding. - Await pathology results. - Miralax 1 capful (17 grams) in 8 ounces of water PO daily. - Repeat colonoscopy is not recommended due to current age (66 years or older) depending on clinical and functional status. - Return to primary care physician. - Telephone GI clinic for pathology results in 2 weeks. Adryan Starks MD Adryan Starks MD 08/18/2019 11:39:31 AM Electronically signed by Adryan Starks MD Number of Addenda: 0 Note Initiated On: 08/18/2019 10:36 AM Estimated Blood Loss: Estimated blood loss was minimal.
--- NOTE | 2019-08-18 12:03 | IPNPDOC ---
Date Seen The patient was seen on 08/18/19. Progress Note SUBJECTIVE: Patient reportedly still had blood in stool in AM. Received another unit of pRBC last night with Hb still 8.7 this AM. Went for colonoscopy this morning. OBJECTIVE PHYSICAL EXAMINATION: VITAL SIGNS: Please see below. General: No acute distress, Alert Eyes: Normal sclera, EOMI HENT: Atraumatic Cardiovascular: Normal rate, normal rhythm, + murmur Pulmonary: Clear to auscultation b/l, no wheezing GI: Soft, nontender, nondistended Skin: Warm and dry Neuro: CN grossly intact. No focal deficits. Strengths equal b/l. Psych: oriented x 3 LABORATORY DATA, IMAGING STUDIES, MICROBIOLOGY: Please see below. DVT prophylaxis ordered?: CHHAYA. Lovenox/Heparin held due to bleed ASSESSMENT AND PLAN: 1. GI bleed - history of recurrent bleeds, multiple admissions over the last year with colonoscopies and EGDs. - Previously on Eliquis for Afib but had been held. Was on ASA only, that also held on his admission. - Bleeding scan shows evidence of rectosigmoid/upper rectal bleeding source. s/p Colonoscopy and EGD, poly in ascending colon resected, rectal varices. - Monitor H/H. Transfuse as needed. - c/w Protonix IV BID. 2. Chronic Afib - Hold ASA. Off of Eliquis for a period of time now due to recurrent GI bleed. - c/w digoxin. 3. Chronic HFpEF - Monitor volume status. Does not appear to be in exacerbation. - Torsemide has been held. Consider resuming if patient remains HD stable. 4. DM - 18 units Lev BID noted in previous admission, currently prescribed 42 units Lantus QAM. - Will start on low dose Levemir and titrate as tolerated. - ISS ACHS. 5. CKD - Slightly above baseline. continue to monitor. - Diuretic held temporarily. 6. COPD - Stable. - nebs PRN. c/w home regimen 7. REBEKAH - c/w home CPAP DISPOSITION: Home once stable. VS, I&O, 24H, Fishbone Vital Signs/I&O Vital Signs Date Time Temp Pulse Resp B/P (MAP) Pulse Ox O2 Delivery O2 Flow Rate FiO2 08/18/19 11:43 97.4 81 16 107/60 (76) 98 Room Air I&O- Last 24 Hours up to 6 AM 08/18/19 06:00 Intake Total 2770 ml Output Total 1050 ml Balance 1720 ml Laboratory Data 24H LABS Laboratory Tests 2 08/17/19 11:59: Bedside Glucose (Misc Panel) 192H 08/17/19 12:01: Methicillin-Resist S.aureus DNA PCR NOT DETECTED 08/17/19 16:19: Bedside Glucose (Misc Panel) 210H 08/17/19 20:17: Bedside Glucose (Misc Panel) 193H 08/18/19 05:23: Nucleated Red Blood Cells % (auto) 0.2H, Anion Gap 5L, Glomerular Filtration Rate 54.5, Calcium Level 8.1L 08/18/19 11:34: Bedside Glucose (Misc Panel) 137H CBC/BMP Laboratory Tests 08/17/19 16:35 08/17/19 23:40 08/18/19 02:15 08/18/19 05:23 RAJ CANO MD Aug 18, 2019 12:03
[2019-08-18] MEDS: MORPHINE 15 MG SA TAB PO PRN (12:05)
[2019-08-18] MEDS: MULTIVITAMINS/MINERALS THERAP 1 TAB PO SCH (12:23)
[2019-08-18] MEDS: FERROUS GLUCONATE 324 MG TAB PO SCH (12:23)
[2019-08-18] MEDS: allopurinoL 100 MG TAB PO SCH (12:23)
[2019-08-18] MEDS: FOLIC ACID 1 MG TAB PO SCH (12:23)
[2019-08-18] MEDS: DIGOXIN 0.125 MG TAB PO SCH (12:24)
[2019-08-18] MEDS: LEVEMIR (INSULIN DETEMIR) 1 UNITS/0.01ML SC SCH (13:04)
[2019-08-18] MEDS: PANTOPRAZOLE 40MG INJ (PROTONIX) (C9113) IV SCH ×2 (13:04→21:21)
[2019-08-18] MEDS: FEXOFENADINE 60 MG TAB PO SCH (14:39)
[2019-08-18] MEDS: CALCIUM/VITAMIN D 500 MG TAB PO SCH (21:21)
[2019-08-18] MEDS: DOCUSATE SODIUM 100 MG CAP PO SCH (21:22)
[2019-08-18] MEDS: SIMVASTATIN 10 MG TAB PO SCH (21:22)
[2019-08-19 02:00] VITALS: BP 97/53
[2019-08-19 06:00] VITALS: BP 108/59
[2019-08-19] MEDS: LEVOTHYROXINE 125MCG TABLET (0.125MG) PO SCH (06:06)
[2019-08-19 06:45] LABS: HEMATOCRIT 25.9 % (42.0-52.0); HEMOGLOBIN 8.4 g/dl (13.5-17.5); MEAN CORPUSCULAR HEMOGLOBIN 32.1 pg (27.0-33.0); MEAN CORPUSCULAR HGB CONC 32.4 g/dl (32.0-36.5); MEAN CORPUSCULAR VOLUME 98.9 fl (80.0-96.0); PLATELET COUNT, AUTOMATED 132 10^3/uL (150-450); RED BLOOD COUNT 2.62 10^6/uL (4.30-6.10); WHITE BLOOD COUNT 9.3 10^3/uL (4.0-10.0)
[2019-08-19 06:54] LABS: CALCIUM LEVEL 8.6 MG/DL (8.8-10.2); CREATININE FOR GFR 1.46 MG/DL (0.70-1.30); POTASSIUM SERUM 3.5 MEQ/L (3.5-5.1)
[2019-08-19] MEDS: FEXOFENADINE 60 MG TAB PO SCH (08:22)
[2019-08-19] MEDS: FERROUS GLUCONATE 324 MG TAB PO SCH (08:22)
[2019-08-19] MEDS: MULTIVITAMINS/MINERALS THERAP 1 TAB PO SCH (08:22)
[2019-08-19] MEDS: allopurinoL 100 MG TAB PO SCH (08:22)
[2019-08-19] MEDS: DIGOXIN 0.125 MG TAB PO SCH (08:23)
[2019-08-19] MEDS: PANTOPRAZOLE 40MG INJ (PROTONIX) (C9113) IV SCH ×2 (08:23→21:46)
[2019-08-19] MEDS: HumaLOG INSULIN (NovoLOG) PER UNIT SC SCH ×4 (08:24→21:00)
[2019-08-19] MEDS: LEVEMIR (INSULIN DETEMIR) 1 UNITS/0.01ML SC SCH (08:24)
[2019-08-19] MEDS: FOLIC ACID 1 MG TAB PO SCH (08:53)
[2019-08-19 10:00] VITALS: BP 118/64
[2019-08-19 14:00] VITALS: BP 106/53
--- NOTE | 2019-08-19 14:49 | IPNPDOC ---
Date Seen The patient was seen on 08/19/19. Progress Note SUBJECTIVE: Patient s/p colonoscopy and EGD yesterday with clips placement. Reports feeling well without any complaints. Hb stable at 8.4 this AM. Wishes to go back to [place], likely can be arrange tomorrow. OBJECTIVE PHYSICAL EXAMINATION: VITAL SIGNS: Please see below. General: No acute distress, Alert Eyes: Normal sclera, EOMI HENT: Atraumatic Cardiovascular: Normal rate, normal rhythm, + murmur Pulmonary: Clear to auscultation b/l, no wheezing GI: Soft, nontender, nondistended Skin: Warm and dry Neuro: CN grossly intact. No focal deficits. Strengths equal b/l. Psych: oriented x 3 LABORATORY DATA, IMAGING STUDIES, MICROBIOLOGY: Please see below. DVT prophylaxis ordered?: CHHAYA. Lovenox/Heparin held due to bleed ASSESSMENT AND PLAN: 1. GI bleed - history of recurrent bleeds, multiple admissions over the last year with colonoscopies and EGDs. - Previously on Eliquis for Afib but had been held. Was on ASA only, that also held on his admission. - Bleeding scan shows evidence of rectosigmoid/upper rectal bleeding source. s/p Colonoscopy and EGD, poly in ascending colon resected, rectal varices. - Monitor H/H. - c/w Protonix. - Plan for discharge tomorrow back to [place]. 2. Chronic Afib - Hold ASA. Off of Eliquis for a period of time now due to recurrent GI bleed. - c/w digoxin. 3. Chronic HFpEF - Monitor volume status. Does not appear to be in exacerbation. - Torsemide has been held. Consider resuming if patient remains HD stable. 4. DM - 18 units Lev BID noted in previous admission, currently prescribed 42 units Lantus QAM. - Started on low dose Levemir and titrate as tolerated. - ISS ACHS. 5. CKD - Slightly above baseline. continue to monitor. - Diuretic held temporarily. 6. COPD - Stable. - nebs PRN. c/w home regimen 7. REBEKAH - c/w home CPAP DISPOSITION: Home once stable. VS, I&O, 24H, Fishbone Vital Signs/I&O Vital Signs Date Time Temp Pulse Resp B/P (MAP) Pulse Ox O2 Delivery O2 Flow Rate FiO2 08/19/19 10:00 97.4 86 15 118/64 (82) 98 Room Air I&O- Last 24 Hours up to 6 AM 08/19/19 06:00 Intake Total 1080 ml Output Total 250 ml Balance 830 ml Laboratory Data 24H LABS Laboratory Tests 2 08/18/19 17:15: Bedside Glucose (Misc Panel) 206H 08/18/19 21:20: Bedside Glucose (Misc Panel) 183H 08/19/19 05:57: Nucleated Red Blood Cells % (auto) 0.3H, Anion Gap 4L, Glomerular Filtration Rate 49.0, Calcium Level 8.6L 08/19/19 11:14: Bedside Glucose (Misc Panel) 168H CBC/BMP Laboratory Tests 08/19/19 05:57 RAJ CANO MD Aug 19, 2019 14:49
[2019-08-19] MEDS: CALCIUM/VITAMIN D 500 MG TAB PO SCH (21:46)
[2019-08-19] MEDS: DOCUSATE SODIUM 100 MG CAP PO SCH (21:46)
[2019-08-19] MEDS: SIMVASTATIN 10 MG TAB PO SCH (21:47)
[2019-08-19 22:00] VITALS: BP 125/67
[2019-08-20 02:00] VITALS: BP 121/65
[2019-08-20] MEDS: MORPHINE 15 MG SA TAB PO PRN (05:46)
[2019-08-20] MEDS: LEVOTHYROXINE 125MCG TABLET (0.125MG) PO SCH (05:46)
[2019-08-20 06:00] VITALS: BP 123/66
[2019-08-20 06:22] LABS: HEMATOCRIT 27.2 % (42.0-52.0); HEMOGLOBIN 9.1 g/dl (13.5-17.5); MEAN CORPUSCULAR HEMOGLOBIN 33.1 pg (27.0-33.0); MEAN CORPUSCULAR HGB CONC 33.5 g/dl (32.0-36.5); MEAN CORPUSCULAR VOLUME 98.9 fl (80.0-96.0); PLATELET COUNT, AUTOMATED 139 10^3/uL (150-450); RED BLOOD COUNT 2.75 10^6/uL (4.30-6.10); WHITE BLOOD COUNT 9.8 10^3/uL (4.0-10.0)
[2019-08-20 06:40] LABS: CALCIUM LEVEL 8.5 MG/DL (8.8-10.2); CREATININE FOR GFR 1.42 MG/DL (0.70-1.30); GLOMERULAR FILTRATION RATE 50.6 (>35); POTASSIUM SERUM 3.5 MEQ/L (3.5-5.1)
[2019-08-20] MEDS: allopurinoL 100 MG TAB PO SCH (08:51)
[2019-08-20] MEDS: FEXOFENADINE 60 MG TAB PO SCH (08:51)
[2019-08-20] MEDS: FOLIC ACID 1 MG TAB PO SCH (08:52)
[2019-08-20] MEDS: FERROUS GLUCONATE 324 MG TAB PO SCH (08:52)
[2019-08-20] MEDS: MULTIVITAMINS/MINERALS THERAP 1 TAB PO SCH (08:52)
[2019-08-20] MEDS: PANTOPRAZOLE 40MG INJ (PROTONIX) (C9113) IV SCH (08:52)
[2019-08-20] MEDS: HumaLOG INSULIN (NovoLOG) PER UNIT SC SCH ×2 (08:52→12:20)
[2019-08-20] MEDS: LEVEMIR (INSULIN DETEMIR) 1 UNITS/0.01ML SC SCH (08:52)
[2019-08-20] MEDS: DIGOXIN 0.125 MG TAB PO SCH (08:54)
[2019-08-20 10:00] VITALS: BP 120/67
--- NOTE | 2019-08-20 10:12 | DS.PDOC ---
Discharge Summary General Date of Admission Aug 16, 2019 at 20:50 Date of Discharge 08/20/2019 Discharge Summary PROCEDURES PERFORMED DURING STAY: EGD- Findings: The examined esophagus was normal. Scattered mild inflammation characterized by erythema and friability was found in the gastric body. The duodenal bulb and second portion of the duodenum were normal. Impression: - Normal esophagus. - Gastritis. - Normal duodenal bulb and second portion of the duodenum. - No specimens collected. Colonoscopy- Impression: - The examined portion of the ileum was normal. - One 8 mm polyp in the ascending colon, removed with a cold snare. Resected and retrieved. Clip was placed. - Tortuous colon. - Rectal varices. ADMITTING DIAGNOSES: 1. GI bleed 2. DM 3. Chronic HFpEF 4. Atrial fibrillation 5. CKD 6. COPD 7. REBEKAH 8. Aortic stenosis DISCHARGE DIAGNOSES: 1. GI bleed 2. DM 3. Chronic HFpEF 4. Atrial fibrillation 5. CKD 6. COPD 7. REBEKAH 8. Aortic stenosis COMPLICATIONS/CHIEF COMPLAINT: Gi Bleed. HISTORY OF PRESENT ILLNESS: Ivan Juárez's initial H and P "83-year-old male with past medical history of diabetes mellitus, congestive heart failure, aortic stenosis, atrial fibrillation, COPD, obstructive sleep apnea, recurrent GI bleed and chronic kidney disease presents from home rectal bleeding. She was admitted with lower GI bleed related to anticoagulation, EGD at that time showed nonbleeding angiectasia in the duodenum which was clipped. Patient has not taken Elavil since then, currently on baby aspirin, reports having a bloody bowel movement at 4 PM, followed by another bloody bowel movement prior to arrival to the emergency department. He has not had any further bowel movements since then. He is comfortable in bed, without any complaints was at this time, denies any short of breath, chest pain, nausea, vomiting, abdominal pain or headache." HOSPITAL COURSE: Patient has an extensive history of bleeding, had been on Eliquis previously but had been discontinued and only on ASA but still continue to bleed. ASA had been held and patient underwent EGD/Colonoscopy with GI for a polyp resection and clip placement. Bleeding have been controlled and patient has been stable post procedure with no complaints. Patient to be discharged back to assisted living facility. I will continue to hold ASA at this time as patient has a very high risk of recurrent bleed. Patient to follow up with PMD and should deem appropriate can resume it at a later date if patient remains stable without further episodes of bleed. DISCHARGE MEDICATIONS: Please see below. ALLERGIES: Please see below. PHYSICAL EXAMINATION ON DISCHARGE: VITAL SIGNS: Please see below. General: No acute distress, Alert Eyes: Normal sclera, EOMI HENT: Atraumatic Cardiovascular: Normal rate, normal rhythm, + murmur Pulmonary: Clear to auscultation b/l, no wheezing GI: Soft, nontender, nondistended Skin: Warm and dry Neuro: CN grossly intact. No focal deficits. Strengths equal b/l. Psych: oriented x 3 LABORATORY DATA: Please see below. IMAGING: GI bleeding scan- The GI bleed study is positive for localized bleeding in the central pelvis in the midline consistent with rectosigmoid or upper rectal bleed source. ACTIVITY: [As tolerated]. DIET: Consistent carbohydrate DISCHARGE PLAN: Hold ASA at this time f/u PMD within 1 week if possible, reassess timing of ASA re-initiation given high risk of bleed. DISPOSITION: Assisted Living facility. DISCHARGE INSTRUCTIONS: Hold ASA at this time f/u PMD within 1 week if possible, reassess timing of ASA re-initiation given high risk of bleed. ITEMS TO FOLLOWUP ON ON OUTPATIENT: None DISCHARGE CONDITION: [Stable]. TIME SPENT ON DISCHARGE: 35 minutes. Vital Signs/I&Os Vital Signs Date Time Temp Pulse Resp B/P (MAP) Pulse Ox O2 Delivery O2 Flow Rate FiO2 08/20/19 08:54 91 08/20/19 06:00 97.4 17 123/66 (85) 98 Room Air I&O- Last 24 Hours up to 6 AM 08/20/19 06:00 Intake Total 1930 ml Balance 1930 ml Laboratory Data Labs 24H Laboratory Tests 2 08/19/19 11:14: Bedside Glucose (Misc Panel) 168H 08/19/19 17:09: Bedside Glucose (Misc Panel) 124H 08/19/19 20:24: Bedside Glucose (Misc Panel) 224H 08/20/19 05:55: Nucleated Red Blood Cells % (auto) 0.4H, Anion Gap 7L, Glomerular Filtration Rate 50.6, Calcium Level 8.5L CBC/BMP Laboratory Tests 08/20/19 05:55 FSBS Laboratory Tests Test 08/19/19 11:14 08/19/19 17:09 08/19/19 20:24 Range/Units Bedside Glucose (Misc Panel) 168 124 224 83-110 MG/DL Discharge Medications Scheduled Allopurinol (Allopurinol) 100 Mg Tab, 200 MG PO DAILY, (Reported) Calcium Carbonate/Vitamin D3 (Oyster Shell 500-Vit D3 200 Tb) 1 Each Tablet, 2 TAB PO QHS, (Reported) Digoxin (Digoxin) 125 Mcg Tab, 125 MCG PO DAILY, (Reported) Docusate Sodium (Docusate Sodium) 100 Mg Capsule, 200 MG PO QHS, (Reported) Ferrous Gluconate (Ferrous Gluconate) 324 Mg Tab, 648 MG PO DAILY, (Reported) Fexofenadine HCl (Melinda Allergy) 180 Mg Tab, 180 MG PO DAILY, (Reported) Folic Acid (Folic Acid) 1 Mg Tab, 1 MG PO DAILY, (Reported) Insulin Glargine,Hum.rec.anlog (Lantus Solostar) 100 Unit/1 Ml Insuln.pen, 42 UNITS SC DAILY, (Reported) 0600 Lactose-Reduced Food (Ensure Liquid) 237 Ml Liquid, 120 ML PO BID, (Reported) BREAKFAST AND BEDTIME SNACK Levothyroxine Sodium (Levothyroxine Sodium) 125 Mcg Tab, 125 MCG PO DAILY, (Reported) 0600 Lovastatin (Lovastatin) 10 Mg Tab, 10 MG PO QHS, (Reported) Multivitamins (Thera M Plus Tablet) 1 Each Tablet, 1 TAB PO DAILY, (Reported) [place]-3/Dha/Epa/Fish Oil (Fish Oil EC 1,000 mg Softgel) 1 Cap Cap, 1 CAP PO BID, (Reported) Omeprazole (Omeprazole) 40 Mg Capsule.dr, 40 MG PO DAILY, (Reported) Potassium Chloride (Potassium Chloride) 20 Meq Tab.er.prt, 20 MEQ PO BID, (Reported) Sennosides (Senna) 8.6 Mg Tablet, 2 TAB PO DAILY, (Reported) Torsemide (Torsemide) 20 Mg Tablet, 40 MG PO BID, (Reported) 0800 and 1400 Scheduled PRN Acetaminophen (Acetaminophen) 325 Mg Tablet, 650 MG PO Q4H PRN for PAIN / FEVER, (Reported) Acetaminophen with Codeine (Acetaminophen-Cod #3 Tablet) 1 Each Tablet, 1 TAB PO Q6H PRN for PAIN, (Reported) Magnesium Hydroxide (Milk of Magnesia) 400 Mg/5 Ml Oral.susp, 2,400 MG PO DAILY PRN for CONSTIPATION, (Reported) Melatonin (Melatonin) 10 Mg Tablet, 10 MG PO QHS PRN for SLEEP, (Reported) Morphine Sulfate (Morphine Sulfate ER) 15 Mg Tabcr, 30 MG PO QHS PRN for PAIN, (Reported) Morphine Sulfate (Morphine Sulfate ER) 30 Mg Tablet.er, 30 MG PO DAILY PRN for PAIN, (Reported) ONLY TO BE GIVEN AT 0600 Morphine Sulfate (Morphine Sulfate ER) 15 Mg Tablet.er, 15 MG PO DAILY PRN for PAIN, (Reported) ONLY BETWEEN 0800 AND 1200 Nitroglycerin (Nitrostat) 0.4 Mg Subl, 0.4 MG SL NITRO PRN for CHEST PAIN, (Repo rted) Polyethylene Glycol 3350 (Miralax) 17 Gm Powd.pack, 17 GM PO DAILY PRN for CONSTIPATION, (Reported) Sennosides (Senna) 8.6 Mg Tablet, 1 TAB PO QHS PRN for CONSTIPATION, (Reported) Allergies Coded Allergies: Beta-Blockers (Beta-Adrenergic Bloc (Verified Allergy, Unknown, 05/09/19) spironolactone (Verified Allergy, Unknown, 05/09/19) warfarin (Verified Allergy, Unknown, 05/09/19) indomethacin (Verified Adverse Reaction, Intermediate, HALLUCINATIONS, 05/09/19) RAJ CANO MD Aug 20, 2019 10:12
== END 2019-08-20 12:37 | DRG 378 ==
LOC: EDBD 18:20 → M ED 18:20 → M ED INP 20:50 → EEVIPCON 20:50 → ENRESERVDT 22:07 → ENRESERVTM 22:07 → M PCU 22:50 → M MSPAV 08-18 12:01
PROVIDERS: ADMIT Internal Medicine; ATTEND Student in an Organized Health Care Education/Training Program
PROC: 30233N1 Transfusion of Nonautologous Red Blood Cells into Peripheral Vein, Percutaneous Approach (ICD-10-PCS; principal; 2019-08-17)
PROC: 0DJ08ZZ Inspection of Upper Intestinal Tract, Via Natural or Artificial Opening Endoscopic (ICD-10-PCS; 2019-08-18)
PROC: 0DBK8ZZ Excision of Ascending Colon, Via Natural or Artificial Opening Endoscopic (ICD-10-PCS; 2019-08-18)
PROC: 0W3P8ZZ Control Bleeding in Gastrointestinal Tract, Via Natural or Artificial Opening Endoscopic (ICD-10-PCS; 2019-08-18)
DX: K92.2 Gastrointestinal hemorrhage, unspecified (principal); I48.20 Chronic atrial fibrillation, unspecified; I50.32 Chronic diastolic (congestive) heart failure; E11.9 Type 2 diabetes mellitus without complications; I35.0 Nonrheumatic aortic (valve) stenosis; J44.9 Chronic obstructive pulmonary disease, unspecified; G47.33 Obstructive sleep apnea (adult) (pediatric); N18.9 Chronic kidney disease, unspecified; Z79.82 Long term (current) use of aspirin; Z87.891 Personal history of nicotine dependence; Z79.899 Other long term (current) drug therapy; Z88.1 Allergy status to other antibiotic agents; Z88.8 Allergy status to other drugs, medicaments and biological substances

== ENCOUNTER → 2019-08-22 | Outpatient (REF) | payer MEDICARE, MEDICAID ==
[~2019-08-22] MED LIST changes: -MORPHINE 15 MG SA TAB PO PRN
[2019-08-22 11:29] LABS: HEMOGLOBIN 9.2 g/dl (13.5-17.5); MEAN CORPUSCULAR HGB CONC 32.9 g/dl (32.0-36.5); MEAN CORPUSCULAR VOLUME 100.4 fl (80.0-96.0); PLATELET COUNT, AUTOMATED 134 10^3/uL (150-450); RED BLOOD COUNT 2.79 10^6/uL (4.30-6.10); WHITE BLOOD COUNT 8.3 10^3/uL (4.0-10.0)
[2019-08-22 12:02] LABS: CALCIUM LEVEL 8.6 MG/DL (8.8-10.2); CHOLESTEROL RISK RATIO 2.9 (<5); CREATININE FOR GFR 1.53 MG/DL (0.70-1.30); GLOMERULAR FILTRATION RATE 46.4 (>35); POTASSIUM SERUM 3.7 MEQ/L (3.5-5.1)
== END ==
PROVIDERS: ATTEND Internal Medicine
DX: K92.2 Gastrointestinal hemorrhage, unspecified (principal); I13.0 Hypertensive heart and chronic kidney disease with heart failure and stage 1 through stage 4 chronic kidney disease, or unspecified chronic kidney disease; E78.5 Hyperlipidemia, unspecified

== ENCOUNTER → 2019-09-03 | Outpatient (REF) | payer MEDICARE, MEDICAID ==
[2019-09-03 15:08] LABS: BASO # 0.1 10^3/uL (0.0-0.2); BASO % 0.6 % (0.0-1.0); EOS # 0.3 10^3/uL (0.0-0.5); EOS % 3.3 % (0.0-3.0); HEMATOCRIT 33.2 % (42.0-52.0); HEMOGLOBIN 11.1 g/dl (13.5-17.5); LYMPH # 2.8 10^3/uL (1.5-5.0); LYMPH % 28.1 % (24.0-44.0); MEAN CORPUSCULAR HEMOGLOBIN 33.4 pg (27.0-33.0); MEAN CORPUSCULAR HGB CONC 33.4 g/dl (32.0-36.5); MONO # 0.8 10^3/uL (0.0-0.8); MONO % 7.9 % (0.0-5.0); NEUTROPHILS % 59.5 % (36.0-66.0); PLATELET COUNT, AUTOMATED 164 10^3/uL (150-450); RED BLOOD COUNT 3.32 10^6/uL (4.30-6.10)
[2019-09-03 15:32] LABS: CALCIUM LEVEL 9.5 MG/DL (8.8-10.2); CREATININE FOR GFR 1.55 MG/DL (0.70-1.30); GLOMERULAR FILTRATION RATE 45.7 (>35); POTASSIUM SERUM 4.3 MEQ/L (3.5-5.1)
== END ==
PROVIDERS: ATTEND Internal Medicine
DX: K92.2 Gastrointestinal hemorrhage, unspecified (principal)

== ENCOUNTER → 2019-09-19 | Outpatient (REF) | payer MEDICARE, MEDICAID ==
[2019-09-19 11:15] LABS: HEMATOCRIT 34.4 % (42.0-52.0); HEMOGLOBIN 11.5 g/dl (13.5-17.5); MEAN CORPUSCULAR HGB CONC 33.4 g/dl (32.0-36.5); MEAN CORPUSCULAR VOLUME 98.6 fl (80.0-96.0); PLATELET COUNT, AUTOMATED 130 10^3/uL (150-450); RED BLOOD COUNT 3.49 10^6/uL (4.30-6.10); WHITE BLOOD COUNT 8.5 10^3/uL (4.0-10.0)
[2019-09-19 11:16] LABS: CREATININE FOR GFR 1.44 MG/DL (0.70-1.30); GLOMERULAR FILTRATION RATE 49.8 (>35); POTASSIUM SERUM 4.3 MEQ/L (3.5-5.1)
== END ==
PROVIDERS: ATTEND Internal Medicine
DX: K92.2 Gastrointestinal hemorrhage, unspecified (principal)

== ENCOUNTER → 2019-11-02 | Outpatient (REF) | payer MEDICARE, MEDICAID ==
[~2019-11-02] MED LIST changes: -MAPA325T2 PO; +MAPA325T8 PO; -METF-791 PO; +METF-838 PO
[2019-11-02 23:52] LABS: APPEARANCE, URINE CLEAR (CLEAR); BACTERIA, URINE AUTO NEGATIVE (NEGATIVE); BILIRUBIN, URINE AUTO NEGATIVE (NEGATIVE); BLOOD, URINE BLOOD NEGATIVE (NEGATIVE); COLOR, URINE YELLOW (YELLOW); GLUCOSE, URINE (UA) AUTO NEGATIVE (NEGATIVE); KETONE, URINE AUTO NEGATIVE (NEGATIVE); LEUKOCYTE ESTERASE, URINE AUTO NEGATIVE (NEGATIVE); NITRITE, URINE AUTO NEGATIVE (NEGATIVE); PROTEIN, URINE AUTO NEGATIVE (NEGATIVE); RBC, URINE AUTO 0 /HPF (0-3); SPECIFIC GRAVITY URINE AUTO 1.011 (1.002-1.035); SQUAMOUS EPITHELIAL CELL UR AU 0 /HPF (0-6); UROBILINOGEN, URINE AUTO 0.2 mg/dL (0.0-2.0); WBC, URINE AUTO 0 /HPF (0-3)
== END ==
PROVIDERS: ATTEND Internal Medicine
DX: R35.0 Frequency of micturition (principal)

== ENCOUNTER → 2019-11-05 | Outpatient (REF) | payer MEDICARE, MEDICAID ==
[2019-11-05 09:35] LABS: HEMATOCRIT 34.6 % (42.0-52.0); HEMOGLOBIN 11.7 g/dl (13.5-17.5); MEAN CORPUSCULAR HGB CONC 33.8 g/dl (32.0-36.5); MEAN CORPUSCULAR VOLUME 97.5 fl (80.0-96.0); PLATELET COUNT, AUTOMATED 127 10^3/uL (150-450); RED BLOOD COUNT 3.55 10^6/uL (4.30-6.10); WHITE BLOOD COUNT 8.2 10^3/uL (4.0-10.0)
== END ==
PROVIDERS: ATTEND Internal Medicine
DX: Z79.899 Other long term (current) drug therapy (principal)

== ENCOUNTER → 2019-11-19 | Outpatient (REF) | payer MEDICARE, MEDICAID ==
[2019-11-19 11:06] LABS: BASO # 0.1 10^3/uL (0.0-0.2); BASO % 1.1 % (0.0-1.0); EOS # 0.4 10^3/uL (0.0-0.5); EOS % 4.7 % (0.0-3.0); HEMOGLOBIN 12.6 g/dl (13.5-17.5); LYMPH # 2.4 10^3/uL (1.5-5.0); LYMPH % 25.5 % (24.0-44.0); MEAN CORPUSCULAR HEMOGLOBIN 33.7 pg (27.0-33.0); MEAN CORPUSCULAR HGB CONC 34.1 g/dl (32.0-36.5); MEAN CORPUSCULAR VOLUME 98.9 fl (80.0-96.0); MONO # 0.9 10^3/uL (0.0-0.8); MONO % 9.1 % (0.0-5.0); NEUTROPHILS # 5.6 10^3/uL (1.5-8.5); NEUTROPHILS % 59.1 % (36.0-66.0); PLATELET COUNT, AUTOMATED 139 10^3/uL (150-450); RED BLOOD COUNT 3.74 10^6/uL (4.30-6.10); WHITE BLOOD COUNT 9.5 10^3/uL (4.0-10.0)
== END ==
PROVIDERS: ATTEND Internal Medicine
DX: Z79.899 Other long term (current) drug therapy (principal)

== ENCOUNTER → 2019-12-04 | Outpatient (REF) | payer MEDICARE, MEDICAID ==
[2019-12-04 09:58] LABS: BASO # 0.1 10^3/uL (0.0-0.2); BASO % 0.8 % (0.0-1.0); EOS # 0.4 10^3/uL (0.0-0.5); EOS % 4.9 % (0.0-3.0); HEMATOCRIT 33.7 % (42.0-52.0); HEMOGLOBIN 11.3 g/dl (13.5-17.5); LYMPH # 2.2 10^3/uL (1.5-5.0); LYMPH % 25.6 % (24.0-44.0); MEAN CORPUSCULAR HEMOGLOBIN 33.9 pg (27.0-33.0); MEAN CORPUSCULAR HGB CONC 33.5 g/dl (32.0-36.5); MEAN CORPUSCULAR VOLUME 101.2 fl (80.0-96.0); MONO # 0.7 10^3/uL (0.0-0.8); MONO % 7.9 % (0.0-5.0); NEUTROPHILS # 5.2 10^3/uL (1.5-8.5); NEUTROPHILS % 60.1 % (36.0-66.0); PLATELET COUNT, AUTOMATED 114 10^3/uL (150-450); RED BLOOD COUNT 3.33 10^6/uL (4.30-6.10); WHITE BLOOD COUNT 8.6 10^3/uL (4.0-10.0)
== END ==
PROVIDERS: ATTEND Internal Medicine
DX: S80.811A Abrasion, right lower leg, initial encounter (principal); D50.9 Iron deficiency anemia, unspecified

== ENCOUNTER 2019-12-17 11:45 | Emergency (ER) | payer MEDICARE, MEDICAID ==
[~2019-12-17] VITALS: Ht 188 cm; Wt 81.4 kg
[~2019-12-17 11:45] MED LIST changes: +CALC-212 PO; -CALC600T7 PO; -LORA-674 PO; -MAGN400O49 PO; +MILK400S19 PO; -MOVA1TAB2 PO; +NALO25TA PO
[2019-12-17] MEDS ORDERED: LORA-674 PO (12:46)
[2019-12-17 14:29] VITALS: BP 105/66
== END 2019-12-17 15:28 | disposition home or self-care (01) ==
LOC: M ED 11:45 → EDBD 11:45 → M ED 15:28
DX: S50.311A Abrasion of right elbow, initial encounter (principal); S00.83XA Contusion of other part of head, initial encounter; W18.39XA Other fall on same level, initial encounter; Y92.89 Other specified places as the place of occurrence of the external cause; I50.9 Heart failure, unspecified; I11.9 Hypertensive heart disease without heart failure; J45.909 Unspecified asthma, uncomplicated; J44.9 Chronic obstructive pulmonary disease, unspecified; E11.9 Type 2 diabetes mellitus without complications; E03.9 Hypothyroidism, unspecified; E78.5 Hyperlipidemia, unspecified; I48.91 Unspecified atrial fibrillation; K21.9 Gastro-esophageal reflux disease without esophagitis; F33.9 Major depressive disorder, recurrent, unspecified; F41.9 Anxiety disorder, unspecified; N40.0 Benign prostatic hyperplasia without lower urinary tract symptoms; Z79.899 Other long term (current) drug therapy; Z79.4 Long term (current) use of insulin; Z88.8 Allergy status to other drugs, medicaments and biological substances

== ENCOUNTER → 2019-12-17 | Outpatient (REF) | payer MEDICARE, MEDICAID ==
[~2019-12-17] MED LIST changes: +LORA-674 PO
[2019-12-17 12:17] LABS: BASO # 0.1 10^3/uL (0.0-0.2); BASO % 0.7 % (0.0-1.0); EOS # 0.2 10^3/uL (0.0-0.5); EOS % 2.7 % (0.0-3.0); HEMATOCRIT 34.6 % (42.0-52.0); HEMOGLOBIN 11.7 g/dl (13.5-17.5); LYMPH # 2.1 10^3/uL (1.5-5.0); LYMPH % 25.3 % (24.0-44.0); MEAN CORPUSCULAR HEMOGLOBIN 34.3 pg (27.0-33.0); MEAN CORPUSCULAR HGB CONC 33.8 g/dl (32.0-36.5); MEAN CORPUSCULAR VOLUME 101.5 fl (80.0-96.0); MONO # 0.7 10^3/uL (0.0-0.8); MONO % 8.1 % (0.0-5.0); NEUTROPHILS # 5.3 10^3/uL (1.5-8.5); NEUTROPHILS % 62.6 % (36.0-66.0); PLATELET COUNT, AUTOMATED 122 10^3/uL (150-450); RED BLOOD COUNT 3.41 10^6/uL (4.30-6.10); WHITE BLOOD COUNT 8.4 10^3/uL (4.0-10.0)
== END ==
PROVIDERS: ATTEND Internal Medicine
DX: D50.9 Iron deficiency anemia, unspecified (principal); S80.811A Abrasion, right lower leg, initial encounter

== ENCOUNTER → 2019-12-31 | Outpatient (REF) | payer MEDICARE, MEDICAID ==
[~2019-12-31] MED LIST changes: +LORA-674 PO; +MILKSUS3 PO
[2020-03-12 13:13] LABS: HEMATOCRIT 37.8 % (42.0-52.0); MEAN CORPUSCULAR HEMOGLOBIN 34.7 pg (27.0-33.0); MEAN CORPUSCULAR HGB CONC 34.4 g/dl (32.0-36.5); MEAN CORPUSCULAR VOLUME 100.8 fl (80.0-96.0); PLATELET COUNT, AUTOMATED 143 10^3/uL (150-450); RED BLOOD COUNT 3.75 10^6/uL (4.30-6.10); WHITE BLOOD COUNT 9.6 10^3/uL (4.0-10.0)
== END ==
PROVIDERS: ATTEND Internal Medicine
DX: S80.811A Abrasion, right lower leg, initial encounter (principal); D50.9 Iron deficiency anemia, unspecified

== ENCOUNTER 2020-01-23 11:03 | Emergency (ER) | payer MEDICARE, MEDICAID ==
[~2020-01-23] VITALS: Ht 188 cm; Wt 82.2 kg
[~2020-01-23 11:03] MED LIST changes: -MILKSUS3 PO
[2020-01-23] MEDS ORDERED: LIDOCAINE 2% 5ML JELLY UROJET TOP ONE (11:45)
[2020-01-23] MEDS ORDERED: FISH1000 PO (11:51)
[2020-01-23] MEDS ORDERED: TORS20TA2 PO (12:05)
[2020-01-23] MEDS ORDERED: AMIT24CA7 PO (12:09)
[2020-01-23 12:56] LABS: APPEARANCE, URINE CLEAR (CLEAR); BACTERIA, URINE AUTO NEGATIVE (NEGATIVE); BILIRUBIN, URINE AUTO NEGATIVE (NEGATIVE); BLOOD, URINE BLOOD NEGATIVE (NEGATIVE); COLOR, URINE YELLOW (YELLOW); GLUCOSE, URINE (UA) AUTO NEGATIVE (NEGATIVE); KETONE, URINE AUTO NEGATIVE (NEGATIVE); LEUKOCYTE ESTERASE, URINE AUTO NEGATIVE (NEGATIVE); NITRITE, URINE AUTO NEGATIVE (NEGATIVE); PROTEIN, URINE AUTO NEGATIVE (NEGATIVE); RBC, URINE AUTO 1 /HPF (0-3); SPECIFIC GRAVITY URINE AUTO 1.009 (1.002-1.035); SQUAMOUS EPITHELIAL CELL UR AU 0 /HPF (0-6); UROBILINOGEN, URINE AUTO 0.2 mg/dL (0.0-2.0); WBC, URINE AUTO 0 /HPF (0-3)
[2020-01-23 12:59] LABS: BASO # 0.1 10^3/uL (0.0-0.2); BASO % 0.5 % (0.0-1.0); EOS # 0.1 10^3/uL (0.0-0.5); HEMATOCRIT 36.9 % (42.0-52.0); HEMOGLOBIN 12.9 g/dl (13.5-17.5); LYMPH # 2.9 10^3/uL (1.5-5.0); LYMPH % 21.9 % (24.0-44.0); MEAN CORPUSCULAR HEMOGLOBIN 35.2 pg (27.0-33.0); MEAN CORPUSCULAR VOLUME 100.8 fl (80.0-96.0); MONO # 1.3 10^3/uL (0.0-0.8); MONO % 9.6 % (0.0-5.0); NEUTROPHILS # 8.8 10^3/uL (1.5-8.5); NEUTROPHILS % 66.3 % (36.0-66.0); PLATELET COUNT, AUTOMATED 160 10^3/uL (150-450); RED BLOOD COUNT 3.66 10^6/uL (4.30-6.10); WHITE BLOOD COUNT 13.3 10^3/uL (4.0-10.0)
[2020-01-23 13:21] LABS: CALCIUM LEVEL 9.2 MG/DL (8.8-10.2); CREATININE FOR GFR 1.82 MG/DL (0.70-1.30); GLOMERULAR FILTRATION RATE 37.9 (>35); POTASSIUM SERUM 3.5 MEQ/L (3.5-5.1)
[2020-01-23 14:49] VITALS: BP 100/53
== END 2020-01-23 15:14 | disposition home or self-care (01) ==
LOC: M ED 11:03 → EDBD 11:03 → M ED 15:14
DX: R33.9 Retention of urine, unspecified (principal); N40.1 Benign prostatic hyperplasia with lower urinary tract symptoms; E11.9 Type 2 diabetes mellitus without complications; I50.9 Heart failure, unspecified; N18.2 Chronic kidney disease, stage 2 (mild); J44.9 Chronic obstructive pulmonary disease, unspecified; G47.33 Obstructive sleep apnea (adult) (pediatric); I48.91 Unspecified atrial fibrillation; Z79.899 Other long term (current) drug therapy; Z79.4 Long term (current) use of insulin; Z88.8 Allergy status to other drugs, medicaments and biological substances

== ENCOUNTER 2020-02-09 18:27 | Emergency (ER) | payer MEDICARE, MEDICAID ==
[~2020-02-09] VITALS: Ht 188 cm; Wt 79.5 kg
--- NOTE | 2020-02-09 19:42 | REPVR ---
PROCEDURE INFORMATION: Exam: XR Abdomen, 1 View Exam date and time: 02/09/2020 6:57 PM Age: 84 years old Clinical indication: Constipation TECHNIQUE: Imaging protocol: XR of the abdomen. Views: Frontal supine view of the abdomen. 1 View. COMPARISON: CR Abdomen,Flat Plate KUB 10/21/2018 12:25 PM FINDINGS: Gastrointestinal tract: Bowel gas pattern is normal. No evidence of obstruction. Organs: A 5 mm calculus again projects over the lower pole right kidney. Vasculature: There are now embolization coils to the right of midline at the L2 level. There are vascular calcifications in the splenic artery. Bones/joints: There is an ununited old fracture of the right anterior 11th rib. IMPRESSION: 1. No evidence of bowel obstruction. 2. 5 mm calculus projects over the lower pole right kidney. 3. New embolization coils to the right of midline at L2. Electronically signed by: Yaneli Gallagher On 02/09/2020 19:41:50 PM
[2020-02-09] MEDS ORDERED: FLOM0.4C39 PO (19:44)
[2020-02-09] MEDS ORDERED: MILKSUS3 PO (19:44)
[2020-02-09] MEDS ORDERED: LACTULOSE 20 GM/30 ML SYRUP UD PO ONE (20:45)
[2020-02-09 21:21] VITALS: BP 111/76
== END 2020-02-09 22:15 | disposition home or self-care (01) ==
LOC: M ED 18:27
DX: K59.00 Constipation, unspecified (principal); E11.9 Type 2 diabetes mellitus without complications; I10 Essential (primary) hypertension; Z88.6 Allergy status to analgesic agent; Z88.8 Allergy status to other drugs, medicaments and biological substances

== ENCOUNTER → 2020-02-15 | Outpatient (REF) | payer MEDICARE, MEDICAID ==
[~2020-02-15] MED LIST changes: +MILKSUS3 PO
[2020-02-15 11:03] LABS: HEMOGLOBIN 10.8 g/dl (13.5-17.5); MEAN CORPUSCULAR HEMOGLOBIN 34.8 pg (27.0-33.0); MEAN CORPUSCULAR HGB CONC 33.8 g/dl (32.0-36.5); MEAN CORPUSCULAR VOLUME 103.2 fl (80.0-96.0); PLATELET COUNT, AUTOMATED 176 10^3/uL (150-450); WHITE BLOOD COUNT 8.1 10^3/uL (4.0-10.0)
[2020-02-15 11:25] LABS: HEMOGLOBIN A1c 7.1 %
[2020-02-15 11:36] LABS: ALBUMIN 2.6 GM/DL (3.2-5.2); CALCIUM LEVEL 8.7 MG/DL (8.8-10.2); CHOLESTEROL RISK RATIO 2.388 (<5); CREATININE FOR GFR 1.44 MG/DL (0.70-1.30); GLOMERULAR FILTRATION RATE 49.6 (>35); POTASSIUM SERUM 3.9 MEQ/L (3.5-5.1); TOTAL PROTEIN 6.5 GM/DL (6.4-8.2)
== END ==
PROVIDERS: ATTEND Internal Medicine
DX: I13.0 Hypertensive heart and chronic kidney disease with heart failure and stage 1 through stage 4 chronic kidney disease, or unspecified chronic kidney disease (principal); N18.3 Chronic kidney disease, stage 3 (moderate); I50.9 Heart failure, unspecified; D50.9 Iron deficiency anemia, unspecified; E11.65 Type 2 diabetes mellitus with hyperglycemia; E78.5 Hyperlipidemia, unspecified

== ENCOUNTER → 2020-04-07 | Outpatient (REF) | payer MEDICARE, MEDICAID | LOC: M LAB REF 12:12 | PROVIDERS: ATTEND Internal Medicine | DX: D50.9 Iron deficiency anemia, unspecified (principal) ==

== ENCOUNTER 2020-04-28 13:14 | Inpatient (IN) | payer MEDICARE, MEDICAID ==
[~2020-04-28] VITALS: Ht 188 cm; Wt 79.5 kg
[2020-04-28 14:18] LABS: BASO # 0.1 10^3/uL (0.0-0.2); BASO % 0.5 % (0.0-1.0); EOS # 0.2 10^3/uL (0.0-0.5); EOS % 2.3 % (0.0-3.0); HEMATOCRIT 30.3 % (42.0-52.0); HEMOGLOBIN 9.8 g/dl (13.5-17.5); LYMPH % 19.3 % (24.0-44.0); MEAN CORPUSCULAR HEMOGLOBIN 31.9 pg (27.0-33.0); MEAN CORPUSCULAR HGB CONC 32.3 g/dl (32.0-36.5); MEAN CORPUSCULAR VOLUME 98.7 fl (80.0-96.0); MONO # 0.9 10^3/uL (0.0-0.8); MONO % 8.7 % (0.0-5.0); NEUTROPHILS # 7.1 10^3/uL (1.5-8.5); NEUTROPHILS % 68.4 % (36.0-66.0); PLATELET COUNT, AUTOMATED 165 10^3/uL (150-450); RED BLOOD COUNT 3.07 10^6/uL (4.30-6.10); WHITE BLOOD COUNT 10.4 10^3/uL (4.0-10.0)
--- NOTE | 2020-04-28 14:22 | REP ---
INDICATION: CHEST PAIN. COMPARISON: Comparison chest x-ray July 05, 2019.. TECHNIQUE: Upright portable chest x-ray: Two views. FINDINGS: Monitoring electrodes are seen. There is an intramedullary orthopedic nail in the humerus on the left. No other significant bony abnormality. Heart is not felt to be enlarged. A diffuse interstitial fibrosis pattern is noted moderate in degree. This is felt to be unchanged. No acute infiltrate is appreciated. The aorta is slightly tortuous. An atrial appendage closure device is noted in place. IMPRESSION: Diffuse interstitial fibrosis pattern again seen. No acute infiltrate. Atrial appendage closure device noted. No acute changes. <Electronically signed by Jose Perkins > 04/28/20 [id number]
[2020-04-28 14:28] LABS: INR 1.12; PROTHROMBIN TIME 14.6 SECONDS (12.5-14.3)
[2020-04-28 14:49] LABS: ALBUMIN 2.9 GM/DL (3.2-5.2); BILIRUBIN,DIRECT 0.3 MG/DL (0.0-0.2); BILIRUBIN,TOTAL 0.8 MG/DL (0.2-1.0); CALCIUM LEVEL 8.5 MG/DL (8.8-10.2); CK-MB VALUE MASS 1.5 NG/ML (<3.6); CREATININE FOR GFR 1.41 MG/DL (0.70-1.30); GLOMERULAR FILTRATION RATE 50.9 (>35); MB/CK RELATIVE INDEX 2.94 (< OR =4); POTASSIUM SERUM 4.4 MEQ/L (3.5-5.1); TOTAL PROTEIN 7.1 GM/DL (6.4-8.2); TROPONIN I 0.03 NG/ML (< 0.10)
--- NOTE | 2020-04-28 15:14 | REP ---
INDICATION: B/l LE swelling. COMPARISON: Comparison study August 09, 2019.. TECHNIQUE: Bilateral lower extremity duplex venous sonography. FINDINGS: The deep veins are anechoic and fully compressible from the groin to the popliteal fossa in the right lower extremity. Color flow imaging is homogeneous. Spectral Doppler interrogation demonstrates intact respiratory variation in flow and normal manual augmentation of flow. There is no evidence of deep vein thrombosis. On the left however there is a focal echogenic intraluminal stray logan in the left femoral vein proximal thigh consistent with deep vein thrombosis. The vein is not occluded and the echogenicity of the structure suggests the possibility of a chronic DVT finding. Left lower extremity scanning shows otherwise anechoic fully compressible deep veins without Doppler abnormality. IMPRESSION: There is a linear echogenic structure in the lumen of the left femoral vein consistent with left deep venous thrombosis, possibly chronic. Otherwise negative. No evidence of DVT on the right.. <Electronically signed by Jose Perkins > 04/28/20 [id number]
[2020-04-28] MEDS ORDERED: ACET1TAB16 PO (16:25)
[2020-04-28] MEDS ORDERED: PRIM50TA6 PO (16:25)
[2020-04-28] MEDS ORDERED: MORPHINE 2 MG/ML 1ML VIAL (J2270) IV ONE (17:15)
[2020-04-28] MEDS ORDERED: MAALOX 30 ML SUSP *UDC PO PRN (17:45)
[2020-04-28] MEDS ORDERED: MOM 30ML SUSPENSION UDC PO PRN (17:45)
--- NOTE | 2020-04-28 18:40 | HPEPDOC ---
[facility] Medical History & Physical Date of Admission Apr 28, 2020 Date of Service: Apr 28, 2020 History and Physical CHIEF COMPLAINT: Bilateral Lower Extremity Swelling and Pain HISTORY OF PRESENT ILLNESS: 84-year-old male with a history of type 2 diabetes, CHF, COPD, atrial fibrillation, REBEKAH as well as frequent GI bleeding. Refer to ER by his primary care doctor, Dr. Bernardo after being seen this morning for significant bilateral lower extremity edema. Patient states that the edema has been present for several for approximately a week is associated bilateral lower extremity pain, particular manipulation compression stockings. He denies acute shortness of breath or worsening shortness of breath for the past week. He denies any PND or orthopnea. He denies chest pain or palpitations. He has no cough or fevers. In the ED, bilateral venous duplex revealed findings suggestive of left lower extremity DVT, although is chronic in appearance per read. Patient states that he has a history of frequent PEs and DVTs, unable to specify last. Given his frequent as hospitalizations for acute anemia secondary to GI bleeding, the patient is not a candidate for anticoagulation. Eliquis was stopped in July 2019 during admission for severe acute blood loss anemia secondary to bleeding rectal varices. Blood pressure in remission 101 was 6, temperature 90.8, pulse 99, blood pressure 38085, pulse oximetry 98% on room air. Labs reviewed. WBC 10.4, hemoglobin 9.8, hematocrit 30.3. , Sodium 134, creatinine 1.41, BUN 33, BNP 6400. PAST MEDICAL HISTORY: 1. Diabetes Mellitus 2 2. CHF 3. Aortic stenosis 4. Atrial fibrillation, not on AC. 5. COPD 6. REBEKAH 7. Frequent GI bleeds 8. Rectal varices 9. CKD 10. Gout PAST SURGICAL HISTORY: 1. TURP 2. Lithotripsy 3. Esophageal dilation 4. L humeral intremedullary orthopedic nail SOCIAL HISTORY: History of smoking, quit 1984 Patient denies etoh use Patient denies illicit drug use FAMILY HISTORY: patient reports hx of CHF in family ALLERGIES: Please see below. REVIEW OF SYSTEMS: Surgery review of systems HOME MEDICATIONS: Please see below. PHYSICAL EXAMINATION: VITAL SIGNS: please see below General: NAD, comfortable HEENT: PERRLA, EOMI, sclerae clear, left eyelid, chronic Neck: supple, normal ROM, no JVD Respiratory: lungs CTAB, no wheeze, no rales, no crackles CVS: RRR, normal S1, S2, no murmurs Abdo: soft, no masses, no hepatosplenomegaly, BS+, no rebound tenderness Extremities: no edema, pulses 2+ MSK: Pulses intact, 2+ bilaterally. No cyanosis. Significant swelling of both lower extremities, left worse than right. Patient is wearing compression stockings. Upon inflation stockings. Patient reporting bilateral significant pain, likely from extensive fluid overload. There is no erythema, weeping. Left foot dorsal surface showing 2 areas of dry skin/possible old ulceration. Neuro: no focal neuro deficits, moving all 4 extremities, CN2-12 intact. Strength 5/5 in all 4 extremities. No nystagmus. Psych: calm, cooperative, AAO x 3 LABORATORY DATA: See below. IMAGING: Bilateral Venous Duplex (04/28/20): The deep veins are anechoic and fully compressible from the groin to the popliteal fossa in the right lower extremity. Color flow imaging is homogeneous. Spectral Doppler interrogation demonstrates intact respiratory variation in flow and normal manual augmentation of flow. There is no evidence of deep vein thrombosis. On the left however there is a focal echogenic intraluminal stray logan in the left femoral vein proximal thigh consistent with deep vein thrombosis. The vein is not occluded and the echogenicity of the structure suggests the possibility of a chronic DVT finding. Left lower extremity scanning shows otherwise anechoic fully compressible deep veins without Doppler abnormality. There is a linear echogenic structure in the lumen of the left femoral vein consistent with left deep venous thrombosis, possibly chronic. Otherwise negative. No evidence of DVT on the right. CXR (04/28/20): Monitoring electrodes are seen. There is an intramedullary orthopedic nail in the humerus on the left. No other significant bony abnormality. Heart is not felt to be enlarged. A diffuse interstitial fibrosis pattern is noted moderate in degree. This is felt to be unchanged. No acute infiltrate is appreciated. The aorta is slightly tortuous. An atrial appendage closure device is noted in place. IMPRESSION: Diffuse interstitial fibrosis pattern again seen. No acute infiltrate. Atrial appendage closure device noted. No acute changes. MICROBIOLOGY: Please see below. ASSESSMENT: 84 yo M with a hx of DM2, chronic afib, HFpEF, COPD, CKD, and recurrent GI bleeds (most recently rectal varices in 07/2019), sent to ER by his PCP Dr. Tova for evaluation of bilateral LE swelling. Diagnosed with DVT in LLE, chronic appearing. Admitted to [facility], planned for possible IVC filter, as not a candidate for half-way anticoagulation. . PLAN: #Left lower extremity chronic DVT: appears chronic per radiology read on venous duplex. Hx of frequent DVTs, PEs. Not a candidate for rodent exterminator AC given hx of frequent GI bleeds. D/w Dr. Carr, IR consult placed for IVC filter. Planned for 04/30/20. Discussed need for interval AC. Decision to hold AC give chronic appearance of DVT and palpable pulses. #History of GI bleeds: last EGD and colonoscopy 07/2019. Gastritis. Rectal varices. Discussed with Dr. Starks. If significant DVT with absent pulses ok to AC with lovenox or heparin ggt, prior to IVC, otherwise ok to hold AC prior to IVC filter. #DM2: Insulin sliding scale. Resume home lantus 42 units SC daily. FSBS AC and HS. Consistent carbohydrate diet. Hypoglycemic precautions. Check a1c. Check lipids. Podiatry and ophtalmology as outpatient. #Atrial fibrillation: Not on anticoagulation, given recurrent bleeding, continue digoxin. Tele. Check digoxin level. #Chronic HFpEF: monitor volume status. BNP 6000. Not in acute respiratory distress. Continue torsemide, takes 40 mg qam, 20 mg qpm. #COPD: Continue home regimen. Duonebs prn. #Hypothyroid: continue levothyroxine 125 mcg daily #REBEKAH: Continue CPAP #Gout: allopurinol #GI Prophylaxis: Protonix DVT prophylaxis: Lovenox 40 mg subcutaneous Dispo: Admission expected to last more than 2 midnights. Planned for an IVC filter on 04/[address] Carr. Code status: DNR/DNI. Vital Signs Vital Signs Date Time Temp Pulse Resp B/P (MAP) Pulse Ox O2 Delivery O2 Flow Rate FiO2 04/28/20 17:30 18 04/28/20 16:00 98/53 (68) 04/28/20 15:59 97 95 Room Air 04/28/20 13:47 98.0 Laboratory Data Labs 24H Laboratory Tests 2 04/28/20 13:50: Immature Granulocyte % (Auto) 0.8, Neutrophils (%) (Auto) 68.4H, Lymphocytes (%) (Auto) 19.3L, Monocytes (%) (Auto) 8.7H, Eosinophils (%) (Auto) 2.3, Basophils (%) (Auto) 0.5, Neutrophils # (Auto) 7.1, Lymphocytes # (Auto) 2.0, Monocytes # (Auto) 0.9H, Eosinophils # (Auto) 0.2, Basophils # (Auto) 0.1, Nucleated Red Blood Cells % (auto) 0.3H, Prothrombin Time 14.6H, Prothromb Time International Ratio 1.12, Anion Gap 6L, Glomerular Filtration Rate 50.9, Calcium Level 8.5L, Total Bilirubin 0.8, Direct Bilirubin 0.3H, Aspartate Amino Transf (AST/SGOT) 32, Alanine Aminotransferase (ALT/SGPT) 16, Alkaline Phosphatase 135H, Total Creatine Kinase 51, Creatine Kinase MB 1.5, Creatine Kinase MB Relative Index 2.94, Troponin I 0.03, EO-Pdc-P-Type Natriuretic Peptide 6442H, Total Protein 7.1, Albumin 2.9L, Albumin/Globulin Ratio 0.7, Lipase 50L 04/28/20 17:19: CBC/BMP Laboratory Tests 04/28/20 13:50 Home Medications Scheduled Allopurinol (Allopurinol) 100 Mg Tab, 200 MG PO DAILY Calcium Carbonate/Vitamin D3 (Oyster Shell 500-Vit D3 200 Tb) 1 Each Tablet, 2 TAB PO QHS Digoxin (Digoxin) 125 Mcg Tab, 125 MCG PO DAILY Docusate Sodium (Docusate Sodium) 100 Mg Capsule, 200 MG PO BID Ferrous Gluconate (Ferrous Gluconate) 324 Mg Tab, 648 MG PO DAILY Folic Acid (Folic Acid) 1 Mg Tab, 1 MG PO DAILY Insulin Glargine,Hum.rec.anlog (Lantus Solostar) 100 Unit/1 Ml Insuln.pen, 42 UNITS SC QAM Levothyroxine Sodium (Levothyroxine Sodium) 125 Mcg Tab, 125 MCG PO QAM Loratadine (Loratadine) 10 Mg Tablet, 10 MG PO DAILY Lovastatin (Lovastatin) 10 Mg Tab, 10 MG PO QHS Lubiprostone (Amitiza) 24 Mcg Capsule, 24 MCG PO BID Multivitamins (Thera M Plus Tablet) 1 Each Tablet, 1 TAB PO DAILY [place]-3/Dha/Epa/Fish Oil (Fish Oil EC 1,000 mg Softgel) 1 Cap Cap, 1 CAP PO BID Omeprazole (Omeprazole) 40 Mg Capsule.dr, 40 MG PO DAILY Potassium Chloride (Potassium Chloride) 20 Meq Tab.er.prt, 20 MEQ PO BID Primidone (Primidone) 50 Mg Tablet, 100 MG PO QHS Sennosides (Senna) 8.6 Mg Tablet, 2 TAB PO DAILY Tamsulosin HCl (Flomax) 0.4 Mg Capsule, 0.4 MG PO DAILY Torsemide (Torsemide) 20 Mg Tablet, 40 MG PO QAM Torsemide (Torsemide) 20 Mg Tablet, 20 MG PO DAILY AT 1400 Scheduled PRN Acetaminophen (Acetaminophen) 325 Mg Tablet, 650 MG PO Q4H PRN for PAIN / FEVER Acetaminophen with Codeine (Acetaminophen-Cod #3 Tablet) 1 Each Tablet, 1 TAB PO Q6H PRN for PAIN Magnesium Hydroxide (Milk of Magnesia) 400 Mg/5 Ml Oral.susp, 60 ML PO DAILY PRN for CONSTIPATION Melatonin (Melatonin) 10 Mg Tablet, 10 MG PO QHS PRN for SLEEP Nitroglycerin (Nitrostat) 0.4 Mg Subl, 0.4 MG SL NITRO PRN for CHEST PAIN Polyethylene Glycol 3350 (Miralax) 17 Gm Powd.pack, 17 GM PO DAILY PRN for CONSTIPATION Sennosides (Senna) 8.6 Mg Tablet, 1 TAB PO QHS PRN for CONSTIPATION Allergies Coded Allergies: Beta-Blockers (Beta-Adrenergic Bloc (Verified Allergy, Unknown, 05/09/19) spironolactone (Verified Allergy, Unknown, 05/09/19) warfarin (Verified Allergy, Unknown, 05/09/19) indomethacin (Verified Adverse Reaction, Intermediate, HALLUCINATIONS, 05/09/19) A-FIB/CHADSVASC A-FIB History Current/History of A-Fib/PAF?: Yes Current PO Anticoag Therapy: No USHA STEARNS MD Apr 28, 2020 18:40
[2020-04-28] MEDS ORDERED: IPRATROPIUM 0.5MG/ALBUTEROL 2.5MG INH SOL UD 3ML (DUONEB) NEB SCH (18:45)
[2020-04-28] MEDS ORDERED: GLUCOSE 4GM CHEW TABLET PO PRN (18:45)
[2020-04-28] MEDS ORDERED: SENNA 8.6 MG TAB (SENOKOT) PO PRN (18:45)
[2020-04-28] MEDS ORDERED: GLUCAGON INJ 1MG VIAL SC PRN (18:45)
[2020-04-28] MEDS ORDERED: NITROGLYCERIN 0.4 MG SUBL TABLET SL PRN (18:45)
[2020-04-28] MEDS ORDERED: DEXTROSE 50% 50 ML SYRINGE IV PRN (18:45)
[2020-04-28] MEDS ORDERED: MIRALAX *UNIT DOSE* 17GM PACKET PO PRN (18:45)
--- NOTE | 2020-04-28 19:17 | ECGEPIP ---
[facility] - ED Test Date: 2020-04-28 Pat Name: TY MARIE Department: Room: - Gender: Male [employer]: GONZALO : 1935 Requested By: Peggy Alvarez Order Number: [id number] Reading MD: Delon Biggs Measurements Intervals [place] Rate: 101 P: [place]: 0 QRS: 33 QRSD: 143 T: 0 QT: 365 QTc: 474 Interpretive Statements ATRIAL FIBRILLATION WITH RAPID VENTRICULAR RESPONSE RIGHT BUNDLE BRANCH BLOCK ST DEPRESSION, CONSIDER SUBENDOCARDIAL INJURY SIMILAR TO 08/16/19 Electronically Signed on 04-28-2020 19:17:45 EST by Delon Biggs
[2020-04-28] MEDS: ACETAMINOPHEN TAB 650MG DOSE (2X325MG) PO PRN (20:11)
[2020-04-28 20:35] VITALS: BP 92/48
[2020-04-28 21:15] VITALS: BP 88/42
[2020-04-28] MEDS ORDERED: GABAPENTIN 300 MG CAP PO ONE (22:00)
[2020-04-28] MEDS ORDERED: NS 500 ML IV ONE (22:00)
[2020-04-28 22:25] VITALS: BP 78/38
[2020-04-28 22:27] VITALS: BP 100/59
[2020-04-28] MEDS: POTASSIUM CHLORIDE 10 MEQ SR TABLET PO SCH (22:59)
[2020-04-28] MEDS: CALCIUM/VITAMIN D 500 MG TAB PO SCH (22:59)
[2020-04-28] MEDS: PRIMIDONE 50 MG TAB PO SCH (22:59)
[2020-04-28] MEDS: SIMVASTATIN 10 MG TAB PO SCH (22:59)
[2020-04-28] MEDS: DOCUSATE SODIUM 100MG CAPSULE PO SCH (22:59)
[2020-04-28 23:00] VITALS: BP 98/62
[2020-04-28] MEDS: HumaLOG INSULIN (NovoLOG) PER UNIT SC SCH (23:00)
[2020-04-28] MEDS: OMEGA-3 1000MG CAPSULE PO SCH (23:51)
[2020-04-29] VITALS: BP 90/42
[2020-04-29] MEDS: ACETAMINOPHEN TAB 650MG DOSE (2X325MG) PO PRN (03:37)
[2020-04-29 04:00] VITALS: BP 101/60
[2020-04-29 05:46] LABS: BASO % 0.5 % (0.0-1.0); EOS # 0.2 10^3/uL (0.0-0.5); EOS % 2.8 % (0.0-3.0); HEMATOCRIT 29.5 % (42.0-52.0); HEMOGLOBIN 9.7 g/dl (13.5-17.5); LYMPH # 2.3 10^3/uL (1.5-5.0); LYMPH % 26.1 % (24.0-44.0); MEAN CORPUSCULAR HEMOGLOBIN 32.6 pg (27.0-33.0); MEAN CORPUSCULAR HGB CONC 32.9 g/dl (32.0-36.5); MONO # 0.7 10^3/uL (0.0-0.8); MONO % 7.9 % (0.0-5.0); NEUTROPHILS # 5.4 10^3/uL (1.5-8.5); NEUTROPHILS % 61.9 % (36.0-66.0); PLATELET COUNT, AUTOMATED 170 10^3/uL (150-450); RED BLOOD COUNT 2.98 10^6/uL (4.30-6.10); WHITE BLOOD COUNT 8.7 10^3/uL (4.0-10.0)
[2020-04-29] MEDS: LEVOTHYROXINE 125MCG TABLET (0.125MG) PO SCH (06:14)
[2020-04-29 06:18] LABS: ALBUMIN 2.5 GM/DL (3.2-5.2); BILIRUBIN,TOTAL 0.8 MG/DL (0.2-1.0); CALCIUM LEVEL 8.1 MG/DL (8.8-10.2); CHOLESTEROL RISK RATIO 2.78 (<5); CREATININE FOR GFR 1.33 MG/DL (0.70-1.30); GLOMERULAR FILTRATION RATE 54.4 (>35); MAGNESIUM LEVEL 2.5 MG/DL (1.8-2.4); POTASSIUM SERUM 4.3 MEQ/L (3.5-5.1); TOTAL PROTEIN 6.4 GM/DL (6.4-8.2)
[2020-04-29 06:50] LABS: HEMOGLOBIN A1c 5.7 %
[2020-04-29] MEDS: HumaLOG INSULIN (NovoLOG) PER UNIT SC SCH ×4 (07:30→20:32)
[2020-04-29] MEDS: LEVEMIR (INSULIN DETEMIR) 1 UNITS/0.01ML SC SCH (07:46)
[2020-04-29 08:00] VITALS: BP 88/54
[2020-04-29] MEDS: MULTIVITAMINS/MINERALS THERAP 1 TAB PO SCH (08:13)
[2020-04-29] MEDS: TAMSULOSIN 0.4 MG CAP PO SCH (08:13)
[2020-04-29] MEDS: FOLIC ACID 1 MG TAB PO SCH (08:13)
[2020-04-29] MEDS: ENOXAPARIN 40MG/0.4ML SYRINGE (J1650 PER 10MG) SC SCH (08:13)
[2020-04-29] MEDS: OMEGA-3 1000MG CAPSULE PO SCH ×2 (08:13→20:30)
[2020-04-29] MEDS: PANTOPRAZOLE 40MG TAB (PROTONIX) PO SCH (08:13)
[2020-04-29] MEDS: LORATADINE 10 MG TAB PO SCH (08:13)
[2020-04-29] MEDS: DOCUSATE SODIUM 100MG CAPSULE PO SCH ×2 (08:13→20:32)
[2020-04-29] MEDS: FERROUS GLUCONATE 324 MG TAB PO SCH (08:13)
[2020-04-29] MEDS: DIGOXIN 0.125 MG TAB PO SCH (08:14)
[2020-04-29] MEDS: POTASSIUM CHLORIDE 10 MEQ SR TABLET PO SCH ×2 (08:14→20:32)
[2020-04-29] MEDS: allopurinoL 100 MG TAB PO SCH (08:14)
[2020-04-29] MEDS: TORSEMIDE 20 MG TAB PO SCH ×2 (08:50→14:00)
[2020-04-29] MEDS ORDERED: TORSEMIDE 20 MG TAB PO ONE (09:00)
[2020-04-29 11:51] VITALS: BP 92/58
[2020-04-29] MEDS ORDERED: NORCO, ANEXSIA 5/325MG TABLET (HYDROcodone/ACETAMINOPHEN) PO ONE (12:15)
[2020-04-29 16:00] VITALS: BP 88/52
[2020-04-29] MEDS ORDERED: TORSEMIDE 10 MG TABLET PO ONE (17:00)
[2020-04-29 20:00] VITALS: BP 86/48
[2020-04-29] MEDS: SIMVASTATIN 10 MG TAB PO SCH (20:30)
[2020-04-29] MEDS: ACETAMINOPHEN 500 MG TAB PO PRN (20:31)
[2020-04-29] MEDS: PRIMIDONE 50 MG TAB PO SCH (20:32)
[2020-04-29] MEDS: CALCIUM/VITAMIN D 500 MG TAB PO SCH (20:32)
--- NOTE | 2020-04-29 20:47 | IPNPDOC ---
Text Note Date of Service The patient was seen on 04/29/20. NOTE Subjective Patient was seen and examined this morning at bedside. Tells me he still has some mild to moderate LE and chronic lower back pain and would like to try a higher dose of Tylenol. Understands plan for obtaining IVC filter tomorrow. Nurse tells me there were no overnight events. Objective General: NAD, comfortable HEENT: PERRLA, EOMI, sclerae clear Neck: supple, normal ROM, no JVD Respiratory: lungs CTA bilaterally, no wheeze, no crackles CVS: RRR, normal S1, S2 Abdo: soft, no masses, BS+, no rebound tenderness Extremities: no edema, pulses 2+ MSK: Pulses intact, 2+ bilaterally. No cyanosis. L>R LE swelling. Wearing compression stockings. There is no erythema, weeping. Left foot dorsal surface showing 2 areas of dry skin/possible old ulceration. Neuro: no focal neuro deficits Psych: calm, cooperative, AAO x 3 IMAGING: Bilateral Venous Duplex (04/28/20): The deep veins are anechoic and fully compressible from the groin to the popliteal fossa in the right lower extremity. Color flow imaging is homogeneous. Spectral Doppler interrogation demonstrates intact respiratory variation in flow and normal manual augmentation of flow. There is no evidence of deep vein thrombosis. On the left however there is a focal echogenic intraluminal stray logan in the left femoral vein proximal thigh consistent with deep vein thrombosis. The vein is not occluded and the echogenicity of the structure suggests the possibility of a chronic DVT finding. Left lower extremity scanning shows otherwise anechoic fully compressible deep veins without Doppler abnormality. There is a linear echogenic structure in the lumen of the left femoral vein consistent with left deep venous thrombosis, possibly chronic. Otherwise negative. No evidence of DVT on the right. CXR (04/28/20): IMPRESSION: Diffuse interstitial fibrosis pattern again seen. No acute infiltrate. Atrial appendage closure device noted. No acute changes. Assessment/Plan 84 yo M with a hx of DM2, chronic afib, HFpEF, COPD, CKD, and recurrent GI bleeds (most recently rectal varices in 07/2019), sent to ER by his PCP Dr. Bernardo for evaluation of bilateral LE swelling. Diagnosed with DVT in E, chronic appearing. Admitted to [facility], planned for possible IVC filter, as not a candidate for skilled nursing anticoagulation. #Left lower extremity chronic DVT: appears chronic per radiology read on venous duplex. Hx of frequent DVTs, PEs. Not a candidate for skilled nursing AC given hx of frequent GI bleeds. D/w Dr. Carr, IR consult placed for IVC filter. Planned for 04/30/20. Discussed need for interval AC. Decision to hold AC give chronic appearance of DVT and palpable pulses. #History of GI bleeds: last EGD and colonoscopy 07/2019. Gastritis. Rectal varices. Discussed with Dr. Starks. If significant DVT with absent pulses ok to AC with lovenox or heparin ggt, prior to IVC, otherwise ok to hold AC prior to IVC filter. #DM2: Insulin sliding scale. Resume home lantus 42 units SC daily. FSBS AC and HS. Consistent carbohydrate diet. Hypoglycemic precautions. Check a1c. Check lipids. Podiatry and ophtalmology as outpatient. #Atrial fibrillation: Not on anticoagulation, given recurrent bleeding, continue digoxin. Tele. Check digoxin level. #Chronic HFpEF: monitor volume status. BNP 6000. Not in acute respiratory distress. Continue torsemide, takes 40 mg qam, 20 mg qpm. #COPD: Continue home regimen. Duonebs prn. #Hypothyroid: continue levothyroxine 125 mcg daily #REBEKAH: Continue CPAP #Gout: allopurinol #GI Prophylaxis: Protonix DVT prophylaxis: Lovenox 40 mg subcutaneous Dispo: Admission expected to last more than 2 midnights. Planned for an IVC filter on 04/[address] Carr. VS,Tish, I+O VS, Tish, I+O Laboratory Tests 04/29/20 05:27 Vital Signs Date Time Temp Pulse Resp B/P (MAP) Pulse Ox O2 Delivery O2 Flow Rate FiO2 04/29/20 20:00 97.2 90 18 86/48 (61) 96 Room Air I&O- Last 24 Hours up to 6 AM 04/29/20 05:59 Intake Total 300 ml Output Total 1100 ml Balance -800 ml JOSE HAYDEN MD Apr 29, 2020 20:47
[2020-04-30] VITALS (7 sets, daily range): BP systolic 88–105; BP diastolic 52–61
[2020-04-30] MEDS: ACETAMINOPHEN 500 MG TAB PO PRN ×2 (03:33→21:06)
[2020-04-30] MEDS: RAMELTEON 8 MG TAB (ROZEREM) PO SCH ×2 (03:53→21:01)
[2020-04-30 05:20] LABS: BASO # 0.1 10^3/uL (0.0-0.2); BASO % 0.9 % (0.0-1.0); EOS # 0.3 10^3/uL (0.0-0.5); EOS % 3.1 % (0.0-3.0); HEMATOCRIT 28.1 % (42.0-52.0); HEMOGLOBIN 9.3 g/dl (13.5-17.5); LYMPH # 1.7 10^3/uL (1.5-5.0); LYMPH % 20.8 % (24.0-44.0); MEAN CORPUSCULAR HEMOGLOBIN 32.5 pg (27.0-33.0); MEAN CORPUSCULAR HGB CONC 33.1 g/dl (32.0-36.5); MEAN CORPUSCULAR VOLUME 98.3 fl (80.0-96.0); MONO # 0.7 10^3/uL (0.0-0.8); MONO % 8.1 % (0.0-5.0); NEUTROPHILS # 5.3 10^3/uL (1.5-8.5); NEUTROPHILS % 66.2 % (36.0-66.0); PLATELET COUNT, AUTOMATED 165 10^3/uL (150-450); RED BLOOD COUNT 2.86 10^6/uL (4.30-6.10)
[2020-04-30 05:44] LABS: ALBUMIN 2.4 GM/DL (3.2-5.2); BILIRUBIN,TOTAL 0.6 MG/DL (0.2-1.0); CALCIUM LEVEL 8.2 MG/DL (8.8-10.2); CREATININE FOR GFR 1.48 MG/DL (0.70-1.30); GLOMERULAR FILTRATION RATE 48.1 (>35); MAGNESIUM LEVEL 2.5 MG/DL (1.8-2.4); POTASSIUM SERUM 4.9 MEQ/L (3.5-5.1); TOTAL PROTEIN 6.6 GM/DL (6.4-8.2)
[2020-04-30] MEDS: LEVOTHYROXINE 125MCG TABLET (0.125MG) PO SCH (06:18)
[2020-04-30] MEDS: HumaLOG INSULIN (NovoLOG) PER UNIT SC SCH ×4 (07:30→21:00)
[2020-04-30] MEDS: LEVEMIR (INSULIN DETEMIR) 1 UNITS/0.01ML SC SCH (07:45)
[2020-04-30] MEDS: ENOXAPARIN 40MG/0.4ML SYRINGE (J1650 PER 10MG) SC SCH (07:45)
[2020-04-30] MEDS ORDERED: LEVEMIR (INSULIN DETEMIR) 1 UNITS/0.01ML SC ONE (08:00)
[2020-04-30] MEDS: PANTOPRAZOLE 40MG TAB (PROTONIX) PO SCH (08:10)
[2020-04-30] MEDS: TAMSULOSIN 0.4 MG CAP PO SCH (08:10)
[2020-04-30] MEDS: allopurinoL 100 MG TAB PO SCH (08:10)
[2020-04-30] MEDS: FERROUS GLUCONATE 324 MG TAB PO SCH (08:10)
[2020-04-30] MEDS: OMEGA-3 1000MG CAPSULE PO SCH ×2 (08:10→21:01)
[2020-04-30] MEDS: LORATADINE 10 MG TAB PO SCH (08:10)
[2020-04-30] MEDS: DOCUSATE SODIUM 100MG CAPSULE PO SCH ×2 (08:10→21:01)
[2020-04-30] MEDS: DIGOXIN 0.125 MG TAB PO SCH (08:11)
[2020-04-30] MEDS: MULTIVITAMINS/MINERALS THERAP 1 TAB PO SCH (08:11)
[2020-04-30] MEDS: FOLIC ACID 1 MG TAB PO SCH (08:11)
[2020-04-30] MEDS: POTASSIUM CHLORIDE 10 MEQ SR TABLET PO SCH ×2 (08:12→21:01)
[2020-04-30] MEDS: TORSEMIDE 20 MG TAB PO SCH ×2 (08:14→15:40)
[2020-04-30] MEDS ORDERED: SLF 3 ML SYR IV PRN (12:00)
--- NOTE | 2020-04-30 12:30 | IPNPDOC ---
Text Note Date of Service The patient was seen on 04/30/20. NOTE Subjective Patient was seen and examined this morning at bedside. Increased tylenol dose has helped him lower back pain and his LE pain has resolved. Feeling better. LE swelling gone down a lot since yesterday. Understands plan for obtaining IVC filter today. Nurse tells me there were no overnight events. Objective General: NAD, comfortable HEENT: PERRLA, EOMI, sclerae clear Neck: supple, normal ROM, no JVD Respiratory: lungs CTA bilaterally, no wheeze, no crackles CVS: RRR, normal S1, S2 Abdo: soft, no masses, BS+, no rebound tenderness Extremities: no edema, pulses 2+ MSK: Pulses intact, 1+ bilaterally, improved from yesterday. No cyanosis. L>R LE swelling not as obvious as yesterday. There is no erythema, weeping. Left foot dorsal surface showing 2 areas of dry skin/possible old ulceration. Neuro: no focal neuro deficits Psych: calm, cooperative, AAO x 3 IMAGING: Bilateral Venous Duplex (04/28/20): The deep veins are anechoic and fully compressible from the groin to the popliteal fossa in the right lower extremity. Color flow imaging is homogeneous. Spectral Doppler interrogation demonstrates intact respiratory variation in flow and normal manual augmentation of flow. There is no evidence of deep vein thrombosis. On the left however there is a focal echogenic intraluminal stray logan in the left femoral vein proximal thigh consistent with deep vein thrombosis. The vein is not occluded and the echogenicity of the structure suggests the possibility of a chronic DVT finding. Left lower extremity scanning shows otherwise anechoic fully compressible deep veins without Doppler abnormality. There is a linear echogenic structure in the lumen of the left femoral vein consistent with left deep venous thrombosis, possibly chronic. Otherwise negative. No evidence of DVT on the right. CXR (04/28/20): IMPRESSION: Diffuse interstitial fibrosis pattern again seen. No acute infiltrate. Atrial appendage closure device noted. No acute changes. Assessment/Plan 84 yo M with a hx of DM2, chronic afib, HFpEF, COPD, CKD, and recurrent GI ble eds (most recently rectal varices in 07/2019), sent to ER by his PCP Dr. Bernardo for evaluation of bilateral LE swelling. Diagnosed with DVT in LLE, chronic appearing.Not a candidate for retirement anticoagulation given history of significant GI bleeding. IIVC filter 04/30/2020. #Left lower extremity chronic DVT: appears chronic per radiology read on venous duplex. Hx of frequent DVTs, PEs. Not a candidate for retirement AC given hx of frequent GI bleeds. D/w Dr. Carr, IR consult placed for IVC filter. Planned for 04/30/20. Discussed need for interval AC. Decision to hold AC give chronic appearance of DVT and palpable pulses. #History of GI bleeds: last EGD and colonoscopy 07/2019. Gastritis. Rectal varices. Discussed with Dr. Starks. If significant DVT with absent pulses ok to AC with lovenox or heparin ggt, prior to IVC, otherwise ok to hold AC prior to IVC filter. #DM2: ISS. Home lantus 42 units SC daily reduced to 35. FSBS AC and HS. Consistent carbohydrate diet. Hypoglycemic precautions. a1c 5.7%. #Atrial fibrillation: Not on anticoagulation, given recurrent bleeding, continue digoxin. Tele. #Chronic HFpEF: monitor volume status, clinically compensated. BNP ~6000. Not in acute respiratory distress. Continue torsemide, takes 40 mg qam, 20 mg qpm. #COPD: Continue home regimen. Duonebs prn. #Hypothyroid: continue levothyroxine 125 mcg daily #REBEKAH: Continue CPAP #Gout: allopurinol #GI Prophylaxis: Protonix # DVT prophylaxis: Lovenox Dispo: Home after planned IVC filter on 04/[address] Carr[address] [facility] Tish CAMPUZANO, I+O Tish CAMPUZANO I+O Laboratory Tests 04/30/20 04:54 Vital Signs Date Time Temp Pulse Resp B/P (MAP) Pulse Ox O2 Delivery O2 Flow Rate FiO2 04/30/20 11:35 97.6 83 18 88/58 (68) 94 Room Air I&O- Last 24 Hours up to 6 AM 04/30/20 06:00 Intake Total 1480 ml Output Total 1150 ml Balance 330 ml FERNANDO HOUSE MD Apr 30, 2020 12:30
--- NOTE | 2020-04-30 13:51 | IRMSE ---
[facility] IR Moderate Sedation Eval. Date and Time Date: Apr 30, 2020 Time: 13:51 ASA Classification ASA Classification: III-Severe systemic dis. Mallampati Score: II NPO: Yes Obstructive Sleep Apnea: Yes Interval Plan: moderate sedation CHERYL DOAN MD Apr 30, 2020 13:51
[2020-04-30] MEDS: SLF 3 ML SYR IV SCH ×2 (14:00→21:02)
[2020-04-30] MEDS ORDERED: fentaNYL 100 MCG/2 ML INJECTION (J3010) As Ordered ONE (14:04)
[2020-04-30] MEDS ORDERED: MIDAZOLAM INJ 2MG/2ML VIAL (J2250 PER 1MG) As Ordered ONE (14:04)
[2020-04-30] MEDS ORDERED: diphenhydrAMINE 50MG/ML VIAL (J1200) As Ordered ONE (14:04)
[2020-04-30] MEDS ORDERED: LIDOCAINE 1% MDV 20ML VIAL As Ordered ONE (14:05)
[2020-04-30] MEDS ORDERED: ISOVUE-300 61% 50ML VIAL As Ordered ONE (14:05)
[2020-04-30] MEDS: CALCIUM/VITAMIN D 500 MG TAB PO SCH (21:01)
[2020-04-30] MEDS: SIMVASTATIN 10 MG TAB PO SCH (21:01)
[2020-04-30] MEDS: PRIMIDONE 50 MG TAB PO SCH (21:01)
[2020-05-01] VITALS: BP 84/53
[2020-05-01 00:01] VITALS: BP 88/62
[2020-05-01] MEDS ORDERED: traMADol 50 MG TAB PO ONE (01:00)
[2020-05-01 02:16] VITALS: BP 92/64
[2020-05-01 04:00] VITALS: BP 90/64
[2020-05-01 05:11] LABS: BASO # 0.1 10^3/uL (0.0-0.2); BASO % 0.8 % (0.0-1.0); EOS # 0.2 10^3/uL (0.0-0.5); EOS % 3.1 % (0.0-3.0); HEMATOCRIT 28.4 % (42.0-52.0); HEMOGLOBIN 9.6 g/dl (13.5-17.5); LYMPH # 1.6 10^3/uL (1.5-5.0); LYMPH % 20.7 % (24.0-44.0); MEAN CORPUSCULAR HGB CONC 33.8 g/dl (32.0-36.5); MEAN CORPUSCULAR VOLUME 97.6 fl (80.0-96.0); MONO # 0.5 10^3/uL (0.0-0.8); MONO % 6.5 % (0.0-5.0); NEUTROPHILS # 5.2 10^3/uL (1.5-8.5); NEUTROPHILS % 68.1 % (36.0-66.0); PLATELET COUNT, AUTOMATED 161 10^3/uL (150-450); RED BLOOD COUNT 2.91 10^6/uL (4.30-6.10); WHITE BLOOD COUNT 7.7 10^3/uL (4.0-10.0)
[2020-05-01] MEDS: LEVOTHYROXINE 125MCG TABLET (0.125MG) PO SCH (05:27)
[2020-05-01] MEDS: SLF 3 ML SYR IV SCH (05:32)
[2020-05-01 05:42] LABS: ALBUMIN 2.6 GM/DL (3.2-5.2); BILIRUBIN,TOTAL 0.7 MG/DL (0.2-1.0); CALCIUM LEVEL 8.3 MG/DL (8.8-10.2); CREATININE FOR GFR 1.42 MG/DL (0.70-1.30); GLOMERULAR FILTRATION RATE 50.4 (>35); MAGNESIUM LEVEL 2.4 MG/DL (1.8-2.4); POTASSIUM SERUM 4.2 MEQ/L (3.5-5.1); TOTAL PROTEIN 6.5 GM/DL (6.4-8.2)
[2020-05-01 08:00] VITALS: BP 106/54
[2020-05-01] MEDS ORDERED: LEVEMIR (INSULIN DETEMIR) 1 UNITS/0.01ML SC ONE (08:15)
[2020-05-01] MEDS: OMEGA-3 1000MG CAPSULE PO SCH (08:37)
[2020-05-01] MEDS: HumaLOG INSULIN (NovoLOG) PER UNIT SC SCH ×2 (08:37→11:47)
[2020-05-01] MEDS: FERROUS GLUCONATE 324 MG TAB PO SCH (08:37)
[2020-05-01] MEDS: allopurinoL 100 MG TAB PO SCH (08:37)
[2020-05-01] MEDS: PANTOPRAZOLE 40MG TAB (PROTONIX) PO SCH (08:38)
[2020-05-01] MEDS: MULTIVITAMINS/MINERALS THERAP 1 TAB PO SCH (08:38)
[2020-05-01] MEDS: FOLIC ACID 1 MG TAB PO SCH (08:38)
[2020-05-01] MEDS: LORATADINE 10 MG TAB PO SCH (08:38)
[2020-05-01] MEDS: DIGOXIN 0.125 MG TAB PO SCH (08:38)
[2020-05-01] MEDS: TAMSULOSIN 0.4 MG CAP PO SCH (08:39)
[2020-05-01] MEDS: DOCUSATE SODIUM 100MG CAPSULE PO SCH (08:39)
[2020-05-01] MEDS: TORSEMIDE 20 MG TAB PO SCH (08:40)
[2020-05-01] MEDS: ENOXAPARIN 40MG/0.4ML SYRINGE (J1650 PER 10MG) SC SCH (08:40)
[2020-05-01] MEDS: POTASSIUM CHLORIDE 10 MEQ SR TABLET PO SCH (08:40)
[2020-05-01] MEDS: ACETAMINOPHEN 500 MG TAB PO PRN (08:41)
[2020-05-01] MEDS ORDERED: LEVEMIR (INSULIN DETEMIR) 1 UNITS/0.01ML SC SCH (09:00)
--- NOTE | 2020-05-01 10:15 | DS.PDOC ---
Discharge Summary General Date of Admission Apr 28, 2020 at 17:33 Date of Discharge 05/01/2020 Discharge Summary PROCEDURES PERFORMED DURING STAY: [None]. ADMITTING DIAGNOSES: 1. Leg DVT DISCHARGE DIAGNOSES: 1. Left lower extremity chronic DVT COMPLICATIONS/CHIEF COMPLAINT: Leg swelling HISTORY OF PRESENT ILLNESS: from H&P: HOSPITAL COURSE: 84 yo M with a hx of DM2, chronic afib, HFpEF, COPD, CKD, and recurrent GI bleeds (most recently rectal varices in 07/2019), sent to ER by his PCP Dr. Bernardo for evaluation of bilateral LE swelling. Diagnosed with DVT in LLE, chronic appearing.Not a candidate for care home anticoagulation given history of significant GI bleeding. IVC filter 04/30/[address] Stockton. Time of discharge patient's lower extremity edema had resolved. #Left lower extremity chronic DVT: appears chronic per radiology read on venous duplex. Hx of frequent DVTs, PEs. 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 D/w Dr. Carr, IR placed IVC filter 04/30/20. Discussed with GI/IR need for interval AC. Decision to hold AC give chronic appearance of DVT and palpable pulses. #History of GI bleeds: last EGD and colonoscopy 07/2019. Gastritis. Rectal varices. Discussed with Dr. Starks. #DM2: ISS. Home lantus 42 units SC daily reduced to 35. FSBS AC and HS. Consistent carbohydrate diet. Hypoglycemic precautions. a1c 5.7%. #Atrial fibrillation: Not on anticoagulation, given recurrent bleeding, continue digoxin. Tele. #Chronic HFpEF: monitor volume status, clinically compensated. BNP ~6000. Not in acute respiratory distress. Continue torsemide, takes 40 mg qam, 20 mg qpm. #COPD: Continue home regimen. Duonebs prn. #Hypothyroid: continue levothyroxine 125 mcg daily #REBEKAH: Continue CPAP #Gout: allopurinol #GI Prophylaxis: Protonix DISCHARGE MEDICATIONS: Please see below. ALLERGIES: Please see below. PHYSICAL EXAMINATION ON DISCHARGE: General: NAD, comfortable HEENT: PERRLA, EOMI, sclerae clear Neck: supple, normal ROM, no JVD Respiratory: lungs CTA bilaterally, no wheeze, no crackles CVS: RRR, normal S1, S2 Abdo: soft, no masses, BS+, no rebound tenderness Extremities: no edema, pulses 2+ MSK: Pulses intact, no LE edema. No cyanosis. There is no erythema, weeping. Left foot dorsal surface showing 2 areas of dry skin/possible old ulceration. Neuro: no focal neuro deficits Psych: calm, cooperative, AAO x 3 LABORATORY DATA: Please see below. IMAGING: Bilateral Venous Duplex (04/28/20): The deep veins are anechoic and fully compressible from the groin to the popliteal fossa in the right lower extremity. Color flow imaging is homogeneous. Spectral Doppler interrogation demonstrates intact respiratory variation in flow and normal manual augmentation of flow. There is no evidence of deep vein thrombosis. On the left however there is a focal echogenic intraluminal stray logan in the left femoral vein proximal thigh consistent with deep vein thrombosis. The vein is not occluded and the echogenicity of the structure suggests the possibility of a chronic DVT finding. Left lower extremity scanning shows otherwise anechoic fully compressible deep veins without Doppler abnormality. There is a linear echogenic structure in the lumen of the left femoral vein consistent with left deep venous thrombosis, possibly chronic. Otherwise negative. No evidence of DVT on the right. CXR (04/28/20): IMPRESSION: Diffuse interstitial fibrosis pattern again seen. No acute infiltrate. Atrial appendage closure device noted. No acute changes. PROGNOSIS: fair ACTIVITY: [As tolerated]. DIET: 2g sodium diet, diabetic diet DISPOSITION: [facility] assisted [facility] DISCHARGE INSTRUCTIONS: Please follow up with your primary care physician within 1 week from discharge. If you do not have one, please follow up with us to schedule an appointment. Please keep all of your follow up appointments. Please call central to book your appointments with hospital specialists. Please take all your medications as prescribed. Please call/come to Clinic or go to the Emergency Department if - Temp >101, intractable Nausea/Vomiting, Diarrhea, Mouth sores, Headaches, Altered mental status, Seizures, sudden onset of swelling, bleeding, shortness of breath or chest pain. DISCHARGE CONDITION: [Stable]. TIME SPENT ON DISCHARGE: Greater than 35 minutes. Vital Signs/I&Os Vital Signs Date Time Temp Pulse Resp B/P (MAP) Pulse Ox O2 Delivery O2 Flow Rate FiO2 05/01/20 08:38 87 05/01/20 08:00 97.7 20 106/54 (71) 94 Room Air 04/30/20 14:50 2 I&O- Last 24 Hours up to 6 AM 05/01/20 06:00 Intake Total 480 ml Output Total 2150 ml Balance -1670 ml Laboratory Data Labs 24H Laboratory Tests 2 04/30/20 11:33: Bedside Glucose (Misc Panel) 129H 04/30/20 16:31: Bedside Glucose (Misc Panel) 63L 04/30/20 17:26: Bedside Glucose (Misc Panel) 75L 04/30/20 20:05: Bedside Glucose (Misc Panel) 121H 05/01/20 04:33: Immature Granulocyte % (Auto) 0.8, Neutrophils (%) (Auto) 68.1H, Lymphocytes (%) (Auto) 20.7L, Monocytes (%) (Auto) 6.5H, Eosinophils (%) (Auto) 3.1H, Basophils (%) (Auto) 0.8, Neutrophils # (Auto) 5.2, Lymphocytes # (Auto) 1.6, Monocytes # (Auto) 0.5, Eosinophils # (Auto) 0.2, Basophils # (Auto) 0.1, Nucleated Red Blood Cells % (auto) 0.3H, Anion Gap 7L, Glomerular Filtration Rate 50.4, Calcium Level 8.3L, Magnesium Level 2.4, Total Bilirubin 0.7, Aspartate Amino Transf (AST/SGOT) 21, Alanine Aminotransferase (ALT/SGPT) 13, Alkaline Phosphatase 125H, Total Protein 6.5, Albumin 2.6L, Albumin/Globulin Ratio 0.7 CBC/BMP Laboratory Tests 05/01/20 04:33 FSBS Laboratory Tests Test 04/30/20 11:33 04/30/20 16:31 04/30/20 17:26 04/30/20 20:05 Range/Units Bedside Glucose (Misc Panel) 129 63 75 121 83-110 MG/DL Discharge Medications Scheduled Allopurinol (Allopurinol) 100 Mg Tab, 200 MG PO DAILY, (Reported) Calcium Carbonate/Vitamin D3 (Oyster Shell 500-Vit D3 200 Tb) 1 Each Tablet, 2 TAB PO QHS, (Reported) Digoxin (Digoxin) 125 Mcg Tab, 125 MCG PO DAILY, (Reported) Docusate Sodium (Docusate Sodium) 100 Mg Capsule, 200 MG PO BID, (Reported) Ferrous Gluconate (Ferrous Gluconate) 324 Mg Tab, 648 MG PO DAILY, (Reported) Folic Acid (Folic Acid) 1 Mg Tab, 1 MG PO DAILY, (Reported) Insulin Glargine,Hum.rec.anlog (Lantus Solostar) 100 Unit/1 Ml Insuln.pen, 42 UNITS SC QAM, (Reported) Levothyroxine Sodium (Levothyroxine Sodium) 125 Mcg Tab, 125 MCG PO QAM, (Repo rted) Loratadine (Loratadine) 10 Mg Tablet, 10 MG PO DAILY, (Reported) Lovastatin (Lovastatin) 10 Mg Tab, 10 MG PO QHS, (Reported) Lubiprostone (Amitiza) 24 Mcg Capsule, 24 MCG PO BID, (Reported) Multivitamins (Thera M Plus Tablet) 1 Each Tablet, 1 TAB PO DAILY, (Reported) [place]annah-3/Dha/Epa/Fish Oil (Fish Oil EC 1,000 mg Softgel) 1 Cap Cap, 1 CAP PO BID, (Reported) Omeprazole (Omeprazole) 40 Mg Capsule.dr, 40 MG PO DAILY, (Reported) Potassium Chloride (Potassium Chloride) 20 Meq Tab.er.prt, 20 MEQ PO BID, (Reported) Primidone (Primidone) 50 Mg Tablet, 100 MG PO QHS, (Reported) Sennosides (Senna) 8.6 Mg Tablet, 2 TAB PO DAILY, (Reported) Tamsulosin HCl (Flomax) 0.4 Mg Capsule, 0.4 MG PO DAILY, (Reported) Torsemide (Torsemide) 20 Mg Tablet, 40 MG PO QAM, (Reported) Torsemide (Torsemide) 20 Mg Tablet, 20 MG PO DAILY, (Reported) AT 1400 Scheduled PRN Acetaminophen (Acetaminophen) 325 Mg Tablet, 650 MG PO Q4H PRN for PAIN / FEVER, (Reported) Acetaminophen with Codeine (Acetaminophen-Cod #3 Tablet) 1 Each Tablet, 1 TAB PO Q6H PRN for PAIN, (Reported) Magnesium Hydroxide (Milk of Magnesia) 400 Mg/5 Ml Oral.susp, 60 ML PO DAILY PRN for CONSTIPATION, (Reported) Melatonin (Melatonin) 10 Mg Tablet, 10 MG PO QHS PRN for SLEEP, (Reported) Nitroglycerin (Nitrostat) 0.4 Mg Subl, 0.4 MG SL NITRO PRN for CHEST PAIN, (Reported) Polyethylene Glycol 3350 (Miralax) 17 Gm Powd.pack, 17 GM PO DAILY PRN for CONSTIPATION, (Reported) Sennosides (Senna) 8.6 Mg Tablet, 1 TAB PO QHS PRN for CONSTIPATION, (Reported) Allergies Coded Allergies: Beta-Blockers (Beta-Adrenergic Bloc (Verified Allergy, Unknown, 05/09/19) spironolactone (Verified Allergy, Unknown, 05/09/19) warfarin (Verified Allergy, Unknown, 05/09/19) indomethacin (Verified Adverse Reaction, Intermediate, HALLUCINATIONS, 05/09/19) JOSE HAYDEN MD May 01, 2020 10:15
[2020-05-01] MEDS ORDERED: LANTINJ4 SC (10:20)
--- NOTE | 2020-05-02 10:36 | POST-OPPD ---
Postoperative Procedure Note Date Of Procedure: Apr 30, 2020 Time Of Procedure: 16:00 IR IVC Filter Placement. Inferior vena cavogram. Ultrasound of the right groin. Clinical Information:Symptomatic left lower extremity DVT. Multiple prior life- threatening PEs. Patient cannot be anticoagulated due to bleeding rectal varices requiring transfusions. Physician: Dr. Stockton. Procedure: The patient was advised of the benefits, risks, and alternatives of the procedure and informed consent was obtained. A time out was performed with verification of the patient's name, MRN, site of procedure, and type of procedure to be performed. The patient was positioned in the supine position on the angiographic table. The site was prepped and draped in the usual sterile fashion. Moderate sedation was performed by the physician including the presence of an independent trained RN who assisted in monitoring the patient's level of consciousness and physiological status. Following the administration of fentanyl and Versed, the physician spent 45 minutes of continuous [id number] time with the patient. Preliminary ultrasound of the right groin was performed, demonstrating the right common femoral vein is patent and compressible. The right common femoral vein was accessed under ultrasound guidance, using a micropuncture kit. An 0.035 wire was placed into the inferior vena cava, the tract was dilated and the filter sheath was advanced over the wire, under flu oroscopy guidance, into the right common iliac vein. An inferior venacavogram was then performed, demonstrating a normal caliber inferior vena cava without filling defects and the renal vein inflows at the L2 level. No caval anomalies were identified. This sheath was then advanced over the wire into the central inferior vena cava. A Cook select inferior vena cava filter was then advanced through the sheath and positioned within the infra-renal inferior vena cava. The filter was then deployed in the usual fashion. Positioning was confirmed fluoroscopically. The sheath was then removed and hemostasis obtained with manual compression. The patient tolerated the procedure well and was returned to the PRU in stable condition. EBL: < 5 mL. Complications:None. Conclusions: 1. Normal cavogram. 2. Successful deployment of a Cook select filter in the infrarenal IVC. Patient to follow-up in IR clinic in 6 months to discuss filter retrieval. 3. Follow-up in IR clinic in 6 months. Thank you for this referral. CHERYL STOCKTON MD May 02, 2020 10:36
== END 2020-05-01 13:26 | disposition home health service (06) | DRG 300 ==
LOC: M ED 13:14 → EDBD 13:14 → M ED INP 17:33 → M MSPAV 20:46 → M PCU 22:26
PROVIDERS: ADMIT Family Medicine; ATTEND Family Medicine
PROC: 06H03DZ Insertion of Intraluminal Device into Inferior Vena Cava, Percutaneous Approach (ICD-10-PCS; principal; 2020-04-30 15:30)
DX: I82.512 Chronic embolism and thrombosis of left femoral vein (principal); I50.32 Chronic diastolic (congestive) heart failure; I48.20 Chronic atrial fibrillation, unspecified; E11.22 Type 2 diabetes mellitus with diabetic chronic kidney disease; I35.1 Nonrheumatic aortic (valve) insufficiency; J44.9 Chronic obstructive pulmonary disease, unspecified; G47.33 Obstructive sleep apnea (adult) (pediatric); N18.9 Chronic kidney disease, unspecified; M10.9 Gout, unspecified; Z66 Do not resuscitate; I86.8 Varicose veins of other specified sites; E03.9 Hypothyroidism, unspecified; Z79.4 Long term (current) use of insulin; Z79.899 Other long term (current) drug therapy; Z87.891 Personal history of nicotine dependence; Z88.8 Allergy status to other drugs, medicaments and biological substances; Z20.828 Contact with and (suspected) exposure to other viral communicable diseases

== ENCOUNTER 2020-05-04 13:18 | Emergency (ER) | payer MEDICARE, MEDICAID ==
[~2020-05-04] VITALS: Ht 188 cm; Wt 89.1 kg
[~2020-05-04 13:18] MED LIST changes: +PRIM50TA6 PO
[2020-05-04 14:07] LABS: BASO # 0.1 10^3/uL (0.0-0.2); BASO % 0.5 % (0.0-1.0); EOS # 0.2 10^3/uL (0.0-0.5); EOS % 2.3 % (0.0-3.0); HEMATOCRIT 29.9 % (42.0-52.0); HEMOGLOBIN 9.5 g/dl (13.5-17.5); LYMPH # 1.8 10^3/uL (1.5-5.0); LYMPH % 16.9 % (24.0-44.0); MEAN CORPUSCULAR HEMOGLOBIN 31.6 pg (27.0-33.0); MEAN CORPUSCULAR HGB CONC 31.8 g/dl (32.0-36.5); MEAN CORPUSCULAR VOLUME 99.3 fl (80.0-96.0); MONO # 0.7 10^3/uL (0.0-0.8); MONO % 7.1 % (0.0-5.0); NEUTROPHILS # 7.5 10^3/uL (1.5-8.5); NEUTROPHILS % 72.5 % (36.0-66.0); PLATELET COUNT, AUTOMATED 150 10^3/uL (150-450); RED BLOOD COUNT 3.01 10^6/uL (4.30-6.10); WHITE BLOOD COUNT 10.4 10^3/uL (4.0-10.0)
[2020-05-04 14:20] LABS: INR 1.13; PROTHROMBIN TIME 14.8 SECONDS (12.5-14.3)
--- NOTE | 2020-05-04 14:33 | REP ---
INDICATION: CHEST PAIN. COMPARISON: Comparison chest x-ray April 28, 2020.. Comparison chest x-ray July 05, 2019 is also reviewed. TECHNIQUE: Portable sitting AP chest x-ray. Two views. FINDINGS: Monitoring electrodes are seen. There is diffuse interstitial fibrosis pattern again noted. Moderate cardiac enlargement is observed. Pulmonary vasculature is increased. On 1 of the two views obtained a lesser level of inspiration, there are increased markings in both bases. This is consistent with subsegmental atelectasis. No definite acute infiltrate. There is an intramedullary naomi in the left humerus. IMPRESSION: Diffuse interstitial fibrosis pattern. No definite acute infiltrate. Cardiomegaly. <Electronically signed by Jose Perkins > 05/04/20 [id number]
[2020-05-04 14:47] LABS: ALBUMIN 2.6 GM/DL (3.2-5.2); BILIRUBIN,DIRECT 0.2 MG/DL (0.0-0.2); BILIRUBIN,TOTAL 0.5 MG/DL (0.2-1.0); CALCIUM LEVEL 8.5 MG/DL (8.8-10.2); CK-MB VALUE MASS 1.5 NG/ML (<3.6); CREATININE FOR GFR 1.37 MG/DL (0.70-1.30); FREE T4 1.21 NG/DL (0.76-1.46); GLOMERULAR FILTRATION RATE 52.6 (>35); MB/CK RELATIVE INDEX 4.55 (< OR =4); POTASSIUM SERUM 4.1 MEQ/L (3.5-5.1); THYROID STIMULATING HORMONE 4.52 uIU/ML (0.358-3.740); TOTAL PROTEIN 7.1 GM/DL (6.4-8.2); TROPONIN I 0.03 NG/ML (< 0.10)
[2020-05-04] MEDS ORDERED: ISOVUE-370 76% 100ML VIAL As Ordered ONE (14:56)
--- NOTE | 2020-05-04 15:31 | REP ---
INDICATION: left sided chest pain. COMPARISON: Comparison CT angiography June 20, 2018.. TECHNIQUE: Contrast dose: 75 ML of Isovue [address] technique: Helical scanning is acquired and overlapping 1.5 mm and contiguous 3 mm axial images are reformatted. In addition, maximum intensity projection and multiplanar re-formation images are generated in sagittal and coronal imaging projections. FINDINGS: There is good opacification in the pulmonary arterial tree. There is no evidence of vessel cut off or filling defect to suggest pulmonary embolus. Homogeneous opacity is seen in the thoracic aorta. There is no evidence of aneurysm or dissection. Lung window settings demonstrate small bilateral pleural effusions. Cardiomegaly is observed. No pericardial effusion is seen. There is a diffuse interstitial pulmonary fibrosis pattern in the lung wilson. This is much less prominent than the interstitial infiltrate pattern noted on June 20, 2018. No definite focal infiltrate is seen today. The amount of right pleural fluid is increased compared to that prior study. No mass or adenopathy is seen. No pericardial effusion is observed. Vascular calcification is observed. Normal adrenal glands are seen. In the upper abdomen, small cyst is seen in the left kidney. The visualized upper abdominal structures are otherwise unremarkable. No bony destructive lesion is appreciated. There is an orthopedic device in the left humerus. IMPRESSION: No CT evidence of pulmonary embolus. Small bilateral pleural effusions and moderate cardiomegaly consistent with some degree of CHF. Diffuse interstitial fibrosis pattern in the lung wilson. No definite focal infiltrate. <Electronically signed by Jose Perkins > 05/04/20 [id number]
[2020-05-04 16:15] VITALS: O2SAT 97
[2020-05-04] MEDS ORDERED: FUROSEMIDE 40MG/4ML VIAL (J1940) IV ONE (16:15)
[2020-05-04] MEDS ORDERED: LANTINJ4 SC (18:02)
[2020-05-04] MEDS ORDERED: ENSU1LIQ36 PO (18:02)
--- NOTE | 2020-05-04 19:37 | ECGEPIP ---
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
[2020-05-04 20:00] LABS: CK-MB VALUE MASS 1.3 NG/ML (<3.6); MB/CK RELATIVE INDEX 4.06 (< OR =4); TROPONIN I 0.03 NG/ML (< 0.10)
[2020-05-04 20:23] VITALS: BP 102/68
--- NOTE | 2020-05-05 09:19 | ECGEPIP ---
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
--- NOTE | 2020-05-06 12:13 | ED PDOC ---
Post-Departure Follow-Up dr martinez faxed formal report of cta chest for fu Campbell Hawthorne MD May 06, 2020 12:13
== END 2020-05-04 21:03 | disposition home or self-care (01) ==
LOC: M ED 13:18 → EDBD 13:18 → M ED 21:03
DX: R07.9 Chest pain, unspecified (principal); I45.10 Unspecified right bundle-branch block; I50.9 Heart failure, unspecified; J44.9 Chronic obstructive pulmonary disease, unspecified; N18.9 Chronic kidney disease, unspecified; M10.9 Gout, unspecified; G47.33 Obstructive sleep apnea (adult) (pediatric); I48.91 Unspecified atrial fibrillation; Z79.899 Other long term (current) drug therapy; Z79.4 Long term (current) use of insulin; Z88.8 Allergy status to other drugs, medicaments and biological substances; Z87.891 Personal history of nicotine dependence
CPT/HCPCS: 71045; 71275; 80048; 80076; 82550; 82553; 83690; 84439; 84443; 84484; 85025; 85610; 85730; 93005; 93041; 94760; 96374; 99285; J1940; Q9967

== ENCOUNTER → 2020-05-14 | Outpatient (REF) | payer MEDICARE, MEDICAID ==
[~2020-05-14] MED LIST changes: +FURO40TA2 PO
[2020-05-14 15:46] LABS: INFLUENZA A AMPLIFICATION NEGATIVE (NEGATIVE); INFLUENZA B AMPLIFICATION NEGATIVE (NEGATIVE)
== END ==
PROVIDERS: ATTEND Internal Medicine
DX: Z20.828 Contact with and (suspected) exposure to other viral communicable diseases (principal)

== ENCOUNTER 2020-05-15 17:14 | Inpatient (IN) | payer MEDICARE, MEDICAID ==
[~2020-05-15] VITALS: Ht 188 cm; Wt 97.6 kg
[~2020-05-15 17:14] MED LIST changes: -FURO40TA2 PO
[2020-05-15 18:04] LABS: BASO # 0.1 10^3/uL (0.0-0.2); BASO % 0.5 % (0.0-1.0); EOS # 0.1 10^3/uL (0.0-0.5); EOS % 0.5 % (0.0-3.0); HEMATOCRIT 31.8 % (42.0-52.0); LYMPH # 1.4 10^3/uL (1.5-5.0); LYMPH % 15.2 % (24.0-44.0); MEAN CORPUSCULAR HEMOGLOBIN 31.6 pg (27.0-33.0); MEAN CORPUSCULAR HGB CONC 31.4 g/dl (32.0-36.5); MEAN CORPUSCULAR VOLUME 100.6 fl (80.0-96.0); MONO # 0.4 10^3/uL (0.0-0.8); MONO % 4.5 % (0.0-5.0); NEUTROPHILS # 7.3 10^3/uL (1.5-8.5); NEUTROPHILS % 78.6 % (36.0-66.0); PLATELET COUNT, AUTOMATED 172 10^3/uL (150-450); RED BLOOD COUNT 3.16 10^6/uL (4.30-6.10); WHITE BLOOD COUNT 9.4 10^3/uL (4.0-10.0)
[2020-05-15 18:14] LABS: INR 1.14; PARTIAL THROMBOPLASTIN TIME 33.5 SECONDS (24.2-38.5); PROTHROMBIN TIME 14.9 SECONDS (12.5-14.3)
--- NOTE | 2020-05-15 18:41 | REP ---
INDICATION: leg edema eval for CHF. COMPARISON: Comparison study May 04, 2020. TECHNIQUE: Two views.. FINDINGS: The lungs are better inflated today. Interstitial markings remain prominent in the bases left a little more so than right but a the lung wilson are much improved from the May 04, 2020 study. There is slight blunting of the right lateral pleural angle. Small focal areas of increased density remain in the perihilar regions bilaterally. No new infiltrate is seen. Heart size is borderline. IMPRESSION: Improved aeration and improved lung wilson bilaterally. Diffuse interstitial fibrosis pattern. Slight blunting of the right lateral pleural angle.. <Electronically signed by Jose Perkins > 05/15/20 [id number]
[2020-05-15 18:46] LABS: ALBUMIN 2.9 GM/DL (3.2-5.2); ALT/SGPT 19 U/L (12-78); BILIRUBIN,DIRECT 0.3 MG/DL (0.0-0.2); BILIRUBIN,TOTAL 0.9 MG/DL (0.2-1.0); BLOOD UREA NITROGEN 51 MG/DL (7-18); CALCIUM LEVEL 8.8 MG/DL (8.8-10.2); CARBON DIOXIDE LEVEL 24 MEQ/L (21-32); CHLORIDE LEVEL 103 MEQ/L (98-107); CK-MB VALUE MASS 1.9 NG/ML (<3.6); CPK CREATINE PHOSPHOKINASE 45 U/L (39-308); CREATININE FOR GFR 1.75 MG/DL (0.70-1.30); DIGOXIN LEVEL 1.1 NG/ML (0.5-2.0); FREE T4 1.28 NG/DL (0.76-1.46); GLOMERULAR FILTRATION RATE 39.6 (>35); GLUCOSE, FASTING 122 MG/DL (70-100); MB/CK RELATIVE INDEX 4.22 (< OR =4); NT-PRO BNP 8934 PG/ML (<450); POTASSIUM SERUM 4.6 MEQ/L (3.5-5.1); SODIUM LEVEL 135 MEQ/L (136-145); TOTAL PROTEIN 7.5 GM/DL (6.4-8.2); TROPONIN I 0.03 NG/ML (< 0.10)
--- NOTE | 2020-05-15 19:34 | REPVR ---
PROCEDURE INFORMATION: Exam: US Duplex Lower Extremity Veins, Bilateral Exam date and time: 05/15/2020 5:43 PM Age: 84 years old Clinical indication: Edema, localized; Lower extremity, bilateral; Additional info: Edema R/O dvt TECHNIQUE: Imaging protocol: Real-time duplex ultrasound of the extremities with 2-D banuelos scale, color Doppler flow and spectral waveform analysis with image documentation. Complete exam focused on the bilateral lower extremity veins. COMPARISON: US Duplex, Ext LOWER veins, bilat 04/28/2020 2:50 PM FINDINGS: Right deep veins: Unremarkable. The common femoral, femoral and popliteal veins are patent without thrombus. Normal Doppler waveforms. Normal compressibility and/or augmentation response. Right superficial veins: Saphenofemoral junction is patent without thrombus. Left deep veins: There is a persistent chronic-appearing nonocclusive thrombus present in the proximal left femoral vein, essentially unchanged since the previous Doppler ultrasound exam from 04/28/2020. The left common femoral, mid to distal femoral and popliteal veins are patent without thrombus. Normal Doppler waveforms. Normal compressibility and/or augmentation response. Left superficial veins: Saphenofemoral junction is patent without thrombus. Soft tissues: Unremarkable. IMPRESSION: 1. No evidence of deep vein thrombosis in the right lower extremity vessels. 2. There is a persistent chronic-appearing nonocclusive thrombus present in the proximal left femoral vein, essentially unchanged since the previous Doppler ultrasound exam from 04/28/2020. The left common femoral, mid to distal femoral and popliteal veins are patent without thrombus. Electronically signed by: Robert Soto On 05/15/2020 19:34:09 PM
[2020-05-15] MEDS ORDERED: NS 250 ML IV ONE (20:00)
[2020-05-15] MEDS ORDERED: MAALOX 30 ML SUSP *UDC PO PRN (20:00)
[2020-05-15] MEDS ORDERED: MOM 30ML SUSPENSION UDC PO PRN (20:00)
[2020-05-15] MEDS ORDERED: ACETAMINOPHEN TAB 650MG DOSE (2X325MG) PO PRN (20:00)
--- NOTE | 2020-05-15 20:07 | HPEPDOC ---
[facility] Medical History & Physical Date of Admission May 15, 2020 Date of Service: May 15, 2020 Primary Care Physician: ROLY PRIETO DO Attending Physician: SETH DSOUZA MD History and Physical TIME OF SERVICE: 10:15 PM CHIEF COMPLAINT: Lower extremity swelling HISTORY OF PRESENT ILLNESS: This 84-year-old gentleman reports coming to the hospital primarily because "my legs were swollen so bad I couldn't do anything". Per discussion with Dr. Garcia staff at the patient's senior living also noted that the patient had lower extremity swelling for about 1 week, was less active than usual, and that was lethargic. The patient denied having chest pain, shortness of breath or any other acute complaints beyond the lower extremity edema at the time of my visit. 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 He doesn't drink or use recreational drugs. He lives at a senior living FAMILY HISTORY: CHF ALLERGIES: Please see below. HOME MEDICATIONS: Please see below. PHYSICAL EXAMINATION: Vital Signs Date Time Temp Pulse Resp B/P (MAP) Pulse Ox O2 Delivery O2 Flow Rate FiO2 05/15/20 17:25 98.1 95 16 94/56 94 Room Air GEN: well-nourished / well developed/ NAD INTEGUMENT: not flushed/ not jaundice / has generalized pallor HEENT: lips acyanotic /mucus membranes dry / sclera anicteric/ CVS: RRR/NMRG/ no JVP / radial pulses intact / has marked lower extremity edema LUNGS: able to speak full sentences without stopping to take a breath / no coughing / lungs are clear to auscultation bilaterally on room air ABDOMEN: Contour (distended) / soft & not tender with palpation MSK/EXTREMITIES: NCAT / range of motion intact in all 4 extremities NEURO: speech is not dysarthric PSYCH: alert and oriented / able to understand and follow all commands LABORATORY DATA: 05/15/20 17:31 Immature Granulocyte % (Auto) 0.7, Neutrophils (%) (Auto) 78.6H, Lymphocytes (%) (Auto) 15.2L, Monocytes (%) (Auto) 4.5, Eosinophils (%) (Auto) 0.5, Basophils (%) (Auto) 0.5, Neutrophils # (Auto) 7.3, Lymphocytes # (Auto) 1.4L, Monocytes # (Auto) 0.4, Eosinophils # (Auto) 0.1, Basophils # (Auto) 0.1, Nucleated Red Blood Cells % (auto) 0.3H, Prothrombin Time 14.9H, Prothromb Time International Ratio 1.14, Activated Partial Thromboplast Time 33.5, Anion Gap 8, Glomerular Filtration Rate 39.6, Lactic Acid Level 2.1*H, Calcium Level 8.8, Total Bilirubin 0.9, Direct Bilirubin 0.3H, Aspartate Amino Transf (AST/SGOT) 35, Alanine Aminotransferase (ALT/SGPT) 19, Alkaline Phosphatase 159H, Total Creatine Kinase 45, Creatine Kinase MB 1.9, Creatine Kinase MB Relative Index 4.22H, Troponin I 0.03, OK-Qst-W-Type Natriuretic Peptide 8934H, Total Protein 7.5, Albumin 2.9L, Albumin/Globulin Ratio 0.6, Thyroid Stimulating Hormone (TSH) 7.990H, Free Thyroxine 1.28, Digoxin Level 1.1 IMAGING: Chest x-ray "IMPRESSION: Improved aeration and improved lung wilson bilaterally. Diffuse interstitial fibrosis pattern. Slight blunting of the right lateral pleural angle." Vascular ultrasound "IMPRESSION: 1. No evidence of deep vein thrombosis in the right lower extremity vessels. 2. There is a persistent chronic-appearing nonocclusive thrombus present in the proximal left femoral vein, essentially unchanged since the previous Doppler ultrasound exam from 04/28/2020. The left common femoral, mid to distal femoral and popliteal veins are patent without thrombus. " MICROBIOLOGY: 05/15/20 Blood Culture, Received Pending 05/15/20 Blood Culture, Received Pending ASSESSMENT: Mr. Fish is an 84-year-old with history of HFpEF, aortic stenosis, aortic sclerosis, atrial fibrillation with watchman device, DVTs and PEs, BPH, REBEKAH, IDDM, hypothyroidism, thoracic abdominal aneurysm, and impaired hearing , who presented with complaints of bilateral lower extremity swelling, likely due to acute HFpEF and was found to have ANTHONY, which is likely cardiorenal in nature and hypotension. PLAN: 1. Hypotension He is chronically hypotensive, but today's blood pressure slightly lower than usual I suspect the acut drop in his BP is due to diuretics Is unlikely that the hypotension is due to an inferior KS because the troponin is normal and the EKG showed A. fib He is asymptomatic. Plan: Admit to PCU / hold torsemide tonight & give trail of IVF (250 + 500ml bolus) / f/u Echo to r/o cardiogenic shock 2. Partially decompensated HFpEF The bilateral lower extremity swelling and, elevated BNP is likely due to fluid overload. The chest x-ray does not show pulmonary edema Plan: Follow-up I's and O's/daily weights/restrict salt to 2 L/will not restrict fluids because his blood pressure is low / pending improvement in the blood pressure, the daytime team a result torsemide 3. ANTHONY on CKD3 I suspect ANTHONY's cardiorenal due to congestion Plan: monitor UOP / f/u renal panel, Ulytes for FEUrea, phosphorus, PTH, SPEP / renal US / he will likely need diuresis in the morning once his MAP has improved 4. Macrocytic anemia. Plan: f/u iron studies, B12 & folate / c/w oral iron 5. Mild lactic acidosis Plan: f/u repeat lactic acid after IVF 6. Weakness Plan: PT 7. Atrial fibrillation He has watchman device placed, therefore, he is no longer not coagulation Plan: Digoxin 8. Gout Plan: Allopurinol 9. Hypothyroidism Plan: Levothyroxine 10 . IDDM Plan: diabetic diet / f/u accuchecks & A1C / hypoglycemia protocol / sliding scale insulin / his home dose is glargine 35 units in the morning /is of reduced renal clearance of insulin. Therefore, we will start levemir 10 units in the morning 11. REBEKAH Plan: CPAP 7 cm H2o 12. Thoracic abdominal aneurysm Plan: surveillance abdominal US per PCP 13. BPH Plan: c/w Brantley DVT PROPHYLAXIS: Heparin DISPOSITION: back to [place] after more than 2 midnight's stay / PFS consult has been placed Home Medications Scheduled Allopurinol (Allopurinol) 100 Mg Tab, 200 MG PO DAILY Calcium Carbonate/Vitamin D3 (Oyster Shell 500-Vit D3 200 Tb) 1 Each Tablet, 2 TAB PO QHS Digoxin (Digoxin) 125 Mcg Tab, 125 MCG PO DAILY Docusate Sodium (Docusate Sodium) 100 Mg Capsule, 200 MG PO BID Ferrous Gluconate (Ferrous Gluconate) 324 Mg Tab, 648 MG PO DAILY Folic Acid (Folic Acid) 1 Mg Tab, 1 MG PO DAILY Insulin Glargine,Hum.rec.anlog (Lantus Solostar) 100 Unit/1 Ml Insuln.pen, 35 UNITS SC QAM Lactose-Reduced Food (Ensure Enlive) 237 Ml Liquid, 120 ML PO TID 0800, 1200, 1700 Levothyroxine Sodium (Levothyroxine Sodium) 125 Mcg Tab, 125 MCG PO QAM Loratadine (Loratadine) 10 Mg Tablet, 10 MG PO DAILY Lovastatin (Lovastatin) 10 Mg Tab, 10 MG PO QHS Lubiprostone (Amitiza) 24 Mcg Capsule, 24 MCG PO BID Multivitamins (Thera M Plus Tablet) 1 Each Tablet, 1 TAB PO DAILY [place]-3/Dha/Epa/Fish Oil (Fish Oil EC 1,000 mg Softgel) 1 Cap Cap, 1,000 MG PO BID Omeprazole (Omeprazole) 40 Mg Capsule.dr, 40 MG PO DAILY Polyethylene Glycol 3350 (Miralax) 17 Gm Powd.pack, 17 GM PO DAILY Potassium Chloride (Potassium Chloride) 20 Meq Tab.er.prt, 20 MEQ PO BID Primidone (Primidone) 50 Mg Tablet, 100 MG PO QHS Sennosides (Senna) 8.6 Mg Tablet, 2 TAB PO DAILY Tamsulosin HCl (Flomax) 0.4 Mg Capsule, 0.4 MG PO DAILY Torsemide (Torsemide) 20 Mg Tablet, 40 MG PO QAM Torsemide (Torsemide) 20 Mg Tablet, 20 MG PO DAILY AT 1400 Scheduled PRN Acetaminophen (Acetaminophen) 325 Mg Tablet, 650 MG PO Q4H PRN for PAIN / FEVER Acetaminophen with Codeine (Acetaminophen-Cod #3 Tablet) 1 Each Tablet, 1 TAB PO Q6H PRN for PAIN Magnesium Hydroxide (Milk of Magnesia) 400 Mg/5 Ml Oral.susp, 60 ML PO DAILY PRN for CONSTIPATION Melatonin (Melatonin) 10 Mg Tablet, 10 MG PO QHS PRN for SLEEP Nitroglycerin (Nitrostat) 0.4 Mg Subl, 0.4 MG SL NITRO PRN for CHEST PAIN Sennosides (Senna) 8.6 Mg Tablet, 1 TAB PO QHS PRN for CONSTIPATION Allergies Coded Allergies: Beta-Blockers (Beta-Adrenergic Bloc (Verified Allergy, Unknown, 05/09/19) spironolactone (Verified Allergy, Unknown, 05/09/19) warfarin (Verified Allergy, Unknown, 05/09/19) indomethacin (Verified Adverse Reaction, Intermediate, HALLUCINATIONS, 05/09/19) A-FIB/CHADSVASC A-FIB History Current/History of A-Fib/PAF?: Yes Current PO Anticoag Therapy: No Treatment Reason Anticoagulant not given: Other Other reason anticoagulant not: has a watchman SETH Aquino MD May 15, 2020 20:07
[2020-05-15 20:44] LABS: APPEARANCE, URINE HAZY (CLEAR); BACTERIA, URINE AUTO 1+ (NEGATIVE); BILIRUBIN, URINE AUTO NEGATIVE (NEGATIVE); BLOOD, URINE BLOOD 2+ (NEGATIVE); COLOR, URINE YELLOW (YELLOW); GLUCOSE, URINE (UA) AUTO NEGATIVE (NEGATIVE); KETONE, URINE AUTO NEGATIVE (NEGATIVE); LEUKOCYTE ESTERASE, URINE AUTO 2+ (NEGATIVE); MUCUS, URINE SMALL (NEGATIVE); NITRITE, URINE AUTO NEGATIVE (NEGATIVE); PROTEIN, URINE AUTO NEGATIVE (NEGATIVE); RBC, URINE AUTO 6 /HPF (0-3); SPECIFIC GRAVITY URINE AUTO 1.011 (1.002-1.035); SQUAMOUS EPITHELIAL CELL UR AU 0 /HPF (0-6); UROBILINOGEN, URINE AUTO 0.2 mg/dL (0.0-2.0); WBC, URINE AUTO 33 /HPF (0-3)
[2020-05-15 20:46] LABS: FERRITIN 89 NG/ML (26-388); FOLATE > 24.0 NG/ML; IRON (FE) 63 UG/DL (65-175); PERCENT SATURATION 18.5 % (19.7-50.0); PHOSPHORUS LEVEL 3.5 MG/DL (2.5-4.9); PTH INTACT 145.2 PG/ML (18.5-88.0); TOTAL IRON BINDING CAPACITY 341 UG/DL (250-450); VITAMIN B12 LEVEL 1397 PG/ML
[2020-05-15 20:58] LABS: CREATININE,RANDOM URINE 54.7 MG/DL; SODIUM,RANDOM URINE < 10 MEQ/L; UREA NITROGEN RANDOM URINE 556 MG/DL
[2020-05-15 21:09] LABS: RSV AMPLIFICATION NEGATIVE (NEGATIVE)
[2020-05-15] MEDS: HEPARIN SOD (PORCINE) 5000UNITS/ML 1ML VIAL/SYRINGE SC SCH (22:14)
[2020-05-16] MEDS ORDERED: MOM 30ML SUSPENSION UDC PO PRN (01:15)
[2020-05-16] MEDS ORDERED: SENNA 8.6 MG TAB (SENOKOT) PO PRN (01:15)
[2020-05-16] MEDS ORDERED: NS 500 ML IV ONE (01:30)
[2020-05-16] MEDS: POTASSIUM CHLORIDE 10 MEQ SR TABLET PO SCH ×3 (01:49→21:46)
[2020-05-16] MEDS: DOCUSATE SODIUM 100MG CAPSULE PO SCH ×3 (01:50→21:46)
[2020-05-16] MEDS: OMEGA-3 1000MG CAPSULE PO SCH ×3 (02:25→21:46)
[2020-05-16] MEDS ORDERED: GLUCAGON INJ 1MG VIAL SC PRN (04:30)
[2020-05-16] MEDS ORDERED: DEXTROSE 50% 50 ML SYRINGE IV PRN (04:30)
[2020-05-16] MEDS ORDERED: GLUCOSE 4GM CHEW TABLET PO PRN (04:30)
[2020-05-16] MEDS: LEVOTHYROXINE 125MCG TABLET (0.125MG) PO SCH (06:11)
[2020-05-16] MEDS: HEPARIN SOD (PORCINE) 5000UNITS/ML 1ML VIAL/SYRINGE SC SCH ×3 (06:12→21:48)
--- NOTE | 2020-05-16 07:23 | ECGEPIP ---
[facility] - ED Test Date: 2020-05-15 Pat Name: TY MARIE Department: Room: [place] [address] Gender: Male White Kid Buffer: serafin : 1935 Requested By: GILMAR Rowe Order Number: [id number] Reading MD: Ryan Garcia Measurements Intervals [place] Rate: 87 P: NV: 0 QRS: 33 QRSD: 149 T: 0 QT: 411 QTc: 496 Interpretive Statements ATRIAL FIBRILLATION RIGHT BUNDLE BRANCH BLOCK Nonspecific ST-T wave abnormalities Similar to tracing done 05-04-20 Electronically Signed on 05-16-2020 7:23:11 EST by Ryan Garcia
[2020-05-16 08:04] LABS: TOTAL PROTEIN 7.5 GM/DL (6.4-8.2)
[2020-05-16] MEDS ORDERED: LEVEMIR (INSULIN DETEMIR) 1 UNITS/0.01ML SC SCH ×2 (09:00)
[2020-05-16] MEDS: HumaLOG INSULIN (NovoLOG) PER UNIT SC SCH ×4 (09:04→21:00)
--- NOTE | 2020-05-16 09:21 | REP ---
INDICATION: erasto. COMPARISON: None. TECHNIQUE: Urinary tract sonography. FINDINGS: Scanning at the level of the urinary bladder demonstrates Brantley catheter in place and a large hyperechoic intraluminal mass in the urinary bladder. Bladder wall is difficult to define. The mass could be a large thrombus.. Renal cortical echogenicity pattern is normal bilaterally and contours are smooth. There is no evidence of hydronephrosis on either side. There are 3 cysts identified the left kidney measuring 3.8 x 2.2 x 2.8, 2.6 x 2.8 x 2.1, and 1.7 x 1.8 x 1.5 cm respectively. No mass lesion is seen on either side.. The right kidney measures 9.0 x 4.5 x 4.3 cm. Left renal dimensions are 10.9 x 5.6 x 5.1 cm. IMPRESSION: Several cysts left kidney. Large echogenic structure within the lumen of the bladder, question thrombus versus mass. Brantley catheter. No hydronephrosis seen on either side.. <Electronically signed by Jose Perkins > 05/16/20 0948
[2020-05-16 09:43] LABS: HEMATOCRIT 31.2 % (42.0-52.0); HEMOGLOBIN 9.9 g/dl (13.5-17.5); MEAN CORPUSCULAR HEMOGLOBIN 31.6 pg (27.0-33.0); MEAN CORPUSCULAR HGB CONC 31.7 g/dl (32.0-36.5); MEAN CORPUSCULAR VOLUME 99.7 fl (80.0-96.0); PLATELET COUNT, AUTOMATED 161 10^3/uL (150-450); RED BLOOD COUNT 3.13 10^6/uL (4.30-6.10)
[2020-05-16] MEDS: FOLIC ACID 1 MG TAB PO SCH (09:46)
[2020-05-16] MEDS: TAMSULOSIN 0.4 MG CAP PO SCH (09:46)
[2020-05-16] MEDS: MULTIVITAMINS/MINERALS THERAP 1 TAB PO SCH (09:46)
[2020-05-16] MEDS: SENNA 8.6 MG TAB (SENOKOT) PO SCH (09:47)
[2020-05-16] MEDS: allopurinoL 100 MG TAB PO SCH (09:47)
[2020-05-16] MEDS: DIGOXIN 0.125 MG TAB PO SCH (09:47)
[2020-05-16] MEDS: LORATADINE 10 MG TAB PO SCH (09:47)
[2020-05-16 10:13] LABS: ALBUMIN 2.8 GM/DL (3.2-5.2); BILIRUBIN,TOTAL 0.8 MG/DL (0.2-1.0); CALCIUM LEVEL 8.2 MG/DL (8.8-10.2); CREATININE FOR GFR 1.61 MG/DL (0.70-1.30); GLOMERULAR FILTRATION RATE 43.6 (>35); MAGNESIUM LEVEL 2.5 MG/DL (1.8-2.4); POTASSIUM SERUM 4.4 MEQ/L (3.5-5.1); TOTAL PROTEIN 6.9 GM/DL (6.4-8.2)
[2020-05-16 11:19] LABS: ALBUMIN % 45.6 % (55.8-66.1); ALPHA-1-GLOBULIN % 7.6 % (2.9-4.9)
[2020-05-16 11:20] LABS: ALBUMIN 3.42 GM/DL (3.29-5.55); ALPHA-1-GLOBULINS 0.57 GM/DL (0.17-0.41); ALPHA-2-GLOBULINS 0.98 GM/DL (0.42-0.99); BETA-1-GLOBULINS 0.45 GM/DL (0.28-0.60); BETA-2-GLOBULINS 0.51 GM/DL (0.19-0.55); BETA-2-GLOBULINS % 6.8 % (3.2-6.5); GAMMA GLOBULINS 1.58 GM/DL (0.65-1.58)
[2020-05-16] MEDS: FERROUS GLUCONATE 324 MG TAB PO SCH (16:00)
[2020-05-16] MEDS: MIRALAX *UNIT DOSE* 17GM PACKET PO SCH (16:00)
[2020-05-16 17:30] VITALS: BP 99/63
--- NOTE | 2020-05-16 18:09 | IPNPDOC ---
Date Seen The patient was seen on 05/16/20. Progress Note SUBJECTIVE: Very hard of hearing but communicates well with yelling and paper. Has no acute complaints on exam, BP at baseline (chronically low). Denies chest pain, n/v/d, fevers, chills. OBJECTIVE: PHYSICAL EXAMINATION: VITAL SIGNS: Please see below. GEN: well-nourished / well developed/ NAD INTEGUMENT: not flushed/ not jaundice / has generalized pallor HEENT: lips acyanotic /mucus membranes dry / sclera anicteric/ CVS: RRR/NMRG/ no JVP / radial pulses intact / has marked lower extremity edema LUNGS: able to speak full sentences without stopping to take a breath / no coughing / lungs are clear to auscultation bilaterally on room air ABDOMEN: Contour (distended) / soft & not tender with palpation MSK/EXTREMITIES: NCAT / range of motion intact in all 4 extremities NEURO: speech is not dysarthric PSYCH: alert and oriented / able to understand and follow all commands LABORATORY DATA: See below. IMAGING: Chest x-ray : Improved aeration and improved lung wilson bilaterally. Diffuse interstitial fibrosis pattern. Slight blunting of the right lateral pleural angle." Vascular ultrasound: 1. No evidence of deep vein thrombosis in the right lower extremity vessels. 2. There is a persistent chronic-appearing nonocclusive thrombus present in the proximal left femoral vein, essentially unchanged since the previous Doppler ultrasound exam from 04/28/2020. The left common femoral, mid to distal femoral and popliteal veins are patent without thrombus. " Last Transesophageal echocardiogram 04/2019: 1. Satisfactory appearance of Watchman left atrial appendage closure device 45 days following procedure with no thrombus on the device and an insignificant gap along the lateral aspect between the lateral aspect of the Watchman device and the wall of the left atrial appendage. 2. Normal left ventricle size and systolic function. 3. Appearance of left atrial dilatation. 4. Moderate aortic valve sclerosis. Probably at least mild aortic stenosis by visual assessment. No aortic regurgitation. 5. Mild mitral annular calcification. Moderate mitral regurgitation. 6. Moderate tricuspid regurgitation. MICROBIOLOGY: Please see below. ASSESSMENT: Mr. Fish is an 84-year-old with history of HFpEF, aortic stenosis, aortic sclerosis, atrial fibrillation with watchman device, DVTs and PEs, BPH, REBEKAH, IDDM, hypothyroidism, thoracic abdominal aneurysm, and impaired hearing , who presented with complaints of bilateral lower extremity swelling, likely due to acute HFpEF and was found to have ANTHONY, which is likely cardiorenal in nature and hypotension. PLAN: Hypotension, acute on chronic -BL systolic 90-110's mmHg -Given several small boluses in ER with improvement -F/u echocardiogram -Currently AAOx3, good pulses and ext warm, perfusing well. -Holding diuretics Acute on chronic HFpEF with exacerbation -Incr lower ext swelling. -04/30/2020 BNP 6947 --> 8934 -Patient states to be compliant with meds -Trop neg -CXR: no pulmonary edema -Echocardiogram ordered -C/w close monitoring of I&O's, daily wts. Will see if tomorrow can resume low dose diuretics. IDDM / hypoglycemia -Hypoglycemia this AM with BS in 50's -Held daily levemir and ISS coverage -C/w consistent carb diet, accuchecks , hypoglycemia protocol, sliding scale insulin if warrants CKD Stage III -BL Cr 1.4-1.5 -Currently NOT Acute kidney injury -Monitor closely with daily labs UTI -F/u UCx, BCx -Ceftriaxone Macrocytic anemia -F/u iron studies, B12 & folate / c/w oral iron Weakness -PT/OT Atrial fibrillation watchman device placed, therefore, he is no longer not coagulation -Stable -Digoxin Gout -Allopurinol Hypothyroidism -Levothyroxine REBEKAH -CPAP 7 cm H2o Thoracic abdominal aneurysm -surveillance abdominal US per PCP BPH Plan: c/w Brantley DVT Px -Heparin Resolved issues: Mild lactic acidosis DISPOSITION: Currently in patient status. Plan is d/c back to [place] when medically appropriate. PFS consult has been placed VS[facility]/I&O Vital Signs Date Time Temp Pulse Resp B/P (MAP) Pulse Ox O2 Delivery O2 Flow Rate FiO2 05/16/20 17:07 97.0 05/16/20 17:01 95 18 106/57 (73) 100 Room Air I&O- Last 24 Hours up to 6 AM 05/16/20 06:00 Intake Total 750 ml Balance 750 ml Laboratory Data 24H LABS Laboratory Tests 2 05/15/20 20:16: Urine Color YELLOW, Urine Appearance HAZY, Urine pH 5.0, Urine Specific [place] 1.011, Urine Protein NEGATIVE, Urine Glucose (Auto)(UA) NEGATIVE, Urine Ketones (Auto) NEGATIVE, Urine Blood 2+H, Urine Nitrite NEGATIVE, Urine Bilirubin NEGAT RICCARDO, Urine Urobilinogen 0.2, Urine Leukocyte Esterase (Auto) 2+H, Urine WBC (Auto) 33H, Urine RBC (Auto) 6H, Urine Hyaline Casts (Auto) 0, Urine Bacteria (Auto) 1+H, Urine Squamous Epithelial Cells 0, Urine Mucus (Auto) SMALL, Urine Sperm (Auto) , Urine Random Creatinine 54.7, Urine Random Sodium < 10, Urine Random Urea Nitrogen 556, Coronavirus (COVID-19)(PCR) NEGATIVE, Influenza Type A (RT-PCR) NEGATIVE, Influenza Type B (RT-PCR) NEGATIVE, Respiratory Syncytial Virus (PCR) NEGATIVE 05/15/20 20:53: Lactic Acid Level 1.1 05/16/20 09:02: Bedside Glucose (Misc Panel) 51L 05/16/20 09:24: Nucleated Red Blood Cells % (auto) 0.4H, Anion Gap 9, Glomerular Filtration Rate 43.6, Calcium Level 8.2L, Magnesium Level 2.5H, Total Bilirubin 0.8, Aspartate Amino Transf (AST/SGOT) 27, Alanine Aminotransferase (ALT/SGPT) 16, Alkaline Phosphatase 144H, Total Protein 6.9, Albumin 2.8L, Albumin/Globulin Ratio 0.7 05/16/20 12:34: Bedside Glucose (Misc Panel) 101 05/16/20 15:58: Bedside Glucose (Misc Panel) 89 CBC/BMP Laboratory Tests 05/16/20 09:24 Microbiology Microbiology 05/15/20 Urine Culture, Received Pending 05/15/20 Blood Culture, Received Pending 05/15/20 Blood Culture, Received Pending Current Medications Current Medications Medications (Trade) Dose Ordered Sig/Wendy Route PRN Reason Start Time Stop Time Status Last Admin Dose Admin Acetaminophen (Tylenol Tab) 650 mg Q4H PRN PO PAIN OR FEVER 05/15/20 20:00 05/16/20 01:11 Acetaminophen (Tylenol Tab) 650 mg Q4H PRN PO MILD PAIN OR FEVER 05/16/20 01:15 Acetaminophen/ Codeine Phosphate (Tylenol/Codeine #3 Tablet) 1 ea Q6H PRN PO MODERATE/SEVERE PAIN (PS 5-10) 05/16/20 01:15 Al Hydrox/Mg Hydrox/Simethicone (Mylanta) 30 ml DAILY PRN PO DYSPEPSIA 05/15/20 20:00 Allopurinol (Zyloprim) 200 mg DAILY PO 05/16/20 09:00 05/16/20 09:47 Calcium/Vitamin D (Oscal D) 500 mg QHS PO 05/16/20 21:00 Dextrose (Dextrose 50%) 25 ml ASDIRECTED PRN IV SEE LABEL COMMENTS 05/16/20 04:30 Digoxin (Lanoxin) 0.125 mg DAILY PO 05/16/20 09:00 05/16/20 09:47 Docusate Sodium (Colace) 200 mg BID PO 05/15/20 21:00 05/16/20 09:47 Ferrous Gluconate (Fergon) 648 mg DAILY PO 05/16/20 09:00 05/16/20 16:00 Fish Oil ([place]-3 (1000mg)) 1 cap BID PO 05/15/20 21:00 05/16/20 16:00 Folic Acid (Folic Acid) 1 mg DAILY PO 05/16/20 09:00 05/16/20 09:46 Glucagon (Glucagon) 1 mg ASDIRECTED PRN SC SEE LABEL COMMENTS 05/16/20 04:30 Glucose (Glucose) 16 GM ASDIRECTED PRN PO SEE LABEL COMMENTS 05/16/20 04:30 Heparin Sodium (Porcine) (Heparin) 5,000 units Q8H SC 05/15/20 22:00 05/16/20 16:04 Home Med (Med Rec Complete!) ASDIRECTED XX 05/15/20 19:30 05/15/20 19:30 DC Insulin Detemir (Levemir Insulin) 10 units QAM SC 05/16/20 09:00 05/16/20 16:38 DC Insulin Detemir (Levemir Insulin) 35 units QAM SC 05/16/20 09:00 05/16/20 04:48 DC Insulin Human Lispro (HumaLOG INSULIN) See Protocol Table AC SC 05/16/20 07:30 Insulin Human Lispro (HumaLOG INSULIN) See Protocol Table QHS SC 05/16/20 21:00 Levothyroxine Sodium (Synthroid) 125 mcg DAILY@0600 PO 05/16/20 06:00 05/16/20 06:11 Loratadine (Claritin) 10 mg DAILY PO 05/16/20 09:00 05/16/20 09:47 Magnesium Hydroxide (Milk Of Magnesia) 30 ml DAILY PRN PO CONSTIPATION 05/15/20 20:00 Magnesium Hydroxide (Milk Of Magnesia) 60 ml DAILY PRN PO CONSTIPATION 05/16/20 01:15 Multivitamins (Theragram-M) 1 tab DAILY PO 05/16/20 09:00 05/16/20 09:46 Polyethylene Glycol (Miralax) 1 pkt DAILY PO 05/16/20 09:00 05/16/20 16:00 Potassium Chloride (Micro-K Extencaps) 20 meq BID PO 05/15/20 21:00 05/16/20 09:46 Primidone (Mysoline) 100 mg QHS PO 05/16/20 21:00 Senna (Senokot) 1 tab QHS PRN PO CONSTIPATION 05/16/20 01:15 Senna (Senokot) 2 tab DAILY PO 05/16/20 09:00 05/16/20 09:47 Simvastatin (Zocor) 10 mg QHS PO 05/16/20 21:00 Tamsulosin HCl (Flomax) 0.4 mg DAILY PO 05/16/20 09:00 05/16/20 09:46 Allergies Coded Allergies: Beta-Blockers (Beta-Adrenergic Bloc (Verified Allergy, Unknown, 05/09/19) spironolactone (Verified Allergy, Unknown, 05/09/19) warfarin (Verified Allergy, Unknown, 05/09/19) indomethacin (Verified Adverse Reaction, Intermediate, HALLUCINATIONS, 05/09/19) Nae Murrieta MD May 16, 2020 18:09
[2020-05-16] MEDS: cefTRIAXone SOD 1 GM in D5W MINI-BAG PLUS 50 ML IV SCH (18:28)
[2020-05-16] MEDS: CALCIUM/VITAMIN D 500 MG TAB PO SCH (21:46)
[2020-05-16] MEDS: SIMVASTATIN 10 MG TAB PO SCH (21:46)
[2020-05-16 22:00] VITALS: BP 98/63
[2020-05-16] MEDS: PRIMIDONE 50 MG TAB PO SCH (22:03)
[2020-05-17 02:22] VITALS: BP 110/70
[2020-05-17 06:09] LABS: HEMATOCRIT 29.5 % (42.0-52.0); HEMOGLOBIN 9.7 g/dl (13.5-17.5); MEAN CORPUSCULAR HEMOGLOBIN 32.7 pg (27.0-33.0); MEAN CORPUSCULAR HGB CONC 32.9 g/dl (32.0-36.5); MEAN CORPUSCULAR VOLUME 99.3 fl (80.0-96.0); PLATELET COUNT, AUTOMATED 158 10^3/uL (150-450); RED BLOOD COUNT 2.97 10^6/uL (4.30-6.10); WHITE BLOOD COUNT 9.1 10^3/uL (4.0-10.0)
[2020-05-17] MEDS: LEVOTHYROXINE 125MCG TABLET (0.125MG) PO SCH (06:19)
[2020-05-17] MEDS: HEPARIN SOD (PORCINE) 5000UNITS/ML 1ML VIAL/SYRINGE SC SCH ×3 (06:20→20:07)
[2020-05-17 06:31] LABS: ALBUMIN 2.6 GM/DL (3.2-5.2); BILIRUBIN,TOTAL 0.7 MG/DL (0.2-1.0); CALCIUM LEVEL 8.7 MG/DL (8.8-10.2); CREATININE FOR GFR 1.57 MG/DL (0.70-1.30); GLOMERULAR FILTRATION RATE 44.9 (>35); POTASSIUM SERUM 4.8 MEQ/L (3.5-5.1); TOTAL PROTEIN 6.5 GM/DL (6.4-8.2)
[2020-05-17 06:52] VITALS: BP 112/68
[2020-05-17] MEDS: MULTIVITAMINS/MINERALS THERAP 1 TAB PO SCH (09:54)
[2020-05-17] MEDS: FERROUS GLUCONATE 324 MG TAB PO SCH (09:54)
[2020-05-17] MEDS: FOLIC ACID 1 MG TAB PO SCH (09:54)
[2020-05-17] MEDS: allopurinoL 100 MG TAB PO SCH (09:54)
[2020-05-17] MEDS: LORATADINE 10 MG TAB PO SCH (09:54)
[2020-05-17] MEDS: MIRALAX *UNIT DOSE* 17GM PACKET PO SCH (09:54)
[2020-05-17] MEDS: OMEGA-3 1000MG CAPSULE PO SCH ×2 (09:54→20:08)
[2020-05-17] MEDS: SENNA 8.6 MG TAB (SENOKOT) PO SCH (09:55)
[2020-05-17] MEDS: TAMSULOSIN 0.4 MG CAP PO SCH (09:55)
[2020-05-17] MEDS: POTASSIUM CHLORIDE 10 MEQ SR TABLET PO SCH ×2 (09:55→20:08)
[2020-05-17] MEDS: DIGOXIN 0.125 MG TAB PO SCH (09:55)
[2020-05-17] MEDS: DOCUSATE SODIUM 100MG CAPSULE PO SCH ×2 (09:55→20:08)
[2020-05-17] MEDS: HumaLOG INSULIN (NovoLOG) PER UNIT SC SCH ×5 (09:56→20:08)
[2020-05-17] MEDS: ACETAMINOPH W/CODEINE #3 TAB UD PO PRN ×2 (09:56→18:43)
[2020-05-17 10:00] VITALS: BP 106/99
[2020-05-17] MEDS: TORSEMIDE 20 MG TAB PO SCH (13:13)
[2020-05-17] MEDS: OMEPRAZOLE 20 MG CAP PO SCH (13:16)
[2020-05-17 14:00] VITALS: BP 100/63
--- NOTE | 2020-05-17 16:42 | IPNPDOC ---
Date Seen The patient was seen on 05/17/20. Progress Note SUBJECTIVE: States he feels slightly dizzy with PT/OT. BP stable, on low dose torsemide as of this AM. Denies chest pain, n/v/d, fevers, chills. OBJECTIVE: PHYSICAL EXAMINATION: VITAL SIGNS: Please see below. GEN: well-nourished / well developed/ NAD, very hard of hearing- you have to com municate with paper or yell very loud for him to hear you INTEGUMENT: not flushed/ not jaundice / has generalized pallor HEENT: lips acyanotic /mucus membranes dry / sclera anicteric/ CVS: RRR/NMRG/ no JVP / radial pulses intact / has marked lower extremity edema +3 pitting b/l LUNGS: able to speak full sentences without stopping to take a breath / no coughing / lungs are clear to auscultation bilaterally on room air ABDOMEN: Contour (distended) / soft & not tender with palpation MSK/EXTREMITIES: NCAT / range of motion intact in all 4 extremities NEURO: No focal deficits, CN 2-12 intact. alert and oriented / able to understand and follow all commands PSYCH: Mood and affect appropriate LABORATORY DATA: See below. MICROBIOLOGY: BCx x 2 sets: NG UCx pending IMAGING: Chest x-ray : Improved aeration and improved lung wilson bilaterally. Diffuse interstitial fibrosis pattern. Slight blunting of the right lateral pleural angle." Vascular ultrasound: 1. No evidence of deep vein thrombosis in the right lower extremity vessels. 2. There is a persistent chronic-appearing nonocclusive thrombus present in the proximal left femoral vein, essentially unchanged since the previous Doppler ultrasound exam from 04/28/2020. The left common femoral, mid to distal femoral and popliteal veins are patent without thrombus. " Last Transesophageal echocardiogram 04/2019: 1. Satisfactory appearance of Watchman left atrial appendage closure device 45 days following procedure with no thrombus on the device and an insignificant gap along the lateral aspect between the lateral aspect of the Watchman device and the wall of the left atrial appendage. 2. Normal left ventricle size and systolic function. 3. Appearance of left atrial dilatation. 4. Moderate aortic valve sclerosis. Probably at least mild aortic stenosis by visual assessment. No aortic regurgitation. 5. Mild mitral annular calcification. Moderate mitral regurgitation. 6. Moderate tricuspid regurgitation. MICROBIOLOGY: Please see below. ASSESSMENT: Mr. Fish is an 84-year-old with history of HFpEF, aortic stenosis, aortic sclerosis, atrial fibrillation with watchman device, DVTs and PEs, BPH, REBEKAH, IDDM, hypothyroidism, thoracic abdominal aneurysm, and impaired hearing , who presented with complaints of bilateral lower extremity swelling, likely due to acute HFpEF and was found to have ANTHONY, which is likely cardiorenal in nature and hypotension. PLAN: Hypotension, acute on chronic- improved -BL systolic 90-110's mmHg. Currently here -F/u echocardiogram -Currently AAOx3, good pulses and ext warm, perfusing well. Acute on chronic HFpEF with exacerbation -Incr lower ext swelling, +3 b/l lower ext swelling -04/30/2020 BNP 6947 --> 8934 -Currently in neg fluid balance maintaining normal pressures -Trop neg -CXR: no pulmonary edema -Echocardiogram results pending -restarted low dose torsemide today. Careful not to make hypotensive if overdiureses -Not on BB or ACEi at home -C/w close monitoring of I&O's, daily wts. IDDM / hypoglycemia -Hypoglycemia resolved, BS improved -C/w only ISS coverage for now -C/w consistent carb diet, accuchecks , hypoglycemia protocol, sliding scale insulin if warrants CKD Stage III -BL Cr 1.4-1.5 -Currently 1.5- watch with diuresis -Monitor closely with daily labs Chronic DVT LLE, PE -LE doppler: chronic-appearing nonocclusive thrombus present in the proximal left femoral vein, essentially unchanged since the previous Doppler ultrasound exam from 04/28/2020. -IVC filter in place, AC CI due to hx of GI bleeds UTI -F/u UCx, BCx -Ceftriaxone day 2 Anemia likely multifactorial with Macrocytic anemia, BROCK -Vitamin B12 and folate levels wnl -Low iron -C/w iron supplement -No s/s of bleeding Physical deconditioning, chronic -PT/OT: OOB for meals, SPT with 2 Assist, RW and GAIT BELT, or Lola Steady -Would continue to benefit from services Atrial fibrillation watchman device placed, therefore, he is no longer not coagulation -Stable -Digoxin Gout -Allopurinol Hypothyroidism -Levothyroxine REBEKAH -CPAP 7 cm H2o Thoracic abdominal aneurysm -surveillance abdominal US per PCP BPH Plan: c/w Brantley DVT Px -Heparin Resolved issues: Mild lactic acidosis DISPOSITION: Currently in patient status. Plan is d/c back to [facility] when medically appropriate. PFS consult has been placed VS, I&O, 24H, Fishbone Vital Signs/I&O Vital Signs Date Time Temp Pulse Resp B/P (MAP) Pulse Ox O2 Delivery O2 Flow Rate FiO2 05/17/20 14:00 98.8 96 18 100/63 (75) 98 Room Air I&O- Last 24 Hours up to 6 AM 05/17/20 06:00 Intake Total 260 ml Output Total 1420 ml Balance -1160 ml Laboratory Data 24H LABS Laboratory Tests 2 05/16/20 21:22: Bedside Glucose (Misc Panel) 160H 05/17/20 05:51: Nucleated Red Blood Cells % (auto) 0.3H, Anion Gap 8, Glomerular Filtration Rate 44.9, Calcium Level 8.7L, Total Bilirubin 0.7, Aspartate Amino Transf (AST/SGOT) 21, Alanine Aminotransferase (ALT/SGPT) 16, Alkaline Phosphatase 137H, Total Protein 6.5, Albumin 2.6L, Albumin/Globulin Ratio 0.7 05/17/20 06:53: Bedside Glucose (Misc Panel) 103 05/17/20 11:34: Bedside Glucose (Misc Panel) 127H CBC/BMP Laboratory Tests 05/17/20 05:51 Microbiology Microbiology 05/15/20 Urine Culture, Received Pending 05/15/20 Blood Culture - Preliminary, Resulted No growth after 24 hours . All specim... 05/15/20 Blood Culture - Preliminary, Resulted No growth after 24 hours . All specim... Current Medications Current Medications Medications (Trade) Dose Ordered Sig/Wendy Route PRN Reason Start Time Stop Time Status Last Admin Dose Admin Acetaminophen (Tylenol Tab) 650 mg Q4H PRN PO PAIN OR FEVER 05/15/20 20:00 05/16/20 18:11 DC 05/16/20 01:11 Acetaminophen (Tylenol Tab) 650 mg Q4H PRN PO MILD PAIN OR FEVER 05/16/20 01:15 Acetaminophen/ Codeine Phosphate (Tylenol/Codeine #3 Tablet) 1 ea Q6H PRN PO MODERATE/SEVERE PAIN (PS 5-10) 05/16/20 01:15 05/17/20 09:56 Al Hydrox/Mg Hydrox/Simethicone (Mylanta) 30 ml DAILY PRN PO DYSPEPSIA 05/15/20 20:00 Allopurinol (Zyloprim) 200 mg DAILY PO 05/16/20 09:00 05/17/20 09:54 Calcium/Vitamin D (Oscal D) 500 mg QHS PO 05/16/20 21:00 05/16/20 21:46 Ceftriaxone Sodium 1 gm/ Dextrose 50 ml @ 100 mls/hr Q24H IV 05/16/20 18:00 05/16/20 18:28 Dextrose (Dextrose 50%) 25 ml ASDIRECTED PRN IV SEE LABEL COMMENTS 05/16/20 04:30 Digoxin (Lanoxin) 0.125 mg DAILY PO 05/16/20 09:00 05/17/20 09:55 Docusate Sodium (Colace) 200 mg BID PO 05/15/20 21:00 05/17/20 09:55 Ferrous Gluconate (Fergon) 648 mg DAILY PO 05/16/20 09:00 05/17/20 09:54 Fish Oil ([place]-3 (1000mg)) 1 cap BID PO 05/15/20 21:00 05/17/20 09:54 Folic Acid (Folic Acid) 1 mg DAILY PO 05/16/20 09:00 05/17/20 09:54 Glucagon (Glucagon) 1 mg ASDIRECTED PRN SC SEE LABEL COMMENTS 05/16/20 04:30 Glucose (Glucose) 16 GM ASDIRECTED PRN PO SEE LABEL COMMENTS 05/16/20 04:30 Heparin Sodium (Porcine) (Heparin) 5,000 units Q8H SC 05/15/20 22:00 05/17/20 13:13 Home Med (Med Rec Complete!) ASDIRECTED XX 05/15/20 19:30 05/15/20 19:30 DC Insulin Detemir (Levemir Insulin) 10 units QAM SC 05/16/20 09:00 05/16/20 16:38 DC Insulin Detemir (Levemir Insulin) 35 units QAM SC 05/16/20 09:00 05/16/20 04:48 DC Insulin Human Lispro (HumaLOG INSULIN) See Protocol Table AC SC 05/16/20 07:30 05/17/20 09:56 Insulin Human Lispro (HumaLOG INSULIN) See Protocol Table QHS SC 05/16/20 21:00 Levothyroxine Sodium (Synthroid) 125 mcg DAILY@0600 PO 05/16/20 06:00 05/17/20 06:19 Loratadine (Claritin) 10 mg DAILY PO 05/16/20 09:00 05/17/20 09:54 Magnesium Hydroxide (Milk Of Magnesia) 30 ml DAILY PRN PO CONSTIPATION 05/15/20 20:00 Magnesium Hydroxide (Milk Of Magnesia) 60 ml DAILY PRN PO CONSTIPATION 05/16/20 01:15 Multivitamins (Theragram-M) 1 tab DAILY PO 05/16/20 09:00 05/17/20 09:54 Omeprazole (PriLOSEC) 40 mg DAILY PO 05/17/20 09:00 05/17/20 13:16 Polyethylene Glycol (Miralax) 1 pkt DAILY PO 05/16/20 09:00 05/17/20 09:54 Potassium Chloride (Micro-K Extencaps) 20 meq BID PO 05/15/20 21:00 05/17/20 09:55 Primidone (Mysoline) 100 mg QHS PO 05/16/20 21:00 05/16/20 22:03 Senna (Senokot) 1 tab QHS PRN PO CONSTIPATION 05/16/20 01:15 Senna (Senokot) 2 tab DAILY PO 05/16/20 09:00 05/17/20 09:55 Simvastatin (Zocor) 10 mg QHS PO 05/16/20 21:00 05/16/20 21:46 Tamsulosin HCl (Flomax) 0.4 mg DAILY PO 05/16/20 09:00 05/17/20 09:55 Torsemide (Demadex) 20 mg DAILY PO 05/17/20 09:00 05/17/20 13:13 Allergies Coded Allergies: Beta-Blockers (Beta-Adrenergic Bloc (Verified Allergy, Unknown, 05/09/19) spironolactone (Verified Allergy, Unknown, 05/09/19) warfarin (Verified Allergy, Unknown, 05/09/19) indomethacin (Verified Adverse Reaction, Intermediate, HALLUCINATIONS, 05/09/19) Nae Murrieta MD May 17, 2020 16:42
[2020-05-17 18:00] VITALS: BP 100/59
[2020-05-17] MEDS: cefTRIAXone SOD 1 GM in D5W MINI-BAG PLUS 50 ML IV SCH (18:43)
[2020-05-17 20:00] VITALS: BP 109/63
[2020-05-17] MEDS: SIMVASTATIN 10 MG TAB PO SCH (20:08)
[2020-05-17] MEDS: CALCIUM/VITAMIN D 500 MG TAB PO SCH (20:08)
[2020-05-17] MEDS: PRIMIDONE 50 MG TAB PO SCH (20:44)
[2020-05-18 02:00] VITALS: BP 101/69
[2020-05-18] MEDS: HEPARIN SOD (PORCINE) 5000UNITS/ML 1ML VIAL/SYRINGE SC SCH ×3 (05:48→21:40)
[2020-05-18] MEDS: LEVOTHYROXINE 125MCG TABLET (0.125MG) PO SCH (05:48)
[2020-05-18 06:00] VITALS: BP 101/63
[2020-05-18 06:26] LABS: HEMATOCRIT 29.7 % (42.0-52.0); HEMOGLOBIN 9.4 g/dl (13.5-17.5); MEAN CORPUSCULAR HEMOGLOBIN 31.5 pg (27.0-33.0); MEAN CORPUSCULAR HGB CONC 31.6 g/dl (32.0-36.5); MEAN CORPUSCULAR VOLUME 99.7 fl (80.0-96.0); PLATELET COUNT, AUTOMATED 151 10^3/uL (150-450); RED BLOOD COUNT 2.98 10^6/uL (4.30-6.10); WHITE BLOOD COUNT 8.7 10^3/uL (4.0-10.0)
[2020-05-18 06:50] LABS: ALBUMIN 2.7 GM/DL (3.2-5.2); BILIRUBIN,TOTAL 0.8 MG/DL (0.2-1.0); CALCIUM LEVEL 8.2 MG/DL (8.8-10.2); CREATININE FOR GFR 1.75 MG/DL (0.70-1.30); GLOMERULAR FILTRATION RATE 39.6 (>35); POTASSIUM SERUM 4.8 MEQ/L (3.5-5.1); TOTAL PROTEIN 6.6 GM/DL (6.4-8.2)
[2020-05-18] MEDS: allopurinoL 100 MG TAB PO SCH (09:32)
[2020-05-18] MEDS: OMEGA-3 1000MG CAPSULE PO SCH ×2 (09:32→21:40)
[2020-05-18] MEDS: MULTIVITAMINS/MINERALS THERAP 1 TAB PO SCH (09:32)
[2020-05-18] MEDS: TAMSULOSIN 0.4 MG CAP PO SCH (09:32)
[2020-05-18] MEDS: FOLIC ACID 1 MG TAB PO SCH (09:32)
[2020-05-18] MEDS: LevoFLOXacin 250 MG TABLET PO SCH (09:32)
[2020-05-18] MEDS: LORATADINE 10 MG TAB PO SCH (09:32)
[2020-05-18] MEDS: SENNA 8.6 MG TAB (SENOKOT) PO SCH (09:32)
[2020-05-18] MEDS: DOCUSATE SODIUM 100MG CAPSULE PO SCH ×2 (09:33→21:41)
[2020-05-18] MEDS: OMEPRAZOLE 20 MG CAP PO SCH (09:33)
[2020-05-18] MEDS: POTASSIUM CHLORIDE 10 MEQ SR TABLET PO SCH ×2 (09:33→21:41)
[2020-05-18] MEDS: FERROUS GLUCONATE 324 MG TAB PO SCH (09:33)
[2020-05-18] MEDS: MIRALAX *UNIT DOSE* 17GM PACKET PO SCH (09:33)
[2020-05-18] MEDS: TORSEMIDE 20 MG TAB PO SCH (09:33)
[2020-05-18] MEDS: HumaLOG INSULIN (NovoLOG) PER UNIT SC SCH ×4 (09:34→21:00)
[2020-05-18] MEDS: DIGOXIN 0.125 MG TAB PO SCH (09:35)
[2020-05-18] MEDS: ACETAMINOPH W/CODEINE #3 TAB UD PO PRN ×2 (09:35→23:14)
[2020-05-18 10:00] VITALS: BP 102/63
[2020-05-18 14:00] VITALS: BP 99/62
--- NOTE | 2020-05-18 14:57 | IPNPDOC ---
Date Seen The patient was seen on 05/18/20. Progress Note SUBJECTIVE: BP stable. Cr bumped some this AM but not much elevated from normal. Increased to 40 mg IV lasix, d/c torsemide as patient's lower ext still quite edematous. Fluid restructions. D/c IV abx --> PO. Denies incr SOB, chest pain, n/v/d, fevers, chills. OBJECTIVE: PHYSICAL EXAMINATION: VITAL SIGNS: Please see below. GEN: well-nourished / well developed/ NAD, very hard of hearing- you have to communicate with paper or yell very loud for him to hear you INTEGUMENT: not flushed/ not jaundice / has generalized pallor HEENT: lips acyanotic /mucus membranes dry / sclera anicteric/ CVS: RRR/NMRG/ no JVP / radial pulses intact / has marked lower extremity edema +3 pitting b/l LUNGS: able to speak full sentences without stopping to take a breath / no coughing / lungs are clear to auscultation bilaterally on room air ABDOMEN: Contour (distended) / soft & not tender with palpation MSK/EXTREMITIES: NCAT / range of motion intact in all 4 extremities NEURO: No focal deficits, CN 2-12 intact. alert and oriented / able to understand and follow all commands PSYCH: Mood and affect appropriate LABORATORY DATA: See below. MICROBIOLOGY: BCx x 2 sets: NG UCx pending IMAGING: Chest x-ray : Improved aeration and improved lung wilson bilaterally. Diffuse interstitial fibrosis pattern. Slight blunting of the right lateral pleural angle." Vascular ultrasound: 1. No evidence of deep vein thrombosis in the right lower extremity vessels. 2. There is a persistent chronic-appearing nonocclusive thrombus present in the proximal left femoral vein, essentially unchanged since the previous Doppler ultrasound exam from 04/28/2020. The left common femoral, mid to distal femoral and popliteal veins are patent without thrombus. " Last Transesophageal echocardiogram 04/2019: 1. Satisfactory appearance of Watchman left atrial appendage closure device 45 days following procedure with no thrombus on the device and an insignificant gap along the lateral aspect between the lateral aspect of the Watchman device and the wall of the left atrial appendage. 2. Normal left ventricle size and systolic function. 3. Appearance of left atrial dilatation. 4. Moderate aortic valve sclerosis. Probably at least mild aortic stenosis by visual assessment. No aortic regurgitation. 5. Mild mitral annular calcification. Moderate mitral regurgitation. 6. Moderate tricuspid regurgitation. MICROBIOLOGY: Please see below. ASSESSMENT: Mr. Fish is an 84-year-old with history of HFpEF, aortic stenosis, aortic sclerosis, atrial fibrillation with watchman device, DVTs and PEs, BPH, REBEKAH, IDDM, hypothyroidism, thoracic abdominal aneurysm, and impaired hearing , who presented with complaints of bilateral lower extremity swelling, likely due to acute HFpEF and was found to have ANTHONY, which is likely cardiorenal in nature and hypotension. PLAN: Hypotension, acute on chronic- improved -BP at baseline -F/u echocardiogram -Currently AAOx3, good pulses and ext warm, perfusing well. Acute on chronic HFpEF with exacerbation -Incr lower ext swelling, +3 b/l lower ext swelling - not much improved -BNP 6947 --> 8934--> 4797 -Trop neg -CXR: no pulmonary edema -Echocardiogram results pending- done 05/16/20 -Incr to lasix 40 mg IV daily -Not on BB or ACEi at home due to lower than normal BP's (baseline) -C/w close monitoring of I&O's, daily wts, fluid restriction IDDM / hypoglycemia -C/w only ISS coverage for now -C/w consistent carb diet, accuchecks , hypoglycemia protocol CKD Stage III -BL Cr 1.4-1.5 -Currently Cr 1.75 -Monitor closely with daily labs Chronic DVT LLE, PE -LE doppler: chronic-appearing nonocclusive thrombus present in the proximal left femoral vein, essentially unchanged since the previous Doppler ultrasound exam from 04/28/2020. -IVC filter in place, AC CI due to hx of GI bleeds E. faecalis UTI -BCx NG -Ceftriaxone day 3 Anemia likely multifactorial with Macrocytic anemia, BROCK -Vitamin B12 and folate levels wnl -Low iron -C/w iron supplement -No s/s of bleeding Physical deconditioning, chronic -PT/OT: OOB for meals, SPT with 2 Assist, RW and GAIT BELT, or Lola Steady -Would continue to benefit from services -From [facility] Atrial fibrillation watchman device placed, therefore, he is no longer not coagulation -Stable -Digoxin Gout -Allopurinol Hypothyroidism -Levothyroxine REBEKAH -CPAP 7 cm H2o Thoracic abdominal aneurysm -surveillance abdominal US per PCP BPH -C/w Brantley DVT Px -Heparin Resolved issues: Mild lactic acidosis DISPOSITION: Currently in patient status. Plan is d/c back to [facility] when medically appropriate. PFS consult has been placed VS, I&O, 24H, Fishbone Vital Signs/I&O Vital Signs Date Time Temp Pulse Resp B/P (MAP) Pulse Ox O2 Delivery O2 Flow Rate FiO2 05/18/20 10:05 20 05/18/20 10:00 97.1 86 102/63 (76) 100 05/18/20 09:35 Room Air I&O- Last 24 Hours up to 6 AM 05/18/20 06:00 Intake Total 2105 ml Output Total 1600 ml Balance 505 ml Laboratory Data 24H LABS Laboratory Tests 2 05/17/20 16:54: Bedside Glucose (Misc Panel) 121H 05/17/20 19:53: Bedside Glucose (Misc Panel) 144H 05/18/20 06:04: Nucleated Red Blood Cells % (auto) 0.8H, Anion Gap 8, Glomerular Filtration Rate 39.6, Calcium Level 8.2L, Total Bilirubin 0.8, Aspartate Amino Transf (AST/SGOT) 19, Alanine Aminotransferase (ALT/SGPT) 15, Alkaline Phosphatase 135H, HM-Vtr-Y-Type Natriuretic Peptide 4797H, Total Protein 6.6, Albumin 2.7L, Albumin/Globulin Ratio 0.7 05/18/20 11:32: Bedside Glucose (Misc Panel) 130H CBC/BMP Laboratory Tests 05/18/20 06:04 Microbiology Microbiology 05/15/20 Urine Culture - Final, Complete Enterococcus Faecalis 05/15/20 Blood Culture - Preliminary, Resulted No Growth after 48 hours. All Specime... 05/15/20 Blood Culture - Preliminary, Resulted No Growth after 48 hours. All Specime... Current Medications Current Medications Medications (Trade) Dose Ordered Sig/Wendy Route PRN Reason Start Time Stop Time Status Last Admin Dose Admin Acetaminophen (Tylenol Tab) 650 mg Q4H PRN PO PAIN OR FEVER 05/15/20 20:00 05/16/20 18:11 DC 05/16/20 01:11 Acetaminophen (Tylenol Tab) 650 mg Q4H PRN PO MILD PAIN OR FEVER 05/16/20 01:15 Acetaminophen/ Codeine Phosphate (Tylenol/Codeine #3 Tablet) 1 ea Q6H PRN PO MODERATE/SEVERE PAIN (PS 5-10) 05/16/20 01:15 05/18/20 09:35 Al Hydrox/Mg Hydrox/Simethicone (Mylanta) 30 ml DAILY PRN PO DYSPEPSIA 05/15/20 20:00 Allopurinol (Zyloprim) 200 mg DAILY PO 05/16/20 09:00 05/18/20 09:32 Calcium/Vitamin D (Oscal D) 500 mg QHS PO 05/16/20 21:00 05/17/20 20:08 Ceftriaxone Sodium 1 gm/ Dextrose 50 ml @ 100 mls/hr Q24H IV 05/16/20 18:00 05/18/20 08:39 DC 05/17/20 18:43 Dextrose (Dextrose 50%) 25 ml ASDIRECTED PRN IV SEE LABEL COMMENTS 05/16/20 04:30 Digoxin (Lanoxin) 0.125 mg DAILY PO 05/16/20 09:00 05/18/20 09:35 Docusate Sodium (Colace) 200 mg BID PO 05/15/20 21:00 05/18/20 09:33 Ferrous Gluconate (Fergon) 648 mg DAILY PO 05/16/20 09:00 05/18/20 09:33 Fish Oil ([place]-3 (1000mg)) 1 cap BID PO 05/15/20 21:00 05/18/20 09:32 Folic Acid (Folic Acid) 1 mg DAILY PO 05/16/20 09:00 05/18/20 09:32 Glucagon (Glucagon) 1 mg ASDIRECTED PRN SC SEE LABEL COMMENTS 05/16/20 04:30 Glucose (Glucose) 16 GM ASDIRECTED PRN PO SEE LABEL COMMENTS 05/16/20 04:30 Heparin Sodium (Porcine) (Heparin) 5,000 units Q8H SC 05/15/20 22:00 05/18/20 13:01 Home Med (Med Rec Complete!) ASDIRECTED XX 05/15/20 19:30 05/15/20 19:30 DC Insulin Detemir (Levemir Insulin) 10 units QAM SC 05/16/20 09:00 05/16/20 16:38 DC Insulin Detemir (Levemir Insulin) 35 units QAM SC 05/16/20 09:00 05/16/20 04:48 DC Insulin Human Lispro (HumaLOG INSULIN) See Protocol Table AC SC 05/16/20 07:30 05/18/20 13:01 Insulin Human Lispro (HumaLOG INSULIN) See Protocol Table QHS SC 05/16/20 21:00 Levofloxacin (Levaquin) 250 mg DAILY@06 PO 05/18/20 06:00 05/18/20 09:32 Levothyroxine Sodium (Synthroid) 125 mcg DAILY@0600 PO 05/16/20 06:00 05/18/20 05:48 Loratadine (Claritin) 10 mg DAILY PO 05/16/20 09:00 05/18/20 09:32 Magnesium Hydroxide (Milk Of Magnesia) 30 ml DAILY PRN PO CONSTIPATION 05/15/20 20:00 Magnesium Hydroxide (Milk Of Magnesia) 60 ml DAILY PRN PO CONSTIPATION 05/16/20 01:15 Multivitamins (Theragram-M) 1 tab DAILY PO 05/16/20 09:00 05/18/20 09:32 Omeprazole (PriLOSEC) 40 mg DAILY PO 05/17/20 09:00 05/18/20 09:33 Polyethylene Glycol (Miralax) 1 pkt DAILY PO 05/16/20 09:00 05/18/20 09:33 Potassium Chloride (Micro-K Extencaps) 20 meq BID PO 05/15/20 21:00 05/18/20 09:33 Primidone (Mysoline) 100 mg QHS PO 05/16/20 21:00 05/17/20 20:44 Senna (Senokot) 1 tab QHS PRN PO CONSTIPATION 05/16/20 01:15 Senna (Senokot) 2 tab DAILY PO 05/16/20 09:00 05/18/20 09:32 Simvastatin (Zocor) 10 mg QHS PO 05/16/20 21:00 05/17/20 20:08 Tamsulosin HCl (Flomax) 0.4 mg DAILY PO 05/16/20 09:00 05/18/20 09:32 Torsemide (Demadex) 20 mg DAILY PO 05/17/20 09:00 05/18/20 09:33 Allergies Coded Allergies: Beta-Blockers (Beta-Adrenergic Bloc (Verified Allergy, Unknown, 05/09/19) spironolactone (Verified Allergy, Unknown, 05/09/19) warfarin (Verified Allergy, Unknown, 05/09/19) indomethacin (Verified Adverse Reaction, Intermediate, HALLUCINATIONS, 05/09/19) Nae Murrieta MD May 18, 2020 14:57
[2020-05-18] MEDS ORDERED: FUROSEMIDE 20MG/2ML VIAL (J1940) IV ONE (16:00)
[2020-05-18] MEDS: ACETAMINOPHEN TAB 650MG DOSE (2X325MG) PO PRN (17:06)
[2020-05-18 18:00] VITALS: BP 98/62
[2020-05-18] MEDS: PRIMIDONE 50 MG TAB PO SCH (21:40)
[2020-05-18] MEDS: SIMVASTATIN 10 MG TAB PO SCH (21:41)
[2020-05-18] MEDS: CALCIUM/VITAMIN D 500 MG TAB PO SCH (21:41)
[2020-05-18 22:00] VITALS: BP 100/63
[2020-05-19 02:00] VITALS: BP 109/63
[2020-05-19] MEDS: LEVOTHYROXINE 125MCG TABLET (0.125MG) PO SCH (05:27)
[2020-05-19] MEDS: LevoFLOXacin 250 MG TABLET PO SCH (05:27)
[2020-05-19] MEDS: HEPARIN SOD (PORCINE) 5000UNITS/ML 1ML VIAL/SYRINGE SC SCH ×3 (05:28→20:59)
[2020-05-19 06:00] VITALS: BP 110/71
[2020-05-19 06:30] LABS: HEMOGLOBIN 9.9 g/dl (13.5-17.5); MEAN CORPUSCULAR HEMOGLOBIN 32.6 pg (27.0-33.0); MEAN CORPUSCULAR VOLUME 98.7 fl (80.0-96.0); PLATELET COUNT, AUTOMATED 146 10^3/uL (150-450); RED BLOOD COUNT 3.04 10^6/uL (4.30-6.10); WHITE BLOOD COUNT 8.3 10^3/uL (4.0-10.0)
[2020-05-19 06:52] LABS: ALBUMIN 2.6 GM/DL (3.2-5.2); BILIRUBIN,TOTAL 0.7 MG/DL (0.2-1.0); CALCIUM LEVEL 8.5 MG/DL (8.8-10.2); CREATININE FOR GFR 1.72 MG/DL (0.70-1.30); GLOMERULAR FILTRATION RATE 40.4 (>35); POTASSIUM SERUM 4.9 MEQ/L (3.5-5.1); TOTAL PROTEIN 6.9 GM/DL (6.4-8.2)
[2020-05-19] MEDS ORDERED: FUROSEMIDE 40MG/4ML VIAL (J1940) IV SCH (09:00)
[2020-05-19 10:00] VITALS: BP 106/69
[2020-05-19] MEDS: MIRALAX *UNIT DOSE* 17GM PACKET PO SCH (10:01)
[2020-05-19] MEDS: LORATADINE 10 MG TAB PO SCH (10:02)
[2020-05-19] MEDS: OMEPRAZOLE 20 MG CAP PO SCH (10:02)
[2020-05-19] MEDS: DIGOXIN 0.125 MG TAB PO SCH (10:02)
[2020-05-19] MEDS: DOCUSATE SODIUM 100MG CAPSULE PO SCH ×2 (10:02→20:57)
[2020-05-19] MEDS: MULTIVITAMINS/MINERALS THERAP 1 TAB PO SCH (10:03)
[2020-05-19] MEDS: TAMSULOSIN 0.4 MG CAP PO SCH (10:03)
[2020-05-19] MEDS: allopurinoL 100 MG TAB PO SCH (10:03)
[2020-05-19] MEDS: POTASSIUM CHLORIDE 10 MEQ SR TABLET PO SCH ×2 (10:03→20:57)
[2020-05-19] MEDS: OMEGA-3 1000MG CAPSULE PO SCH ×2 (10:03→20:57)
[2020-05-19] MEDS: SENNA 8.6 MG TAB (SENOKOT) PO SCH (10:03)
[2020-05-19] MEDS: FERROUS GLUCONATE 324 MG TAB PO SCH (10:04)
[2020-05-19] MEDS: FOLIC ACID 1 MG TAB PO SCH (10:04)
[2020-05-19] MEDS: HumaLOG INSULIN (NovoLOG) PER UNIT SC SCH ×4 (10:05→20:58)
--- NOTE | 2020-05-19 10:26 | ECHO ---
DATE OF PROCEDURE: 05/16/2020 Age: 84 Gender: Male REFERRING PHYSICIAN: Dr. Nae Murrieta. INDICATION: Shortness of breath, atrial fibrillation. MEASUREMENTS: IVC 2.6 cm LA cm RV 4.2 cm IVS 1.2 cm LV 5.2 cm LVPW 1.2 cm Aorta 3.5 cm FINDINGS: Study is of excellent technical quality. The patient is in atrial fibrillation with ventricular rate approximately 100 beats per minute. Left ventricle is normal size. There is mild left ventricular hypertrophy. There is dyskinetic motion of the septum likely due to underlying conductive disease. There is also global hypokinesis. Estimated LVEF approximately 35% to 40%. Right ventricle appears dilated and hypokinetic. There is severe biatrial enlargement. The aortic valve is heavily sclerotic, it is tricuspid, and there is severe restriction of leaflet mobility. Based on 2D imaging, I estimate that the aortic stenosis is severe. There are degenerative abnormalities of the mitral valve with thickening of the mitral leaflet and mitral annular calcifications. Mobility of the leaflet is preserved. Tricuspid and pulmonic valve appear normal. No pericardial effusion is noted. Inferior vena cava is dilated and has only partial collapse with inspiration indicative of high central venous pressure. The aortic root is normal. The aortic arch and abdominal aorta were not well visualized. Doppler interrogation reveals severe aortic stenosis. Peak aortic gradient is 48 mmHg, mean gradient 30 mmHg, and calculated aortic valve area 0.7 cm2. No aortic insufficiency is present. There is approximately moderate mitral insufficiency and severe tricuspid insufficiency. Calculated pulmonary artery pressure is at minimum in the high 40s corresponding to moderate and potentially even higher pulmonary hypertension. Evaluation of diastolic function is inconclusive due to underlying atrial fibrillation. CONCLUSIONS: 1. Study is of good technical quality, underlying atrial fibrillation with wide QRS complex. 2. Normal LV size with septal dyskinesis and global hypokinesis and estimated LVEF approximately 35% to 40%. 3. Dilated hypokinetic right ventricle. 4. Severe biatrial enlargement. 5. Likely severe aortic stenosis (mean gradient 30, calculated aortic valve area 0.7 cm2). 6. Moderate mitral insufficiency. 7. Severe tricuspid insufficiency. 8. High central venous pressure and at least moderate pulmonary hypertension. MTDD
[2020-05-19 14:00] VITALS: BP 104/63
--- NOTE | 2020-05-19 17:00 | IPNPDOC ---
Date Seen The patient was seen on 05/19/20. Progress Note SUBJECTIVE: Cr similar to 05/18/20 despite incr lasix IV. Neg fluid balance overnight. Lower ext swelling look minimally improved but BNP improving. Echo shows change in EF, decreased to 30-40%, discussed with cardiology (Dr. Holt). Patient denies incr SOB, chest pain, n/v/d, fevers, chills. OBJECTIVE: PHYSICAL EXAMINATION: VITAL SIGNS: Please see below. GEN: well-nourished / well developed/ NAD, very hard of hearing- you have to communicate with paper or yell very loud for him to hear you INTEGUMENT: not flushed/ not jaundice / has generalized pallor HEENT: lips acyanotic /mucus membranes dry / sclera anicteric/ CVS: RRR/NMRG/ no JVP / radial pulses intact / lower extremity edema +2-3 pitting b/l LUNGS: able to speak full sentences without stopping to take a breath / no coughing / lungs are clear to auscultation bilaterally on room air ABDOMEN: Contour (distended) / soft & not tender with palpation MSK/EXTREMITIES: NCAT / range of motion intact in all 4 extremities NEURO: No focal deficits, CN 2-12 intact. alert and oriented / able to understand and follow all commands PSYCH: Mood and affect appropriate LABORATORY DATA: See below. MICROBIOLOGY: BCx x 2 sets: NG UCx: E. faecalis IMAGING: Echocardiogram 05/16/20: 1. Study is of good technical quality, underlying atrial fibrillation with wideQRS complex. 2. Normal LV size with septal dyskinesis and global hypokinesis and estimated LVEF approximately 35% to 40%. 3. Dilated hypokinetic right ventricle. 4. Severe biatrial enlargement. 5. Likely severe aortic stenosis (mean gradient 30, calculated aortic valve area 0.7 cm2). 6. Moderate mitral insufficiency. 7. Severe tricuspid insufficiency. 8. High central venous pressure and at least moderate pulmonary hypertension. Chest x-ray : Improved aeration and improved lung wilson bilaterally. Diffuse interstitial fibrosis pattern. Slight blunting of the right lateral pleural angle." Vascular ultrasound: 1. No evidence of deep vein thrombosis in the right lower extremity vessels. 2. There is a persistent chronic-appearing nonocclusive thrombus present in the proximal left femoral vein, essentially unchanged since the previous Doppler ultrasound exam from 04/28/2020. The left common femoral, mid to distal femoral and popliteal veins are patent without thrombus. " Last Transesophageal echocardiogram 04/2019: 1. Satisfactory appearance of Watchman left atrial appendage closure device 45 days following procedure with no thrombus on the device and an insignificant gap along the lateral aspect between the lateral aspect of the Watchman device and the wall of the left atrial appendage. 2. Normal left ventricle size and systolic function. 3. Appearance of left atrial dilatation. 4. Moderate aortic valve sclerosis. Probably at least mild aortic stenosis by visual assessment. No aortic regurgitation. 5. Mild mitral annular calcification. Moderate mitral regurgitation. 6. Moderate tricuspid regurgitation. MICROBIOLOGY: Please see below. ASSESSMENT: Mr. Fish is an 84-year-old with history of HFpEF, aortic stenosis, aortic sclerosis, atrial fibrillation with watchman device, DVTs and PEs, BPH, REBEKAH, IDDM, hypothyroidism, thoracic abdominal aneurysm, and impaired hearing , who presented with complaints of bilateral lower extremity swelling, likely due to acute HFpEF and was found to have ANTHONY, which is likely cardiorenal in nature and hypotension. PLAN: Acute on chronic HFrEF with exacerbation -New echocardiogram above shows EF dropped to 35-40%, indicating systolic dysfunction now, previously EF preserved upon review of old Echos with Dr. Holt. -Lower ext swelling appears slightly improved over past 24 hours -BNP 6947 --> 8934--> 4797 -Trops neg -CXR: no pulmonary edema -Currently on lasix 40 mg IV daily to help with increased diuresis here. -After review of meds with Dr. Holt, will only keep on torsemide diuretic at discharge. Pressure (low at baseline) likely would not tolerate spironolactone or BB, ACEi. -C/w close monitoring of I&O's, daily wts, fluid restriction while admitted -Will need follow up with Dr. Holt's office arranged prior to discharge home for within 1-2 weeks. Aortic stenosis, moderate degree -Echo above -Discussed with Dr. Holt -Likely not good candidate for TAVR at 84 y/o but they will discuss treatment options with patient at next appointment -C/w treatment above Chronic hypotension -BP at baseline -Currently AAOx3, good pulses and ext warm, perfusing well. -Monitor closely with diuresing -Ok to d IDDM / hypoglycemia -C/w only ISS coverage for now -C/w consistent carb diet, accuchecks , hypoglycemia protocol CKD Stage III -BL Cr 1.4-1.5 -Currently Cr 1.72, slightly improved compared to 05/18/20 -Monitor closely with daily labs while diuresing Chronic DVT LLE, PE -LE doppler: chronic-appearing nonocclusive thrombus present in the proximal left femoral vein, essentially unchanged since the previous Doppler ultrasound exam from 04/28/2020. -IVC filter in place, AC CI due to hx of GI bleeds E. faecalis UTI- treated -BCx NG -Ceftriaxone x3 days, levofloxacin x 2 days Anemia likely multifactorial with Macrocytic anemia, BROCK -Vitamin B12 and folate levels wnl -Low iron -C/w iron supplement -No s/s of bleeding Physical deconditioning, chronic -PT/OT: OOB for meals, SPT with 2 Assist, RW and GAIT BELT, or Lola Steady -Would continue to benefit from services at [facility] Atrial fibrillation watchman device placed, therefore, he is no longer not coagulation -Stable -Digoxin, not on AC or BB, CCB Gout -Allopurinol Hypothyroidism -Levothyroxine REBEKAH -CPAP 7 cm H2o Thoracic abdominal aneurysm -surveillance abdominal US per PCP BPH -C/w Brantley DVT Px -Heparin Resolved issues: Mild lactic acidosis DISPOSITION: Currently inpatient status. Plan is d/c back to [facility] when medically appropriate, likely within 24-48 hours. VS, I&O, 24H, Tish Vital Signs/I&O Vital Signs Date Time Temp Pulse Resp B/P (MAP) Pulse Ox O2 Delivery O2 Flow Rate FiO2 05/19/20 14:00 98.0 86 17 104/63 (77) 100 Room Air I&O- Last 24 Hours up to 6 AM 05/19/20 06:00 Intake Total 1260 ml Output Total 2050 ml Balance -790 ml Laboratory Data 24H LABS Laboratory Tests 2 05/18/20 16:58: Bedside Glucose (Misc Panel) 126H 05/18/20 21:28: Bedside Glucose (Misc Panel) 180H 05/19/20 06:02: Nucleated Red Blood Cells % (auto) 1.1H, Anion Gap 7L, Glomerular Filtration Rate 40.4, Calcium Level 8.5L, Total Bilirubin 0.7, Aspartate Amino Transf (AST/SGOT) 25, Alanine Aminotransferase (ALT/SGPT) 16, Alkaline Phosphatase 133H, Total Protein 6.9, Albumin 2.6L, Albumin/Globulin Ratio 0.6 05/19/20 11:21: Bedside Glucose (Misc Panel) 180H CBC/BMP Laboratory Tests 05/19/20 06:02 Microbiology Microbiology 05/15/20 Urine Culture - Final, Complete Enterococcus Faecalis 05/15/20 Blood Culture - Preliminary, Resulted No Growth after 72 hours. All specime... 05/15/20 Blood Culture - Preliminary, Resulted No Growth after 72 hours. All specime... Current Medications Current Medications Medications (Trade) Dose Ordered Sig/Wendy Route PRN Reason Start Time Stop Time Status Last Admin Dose Admin Acetaminophen (Tylenol Tab) 650 mg Q4H PRN PO PAIN OR FEVER 05/15/20 20:00 05/16/20 18:11 DC 05/16/20 01:11 Acetaminophen (Tylenol Tab) 650 mg Q4H PRN PO MILD PAIN OR FEVER 05/16/20 01:15 05/18/20 17:06 Acetaminophen/ Codeine Phosphate (Tylenol/Codeine #3 Tablet) 1 ea Q6H PRN PO MODERATE/SEVERE PAIN (PS 5-10) 05/16/20 01:15 05/18/20 23:14 Al Hydrox/Mg Hydrox/Simethicone (Mylanta) 30 ml DAILY PRN PO DYSPEPSIA 05/15/20 20:00 Allopurinol (Zyloprim) 200 mg DAILY PO 05/16/20 09:00 05/19/20 10:03 Calcium/Vitamin D (Oscal D) 500 mg QHS PO 05/16/20 21:00 05/18/20 21:41 Ceftriaxone Sodium 1 gm/ Dextrose 50 ml @ 100 mls/hr Q24H IV 05/16/20 18:00 05/18/20 08:39 DC 05/17/20 18:43 Dextrose (Dextrose 50%) 25 ml ASDIRECTED PRN IV SEE LABEL COMMENTS 05/16/20 04:30 Digoxin (Lanoxin) 0.125 mg DAILY PO 05/16/20 09:00 05/19/20 10:02 Docusate Sodium (Colace) 200 mg BID PO 05/15/20 21:00 05/19/20 10:02 Ferrous Gluconate (Fergon) 648 mg DAILY PO 05/16/20 09:00 05/19/20 10:04 Fish Oil ([place]-3 (1000mg)) 1 cap BID PO 05/15/20 21:00 05/19/20 10:03 Folic Acid (Folic Acid) 1 mg DAILY PO 05/16/20 09:00 05/19/20 10:04 Furosemide (LASIX injection) 40 mg DAILY IV 05/19/20 09:00 05/19/20 10:04 Glucagon (Glucagon) 1 mg ASDIRECTED PRN SC SEE LABEL COMMENTS 05/16/20 04:30 Glucose (Glucose) 16 GM ASDIRECTED PRN PO SEE LABEL COMMENTS 05/16/20 04:30 Heparin Sodium (Porcine) (Heparin) 5,000 units Q8H SC 05/15/20 22:00 05/19/20 14:59 Home Med (Med Rec Complete!) ASDIRECTED XX 05/15/20 19:30 05/15/20 19:30 DC Insulin Detemir (Levemir Insulin) 10 units QAM SC 05/16/20 09:00 05/16/20 16:38 DC Insulin Detemir (Levemir Insulin) 35 units QAM SC 05/16/20 09:00 05/16/20 04:48 DC Insulin Human Lispro (HumaLOG INSULIN) See Protocol Table AC SC 05/16/20 07:30 05/19/20 12:29 Insulin Human Lispro (HumaLOG INSULIN) See Protocol Table QHS WV 05/16/20 21:00 Levofloxacin (Levaquin) 250 mg DAILY@06 PO 05/18/20 06:00 05/20/20 12:00 05/19/20 05:27 Levothyroxine Sodium (Synthroid) 125 mcg DAILY@0600 PO 05/16/20 06:00 05/19/20 05:27 Loratadine (Claritin) 10 mg DAILY PO 05/16/20 09:00 05/19/20 10:02 Magnesium Hydroxide (Milk Of Magnesia) 30 ml DAILY PRN PO CONSTIPATION 05/15/20 20:00 Magnesium Hydroxide (Milk Of Magnesia) 60 ml DAILY PRN PO CONSTIPATION 05/16/20 01:15 Multivitamins (Theragram-M) 1 tab DAILY PO 05/16/20 09:00 05/19/20 10:03 Omeprazole (PriLOSEC) 40 mg DAILY PO 05/17/20 09:00 05/19/20 10:02 Polyethylene Glycol (Miralax) 1 pkt DAILY PO 05/16/20 09:00 05/19/20 10:01 Potassium Chloride (Micro-K Extencaps) 20 meq BID PO 05/15/20 21:00 05/19/20 10:03 Primidone (Mysoline) 100 mg QHS PO 05/16/20 21:00 05/18/20 21:40 Senna (Senokot) 1 tab QHS PRN PO CONSTIPATION 05/16/20 01:15 Senna (Senokot) 2 tab DAILY PO 05/16/20 09:00 05/19/20 10:03 Simvastatin (Zocor) 10 mg QHS PO 05/16/20 21:00 05/18/20 21:41 Tamsulosin HCl (Flomax) 0.4 mg DAILY PO 05/16/20 09:00 05/19/20 10:03 Torsemide (Demadex) 20 mg DAILY PO 05/17/20 09:00 05/18/20 14:51 DC 05/18/20 09:33 Allergies Coded Allergies: Beta-Blockers (Beta-Adrenergic Bloc (Verified Allergy, Unknown, 05/09/19) spironolactone (Verified Allergy, Unknown, 05/09/19) warfarin (Verified Allergy, Unknown, 05/09/19) indomethacin (Verified Adverse Reaction, Intermediate, HALLUCINATIONS, 05/09/19) Nae Murrieta MD May 19, 2020 17:00
[2020-05-19 18:00] VITALS: BP 107/70
[2020-05-19] MEDS: CALCIUM/VITAMIN D 500 MG TAB PO SCH (20:57)
[2020-05-19] MEDS: SIMVASTATIN 10 MG TAB PO SCH (20:57)
[2020-05-19] MEDS: PRIMIDONE 50 MG TAB PO SCH (20:57)
[2020-05-19 22:00] VITALS: BP 100/62
[2020-05-19] MEDS: ACETAMINOPH W/CODEINE #3 TAB UD PO PRN (23:35)
[2020-05-20 02:00] VITALS: BP 102/64
[2020-05-20] MEDS: LevoFLOXacin 250 MG TABLET PO SCH (05:57)
[2020-05-20] MEDS: LEVOTHYROXINE 125MCG TABLET (0.125MG) PO SCH (05:57)
[2020-05-20 06:00] VITALS: BP 102/64
[2020-05-20] MEDS: HEPARIN SOD (PORCINE) 5000UNITS/ML 1ML VIAL/SYRINGE SC SCH ×3 (06:11→21:46)
[2020-05-20] MEDS ORDERED: FURO40TA2 PO (09:15)
[2020-05-20] MEDS: HumaLOG INSULIN (NovoLOG) PER UNIT SC SCH ×4 (10:03→21:00)
[2020-05-20] MEDS: MIRALAX *UNIT DOSE* 17GM PACKET PO SCH (10:06)
[2020-05-20] MEDS: OMEPRAZOLE 20 MG CAP PO SCH (10:07)
[2020-05-20] MEDS: allopurinoL 100 MG TAB PO SCH (10:07)
[2020-05-20] MEDS: POTASSIUM CHLORIDE 10 MEQ SR TABLET PO SCH ×2 (10:07→21:47)
[2020-05-20] MEDS: DIGOXIN 0.125 MG TAB PO SCH (10:08)
[2020-05-20] MEDS: FERROUS GLUCONATE 324 MG TAB PO SCH (10:08)
[2020-05-20] MEDS: OMEGA-3 1000MG CAPSULE PO SCH ×2 (10:08→21:46)
[2020-05-20] MEDS: SENNA 8.6 MG TAB (SENOKOT) PO SCH (10:08)
[2020-05-20] MEDS: MULTIVITAMINS/MINERALS THERAP 1 TAB PO SCH (10:08)
[2020-05-20] MEDS: TAMSULOSIN 0.4 MG CAP PO SCH (10:08)
[2020-05-20] MEDS: FOLIC ACID 1 MG TAB PO SCH (10:08)
[2020-05-20] MEDS: DOCUSATE SODIUM 100MG CAPSULE PO SCH ×2 (10:09→21:46)
[2020-05-20] MEDS: LORATADINE 10 MG TAB PO SCH (10:09)
[2020-05-20] MEDS: FUROSEMIDE 40 MG TAB PO SCH (10:09)
[2020-05-20] MEDS: ACETAMINOPH W/CODEINE #3 TAB UD PO PRN (10:15)
--- NOTE | 2020-05-20 13:33 | DS.PDOC ---
Discharge Summary General Date of Admission May 15, 2020 at 19:59 Date of Discharge 05/20/20 discharged to [facility]. Discharge Summary . Discharge diagnoses : acute on chronic systolic and diastolic congestive heart failure exacerbation, ejection fraction 35-40% Severe aortic stenosis . Chronic atrial fibrillation with watchman device History DVT, PE BPH REBEKAH Insulin-dependent diabetes , Hypothyroidism Thoracic aortic aneurysm Presbycusis . 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 Immediate follow-up with Dr. Castillo within 5 days of hospital discharge regarding acute systolic heart failure, ejection fraction 35% and severe aortic stenosis management. Primary care physician appointment within 5 days of discharge Hospital course: Mr. Fish is an 84-year-old with history of HFpEF, SEVERE aortic stenosis, aortic sclerosis, atrial fibrillation with watchman device, DVTs and PEs, BPH, REBEKAH, IDDM, hypothyroidism, thoracic abdominal aneurysm, and impaired hearing , who presented with complaints of bilateral lower extremity swelling, likely due to acute HFpEF and was found to have ANTHONY, which is likely cardiorenal in nature and hypotension. Acute on chronic HFrEF with exacerbation -New echocardiogram above shows EF dropped to 35-40%, indicating systolic dysfunction now, previously EF preserved upon review of old Echos with Dr. Holt. -Patient with diuresis with intravenous Lasix with improvement in his respiratory status and Lower ext edema -BNP 6947 --> 8934--> 4797 -Trops neg -CXR: no pulmonary edema Pressure (low at baseline)-not tolerating torsemide, spironolactone or BB, ACEi. -Continued on strict I's and O's, daily weights, currently on 40 mg of Lasix because of low blood pressure with systolic pressure of 100 mmHg Aortic stenosis, moderate degree -Echo above - not good candidate for TAVR at 84 y/o but they will discuss treatment options with patient at next appointment -Avoiding overdiuresis. Her hypotension. Immediate follow-up with his loading shovel oiler within 5 days of discharge. Patient did not tolerate torsemide, ANAHY inhibitor inhibitors, beta blockers due to low blood pressure of 100 mmHg Chronic hypotension -BP at baseline IDDM / hypoglycemia -Was only ISS coverage for now -Was on consistent carb diet, accuchecks , hypoglycemia protocol CKD Stage III -BL Cr 1.4-1.5 -Currently Cr 1.72, slightly improved compared to 05/18/20 Chronic DVT LLE, PE -LE doppler: chronic-appearing nonocclusive thrombus present in the proximal left femoral vein, essentially unchanged since the previous Doppler ultrasound exam from 04/28/2020. -IVC filter in place, AC CI due to hx of GI bleeds E. faecalis UTI- treated -BCx NG -Ceftriaxone x3 days, levofloxacin x 2 days Anemia likely multifactorial with Macrocytic anemia, BROCK -Vitamin B12 and folate levels wnl -Low iron -C/w iron supplement -No s/s of bleeding Atrial fibrillation watchman device placed, therefore, he is no longer not coagulation -Stable -Digoxin, not on AC or BB, CCB Gout -Allopurinol Hypothyroidism -Levothyroxine REBEKAH -CPAP 7 cm H2o Thoracic abdominal aneurysm -surveillance abdominal US per PCP BPH -C/w Brantley DISCHARGE PHYSICAL EXAMINATION: VITAL SIGNS: Please see below. GEN: Very hard of hearing, no distress. No conversational dyspnea HEENT anicteric. No JVD CVS: Systolic ejection murmur at the apex radiating to the carotids. S1, S2 watchman device anterior chest LUNGS: Clear to auscultation ABDOMEN: Contour (distended) / , positive bowel sounds 4 quadrants soft & not tender with palpation . Extremities 2+ pitting edema bilaterally LABORATORY DATA: See below. MICROBIOLOGY: BCx x 2 sets: NG UCx: E. faecalis IMAGING: Echocardiogram 05/16/20: 1. Study is of good technical quality, underlying atrial fibrillation with wideQRS complex. 2. Normal LV size with septal dyskinesis and global hypokinesis and estimated LVEF approximately 35% to 40%. 3. Dilated hypokinetic right ventricle. 4. Severe biatrial enlargement. 5. Likely severe aortic stenosis (mean gradient 30, calculated aortic valve area 0.7 cm2). 6. Moderate mitral insufficiency. 7. Severe tricuspid insufficiency. 8. High central venous pressure and at least moderate pulmonary hypertension. Chest x-ray : Improved aeration and improved lung wilson bilaterally. Diffuse interstitial fibrosis pattern. Slight blunting of the right lateral pleural angle." Vascular ultrasound: 1. No evidence of deep vein thrombosis in the right lower extremity vessels. 2. There is a persistent chronic-appearing nonocclusive thrombus present in the proximal left femoral vein, essentially unchanged since the previous Doppler ultrasound exam from 04/28/2020. The left common femoral, mid to distal femoral and popliteal veins are patent without thrombus. " Last Transesophageal echocardiogram 04/2019: 1. Satisfactory appearance of Watchman left atrial appendage closure device 45 days following procedure with no thrombus on the device and an insignificant gap along the lateral aspect between the lateral aspect of the Watchman device and the wall of the left atrial appendage. 2. Normal left ventricle size and systolic function. 3. Appearance of left atrial dilatation. 4. Moderate aortic valve sclerosis. Probably at least mild aortic stenosis by visual assessment. No aortic regurgitation. 5. Mild mitral annular calcification. Moderate mitral regurgitation. 6. Moderate tricuspid regurgitation. MICROBIOLOGY: Please see below. Time spent on discharge 30 minutes Vital Signs/I&Os Vital Signs Date Time Temp Pulse Resp B/P (MAP) Pulse Ox O2 Delivery O2 Flow Rate FiO2 05/20/20 10:45 18 05/20/20 10:08 86 05/20/20 06:00 97.6 102/64 (77) 96 Room Air I&O- Last 24 Hours up to 6 AM 05/20/20 06:00 Intake Total 915 ml Output Total 2200 ml Balance -1285 ml Laboratory Data Labs 24H Laboratory Tests 2 05/19/20 17:11: Bedside Glucose (Misc Panel) 124H 05/19/20 20:10: Bedside Glucose (Misc Panel) 158H 05/20/20 07:49: Bedside Glucose (Misc Panel) 167H 05/20/20 11:49: Bedside Glucose (Misc Panel) 136H FSBS Laboratory Tests Test 05/19/20 17:11 05/19/20 20:10 05/20/20 07:49 05/20/20 11:49 Range/Units Bedside Glucose (Misc Panel) 124 158 167 136 83-110 MG/DL Microbiology Microbiology 05/15/20 Urine Culture - Final, Complete Enterococcus Faecalis 05/15/20 Blood Culture - Preliminary, Resulted No Growth after 72 hours. All specime... 05/15/20 Blood Culture - Preliminary, Resulted No Growth after 72 hours. All specime... Discharge Medications Scheduled Allopurinol (Allopurinol) 100 Mg Tab, 200 MG PO DAILY, (Reported) Calcium Carbonate/Vitamin D3 (Oyster Shell 500-Vit D3 200 Tb) 1 Each Tablet, 2 TAB PO QHS, (Reported) Digoxin (Digoxin) 125 Mcg Tab, 125 MCG PO DAILY, (Reported) Docusate Sodium (Docusate Sodium) 100 Mg Capsule, 200 MG PO BID, (Reported) Ferrous Gluconate (Ferrous Gluconate) 324 Mg Tab, 648 MG PO DAILY, (Reported) Folic Acid (Folic Acid) 1 Mg Tab, 1 MG PO DAILY, (Reported) Furosemide (Furosemide) 40 Mg Tablet, 40 MG PO DAILY Insulin Glargine,Hum.rec.anlog (Lantus Solostar) 100 Unit/1 Ml Insuln.pen, 35 UNITS SC QAM, (Reported) Lactose-Reduced Food (Ensure Enlive) 237 Ml Liquid, 120 ML PO TID, (Reported) 0800, 1200, 1700 Levothyroxine Sodium (Levothyroxine Sodium) 125 Mcg Tab, 125 MCG PO QAM, (Reported) Loratadine (Loratadine) 10 Mg Tablet, 10 MG PO DAILY, (Reported) Lovastatin (Lovastatin) 10 Mg Tab, 10 MG PO QHS, (Reported) Lubiprostone (Amitiza) 24 Mcg Capsule, 24 MCG PO BID, (Reported) Multivitamins (Thera M Plus Tablet) 1 Each Tablet, 1 TAB PO DAILY, (Reported) [place]-3/Dha/Epa/Fish Oil (Fish Oil EC 1,000 mg Softgel) 1 Cap Cap, 1,000 MG PO BID, (Reported) Omeprazole (Omeprazole) 40 Mg Capsule.dr, 40 MG PO DAILY, (Reported) Polyethylene Glycol 3350 (Miralax) 17 Gm Powd.pack, 17 GM PO DAILY, (Reported) Potassium Chloride (Potassium Chloride) 20 Meq Tab.er.prt, 20 MEQ PO BID, (Reported) Primidone (Primidone) 50 Mg Tablet, 100 MG PO QHS, (Reported) Sennosides (Senna) 8.6 Mg Tablet, 2 TAB PO DAILY, (Reported) Torsemide (Torsemide) 20 Mg Tablet, 20 MG PO DAILY, (Reported) AT 1400 Scheduled PRN Acetaminophen (Acetaminophen) 325 Mg Tablet, 650 MG PO Q4H PRN for PAIN / FEVER, (Reported) Acetaminophen with Codeine (Acetaminophen-Cod #3 Tablet) 1 Each Tablet, 1 TAB PO Q6H PRN for PAIN, (Reported) Magnesium Hydroxide (Milk of Magnesia) 400 Mg/5 Ml Oral.susp, 60 ML PO DAILY PRN for CONSTIPATION, (Reported) Melatonin (Melatonin) 10 Mg Tablet, 10 MG PO QHS PRN for SLEEP, (Reported) Nitroglycerin (Nitrostat) 0.4 Mg Subl, 0.4 MG SL NITRO PRN for CHEST PAIN, (Reported) Sennosides (Senna) 8.6 Mg Tablet, 1 TAB PO QHS PRN for CONSTIPATION, (Reported) Allergies Coded Allergies: Beta-Blockers (Beta-Adrenergic Bloc (Verified Allergy, Unknown, 05/09/19) spironolactone (Verified Allergy, Unknown, 05/09/19) warfarin (Verified Allergy, Unknown, 05/09/19) indomethacin (Verified Adverse Reaction, Intermediate, HALLUCINATIONS, 05/09/19) SULEMA TUCKER MD May 20, 2020 13:33
[2020-05-20 14:00] VITALS: BP 100/60
[2020-05-20] MEDS: PRIMIDONE 50 MG TAB PO SCH (21:46)
[2020-05-20] MEDS: SIMVASTATIN 10 MG TAB PO SCH (21:46)
[2020-05-20] MEDS: CALCIUM/VITAMIN D 500 MG TAB PO SCH (21:46)
[2020-05-20] MEDS: ACETAMINOPHEN TAB 650MG DOSE (2X325MG) PO PRN (21:50)
[2020-05-20 22:00] VITALS: BP 110/66
[2020-05-21 02:00] VITALS: BP 116/69
[2020-05-21] MEDS: ACETAMINOPH W/CODEINE #3 TAB UD PO PRN ×2 (04:14→10:59)
[2020-05-21 06:00] VITALS: BP 112/67
[2020-05-21] MEDS: HEPARIN SOD (PORCINE) 5000UNITS/ML 1ML VIAL/SYRINGE SC SCH (06:07)
[2020-05-21] MEDS: LEVOTHYROXINE 125MCG TABLET (0.125MG) PO SCH (06:07)
[2020-05-21] MEDS: FUROSEMIDE 40 MG TAB PO SCH (09:00)
[2020-05-21] MEDS: HumaLOG INSULIN (NovoLOG) PER UNIT SC SCH (09:06)
[2020-05-21] MEDS: DOCUSATE SODIUM 100MG CAPSULE PO SCH (09:07)
[2020-05-21] MEDS: SENNA 8.6 MG TAB (SENOKOT) PO SCH (09:07)
[2020-05-21] MEDS: MULTIVITAMINS/MINERALS THERAP 1 TAB PO SCH (09:07)
[2020-05-21] MEDS: OMEPRAZOLE 20 MG CAP PO SCH (09:07)
[2020-05-21] MEDS: allopurinoL 100 MG TAB PO SCH (09:08)
[2020-05-21] MEDS: FOLIC ACID 1 MG TAB PO SCH (09:08)
[2020-05-21] MEDS: FERROUS GLUCONATE 324 MG TAB PO SCH (09:08)
[2020-05-21] MEDS: LORATADINE 10 MG TAB PO SCH (09:08)
[2020-05-21] MEDS: TAMSULOSIN 0.4 MG CAP PO SCH (09:08)
[2020-05-21] MEDS: OMEGA-3 1000MG CAPSULE PO SCH (09:08)
[2020-05-21] MEDS: DIGOXIN 0.125 MG TAB PO SCH (09:09)
[2020-05-21] MEDS: MIRALAX *UNIT DOSE* 17GM PACKET PO SCH (09:11)
[2020-05-21] MEDS: POTASSIUM CHLORIDE 10 MEQ SR TABLET PO SCH (09:11)
[2020-05-21 10:00] VITALS: BP 111/68
== END 2020-05-21 11:11 | DRG 291 ==
LOC: EDBD 17:14 → M ED 17:14 → EDBEDREQSVC 19:51 → M ED INP 19:59 → M MSPAV 05-16 17:44
PROVIDERS: ADMIT Internal Medicine; ATTEND General Practice
DX: I13.0 Hypertensive heart and chronic kidney disease with heart failure and stage 1 through stage 4 chronic kidney disease, or unspecified chronic kidney disease (principal); I50.43 Acute on chronic combined systolic (congestive) and diastolic (congestive) heart failure; N17.9 Acute kidney failure, unspecified; E87.2 Acidosis; N39.0 Urinary tract infection, site not specified; I48.20 Chronic atrial fibrillation, unspecified; Z66 Do not resuscitate; M10.9 Gout, unspecified; I35.0 Nonrheumatic aortic (valve) stenosis; E03.9 Hypothyroidism, unspecified; E11.649 Type 2 diabetes mellitus with hypoglycemia without coma; R53.1 Weakness; N18.30 Chronic kidney disease, stage 3 unspecified; E11.22 Type 2 diabetes mellitus with diabetic chronic kidney disease; B95.2 Enterococcus as the cause of diseases classified elsewhere; D50.9 Iron deficiency anemia, unspecified; G47.33 Obstructive sleep apnea (adult) (pediatric); H91.10 Presbycusis, unspecified ear; I95.89 Other hypotension; I71.2 Thoracic aortic aneurysm, without rupture; Z86.718 Personal history of other venous thrombosis and embolism; Z86.711 Personal history of pulmonary embolism; Z95.828 Presence of other vascular implants and grafts; N40.0 Benign prostatic hyperplasia without lower urinary tract symptoms; Z87.891 Personal history of nicotine dependence; Z79.4 Long term (current) use of insulin; Z20.828 Contact with and (suspected) exposure to other viral communicable diseases; Z79.899 Other long term (current) drug therapy; Z88.8 Allergy status to other drugs, medicaments and biological substances

== ENCOUNTER → 2020-05-19 | Outpatient (REF) | payer MEDICARE, MEDICAID ==
[~2020-05-19] MED LIST changes: +FURO40TA2 PO
== END ==
PROVIDERS: ATTEND Physician Assistant
DX: Z53.9 Procedure and treatment not carried out, unspecified reason (principal)

== ENCOUNTER → 2020-05-27 | Outpatient (REF) ==
[2020-05-27 10:04] LABS: HEMOGLOBIN 9.9 g/dl (13.5-17.5); MEAN CORPUSCULAR HEMOGLOBIN 32.8 pg (27.0-33.0); MEAN CORPUSCULAR HGB CONC 31.9 g/dl (32.0-36.5); MEAN CORPUSCULAR VOLUME 102.6 fl (80.0-96.0); PLATELET COUNT, AUTOMATED 126 10^3/uL (150-450); RED BLOOD COUNT 3.02 10^6/uL (4.30-6.10); WHITE BLOOD COUNT 8.3 10^3/uL (4.0-10.0)
[2020-05-27 10:28] LABS: HEMOGLOBIN A1c 5.3 %
[2020-05-27 10:48] LABS: ALBUMIN 2.4 GM/DL (3.2-5.2); BILIRUBIN,TOTAL 0.9 MG/DL (0.2-1.0); CALCIUM LEVEL 8.2 MG/DL (8.8-10.2); CREATININE FOR GFR 1.55 MG/DL (0.70-1.30); GLOMERULAR FILTRATION RATE 45.6 (>35); POTASSIUM SERUM 4.9 MEQ/L (3.5-5.1); TOTAL PROTEIN 6.1 GM/DL (6.4-8.2)
[2020-05-27 10:50] LABS: ALBUMIN 2.4 GM/DL (3.2-5.2); CALCIUM LEVEL 8.2 MG/DL (8.8-10.2); CREATININE FOR GFR 1.57 MG/DL (0.70-1.30); GLOMERULAR FILTRATION RATE 44.9 (>35); PHOSPHORUS LEVEL 3.8 MG/DL (2.5-4.9); POTASSIUM SERUM 4.9 MEQ/L (3.5-5.1); THYROID STIMULATING HORMONE 4.1 uIU/ML (0.358-3.740)
== END ==
LOC: SKLAB5 12:19
PROVIDERS: ATTEND Internal Medicine
DX: E03.9 Hypothyroidism, unspecified (principal); E11.9 Type 2 diabetes mellitus without complications; I48.91 Unspecified atrial fibrillation

== ENCOUNTER → 2020-05-28 | Outpatient (REF) ==
--- NOTE | 2020-05-28 09:17 | REP ---
INDICATION: CHF COMPARISON: 05/15/2020 TECHNIQUE: Portable AP view of the chest FINDINGS: Cardiomegaly and diffuse chronic fibrosis is again appreciated. Superimposed interstitial edema as well as lower lobe infiltrates and small to moderate left pleural effusion are appreciated. Differential diagnosis includes pulmonary edema and pneumonia. Correlation is required. No pneumothorax. Skeletal structures are stable. IMPRESSION: Findings described above. Differential diagnosis includes pulmonary edema and multifocal pneumonia. <Electronically signed by Thomas Landaverde > 05/28/20 0913
[2020-05-28 12:01] LABS: BLOOD UREA NITROGEN 41 MG/DL (7-18); CALCIUM LEVEL 8.3 MG/DL (8.8-10.2); CARBON DIOXIDE LEVEL 19 MEQ/L (21-32); CHLORIDE LEVEL 108 MEQ/L (98-107); CREATININE FOR GFR 1.54 MG/DL (0.70-1.30); GLUCOSE, FASTING 92 MG/DL (70-100); POTASSIUM SERUM 4.3 MEQ/L (3.5-5.1); SODIUM LEVEL 138 MEQ/L (136-145)
== END ==
LOC: SKLAB5 06:45
PROVIDERS: ATTEND Internal Medicine
DX: I50.9 Heart failure, unspecified (principal)

== ENCOUNTER → 2020-05-29 | Outpatient (REF) ==
[2020-05-29 10:01] LABS: HEMATOCRIT 33.1 % (42.0-52.0); HEMOGLOBIN 10.8 g/dl (13.5-17.5); MEAN CORPUSCULAR HEMOGLOBIN 33.4 pg (27.0-33.0); MEAN CORPUSCULAR HGB CONC 32.6 g/dl (32.0-36.5); MEAN CORPUSCULAR VOLUME 102.5 fl (80.0-96.0); PLATELET COUNT, AUTOMATED 128 10^3/uL (150-450); RED BLOOD COUNT 3.23 10^6/uL (4.30-6.10); WHITE BLOOD COUNT 8.3 10^3/uL (4.0-10.0)
[2020-05-29 10:32] LABS: CALCIUM LEVEL 8.1 MG/DL (8.8-10.2); CREATININE FOR GFR 1.51 MG/DL (0.70-1.30); POTASSIUM SERUM 4.2 MEQ/L (3.5-5.1)
== END ==
LOC: SKLAB5 06:24
PROVIDERS: ATTEND Internal Medicine
DX: I50.9 Heart failure, unspecified (principal)

== ENCOUNTER → 2020-05-30 | Outpatient (REF) ==
[2020-05-30 12:11] LABS: CALCIUM LEVEL 8.2 MG/DL (8.8-10.2); CREATININE FOR GFR 1.48 MG/DL (0.70-1.30); GLOMERULAR FILTRATION RATE 48.1 (>35); POTASSIUM SERUM 4.5 MEQ/L (3.5-5.1)
== END ==
LOC: SKLAB5 13:01
PROVIDERS: ATTEND Internal Medicine
DX: I50.9 Heart failure, unspecified (principal)

== ENCOUNTER → 2020-05-31 | Outpatient (REF) ==
[2020-05-31 10:26] LABS: CALCIUM LEVEL 7.7 MG/DL (8.8-10.2); CREATININE FOR GFR 1.47 MG/DL (0.70-1.30); GLOMERULAR FILTRATION RATE 48.5 (>35); POTASSIUM SERUM 3.6 MEQ/L (3.5-5.1)
== END ==
LOC: SKLAB5 12:57
PROVIDERS: ATTEND Internal Medicine
DX: I50.9 Heart failure, unspecified (principal)

== ENCOUNTER → 2020-06-02 | Outpatient (REF) ==
[2020-06-02 11:00] LABS: CALCIUM LEVEL 8.3 MG/DL (8.8-10.2); CREATININE FOR GFR 1.31 MG/DL (0.70-1.30); GLOMERULAR FILTRATION RATE 55.4 (>35); POTASSIUM SERUM 3.4 MEQ/L (3.5-5.1)
== END ==
LOC: SKLAB5 13:00
PROVIDERS: ATTEND Internal Medicine
DX: I50.9 Heart failure, unspecified (principal)

== ENCOUNTER → 2020-06-04 | Outpatient (REF) ==
[2020-06-04 09:00] LABS: BLOOD UREA NITROGEN 24 MG/DL (7-18); CALCIUM LEVEL 8.1 MG/DL (8.8-10.2); CARBON DIOXIDE LEVEL 26 MEQ/L (21-32); CHLORIDE LEVEL 103 MEQ/L (98-107); CREATININE FOR GFR 1.16 MG/DL (0.70-1.30); GLOMERULAR FILTRATION RATE > 60.0 (>35); GLUCOSE, FASTING 182 MG/DL (70-100); POTASSIUM SERUM 3.8 MEQ/L (3.5-5.1); SODIUM LEVEL 137 MEQ/L (136-145)
== END ==
LOC: SKLAB5 07:07
PROVIDERS: ATTEND Internal Medicine
DX: Z11.52 Encounter for screening for COVID-19 (principal); I50.9 Heart failure, unspecified; N18.9 Chronic kidney disease, unspecified; E11.22 Type 2 diabetes mellitus with diabetic chronic kidney disease

== ENCOUNTER → 2020-06-05 | Outpatient (REF) ==
[2020-06-05 12:48] LABS: ALBUMIN 2.5 GM/DL (3.2-5.2); CALCIUM LEVEL 8.2 MG/DL (8.8-10.2); CREATININE FOR GFR 1.24 MG/DL (0.70-1.30); PHOSPHORUS LEVEL 2.4 MG/DL (2.5-4.9); POTASSIUM SERUM 3.7 MEQ/L (3.5-5.1)
== END ==
LOC: SKLAB5 09:01
PROVIDERS: ATTEND Internal Medicine
DX: N28.9 Disorder of kidney and ureter, unspecified (principal)

== ENCOUNTER → 2020-06-06 | Outpatient (REF) ==
[2020-06-06 10:27] LABS: CALCIUM LEVEL 8.3 MG/DL (8.8-10.2); CREATININE FOR GFR 1.33 MG/DL (0.70-1.30); GLOMERULAR FILTRATION RATE 54.4 (>35); POTASSIUM SERUM 4.3 MEQ/L (3.5-5.1)
== END ==
LOC: SKLAB5 07:52
PROVIDERS: ATTEND Internal Medicine
DX: I50.9 Heart failure, unspecified (principal)

== ENCOUNTER → 2020-06-10 | Outpatient (REF) ==
[2020-06-10 10:04] LABS: ALBUMIN 2.6 GM/DL (3.2-5.2); CALCIUM LEVEL 8.2 MG/DL (8.8-10.2); CREATININE FOR GFR 1.31 MG/DL (0.70-1.30); GLOMERULAR FILTRATION RATE 55.4 (>35); PHOSPHORUS LEVEL 2.9 MG/DL (2.5-4.9); POTASSIUM SERUM 4.4 MEQ/L (3.5-5.1)
== END ==
LOC: SKLAB5 12:30
PROVIDERS: ATTEND Internal Medicine
DX: N18.9 Chronic kidney disease, unspecified (principal)

== ENCOUNTER → 2020-06-11 | Outpatient (REF) | LOC: SKLAB5 06:46 | PROVIDERS: ATTEND Internal Medicine | DX: Z20.822 Contact with and (suspected) exposure to COVID-19 (principal) ==